=== PATIENT | male | born 1935 ===

== ENCOUNTER 2017-03-20 19:40 | Inpatient (IN) | payer MEDICARE, MEDICAID ==
--- NOTE | 2017-03-20 20:08 | C.PDOC ---
History Of Present Illness 81 y/o male with previous medical history of diabetes, hypertension, hypercholesterolemia, arthritis, CAD and Parkinson's disease brought to ED by EMS with reported complains of headache associated with dizziness, body aches. Patient is a poor historian. Reported "pain all over the place" as per EMS/ nursing staff. Patient lives at home alone with daily homemaker. Denies vomiting , diarrhea, or fevers. Review of prior records: DC FROM [facility] S/P UTI, RHABDOMYOLYSIS Time Seen by Provider: 03/20/17 20:06 Chief Complaint (Nursing): Dizziness/Lightheaded History Per: EMS, Other (nursing staff) History/Exam Limitations: other (poor historian) Onset/Duration Of Symptoms: Days Current Symptoms Are (Timing): Still Present Recent travel outside of the [place]: No Additional History Per: Prior Records Past Medical History Reviewed: Historical Data, Nursing Documentation, Vital Signs Vital Signs: Last Vital Signs Temp 97.9 F 03/20/17 19:51 Pulse 70 03/20/17 19:51 Resp 18 03/20/17 19:51 BP 161/54 H 03/20/17 19:51 Pulse Ox 99 03/20/17 21:26 - Medical History PMH: Arthritis, Asthma, CAD, Diabetes, HTN, Hypercholesterolemia, Hyperlipidemia , Parkinson's Disease, Chronic Kidney Disease Surgical History: Coronary Stent, Pacemaker - [facility] Procedures TETANUS TOXOID ADMINIST (10/01/13) Family History: States: Unknown Family Hx - Social History Hx Tobacco Use: No Hx Alcohol Use: No Hx Substance Use: No - Immunization History Hx Tetanus Toxoid Vaccination: No Hx Influenza Vaccination: Yes Hx Pneumococcal Vaccination: No Review Of Systems Review Of Systems: ROS cannot be obtained secondary to pt's inabilty to answer questions. Physical Exam - Physical Exam Appears: Non-toxic, No Acute Distress Skin: Warm, Dry Head: Atraumatic, Normacephalic Oral Mucosa: Moist Chest: Symmetrical Cardiovascular: Rhythm Regular Respiratory: Normal Breath Sounds, No Rales, No Rhonchi, No Wheezing Gastrointestinal/Abdominal: Soft, No Tenderness, No Guarding, No Rebound Back: Normal Inspection Extremity: Normal ROM, Capillary Refill (< 2 sec. ) Neurological/Psych: Oriented x3, Normal Speech, Normal Cognition ED Course And Treatment - Laboratory Results Result Diagrams: 03/20/17 20:32 03/20/17 20:32 O2 Sat by Pulse Oximetry: 99 (RA) Pulse Ox Interpretation: Normal - Radiology CXR: Interpreted by Me CXR Interpretation: Yes: No Acute Disease - CT Scan/US CT Head Other Rad Studies (CT/US): Read By Radiologist, Radiology Report Reviewed CT/US Interpretation: IMPRESSION: No acute intracranial abnormality. Progress - Data Reviewed Data Reviewed: Lab, Diagnostic imaging, EKG, Old records ED OBSERVATION Date of observation admission: 03/20/17 Time of observation admission: 20:15 - Observation admission statement Patient is being placed in observation because:: DIZZY, GEN PAIN, HEADACHE - Goals of Observation Goals of observation are:: MED CLEAR - Progress Note Progress Note: 03/20/17 20:24 VBG, CT Head, EKG, CXR, LABS, UA ORDERED. IVFs GIVEN. 03/20/17 21:16 EXAM UNCH FROM PRIOR. VSS. PT DENIES HO GI BLEED, PRIOR NEED FOR TRANSFUSION. + CONSTIPATION. PT ADVISED OF NEED FOR TRANSFUSION DUE TO CO DIZZYNESS. VOICES UNDERSTANDING BUT DOES NOT WISH BLOOD TRANSFUSION. AO3 CLEAR SPEECH AND THOUGHT, UNDERSTANDS RISK BENEFIT OF TRANSFUSION. WISHES DC HOME. 03/20/17 21:41 PT NOW AGREES FOR TRANSFUSION, ADMISSION. CONSENT SIGNED 03/20/17 21:42 D/W DR SIMON BENDER IRON SETTER WILL ADMIT Disposition Counseled Patient/Family Regarding: Studies Performed, Diagnosis, Need For Followup - Disposition Disposition: HOSPITALIZED Disposition Time: 21:42 Condition: STABLE - POA Present On Arrival: None - Clinical Impression Clinical Impression: UTI (urinary tract infection), GI bleed, Anemia - Scribe Statement The provider has reviewed the documentation as recorded by the Manuel Kincaid Provider Scribe Attestation: All medical record entries made by the Alemibannabelle were at my direction and personally dictated by me. I have reviewed the chart and agree that the record accurately reflects my personal performance of the history, physical exam, medical decision making, and the department course for this patient. I have also personally directed, reviewed, and agree with the discharge instructions and disposition. Decision To Admit - Pt Status Changed To: Hospital Disposition Of: Inpatient - Admit Certification Admit to Inpatient:: After my assessment, the patient will require hospitalization for at least two midnights. This is because of the severity of symptoms shown, intensity of services needed, and/or the medical risk in this patient being treated as an outpatient. - InPatient: Physician Admission Certification: I certify that this patient requires 2 or more midnights of care for the following reason:: SEE NOTE - . Bed Request Type: Telemetry Admitting Physician: Derek Mcmillan Patient Diagnosis: UTI (urinary tract infection), GI bleed, Anemia
[2017-03-20 20:34] LABS: BASO % 0.2 % (0.0-2.0); EOS # 0.1 K/uL (0.0-0.7); EOS % 2.1 % (0.0-4.0); HEMATOCRIT 25.3 % (35.0-51.0); LYMPH # 1.5 K/uL (1.0-4.3); LYMPH % 27.7 % (20.0-40.0); MEAN CELL VOLUME 81.2 fL (80.0-94.0); MEAN CORPUSCULAR HEMOGLOBIN 27.3 pg (27.0-31.0); MEAN CORPUSCULAR HGB CONC 33.6 g/dL (33.0-37.0); MEAN PLATELET VOLUME 8.8 fL (7.2-11.7); MONO # 0.6 K/uL (0.0-0.8); MONO % 10.7 % (0.0-10.0); RED CELL DISTRIBUTION WIDTH 15.6 % (11.5-14.5); WHITE BLOOD COUNT 5.6 K/uL (4.8-10.8)
[2017-03-20 20:38] LABS: VENOUS BLOOD GAS BASE EXCESS -1.7 mmol/L (0.0-2.0); VENOUS BLOOD GAS PCO2 45 mmHg (40-60); VENOUS BLOOD PH 7.34 (7.32-7.43)
[2017-03-20 20:46] LABS: CHLORIDE 101 mmol/L (98-107); POTASSIUM 4.4 mmol/L (3.6-5.2); SODIUM 135 mmol/L (132-148)
[2017-03-20 20:48] LABS: RBC URINE 3 /hpf (0-3); URINE BACTERIA FEW (<OCC); URINE BILIRUBIN NEGATIVE (NEGATIVE); URINE BLOOD NEGATIVE (NEGATIVE); URINE COLOR Yellow (YELLOW); URINE GLUCOSE (UA) 3+ mg/dL (Normal); URINE KETONE NEGATIVE (NEGATIVE); URINE LEUKOCYTE ESTERASE 3+ Leu/uL (Negative); URINE PROTEIN NEGATIVE (NEGATIVE); URINE UROBILINOGEN NORMAL mg/dL (0.2-1.0); WBC CLUMPS MOD /hpf; WBC URINE 371 /hpf (0-5)
[2017-03-20 20:48] LABS: GFR AFRICAN-AMERICAN > 60
[2017-03-20 20:49] LABS: BLOOD UREA NITROGEN 48 mg/dL (9-20); CALCIUM 8.7 mg/dl (8.6-10.4); CARBON DIOXIDE 24 mmol/L (22-30); GLUCOSE,RANDOM 258 mg/dL (75-110)
--- NOTE | 2017-03-20 21:08 | CT ---
EXAM: CT Head Without Intravenous Contrast CLINICAL HISTORY: 81 years old, male; Pain; Headache; Headache not specified; Additional info: Headache, gen pain ho parkinsons TECHNIQUE: Axial computed tomography images of the head/brain without intravenous contrast. This CT exam was performed using one or more of the following dose reduction techniques: automated exposure control, adjustment of the mA and/or kV according to patient size, and/or use of iterative reconstruction technique. COMPARISON: CT - HEAD W/O CONTRAST 10/25/2015 2:08:49 PM FINDINGS: Brain: [id number] atrophy. No intracranial hemorrhage. No mass. No definite edema. Ventricles: No hydrocephalus. Bones/joints: No acute fracture. Soft tissues: Unremarkable. Vasculature: Mild atherosclerotic disease of intracranial arteries. Sinuses: Scattered minimal mucosal thickening. Mastoid air cells: No mastoid effusion. Orbits: Unremarkable as visualized. IMPRESSION: 1. No acute intracranial abnormality. 2. Incidental/non-acute findings are described above.
[2017-03-20] MEDS: Sodium Chloride 0.9% 1,000 ML IV SCH (21:25)
[2017-03-20] MEDS ORDERED: cefTRIAXone IV 1 gm in Dextros 50 ML IV ONE (21:30)
[2017-03-20] MEDS ORDERED: cefTRIAXone IV 1 gm in Dextros 50 ML IVPB ONE (21:34)
--- NOTE | 2017-03-20 22:19 | CP.PCM.HP ---
<Rocael Lam - Last Filed: 03/21/17 02:45> History of Present Illness - History of Present Illness History of Present Illness: Patient is an 81 year old male, with PMHx of diabetes, hypertension, hypercholesterolemia, arthritis, CAD and Parkinson's disease brought to ED by BLS. He is c/o of headache, associated with dizziness, body aches. Patient is a poor historian, and is oriented to person and place, but not time or context. He denies abdominal pain, nausea, vomiting, diarrhea, urinary symptoms, subjective fever, or chills. Pt does admit to constipation but denies any clark blood in stools. He responds, "I don't know" when asked if he has ever had a colonoscopy. Patient lives at home alone with daily homemaker for some hours of the day. He states that he is able to walk with a rolling walker at baseline, and denies any recent falls. Review of EMR however shows syncopal episode/fall that led to admission in December of 2016. In that admission he was treated for UTI, and rhabdomyolysis. Will reach out to daughter for further history in AM. PMHx: see above PSHx: pacemaker placement, coronary stent Family Hx: denies Allergies: NKA PMD: unknown Pharmacy: [facility] Present on Admission - Present on Admission Any Indicators Present on Admission: No Review of Systems - Review of Systems Systems not reviewed;Unavailable: Altered Mental Status - Constitutional Constitutional: absent: Chills, Fever - EENT Eyes: absent: Change in Vision Ears: absent: Decreased Hearing Nose/Mouth/Throat: absent: Sore Throat - Cardiovascular Cardiovascular: absent: Chest Pain, Chest Pain at Rest, Dyspnea - Respiratory Respiratory: absent: Cough, Dyspnea on Exertion - Gastrointestinal Gastrointestinal: absent: Abdominal Pain, Nausea, Vomiting - Genitourinary Genitourinary: absent: Difficulty Urinating, Dysuria - Musculoskeletal Musculoskeletal: absent: Back Pain, Numbness, Tingling - Integumentary Integumentary: absent: Dry Skin, Wounds Additional comments: no sacral ulcers noted - Neurological Neurological: absent: Tingling, Weakness Past Patient History - Past Medical History & Family History Past Medical History?: Yes - Past Social History Smoking Status: Never Smoked - CARDIAC Hx Hypercholesterolemia: Yes Hx Hypertension: Yes Hx Pacemaker: Yes - PULMONARY Hx Asthma: Yes - NEUROLOGICAL Hx Parkinson's Disease: Yes - RENAL Hx Chronic Kidney Disease: Yes - ENDOCRINE/METABOLIC Hx Endocrine Disorders: Yes Hx Diabetes Mellitus Type 2: Yes - MUSCULOSKELETAL/RHEUMATOLOGICAL Hx Arthritis: Yes - PSYCHIATRIC Hx Substance Use: No - SURGICAL HISTORY Hx Coronary Stent: Yes - ANESTHESIA Hx Anesthesia: Yes Hx Anesthesia Reactions: No Meds Allergies/Adverse Reactions: Allergies Allergy/AdvReac Type Severity Reaction Status Date / Time No Known Allergies Allergy Verified 10/25/15 12:58 Physical Exam - Head Exam Head Exam: ATRAUMATIC, NORMAL INSPECTION, NORMOCEPHALIC - Eye Exam Eye Exam: EOMI Pupil Exam: PERRL - ENT Exam ENT Exam: Mucous Membranes Dry - Respiratory Exam Respiratory Exam: Clear to Auscultation Bilateral, NORMAL BREATHING PATTERN. absent: Accessory Muscle Use - Cardiovascular Exam Cardiovascular Exam: REGULAR RHYTHM, +S1, +S2 - GI/Abdominal Exam GI & Abdominal Exam: Normal Bowel Sounds, Soft. absent: Tenderness - Rectal Exam Rectal Exam: Hemorrhoids (internal), NORMAL INSPECTION. absent: Black Stool, Bloody Stool - Neurological Exam Neurological exam: Alert Additional comments: AAOx2 only, not oriented to time or context - Skin Skin Exam: Normal Color, Warm Results - Vital Signs Recent Vital Signs: Last Vital Signs Temp 97.9 F 03/20/17 19:51 Pulse 70 03/20/17 19:51 Resp 18 03/20/17 19:51 BP 161/54 H 03/20/17 19:51 Pulse Ox 99 03/20/17 21:43 - Labs Result Diagrams: 03/21/17 02:12 03/20/17 20:32 Assessment & Plan - Assessment and Plan (Free Text) Assessment: 81 yo male, with PMHx of diabetes, hypertension, hypercholesterolemia, arthritis, CAD and Parkinson's disease, who presents to [place] with dizziness. FOBT positive with downtrending hemoglobin, thus GI bleed. Plan: GI bleed H/H 8.5/25.3 - on previous admission in 12/22/16: 11.6/34.8 FOBT positive Type and screen Type and cross, 2 units PRBCs - Transfusion consent signed by daughter JOSE score: 2 (Anticoagulation can be considered, pt does have moderate risk for major bleed) f/u CBC Q6H, iron studies GI consult: Dr. Contreras, help appreciated - f/u reccs NS @ 100cc/hr Protonix Drip T2DM Accuchecks ACHS Insulin - low (npo) f/u A1C HTN Moderately elevated in ED Monitor CAD Hold home Lipitor Parkinson's Disease Hold home Sinimet UTI UA (03/20/17): LE 3+, Nitrate negative, WBC 371, few bacteria, 3+ glucose Ceftriaxone 1gm Daily x 3 days f/u urine, blood cx Prophylaxis VTE: Hold DVT due to active GI bleed, SCDs GI: Protonix Drip <Derek Mcmillan - Last Filed: 03/21/17 06:41> Results - Vital Signs Recent Vital Signs: Last Vital Signs Temp 98.3 F 03/21/17 03:01 Pulse 63 03/21/17 03:01 Resp 20 03/21/17 03:01 BP 145/40 L 03/21/17 03:01 Pulse Ox 96 03/21/17 03:01 - Labs Result Diagrams: 03/21/17 02:12 03/20/17 20:32 Labs: Laboratory Results - last 24 hr 03/21/17 02:12 WBC 5.8 RBC 3.00 L Hgb 8.1 L Hct 24.1 L MCV 80.3 MCH 27.1 MCHC 33.8 RDW 15.6 H Plt Count 218 MPV 8.7 Neut % (Auto) 55.9 Lymph % (Auto) 30.8 [place] % (Auto) 10.8 H Eos % (Auto) 2.3 Baso % (Auto) 0.2 Neut # 3.2 Lymph # 1.8 [place] # 0.6 Eos # 0.1 Baso # 0.0 Assessment & Plan - Date & Time Date: 03/21/17 (I have seen and examined the patient. I agree with the findings and plan of care as documented by Dr. Lam. Patient with GI bleed. Consult to GI. Protonix. Type and cross 2 units. Monitor CBC. If BP unstable or dramatic drop in hemoglobin, will transfuse. Iron studies. Also with history of diabetes and Parkinson's. Continue home meds. Monitor for acute changes.) Time: 06:40 Attending/Attestation - Attestation I have personally seen and examined this patient.: Yes I have fully participated in the care of the patient.: Yes I have reviewed all pertinent clinical information: Yes
[2017-03-21 02:16] LABS: BASO % 0.2 % (0.0-2.0); EOS # 0.1 K/uL (0.0-0.7); EOS % 2.3 % (0.0-4.0); HEMATOCRIT 24.1 % (35.0-51.0); LYMPH # 1.8 K/uL (1.0-4.3); LYMPH % 30.8 % (20.0-40.0); MEAN CELL VOLUME 80.3 fL (80.0-94.0); MEAN CORPUSCULAR HEMOGLOBIN 27.1 pg (27.0-31.0); MEAN CORPUSCULAR HGB CONC 33.8 g/dL (33.0-37.0); MEAN PLATELET VOLUME 8.7 fL (7.2-11.7); MONO # 0.6 K/uL (0.0-0.8); MONO % 10.8 % (0.0-10.0); NRBC % 0.1 % (0.0-2.0); RED CELL DISTRIBUTION WIDTH 15.6 % (11.5-14.5); WHITE BLOOD COUNT 5.8 K/uL (4.8-10.8)
[2017-03-21] MEDS: Pantoprazole 80 MG in Sodium Chloride 0.9% 100 ML IVP SCH ×2 (05:56→06:07)
[2017-03-21] MEDS: Sodium Chloride 0.9% 1,000 ML IV SCH ×2 (06:06→16:51)
[2017-03-21] MEDS: (Novolin R) Insulin Human Regular 100 units/ml vial SC SCH ×4 (07:30→22:17)
--- NOTE | 2017-03-21 08:52 | RAD ---
PROCEDURE: CHEST RADIOGRAPH, 1 VIEW HISTORY: GEN PAIN, DIZZY COMPARISON: 10/25/2015 FINDINGS: LUNGS: Mild venous congestion. Patchy left basilar airspace opacity with small left pleural effusion. Biapical pleural thickening with upper lobe granulomatous changes. Linear atelectatic changes in the left mid lung zone. PLEURA: As above. CARDIOVASCULAR: Cardiomegaly. Left-sided pacemaker. OSSEOUS STRUCTURES: Degenerative changes in the spine and shoulders. VISUALIZED UPPER ABDOMEN: Normal. OTHER FINDINGS: None. IMPRESSION: Mild venous congestion. Patchy left basilar airspace opacity with small left pleural effusion. Biapical pleural thickening with upper lobe granulomatous changes. Linear atelectatic changes in the left mid lung zone.
[2017-03-21] MEDS ORDERED: Pantoprazole 80 MG in Sodium Chloride 0.9% 100 ML IV SCH (13:00)
--- NOTE | 2017-03-21 14:00 | CP.PCM.CON ---
History of Present Illness - History of Present Illness History of Present Illness: GI consult requested by hospitalist- Daughter at bedside who is not able to give any history. History derived from the chart. This is a 81 year old male, with PMHx of diabetes, hypertension, hypercholesterolemia, arthritis, CAD with PCM and Parkinson's disease brought to ED with dizziness. Patient is a poor historian, and is oriented to person and place, but not time or context. He denies abdominal pain, nausea, vomiting, diarrhea, urinary symptoms, subjective fever, or chills or rectal bleeding or change in bowels. HE was admitted to [facility] with similar complains as no family was available and palliative consult was called but never established. Patient lives at home alone with daily homemaker for some hours of the day. Review of EMR however shows syncopal episode/fall that led to admission in December of 2016. In that admission he was treated for UTI, and rhabdomyolysis. Bedside rectal exam done in presence of daughter which was yellow stool. His Hb has dropped from baseline of 11 to 8. Family not sure if he had EGD/ colonoscopy in the past Review of Systems - Review of Systems Review of Systems: Patient not oriented and unable to give history Past Patient History - Past Medical History & Family History Past Medical History?: Yes - Past Social History Smoking Status: Never Smoked - CARDIAC Hx Hypercholesterolemia: Yes Hx Hypertension: Yes Hx Pacemaker: Yes - PULMONARY Hx Asthma: Yes - NEUROLOGICAL Hx Parkinson's Disease: Yes - RENAL Hx Chronic Kidney Disease: Yes - ENDOCRINE/METABOLIC Hx Endocrine Disorders: Yes Hx Diabetes Mellitus Type 2: Yes - MUSCULOSKELETAL/RHEUMATOLOGICAL Hx Falls: Yes - PSYCHIATRIC Hx Substance Use: No - SURGICAL HISTORY Hx Coronary Stent: Yes - ANESTHESIA Hx Anesthesia: Yes Hx Anesthesia Reactions: No Meds Allergies/Adverse Reactions: Allergies Allergy/AdvReac Type Severity Reaction Status Date / Time No Known Allergies Allergy Verified 10/25/15 12:58 - Medications Medications: Current Medications Sodium Chloride (Sodium Chloride 0.9%) 1,000 mls @ 100 mls/hr IV .Q10H NEO Last Admin: 03/21/17 06:06 Dose: 100 mls/hr Ceftriaxone Sodium 1 gm/ (Sodium Chloride) 100 mls @ 100 mls/hr IVPB DAILY NEO Stop: 03/24/17 10:01 Last Admin: 03/21/17 11:22 Dose: 100 mls/hr Insulin Human Regular (Novolin R) 0 unit SC ACHS NEO PRN Reason: Protocol Last Admin: 03/21/17 13:42 Dose: 2 unit Physical Exam - Constitutional Appears: Well, No Acute Distress, Younger Than Stated Age - Head Exam Head Exam: ATRAUMATIC, NORMAL INSPECTION, NORMOCEPHALIC - Eye Exam Eye Exam: Normal appearance Pupil Exam: NORMAL ACCOMODATION - ENT Exam ENT Exam: Mucous Membranes Moist, Normal Exam - Respiratory Exam Respiratory Exam: Clear to Auscultation Bilateral, NORMAL BREATHING PATTERN - Cardiovascular Exam Cardiovascular Exam: REGULAR RHYTHM, RRR, +S1, +S2 - GI/Abdominal Exam GI & Abdominal Exam: Normal Bowel Sounds, Soft. absent: Tenderness Additional comments: NOn tender. No guarding - Extremities Exam Extremities exam: Positive for: normal inspection - Back Exam Back exam: NORMAL INSPECTION Additional comments: no rash or decubiti - Neurological Exam Neurological exam: Alert, Reflexes Normal - Psychiatric Exam Psychiatric exam: Normal Affect, Normal Mood - Skin Skin Exam: Dry, Intact Results - Vital Signs Recent Vital Signs: Last Vital Signs Temp 97.8 F 03/21/17 10:30 Pulse 64 03/21/17 10:30 Resp 20 03/21/17 10:30 BP 168/63 H 03/21/17 10:30 Pulse Ox 95 03/21/17 10:30 - Labs Result Diagrams: 03/21/17 02:12 03/20/17 20:32 Labs: Laboratory Results - last 24 hr 03/21/17 03/21/17 02:12 11:46 WBC 5.8 RBC 3.00 L Hgb 8.1 L Hct 24.1 L MCV 80.3 MCH 27.1 MCHC 33.8 RDW 15.6 H Plt Count 218 MPV 8.7 Neut % (Auto) 55.9 Lymph % (Auto) 30.8 [place] % (Auto) 10.8 H Eos % (Auto) 2.3 Baso % (Auto) 0.2 Neut # 3.2 Lymph # 1.8 [place] # 0.6 Eos # 0.1 Baso # 0.0 POC Glucose (mg/dL) 208 H Assessment & Plan - Assessment and Plan (Free Text) Assessment: This is a 81 yr old M with multiple comorbidities with positive UA and FOBT + with drop in Hb from 11 to 8 admitted for dizziness. No overt GI bleeding. Rectal exam at bedside with daughter and nurse present showed yellow stool. Unknown history of past endoscopic exam. Will watch for overt bleeding and trend Hct. Will send anemia work up and discuss with family regarding goals of care. Multiple admissions for same complaint and recent palliative care consult at [facility] but no established goals. Plan: - No overt s/s of GI bleeding - PPI daily in am - Discontinue PPI gtt - Start heart healthy diet - Discussion by team with family regarding goals of care - UA positive- send urine cultures - Iron panel to be sent - Transfusion as required by cardiac status - No urgent need for EGD/ colonoscopy although will benefit if family agrees - GI/DVT prophylaxis- please don't hold DVT prophylaxis- patient does not have overt GI bleeding. Has occult positive which is one sample and has low sensitivity - Will follow
--- NOTE | 2017-03-21 22:08 | CP.PCM.PN ---
<Liban Cross - Last Filed: 03/22/17 09:29> Subjective - Date & Time of Evaluation Date of Evaluation: 03/21/17 Time of Evaluation: 11:37 - Subjective Subjective: Pt seen and examined. Pt combative and not cooperative with exam. Pt says he feels fine. ROS unattainable due to pt being uncooperative. Objective - Vital Signs/Intake and Output Vital Signs (last 24 hours): Temp Pulse Resp BP Pulse Ox 98.6 F 60 20 165/72 H 95 03/21/17 15:28 03/21/17 18:09 03/21/17 15:28 03/21/17 15:28 03/21/17 15:28 Intake and Output: 03/21/17 03/22/17 18:59 06:59 Intake Total 1350 Balance 1350 - Medications Medications: Current Medications Sodium Chloride (Sodium Chloride 0.9%) 1,000 mls @ 100 mls/hr IV .Q10H NEO Last Admin: 03/21/17 16:51 Dose: 100 mls/hr Ceftriaxone Sodium 1 gm/ (Sodium Chloride) 100 mls @ 100 mls/hr IVPB DAILY NEO Stop: 03/24/17 10:01 Last Admin: 03/21/17 11:22 Dose: 100 mls/hr Insulin Human Regular (Novolin R) 0 unit SC ACHS NEO PRN Reason: Protocol Last Admin: 03/21/17 17:43 Dose: 2 unit - Labs Labs: 03/21/17 02:12 - Constitutional Appears: No Acute Distress - Head Exam Head Exam: ATRAUMATIC - Eye Exam Eye Exam: EOMI, PERRL - ENT Exam ENT Exam: Mucous Membranes Moist. absent: Mucous Membranes Dry - Respiratory Exam Respiratory Exam: Clear to Ausculation Bilateral. absent: Rales, Rhonchi, Wheezes - Cardiovascular Exam Cardiovascular Exam: +S1, +S2. absent: Gallop, Rubs - GI/Abdominal Exam GI & Abdominal Exam: Soft. absent: Tenderness - Extremities Exam Extremities Exam: Full ROM. absent: Pedal Edema - Neurological Exam Neurological Exam: Alert, Awake - Psychiatric Exam Psychiatric exam: Normal Affect, Normal Mood - Skin Skin Exam: Normal Color, Warm Assessment and Plan - Assessment and Plan (Free Text) Assessment: GI Bleed: H/H 8.1/24.1 FOBT positive Type and cross, 2 units PRBCs transfused GI consult: Dr. Guidry, help appreciated NS @ 100cc/hr Protonix Drip Follow up GI Recs UTI Afebrile, nontachycardic No leukocytosis UA: LE 3+, Nitrate negative, WBC 371, few bacteria, 3+ glucose Ceftriaxone 1 gm iv qd Urine cultures positive for e.coli Diabetes Mellitus: Accuchecks ACHS Insulin - low (npo) f/u A1C HTN Monitor; fluctuation between hypertension an dhypotension CAD Hold home Lipitor Parkinson's Disease Hold home Sinimet Prophylactic MeasureS: VTE: Hold DVT due to active GI bleed, SCDs GI: Protonix Drip <Madhu Larsen - Last Filed: 04/25/17 16:33> Objective - Vital Signs/Intake and Output Vital Signs (last 24 hours): Temp Pulse Resp BP Pulse Ox 97.9 F 60 20 123/59 L 96 04/01/17 16:00 04/01/17 16:00 04/01/17 16:00 04/01/17 16:00 04/01/17 16:00 - Labs Labs: 04/01/17 06:50 04/01/17 06:50 Attending/Attestation - Attestation I have personally seen and examined this patient.: Yes I have fully participated in the care of the patient.: Yes I have reviewed all pertinent clinical information, including history, physical exam and plan: Yes Notes (Text): Patient Seen and examined with the resident. Agree with the resident's evaluation, assessment and plan. GI Bleed: H/H 8.1/24.1 FOBT positive Type and cross, 2 units PRBCs transfused GI consult: Dr. Guidry, help appreciated NS @ 100cc/hr Protonix Drip Follow up GI Recs UTI Afebrile, nontachycardic No leukocytosis UA: LE 3+, Nitrate negative, WBC 371, few bacteria, 3+ glucose Ceftriaxone 1 gm iv qd Urine cultures positive for e.coli Diabetes Mellitus: Accuchecks ACHS Insulin - low (npo) f/u A1C
--- NOTE | 2017-03-21 23:41 | CARD ---
APPROVED REPORT EKG Measurement Heart [id number] <Conclusion> Undetermined rhythm Left axis deviation Right bundle branch block Inferior infarct, age undetermined Abnormal ECG
[2017-03-22] MEDS: Sodium Chloride 0.9% 1,000 ML IV SCH ×2 (03:02→13:34)
[2017-03-22 06:33] LABS: CHLORIDE 110 mmol/L (98-107); IRON 20 ug/dL (49-181); POTASSIUM 3.8 mmol/L (3.6-5.2); SODIUM 140 mmol/L (132-148)
[2017-03-22 06:35] LABS: ALKALINE PHOSPHATASE 49 U/L (38-126); ALT/SGPT 19 U/L (21-72); AST/SGOT 13 U/L (17-59); BILIRUBIN,TOTAL 1.3 mg/dL (0.2-1.3); BLOOD UREA NITROGEN 18 mg/dL (9-20); CARBON DIOXIDE 22 mmol/L (22-30); GFR AFRICAN-AMERICAN > 60; GLUCOSE,RANDOM 153 mg/dL (75-110); TOTAL PROTEIN 5.7 g/dL (6.3-8.3)
[2017-03-22 06:36] LABS: CALCIUM 8.2 mg/dl (8.6-10.4); MAGNESIUM 1.9 mg/dL (1.6-2.3); PHOSPHOROUS 2.7 mg/dL (2.5-4.5)
[2017-03-22 07:10] LABS: BASO % 0.2 % (0.0-2.0); EOS # 0.1 K/uL (0.0-0.7); EOS % 2.2 % (0.0-4.0); HEMATOCRIT 23.3 % (35.0-51.0); LYMPH # 1.9 K/uL (1.0-4.3); LYMPH % 34.7 % (20.0-40.0); MEAN CORPUSCULAR HEMOGLOBIN 27.1 pg (27.0-31.0); MEAN CORPUSCULAR HGB CONC 33.5 g/dL (33.0-37.0); MEAN PLATELET VOLUME 8.7 fL (7.2-11.7); MONO # 0.6 K/uL (0.0-0.8); MONO % 11.1 % (0.0-10.0); NRBC % 0.1 % (0.0-2.0); RED CELL DISTRIBUTION WIDTH 15.7 % (11.5-14.5); WHITE BLOOD COUNT 5.5 K/uL (4.8-10.8)
--- NOTE | 2017-03-22 08:07 | CP.PCM.PN ---
Subjective - Date & Time of Evaluation Date of Evaluation: 03/22/17 Time of Evaluation: 08:01 - Subjective Subjective: Patient seen and examined, resting comfortably in bed. He is awake and alert, though not oriented and unable to participate in meaningful conversation. According to nursing staff, no acute events overnight. No reported abdominal pain, nausea, vomiting, or rectal bleeding. Review of systems not able to be performed given patient with dementia. Objective - Vital Signs/Intake and Output Vital Signs (last 24 hours): Temp Pulse Resp BP Pulse Ox 98.4 F 69 20 180/61 H 96 03/21/17 23:20 03/22/17 00:00 03/21/17 23:20 03/21/17 23:20 03/21/17 23:20 Intake and Output: 03/22/17 03/22/17 06:59 18:59 Intake Total 1470 Balance 1470 - Medications Medications: Current Medications Sodium Chloride (Sodium Chloride 0.9%) 1,000 mls @ 100 mls/hr IV .Q10H [facility] Last Admin: 03/22/17 03:02 Dose: 100 mls/hr Ceftriaxone Sodium 1 gm/ (Sodium Chloride) 100 mls @ 100 mls/hr IVPB DAILY [facility] Stop: 03/24/17 10:01 Last Admin: 03/21/17 11:22 Dose: 100 mls/hr Insulin Human Regular (Novolin R) 0 unit SC ACHS [facility] PRN Reason: Protocol Last Admin: 03/21/17 22:17 Dose: Not Given - Labs Labs: 03/22/17 06:12 03/22/17 06:12 - Constitutional Appears: Non-toxic, No Acute Distress - Head Exam Head Exam: NORMAL INSPECTION - Eye Exam Eye Exam: EOMI, Normal appearance - ENT Exam ENT Exam: Mucous Membranes Moist - Respiratory Exam Respiratory Exam: Clear to Ausculation Bilateral - Cardiovascular Exam Cardiovascular Exam: REGULAR RHYTHM, +S1, +S2 - GI/Abdominal Exam GI & Abdominal Exam: Soft, Normal Bowel Sounds Additional comments: non tender to palpation in four quadrants - Extremities Exam Extremities Exam: Normal Inspection - Skin Skin Exam: Dry, Intact, Normal Color, Warm Assessment and Plan - Assessment and Plan (Free Text) Assessment: Parkinson's, dementia DM / HTN Hyperlipidemia CAD Dizziness in setting of iron deficiency anemia, fecal occult blood + UTI - gram negative urosepsis Plan: - Diet as tolerated - H/H stable, continue to monitor and transfuse as needed. No overt bleeding noted. - Continue with antibiotic therapy for UTI, awaiting urine culture results - No planned GI intervention given absence of overt GI bleeding and patient with multiple medical comorbidities, risks likely outweigh benefits in this situation. Will continue to monitor patient clinical course.
[2017-03-22 09:13] LABS: RETIC% 3.6 % (0.5-1.5)
[2017-03-22] MEDS: (Novolin R) Insulin Human Regular 100 units/ml vial SC SCH ×4 (09:44→22:00)
--- NOTE | 2017-03-22 15:50 | CP.PCM.PN ---
Addendum entered and electronically signed by Liban Cross DO 03/22/17 16: 05: Iron low, started on feosol 325 mg po bid Original Note: <Liban Cross - Last Filed: 03/22/17 15:46> Subjective - Date & Time of Evaluation Date of Evaluation: 03/22/17 Time of Evaluation: 09:07 - Subjective Subjective: Pt seen and examined. Pt agitated. PT reports that he is feeling well. Pt denies fever, chills, chest pain, shortness of breath, nausea, and vomiting. Objective - Vital Signs/Intake and Output Vital Signs (last 24 hours): Temp Pulse Resp BP Pulse Ox 97.9 F 66 20 178/71 H 95 03/22/17 10:29 03/22/17 10:29 03/22/17 10:29 03/22/17 10:29 03/22/17 10:29 Intake and Output: 03/22/17 03/22/17 06:59 18:59 Intake Total 1470 600 Balance 1470 600 - Medications Medications: Current Medications Ferrous Sulfate (Feosol) 325 mg PO BID [facility] Sodium Chloride (Sodium Chloride 0.9%) 1,000 mls @ 100 mls/hr IV .Q10H [facility] Last Admin: 03/22/17 13:34 Dose: 100 mls/hr Ceftriaxone Sodium 1 gm/ (Sodium Chloride) 100 mls @ 100 mls/hr IVPB DAILY [facility] Stop: 03/24/17 10:01 Last Admin: 03/22/17 10:30 Dose: 100 mls/hr Insulin Human Regular (Novolin R) 0 unit SC ACHS [facility] PRN Reason: Protocol Last Admin: 03/22/17 13:33 Dose: Not Given Pantoprazole Sodium (Protonix Inj) 40 mg IVP DAILY [facility] Last Admin: 03/22/17 10:30 Dose: 40 mg - Labs Labs: 03/22/17 06:12 03/22/17 06:12 - Constitutional Appears: Non-toxic - Head Exam Head Exam: ATRAUMATIC, NORMOCEPHALIC - Eye Exam Eye Exam: EOMI - ENT Exam ENT Exam: Mucous Membranes Moist - Neck Exam Neck Exam: Full ROM. absent: Lymphadenopathy - Respiratory Exam Respiratory Exam: Clear to Ausculation Bilateral - Cardiovascular Exam Cardiovascular Exam: +S1. absent: Gallop - GI/Abdominal Exam GI & Abdominal Exam: Soft. absent: Tenderness - Extremities Exam Extremities Exam: absent: Pedal Edema - Neurological Exam Neurological Exam: Alert, Altered, Awake - Psychiatric Exam Psychiatric exam: Normal Affect, Normal Mood - Skin Skin Exam: Normal Color, Warm Assessment and Plan - Assessment and Plan (Free Text) Assessment: GI Bleed: H/H: 7.8/23.3 FOBT positive 2 units of prbcs intially transfused on admission 1 more unit of prbcs transfused today GI consult: Dr. Guidry, help appreciated NS @ 100cc/hr Protonix Drip discontinued as per GI As per GI, no overt bleed and no planned GI intervention at this time UTI Afebrile, nontachycardic No leukocytosis UA: LE 3+, Nitrate negative, WBC 371, few bacteria, 3+ glucose Urine cultrus positive for ESBL ID, Dr. Jane, consulted. Help appreciated. Ceftriaxone 1 gm iv qd Urine cultures positive for e.coli Diabetes Mellitus: Accuchecks ACHS Insulin - low (npo) HTN Monitor; fluctuation between hypertension and hypotension CAD Hold home Lipitor Parkinson's Disease/Dementia: Restart sinemet 1 tab po tid Psych, Dr. Cortez, consulted. Help appreciated. Prophylactic MeasureS: VTE: Hold DVT due to active GI bleed, SCDs GI: Protonix 40 mg IV qd <Madhu Larsen - Last Filed: 04/25/17 16:43> Objective - Vital Signs/Intake and Output Vital Signs (last 24 hours): Temp Pulse Resp BP Pulse Ox 97.9 F 60 20 123/59 L 96 04/01/17 16:00 04/01/17 16:00 04/01/17 16:00 04/01/17 16:00 04/01/17 16:00 - Labs Labs: 04/01/17 06:50 04/01/17 06:50 Attending/Attestation - Attestation I have personally seen and examined this patient.: Yes I have fully participated in the care of the patient.: Yes I have reviewed all pertinent clinical information, including history, physical exam and plan: Yes Notes (Text): Anemia due to blood loss Acute GI Bleed: H/H: 7.8/23.3 FOBT positive 2 units of prbcs intially transfused on admission 1 more unit of prbcs transfused today GI consult: Dr. Guidry, help appreciated NS @ 100cc/hr Protonix Drip discontinued as per GI As per GI, no overt bleed and no planned GI intervention at this time UTI Afebrile, nontachycardic No leukocytosis UA: LE 3+, Nitrate negative, WBC 371, few bacteria, 3+ glucose Urine cultrus positive for ESBL ID, Dr. Jane, consulted. Help appreciated. Ceftriaxone 1 gm iv qd Urine cultures positive for e.coli Diabetes Mellitus: Accuchecks ACHS Insulin - low (npo)
[2017-03-22] MEDS: Meropenem 500 MG in Sodium Chloride 0.9% 100 ML IVPB SCH ×2 (16:32→22:52)
[2017-03-22] MEDS ORDERED: DiphenhydrAMINE 50 mg/ml Inj IM STA ×2 (18:50→20:37)
[2017-03-23] MEDS: Meropenem 500 MG in Sodium Chloride 0.9% 100 ML IVPB SCH ×4 (03:54→22:24)
[2017-03-23] MEDS ORDERED: Influenza Virus Vaccine 45 mcg/0.5 ml Syr IM ONE (07:18)
[2017-03-23] MEDS: (Novolin R) Insulin Human Regular 100 units/ml vial SC SCH ×4 (10:23→21:56)
[2017-03-23] MEDS: Sodium Chloride 0.9% 1,000 ML IV SCH ×2 (10:24→19:15)
--- NOTE | 2017-03-23 10:27 | CP.PCM.PN ---
Subjective - Date & Time of Evaluation Date of Evaluation: 03/23/17 Time of Evaluation: 10:21 - Subjective Subjective: Patient seen and examined. No acute events. Received 1 u PRBC for Hb 7.8 yesterday. No new complaint. Denies any current abdominal pain/nausea or vomiting. Per nursing, has not had any bowel movements. No rectal bleeding/ melena. Full ROS unable to be obtained due to underlying dementia Objective - Vital Signs/Intake and Output Vital Signs (last 24 hours): Temp Pulse Resp BP Pulse Ox 97.6 F 84 20 190/77 H 97 03/23/17 07:05 03/23/17 07:05 03/23/17 07:05 03/23/17 07:05 03/23/17 07:05 Intake and Output: 03/23/17 03/23/17 06:59 18:59 Intake Total 1480 Balance 1480 - Medications Medications: Current Medications Carbidopa/Levodopa (Sinemet) 1 tab PO TID [facility] Last Admin: 03/22/17 19:12 Dose: Not Given Diphenhydramine HCl (Benadryl) 12.5 mg PO Q6 PRN PRN Reason: Agitation Ferrous Sulfate (Feosol) 325 mg PO BID [facility] Last Admin: 03/22/17 19:12 Dose: Not Given Sodium Chloride (Sodium Chloride 0.9%) 1,000 mls @ 100 mls/hr IV .Q10H [facility] Last Admin: 03/22/17 13:34 Dose: 100 mls/hr Ceftriaxone Sodium 1 gm/ (Sodium Chloride) 100 mls @ 100 mls/hr IVPB DAILY [facility] Stop: 03/24/17 10:01 Last Admin: 03/22/17 10:30 Dose: 100 mls/hr Meropenem 500 mg/ Sodium (Chloride) 100 mls @ 100 mls/hr IVPB Q6H [facility] Last Admin: 03/23/17 03:54 Dose: 100 mls/hr Insulin Human Regular (Novolin R) 0 unit SC ACHS [facility] PRN Reason: Protocol Last Admin: 03/22/17 22:00 Dose: Not Given Lorazepam (Ativan) 0.5 mg PO Q6 PRN PRN Reason: Agitation Pantoprazole Sodium (Protonix Inj) 40 mg IVP DAILY [facility] Last Admin: 03/22/17 10:30 Dose: 40 mg - Labs Labs: 03/22/17 06:12 03/22/17 06:12 - Constitutional Appears: No Acute Distress - Eye Exam Eye Exam: absent: Scleral icterus - ENT Exam ENT Exam: Mucous Membranes Moist - Respiratory Exam Additional comments: coarse b/l breath sounds - Cardiovascular Exam Cardiovascular Exam: +S1, +S2 - GI/Abdominal Exam Additional comments: abdomen soft, non tender to palpation, no rebound or guarding, bowel sounds present - Extremities Exam Extremities Exam: absent: Pedal Edema Additional comments: mittens in place - Neurological Exam Additional comments: alert, answers questions, but disoriented to date - Skin Skin Exam: Dry Assessment and Plan - Assessment and Plan (Free Text) Assessment: 8This is an 81 year old male, with PMHx of diabetes, hypertension, hypercholesterolemia, arthritis, CAD, Parkinson dementia who is admitted with dizziness. He is stool occult positive anemia. Plan: Monitor for GI blood loss, no evidence of overt bleeding Monitor H/H, follow up post transfusion CBC Continue treatment of UTI as per primary medical service Establish overall goals of care--no acute need for endoscopic evaluation at this time Diet as tolerated
--- NOTE | 2017-03-23 15:05 | PCM.PSYCH ---
Initial Psychiatric Evaluation - Initial Psychiatric Evaluation Type of Admission: Voluntary Legal Status: Capacity Chief Complaint (in patient's own words): "I want to go home" History of Present Illness and Precipitating Events: Pt is an 81 year old male, who lives alone and has a homemaker. Psychiatry was consulted because patient was acting confused and combative. Patient appeared very disorganized an internally preoccupied. He was irritable, agitated and remained combative towards staff. He was oriented to place, but remained disoriented to year, month, date or day of the week. Patient was saying he wants to go home and that "there are drugs in the food, " and that the drugs are making him sick. He says he hears police and is seeing things. Patient says he has a history of depression and was seeing someone for it in the past but could not specify where. Per nursing patient is very combative, trying to punch any one who comes near him. Last night it took six people to restraint him. Patient is paranoid, disorganized, and internally preoccupied. Current Medications: Active Medications Generic Name Dose Route Start Last Admin Trade Name Freq PRN Reason Stop Dose Admin Carbidopa/Levodopa 1 tab 03/22/17 18:00 03/23/17 13:19 Sinemet PO 1 tab TID [facility] Administration Diphenhydramine HCl 12.5 mg 03/22/17 17:38 Benadryl PO Q6 PRN Agitation Ferrous Sulfate 325 mg 03/22/17 18:00 03/23/17 10:23 Feosol PO 325 mg BID [facility]O Administration Sodium Chloride 1,000 mls @ 100 mls/hr 03/20/17 20:30 03/23/17 10:24 Sodium Chloride 0.9% IV Not Given .Q10H [facility]O Meropenem 500 mg/ Sodium 100 mls @ 100 mls/hr 03/22/17 16:30 03/23/17 10:22 Chloride IVPB 100 mls/hr Q6H [facility] Administration Imipenem/Cilastatin Sodium 500 100 mls @ 100 mls/hr 03/23/17 12:00 03/23/17 13:18 mg/ Sodium Chloride IVPB 100 mls/hr Q6H [facility] Administration Insulin Human Regular 0 unit 03/21/17 07:30 03/23/17 13:19 Novolin R SC 3 unit ACHS [facility] Administration Protocol Lorazepam 0.5 mg 03/22/17 17:30 Ativan PO Q6 PRN Agitation Pantoprazole Sodium 40 mg 03/22/17 10:00 03/23/17 10:23 Protonix Inj IVP 40 mg DAILY [facility] Administration Past Psychiatric History - Past Psychiatric History Previous Treatment History: None Pertinent Medical Hx (Current Medical&Sleep Prob, Allergies): Allergies Allergy/AdvReac Type Severity Reaction Status Date / Time No Known Allergies Allergy Verified 10/25/15 12:58 Acetaminophen [Tylenol 325mg tab] 650 mg PO Q6 PRN #30 tab 12/22/16 Carbidopa/Levodopa 25/100 mg [Sinemet] 1 tab PO TID #90 tab 12/22/16 Furosemide [Lasix] 20 mg PO DAILY #30 tab 12/22/16 Meropenem [Merrem IV] 1 gm IV Q8 #30 pds 12/22/16 Metoprolol Tartrate [Lopressor] 25 mg PO Q12 #60 tab 12/22/16 Pramipexole Di-HCl [Mirapex] 0.5 mg PO TID #90 tab 12/22/16 amLODIPine [Norvasc] 5 mg PO BID #30 tab 12/22/16 Glimepiride 03/20/17 Insulin Aspart, Recombinant [Novolog] 0 unit 03/20/17 Insulin Detemir [Levemir] 0 unit 03/20/17 Insulin Glargine, Recombina [Lantus] 0 unit 03/20/17 Klonopin 03/20/17 Lipitor 03/20/17 Lisinopril 03/20/17 Seroquel 03/20/17 Review of Systems - Review of Systems All systems: reviewed and no additional remarkable complaints except - Psychiatric Psychiatric: Anxiety, Irritability, Paranoia Mental Status Examination - Personal Presentation Personal Presentation: Looks older than stated age - Affect Affect: Broad - Motor Activity Motor Activity: Psychomotor Agitation - Reliability in Providing Information Reliability in Providing Information: Poor, due to alteration in thoughts, Poor , due to cognitve impairment - Speech Speech: Disorganized - Mood Mood: Anxious - Formal Thought Process Formal Thought Process: Paranoia, Loosening of associations - Cognitive Functions Orientation: Place Sensorium: Other (delirious) Attention/Concentration: Easily distracted Judgement: Imparied, as evidence by: Poor judgement, Imparied, as evidence by: Lack of insight into illness - Risk Risk: Diminished functioning - Strength & Assets Inventory Strength & Assets Inventory: Family support DSM 5 DX - DSM 5 DSM 5 Diagnosis: Delirium Rule out Alzheimer's dementia with behavioral disturbances - Recommended/Plan of Treatment Treatment Recommendations and Plan of Treatment: Delirium Rule out Alzheimer's dementia with behavioral disturbances CBT Psychoeducation Supportive therapy, group therapy, individual therapy Haldol 1 mg every 6 hours when necessary Ativan 0.5 mg every 6 hours when necessary Benadryl 25 mg every 6 hours when necessary - Smoking Cessation Smoking Cessation Initiated: No
--- NOTE | 2017-03-23 17:51 | CP.PCM.CON ---
History of Present Illness - History of Present Illness History of Present Illness: 81 year old male, brought to ED with dizziness. HE was admitted to [facility] with similar complaints Hx of syncopal episode/fall that led to admission in December of 2016. In that admission he was treated for UTI, and rhabdomyolysis. Now growing ESBL E coli in urine as in December PMHx of diabetes, hypertension, hypercholesterolemia, arthritis, CAD with PCM and Parkinson's disease Review of Systems - Review of Systems Systems not reviewed;Unavailable: Altered Mental Status - Constitutional Constitutional: Fever - EENT Ears: absent: As Per HPI, Decreased Hearing, Ear Discharge, Ear Pain, Tinnitus, Abnormal Hearing, Disequilibrium, Dizziness, Other Nose/Mouth/Throat: absent: As Per HPI, Epistaxis, Nasal Congestion, Nasal Discharge, Nasal Obstruction, Nasal Trauma, Nose Pain, Post Nasal Drip, Sinus Pain, Sinus Pressure, Bleeding Gums, Change in Voice, Dental Pain, Dry Mouth, Dysphagia, Halitosis, Hoarsness, Lip Swelling, Mouth Lesions, Mouth Pain, Odynophagia, Sore Throat, Throat Swelling, Tongue Swelling, Facial Pain, Neck Pain, Neck Mass, Other - Cardiovascular Cardiovascular: absent: As Per HPI, Acrocyanosis, Chest Pain, Chest Pain at Rest , Chest Pain with Activity, Claudication, Diaphoresis, Dyspnea, Dyspnea on Exertion, Edema, Irregular Heart Rhythm, Pain Radiating to Arm/Neck/Jaw, Leg Edema, Leg Ulcers, Lightheadedness, Orthopnea, Palpitations, Paroxysmal Nocturnal Dyspnea, Pedal Edema, Radiating Pain, Rapid Heart Rate, Slow Heart Rate, Syncope, Other - Respiratory Respiratory: absent: As Per HPI, Cough, Dyspnea, Hemoptysis, Dyspnea on Exertion , Wheezing, Snoring, Stridor, Pain on Inspiration, Chest Congestion, Excessive Mucous Production, Change in Mucous Color, Pain with Coughing, Other - Gastrointestinal Gastrointestinal: absent: As Per HPI, Abdominal Pain, Belching, Bloating, Change in Bowel Habits, Change in Stool Character, Coffee Ground Emesis, Constipation, Cramping, Diarrhea, Dyspepsia, Dysphagia, Early Satiety, Excessive Flatus, Fecal Incontinence, Heartburn, Hematemesis, Hematochezia, Loose Stools, Melena, Nausea, Odynophagia, Temesmus, Vomiting, Other - Genitourinary Genitourinary: absent: As Per HPI, Change in Urinary Stream, Difficulty Urinating, Dysuria, Flank Pain, Hematuria, Pyuria, Nocturia, Urinary Incontinence, Urinary Frequency, Urinary Hesitance, Urinary Urgency, Voiding Freq/Small Amts, Freq UTI, Hx Renal/Bladder Calculi, Hx /Renal Surgery, Bladder Distension, Other - Musculoskeletal Musculoskeletal: absent: As Per HPI, Abnormal Gait, Arthralgias, Atrophy, Back Pain, Deformity, Joint Swelling, Limited Range of Motion, Loss of Height, Muscle Cramps, Muscle Weakness, Myalgias, Neck Pain, Numbness, Radiating Pain into Limb, Stiffness, Tingling, Other - Integumentary Integumentary: absent: As Per HPI, Acne, Alopecia, Bleeding Lesions, Change in Hair, Change in Nails, Change in Pigmentation, Changing Lesions, Dry Skin, Erythema, Furuncle, Hirsutism, Lesions, New Lesions, Non-Healing Lesions, Photosensitivity, Pruritus, Rash, Skin Pain, Skin Ulcer, Sores, Striae, Swelling , Unusual Bruising, Wounds, Jaundice, Other - Neurological Neurological: As Per HPI - Psychiatric Psychiatric: absent: As Per HPI, Abnormal Sleep Pattern, Anhedonia, Anxiety, Auditory Hallucinations, Behavioral Changes, Change in Appetite, Change in Libido, Confusion, Depression, Difficulty Concentrating, Hallucinations, Homicidal Ideation, Hopelessness, Irritability, Memory Loss, Mood Swings, Panic Attacks, Paranoia, Suicidal Ideation, Visual Hallucinations, Tactile Hallucinations, Other - Endocrine Endocrine: absent: As Per HPI, Change in Body Appearance, Change in Libido, Cold Intolorance, Deepening of Voice, Excessive Sweating, Fatigue, Flushing, Heat Intolorance, Increase in Ring/Shoe/Hat Size, Palpitations, Polydipsia, Polyphagia, Polyuria, Other - Hematologic/Lymphatic Hematologic: absent: As Per HPI, Easy Bleeding, Easy Bruising, Lymphadenopathy, Other Past Patient History - Past Medical History & Family History Past Medical History?: Yes - Past Social History Smoking Status: Never Smoked - CARDIAC Hx Hypercholesterolemia: Yes Hx Hypertension: Yes Hx Pacemaker: Yes - PULMONARY Hx Asthma: Yes - NEUROLOGICAL Hx Parkinson's Disease: Yes - RENAL Hx Chronic Kidney Disease: Yes - ENDOCRINE/METABOLIC Hx Endocrine Disorders: Yes Hx Diabetes Mellitus Type 2: Yes - MUSCULOSKELETAL/RHEUMATOLOGICAL Hx Falls: Yes - PSYCHIATRIC Hx Substance Use: No - SURGICAL HISTORY Hx Coronary Stent: Yes - ANESTHESIA Hx Anesthesia: Yes Hx Anesthesia Reactions: No Meds Allergies/Adverse Reactions: Allergies Allergy/AdvReac Type Severity Reaction Status Date / Time No Known Allergies Allergy Verified 10/25/15 12:58 - Medications Medications: Current Medications Carbidopa/Levodopa (Sinemet) 1 tab PO TID [facility] Last Admin: 03/23/17 17:40 Dose: 1 tab Diphenhydramine HCl (Benadryl) 12.5 mg PO Q6 PRN PRN Reason: Agitation Ferrous Sulfate (Feosol) 325 mg PO BID [facility] Last Admin: 03/23/17 17:40 Dose: 325 mg Haloperidol (Haldol) 1 mg PO Q6 PRN PRN Reason: Agitation Haloperidol Lactate (Haldol) 1 mg IM Q6 PRN PRN Reason: Agitation IF REFUSE PO Sodium Chloride (Sodium Chloride 0.9%) 1,000 mls @ 100 mls/hr IV .Q10H [facility] Last Admin: 03/23/17 10:24 Dose: Not Given Meropenem 500 mg/ Sodium (Chloride) 100 mls @ 100 mls/hr IVPB Q6H [facility] Last Admin: 03/23/17 17:38 Dose: 100 mls/hr Imipenem/Cilastatin Sodium 500 (mg/ Sodium Chloride) 100 mls @ 100 mls/hr IVPB Q6H [facility] Last Admin: 03/23/17 17:39 Dose: 100 mls/hr Insulin Human Regular (Novolin R) 0 unit SC ACHS [facility] PRN Reason: Protocol Last Admin: 03/23/17 17:39 Dose: 1 unit Lorazepam (Ativan) 0.5 mg PO Q6 PRN PRN Reason: IRRITABILITY Last Admin: 03/23/17 17:40 Dose: 0.5 mg Pantoprazole Sodium (Protonix Inj) 40 mg IVP DAILY [facility] Last Admin: 03/23/17 10:23 Dose: 40 mg Physical Exam - Constitutional Appears: Non-toxic, Chronically Ill - Head Exam Head Exam: NORMOCEPHALIC - Eye Exam Eye Exam: PERRL. absent: Scleral icterus - ENT Exam ENT Exam: Mucous Membranes Dry, Normal External Ear Exam - Neck Exam Neck exam: Negative for: Lymphadenopathy - Respiratory Exam Respiratory Exam: Decreased Breath Sounds, Rhonchi - Cardiovascular Exam Cardiovascular Exam: REGULAR RHYTHM, +S1, +S2 - GI/Abdominal Exam GI & Abdominal Exam: Diminished Bowel Sounds, Soft. absent: Tenderness - Rectal Exam Rectal Exam: Deferred - Exam Exam: NORMAL INSPECTION - Extremities Exam Extremities exam: Negative for: calf tenderness, pedal edema - Back Exam Back exam: absent: CVA tenderness (L), CVA tenderness (R), paraspinal tenderness - Neurological Exam Neurological exam: Alert, Altered, CN II-XII Intact - Psychiatric Exam Psychiatric exam: Normal Mood - Skin Skin Exam: Dry Results - Vital Signs Recent Vital Signs: Last Vital Signs Temp 98.7 F 03/23/17 15:12 Pulse 72 03/23/17 15:12 Resp 20 03/23/17 15:12 BP 107/67 03/23/17 15:12 Pulse Ox 96 03/23/17 15:12 - Labs Result Diagrams: 03/22/17 06:12 03/22/17 06:12 Labs: Laboratory Results - last 24 hr 03/22/17 03/23/17 03/23/17 23:00 06:33 11:20 POC Glucose (mg/dL) 220 H 288 H Blood Type O POSITIVE Antibody Screen Negative 03/23/17 17:01 POC Glucose (mg/dL) 176 H Blood Type Antibody Screen Assessment & Plan (1) UTI (urinary tract infection) Status: Acute (2) Altered mental status Status: Acute - Assessment and Plan (Free Text) Assessment: recurrent esbl e coli uti recc: eval options limited consider bladder scan and renal ultrasound may need prolonged course of rx
--- NOTE | 2017-03-23 19:06 | CP.PCM.PN ---
<Liban Cross - Last Filed: 04/05/17 14:45> Subjective - Date & Time of Evaluation Date of Evaluation: 03/23/17 Time of Evaluation: 07:23 - Subjective Subjective: Pt seen and examined. Pt reports that he is feeling well. According to the nurse , pt was agitated and confused last night. Pt uncooperative and ROS unattainable. Objective - Vital Signs/Intake and Output Vital Signs (last 24 hours): Temp Pulse Resp BP Pulse Ox 98.7 F 72 20 107/67 96 03/23/17 15:12 03/23/17 15:12 03/23/17 15:12 03/23/17 15:12 03/23/17 15:12 Intake and Output: 03/23/17 03/24/17 18:59 06:59 Intake Total 680 Balance 680 - Medications Medications: Current Medications Carbidopa/Levodopa (Sinemet) 1 tab PO TID [facility] Last Admin: 03/23/17 17:40 Dose: 1 tab Diphenhydramine HCl (Benadryl) 12.5 mg PO Q6 PRN PRN Reason: Agitation Ferrous Sulfate (Feosol) 325 mg PO BID [facility] Last Admin: 03/23/17 17:40 Dose: 325 mg Haloperidol (Haldol) 1 mg PO Q6 PRN PRN Reason: Agitation Haloperidol Lactate (Haldol) 1 mg IM Q6 PRN PRN Reason: Agitation IF REFUSE PO Sodium Chloride (Sodium Chloride 0.9%) 1,000 mls @ 100 mls/hr IV .Q10H [facility] Last Admin: 03/23/17 10:24 Dose: Not Given Meropenem 500 mg/ Sodium (Chloride) 100 mls @ 100 mls/hr IVPB Q6H [facility] Last Admin: 03/23/17 17:38 Dose: 100 mls/hr Imipenem/Cilastatin Sodium 500 (mg/ Sodium Chloride) 100 mls @ 100 mls/hr IVPB Q6H [facility] Last Admin: 03/23/17 17:39 Dose: 100 mls/hr Insulin Human Regular (Novolin R) 0 unit SC ACHS [facility] PRN Reason: Protocol Last Admin: 03/23/17 17:39 Dose: 1 unit Lorazepam (Ativan) 0.5 mg PO Q6 PRN PRN Reason: IRRITABILITY Last Admin: 03/23/17 17:40 Dose: 0.5 mg Pantoprazole Sodium (Protonix Inj) 40 mg IVP DAILY [facility] Last Admin: 03/23/17 10:23 Dose: 40 mg - Labs Labs: 03/22/17 06:12 03/22/17 06:12 - Constitutional Appears: No Acute Distress - Head Exam Head Exam: ATRAUMATIC, NORMOCEPHALIC - Eye Exam Eye Exam: EOMI, PERRL - ENT Exam ENT Exam: Mucous Membranes Moist. absent: Mucous Membranes Dry - Neck Exam Neck Exam: Full ROM. absent: Lymphadenopathy - Respiratory Exam Respiratory Exam: Clear to Ausculation Bilateral. absent: Rales, Rhonchi, Wheezes - Cardiovascular Exam Cardiovascular Exam: +S1, +S2. absent: Gallop, Rubs - GI/Abdominal Exam GI & Abdominal Exam: Soft. absent: Distended, Guarding, Tenderness - Extremities Exam Extremities Exam: absent: Pedal Edema - Neurological Exam Neurological Exam: Alert, Altered, Awake - Psychiatric Exam Psychiatric exam: Agitated, Normal Mood - Skin Skin Exam: Normal Color, Warm Assessment and Plan - Assessment and Plan (Free Text) Assessment: GI Bleed: H/H: 7.8/23.3 FOBT positive 2 units of prbcs intially transfused on admission 1 more unit of prbcs transfused today GI consult: Dr. Guidry, help appreciated NS @ 100cc/hr Protonix Drip discontinued as per GI As per GI, no overt bleed and no planned GI intervention at this time UTI Afebrile, nontachycardic No leukocytosis UA: LE 3+, Nitrate negative, WBC 371, few bacteria, 3+ glucose Urine cultrus positive for ESBL ID, Dr. Jane, consulted. Help appreciated. Pt started on meropenem IV 500 mg q6h Urine cultures positive for e.coli Diabetes Mellitus: Accuchecks ACHS Insulin - low (npo) HTN Monitor; fluctuation between hypertension and hypotension CAD Hold home Lipitor Parkinson's Disease/Dementia: Restart sinemet 1 tab po tid Psych, Dr. Cortez, consulted. Help appreciated. Prophylactic MeasureS: VTE: Hold DVT due to active GI bleed, SCDs GI: Protonix 40 mg IV qd <Madhu Larsen - Last Filed: 05/12/17 11:53> Objective - Vital Signs/Intake and Output Vital Signs (last 24 hours): Temp Pulse Resp BP Pulse Ox 97.9 F 60 20 123/59 L 96 04/01/17 16:00 04/01/17 16:00 04/01/17 16:00 04/01/17 16:00 04/01/17 16:00 - Labs Labs: 04/01/17 06:50 04/01/17 06:50 Attending/Attestation - Attestation I have personally seen and examined this patient.: Yes I have fully participated in the care of the patient.: Yes I have reviewed all pertinent clinical information, including history, physical exam and plan: Yes Notes (Text): Patient Seen and examined with the resident. Agree with the resident's evaluation, assessment and plan. GI Bleed: Anemia due to acute blood loss UTI due to e.coli Diabetes Mellitus: HTN CAD Parkinson's Disease/Dementia:
[2017-03-24] MEDS: (Novolin R) Insulin Human Regular 100 units/ml vial SC SCH ×2 (00:58→17:05)
[2017-03-24 08:22] LABS: BASO % 0.2 % (0.0-2.0); EOS # 0.3 K/uL (0.0-0.7); EOS % 4.8 % (0.0-4.0); LYMPH # 1.6 K/uL (1.0-4.3); LYMPH % 25.1 % (20.0-40.0); MEAN CELL VOLUME 81.8 fL (80.0-94.0); MEAN CORPUSCULAR HEMOGLOBIN 27.3 pg (27.0-31.0); MEAN CORPUSCULAR HGB CONC 33.4 g/dL (33.0-37.0); MEAN PLATELET VOLUME 8.2 fL (7.2-11.7); MONO # 0.7 K/uL (0.0-0.8); MONO % 10.8 % (0.0-10.0); NRBC % 0.1 % (0.0-2.0); RED CELL DISTRIBUTION WIDTH 15.8 % (11.5-14.5); WHITE BLOOD COUNT 6.4 K/uL (4.8-10.8)
[2017-03-24 08:41] LABS: ALKALINE PHOSPHATASE 52 U/L (38-126); ALT/SGPT 17 U/L (21-72); AST/SGOT 15 U/L (17-59); BILIRUBIN,TOTAL 1.5 mg/dL (0.2-1.3); BLOOD UREA NITROGEN 9 mg/dL (9-20); CALCIUM 8.1 mg/dl (8.6-10.4); CARBON DIOXIDE 25 mmol/L (22-30); CHLORIDE 106 mmol/L (98-107); GFR AFRICAN-AMERICAN > 60; GLUCOSE,RANDOM 153 mg/dL (75-110); MAGNESIUM 1.9 mg/dL (1.6-2.3); PHOSPHOROUS 2.9 mg/dL (2.5-4.5); POTASSIUM 3.7 mmol/L (3.6-5.2); SODIUM 140 mmol/L (132-148); TOTAL PROTEIN 5.8 g/dL (6.3-8.3)
[2017-03-24] MEDS ORDERED: DiphenhydrAMINE 50 mg/ml Inj ONE ×2 (08:51→13:47)
[2017-03-24] MEDS: Meropenem 500 MG in Sodium Chloride 0.9% 100 ML IVPB SCH (19:02)
--- NOTE | 2017-03-24 19:09 | CP.PCM.PN ---
<Liban Cross - Last Filed: 04/05/17 15:38> Subjective - Date & Time of Evaluation Date of Evaluation: 03/24/17 Time of Evaluation: 07:16 - Subjective Subjective: Pt seen and examined. Pt reports that he feels fine. Pt slight agitated. Pt confused at baseline. ROS unattainable due to pt being uncooperative. Objective - Vital Signs/Intake and Output Vital Signs (last 24 hours): Temp Pulse Resp BP Pulse Ox 98.7 F 72 20 107/67 96 03/23/17 15:12 03/23/17 15:12 03/23/17 15:12 03/23/17 15:12 03/23/17 15:12 - Medications Medications: Current Medications Carbidopa/Levodopa (Sinemet) 1 tab PO TID [facility] Last Admin: 03/24/17 19:05 Dose: Not Given Diphenhydramine HCl (Benadryl) 12.5 mg PO Q6 PRN PRN Reason: Agitation Ferrous Sulfate (Feosol) 325 mg PO BID [facility] Last Admin: 03/24/17 18:45 Dose: Not Given Haloperidol (Haldol) 1 mg PO Q6 PRN PRN Reason: Agitation Haloperidol Lactate (Haldol) 1 mg IM Q6 PRN PRN Reason: Agitation IF REFUSE PO Sodium Chloride (Sodium Chloride 0.9%) 1,000 mls @ 100 mls/hr IV .Q10H [facility] Last Admin: 03/23/17 19:15 Dose: Not Given Meropenem 500 mg/ Sodium (Chloride) 100 mls @ 100 mls/hr IVPB Q6H [facility] Last Admin: 03/24/17 19:02 Dose: 100 mls/hr Insulin Human Regular (Novolin R) 0 unit SC ACHS [facility] PRN Reason: Protocol Last Admin: 03/24/17 17:05 Dose: 3 unit Lorazepam (Ativan) 0.5 mg PO Q6 PRN PRN Reason: IRRITABILITY Last Admin: 03/23/17 17:40 Dose: 0.5 mg Pantoprazole Sodium (Protonix Inj) 40 mg IVP DAILY [facility] Last Admin: 03/23/17 10:23 Dose: 40 mg - Labs Labs: 03/22/17 06:12 03/22/17 06:12 - Constitutional Appears: No Acute Distress - Head Exam Head Exam: ATRAUMATIC, NORMOCEPHALIC - Eye Exam Eye Exam: EOMI, PERRL - ENT Exam ENT Exam: Mucous Membranes Moist. absent: Mucous Membranes Dry - Neck Exam Neck Exam: Full ROM. absent: Lymphadenopathy - Respiratory Exam Respiratory Exam: Clear to Ausculation Bilateral. absent: Rales, Rhonchi, Wheezes - Cardiovascular Exam Cardiovascular Exam: +S1, +S2. absent: Gallop, Rubs - GI/Abdominal Exam GI & Abdominal Exam: Soft, Normal Bowel Sounds. absent: Distended, Tenderness - Extremities Exam Extremities Exam: Full ROM. absent: Pedal Edema - Neurological Exam Neurological Exam: Alert, Altered, Awake. absent: Oriented x3 - Psychiatric Exam Psychiatric exam: Agitated, Normal Mood - Skin Skin Exam: Normal Color, Warm Assessment and Plan - Assessment and Plan (Free Text) Assessment: GI Bleed: Resolved FOBT positive 2 units of prbcs intially transfused on admission 1 more unit of prbcs transfused today GI consult: Dr. Guidry, help appreciated NS @ 100cc/hr Protonix Drip discontinued as per GI As per GI, no overt bleed and no planned GI intervention at this time UTI Afebrile, nontachycardic No leukocytosis UA: LE 3+, Nitrate negative, WBC 371, few bacteria, 3+ glucose Urine cultures positive for ESBL ID, Dr. Jane, consulted. Help appreciated. Continue meropenem IV 500 mg q6h Diabetes Mellitus: Accuchecks ACHS Insulin - low (npo) HTN Monitor; fluctuation between hypertension and hypotension CAD Hold home Lipitor Parkinson's Disease/Dementia: Restart sinemet 1 tab po tid Psych, Dr. Cortez, consulted. Help appreciated. Prophylactic MeasureS: VTE: Hold DVT due to active GI bleed, SCDs GI: Protonix 40 mg IV qd <Madhu Larsen - Last Filed: 05/12/17 11:53> Objective - Vital Signs/Intake and Output Vital Signs (last 24 hours): Temp Pulse Resp BP Pulse Ox 97.9 F 60 20 123/59 L 96 04/01/17 16:00 04/01/17 16:00 04/01/17 16:00 04/01/17 16:00 04/01/17 16:00 - Labs Labs: 04/01/17 06:50 04/01/17 06:50 Attending/Attestation - Attestation I have personally seen and examined this patient.: Yes I have fully participated in the care of the patient.: Yes I have reviewed all pertinent clinical information, including history, physical exam and plan: Yes Notes (Text): Patient Seen and examined with the resident. Agree with the resident's evaluation, assessment and plan. GI Bleed: Anemia due to acute blood loss UTI due to e.coli Diabetes Mellitus: HTN CAD Parkinson's Disease/Dementia:
[2017-03-24 19:25] LABS: ALB/GLOB RATIO 1.1 (1.0-2.1)
--- NOTE | 2017-03-24 22:39 | PCM.PYCHPN ---
Psychiatric Progress Note - Psychiatric Progress Note Patient seen today, length of contact: 16 min Patient Chief Complaint: "I want to go home" Problems Identified/Issues Discussed: Patient seen and evaluated, chart reviewed and discussed with the nurse. Patient remained disorganized and internally preoccupied. Patient remained irritable and agitated. He is still disoriented to time, place and person. Patient still appears paranoid and delusional. He gets irritable and agitated often, then gets injectable Haldol form staff. Medication Change: No Medical Record Reviewed: Yes Mental Status Examination - Cognitive Function Orientation: Place Memory: Intact Attention: Poor Concentration: Poor Association: Loose Fund of Knowledge: Poor - Mood Mood: Depressed, Anxious - Affect Affect: Broad, Constricted - Formal Thought Process Formal Thought Process: Hallucinations, Delusions, Paranoia, Loosening of associations, Flight of ideas - Suicidal Ideation Suicidal Ideation: No - Homicidal Ideation Homicidal Ideation: No Goal/Treatment Plan - Goal/Treatment Plan Need for Continued Stay: Discharge may exacerbated symptoms, Severe functional impairment Progress Toward Problem(s) and Goals/Treatment Plan: Delirium Rule out Alzheimer's dementia with behavioral disturbances CBT Psychoeducation Supportive therapy, group therapy, individual therapy Haldol 1 mg every 6 hours when necessary Ativan 0.5 mg every 6 hours when necessary Benadryl 25 mg every 6 hours when necessary - Smoking Cessation Smoking Cessation Initiated: No
[2017-03-25] MEDS ORDERED: DiphenhydrAMINE 50 mg/ml Inj ONE (00:21)
[2017-03-25] MEDS: Meropenem 500 MG in Sodium Chloride 0.9% 100 ML IVPB SCH ×5 (00:54→22:30)
[2017-03-25] MEDS: (Novolin R) Insulin Human Regular 100 units/ml vial SC SCH ×5 (10:53→22:31)
--- NOTE | 2017-03-25 12:14 | CP.PCM.PN ---
Subjective - Date & Time of Evaluation Date of Evaluation: 03/24/17 Time of Evaluation: 08:20 - Subjective Subjective: Patient seen and examined, resting in bed comfortably. Patient was seen on 03/24 , note is dictated later due to system unavailability of EMR. No acute events overnight. He denies abdominal pain, nausea, vomiting, fever/chills. As per nursing director, patient with 1 loose bowel movement this morning without presence of rectal bleeding. Tolerating PO diet without difficulty. Review of systems unavailable due to patient with advanced dementia. Objective - Vital Signs/Intake and Output Vital Signs (last 24 hours): Temp Pulse Resp BP Pulse Ox 97.9 F 62 20 187/75 H 96 03/25/17 07:21 03/25/17 07:21 03/25/17 07:21 03/25/17 07:21 03/25/17 07:21 - Medications Medications: Current Medications Amlodipine Besylate (Norvasc) 10 mg PO DAILY [facility] Carbidopa/Levodopa (Sinemet) 1 tab PO TID [facility] Last Admin: 03/25/17 11:05 Dose: 1 tab Diphenhydramine HCl (Benadryl) 12.5 mg PO Q6 PRN PRN Reason: Agitation Ferrous Sulfate (Feosol) 325 mg PO BID [facility] Last Admin: 03/25/17 11:07 Dose: 325 mg Haloperidol (Haldol) 1 mg PO Q6 PRN PRN Reason: Agitation Haloperidol Lactate (Haldol) 1 mg IM Q6 PRN PRN Reason: Agitation IF REFUSE PO Meropenem 500 mg/ Sodium (Chloride) 100 mls @ 100 mls/hr IVPB Q6H [facility] Last Admin: 03/25/17 11:04 Dose: 100 mls/hr Insulin Human Regular (Novolin R) 0 unit SC ACHS [facility] PRN Reason: Protocol Last Admin: 03/25/17 11:05 Dose: Not Given Lorazepam (Ativan) 0.5 mg PO Q6 PRN PRN Reason: IRRITABILITY Last Admin: 03/23/17 17:40 Dose: 0.5 mg Pantoprazole Sodium (Protonix Inj) 40 mg IVP DAILY [facility] Last Admin: 03/25/17 11:05 Dose: 40 mg - Labs Labs: 03/24/17 04:00 03/24/17 04:00 - Constitutional Appears: Non-toxic, No Acute Distress - Head Exam Head Exam: NORMAL INSPECTION - Eye Exam Eye Exam: EOMI - ENT Exam ENT Exam: Mucous Membranes Moist - Respiratory Exam Respiratory Exam: Clear to Ausculation Bilateral - Cardiovascular Exam Cardiovascular Exam: REGULAR RHYTHM, +S1, +S2 - GI/Abdominal Exam GI & Abdominal Exam: Soft, Normal Bowel Sounds Additional comments: non tender to palpation in four quadrants - Extremities Exam Extremities Exam: Normal Inspection - Skin Skin Exam: Dry, Intact, Normal Color, Warm Assessment and Plan - Assessment and Plan (Free Text) Assessment: DM / HTN Dementia Anemia, fecal occult blood positive UTI Plan: - Diet as tolerated - Continue with antibiotic therapy as per medical team - H/H stable, continue to monitor, no overt bleeding noted - Given advanced dementia and medical comorbidities, risks of endoscopic evaluation likely outweigh any potential benefits at this time, particularly given absence of active bleeding noted. Would continue with supportive care and observation for time being. Will sign off case, please reconsult as necessary, thank you.
[2017-03-25 12:24] LABS: BASO % 0.3 % (0.0-2.0); EOS # 0.1 K/uL (0.0-0.7); EOS % 1.8 % (0.0-4.0); HEMATOCRIT 26.7 % (35.0-51.0); LYMPH # 0.8 K/uL (1.0-4.3); LYMPH % 14.7 % (20.0-40.0); MEAN CELL VOLUME 82.1 fL (80.0-94.0); MEAN CORPUSCULAR HEMOGLOBIN 27.6 pg (27.0-31.0); MEAN CORPUSCULAR HGB CONC 33.6 g/dL (33.0-37.0); MEAN PLATELET VOLUME 8.1 fL (7.2-11.7); MONO # 0.6 K/uL (0.0-0.8); MONO % 10.8 % (0.0-10.0); NRBC % 0.1 % (0.0-2.0); RED CELL DISTRIBUTION WIDTH 15.7 % (11.5-14.5); WHITE BLOOD COUNT 5.7 K/uL (4.8-10.8)
[2017-03-25 12:34] LABS: CHLORIDE 106 mmol/L (98-107); POTASSIUM 3.8 mmol/L (3.6-5.2); SODIUM 140 mmol/L (132-148)
[2017-03-25 12:36] LABS: ALB/GLOB RATIO 0.9 (1.0-2.1); ALKALINE PHOSPHATASE 45 U/L (38-126); ALT/SGPT 22 U/L (21-72); AST/SGOT 20 U/L (17-59); BILIRUBIN,TOTAL 1.7 mg/dL (0.2-1.3); BLOOD UREA NITROGEN 10 mg/dL (9-20); CARBON DIOXIDE 26 mmol/L (22-30); GFR AFRICAN-AMERICAN > 60; TOTAL PROTEIN 5.4 g/dL (6.3-8.3)
[2017-03-25 12:37] LABS: CALCIUM 8.1 mg/dl (8.6-10.4); GLUCOSE,RANDOM 269 mg/dL (75-110); MAGNESIUM 1.8 mg/dL (1.6-2.3); PHOSPHOROUS 2.8 mg/dL (2.5-4.5)
--- NOTE | 2017-03-25 14:20 | CON ---
DATE: 03/25/2017 REASON FOR CONSULTATION: Uncontrolled hypertension. The patient is an 81-year-old male who has a history of hypertension, diabetes mellitus, hyp erlipidemia, arthritis, parkinsonism, coronary artery disease. According to the ER documentation, pr esents because of headache and dizziness. At this time, the patient is uncooperative and at times vi olent, punching, kicking and spitting. The patient is not able to answer any questions. SOCIAL HISTORY: From what I gathered from the nursing team that the patient lives at home. He is no t a shelter resident. MEDICATIONS: Ativan 0.5 mg q. 6 hours p.r.n., Benadryl 12.5 mg q. 6 hours, Feosol 325 mg once a day, Haldol 1 mg p.o. q. 6 hours p.r.n. and 1 mg IM q. 6 hours p.r.n., meropenem 500 mg intravenously q. 6 hours, Norvasc 10 mg once a day, Sinemet 1 tablet t.i.d. REVIEW OF SYSTEMS: No reported tension. No reported fever. PHYSICAL EXAMINATION: GENERAL: The patient is an elderly male who is uncooperative and combative, but does not appear to b e in any respiratory distress. VITAL SIGNS: Blood pressure 171/62, heart rate 75, temperature 97.9, respirations 20. HEENT: Pale conjunctivae. CHEST: Clear. HEART: S1, S2 regular. EXTREMITIES: No edema. LABORATORIES: Today's SMA-7 is within normal limits except for glucose of 269. Total bilirubin is 1 .7, slightly elevated. Hemoglobin and hematocrit 9.0 and 26.7, white count and platelet count today are within normal limits. Serum ketones was negative. EKG revealed significant baseline artifact an d was suggested to be undetermined rhythm, although in my opinion, it is most likely sinus rhythm, in ferior infarct of indeterminate age. An echocardiograph study performed in 10/2014 reported ejection fraction in the range of 45%-50%, mildly dilated left ventricle and mildly dilated left atrium. Hea d CT scan without contrast: No acute intracranial abnormality. Chest x-ray revealed borderline card iomegaly and ICD with biventricular pacemaker is noted. ASSESSMENT: 1. Uncontrolled hypertension. 2. Congestive heart failure, status post implantable cardioverter-defibrillator, biventricular pacem moe placement. 3. Dizziness and headache. 4. Anemia. RECOMMENDATIONS: Continue current intravenous meropenem. The patient is not in a status to take any oral medications as he is very agitated and uncooperative. Continue IM Haldol p.r.n. I will start clonidine patch at 0.2 mg weekly until the patient is able to take oral pills. Obtain an echocardiog raph study. Start subcutaneous Lovenox at 30 mg daily. Grey Reese MD cc: [id number] TT: 03/25/2017 14:19:26 Confirmation # [id number] Dictation # [id number]
--- NOTE | 2017-03-25 14:43 | CP.PCM.PN ---
Subjective - Date & Time of Evaluation Date of Evaluation: 03/25/17 Time of Evaluation: 08:00 - Subjective Subjective: denies abdominal pain, nausea, vomiting, fever/chills. IV RX IN PROGRESS Objective - Vital Signs/Intake and Output Vital Signs (last 24 hours): Temp Pulse Resp BP Pulse Ox 97.9 F 75 20 171/62 H 98 03/25/17 07:21 03/25/17 13:04 03/25/17 13:04 03/25/17 13:04 03/25/17 13:04 - Medications Medications: Current Medications Amlodipine Besylate (Norvasc) 10 mg PO DAILY [facility] Carbidopa/Levodopa (Sinemet) 1 tab PO TID [facility] Last Admin: 03/25/17 13:08 Dose: Not Given Clonidine HCl (Catapres-Tts2 0.2 Mg/24 Hr) 0.2 patch TD Q7D@1000 [facility] Diphenhydramine HCl (Benadryl) 12.5 mg PO Q6 PRN PRN Reason: Agitation Enoxaparin Sodium (Lovenox) 30 mg SC DAILY [facility] Ferrous Sulfate (Feosol) 325 mg PO BID [facility] Last Admin: 03/25/17 13:07 Dose: Not Given Haloperidol (Haldol) 1 mg PO Q6 PRN PRN Reason: Agitation Haloperidol Lactate (Haldol) 1 mg IM Q6 PRN PRN Reason: Agitation IF REFUSE PO Meropenem 500 mg/ Sodium (Chloride) 100 mls @ 100 mls/hr IVPB Q6H [facility] Last Admin: 03/25/17 11:04 Dose: 100 mls/hr Insulin Human Regular (Novolin R) 0 unit SC ACHS [facility] PRN Reason: Protocol Last Admin: 03/25/17 13:09 Dose: 3 unit Lorazepam (Ativan) 0.5 mg PO Q6 PRN PRN Reason: IRRITABILITY Last Admin: 03/23/17 17:40 Dose: 0.5 mg Pantoprazole Sodium (Protonix Inj) 40 mg IVP DAILY [facility] Last Admin: 03/25/17 11:05 Dose: 40 mg - Labs Labs: 03/25/17 12:08 03/25/17 12:08 - Constitutional Appears: Non-toxic - Head Exam Head Exam: NORMOCEPHALIC - Eye Exam Eye Exam: PERRL. absent: Nystagmus, Scleral icterus - ENT Exam ENT Exam: Mucous Membranes Dry - Neck Exam Neck Exam: absent: Lymphadenopathy - Respiratory Exam Respiratory Exam: Decreased Breath Sounds, Rhonchi - Cardiovascular Exam Cardiovascular Exam: REGULAR RHYTHM, +S1, +S2 - GI/Abdominal Exam GI & Abdominal Exam: Distended, Soft - Rectal Exam Rectal Exam: Deferred - Exam Exam: NORMAL INSPECTION Assessment and Plan (1) UTI (urinary tract infection) Status: Acute (2) Altered mental status Status: Acute - Assessment and Plan (Free Text) Assessment: RECURRENT UTI/ESBL + E COLI R/O OBSTRUCTION CONSIDER EVAL
[2017-03-25] MEDS: Enoxaparin 30 mg Syringe SC SCH (15:21)
--- NOTE | 2017-03-25 23:35 | CP.PCM.PN ---
<Liban Cross - Last Filed: 03/25/17 23:32> Subjective - Date & Time of Evaluation Date of Evaluation: 03/25/17 Time of Evaluation: 07:47 - Subjective Subjective: Pt seen and examined. Pt combative and agitated at bedside. ROS unattainable due to pt's mental status. Objective - Vital Signs/Intake and Output Vital Signs (last 24 hours): Temp Pulse Resp BP Pulse Ox 98.7 F 71 20 174/68 H 98 03/25/17 22:00 03/25/17 22:00 03/25/17 22:00 03/25/17 22:00 03/25/17 22:00 Intake and Output: 03/25/17 03/26/17 18:59 06:59 Intake Total 580 Balance 580 - Medications Medications: Current Medications Amlodipine Besylate (Norvasc) 10 mg PO DAILY [facility] Carbidopa/Levodopa (Sinemet) 1 tab PO TID [facility] Last Admin: 03/25/17 19:21 Dose: 1 tab Clonidine HCl (Catapres-Tts2 0.2 Mg/24 Hr) 0.2 patch TD Q7D@1000 [facility] Last Admin: 03/25/17 15:21 Dose: 0.2 patch Diphenhydramine HCl (Benadryl) 12.5 mg PO Q6 PRN PRN Reason: Agitation Enoxaparin Sodium (Lovenox) 30 mg SC DAILY [facility] Last Admin: 03/25/17 15:21 Dose: 30 mg Ferrous Sulfate (Feosol) 325 mg PO BID [facility] Last Admin: 03/25/17 19:22 Dose: 325 mg Haloperidol (Haldol) 1 mg PO Q6 PRN PRN Reason: Agitation Haloperidol Lactate (Haldol) 1 mg IM Q6 PRN PRN Reason: Agitation IF REFUSE PO Meropenem 500 mg/ Sodium (Chloride) 100 mls @ 100 mls/hr IVPB Q6H [facility] Last Admin: 03/25/17 22:30 Dose: 100 mls/hr Insulin Human Regular (Novolin R) 0 unit SC ACHS [facility] PRN Reason: Protocol Last Admin: 03/25/17 22:31 Dose: 2 unit Lorazepam (Ativan) 0.5 mg PO Q6 PRN PRN Reason: IRRITABILITY Last Admin: 03/23/17 17:40 Dose: 0.5 mg Pantoprazole Sodium (Protonix Inj) 40 mg IVP DAILY [facility] Last Admin: 03/25/17 11:05 Dose: 40 mg - Labs Labs: 03/25/17 12:08 03/25/17 12:08 - Constitutional Appears: Combative, Agitated, Confused - Head Exam Head Exam: ATRAUMATIC, NORMOCEPHALIC - Eye Exam Eye Exam: EOMI - ENT Exam ENT Exam: Mucous Membranes Moist - Respiratory Exam Respiratory Exam: Clear to Ausculation Bilateral. absent: Rales, Rhonchi - Cardiovascular Exam Cardiovascular Exam: +S1, +S2. absent: Gallop, Rubs - GI/Abdominal Exam GI & Abdominal Exam: Soft, Normal Bowel Sounds. absent: Distended, Tenderness - Extremities Exam Extremities Exam: Full ROM. absent: Pedal Edema - Neurological Exam Neurological Exam: Altered, Awake - Psychiatric Exam Psychiatric exam: Agitated - Skin Skin Exam: Normal Color, Warm Assessment and Plan - Assessment and Plan (Free Text) Assessment: GI Bleed: Resolved H/H: 9.0/26.7 FOBT positive 2 units of prbcs intially transfused on admission GI consult: Dr. Guidry, help appreciated NS @ 100cc/hr Protonix Drip discontinued as per GI As per GI, no overt bleed and no planned GI intervention at this time UTI Afebrile, nontachycardic No leukocytosis UA: LE 3+, Nitrate negative, WBC 371, few bacteria, 3+ glucose ID, Dr. Jane, consulted. Help appreciated. Ceftriaxone 1 gm iv qd Meropenem 500 mg IV q6h Urine cultures positive for ESBL Diabetes Mellitus: Accuchecks ACHS Insulin - low (npo) HTN BP 187/75 Pt refused po norvasc Clonidine 0.2 mg patch q7d CAD Hold home Lipitor Parkinson's Disease/Dementia: Restart sinemet 1 tab po tid Psych, Dr. Cortez, consulted. Help appreciated. Ativan 0.5 mg IV q6h prn for anxiety Benadryl 12.5 mg po q6h prn for agitation Haldol held Prophylactic Measures: VTE: SCDs GI: Protonix 40 mg po qd <Madhu Larsen - Last Filed: 05/01/17 12:16> Objective - Vital Signs/Intake and Output Vital Signs (last 24 hours): Temp Pulse Resp BP Pulse Ox 97.9 F 60 20 123/59 L 96 04/01/17 16:00 04/01/17 16:00 04/01/17 16:00 04/01/17 16:00 04/01/17 16:00 - Labs Labs: 04/01/17 06:50 04/01/17 06:50 Attending/Attestation - Attestation I have personally seen and examined this patient.: Yes I have fully participated in the care of the patient.: Yes I have reviewed all pertinent clinical information, including history, physical exam and plan: Yes Notes (Text): Patient seen and examined with the resident. Agree with the resident's evaluation, assessment and plan. GI Bleed UTI Diabetes Mellitus: HTN
[2017-03-26] MEDS: Meropenem 500 MG in Sodium Chloride 0.9% 100 ML IVPB SCH ×4 (04:30→22:42)
[2017-03-26] MEDS: (Novolin R) Insulin Human Regular 100 units/ml vial SC SCH ×4 (12:23→22:30)
[2017-03-26] MEDS: Enoxaparin 30 mg Syringe SC SCH (13:27)
--- NOTE | 2017-03-26 16:58 | CP.PCM.PN ---
<Liban Cross - Last Filed: 03/26/17 16:56> Subjective - Date & Time of Evaluation Date of Evaluation: 03/26/17 Time of Evaluation: 10:32 - Subjective Subjective: Pt seen and examined. Pt less combative today. ROS unattainable due to pt's altered mental status. Objective - Vital Signs/Intake and Output Vital Signs (last 24 hours): Temp Pulse Resp BP Pulse Ox 97.9 F 69 20 175/68 H 95 03/26/17 08:00 03/26/17 08:00 03/26/17 08:00 03/26/17 08:00 03/26/17 08:00 Intake and Output: 03/26/17 03/26/17 06:59 18:59 Intake Total 580 Balance 580 - Medications Medications: Current Medications Amiodarone HCl (Cordarone) 200 mg PO DAILY [facility] Last Admin: 03/26/17 13:26 Dose: 200 mg Amlodipine Besylate (Norvasc) 10 mg PO DAILY [facility] Last Admin: 03/26/17 13:31 Dose: 10 mg Carbidopa/Levodopa (Sinemet) 1 tab PO TID [facility] Last Admin: 03/26/17 13:27 Dose: 1 tab Carvedilol (Coreg) 3.125 mg PO BID [facility] Clonidine HCl (Catapres-Tts2 0.2 Mg/24 Hr) 0.2 patch TD Q7D@1000 [facility] Last Admin: 03/25/17 15:21 Dose: 0.2 patch Diphenhydramine HCl (Benadryl) 12.5 mg PO Q6 PRN PRN Reason: Agitation Enalapril Maleate (Vasotec) 2.5 mg PO DAILY [facility] Enoxaparin Sodium (Lovenox) 30 mg SC DAILY [facility] Last Admin: 03/26/17 13:27 Dose: 30 mg Ferrous Sulfate (Feosol) 325 mg PO BID [facility] Last Admin: 03/26/17 13:27 Dose: 325 mg Haloperidol (Haldol) 1 mg PO Q6 PRN PRN Reason: Agitation Haloperidol Lactate (Haldol) 1 mg IM Q6 PRN PRN Reason: Agitation IF REFUSE PO Meropenem 500 mg/ Sodium (Chloride) 100 mls @ 100 mls/hr IVPB Q6H [facility] Last Admin: 05/20/17 12:24 Dose: 100 mls/hr Insulin Human Regular (Novolin R) 0 unit SC ACHS [facility] PRN Reason: Protocol Last Admin: 03/26/17 13:28 Dose: 2 unit Lorazepam (Ativan) 0.5 mg PO Q6 PRN PRN Reason: IRRITABILITY Last Admin: 03/26/17 01:58 Dose: 0.5 mg Pantoprazole Sodium (Protonix Inj) 40 mg IVP DAILY [facility] Last Admin: 03/26/17 13:26 Dose: 40 mg - Labs Labs: 03/25/17 12:08 03/25/17 12:08 - Constitutional Appears: Combative, Agitated - Head Exam Head Exam: ATRAUMATIC, NORMOCEPHALIC - Eye Exam Eye Exam: EOMI - ENT Exam ENT Exam: Mucous Membranes Moist - Respiratory Exam Respiratory Exam: Clear to Ausculation Bilateral. absent: Rales, Rhonchi, Wheezes - Cardiovascular Exam Cardiovascular Exam: +S1, +S2. absent: Gallop, Rubs - GI/Abdominal Exam GI & Abdominal Exam: Soft. absent: Distended, Rigid, Tenderness - Extremities Exam Extremities Exam: absent: Pedal Edema - Neurological Exam Neurological Exam: Altered, Awake - Psychiatric Exam Psychiatric exam: Agitated - Skin Skin Exam: Normal Color, Warm Assessment and Plan - Assessment and Plan (Free Text) Assessment: GI Bleed: Resolved FOBT positive 2 units of prbcs intially transfused on admission GI consult: Dr. Guidry, help appreciated NS @ 100cc/hr Protonix Drip discontinued as per GI As per GI, no overt bleed and no planned GI intervention at this time UTI Afebrile, nontachycardic Pt refused labs today UA: LE 3+, Nitrate negative, WBC 371, few bacteria, 3+ glucose ID, Dr. Jane, consulted. Help appreciated. Meropenem 500 mg IV q6h Urine cultures positive for ESBL Diabetes Mellitus: Pt refusing acchuchecks and insulin Accuchecks ACHS Insulin - low (npo) HTN BP 187/75 Pt refused po norvasc Clonidine 0.2 mg patch q7d CAD Hold home Lipitor Parkinson's Disease/Dementia: Restart sinemet 1 tab po tid Psych, Dr. Cortez, consulted. Help appreciated. Ativan 0.5 mg IV q6h prn for anxiety Benadryl 12.5 mg po q6h prn for agitation Haldol held Prophylactic Measures: VTE: SCDs GI: Protonix 40 mg po qd <Madhu Larsen - Last Filed: 05/01/17 13:17> Objective - Vital Signs/Intake and Output Vital Signs (last 24 hours): Temp Pulse Resp BP Pulse Ox 97.9 F 60 20 123/59 L 96 04/01/17 16:00 04/01/17 16:00 04/01/17 16:00 04/01/17 16:00 04/01/17 16:00 - Labs Labs: 04/01/17 06:50 04/01/17 06:50 Attending/Attestation - Attestation I have personally seen and examined this patient.: Yes I have fully participated in the care of the patient.: Yes I have reviewed all pertinent clinical information, including history, physical exam and plan: Yes Notes (Text): Patient seen and examined with the resident. Agree with the resident's evaluation, assessment and plan. Acute GI Bleed: UTI Diabetes Mellitus:
--- NOTE | 2017-03-26 17:13 | PN ---
DATE: 03/26/2017 SUBJECTIVE: The patient was noted to have runs of nonsustained ventricular tachycardia. EP consult has been requested and the patient was started on oral amiodarone. For some reason the patient was a ble to take his oral pills today and he is not spitting his pills as he did earlier. The patient is still uncooperative at times, he can spit, punch or kick. He is on 1:1 watch. PHYSICAL EXAMINATION: VITAL SIGNS: Blood pressure 175/68, heart rate 69, temperature 97.9, respirations 20. HEENT: Pale conjunctivae. CHEST: Clear. HEART: S1, S2 regular. EXTREMITIES: No edema. LABORATORIES: Yesterday's potassium and magnesium are within normal limit. ASSESSMENT: 1. Recurrent nonsustained ventricular tachycardia. 2. Cardiomyopathy, status post implantable cardioverter defibrillator biventricular pacemaker. 3. Dizziness and headache. 4. Hypertension. RECOMMENDATIONS: Continue current clonidine patch at 0.2 mg daily. Continue amiodarone 200 mg once a day. Start Coreg at 3.125 mg twice a day. Start enalapril 2.5 mg once a day. Awaiting the echoca rdiograph study. Continue Lovenox at 30 mg once a day. Grey Reese MD cc: [id number] TT: 03/26/2017 17:12:57 Confirmation # [id number] Dictation # [id number] walter
[2017-03-26] MEDS ORDERED: Bisacodyl 5mg EC Tab PO ONE (17:30)
[2017-03-27] MEDS: Meropenem 500 MG in Sodium Chloride 0.9% 100 ML IVPB SCH ×4 (04:25→21:58)
--- NOTE | 2017-03-27 07:05 | CP.PCM.CON ---
History of Present Illness - History of Present Illness History of Present Illness: 81 y/o male mosotho speaking for to have increased bp ans ams. He has a h/o VT low ef requiring ICD. Called for eval of ICD and chf reccomendations. In mosotho no cp sob nausea stomach pain dizziness Review of Systems - Review of Systems Systems not reviewed;Unavailable: Acuity of Condition - Constitutional Constitutional: absent: Headache - EENT Eyes: absent: Change in Vision Ears: absent: Ear Discharge Nose/Mouth/Throat: absent: Nasal Discharge - Cardiovascular Cardiovascular: Palpitations - Respiratory Respiratory: absent: Dyspnea on Exertion - Gastrointestinal Gastrointestinal: absent: Abdominal Pain - Genitourinary Genitourinary: Dysuria - Musculoskeletal Musculoskeletal: absent: Arthralgias - Integumentary Integumentary: absent: Bleeding Lesions - Neurological Neurological: absent: Abnormal Movements - Psychiatric Psychiatric: absent: Anxiety - Endocrine Endocrine: Fatigue Past Patient History - Past Medical History & Family History Past Medical History?: Yes - Past Social History Smoking Status: Never Smoked - PULMONARY Hx Asthma: Yes - NEUROLOGICAL Hx Parkinson's Disease: Yes - RENAL Hx Chronic Kidney Disease: Yes - ENDOCRINE/METABOLIC Hx Endocrine Disorders: Yes Hx Diabetes Mellitus Type 2: Yes - MUSCULOSKELETAL/RHEUMATOLOGICAL Hx Falls: Yes - SURGICAL HISTORY Hx Coronary Stent: Yes - ANESTHESIA Hx Anesthesia: Yes Hx Anesthesia Reactions: No Meds Home Medications: Home Medication List Medication Instructions Recorded Confirmed Type Amiodarone HCl 200 mg PO DAILY 100 Days 04/01/17 Rx Azithromycin [Zithromax] 250 mg PO DAILY 4 Days 04/01/17 Rx Carvedilol [Coreg] 6.25 mg PO BID tab 04/01/17 Rx Docusate [Colace] 100 mg PO TID cap 04/01/17 Rx Ferrous Sulfate [Feosol] 325 mg PO BID tab 04/01/17 Rx Finasteride [Proscar] 5 mg PO DAILY tab 04/01/17 Rx Insulin Human Regular [Novolin R] 0 unit SC ACHS unit 04/01/17 Rx Lisinopril [Zestril] 10 mg PO DAILY tab 04/01/17 Rx Nitrofurantoin Macrocrystals 100 mg PO Q12H 6 Days 04/01/17 Rx [Macrobid] Tamsulosin [Flomax] 0.4 mg PO DAILY cap 04/01/17 Rx amLODIPine [Norvasc] 10 mg PO DAILY tab 04/01/17 Rx cloNIDine 0.2 mg/24 hr 0.2 patch TD Q7D@1000 patch 04/01/17 Rx [catapres-TTS2 0.2 mg/24 hr] guaiFENesin [Robitussin] 200 mg PO Q4H PRN 04/01/17 Rx Allergies/Adverse Reactions: Allergies Allergy/AdvReac Type Severity Reaction Status Date / Time No Known Allergies Allergy Verified 10/25/15 12:58 - Medications Medications: Current Medications Amiodarone HCl (Cordarone) 200 mg PO DAILY [facility] Last Admin: 03/26/17 13:26 Dose: 200 mg Amlodipine Besylate (Norvasc) 10 mg PO DAILY [facility] Last Admin: 03/26/17 13:31 Dose: 10 mg Carbidopa/Levodopa (Sinemet) 1 tab PO TID [facility] Last Admin: 03/26/17 18:15 Dose: 1 tab Carvedilol (Coreg) 3.125 mg PO BID [facility] Last Admin: 03/26/17 18:15 Dose: 3.125 mg Clonidine HCl (Catapres-Tts2 0.2 Mg/24 Hr) 0.2 patch TD Q7D@1000 [facility] Last Admin: 03/25/17 15:21 Dose: 0.2 patch Diphenhydramine HCl (Benadryl) 12.5 mg PO Q6 PRN PRN Reason: Agitation Enalapril Maleate (Vasotec) 2.5 mg PO DAILY [facility] Last Admin: 03/26/17 16:57 Dose: 2.5 mg Enoxaparin Sodium (Lovenox) 30 mg SC DAILY [facility] Last Admin: 03/26/17 13:27 Dose: 30 mg Ferrous Sulfate (Feosol) 325 mg PO BID [facility] Last Admin: 03/26/17 18:11 Dose: 325 mg Haloperidol (Haldol) 1 mg PO Q6 PRN PRN Reason: Agitation Haloperidol Lactate (Haldol) 1 mg IM Q6 PRN PRN Reason: Agitation IF REFUSE PO Meropenem 500 mg/ Sodium (Chloride) 100 mls @ 100 mls/hr IVPB Q6H [facility] Last Admin: 03/27/17 04:25 Dose: 100 mls/hr Insulin Human Regular (Novolin R) 0 unit SC [facility] PRN Reason: Protocol Last Admin: 03/26/17 22:30 Dose: Not Given Lorazepam (Ativan) 0.5 mg PO Q6 PRN PRN Reason: IRRITABILITY Last Admin: 03/26/17 01:58 Dose: 0.5 mg Pantoprazole Sodium (Protonix Inj) 40 mg IVP DAILY [facility] Last Admin: 03/26/17 13:26 Dose: 40 mg Physical Exam - Constitutional Appears: Chronically Ill - Head Exam Head Exam: NORMOCEPHALIC - Eye Exam Eye Exam: Normal appearance - ENT Exam ENT Exam: Mucous Membranes Moist - Respiratory Exam Respiratory Exam: Rhonchi - Cardiovascular Exam Cardiovascular Exam: REGULAR RHYTHM - GI/Abdominal Exam GI & Abdominal Exam: Soft - Exam External exam: NORMAL EXTERNAL EXAM - Extremities Exam Extremities exam: Positive for: normal inspection - Neurological Exam Neurological exam: Alert - Psychiatric Exam Psychiatric exam: Agitated, Anxious Results - Vital Signs Recent Vital Signs: Last Vital Signs Temp 98.1 F 03/26/17 23:22 Pulse 74 03/26/17 23:22 Resp 20 03/26/17 23:22 BP 182/78 H 03/26/17 23:22 Pulse Ox 98 03/26/17 23:22 - Labs Result Diagrams: 04/01/17 06:50 04/01/17 06:50 Labs: Laboratory Results - last 24 hr 03/26/17 17:16 Troponin I < 0.0120 Assessment & Plan (1) Ventricular tachycardia seen on navigating officer Assessment and Plan: amiodorone for VT and will have ICD interrpgated continue chf/htn meds Status: Acute
--- NOTE | 2017-03-27 07:21 | CP.PCM.PN ---
<Fabian Girard - Last Filed: 03/27/17 07:04> Subjective - Date & Time of Evaluation Date of Evaluation: 03/27/17 Time of Evaluation: 06:30 - Subjective Subjective: Hospitalist Note- Dr. Larsen's service Pt seen and examined. He is resting calmly in bed. Per nursing, patient was mildly agitated over night. ROS unattainable due to pt's altered mental status. Objective - Vital Signs/Intake and Output Vital Signs (last 24 hours): Temp Pulse Resp BP Pulse Ox 98.1 F 74 20 182/78 H 98 03/26/17 23:22 03/26/17 23:22 03/26/17 23:22 03/26/17 23:22 03/26/17 23:22 Intake and Output: 03/27/17 03/27/17 06:59 18:59 Intake Total 300 Balance 300 - Medications Medications: Current Medications Amiodarone HCl (Cordarone) 200 mg PO DAILY [facility] Last Admin: 03/26/17 13:26 Dose: 200 mg Amlodipine Besylate (Norvasc) 10 mg PO DAILY [facility] Last Admin: 03/26/17 13:31 Dose: 10 mg Carbidopa/Levodopa (Sinemet) 1 tab PO TID [facility] Last Admin: 03/26/17 18:15 Dose: 1 tab Carvedilol (Coreg) 3.125 mg PO BID [facility] Last Admin: 03/26/17 18:15 Dose: 3.125 mg Clonidine HCl (Catapres-Tts2 0.2 Mg/24 Hr) 0.2 patch TD Q7D@1000 [facility] Last Admin: 03/25/17 15:21 Dose: 0.2 patch Diphenhydramine HCl (Benadryl) 12.5 mg PO Q6 PRN PRN Reason: Agitation Enalapril Maleate (Vasotec) 2.5 mg PO DAILY [facility] Last Admin: 03/26/17 16:57 Dose: 2.5 mg Enoxaparin Sodium (Lovenox) 30 mg SC DAILY [facility] Last Admin: 03/26/17 13:27 Dose: 30 mg Ferrous Sulfate (Feosol) 325 mg PO BID [facility] Last Admin: 03/26/17 18:11 Dose: 325 mg Haloperidol (Haldol) 1 mg PO Q6 PRN PRN Reason: Agitation Haloperidol Lactate (Haldol) 1 mg IM Q6 PRN PRN Reason: Agitation IF REFUSE PO Meropenem 500 mg/ Sodium (Chloride) 100 mls @ 100 mls/hr IVPB Q6H [facility] Last Admin: 03/27/17 04:25 Dose: 100 mls/hr Insulin Human Regular (Novolin R) 0 unit SC ACHS [facility] PRN Reason: Protocol Last Admin: 03/26/17 22:30 Dose: Not Given Lorazepam (Ativan) 0.5 mg PO Q6 PRN PRN Reason: IRRITABILITY Last Admin: 03/26/17 01:58 Dose: 0.5 mg Pantoprazole Sodium (Protonix Inj) 40 mg IVP DAILY [facility] Last Admin: 03/26/17 13:26 Dose: 40 mg - Labs Labs: 03/25/17 12:08 03/25/17 12:08 - Constitutional Appears: Non-toxic, No Acute Distress - Head Exam Head Exam: ATRAUMATIC, NORMOCEPHALIC - Eye Exam Eye Exam: Normal appearance - ENT Exam ENT Exam: Mucous Membranes Moist - Respiratory Exam Respiratory Exam: NORMAL BREATHING PATTERN. absent: Rales, Rhonchi, Wheezes - Cardiovascular Exam Cardiovascular Exam: REGULAR RHYTHM, +S1, +S2 - GI/Abdominal Exam GI & Abdominal Exam: Soft, Normal Bowel Sounds - Extremities Exam Extremities Exam: Normal Inspection - Neurological Exam Neurological Exam: Awake - Psychiatric Exam Psychiatric exam: Normal Affect, Normal Mood - Skin Skin Exam: Dry, Intact, Normal Color, Warm Assessment and Plan - Assessment and Plan (Free Text) Plan: GI Bleed: Resolved FOBT positive 2 units of prbcs intially transfused on admission GI consult: Dr. Guidry, help appreciated NS @ 100cc/hr Protonix Drip discontinued as per GI As per GI, no overt bleed and no planned GI intervention at this time UTI Afebrile, nontachycardic UA: LE 3+, Nitrate negative, WBC 371, few bacteria, 3+ glucose ID, Dr. Jane, consulted. Help appreciated. Meropenem 500 mg IV q6h Urine cultures positive for ESBL Diabetes Mellitus: Pt refusing acchuchecks and insulin Accuchecks ACHS Insulin - low (npo) HTN BP 182/78 Cont po norvasc Clonidine 0.2 mg patch q7d CAD Hold home Lipitor Parkinson's Disease/Dementia: Restart sinemet 1 tab po tid Psych, Dr. Cortez, consulted. Help appreciated. Ativan 0.5 mg IV q6h prn for anxiety Benadryl 12.5 mg po q6h prn for agitation Haldol held Prophylactic Measures: VTE: SCDs GI: Protonix 40 mg po qd <Madhu Larsen - Last Filed: 05/04/17 16:00> Objective - Vital Signs/Intake and Output Vital Signs (last 24 hours): Temp Pulse Resp BP Pulse Ox 97.9 F 60 20 123/59 L 96 04/01/17 16:00 04/01/17 16:00 04/01/17 16:00 04/01/17 16:00 04/01/17 16:00 - Labs Labs: 04/01/17 06:50 04/01/17 06:50 Attending/Attestation - Attestation I have personally seen and examined this patient.: Yes I have fully participated in the care of the patient.: Yes I have reviewed all pertinent clinical information, including history, physical exam and plan: Yes Notes (Text): Patient seen and examined with the resident. Agree with the resident's evaluation, assessment and plan. GI Bleed: Acute Anemia due to blood loss UTI Diabetes Mellitus: HTN Uncontrolled
[2017-03-27] MEDS: Enoxaparin 30 mg Syringe SC SCH (10:03)
[2017-03-27] MEDS: (Novolin R) Insulin Human Regular 100 units/ml vial SC SCH ×4 (10:09→21:43)
[2017-03-27 11:36] LABS: BASO % 0.5 % (0.0-2.0); EOS # 0.1 K/uL (0.0-0.7); EOS % 0.9 % (0.0-4.0); HEMATOCRIT 28.3 % (35.0-51.0); LYMPH % 15.7 % (20.0-40.0); MEAN CELL VOLUME 81.4 fL (80.0-94.0); MEAN CORPUSCULAR HEMOGLOBIN 26.8 pg (27.0-31.0); MEAN CORPUSCULAR HGB CONC 32.9 g/dL (33.0-37.0); MONO # 0.8 K/uL (0.0-0.8); MONO % 11.6 % (0.0-10.0); NRBC % 0.1 % (0.0-2.0); RED CELL DISTRIBUTION WIDTH 15.5 % (11.5-14.5); WHITE BLOOD COUNT 6.5 K/uL (4.8-10.8)
[2017-03-27 12:06] LABS: CHLORIDE 102 mmol/L (98-107)
[2017-03-27 12:07] LABS: POTASSIUM 3.8 mmol/L (3.6-5.2); SODIUM 137 mmol/L (132-148)
[2017-03-27 12:09] LABS: AST/SGOT 23 U/L (17-59); BILIRUBIN,TOTAL 1.6 mg/dL (0.2-1.3); BLOOD UREA NITROGEN 14 mg/dL (9-20); CARBON DIOXIDE 26 mmol/L (22-30); GFR AFRICAN-AMERICAN > 60; TOTAL PROTEIN 5.9 g/dL (6.3-8.3)
[2017-03-27 12:10] LABS: ALKALINE PHOSPHATASE 52 U/L (38-126); ALT/SGPT 18 U/L (21-72); GLUCOSE,RANDOM 220 mg/dL (75-110); PHOSPHOROUS 3.1 mg/dL (2.5-4.5)
[2017-03-27] MEDS: POLYETHYLENE GLYCOL 3350 17 GM/Dose PACKET PO SCH ×2 (13:11→17:56)
--- NOTE | 2017-03-27 15:13 | CP.PCM.PN ---
Subjective - Date & Time of Evaluation Date of Evaluation: 03/27/17 Time of Evaluation: 09:00 - Subjective Subjective: NO FEVER EVAL IN PROGRESS Objective - Vital Signs/Intake and Output Vital Signs (last 24 hours): Temp Pulse Resp BP Pulse Ox 98 F 70 20 170/60 H 98 03/27/17 13:00 03/27/17 13:00 03/27/17 13:00 03/27/17 13:00 03/27/17 13:00 Intake and Output: 03/27/17 03/27/17 06:59 18:59 Intake Total 300 Balance 300 - Medications Medications: Current Medications Amiodarone HCl (Cordarone) 200 mg PO DAILY [facility] Last Admin: 03/27/17 10:08 Dose: 200 mg Amlodipine Besylate (Norvasc) 10 mg PO DAILY [facility] Last Admin: 03/27/17 10:08 Dose: 10 mg Carbidopa/Levodopa (Sinemet) 1 tab PO TID [facility] Last Admin: 03/27/17 14:13 Dose: Not Given Carvedilol (Coreg) 3.125 mg PO BID [facility] Last Admin: 03/27/17 10:08 Dose: 3.125 mg Chlorthalidone (Hygroton) 25 mg PO DAILY [facility] Last Admin: 03/27/17 11:30 Dose: Not Given Clonidine HCl (Catapres-Tts2 0.2 Mg/24 Hr) 0.2 patch TD Q7D@1000 [facility] Last Admin: 03/25/17 15:21 Dose: 0.2 patch Diphenhydramine HCl (Benadryl) 12.5 mg PO Q6 PRN PRN Reason: Agitation Enoxaparin Sodium (Lovenox) 30 mg SC DAILY [facility] Last Admin: 03/27/17 10:03 Dose: 30 mg Ferrous Sulfate (Feosol) 325 mg PO BID [facility] Last Admin: 03/27/17 10:09 Dose: 325 mg Haloperidol (Haldol) 1 mg PO Q6 PRN PRN Reason: Agitation Haloperidol Lactate (Haldol) 1 mg IM Q6 PRN PRN Reason: Agitation IF REFUSE PO Meropenem 500 mg/ Sodium (Chloride) 100 mls @ 100 mls/hr IVPB Q6H [facility] Last Admin: 03/27/17 10:41 Dose: 100 mls/hr Insulin Human Regular (Novolin R) 0 unit SC [facility] PRN Reason: Protocol Last Admin: 03/27/17 14:13 Dose: Not Given Lisinopril (Zestril) 10 mg PO DAILY [facility] Last Admin: 03/27/17 11:30 Dose: Not Given Lorazepam (Ativan) 0.5 mg PO Q6 PRN PRN Reason: IRRITABILITY Last Admin: 03/26/17 01:58 Dose: 0.5 mg Pantoprazole Sodium (Protonix Inj) 40 mg IVP DAILY [facility] Last Admin: 03/27/17 10:09 Dose: 40 mg Polyethylene Glycol (Miralax) 17 gm PO BID [facility] Last Admin: 03/27/17 13:11 Dose: 17 gm - Labs Labs: 03/27/17 11:23 03/27/17 11:23 - Constitutional Appears: Non-toxic, Chronically Ill - Head Exam Head Exam: NORMOCEPHALIC - Eye Exam Eye Exam: PERRL. absent: Scleral icterus - ENT Exam ENT Exam: Mucous Membranes Dry - Neck Exam Neck Exam: absent: Lymphadenopathy - Respiratory Exam Respiratory Exam: Decreased Breath Sounds, Rhonchi - Cardiovascular Exam Cardiovascular Exam: REGULAR RHYTHM, +S1, +S2 - GI/Abdominal Exam GI & Abdominal Exam: Distended, Soft. absent: Tenderness Assessment and Plan (1) UTI (urinary tract infection) Status: Acute (2) Altered mental status Status: Acute - Assessment and Plan (Free Text) Assessment: CONT MERREM FOR NOW
--- NOTE | 2017-03-27 15:59 | PN ---
DATE: 03/27/2017 The patient was earlier not accepting to take his medication. Upon his visit by his daughter, he was able to take his pills and according to the daughter, the patient's status at home is very much like in the hospital, but he refuses to go to a halfway and that was conveyed to me by the medical r esident. No recurrence of ventricular tachycardia. PHYSICAL EXAMINATION: VITAL SIGNS: Blood pressure 170/60, heart rate 70, temperature 98, respirations 20. HEENT: Pale conjunctivae. CHEST: Clear. HEART: S1, S2 regular. EXTREMITIES: No edema. LABORATORIES: Hemoglobin and hematocrit today 9.3 and 28.3, white count and platelet count are withi n normal limit. Today's SMA-7 is within normal limits except for glucose of 220. One set of troponi n yesterday was negative. ASSESSMENT: 1. Recurrent nonsustained ventricular tachycardia. 2. Cardiomyopathy. 3. Dementia. 4. Parkinsonism 5. Uncontrolled diabetes mellitus. RECOMMENDATIONS: Continue amiodarone at 200 mg daily, clonidine patch 0.2 mg weekly. Increase Coreg to 6.25 mg twice a day. Continue p.r.n. Haldol. Continue Lovenox at 30 mg daily, Zestril at 10 mg once a day. Retirement anticoagulation for atrial fibrillation is not justified in this scenario. Grey Reese MD cc: [id number] TT: 03/27/2017 15:58:53 Confirmation # [id number] Dictation # [id number]
--- NOTE | 2017-03-27 23:54 | CP.PCM.PN ---
<Liban Cross - Last Filed: 03/27/17 23:58> Subjective - Date & Time of Evaluation Date of Evaluation: 03/27/17 Time of Evaluation: 08:04 - Subjective Subjective: Pt seen and examined. Pt clinically the same. Pt's daughter at bedside. Daughter reports that she respects her father's wishes to want to go back home upon discharge rather than to a prison. ROS unattainable due to pt's dementia. Objective - Vital Signs/Intake and Output Vital Signs (last 24 hours): Temp Pulse Resp BP Pulse Ox 98.2 F 62 20 167/69 H 100 03/27/17 16:41 03/27/17 16:53 03/27/17 16:41 03/27/17 16:41 03/27/17 16:53 Intake and Output: 03/27/17 03/28/17 18:59 06:59 Intake Total 580 Balance 580 - Medications Medications: Current Medications Amiodarone HCl (Cordarone) 200 mg PO DAILY [facility] Last Admin: 03/27/17 10:08 Dose: 200 mg Amlodipine Besylate (Norvasc) 10 mg PO DAILY [facility] Last Admin: 03/27/17 10:08 Dose: 10 mg Carbidopa/Levodopa (Sinemet) 1 tab PO TID [facility] Last Admin: 03/27/17 17:49 Dose: 1 tab Carvedilol (Coreg) 3.125 mg PO BID [facility] Last Admin: 03/27/17 17:50 Dose: 3.125 mg Chlorthalidone (Hygroton) 25 mg PO DAILY [facility] Last Admin: 03/27/17 11:30 Dose: Not Given Clonidine HCl (Catapres-Tts2 0.2 Mg/24 Hr) 0.2 patch TD Q7D@1000 [facility] Last Admin: 03/25/17 15:21 Dose: 0.2 patch Diphenhydramine HCl (Benadryl) 12.5 mg PO Q6 PRN PRN Reason: Agitation Enoxaparin Sodium (Lovenox) 30 mg SC DAILY [facility] Last Admin: 03/27/17 10:03 Dose: 30 mg Ferrous Sulfate (Feosol) 325 mg PO BID [facility] Last Admin: 03/27/17 17:50 Dose: 325 mg Haloperidol (Haldol) 1 mg PO Q6 PRN PRN Reason: Agitation Haloperidol Lactate (Haldol) 1 mg IM Q6 PRN PRN Reason: Agitation IF REFUSE PO Meropenem 500 mg/ Sodium (Chloride) 100 mls @ 100 mls/hr IVPB Q6H [facility] Last Admin: 03/27/17 21:58 Dose: 100 mls/hr Insulin Human Regular (Novolin R) 0 unit SC ACHS NEO PRN Reason: Protocol Last Admin: 03/27/17 21:43 Dose: Not Given Lisinopril (Zestril) 10 mg PO DAILY [facility] Last Admin: 03/27/17 11:30 Dose: Not Given Lorazepam (Ativan) 0.5 mg PO Q6 PRN PRN Reason: IRRITABILITY Last Admin: 03/26/17 01:58 Dose: 0.5 mg Pantoprazole Sodium (Protonix Inj) 40 mg IVP DAILY [facility] Last Admin: 03/27/17 10:09 Dose: 40 mg Polyethylene Glycol (Miralax) 17 gm PO BID [facility] Last Admin: 03/27/17 17:56 Dose: 17 gm - Labs Labs: 03/27/17 11:23 03/27/17 11:23 - Constitutional Appears: Confused - Head Exam Head Exam: ATRAUMATIC, NORMOCEPHALIC - Eye Exam Eye Exam: EOMI - ENT Exam ENT Exam: Mucous Membranes Moist. absent: Mucous Membranes Dry - Neck Exam Neck Exam: Full ROM - Respiratory Exam Respiratory Exam: Clear to Ausculation Bilateral. absent: Rales, Rhonchi, Wheezes - Cardiovascular Exam Cardiovascular Exam: +S1, +S2 - GI/Abdominal Exam GI & Abdominal Exam: Soft. absent: Tenderness - Extremities Exam Extremities Exam: Full ROM. absent: Pedal Edema - Neurological Exam Neurological Exam: Alert, Altered, Awake. absent: Oriented x3 - Psychiatric Exam Psychiatric exam: Agitated - Skin Skin Exam: Normal Color, Warm Assessment and Plan - Assessment and Plan (Free Text) Assessment: GI Bleed: Resolved FOBT positive 2 units of prbcs intially transfused on admission GI consult: Dr. Guidry, help appreciated NS @ 100cc/hr Protonix Drip discontinued as per GI As per GI, no overt bleed and no planned GI intervention at this time UTI Afebrile, nontachycardic Pt refused labs today UA: LE 3+, Nitrate negative, WBC 371, few bacteria, 3+ glucose ID, Dr. Jane, consulted. Help appreciated. Day 5 of 7 of Meropenem 500 mg IV q6h Pt will need 7 days of oral antibiotics upon discharge Urine cultures positive for ESBL Diabetes Mellitus: Pt refusing acchuchecks and insulin Accuchecks ACHS Insulin - low (npo) HTN BP 187/75 Pt refused po norvasc Clonidine 0.2 mg patch q7d CAD Hold home Lipitor Parkinson's Disease/Dementia: Restart sinemet 1 tab po tid Psych, Dr. Cortez, consulted. Help appreciated. Ativan 0.5 mg IV q6h prn for anxiety Benadryl 12.5 mg po q6h prn for agitation Haldol held Prophylactic Measures: VTE: SCDs GI: Protonix 40 mg po qd <Madhu Larsen - Last Filed: 05/06/17 16:59> Objective - Vital Signs/Intake and Output Vital Signs (last 24 hours): Temp Pulse Resp BP Pulse Ox 97.9 F 60 20 123/59 L 96 04/01/17 16:00 04/01/17 16:00 04/01/17 16:00 04/01/17 16:00 04/01/17 16:00 - Labs Labs: 04/01/17 06:50 04/01/17 06:50 Attending/Attestation - Attestation I have personally seen and examined this patient.: Yes I have fully participated in the care of the patient.: Yes I have reviewed all pertinent clinical information, including history, physical exam and plan: Yes Notes (Text): Patient seen and examined with the resident. Agree with the resident's evaluation, assessment and plan. GI Bleed: wiht Acute blood loss anemia. Resolved FOBT positive 2 units of prbcs initially transfused on admission GI consult: Dr. Guidry, help appreciated NS @ 100cc/hr Protonix Drip discontinued as per GI As per GI, no overt bleed and no planned GI intervention at this time UTI Urine cultures positive for ESBL Diabetes Mellitus: Pt refusing acchuchecks and insulin Accuchecks ACHS Insulin - low (npo)
[2017-03-28] MEDS: Meropenem 500 MG in Sodium Chloride 0.9% 100 ML IVPB SCH ×4 (03:40→21:30)
[2017-03-28 07:45] LABS: BASO % 0.4 % (0.0-2.0); EOS # 0.1 K/uL (0.0-0.7); EOS % 1.7 % (0.0-4.0); HEMATOCRIT 26.5 % (35.0-51.0); LYMPH % 22.3 % (20.0-40.0); MEAN CORPUSCULAR HEMOGLOBIN 27.4 pg (27.0-31.0); MEAN CORPUSCULAR HGB CONC 33.8 g/dL (33.0-37.0); MONO # 0.6 K/uL (0.0-0.8); NRBC % 0.1 % (0.0-2.0); RED CELL DISTRIBUTION WIDTH 14.7 % (11.5-14.5); WHITE BLOOD COUNT 4.5 K/uL (4.8-10.8)
[2017-03-28 07:53] LABS: CHLORIDE 102 mmol/L (98-107); POTASSIUM 3.6 mmol/L (3.6-5.2); SODIUM 137 mmol/L (132-148)
[2017-03-28 07:55] LABS: ALB/GLOB RATIO 1.1 (1.0-2.1); ALKALINE PHOSPHATASE 50 U/L (38-126); AST/SGOT 13 U/L (17-59); BILIRUBIN,TOTAL 1.6 mg/dL (0.2-1.3); BLOOD UREA NITROGEN 13 mg/dL (9-20); CARBON DIOXIDE 25 mmol/L (22-30); GFR AFRICAN-AMERICAN > 60; GLUCOSE,RANDOM 198 mg/dL (75-110); TOTAL PROTEIN 5.4 g/dL (6.3-8.3)
[2017-03-28 07:56] LABS: ALT/SGPT 16 U/L (21-72); CALCIUM 7.3 mg/dl (8.6-10.4)
[2017-03-28] MEDS: (Novolin R) Insulin Human Regular 100 units/ml vial SC SCH ×4 (08:28→22:00)
--- NOTE | 2017-03-28 08:41 | CARD ---
APPROVED REPORT EKG Measurement Heart [id number] <Conclusion> Normal sinus rhythm, bi V paceced Left anterior fascicular block Cannot rule out Anterior infarct, age undetermined Abnormal ECG
[2017-03-28] MEDS: POLYETHYLENE GLYCOL 3350 17 GM/Dose PACKET PO SCH ×2 (10:04→18:54)
[2017-03-28] MEDS: DiphenhydrAMINE 12.5 mg/5 ml LIQ UD (5 ml) PO PRN (10:05)
[2017-03-28] MEDS: Enoxaparin 30 mg Syringe SC SCH (10:13)
--- NOTE | 2017-03-28 10:23 | CP.PCM.PN ---
<Jamie Tovar - Last Filed: 03/28/17 18:07> Subjective - Date & Time of Evaluation Date of Evaluation: 03/28/17 Time of Evaluation: 08:05 - Subjective Subjective: Cardiology Progress Note Dr. Mcgee Patient seen and examined at the bedside. No acute distress. No ROS from pt 2/ 2 dementia/AMS. No acute issues overnight per nursing. The patient is resting comfortably in the bed at time of exam. Objective - Vital Signs/Intake and Output Vital Signs (last 24 hours): Temp Pulse Resp BP Pulse Ox 98 F 60 20 158/61 H 99 03/28/17 08:13 03/28/17 08:13 03/28/17 08:13 03/28/17 08:13 03/28/17 08:13 Intake and Output: 03/28/17 03/28/17 06:59 18:59 Intake Total 340 Balance 340 - Medications Medications: Current Medications Amiodarone HCl (Cordarone) 200 mg PO DAILY [facility] Last Admin: 03/28/17 10:05 Dose: 200 mg Amlodipine Besylate (Norvasc) 10 mg PO DAILY [facility] Last Admin: 03/28/17 10:05 Dose: 10 mg Carbidopa/Levodopa (Sinemet) 1 tab PO TID [facility] Last Admin: 03/28/17 10:05 Dose: 1 tab Carvedilol (Coreg) 3.125 mg PO BID [facility] Last Admin: 03/28/17 10:09 Dose: 3.125 mg Chlorthalidone (Hygroton) 25 mg PO DAILY [facility] Last Admin: 03/28/17 10:05 Dose: 25 mg Clonidine HCl (Catapres-Tts2 0.2 Mg/24 Hr) 0.2 patch TD Q7D@1000 [facility] Last Admin: 03/25/17 15:21 Dose: 0.2 patch Diphenhydramine HCl (Benadryl) 12.5 mg PO Q6 PRN PRN Reason: Agitation Last Admin: 03/28/17 10:05 Dose: 12.5 mg Enoxaparin Sodium (Lovenox) 30 mg SC DAILY [facility] Last Admin: 03/27/17 10:03 Dose: 30 mg Ferrous Sulfate (Feosol) 325 mg PO BID [facility] Last Admin: 03/28/17 10:05 Dose: 325 mg Haloperidol (Haldol) 1 mg PO Q6 PRN PRN Reason: Agitation Haloperidol Lactate (Haldol) 1 mg IM Q6 PRN PRN Reason: Agitation IF REFUSE PO Meropenem 500 mg/ Sodium (Chloride) 100 mls @ 100 mls/hr IVPB Q6H [facility] Last Admin: 03/28/17 10:04 Dose: 100 mls/hr Insulin Human Regular (Novolin R) 0 unit SC ACHS NEO PRN Reason: Protocol Lisinopril (Zestril) 10 mg PO DAILY [facility] Last Admin: 03/28/17 10:05 Dose: 10 mg Lorazepam (Ativan) 0.5 mg PO Q6 PRN PRN Reason: IRRITABILITY Last Admin: 03/26/17 01:58 Dose: 0.5 mg Pantoprazole Sodium (Protonix Inj) 40 mg IVP DAILY [facility] Last Admin: 03/27/17 10:09 Dose: 40 mg Polyethylene Glycol (Miralax) 17 gm PO BID [facility] Last Admin: 03/28/17 10:04 Dose: 17 gm - Labs Labs: 03/28/17 07:22 03/28/17 07:22 - Constitutional Appears: Non-toxic, No Acute Distress, Confused, Chronically Ill - Head Exam Head Exam: ATRAUMATIC, NORMAL INSPECTION, NORMOCEPHALIC - Eye Exam Eye Exam: EOMI, Normal appearance. absent: Conjunctival injection, Scleral icterus Pupil Exam: absent: Irregular, Unequal - ENT Exam ENT Exam: Mucous Membranes Moist - Neck Exam Neck Exam: absent: Lymphadenopathy, Thyromegaly - Respiratory Exam Respiratory Exam: Clear to Ausculation Bilateral, NORMAL BREATHING PATTERN. absent: Accessory Muscle Use, Decreased Breath Sounds, Rales, Rhonchi, Wheezes - Cardiovascular Exam Cardiovascular Exam: REGULAR RHYTHM, RRR, +S1, +S2. absent: Bradycardia, Tachycardia, Irregular Rhythm, +S4 - GI/Abdominal Exam GI & Abdominal Exam: Soft, Normal Bowel Sounds. absent: Distended, Firm, Rigid , Diminished Bowel Sounds, Hyperactive Bowel Sounds, Hypoactive Bowel Sounds - Extremities Exam Extremities Exam: absent: Calf Tenderness, Pedal Edema, Tenderness - Neurological Exam Neurological Exam: Alert, Awake. absent: Oriented x3 - Psychiatric Exam Additional comments: Dementia (baseline), disoriented - Skin Skin Exam: Dry, Intact, Normal Color, Warm Assessment and Plan (1) Ventricular tachycardia seen on gambling monitor Assessment & Plan: EKG 03/20/17: Significant artifacting, Left axis deviation, Right bundle branch block, Inferior infarct (age undetermined), Abnormal ECG EKG 03/25/17: Normal sinus rhythm, Bi-Ventricularly paced, Left anterior fascicular block, Cannot rule out Anterior infarct (age undetermined), Abnormal ECG Echo 10/18/14: LVEF 45-50%, LV systolic fxn mild-mod impaired, LV & LA mildly dilated, pacemaker lead in RV Trop x1 negative -23 beat run of VTach on telemetry -Remains hemodynamically stable -ICD interrogated, normal fxn -Last Echo in charting 10/18/14, repeat Echo ordered, pending -Continue to monitor, continue telemetry monitoring -Continue medical management: Amiodarone PO 200mg daily, Coreg 6.25mg PO BID Status: Acute (2) CAD (coronary artery disease) Assessment & Plan: EKG 03/20/17: Significant artifacting, Left axis deviation, Right bundle branch block, Inferior infarct (age undetermined), Abnormal ECG EKG 03/25/17: Normal sinus rhythm, Bi-Ventricularly paced, Left anterior fascicular block, Cannot rule out Anterior infarct (age undetermined), Abnormal ECG Echo 10/18/14: LVEF 45-50%, LV systolic fxn mild-mod impaired, LV & LA mildly dilated, pacemaker lead in RV Trop x1 negative -Hx CAD -Continue Coreg 6.25mg PO BID, Lisinopril 10mg PO daily, Norvasc 10mg PO daily -Consider adding statin and ASA/Plavix Status: Chronic (3) HTN (hypertension) Assessment & Plan: EKG 03/20/17: Significant artifacting, Left axis deviation, Right bundle branch block, Inferior infarct (age undetermined), Abnormal ECG EKG 03/25/17: Normal sinus rhythm, Bi-Ventricularly paced, Left anterior fascicular block, Cannot rule out Anterior infarct (age undetermined), Abnormal ECG Echo 10/18/14: LVEF 45-50%, LV systolic fxn mild-mod impaired, LV & LA mildly dilated, pacemaker lead in RV Trop x1 negative -intermittently elevated BP, SBP up to 220's this admission, typically around 160's-180's systolic -may be an anxiety/agitation component, patient also documented on several occasions to be refusing some tests and some meds -Continue to monitor -Continue medical management: Norvasc 10mg PO daily, Coreg 6.25mg PO BID, Lisinopril 10mg PO daily Status: Chronic - Assessment and Plan (Free Text) Assessment: Case discussed with Dr. Mcgee. <Jerrod Mcgee - Last Filed: 05/02/17 06:20> Objective - Vital Signs/Intake and Output Vital Signs (last 24 hours): Temp Pulse Resp BP Pulse Ox 97.9 F 60 20 123/59 L 96 04/01/17 16:00 04/01/17 16:00 04/01/17 16:00 04/01/17 16:00 04/01/17 16:00 - Labs Labs: 04/01/17 06:50 04/01/17 06:50 Attending/Attestation - Attestation I have personally seen and examined this patient.: Yes I have fully participated in the care of the patient.: Yes I have reviewed all pertinent clinical information, including history, physical exam and plan: Yes Notes (Text): 05/02/17 06:19 tolerating PO happier when spoken to in cambodian, no VT
--- NOTE | 2017-03-28 12:34 | CP.PCM.PN ---
<CostaKim garcia - Last Filed: 03/28/17 12:42> Subjective - Date & Time of Evaluation Date of Evaluation: 03/28/17 Time of Evaluation: 09:00 - Subjective Subjective: Medicine Note for Dr. Fabian, Patient was seen and examined at bedside. Patient responded appropriately to questions answered. Patient was being sent down for ECHO. Denied fever, chills, headache, chest pain, SOB, abdominal pain or urinary symptoms. Day 6/7 of Meropenem for + ESBL in Urine. Plan is for CON upon discharge. Objective - Vital Signs/Intake and Output Vital Signs (last 24 hours): Temp Pulse Resp BP Pulse Ox 98 F 60 20 158/61 H 99 03/28/17 08:13 03/28/17 08:13 03/28/17 08:13 03/28/17 08:13 03/28/17 08:13 Intake and Output: 03/28/17 03/28/17 06:59 18:59 Intake Total 340 Balance 340 - Medications Medications: Current Medications Amiodarone HCl (Cordarone) 200 mg PO DAILY [facility] Last Admin: 03/28/17 10:05 Dose: 200 mg Amlodipine Besylate (Norvasc) 10 mg PO DAILY [facility] Last Admin: 03/28/17 10:05 Dose: 10 mg Carbidopa/Levodopa (Sinemet) 1 tab PO TID [facility] Last Admin: 03/28/17 10:05 Dose: 1 tab Carvedilol (Coreg) 6.25 mg PO BID [facility] Clonidine HCl (Catapres-Tts2 0.2 Mg/24 Hr) 0.2 patch TD Q7D@1000 [facility] Last Admin: 03/25/17 15:21 Dose: 0.2 patch Diphenhydramine HCl (Benadryl) 12.5 mg PO Q6 PRN PRN Reason: Agitation Enoxaparin Sodium (Lovenox) 30 mg SC DAILY [facility] Last Admin: 03/28/17 10:13 Dose: 30 mg Ferrous Sulfate (Feosol) 325 mg PO BID [facility] Last Admin: 03/28/17 10:05 Dose: 325 mg Haloperidol (Haldol) 1 mg PO Q6 PRN PRN Reason: Agitation Haloperidol Lactate (Haldol) 1 mg IM Q6 PRN PRN Reason: Agitation IF REFUSE PO Meropenem 500 mg/ Sodium (Chloride) 100 mls @ 100 mls/hr IVPB Q6H [facility] Last Admin: 03/28/17 10:04 Dose: 100 mls/hr Insulin Human Regular (Novolin R) 0 unit SC ACHS [facility] PRN Reason: Protocol Lisinopril (Zestril) 10 mg PO DAILY [facility] Last Admin: 03/28/17 10:05 Dose: 10 mg Lorazepam (Ativan) 0.5 mg PO Q6 PRN PRN Reason: IRRITABILITY Last Admin: 03/26/17 01:58 Dose: 0.5 mg Pantoprazole Sodium (Protonix Inj) 40 mg IVP DAILY [facility] Last Admin: 03/28/17 10:16 Dose: 40 mg Polyethylene Glycol (Miralax) 17 gm PO BID [facility] Last Admin: 03/28/17 10:04 Dose: 17 gm - Labs Labs: 03/28/17 07:22 03/28/17 07:22 - Constitutional Appears: No Acute Distress - Head Exam Head Exam: NORMAL INSPECTION, NORMOCEPHALIC - Respiratory Exam Respiratory Exam: Clear to Ausculation Bilateral, NORMAL BREATHING PATTERN. absent: Wheezes - Cardiovascular Exam Cardiovascular Exam: REGULAR RHYTHM, RRR, +S1, +S2 - GI/Abdominal Exam GI & Abdominal Exam: Soft, Normal Bowel Sounds. absent: Distended, Tenderness - Extremities Exam Extremities Exam: Normal Inspection. absent: Pedal Edema, Tenderness - Neurological Exam Neurological Exam: Alert, Awake, Oriented x3 Assessment and Plan - Assessment and Plan (Free Text) Plan: UTI Afebrile, nontachycardic Pt refused labs today UA: LE 3+, Nitrate negative, WBC 371, few bacteria, 3+ glucose ID, Dr. Jane, consulted. Help appreciated. Urine cultures positive for ESBL Day 6 of 7 of Meropenem 500 mg IV q6h Pt will need 7 days of oral antibiotics upon discharge Recurrent UTI- Urology consulted- Dr. benitez appreciated GI Bleed- RESOLVED Monitor FOBT positive 2 units of prbcs initially transfused on admission Feosol 325mg PO BID GI consult: Dr. Guidry, help appreciated Protonix Drip discontinued as per GI As per GI, no overt bleed and no planned GI intervention at this time Diabetes Mellitus Accuchecks ACHS Insulin - medium HTN Monitor Amiodarone 200mg PO daily, Norvasc 10mg PO daily, Coreg increased to 6.25mg PO BID, clonidine 0.2mg Q7D patch, Lisinopril 10mg PO daily F/U ECHO CAD Hold home Lipitor Parkinson's Disease/Dementia: Restart sinemet 1 tab po tid Psych, Dr. Cortez, consulted. Help appreciated. Ativan 0.5 mg IV q6h prn for anxiety Benadryl 12.5 mg po q6h prn for agitation Haldol held Prophylactic Measures: VTE: SCDs, Lovenox 30mg SC daily GI: Protonix 40 mg po qd <Gregory Fabian M - Last Filed: 03/28/17 14:54> Objective - Vital Signs/Intake and Output Vital Signs (last 24 hours): Temp Pulse Resp BP Pulse Ox 98 F 60 20 158/61 H 99 03/28/17 08:13 03/28/17 08:13 03/28/17 08:13 03/28/17 08:13 03/28/17 08:13 Intake and Output: 03/28/17 03/28/17 06:59 18:59 Intake Total 340 Balance 340 - Medications Medications: Current Medications Amiodarone HCl (Cordarone) 200 mg PO DAILY [facility] Last Admin: 03/28/17 10:05 Dose: 200 mg Amlodipine Besylate (Norvasc) 10 mg PO DAILY [facility] Last Admin: 03/28/17 10:05 Dose: 10 mg Carbidopa/Levodopa (Sinemet) 1 tab PO TID [facility] Last Admin: 03/28/17 14:16 Dose: 1 tab Carvedilol (Coreg) 6.25 mg PO BID [facility] Clonidine HCl (Catapres-Tts2 0.2 Mg/24 Hr) 0.2 patch TD Q7D@1000 [facility] Last Admin: 03/25/17 15:21 Dose: 0.2 patch Diphenhydramine HCl (Benadryl) 12.5 mg PO Q6 PRN PRN Reason: Agitation Enoxaparin Sodium (Lovenox) 30 mg SC DAILY [facility] Last Admin: 03/28/17 10:13 Dose: 30 mg Ferrous Sulfate (Feosol) 325 mg PO BID [facility] Last Admin: 03/28/17 10:05 Dose: 325 mg Haloperidol (Haldol) 1 mg PO Q6 PRN PRN Reason: Agitation Haloperidol Lactate (Haldol) 1 mg IM Q6 PRN PRN Reason: Agitation IF REFUSE PO Meropenem 500 mg/ Sodium (Chloride) 100 mls @ 100 mls/hr IVPB Q6H [facility] Last Admin: 03/28/17 10:04 Dose: 100 mls/hr Insulin Human Regular (Novolin R) 0 unit SC ACHS NEO PRN Reason: Protocol Last Admin: 03/28/17 13:11 Dose: 4 unit Lisinopril (Zestril) 10 mg PO DAILY [facility] Last Admin: 03/28/17 10:05 Dose: 10 mg Lorazepam (Ativan) 0.5 mg PO Q6 PRN PRN Reason: IRRITABILITY Last Admin: 03/26/17 01:58 Dose: 0.5 mg Pantoprazole Sodium (Protonix Inj) 40 mg IVP DAILY [facility] Last Admin: 03/28/17 10:16 Dose: 40 mg Polyethylene Glycol (Miralax) 17 gm PO BID [facility] Last Admin: 03/28/17 10:04 Dose: 17 gm - Labs Labs: 03/28/17 07:22 03/28/17 07:22 Attending/Attestation - Attestation I have personally seen and examined this patient.: Yes I have fully participated in the care of the patient.: Yes I have reviewed all pertinent clinical information, including history, physical exam and plan: Yes Notes (Text): 03/28/17 14:54 Patient was seen and examined at bedside with the resident We'll continue antibiotics for ESBL UTI. Urology evaluation requested. Discharge plan to subacute rehabilitation center once antibiotic treatment is completed. I discussed the plan of care with the resident and agree with the above history and physical and assessment/plan by the resident
--- NOTE | 2017-03-28 15:44 | CP.PCM.CON ---
History of Present Illness - History of Present Illness History of Present Illness: Palliative consult Requested by Rui OLIVIA Reason: Goals of care discussion Patient is a 81 yo Hispanik male admitted from home with complaints of headache , dizziness and general body aches. Upon admission patient was diagnosed with UTI with E coli and treated with Merrem IV. Patient was also diagnosed with Delirium as per Psych eval with internal preoccupation and disorganization. PMH: DM, HTN, arthritis, CAD, PPM.,Parkinsons Soc. Hx: single, lives at home alone, is attended by the neighbor/friend Fam. Hx: unknown Review of Systems - EENT Eyes: absent: As Per HPI, Blind Spots, Blurred Vision, Change in Vision, Decreased Night Vision, Diplopia, Discharge, Dry Eye, Exophthalmos, Floaters, Irritation, Itchy Eyes, Loss of Peripheral Vision, Pain, Photophobia, Requires Corrective Lenses, Sees Flashes, Spots in Vision, Tunnel Vision, Other Visual Disturbances, Loss of Vision, Other Ears: absent: As Per HPI, Decreased Hearing, Ear Discharge, Ear Pain, Tinnitus, Abnormal Hearing, Disequilibrium, Dizziness, Other Nose/Mouth/Throat: absent: As Per HPI, Epistaxis, Nasal Congestion, Nasal Discharge, Nasal Obstruction, Nasal Trauma, Nose Pain, Post Nasal Drip, Sinus Pain, Sinus Pressure, Bleeding Gums, Change in Voice, Dental Pain, Dry Mouth, Dysphagia, Halitosis, Hoarsness, Lip Swelling, Mouth Lesions, Mouth Pain, Odynophagia, Sore Throat, Throat Swelling, Tongue Swelling, Facial Pain, Neck Pain, Neck Mass, Other - Cardiovascular Cardiovascular: absent: As Per HPI, Acrocyanosis, Chest Pain, Chest Pain at Rest , Chest Pain with Activity, Claudication, Diaphoresis, Dyspnea, Dyspnea on Exertion, Edema, Irregular Heart Rhythm, Pain Radiating to Arm/Neck/Jaw, Leg Edema, Leg Ulcers, Lightheadedness, Orthopnea, Palpitations, Paroxysmal Nocturnal Dyspnea, Pedal Edema, Radiating Pain, Rapid Heart Rate, Slow Heart Rate, Syncope, Other - Respiratory Respiratory: absent: As Per HPI, Cough, Dyspnea, Hemoptysis, Dyspnea on Exertion , Wheezing, Snoring, Stridor, Pain on Inspiration, Chest Congestion, Excessive Mucous Production, Change in Mucous Color, Pain with Coughing, Other - Gastrointestinal Gastrointestinal: Constipation Additional comments: Last BM on 03/23/2017 - Genitourinary Genitourinary: absent: As Per HPI, Change in Urinary Stream, Difficulty Urinating, Dysuria, Flank Pain, Hematuria, Pyuria, Nocturia, Urinary Incontinence, Urinary Frequency, Urinary Hesitance, Urinary Urgency, Voiding Freq/Small Amts, Freq UTI, Hx Renal/Bladder Calculi, Hx /Renal Surgery, Bladder Distension, Other - Reproductive: Male Reproductive:Male: As Per HPI, Prepubesant, Dyspareunia, Genital Lesions, Genital Pruritis, Pelvic Pain, Sexual Dysfunction, Penile Discharge, Genital Odor, Impotence, On ED Medications, Penile Implant, Other - Musculoskeletal Musculoskeletal: absent: As Per HPI, Abnormal Gait, Arthralgias, Atrophy, Back Pain, Deformity, Joint Swelling, Limited Range of Motion, Loss of Height, Muscle Cramps, Muscle Weakness, Myalgias, Neck Pain, Numbness, Radiating Pain into Limb, Stiffness, Tingling, Other - Integumentary Integumentary: absent: As Per HPI, Acne, Alopecia, Bleeding Lesions, Change in Hair, Change in Nails, Change in Pigmentation, Changing Lesions, Dry Skin, Erythema, Furuncle, Hirsutism, Lesions, New Lesions, Non-Healing Lesions, Photosensitivity, Pruritus, Rash, Skin Pain, Skin Ulcer, Sores, Striae, Swelling , Unusual Bruising, Wounds, Jaundice, Other - Neurological Additional comments: Tremor to upper extremities - Psychiatric Psychiatric: Anxiety - Endocrine Endocrine: absent: As Per HPI, Change in Body Appearance, Change in Libido, Cold Intolorance, Deepening of Voice, Excessive Sweating, Fatigue, Flushing, Heat Intolorance, Increase in Ring/Shoe/Hat Size, Palpitations, Polydipsia, Polyphagia, Polyuria, Other - Hematologic/Lymphatic Hematologic: absent: As Per HPI, Easy Bleeding, Easy Bruising, Lymphadenopathy, Other Past Patient History - Past Medical History & Family History Past Medical History?: Yes - Past Social History Smoking Status: Never Smoked - PULMONARY Hx Asthma: Yes - NEUROLOGICAL Hx Parkinson's Disease: Yes - RENAL Hx Chronic Kidney Disease: Yes - ENDOCRINE/METABOLIC Hx Diabetes Mellitus Type 2: Yes - MUSCULOSKELETAL/RHEUMATOLOGICAL Hx Falls: Yes - SURGICAL HISTORY Hx Coronary Stent: Yes - ANESTHESIA Hx Anesthesia: Yes Hx Anesthesia Reactions: No Meds Allergies/Adverse Reactions: Allergies Allergy/AdvReac Type Severity Reaction Status Date / Time No Known Allergies Allergy Verified 10/25/15 12:58 - Medications Medications: Current Medications Amiodarone HCl (Cordarone) 200 mg PO DAILY [facility] Last Admin: 03/28/17 10:05 Dose: 200 mg Amlodipine Besylate (Norvasc) 10 mg PO DAILY [facility] Last Admin: 03/28/17 10:05 Dose: 10 mg Carbidopa/Levodopa (Sinemet) 1 tab PO TID [facility] Last Admin: 03/28/17 14:16 Dose: 1 tab Carvedilol (Coreg) 6.25 mg PO BID [facility] Clonidine HCl (Catapres-Tts2 0.2 Mg/24 Hr) 0.2 patch TD Q7D@1000 [facility] Last Admin: 03/25/17 15:21 Dose: 0.2 patch Diphenhydramine HCl (Benadryl) 12.5 mg PO Q6 PRN PRN Reason: Agitation Enoxaparin Sodium (Lovenox) 30 mg SC DAILY [facility] Last Admin: 03/28/17 10:13 Dose: 30 mg Ferrous Sulfate (Feosol) 325 mg PO BID [facility] Last Admin: 03/28/17 10:05 Dose: 325 mg Haloperidol (Haldol) 1 mg PO Q6 PRN PRN Reason: Agitation Haloperidol Lactate (Haldol) 1 mg IM Q6 PRN PRN Reason: Agitation IF REFUSE PO Meropenem 500 mg/ Sodium (Chloride) 100 mls @ 100 mls/hr IVPB Q6H [facility] Last Admin: 03/28/17 10:04 Dose: 100 mls/hr Insulin Human Regular (Novolin R) 0 unit SC [facility] PRN Reason: Protocol Last Admin: 03/28/17 13:11 Dose: 4 unit Lisinopril (Zestril) 10 mg PO DAILY [facility] Last Admin: 03/28/17 10:05 Dose: 10 mg Lorazepam (Ativan) 0.5 mg PO Q6 PRN PRN Reason: IRRITABILITY Last Admin: 03/26/17 01:58 Dose: 0.5 mg Pantoprazole Sodium (Protonix Inj) 40 mg IVP DAILY [facility] Last Admin: 03/28/17 10:16 Dose: 40 mg Polyethylene Glycol (Miralax) 17 gm PO BID [facility] Last Admin: 03/28/17 10:04 Dose: 17 gm Physical Exam - Constitutional Appears: No Acute Distress - Head Exam Head Exam: ATRAUMATIC, NORMAL INSPECTION, NORMOCEPHALIC - Eye Exam Eye Exam: EOMI, Normal appearance, PERRL Pupil Exam: NORMAL ACCOMODATION - ENT Exam ENT Exam: Mucous Membranes Moist, Normal Exam - Neck Exam Neck exam: Positive for: Normal Inspection - Respiratory Exam Respiratory Exam: Clear to Auscultation Bilateral, NORMAL BREATHING PATTERN - GI/Abdominal Exam GI & Abdominal Exam: Distended, Hypoactive Bowel Sounds - Rectal Exam Rectal Exam: Deferred - Exam Exam: NORMAL INSPECTION - Extremities Exam Extremities exam: Positive for: normal inspection - Back Exam Back exam: NORMAL INSPECTION - Neurological Exam Neurological exam: Alert, Altered - Psychiatric Exam Psychiatric exam: Agitated - Skin Skin Exam: Normal Color Results - Vital Signs Recent Vital Signs: Last Vital Signs Temp 98 F 03/28/17 08:13 Pulse 60 03/28/17 08:13 Resp 20 03/28/17 08:13 BP 158/61 H 03/28/17 08:13 Pulse Ox 99 03/28/17 08:13 - Labs Result Diagrams: 03/28/17 07:22 03/28/17 07:22 Labs: Laboratory Results - last 24 hr 03/24/17 03/25/17 03/25/17 11:39 07:28 11:59 WBC RBC Hgb Hct MCV MCH MCHC RDW Plt Count MPV Neut % (Auto) Lymph % (Auto) [place] % (Auto) Eos % (Auto) Baso % (Auto) Neut # Lymph # [place] # Eos # Baso # Sodium Potassium Chloride Carbon Dioxide Anion Gap BUN Creatinine Est GFR ( Amer) Est GFR (Non-Af Amer) POC Glucose (mg/dL) 237 H 202 H 293 H Random Glucose Calcium Phosphorus Magnesium Total Bilirubin AST ALT Alkaline Phosphatase Total Protein Albumin Globulin Albumin/Globulin Ratio 03/25/17 03/25/17 03/26/17 17:03 21:26 06:32 WBC RBC Hgb Hct MCV MCH MCHC RDW Plt Count MPV Neut % (Auto) Lymph % (Auto) [place] % (Auto) Eos % (Auto) Baso % (Auto) Neut # Lymph # [place] # Eos # Baso # Sodium Potassium Chloride Carbon Dioxide Anion Gap BUN Creatinine Est GFR ( Amer) Est GFR (Non-Af Amer) POC Glucose (mg/dL) 188 H 241 H 222 H Random Glucose Calcium Phosphorus Magnesium Total Bilirubin AST ALT Alkaline Phosphatase Total Protein Albumin Globulin Albumin/Globulin Ratio 03/26/17 03/26/17 03/26/17 11:47 16:38 21:52 WBC RBC Hgb Hct MCV MCH MCHC RDW Plt Count MPV Neut % (Auto) Lymph % (Auto) [place] % (Auto) Eos % (Auto) Baso % (Auto) Neut # Lymph # [place] # Eos # Baso # Sodium Potassium Chloride Carbon Dioxide Anion Gap BUN Creatinine Est GFR ( Amer) Est GFR (Non-Af Amer) POC Glucose (mg/dL) 243 H 286 H 227 H Random Glucose Calcium Phosphorus Magnesium Total Bilirubin AST ALT Alkaline Phosphatase Total Protein Albumin Globulin Albumin/Globulin Ratio 03/27/17 03/27/17 03/27/17 06:59 13:29 16:00 WBC RBC Hgb Hct MCV MCH MCHC RDW Plt Count MPV Neut % (Auto) Lymph % (Auto) [place] % (Auto) Eos % (Auto) Baso % (Auto) Neut # Lymph # [place] # Eos # Baso # Sodium Potassium Chloride Carbon Dioxide Anion Gap BUN Creatinine Est GFR ( Amer) Est GFR (Non-Af Amer) POC Glucose (mg/dL) 203 H 262 H 304 H Random Glucose Calcium Phosphorus Magnesium Total Bilirubin AST ALT Alkaline Phosphatase Total Protein Albumin Globulin Albumin/Globulin Ratio 03/27/17 03/28/17 03/28/17 21:31 05:50 07:22 WBC 4.5 L RBC 3.27 L Hgb 8.9 L Hct 26.5 L MCV 81.0 MCH 27.4 MCHC 33.8 RDW 14.7 H Plt Count 278 MPV 8.0 Neut % (Auto) 62.6 Lymph % (Auto) 22.3 [place] % (Auto) 13.0 H Eos % (Auto) 1.7 Baso % (Auto) 0.4 Neut # 2.8 Lymph # 1.0 [place] # 0.6 Eos # 0.1 Baso # 0.0 Sodium Potassium Chloride Carbon Dioxide Anion Gap BUN Creatinine Est GFR ( Amer) Est GFR (Non-Af Amer) POC Glucose (mg/dL) 331 H 228 H Random Glucose Calcium Phosphorus Magnesium Total Bilirubin AST ALT Alkaline Phosphatase Total Protein Albumin Globulin Albumin/Globulin Ratio 03/28/17 03/28/17 07:22 12:27 WBC RBC Hgb Hct MCV MCH MCHC RDW Plt Count MPV Neut % (Auto) Lymph % (Auto) [place] % (Auto) Eos % (Auto) Baso % (Auto) Neut # Lymph # [place] # Eos # Baso # Sodium 137 Potassium 3.6 Chloride 102 Carbon Dioxide 25 Anion Gap 13 BUN 13 Creatinine 1.0 Est GFR ( Amer) > 60 Est GFR (Non-Af Amer) > 60 POC Glucose (mg/dL) 277 H Random Glucose 198 H Calcium 7.3 L Phosphorus 3.0 Magnesium 2.0 Total Bilirubin 1.6 H AST 13 L D ALT 16 L Alkaline Phosphatase 50 Total Protein 5.4 L Albumin 2.8 L Globulin 2.6 Albumin/Globulin Ratio 1.1 Assessment & Plan - Assessment and Plan (Free Text) Assessment: Palliative consult Code status: Full Code, no advance directive on chart, PPS 30% I reviewed medical records, all diagnostic studies, examined and interviewed patient in the bed and had a phone conversation with patient's daughter Silvana. Translation provided by the PCP at bed side. Patient is very poor historian and interview was very limited. Patient is alert, agitated with involuntary tremor of left hand. Haldol PRN on board. Patient is 1:1 safety watch. Patient speaks Sami only. Skin is pale looking. latest Hb 8.9. VS within normal limits. Patient complains of abdominal distention and constipation since last . Miralax BID on board. Doctor Chaparrita called for the Fleet enema order. I attempted calling patient's daughter Silvana over the phone X 2. Finally she called back and we agreed to meettomorrow at 10 am for further goals of care discussion. Impression * This is an elderly man with acute onset of dizziness and weakness * Patient is slightly confused and restless in bed * UTI, on Iv antibiotics * Constipation X 4 days, on Miralax BID * Patient's wishes for the end of life care are not documented * As per reports patient prefers to return back home as opposed to CON Suggestion * Would give Fleet enema X 1 * Continue 1: 1 safety watch * Discharge home would not be a safe discharge if patient lives home alone * Family meeting tomorrow at 10 am to discharge goals of care with daughter Silvana Thank you very much for consulting Palliative care
--- NOTE | 2017-03-28 18:41 | PN ---
DATE: 03/28/2017 SUBJECTIVE: The patient denies any chest pain . PHYSICAL EXAMINATION: VITAL SIGNS: Blood pressure 162/61, heart rate 61, temperature 98.1, respirations 20. HEENT: Pale conjunctivae. CHEST: Clear. HEART: S1, S2 regular. EXTREMITIES: No edema. LABORATORIES: Today's SMA-7 is within normal limits except for glucose of 198. Calcium is below nor mal at 7.3. Today's hemoglobin and hematocrit 8.9 and 26.5, white count and platelet count 4.5 and 2 78. The patient was evaluated by psychiatrist yesterday. IMPRESSION: The patient is slightly confused and restless in bed and recommendations to continue one -to-one safety watch and discharged home would not be safe if he lives alone. A family meeting is sc heduled for 10:00 a.m. tomorrow. ASSESSMENT: 1. Cardiomyopathy. 2. Recurrent nonsustained ventricular tachycardia. 3. . 4. Status post biventricular pacemaker ICD. 5. Hypertension. 6. Urinary tract infection. 7. Parkinsonism. 8. Anemia. RECOMMENDATIONS: Continue current clonidine patch. Continue amiodarone 200 mg daily, Coreg 6.25 mg twice a day, IV meropenem at 500 mg intravenous q. 6 hours, Norvasc 10 mg once a day, Sinemet 1 table t twice a day, Zestril at 10 mg once a day. I will follow the echocardiographic study performed meliton burciaga Grey Reese MD cc: [id number] TT: 03/28/2017 18:40:51 Confirmation # [id number] Dictation # [id number]
[2017-03-29] MEDS: Meropenem 500 MG in Sodium Chloride 0.9% 100 ML IVPB SCH ×4 (03:30→22:31)
[2017-03-29 07:48] LABS: BASO % 0.4 % (0.0-2.0); EOS # 0.1 K/uL (0.0-0.7); EOS % 1.5 % (0.0-4.0); HEMATOCRIT 27.2 % (35.0-51.0); LYMPH % 25.3 % (20.0-40.0); MEAN CELL VOLUME 80.1 fL (80.0-94.0); MEAN CORPUSCULAR HEMOGLOBIN 27.6 pg (27.0-31.0); MEAN CORPUSCULAR HGB CONC 34.4 g/dL (33.0-37.0); MEAN PLATELET VOLUME 7.7 fL (7.2-11.7); MONO # 0.6 K/uL (0.0-0.8); MONO % 15.6 % (0.0-10.0); NRBC % 0.1 % (0.0-2.0); RED CELL DISTRIBUTION WIDTH 14.8 % (11.5-14.5); WHITE BLOOD COUNT 3.9 K/uL (4.8-10.8)
[2017-03-29 08:02] LABS: CHLORIDE 98 mmol/L (98-107)
[2017-03-29 08:03] LABS: POTASSIUM 3.8 mmol/L (3.6-5.2); SODIUM 134 mmol/L (132-148)
[2017-03-29 08:05] LABS: ALKALINE PHOSPHATASE 56 U/L (38-126); AST/SGOT 16 U/L (17-59); BILIRUBIN,TOTAL 1.4 mg/dL (0.2-1.3); BLOOD UREA NITROGEN 13 mg/dL (9-20); CARBON DIOXIDE 28 mmol/L (22-30); GFR AFRICAN-AMERICAN > 60; GLUCOSE,RANDOM 200 mg/dL (75-110); TOTAL PROTEIN 5.7 g/dL (6.3-8.3)
[2017-03-29 08:06] LABS: ALT/SGPT 18 U/L (21-72); MAGNESIUM 2.1 mg/dL (1.6-2.3); PHOSPHOROUS 2.8 mg/dL (2.5-4.5)
[2017-03-29] MEDS: (Novolin R) Insulin Human Regular 100 units/ml vial SC SCH ×5 (08:32→22:32)
--- NOTE | 2017-03-29 10:17 | CP.PCM.PN ---
<Aminata Valdes - Last Filed: 03/29/17 16:49> Subjective - Date & Time of Evaluation Date of Evaluation: 03/29/17 Time of Evaluation: 09:30 - Subjective Subjective: Cardiology Progress Note- Dr. Mcgee Patient seen and examined at bedside this AM. Patient is lying in bed comfortably in safety room. He is alert and oriented to self, place and time this AM. Patient is pleasant and answering questions appropriately. Denies chest pain or palpitations this AM. Patient states he is to be discharged today from hospital, which he is happy about since he would like to get more exercise after being in bed for so many days. 12 point ROS was negative for acute complaints. No issues reported overnight. Objective - Vital Signs/Intake and Output Vital Signs (last 24 hours): Temp Pulse Resp BP Pulse Ox 97.6 F 60 20 165/66 H 100 03/29/17 07:00 03/29/17 07:00 03/29/17 07:00 03/29/17 07:00 03/29/17 07:00 - Medications Medications: Current Medications Amiodarone HCl (Cordarone) 200 mg PO DAILY [facility] Last Admin: 03/28/17 10:05 Dose: 200 mg Amlodipine Besylate (Norvasc) 10 mg PO DAILY [facility] Last Admin: 03/28/17 10:05 Dose: 10 mg Carbidopa/Levodopa (Sinemet) 1 tab PO TID [facility] Last Admin: 03/28/17 18:51 Dose: 1 tab Carvedilol (Coreg) 6.25 mg PO BID [facility] Last Admin: 03/28/17 18:52 Dose: 6.25 mg Clonidine HCl (Catapres-Tts2 0.2 Mg/24 Hr) 0.2 patch TD Q7D@1000 [facility] Last Admin: 03/25/17 15:21 Dose: 0.2 patch Diphenhydramine HCl (Benadryl) 12.5 mg PO Q6 PRN PRN Reason: Agitation Enoxaparin Sodium (Lovenox) 30 mg SC DAILY [facility] Last Admin: 03/28/17 10:13 Dose: 30 mg Ferrous Sulfate (Feosol) 325 mg PO BID [facility] Last Admin: 03/28/17 18:52 Dose: 325 mg Haloperidol (Haldol) 1 mg PO Q6 PRN PRN Reason: Agitation Haloperidol Lactate (Haldol) 1 mg IM Q6 PRN PRN Reason: Agitation IF REFUSE PO Meropenem 500 mg/ Sodium (Chloride) 100 mls @ 100 mls/hr IVPB Q6H [facility] Last Admin: 03/29/17 03:30 Dose: 100 mls/hr Insulin Human Regular (Novolin R) 0 unit SC [facility] PRN Reason: Protocol Last Admin: 03/29/17 08:34 Dose: Not Given Lisinopril (Zestril) 10 mg PO DAILY [facility] Last Admin: 03/28/17 10:05 Dose: 10 mg Lorazepam (Ativan) 0.5 mg PO Q6 PRN PRN Reason: IRRITABILITY Last Admin: 03/28/17 21:20 Dose: 0.5 mg Pantoprazole Sodium (Protonix Inj) 40 mg IVP DAILY [facility] Last Admin: 03/28/17 10:16 Dose: 40 mg Polyethylene Glycol (Miralax) 17 gm PO BID [facility] Last Admin: 03/28/17 18:54 Dose: 17 gm - Labs Labs: 03/29/17 07:38 03/29/17 07:38 - Constitutional Appears: No Acute Distress - Head Exam Head Exam: NORMAL INSPECTION, NORMOCEPHALIC - Eye Exam Eye Exam: EOMI, Normal appearance - ENT Exam ENT Exam: Mucous Membranes Moist - Neck Exam Neck Exam: Normal Inspection - Respiratory Exam Respiratory Exam: Clear to Ausculation Bilateral, NORMAL BREATHING PATTERN - Cardiovascular Exam Cardiovascular Exam: REGULAR RHYTHM, +S1, +S2 - GI/Abdominal Exam GI & Abdominal Exam: Soft. absent: Distended, Tenderness - Extremities Exam Extremities Exam: Full ROM, Normal Inspection. absent: Pedal Edema, Tenderness - Neurological Exam Neurological Exam: Alert, Awake, Oriented x3 - Psychiatric Exam Psychiatric exam: Flat Affect, Normal Mood - Skin Skin Exam: Normal Color, Warm Assessment and Plan - Assessment and Plan (Free Text) Assessment: (1) Ventricular tachycardia seen on ekg monitor Assessment & Plan: -Patient with 23 beat run of VTach on telemetry -Remains hemodynamically stable -ICD interrogated 03/28/17- normal function -F/U repeat Echo ordered- done and pending official read. -Continue to monitor, continue telemetry monitoring -Continue medical management: * Amiodarone PO 200mg daily * Coreg 6.25mg PO BID (increased yesterday from 3.125 PO BID) * Trop x1 negative EKG 03/20/17: Significant artifacting, Left axis deviation, Right bundle branch block, Inferior infarct (age undetermined), Abnormal ECG EKG 03/25/17: Normal sinus rhythm, Bi-Ventricularly paced, Left anterior fascicular block, Cannot rule out Anterior infarct (age undetermined), Abnormal ECG Echo 10/18/14: LVEF 45-50%, LV systolic fxn mild-mod impaired, LV & LA mildly dilated, pacemaker lead in RV Status: Acute (2) HTN (hypertension) Assessment & Plan: -Intermittently elevated BP, SBP up to 220's this admission, typically around 160's-180's systolic. 165/66 this AM. -Continue to monitor -Continue medical management: * Norvasc 10mg PO daily * Coreg 6.25mg PO BID (increased yesterday from 3.125 PO BID) * Lisinopril 10mg PO daily * Clonidine Patch Status: Chronic (3) CAD (coronary artery disease) Assessment & Plan: -Hx CAD - Trop x1 negative -Continue medical management: * Norvasc 10mg PO daily * Coreg 6.25mg PO BID (increased yesterday from 3.125 PO BID) * Lisinopril 10mg PO daily * Hold Plavix/ASA for recent GI bleed * Hold statin for recent admission for rhabdomyolysis EKG 03/20/17: Significant artifacting, Left axis deviation, Right bundle branch block, Inferior infarct (age undetermined), Abnormal ECG EKG 03/25/17: Normal sinus rhythm, Bi-Ventricularly paced, Left anterior fascicular block, Cannot rule out Anterior infarct (age undetermined), Abnormal ECG Echo 10/18/14: LVEF 45-50%, LV systolic fxn mild-mod impaired, LV & LA mildly dilated, pacemaker lead in RV Status: Chronic Seen and discussed with Dr. Mcgee. <Jerrod Mcgee - Last Filed: 05/02/17 06:19> Objective - Vital Signs/Intake and Output Vital Signs (last 24 hours): Temp Pulse Resp BP Pulse Ox 97.9 F 60 20 123/59 L 96 04/01/17 16:00 04/01/17 16:00 04/01/17 16:00 04/01/17 16:00 04/01/17 16:00 - Labs Labs: 04/01/17 06:50 04/01/17 06:50 Attending/Attestation - Attestation I have personally seen and examined this patient.: Yes I have fully participated in the care of the patient.: Yes I have reviewed all pertinent clinical information, including history, physical exam and plan: Yes Notes (Text): 05/02/17 06:18 CON tx in progress no VT
[2017-03-29] MEDS: Enoxaparin 30 mg Syringe SC SCH (10:44)
[2017-03-29] MEDS: POLYETHYLENE GLYCOL 3350 17 GM/Dose PACKET PO SCH ×2 (10:44→17:34)
--- NOTE | 2017-03-29 10:56 | CP.PCM.PN ---
Subjective - Date & Time of Evaluation Date of Evaluation: 03/29/17 Time of Evaluation: 10:50 - Subjective Subjective: 81 year old confused male with hx of multiple utis latest Proteus esbl pt has multiple med problems including parkinsons A Risistant UTI Suggest continue antibiotic treatment, get ct scan to ro Stone or hydro, Emperically start pt on flomax and proscar. Hosay Objective - Vital Signs/Intake and Output Vital Signs (last 24 hours): Temp Pulse Resp BP Pulse Ox 97.6 F 60 20 165/66 H 100 03/29/17 07:00 03/29/17 07:00 03/29/17 07:00 03/29/17 07:00 03/29/17 07:00 - Medications Medications: Current Medications Amiodarone HCl (Cordarone) 200 mg PO DAILY [facility] Last Admin: 03/29/17 10:43 Dose: 200 mg Amlodipine Besylate (Norvasc) 10 mg PO DAILY [facility] Last Admin: 03/28/17 10:05 Dose: 10 mg Carbidopa/Levodopa (Sinemet) 1 tab PO TID [facility] Last Admin: 03/29/17 10:43 Dose: 1 tab Carvedilol (Coreg) 6.25 mg PO BID [facility] Last Admin: 03/29/17 10:43 Dose: 6.25 mg Clonidine HCl (Catapres-Tts2 0.2 Mg/24 Hr) 0.2 patch TD Q7D@1000 [facility] Last Admin: 03/25/17 15:21 Dose: 0.2 patch Diphenhydramine HCl (Benadryl) 12.5 mg PO Q6 PRN PRN Reason: Agitation Enoxaparin Sodium (Lovenox) 30 mg SC DAILY [facility] Last Admin: 03/29/17 10:44 Dose: Not Given Ferrous Sulfate (Feosol) 325 mg PO BID [facility] Last Admin: 03/29/17 10:43 Dose: 325 mg Haloperidol (Haldol) 1 mg PO Q6 PRN PRN Reason: Agitation Haloperidol Lactate (Haldol) 1 mg IM Q6 PRN PRN Reason: Agitation IF REFUSE PO Meropenem 500 mg/ Sodium (Chloride) 100 mls @ 100 mls/hr IVPB Q6H [facility] Last Admin: 03/29/17 03:30 Dose: 100 mls/hr Insulin Human Regular (Novolin R) 0 unit SC ACHS [facility] PRN Reason: Protocol Last Admin: 03/29/17 08:34 Dose: Not Given Lisinopril (Zestril) 10 mg PO DAILY [facility] Last Admin: 03/28/17 10:05 Dose: 10 mg Lorazepam (Ativan) 0.5 mg PO Q6 PRN PRN Reason: IRRITABILITY Last Admin: 03/28/17 21:20 Dose: 0.5 mg Pantoprazole Sodium (Protonix Inj) 40 mg IVP DAILY [facility] Last Admin: 03/29/17 10:43 Dose: 40 mg Polyethylene Glycol (Miralax) 17 gm PO BID [facility] Last Admin: 03/29/17 10:44 Dose: 17 gm - Labs Labs: 03/29/17 07:38 03/29/17 07:38
--- NOTE | 2017-03-29 11:01 | CARD ---
APPROVED REPORT EXAM: Two-dimensional and M-mode echocardiogram with Doppler and color Doppler. Other Information Quality : GoodRhythm : INDICATION CAD Congestive Heart Failure Surgery/Intervention Pacemaker: RISK FACTORS Hypertension Hyperlipidemia Diabetes M-Mode DIMENSIONS RVDd1.57 (2.1-3.2cm)Left Atrium (MM)4.29 (2.5-4.0cm) IVSd1.24 (0.7-1.1cm)Aortic Root3.50 (2.2-3.7cm) LVDd6.35 (4.0-5.6cm)Aortic Cusp Exc.2.18 (1.5-2.0cm) PWd1.20 (0.7-1.1cm)FS (%) 18 % LVDs5.23 (2.0-3.8cm)LVEF (%)36 (>50%) Aortic Valve AI P 1/2 [id number] Mitral Valve MV E Pzvvfdie15.8cm/sMV A Uddlpczn88.7cm/sE/A ratio0.6 TDI E/Lateral E'0.0E/Medial E'0.0 Tricuspid Valve TR Peak Jikpxyck210qq/sTR Peak Gr.[id number] LEFT VENTRICLE The Left Ventricle is moderately dilated. There is mild concentric left ventricular hypertrophy. The Ejection Fraction visually appears 40-45%. Transmitral Doppler flow pattern is Grade I-abnormal relaxation pattern. The left atrial pressure is mildly elevated. moderately increased la volume index. RIGHT VENTRICLE The right ventricle is normal size. The right ventricular systolic function is normal. There is a pacemaker lead in the right ventricle. ATRIA The left atrium is mildly dilated. The right atrium size is normal. The interatrial septum is intact with no evidence for an atrial septal defect. AORTIC VALVE The aortic valve is normal in structure. There is mild to moderate aortic regurgitation. MITRAL VALVE The mitral valve is thickened but opens well. Mitral regurgitation is mild. TRICUSPID VALVE The tricuspid valve is normal in structure. There is mild tricuspid regurgitation. Right ventricular systolic pressure is estimated at 45 mmHg. There is mild-moderate pulmonary hypertension. PULMONIC VALVE The pulmonary valve is normal in structure. GREAT VESSELS The aortic root is normal size. The aortic root displays mild sclerocalcific changes of the aortic root. ivc is mildly dilated with poor insp.collapse.elevated ra pressures. PERICARDIAL EFFUSION There is no pericardial effusion. <Conclusion> The Left Ventricle is moderately dilated. There is mild concentric left ventricular hypertrophy. The Ejection Fraction visually appears 40-45%. Transmitral Doppler flow pattern is Grade I-abnormal relaxation pattern. The left atrial pressure is mildly elevated. moderately increased la volume index. There is a pacemaker lead in the right ventricle. The left atrium is mildly dilated. There is mild to moderate aortic regurgitation. Mitral regurgitation is mild. There is mild tricuspid regurgitation. Right ventricular systolic pressure is estimated at 45 mmHg. There is mild-moderate pulmonary hypertension. ivc is mildly dilated with poor insp.collapse.elevated ra pressures.
[2017-03-29] MEDS ORDERED: Magnesium Citrate Oral SOL (300 ml) PO ONE ×2 (11:04→12:15)
--- NOTE | 2017-03-29 12:05 | CP.PCM.PN ---
Subjective - Date & Time of Evaluation Date of Evaluation: 03/29/17 Time of Evaluation: 12:02 - Subjective Subjective: Patient remains in no acute distress, on IV antibiotics for UTI. Family meeting held with daughters Silvana and Gretchen at bed side. Objective - Vital Signs/Intake and Output Vital Signs (last 24 hours): Temp Pulse Resp BP Pulse Ox 97.6 F 60 20 165/66 H 100 03/29/17 07:00 03/29/17 07:00 03/29/17 07:00 03/29/17 07:00 03/29/17 07:00 - Medications Medications: Current Medications Amiodarone HCl (Cordarone) 200 mg PO DAILY [facility] Last Admin: 03/29/17 10:43 Dose: 200 mg Amlodipine Besylate (Norvasc) 10 mg PO DAILY [facility] Last Admin: 03/29/17 10:50 Dose: 10 mg Carbidopa/Levodopa (Sinemet) 1 tab PO TID [facility] Last Admin: 03/29/17 10:43 Dose: 1 tab Carvedilol (Coreg) 6.25 mg PO BID [facility] Last Admin: 03/29/17 10:43 Dose: 6.25 mg Clonidine HCl (Catapres-Tts2 0.2 Mg/24 Hr) 0.2 patch TD Q7D@1000 [facility] Last Admin: 03/25/17 15:21 Dose: 0.2 patch Diphenhydramine HCl (Benadryl) 12.5 mg PO Q6 PRN PRN Reason: Agitation Enoxaparin Sodium (Lovenox) 30 mg SC DAILY [facility] Last Admin: 03/29/17 10:44 Dose: Not Given Ferrous Sulfate (Feosol) 325 mg PO BID [facility] Last Admin: 03/29/17 10:43 Dose: 325 mg Finasteride (Proscar) 5 mg PO DAILY [facility] Haloperidol (Haldol) 1 mg PO Q6 PRN PRN Reason: Agitation Haloperidol Lactate (Haldol) 1 mg IM Q6 PRN PRN Reason: Agitation IF REFUSE PO Meropenem 500 mg/ Sodium (Chloride) 100 mls @ 100 mls/hr IVPB Q6H [facility] Last Admin: 03/29/17 10:51 Dose: 100 mls/hr Insulin Human Regular (Novolin R) 0 unit SC [facility] PRN Reason: Protocol Last Admin: 03/29/17 08:34 Dose: Not Given Lisinopril (Zestril) 10 mg PO DAILY [facility] Last Admin: 03/29/17 10:50 Dose: 10 mg Lorazepam (Ativan) 0.5 mg PO Q6 PRN PRN Reason: IRRITABILITY Last Admin: 03/28/17 21:20 Dose: 0.5 mg Pantoprazole Sodium (Protonix Inj) 40 mg IVP DAILY [facility] Last Admin: 03/29/17 10:43 Dose: 40 mg Polyethylene Glycol (Miralax) 17 gm PO BID [facility] Last Admin: 03/29/17 10:44 Dose: 17 gm Tamsulosin HCl (Flomax) 0.4 mg PO DAILY [facility] - Labs Labs: 03/29/17 07:38 03/29/17 07:38 - Constitutional Appears: Chronically Ill - Head Exam Head Exam: ATRAUMATIC, NORMAL INSPECTION, NORMOCEPHALIC - Eye Exam Eye Exam: EOMI, Normal appearance, PERRL Pupil Exam: NORMAL ACCOMODATION, PERRL - ENT Exam ENT Exam: Mucous Membranes Moist, Normal Exam - Neck Exam Neck Exam: Full ROM - Respiratory Exam Respiratory Exam: Decreased Breath Sounds, NORMAL BREATHING PATTERN - Cardiovascular Exam Cardiovascular Exam: REGULAR RHYTHM, +S1, +S2 - GI/Abdominal Exam GI & Abdominal Exam: Distended, Diminished Bowel Sounds - Rectal Exam Rectal Exam: Deferred - Extremities Exam Extremities Exam: Full ROM, Normal Capillary Refill, Normal Inspection - Back Exam Back Exam: NORMAL INSPECTION - Neurological Exam Neurological Exam: Alert, Altered Neuro motor strength exam: Left Upper Extremity: 2/1, Right Upper Extremity: 2/1 , Left Lower Extremity: 2/1, Right Lower Extremity: 2/1 - Psychiatric Exam Psychiatric exam: Flat Affect - Skin Skin Exam: Pallor Assessment and Plan - Assessment and Plan (Free Text) Assessment: Family meeting for goals of care discussion attended by two patient's daughters. Translation provided by the floor nurse as none of the daughters speaks Indonesian. Both daughters seemed to have very poor insight of the patient' s diagnosis. The symptoms of UTI and need for IV antibiotics discussed with the daughters. It was also explained that patient may have to continue the IV Tx at [facility]. They agreed. Further we discussed the risk of patient being discharged home where he lives alone. I suggested that NH detention placement would be appropriate for the patient due to his weakness , altered mental status and Parkinson's disease. The daughters were very uneasy making that decision as they wanted to respect patient's wishes for going home. When the patient approached with the same question he was very categoric against the NH terminal make up operator placement. Code status discussed. Family and patient advocate for Full Code. Impression * Patient is a chronically ill man diagnosed with paranoa and delirium, and treated for the UTI * In my judgment patient has no ability to make prudent decisions * The daughters lack insight of the possible risks involved if patient left home alone * The daughters tend to fallow patient's wishes regarding placement Suggestion * Would discharge to [facility] for completion of Tx * SS to assist family with available resource for home care * Full Code
--- NOTE | 2017-03-29 12:22 | CP.PCM.PN ---
<CostaKim garcia - Last Filed: 03/29/17 12:19> Subjective - Date & Time of Evaluation Date of Evaluation: 03/29/17 Time of Evaluation: 10:00 - Subjective Subjective: Medicine Note for Dr. Fabian, Patient was seen and examined at bedside. Patient responded appropriately to questions answered. Denied fever, chills, headache, chest pain, SOB, abdominal pain or urinary symptoms. Day 7 of Meropenem for + ESBL in Urine. Plan is for CON upon discharge. Objective - Vital Signs/Intake and Output Vital Signs (last 24 hours): Temp Pulse Resp BP Pulse Ox 97.6 F 60 20 165/66 H 100 03/29/17 07:00 03/29/17 07:00 03/29/17 07:00 03/29/17 07:00 03/29/17 07:00 - Medications Medications: Current Medications Amiodarone HCl (Cordarone) 200 mg PO DAILY [facility] Last Admin: 03/29/17 10:43 Dose: 200 mg Amlodipine Besylate (Norvasc) 10 mg PO DAILY [facility] Last Admin: 03/29/17 10:50 Dose: 10 mg Carbidopa/Levodopa (Sinemet) 1 tab PO TID [facility] Last Admin: 03/29/17 10:43 Dose: 1 tab Carvedilol (Coreg) 6.25 mg PO BID [facility] Last Admin: 03/29/17 10:43 Dose: 6.25 mg Clonidine HCl (Catapres-Tts2 0.2 Mg/24 Hr) 0.2 patch TD Q7D@1000 [facility] Last Admin: 03/25/17 15:21 Dose: 0.2 patch Diphenhydramine HCl (Benadryl) 12.5 mg PO Q6 PRN PRN Reason: Agitation Enoxaparin Sodium (Lovenox) 30 mg SC DAILY [facility] Last Admin: 03/29/17 10:44 Dose: Not Given Ferrous Sulfate (Feosol) 325 mg PO BID [facility] Last Admin: 03/29/17 10:43 Dose: 325 mg Finasteride (Proscar) 5 mg PO DAILY [facility] Haloperidol (Haldol) 1 mg PO Q6 PRN PRN Reason: Agitation Haloperidol Lactate (Haldol) 1 mg IM Q6 PRN PRN Reason: Agitation IF REFUSE PO Meropenem 500 mg/ Sodium (Chloride) 100 mls @ 100 mls/hr IVPB Q6H [facility] Last Admin: 03/29/17 10:51 Dose: 100 mls/hr Insulin Human Regular (Novolin R) 0 unit SC [facility] PRN Reason: Protocol Last Admin: 03/29/17 08:34 Dose: Not Given Lisinopril (Zestril) 10 mg PO DAILY [facility] Last Admin: 03/29/17 10:50 Dose: 10 mg Lorazepam (Ativan) 0.5 mg PO Q6 PRN PRN Reason: IRRITABILITY Last Admin: 03/28/17 21:20 Dose: 0.5 mg Pantoprazole Sodium (Protonix Inj) 40 mg IVP DAILY [facility] Last Admin: 03/29/17 10:43 Dose: 40 mg Polyethylene Glycol (Miralax) 17 gm PO BID [facility] Last Admin: 03/29/17 10:44 Dose: 17 gm Tamsulosin HCl (Flomax) 0.4 mg PO DAILY [facility] - Labs Labs: 03/29/17 07:38 03/29/17 07:38 - Constitutional Appears: No Acute Distress - Head Exam Head Exam: NORMAL INSPECTION, NORMOCEPHALIC - Eye Exam Eye Exam: Normal appearance - ENT Exam ENT Exam: Mucous Membranes Moist - Respiratory Exam Respiratory Exam: Clear to Ausculation Bilateral, NORMAL BREATHING PATTERN - Cardiovascular Exam Cardiovascular Exam: REGULAR RHYTHM, RRR, +S1, +S2 - GI/Abdominal Exam GI & Abdominal Exam: Soft, Normal Bowel Sounds. absent: Distended, Tenderness - Extremities Exam Extremities Exam: Normal Inspection. absent: Pedal Edema, Tenderness - Neurological Exam Neurological Exam: Alert, Awake - Skin Skin Exam: Dry, Intact, Normal Color, Warm Assessment and Plan - Assessment and Plan (Free Text) Plan: UTI Afebrile, nontachycardic Pt refused labs today UA: LE 3+, Nitrate negative, WBC 371, few bacteria, 3+ glucose ID, Dr. Jane, consulted. Help appreciated. Urine cultures positive for ESBL Day 7 of 7 of Meropenem 500 mg IV q6h Pt will need 7 days of oral antibiotics upon discharge- as per Dr. Jane, Nitrofurantoin PO BID x 14 days Recurrent UTI- Urology consulted- - help appreciated - CT scan abdomen and pelvis to evaulate for hydronephrosis, started Flomax and Proscar. Constipation Mag citrate and Miralax GI Bleed- RESOLVED Monitor FOBT positive 2 units of prbcs initially transfused on admission Feosol 325mg PO BID GI consult: Dr. Guidry, help appreciated Protonix Drip discontinued as per GI As per GI, no overt bleed and no planned GI intervention at this time Diabetes Mellitus Accuchecks ACHS Insulin - medium HTN Monitor Amiodarone 200mg PO daily, Norvasc 10mg PO daily, Coreg increased to 6.25mg PO BID, clonidine 0.2mg Q7D patch, Lisinopril 10mg PO daily ECHO- EF 40-45%, mild LVH, mild to moderate pulm HTN (please see full report) CAD Hold home Lipitor Parkinson's Disease/Dementia: Restart sinemet 1 tab po tid Psych, Dr. Cortez, consulted. Help appreciated. Ativan 0.5 mg IV q6h prn for anxiety Benadryl 12.5 mg po q6h prn for agitation Haldol held Prophylactic Measures: VTE: SCDs, Lovenox 30mg SC daily GI: Protonix 40 mg po qd DW Chaparrita Sampson DO, PGY-1 <Gregory Fabian - Last Filed: 03/29/17 17:02> Objective - Vital Signs/Intake and Output Vital Signs (last 24 hours): Temp Pulse Resp BP Pulse Ox 97.6 F 60 20 165/66 H 100 03/29/17 07:00 03/29/17 07:00 03/29/17 07:00 03/29/17 07:00 03/29/17 07:00 - Medications Medications: Current Medications Amiodarone HCl (Cordarone) 200 mg PO DAILY [facility] Last Admin: 03/29/17 10:43 Dose: 200 mg Amlodipine Besylate (Norvasc) 10 mg PO DAILY [facility] Last Admin: 03/29/17 10:50 Dose: 10 mg Carbidopa/Levodopa (Sinemet) 1 tab PO TID [facility] Last Admin: 03/29/17 13:13 Dose: 1 tab Carvedilol (Coreg) 6.25 mg PO BID [facility] Last Admin: 03/29/17 10:43 Dose: 6.25 mg Clonidine HCl (Catapres-Tts2 0.2 Mg/24 Hr) 0.2 patch TD Q7D@1000 [facility] Last Admin: 03/25/17 15:21 Dose: 0.2 patch Diphenhydramine HCl (Benadryl) 12.5 mg PO Q6 PRN PRN Reason: Agitation Enoxaparin Sodium (Lovenox) 30 mg SC DAILY [facility] Last Admin: 03/29/17 10:44 Dose: Not Given Ferrous Sulfate (Feosol) 325 mg PO BID [facility] Last Admin: 03/29/17 10:43 Dose: 325 mg Finasteride (Proscar) 5 mg PO DAILY [facility] Last Admin: 03/29/17 12:38 Dose: 5 mg Haloperidol (Haldol) 1 mg PO Q6 PRN PRN Reason: Agitation Haloperidol Lactate (Haldol) 1 mg IM Q6 PRN PRN Reason: Agitation IF REFUSE PO Meropenem 500 mg/ Sodium (Chloride) 100 mls @ 100 mls/hr IVPB Q6H [facility] Last Admin: 03/29/17 10:51 Dose: 100 mls/hr Insulin Human Regular (Novolin R) 0 unit SC ACHS [facility] PRN Reason: Protocol Last Admin: 03/29/17 12:39 Dose: 8 unit Lisinopril (Zestril) 10 mg PO DAILY [facility] Last Admin: 03/29/17 10:50 Dose: 10 mg Lorazepam (Ativan) 0.5 mg PO Q6 PRN PRN Reason: IRRITABILITY Last Admin: 03/28/17 21:20 Dose: 0.5 mg Pantoprazole Sodium (Protonix Inj) 40 mg IVP DAILY [facility] Last Admin: 03/29/17 10:43 Dose: 40 mg Polyethylene Glycol (Miralax) 17 gm PO BID [facility] Last Admin: 03/29/17 10:44 Dose: 17 gm Tamsulosin HCl (Flomax) 0.4 mg PO DAILY [facility] Last Admin: 03/29/17 12:39 Dose: 0.4 mg - Labs Labs: 03/29/17 07:38 03/29/17 07:38 Attending/Attestation - Attestation I have personally seen and examined this patient.: Yes I have fully participated in the care of the patient.: Yes I have reviewed all pertinent clinical information, including history, physical exam and plan: Yes Notes (Text): 03/29/17 17:02 Patient was seen and examined at bedside with the resident Mental status has improved Patient to is on IV antibiotics for ESBL UTI Urology evaluation seen and appreciated. Follow up CT scan of the abdomen and pelvis Discharge planning to subacute rehabilitation center I discussed the plan of care with the resident and agree with the above history and physical and assessment/plan by the resident.
--- NOTE | 2017-03-29 12:29 | CP.PCM.PN ---
Subjective - Date & Time of Evaluation Date of Evaluation: 03/29/17 Time of Evaluation: 10:00 - Subjective Subjective: seen/examined rx in progress Objective - Vital Signs/Intake and Output Vital Signs (last 24 hours): Temp Pulse Resp BP Pulse Ox 97.6 F 60 20 165/66 H 100 03/29/17 07:00 03/29/17 07:00 03/29/17 07:00 03/29/17 07:00 03/29/17 07:00 - Medications Medications: Current Medications Amiodarone HCl (Cordarone) 200 mg PO DAILY [facility] Last Admin: 03/29/17 10:43 Dose: 200 mg Amlodipine Besylate (Norvasc) 10 mg PO DAILY [facility] Last Admin: 03/29/17 10:50 Dose: 10 mg Carbidopa/Levodopa (Sinemet) 1 tab PO TID [facility] Last Admin: 03/29/17 10:43 Dose: 1 tab Carvedilol (Coreg) 6.25 mg PO BID [facility] Last Admin: 03/29/17 10:43 Dose: 6.25 mg Clonidine HCl (Catapres-Tts2 0.2 Mg/24 Hr) 0.2 patch TD Q7D@1000 [facility] Last Admin: 03/25/17 15:21 Dose: 0.2 patch Diphenhydramine HCl (Benadryl) 12.5 mg PO Q6 PRN PRN Reason: Agitation Enoxaparin Sodium (Lovenox) 30 mg SC DAILY [facility] Last Admin: 03/29/17 10:44 Dose: Not Given Ferrous Sulfate (Feosol) 325 mg PO BID [facility] Last Admin: 03/29/17 10:43 Dose: 325 mg Finasteride (Proscar) 5 mg PO DAILY [facility] Haloperidol (Haldol) 1 mg PO Q6 PRN PRN Reason: Agitation Haloperidol Lactate (Haldol) 1 mg IM Q6 PRN PRN Reason: Agitation IF REFUSE PO Meropenem 500 mg/ Sodium (Chloride) 100 mls @ 100 mls/hr IVPB Q6H [facility] Last Admin: 03/29/17 10:51 Dose: 100 mls/hr Insulin Human Regular (Novolin R) 0 unit SC ACHS [facility] PRN Reason: Protocol Last Admin: 03/29/17 08:34 Dose: Not Given Lisinopril (Zestril) 10 mg PO DAILY [facility] Last Admin: 03/29/17 10:50 Dose: 10 mg Lorazepam (Ativan) 0.5 mg PO Q6 PRN PRN Reason: IRRITABILITY Last Admin: 03/28/17 21:20 Dose: 0.5 mg Pantoprazole Sodium (Protonix Inj) 40 mg IVP DAILY [facility] Last Admin: 03/29/17 10:43 Dose: 40 mg Polyethylene Glycol (Miralax) 17 gm PO BID [facility] Last Admin: 03/29/17 10:44 Dose: 17 gm Tamsulosin HCl (Flomax) 0.4 mg PO DAILY [facility] - Labs Labs: 03/29/17 07:38 03/29/17 07:38 Assessment and Plan (1) UTI (urinary tract infection) Status: Acute (2) Altered mental status Status: Acute
--- NOTE | 2017-03-29 12:57 | PN ---
DATE: 03/29/2017 The patient is being fed by his daughter at the bedside. He is comfortable and cooperative. 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 The daughter did not know. There was no reporte d ventricular tachycardia. PHYSICAL EXAMINATION: VITAL SIGNS: Blood pressure 165/66, heart rate 60, temperature 97.6, respiration 20. HEENT: Normocephalic. NECK: No JVD. CHEST: Minimal rhonchi. HEART: S1, S2 regular. EXTREMITIES: No edema. LABORATORIES: Hemoglobin and hematocrit are 9.4 and 27.2, white count and platelet count are 3.9 and 267. Today's SMA-7 is within normal limits except for glucose of 200, calcium is 8.0. Official echocardiographic study report revealed ejection fraction in the range of 40-45%. Mild to m oderate pulmonary hypertension. ASSESSMENT: 1. Mildly depressed ejection fraction. 2. Nonsustained ventricular tachycardia status post implantable cardioverter-defibrillator placement . 3. Dementia. 4. Parkinsonism. 5. Urinary tract infection, extended-spectrum beta-lactamase. RECOMMENDATIONS: Continue clonidine patch 0.2 mg weekly, Coreg 6.25 mg twice a day, amiodarone 200 m g once a day, p.r.n. Haldol, subcutaneous Lovenox at 30 mg once a day, meropenem at 500 mg intravenou s q. 6 hours, Norvasc at 10 mg once a day, Zestril at 10 mg once a day. Grey Reese MD cc: [id number] TT: 03/29/2017 12:56:35 Confirmation # [id number] Dictation # [id number] mn
--- NOTE | 2017-03-29 13:38 | CT ---
PROCEDURE: CT Abdomen and Pelvis without intravenous contrast HISTORY: r/o hydronephrosis COMPARISON: Two thousand fifteen. TECHNIQUE: Technique. Contrast Dose: Radiation dose: Total exam DLP = 1046 mGy-cm. This CT exam was performed using one or more of the following dose reduction techniques: Automated exposure control, adjustment of the mA and/or kV according to patient size, and/or use of iterative reconstruction technique. FINDINGS: LOWER THORAX: Bibasilar pleural plaques are noted/pleural thickening. Small hiatal hernia. LIVER: Unremarkable. No gross lesion or ductal dilatation. GALLBLADDER AND BILE DUCTS: Unremarkable. PANCREAS: Unremarkable. No gross lesion or ductal dilatation. SPLEEN: Unremarkable. ADRENALS: Unremarkable. No mass. KIDNEYS AND URETERS: Unremarkable. No hydronephrosis. No solid mass. VASCULATURE: Unremarkable. No aortic aneurysm. BOWEL: Unremarkable. No obstruction. No gross mural thickening. APPENDIX: Unremarkable. Normal appendix. PERITONEUM: Unremarkable. No free fluid. No free air. LYMPH NODES: Unremarkable. No enlarged lymph nodes. BLADDER: Unremarkable. REPRODUCTIVE: Unremarkable. BONES: No acute fracture. OTHER FINDINGS: None. IMPRESSION: No evidence of hydronephrosis.
[2017-03-30] MEDS: Meropenem 500 MG in Sodium Chloride 0.9% 100 ML IVPB SCH ×4 (04:23→23:07)
[2017-03-30 08:03] LABS: BASO % 0.1 % (0.0-2.0); EOS # 0.1 K/uL (0.0-0.7); EOS % 2.5 % (0.0-4.0); HEMATOCRIT 26.7 % (35.0-51.0); LYMPH % 27.2 % (20.0-40.0); MEAN CELL VOLUME 79.5 fL (80.0-94.0); MEAN CORPUSCULAR HEMOGLOBIN 27.4 pg (27.0-31.0); MEAN CORPUSCULAR HGB CONC 34.5 g/dL (33.0-37.0); MEAN PLATELET VOLUME 7.8 fL (7.2-11.7); MONO # 0.7 K/uL (0.0-0.8); MONO % 17.7 % (0.0-10.0); WHITE BLOOD COUNT 3.8 K/uL (4.8-10.8)
[2017-03-30 08:24] LABS: CHLORIDE 97 mmol/L (98-107)
[2017-03-30 08:25] LABS: SODIUM 133 mmol/L (132-148)
[2017-03-30 08:27] LABS: ALKALINE PHOSPHATASE 60 U/L (38-126); ALT/SGPT 18 U/L (21-72); AST/SGOT 18 U/L (17-59); BILIRUBIN,TOTAL 1.2 mg/dL (0.2-1.3); BLOOD UREA NITROGEN 16 mg/dL (9-20); CARBON DIOXIDE 28 mmol/L (22-30); GFR AFRICAN-AMERICAN > 60; TOTAL PROTEIN 5.8 g/dL (6.3-8.3)
[2017-03-30 08:28] LABS: CALCIUM 7.6 mg/dl (8.6-10.4); GLUCOSE,RANDOM 178 mg/dL (75-110); MAGNESIUM 2.5 mg/dL (1.6-2.3); PHOSPHOROUS 2.8 mg/dL (2.5-4.5)
[2017-03-30] MEDS: (Novolin R) Insulin Human Regular 100 units/ml vial SC SCH ×5 (10:11→21:48)
[2017-03-30] MEDS: POLYETHYLENE GLYCOL 3350 17 GM/Dose PACKET PO SCH ×2 (10:14→17:58)
[2017-03-30] MEDS: Enoxaparin 30 mg Syringe SC SCH (10:14)
--- NOTE | 2017-03-30 10:17 | CP.PCM.PN ---
<Jamie Tovar - Last Filed: 03/30/17 12:35> Subjective - Date & Time of Evaluation Date of Evaluation: 03/30/17 Time of Evaluation: 08:15 - Subjective Subjective: Cardiology Progress Note Dr. Mcgee Patient seen and examined at bedside this AM. Patient is lying in bed comfortably in safety room. He is more oriented today as compared to status on arrival, and is able to answer questions appropriately. Denies chest pain this AM. No issues reported overnight. Objective - Vital Signs/Intake and Output Vital Signs (last 24 hours): Temp Pulse Resp BP Pulse Ox 97.4 F L 60 20 180/73 H 99 03/30/17 07:05 03/30/17 08:00 03/30/17 07:05 03/30/17 07:05 03/30/17 07:05 - Medications Medications: Current Medications Amiodarone HCl (Cordarone) 200 mg PO DAILY [facility] Last Admin: 03/29/17 10:43 Dose: 200 mg Amlodipine Besylate (Norvasc) 10 mg PO DAILY [facility] Last Admin: 03/30/17 08:11 Dose: 10 mg Carbidopa/Levodopa (Sinemet) 1 tab PO TID [facility] Last Admin: 03/29/17 17:33 Dose: 1 tab Carvedilol (Coreg) 6.25 mg PO BID [facility] Last Admin: 03/29/17 17:33 Dose: 6.25 mg Clonidine HCl (Catapres-Tts2 0.2 Mg/24 Hr) 0.2 patch TD Q7D@1000 [facility] Last Admin: 03/25/17 15:21 Dose: 0.2 patch Diphenhydramine HCl (Benadryl) 12.5 mg PO Q6 PRN PRN Reason: Agitation Enoxaparin Sodium (Lovenox) 30 mg SC DAILY [facility] Last Admin: 03/29/17 10:44 Dose: Not Given Ferrous Sulfate (Feosol) 325 mg PO BID [facility] Last Admin: 03/29/17 17:33 Dose: 325 mg Finasteride (Proscar) 5 mg PO DAILY [facility] Last Admin: 03/29/17 12:38 Dose: 5 mg Haloperidol (Haldol) 1 mg PO Q6 PRN PRN Reason: Agitation Haloperidol Lactate (Haldol) 1 mg IM Q6 PRN PRN Reason: Agitation IF REFUSE PO Meropenem 500 mg/ Sodium (Chloride) 100 mls @ 100 mls/hr IVPB Q6H [facility] Last Admin: 03/30/17 04:23 Dose: 100 mls/hr Insulin Human Regular (Novolin R) 0 unit SC ACHS NEO PRN Reason: Protocol Last Admin: 03/29/17 22:32 Dose: 2 unit Lisinopril (Zestril) 10 mg PO DAILY [facility] Last Admin: 03/29/17 10:50 Dose: 10 mg Lorazepam (Ativan) 0.5 mg PO Q6 PRN PRN Reason: IRRITABILITY Last Admin: 03/28/17 21:20 Dose: 0.5 mg Pantoprazole Sodium (Protonix Inj) 40 mg IVP DAILY [facility] Last Admin: 03/29/17 10:43 Dose: 40 mg Polyethylene Glycol (Miralax) 17 gm PO BID [facility] Last Admin: 03/29/17 17:34 Dose: 17 gm Tamsulosin HCl (Flomax) 0.4 mg PO DAILY [facility] Last Admin: 03/29/17 12:39 Dose: 0.4 mg - Labs Labs: 03/30/17 07:50 03/30/17 07:50 - Additional Findings Additional findings: - Constitutional Appears: No Acute Distress, Resting comfortably in bed, Non-toxic - Head Exam Head Exam: NORMAL INSPECTION, NORMOCEPHALIC - Eye Exam Eye Exam: EOMI, Normal appearance. Absent: Scleral Icterus, Conjunctival Injection - ENT Exam ENT Exam: Mucous Membranes Moist - Neck Exam Neck Exam: Normal Inspection. Absent: JVD - Respiratory Exam Respiratory Exam: Clear to Ausculation Bilateral, NORMAL BREATHING PATTERN - Cardiovascular Exam Cardiovascular Exam: REGULAR RHYTHM, +S1, +S2. Absent: Tachycardia, Bradycardia , Irregular Rhythm - GI/Abdominal Exam GI & Abdominal Exam: Soft, Normal Bowel Sounds. absent: Distended, Tenderness - Extremities Exam Extremities Exam: Normal Inspection. 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 merchandise salesperson - Psychiatric Exam Psychiatric exam: Normal Affect, Normal Mood - Skin Skin Exam: Normal Color, Warm, Dry, Intact Assessment and Plan (1) Ventricular tachycardia seen on manager monitoring Assessment & Plan: EKG 03/20/17: Significant artifacting, Left axis deviation, Right bundle branch block, Inferior infarct (age undetermined), Abnormal ECG EKG 03/25/17: Normal sinus rhythm, Bi-Ventricularly paced, Left anterior fascicular block, Cannot rule out Anterior infarct (age undetermined), Abnormal ECG Echo 10/18/14: LVEF 45-50%, LV systolic fxn mild-mod impaired, LV & LA mildly dilated, pacemaker lead in RV Trop x1 negative -Patient with 23 beat run of VTach on telemetry -Remains hemodynamically stable -ICD interrogated 03/28/17- normal function -F/U repeat Echo ordered- done and pending official read. -Continue to monitor, continue telemetry monitoring -Continue medical management: Amiodarone PO 200mg daily, Coreg 6.25mg PO BID Status: Acute (2) CAD (coronary artery disease) Assessment & Plan: EKG 03/20/17: Significant artifacting, Left axis deviation, Right bundle branch block, Inferior infarct (age undetermined), Abnormal ECG EKG 03/25/17: Normal sinus rhythm, Bi-Ventricularly paced, Left anterior fascicular block, Cannot rule out Anterior infarct (age undetermined), Abnormal ECG Echo 10/18/14: LVEF 45-50%, LV systolic fxn mild-mod impaired, LV & LA mildly dilated, pacemaker lead in RV -Hx CAD -Trop x1 negative -Continue medical management: Norvasc 10mg PO daily, Coreg 6.25mg PO BID, Lisinopril 10mg PO daily -Hold Plavix/ASA for recent GI bleed, Hold statin for recent admission for rhabdomyolysis Status: Chronic (3) HTN (hypertension) Assessment & Plan: -Intermittently elevated BP, SBP up to 220's this admission, 140's-180's systolic in last 24 hours -Continue to monitor -Continue medical management: Norvasc 10mg PO daily, Coreg 6.25mg PO BID, Lisinopril 10mg PO daily, Clonidine Patch Status: Chronic - Assessment and Plan (Free Text) Assessment: Case discussed with Dr. Mcgee. 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
--- NOTE | 2017-03-30 13:00 | CP.PCM.PN ---
<Kim Cheatham - Last Filed: 03/30/17 12:56> Subjective - Date & Time of Evaluation Date of Evaluation: 03/30/17 Time of Evaluation: 10:00 - Subjective Subjective: Medicine Note for Dr. Fabian, Patient was seen and examined at bedside. Patient responded appropriately to questions answered. Denied fever, chills, headache, chest pain, SOB, abdominal pain or urinary symptoms. Day 7 of Meropenem for + ESBL in Urine. Plan is for CON upon discharge. Objective - Vital Signs/Intake and Output Vital Signs (last 24 hours): Temp Pulse Resp BP Pulse Ox 97.4 F L 60 20 180/73 H 99 03/30/17 07:05 03/30/17 08:00 03/30/17 07:05 03/30/17 07:05 03/30/17 07:05 - Medications Medications: Current Medications Amiodarone HCl (Cordarone) 200 mg PO DAILY [facility] Last Admin: 03/30/17 10:13 Dose: 200 mg Amlodipine Besylate (Norvasc) 10 mg PO DAILY [facility] Last Admin: 03/30/17 10:13 Dose: Not Given Carbidopa/Levodopa (Sinemet) 1 tab PO TID [facility] Last Admin: 03/30/17 10:13 Dose: 1 tab Carvedilol (Coreg) 6.25 mg PO BID [facility] Last Admin: 03/30/17 10:13 Dose: 6.25 mg Clonidine HCl (Catapres-Tts2 0.2 Mg/24 Hr) 0.2 patch TD Q7D@1000 [facility] Last Admin: 03/25/17 15:21 Dose: 0.2 patch Diphenhydramine HCl (Benadryl) 12.5 mg PO Q6 PRN PRN Reason: Agitation Docusate Sodium (Colace) 100 mg PO TID [facility] Enoxaparin Sodium (Lovenox) 30 mg SC DAILY [facility] Last Admin: 03/30/17 10:14 Dose: 30 mg Ferrous Sulfate (Feosol) 325 mg PO BID [facility] Last Admin: 03/30/17 10:13 Dose: 325 mg Finasteride (Proscar) 5 mg PO DAILY [facility] Last Admin: 03/30/17 10:16 Dose: 5 mg Haloperidol (Haldol) 1 mg PO Q6 PRN PRN Reason: Agitation Haloperidol Lactate (Haldol) 1 mg IM Q6 PRN PRN Reason: Agitation IF REFUSE PO Meropenem 500 mg/ Sodium (Chloride) 100 mls @ 100 mls/hr IVPB Q6H [facility] Last Admin: 03/30/17 10:25 Dose: 100 mls/hr Insulin Human Regular (Novolin R) 0 unit SC ACHS NEO PRN Reason: Protocol Last Admin: 03/30/17 12:53 Dose: 8 unit Lisinopril (Zestril) 10 mg PO DAILY [facility] Last Admin: 03/30/17 10:12 Dose: 10 mg Lorazepam (Ativan) 0.5 mg PO Q6 PRN PRN Reason: IRRITABILITY Last Admin: 03/28/17 21:20 Dose: 0.5 mg Pantoprazole Sodium (Protonix Inj) 40 mg IVP DAILY [facility] Last Admin: 03/30/17 10:13 Dose: 40 mg Polyethylene Glycol (Miralax) 17 gm PO BID [facility] Last Admin: 03/30/17 10:14 Dose: 17 gm Tamsulosin HCl (Flomax) 0.4 mg PO DAILY [facility] Last Admin: 03/30/17 10:13 Dose: 0.4 mg - Labs Labs: 03/30/17 07:50 03/30/17 07:50 - Constitutional Appears: No Acute Distress - Head Exam Head Exam: NORMAL INSPECTION, NORMOCEPHALIC - Respiratory Exam Respiratory Exam: Clear to Ausculation Bilateral, NORMAL BREATHING PATTERN. absent: Decreased Breath Sounds, Wheezes - Cardiovascular Exam Cardiovascular Exam: REGULAR RHYTHM, RRR, +S1, +S2 - GI/Abdominal Exam GI & Abdominal Exam: Soft, Normal Bowel Sounds. absent: Distended, Tenderness - Extremities Exam Extremities Exam: Normal Inspection. absent: Pedal Edema, Tenderness - Neurological Exam Neurological Exam: Alert, Awake - Skin Skin Exam: Dry, Intact, Normal Color, Warm Assessment and Plan - Assessment and Plan (Free Text) Plan: UTI Afebrile, nontachycardic Pt refused labs today UA: LE 3+, Nitrate negative, WBC 371, few bacteria, 3+ glucose ID, Dr. Jane, consulted. Help appreciated. Urine cultures positive for ESBL Day 7 of 7 of Meropenem 500 mg IV q6h Pt will need 7 days of oral antibiotics upon discharge- as per Dr. Jane, Nitrofurantoin PO BID x 14 days Recurrent UTI- Urology consulted- - help appreciated - CT scan abdomen and pelvis to evaulate for hydronephrosis, started Flomax and Proscar. Constipation Mag citrate and Miralax, colace added GI Bleed- RESOLVED Monitor FOBT positive 2 units of prbcs initially transfused on admission Feosol 325mg PO BID GI consult: Dr. Guidry, help appreciated Protonix Drip discontinued as per GI As per GI, no overt bleed and no planned GI intervention at this time Diabetes Mellitus Accuchecks ACHS Insulin - medium HTN Monitor Amiodarone 200mg PO daily, Norvasc 10mg PO daily, Coreg increased to 6.25mg PO BID, clonidine 0.2mg Q7D patch, Lisinopril 10mg PO daily ECHO- EF 40-45%, mild LVH, mild to moderate pulm HTN (please see full report) CAD Hold home Lipitor Parkinson's Disease/Dementia: Restart sinemet 1 tab po tid Psych, Dr. Cortez, consulted. Help appreciated. Ativan 0.5 mg IV q6h prn for anxiety Benadryl 12.5 mg po q6h prn for agitation Haldol held Prophylactic Measures: VTE: SCDs, Lovenox 30mg SC daily GI: Protonix 40 mg po qd No more labs drawn, pending CON placement. DW Chaparrita Sampson DO, PGY-1 <Gregory Fabian - Last Filed: 03/30/17 14:58> Objective - Vital Signs/Intake and Output Vital Signs (last 24 hours): Temp Pulse Resp BP Pulse Ox 97.4 F L 60 20 180/73 H 99 03/30/17 07:05 03/30/17 08:00 03/30/17 07:05 03/30/17 07:05 03/30/17 07:05 - Medications Medications: Current Medications Amiodarone HCl (Cordarone) 200 mg PO DAILY [facility] Last Admin: 03/30/17 10:13 Dose: 200 mg Amlodipine Besylate (Norvasc) 10 mg PO DAILY [facility] Last Admin: 03/30/17 10:13 Dose: Not Given Carbidopa/Levodopa (Sinemet) 1 tab PO TID [facility] Last Admin: 03/30/17 13:53 Dose: Not Given Carvedilol (Coreg) 6.25 mg PO BID [facility] Last Admin: 03/30/17 10:13 Dose: 6.25 mg Clonidine HCl (Catapres-Tts2 0.2 Mg/24 Hr) 0.2 patch TD Q7D@1000 [facility] Last Admin: 03/25/17 15:21 Dose: 0.2 patch Diphenhydramine HCl (Benadryl) 12.5 mg PO Q6 PRN PRN Reason: Agitation Docusate Sodium (Colace) 100 mg PO TID [facility] Last Admin: 03/30/17 13:53 Dose: Not Given Enoxaparin Sodium (Lovenox) 30 mg SC DAILY [facility] Last Admin: 03/30/17 10:14 Dose: 30 mg Ferrous Sulfate (Feosol) 325 mg PO BID [facility] Last Admin: 03/30/17 10:13 Dose: 325 mg Finasteride (Proscar) 5 mg PO DAILY [facility] Last Admin: 03/30/17 10:16 Dose: 5 mg Haloperidol (Haldol) 1 mg PO Q6 PRN PRN Reason: Agitation Haloperidol Lactate (Haldol) 1 mg IM Q6 PRN PRN Reason: Agitation IF REFUSE PO Meropenem 500 mg/ Sodium (Chloride) 100 mls @ 100 mls/hr IVPB Q6H [facility] Last Admin: 03/30/17 10:25 Dose: 100 mls/hr Insulin Human Regular (Novolin R) 0 unit SC ACHS [facility] PRN Reason: Protocol Last Admin: 03/30/17 12:53 Dose: 8 unit Lisinopril (Zestril) 10 mg PO DAILY [facility] Last Admin: 03/30/17 10:12 Dose: 10 mg Lorazepam (Ativan) 0.5 mg PO Q6 PRN PRN Reason: IRRITABILITY Last Admin: 03/28/17 21:20 Dose: 0.5 mg Nitrofurantoin Macrocrystals (Macrobid) 100 mg PO Q12H [facility] Stop: 04/07/17 10:01 Pantoprazole Sodium (Protonix Inj) 40 mg IVP DAILY [facility] Last Admin: 03/30/17 10:13 Dose: 40 mg Polyethylene Glycol (Miralax) 17 gm PO BID [facility] Last Admin: 03/30/17 10:14 Dose: 17 gm Tamsulosin HCl (Flomax) 0.4 mg PO DAILY [facility] Last Admin: 03/30/17 10:13 Dose: 0.4 mg - Labs Labs: 03/30/17 07:50 03/30/17 07:50 Attending/Attestation - Attestation I have personally seen and examined this patient.: Yes I have fully participated in the care of the patient.: Yes I have reviewed all pertinent clinical information, including history, physical exam and plan: Yes Notes (Text): 03/30/17 14:57 Patient was seen and examined at bedside with the resident. Patient's mental status is improved. He appears comfortable. Patient is completed IV antibiotics for ESBL UTI. We will continue oral antibiotics as per recommendations of for ID. I discussed the plan of care with the resident and agree with the above history and physical and assessment/plan. Awaiting placement to geriatric psychiatry/CON
--- NOTE | 2017-03-30 18:44 | PN ---
DATE: 03/30/2017 SUBJECTIVE: The patient is more cooperative today. He is complaining of constipation. No reported ventricular tachycardia. PHYSICAL EXAMINATION: VITAL SIGNS: Blood pressure 180/73, heart rate 60, temperature 97.4, respirations 20. HEENT: Pale conjunctivae. CHEST: Clear. HEART: S1, S2 regular. EXTREMITIES: No edema. LABORATORIES: Today's SMA-7 is within normal limits except for glucose of 178 and chloride of 97. To day's hemoglobin and hematocrit 9.2 and 26.7, white count and platelet count 3.8 and 295. Abdomen an d pelvis CT scan: No evidence of hydronephrosis. ASSESSMENT: 1. Recurrent nonsustained ventricular tachycardia. 2. Mildly depressed left ventricular systolic function. 3. Anemia. 4. Urinary tract infection. 5. Hypertension. RECOMMENDATIONS: Continue IV meropenem at 500 mg q. 6 hours. Continue clonidine patch 0.2 mg daily, amiodarone 200 mg once a day, Coreg 6.25 mg twice a day, Lovenox 30 mg subcutaneously daily p.r.n., Haldol. Change Protonix to 40 mg p.o. once a day. Continue Zestril at 10 mg once a day. We w ill administer lactulose 20 mg p.o. now. Grey Reese MD cc: [id number] TT: 03/30/2017 18:43:20 Confirmation # [id number] Dictation # [id number]
[2017-03-30] MEDS: DiphenhydrAMINE 12.5 mg/5 ml LIQ UD (5 ml) PO PRN (23:13)
[2017-03-31] MEDS: Meropenem 500 MG in Sodium Chloride 0.9% 100 ML IVPB SCH ×4 (04:06→22:06)
[2017-03-31] MEDS: (Novolin R) Insulin Human Regular 100 units/ml vial SC SCH ×4 (07:56→21:44)
--- NOTE | 2017-03-31 08:41 | CP.PCM.PN ---
<Aminata Valdes - Last Filed: 03/31/17 08:38> Subjective - Date & Time of Evaluation Date of Evaluation: 03/31/17 Time of Evaluation: 08:00 - Subjective Subjective: Cardiology Progress Note- Dr. Mcgee Service Patient seen and examined this morning. He is asking for breakfast. Denies SOB or palpitations this AM. He admits to some right sided chest pain that is worse with palpation. Patient is also complaining of new dry cough. Answers appropriately. No other complaints at this time. All other 21 point ROS was negative. Objective - Vital Signs/Intake and Output Vital Signs (last 24 hours): Temp Pulse Resp BP Pulse Ox 97.7 F 60 20 158/64 H 98 03/31/17 07:00 03/31/17 07:00 03/31/17 07:00 03/31/17 07:00 03/31/17 07:00 Intake and Output: 03/31/17 03/31/17 06:59 18:59 Intake Total 400 Output Total 600 Balance -200 - Medications Medications: Current Medications Amiodarone HCl (Cordarone) 200 mg PO DAILY [facility] Last Admin: 03/30/17 10:13 Dose: 200 mg Amlodipine Besylate (Norvasc) 10 mg PO DAILY [facility] Last Admin: 03/30/17 10:13 Dose: Not Given Carbidopa/Levodopa (Sinemet) 1 tab PO TID [facility] Last Admin: 03/30/17 17:57 Dose: 1 tab Carvedilol (Coreg) 6.25 mg PO BID [facility] Last Admin: 03/30/17 17:55 Dose: 6.25 mg Clonidine HCl (Catapres-Tts2 0.2 Mg/24 Hr) 0.2 patch TD Q7D@1000 [facility] Last Admin: 03/25/17 15:21 Dose: 0.2 patch Diphenhydramine HCl (Benadryl) 12.5 mg PO Q6 PRN PRN Reason: Agitation Docusate Sodium (Colace) 100 mg PO TID [facility] Last Admin: 03/30/17 17:55 Dose: 100 mg Enoxaparin Sodium (Lovenox) 30 mg SC DAILY [facility] Last Admin: 03/30/17 10:14 Dose: 30 mg Ferrous Sulfate (Feosol) 325 mg PO BID [facility] Last Admin: 03/30/17 17:55 Dose: 325 mg Finasteride (Proscar) 5 mg PO DAILY [facility] Last Admin: 03/30/17 10:16 Dose: 5 mg Haloperidol (Haldol) 1 mg PO Q6 PRN PRN Reason: Agitation Haloperidol Lactate (Haldol) 1 mg IM Q6 PRN PRN Reason: Agitation IF REFUSE PO Meropenem 500 mg/ Sodium (Chloride) 100 mls @ 100 mls/hr IVPB Q6H [facility] Last Admin: 03/31/17 04:06 Dose: 100 mls/hr Insulin Human Regular (Novolin R) 0 unit SC ACHS [facility] PRN Reason: Protocol Last Admin: 03/31/17 07:56 Dose: 3 unit Lisinopril (Zestril) 10 mg PO DAILY [facility] Last Admin: 03/30/17 10:12 Dose: 10 mg Lorazepam (Ativan) 0.5 mg PO Q6 PRN PRN Reason: IRRITABILITY Last Admin: 03/28/17 21:20 Dose: 0.5 mg Nitrofurantoin Macrocrystals (Macrobid) 100 mg PO Q12H [facility] Stop: 04/07/17 10:01 Pantoprazole Sodium (Protonix Inj) 40 mg IVP DAILY [facility] Last Admin: 03/30/17 10:13 Dose: 40 mg Polyethylene Glycol (Miralax) 17 gm PO BID [facility] Last Admin: 03/30/17 17:58 Dose: 17 gm Tamsulosin HCl (Flomax) 0.4 mg PO DAILY [facility] Last Admin: 03/30/17 10:13 Dose: 0.4 mg - Labs Labs: 03/30/17 07:50 03/30/17 07:50 - Constitutional Appears: No Acute Distress, Chronically Ill - Head Exam Head Exam: NORMAL INSPECTION, NORMOCEPHALIC - Eye Exam Eye Exam: EOMI, Normal appearance - ENT Exam ENT Exam: Mucous Membranes Moist - Respiratory Exam Respiratory Exam: Clear to Ausculation Bilateral, NORMAL BREATHING PATTERN - Cardiovascular Exam Cardiovascular Exam: REGULAR RHYTHM, +S1 - GI/Abdominal Exam GI & Abdominal Exam: Soft. absent: Distended, Tenderness - Extremities Exam Extremities Exam: Full ROM, Pedal Edema. absent: Tenderness - Neurological Exam Neurological Exam: Alert, Awake, Oriented x3 - Psychiatric Exam Psychiatric exam: Normal Affect, Normal Mood - Skin Skin Exam: Pallor, Warm Assessment and Plan - Assessment and Plan (Free Text) Assessment: (1) Ventricular tachycardia seen on cardiac rehabilitation program director Assessment & Plan: -Patient with 23 beat run of VTach on telemetry 03/25/17. -Remains hemodynamically stable -ICD interrogated 03/28/17- normal function -F/U repeat Echo ordered- done and pending official read. -Continue to monitor, continue telemetry monitoring -Continue medical management: * Amiodarone PO 200mg daily * Coreg 6.25mg PO BID (increased yesterday from 3.125 PO BID) * Trop x1 negative EKG 03/20/17: Significant artifacting, Left axis deviation, Right bundle branch block, Inferior infarct (age undetermined), Abnormal ECG EKG 03/25/17: Normal sinus rhythm, Bi-Ventricularly paced, Left anterior fascicular block, Cannot rule out Anterior infarct (age undetermined), Abnormal ECG Echo 10/18/14: LVEF 45-50%, LV systolic fxn mild-mod impaired, LV & LA mildly dilated, pacemaker lead in RV Status: Acute (2) HTN (hypertension) Assessment & Plan: -BP controlled better now SBP 130-160. -Continue to monitor -Continue medical management: * Norvasc 10mg PO daily * Coreg 6.25mg PO BID (increased yesterday from 3.125 PO BID) * Lisinopril 10mg PO daily * Clonidine Patch Status: Chronic (3) CAD (coronary artery disease) Assessment & Plan: -Hx CAD - Trop x1 negative -Continue medical management: * Norvasc 10mg PO daily * Coreg 6.25mg PO BID (increased yesterday from 3.125 PO BID) * Lisinopril 10mg PO daily * Hold Plavix/ASA for recent GI bleed * Hold statin for recent admission for rhabdomyolysis EKG 03/20/17: Significant artifacting, Left axis deviation, Right bundle branch block, Inferior infarct (age undetermined), Abnormal ECG EKG 03/25/17: Normal sinus rhythm, Bi-Ventricularly paced, Left anterior fascicular block, Cannot rule out Anterior infarct (age undetermined), Abnormal ECG Echo 10/18/14: LVEF 45-50%, LV systolic fxn mild-mod impaired, LV & LA mildly dilated, pacemaker lead in RV Status: Chronic Discussed with Dr. Mcgee. <Jerrod Mcgee - Last Filed: 05/02/17 06:17> Objective - Vital Signs/Intake and Output Vital Signs (last 24 hours): Temp Pulse Resp BP Pulse Ox 97.9 F 60 20 123/59 L 96 04/01/17 16:00 04/01/17 16:00 04/01/17 16:00 04/01/17 16:00 04/01/17 16:00 - Labs Labs: 04/01/17 06:50 04/01/17 06:50 Attending/Attestation - Attestation I have personally seen and examined this patient.: Yes I have fully participated in the care of the patient.: Yes I have reviewed all pertinent clinical information, including history, physical exam and plan: Yes Notes (Text): 05/02/17 06:17 answers appr in yakut tolerating po no VT
[2017-03-31] MEDS ORDERED: guaiFENesin 200 mg/10 ml Syrup UD PO PRN (09:59)
[2017-03-31] MEDS: Enoxaparin 30 mg Syringe SC SCH (12:01)
[2017-03-31] MEDS: POLYETHYLENE GLYCOL 3350 17 GM/Dose PACKET PO SCH ×2 (12:06→17:47)
--- NOTE | 2017-03-31 14:58 | CP.PCM.PN ---
<Kim Cheatham - Last Filed: 03/31/17 14:56> Subjective - Date & Time of Evaluation Date of Evaluation: 03/31/17 Time of Evaluation: 10:00 - Subjective Subjective: Medicine Note for Dr. Fabian, Patient was seen and examined at bedside. Patient responded appropriately to questions answered. Denied fever, chills, headache, chest pain, SOB, abdominal pain or urinary symptoms. Plan is for discharge tomorrow to [facility]. Objective - Vital Signs/Intake and Output Vital Signs (last 24 hours): Temp Pulse Resp BP Pulse Ox 97.7 F 60 20 158/64 H 98 03/31/17 07:00 03/31/17 07:00 03/31/17 07:00 03/31/17 07:00 03/31/17 07:00 Intake and Output: 03/31/17 03/31/17 06:59 18:59 Intake Total 400 Output Total 600 Balance -200 - Medications Medications: Current Medications Amiodarone HCl (Cordarone) 200 mg PO DAILY [facility] Last Admin: 03/31/17 11:59 Dose: 200 mg Amlodipine Besylate (Norvasc) 10 mg PO DAILY [facility] Last Admin: 03/31/17 11:57 Dose: 10 mg Carbidopa/Levodopa (Sinemet) 1 tab PO TID [facility] Last Admin: 03/31/17 13:40 Dose: 1 tab Carvedilol (Coreg) 6.25 mg PO BID [facility] Last Admin: 03/31/17 12:04 Dose: 6.25 mg Clonidine HCl (Catapres-Tts2 0.2 Mg/24 Hr) 0.2 patch TD Q7D@1000 [facility] Last Admin: 03/25/17 15:21 Dose: 0.2 patch Diphenhydramine HCl (Benadryl) 12.5 mg PO Q6 PRN PRN Reason: Agitation Docusate Sodium (Colace) 100 mg PO TID [facility] Last Admin: 03/31/17 13:39 Dose: 100 mg Enoxaparin Sodium (Lovenox) 30 mg SC DAILY [facility] Last Admin: 03/31/17 12:01 Dose: 30 mg Ferrous Sulfate (Feosol) 325 mg PO BID [facility] Last Admin: 03/31/17 11:58 Dose: 325 mg Finasteride (Proscar) 5 mg PO DAILY [facility] Last Admin: 03/31/17 11:58 Dose: 5 mg Guaifenesin (Robitussin) 200 mg PO Q4H PRN PRN Reason: Cough and congestion Last Admin: 03/31/17 12:00 Dose: 200 mg Haloperidol (Haldol) 1 mg PO Q6 PRN PRN Reason: Agitation Haloperidol Lactate (Haldol) 1 mg IM Q6 PRN PRN Reason: Agitation IF REFUSE PO Meropenem 500 mg/ Sodium (Chloride) 100 mls @ 100 mls/hr IVPB Q6H [facility] Last Admin: 03/31/17 12:08 Dose: 100 mls/hr Insulin Human Regular (Novolin R) 0 unit SC ACHS NEO PRN Reason: Protocol Last Admin: 03/31/17 13:38 Dose: 8 unit Lisinopril (Zestril) 10 mg PO DAILY [facility] Last Admin: 03/31/17 11:59 Dose: 10 mg Lorazepam (Ativan) 0.5 mg PO Q6 PRN PRN Reason: IRRITABILITY Last Admin: 03/28/17 21:20 Dose: 0.5 mg Nitrofurantoin Macrocrystals (Macrobid) 100 mg PO Q12H [facility] Stop: 04/07/17 10:01 Last Admin: 03/31/17 12:00 Dose: 100 mg Pantoprazole Sodium (Protonix Inj) 40 mg IVP DAILY [facility] Last Admin: 03/31/17 12:00 Dose: 40 mg Polyethylene Glycol (Miralax) 17 gm PO BID [facility] Last Admin: 03/31/17 12:06 Dose: Not Given Tamsulosin HCl (Flomax) 0.4 mg PO DAILY [facility] Last Admin: 03/31/17 12:00 Dose: 0.4 mg - Labs Labs: 03/30/17 07:50 03/30/17 07:50 - Constitutional Appears: No Acute Distress - Head Exam Head Exam: NORMAL INSPECTION, NORMOCEPHALIC - ENT Exam ENT Exam: Mucous Membranes Moist - Respiratory Exam Respiratory Exam: Clear to Ausculation Bilateral, NORMAL BREATHING PATTERN - Cardiovascular Exam Cardiovascular Exam: REGULAR RHYTHM, RRR, +S1, +S2 - GI/Abdominal Exam GI & Abdominal Exam: Distended, Soft, Normal Bowel Sounds. absent: Tenderness - Neurological Exam Neurological Exam: Alert, Awake, Oriented x3 - Skin Skin Exam: Dry, Intact, Normal Color, Warm Assessment and Plan - Assessment and Plan (Free Text) Plan: UTI Afebrile, nontachycardic Pt refused labs today UA: LE 3+, Nitrate negative, WBC 371, few bacteria, 3+ glucose ID, Dr. Jane, consulted. Help appreciated. Urine cultures positive for ESBL Day 7 of 7 of Meropenem 500 mg IV q6h Pt will need 7 days of oral antibiotics upon discharge- as per Dr. Jane, Nitrofurantoin PO BID x 14 days Recurrent UTI- Urology consulted- - help appreciated - CT scan abdomen and pelvis to evaulate for hydronephrosis, started Flomax and Proscar. Constipation Mag citrate and Miralax, colace added GI Bleed- RESOLVED Monitor FOBT positive 2 units of prbcs initially transfused on admission Feosol 325mg PO BID GI consult: Dr. Guidry, help appreciated Protonix Drip discontinued as per GI As per GI, no overt bleed and no planned GI intervention at this time Diabetes Mellitus Accuchecks ACHS Insulin - high HTN Monitor Amiodarone 200mg PO daily, Norvasc 10mg PO daily, Coreg increased to 6.25mg PO BID, clonidine 0.2mg Q7D patch, Lisinopril 10mg PO daily ECHO- EF 40-45%, mild LVH, mild to moderate pulm HTN (please see full report) CAD Hold home Lipitor Parkinson's Disease/Dementia: Restart sinemet 1 tab po tid Psych, Dr. Cortez, consulted. Help appreciated. Ativan 0.5 mg IV q6h prn for anxiety Benadryl 12.5 mg po q6h prn for agitation Haldol held Prophylactic Measures: VTE: SCDs, Lovenox 30mg SC daily GI: Protonix 40 mg po qd No more labs drawn, plan is discharge tomorrow to [facility]. DW Chaparrita Sampson DO, PGY-1 <Gregory Fabian - Last Filed: 03/31/17 17:26> Objective - Vital Signs/Intake and Output Vital Signs (last 24 hours): Temp Pulse Resp BP Pulse Ox 98.5 F 65 20 116/60 96 03/31/17 16:17 03/31/17 16:17 03/31/17 16:17 03/31/17 16:17 03/31/17 16:17 Intake and Output: 03/31/17 03/31/17 06:59 18:59 Intake Total 400 100 Output Total 600 Balance -200 100 - Medications Medications: Current Medications Amiodarone HCl (Cordarone) 200 mg PO DAILY [facility] Last Admin: 03/31/17 11:59 Dose: 200 mg Amlodipine Besylate (Norvasc) 10 mg PO DAILY [facility] Last Admin: 03/31/17 11:57 Dose: 10 mg Carbidopa/Levodopa (Sinemet) 1 tab PO TID [facility] Last Admin: 03/31/17 13:40 Dose: 1 tab Carvedilol (Coreg) 6.25 mg PO BID [facility] Last Admin: 03/31/17 12:04 Dose: 6.25 mg Clonidine HCl (Catapres-Tts2 0.2 Mg/24 Hr) 0.2 patch TD Q7D@1000 [facility] Last Admin: 03/25/17 15:21 Dose: 0.2 patch Diphenhydramine HCl (Benadryl) 12.5 mg PO Q6 PRN PRN Reason: Agitation Docusate Sodium (Colace) 100 mg PO TID [facility] Last Admin: 03/31/17 13:39 Dose: 100 mg Enoxaparin Sodium (Lovenox) 30 mg SC DAILY [facility] Last Admin: 03/31/17 12:01 Dose: 30 mg Ferrous Sulfate (Feosol) 325 mg PO BID [facility] Last Admin: 03/31/17 11:58 Dose: 325 mg Finasteride (Proscar) 5 mg PO DAILY [facility] Last Admin: 03/31/17 11:58 Dose: 5 mg Guaifenesin (Robitussin) 200 mg PO Q4H PRN PRN Reason: Cough and congestion Last Admin: 03/31/17 12:00 Dose: 200 mg Haloperidol (Haldol) 1 mg PO Q6 PRN PRN Reason: Agitation Haloperidol Lactate (Haldol) 1 mg IM Q6 PRN PRN Reason: Agitation IF REFUSE PO Meropenem 500 mg/ Sodium (Chloride) 100 mls @ 100 mls/hr IVPB Q6H [facility] Last Admin: 03/31/17 16:20 Dose: 100 mls/hr Insulin Human Regular (Novolin R) 0 unit SC [facility] PRN Reason: Protocol Last Admin: 03/31/17 16:26 Dose: 4 unit Lisinopril (Zestril) 10 mg PO DAILY [facility] Last Admin: 03/31/17 11:59 Dose: 10 mg Lorazepam (Ativan) 0.5 mg PO Q6 PRN PRN Reason: IRRITABILITY Last Admin: 03/28/17 21:20 Dose: 0.5 mg Nitrofurantoin Macrocrystals (Macrobid) 100 mg PO Q12H [facility] Stop: 04/07/17 10:01 Last Admin: 03/31/17 12:00 Dose: 100 mg Pantoprazole Sodium (Protonix Inj) 40 mg IVP DAILY [facility] Last Admin: 03/31/17 12:00 Dose: 40 mg Polyethylene Glycol (Miralax) 17 gm PO BID [facility] Last Admin: 03/31/17 12:06 Dose: Not Given Tamsulosin HCl (Flomax) 0.4 mg PO DAILY [facility] Last Admin: 03/31/17 12:00 Dose: 0.4 mg - Labs Labs: 03/30/17 07:50 03/30/17 07:50 Attending/Attestation - Attestation I have personally seen and examined this patient.: Yes I have fully participated in the care of the patient.: Yes I have reviewed all pertinent clinical information, including history, physical exam and plan: Yes Notes (Text): 03/31/17 17:26 Patient was seen and examined at bedside Patient's mental status is improved significantly Patient is able to communicate and answers appropriately We will continue physical therapy Continue antibiotics for UTI Discharge planning to subacute rehabilitation center. I discussed the plan of care with the resident and agree with the above history and physical and assessment/plan by the resident
--- NOTE | 2017-03-31 18:00 | PN ---
DATE: 03/31/2017 The patient is currently sitting in a chair, cooperative, eating. Denies chest pain. He does not ap pear to be in any respiratory distress. PHYSICAL EXAMINATION: VITAL SIGNS: Blood pressure 116/60, heart rate 65, temperature 98.5, respirations 20. HEENT: Pale conjunctivae. CHEST: Minimal rhonchi. HEART: S1, S2 regular. EXTREMITIES: No edema. LABORATORIES: Today's blood sugar 230, 399, and 239. The patient is currently off telemetry. ASSESSMENT: 1. Congestive heart failure. 2. Recurrent nonsustained ventricular tachycardia. 3. Parkinsonism. 4. Benign prostatic hypertrophy. 5. Systemic hypertension. 6. Urinary tract infection. RECOMMENDATIONS: Continue current clonidine patch at 0.2 mg. Continue amiodarone 200 mg once a day, Coreg at 6.25 mg twice a day, p.r.n. Haldol at 1 mg orally q. 6 hours, subcutaneous Lovenox 30 mg on ce a day, chlorthalidone 25 mg once a day. Continue IV meropenem and IV imipenem. Continue Norvasc 10 mg once a day. Continue Vasotec 2.5 mg once a day. Grey Reese MD cc: [id number] TT: 03/31/2017 17:59:33 Confirmation # [id number] Dictation # [id number] lynn
[2017-04-01] MEDS: Meropenem 500 MG in Sodium Chloride 0.9% 100 ML IVPB SCH ×3 (05:12→17:25)
[2017-04-01 06:55] LABS: HEMATOCRIT 29.2 % (35.0-51.0); MEAN CELL VOLUME 80.4 fL (80.0-94.0); MEAN CORPUSCULAR HEMOGLOBIN 26.5 pg (27.0-31.0); MEAN PLATELET VOLUME 7.9 fL (7.2-11.7); WHITE BLOOD COUNT 4.9 K/uL (4.8-10.8)
[2017-04-01 07:23] LABS: CHLORIDE 97 mmol/L (98-107)
[2017-04-01 07:24] LABS: POTASSIUM 4.4 mmol/L (3.6-5.2); SODIUM 133 mmol/L (132-148)
[2017-04-01 07:26] LABS: ALKALINE PHOSPHATASE 67 U/L (38-126); ALT/SGPT 17 U/L (21-72); AST/SGOT 17 U/L (17-59); BILIRUBIN,TOTAL 1.2 mg/dL (0.2-1.3); BLOOD UREA NITROGEN 18 mg/dL (9-20); CARBON DIOXIDE 28 mmol/L (22-30); GFR AFRICAN-AMERICAN > 60; GLUCOSE,RANDOM 201 mg/dL (75-110)
[2017-04-01 07:27] LABS: CALCIUM 8.2 mg/dl (8.6-10.4); MAGNESIUM 2.5 mg/dL (1.6-2.3)
[2017-04-01] MEDS: (Novolin R) Insulin Human Regular 100 units/ml vial SC SCH ×3 (07:30→17:31)
[2017-04-01 08:12] VITALS: PULSE 60
[2017-04-01] MEDS: Enoxaparin 30 mg Syringe SC SCH (11:08)
[2017-04-01] MEDS: POLYETHYLENE GLYCOL 3350 17 GM/Dose PACKET PO SCH ×2 (11:09→17:32)
--- NOTE | 2017-04-01 11:32 | CP.PCM.PN ---
<Jamie Tovar - Last Filed: 04/01/17 16:56> Subjective - Date & Time of Evaluation Date of Evaluation: 04/01/17 Time of Evaluation: 07:55 - Subjective Subjective: Cardiology Progress Note Dr. Mcgee Patient seen and examined this morning. Awake and alert this AM, tracking staff in room appropriately, but more disoriented compared to yesterday ( oriented to self, partially to place, not to time). No acute events overnight. Denies chest pain or pain with respiration. No other complaints at this time. All other ROS negative. Per primary team, he is pending discharge to [facility] today. Objective - Vital Signs/Intake and Output Vital Signs (last 24 hours): Temp Pulse Resp BP Pulse Ox 97.6 F 60 18 162/61 H 99 04/01/17 08:11 04/01/17 08:11 04/01/17 08:11 04/01/17 08:11 04/01/17 08:11 Intake and Output: 04/01/17 04/01/17 06:59 18:59 Intake Total 760 Output Total 1300 Balance -540 - Medications Medications: Current Medications Amiodarone HCl (Cordarone) 200 mg PO DAILY [facility] Last Admin: 04/01/17 11:09 Dose: 200 mg Amlodipine Besylate (Norvasc) 10 mg PO DAILY [facility] Last Admin: 04/01/17 11:09 Dose: 10 mg Carbidopa/Levodopa (Sinemet) 1 tab PO TID [facility] Last Admin: 04/01/17 11:11 Dose: 1 tab Carvedilol (Coreg) 6.25 mg PO BID [facility] Last Admin: 04/01/17 11:10 Dose: 6.25 mg Clonidine HCl (Catapres-Tts2 0.2 Mg/24 Hr) 0.2 patch TD Q7D@1000 [facility] Last Admin: 04/01/17 11:10 Dose: 0.2 patch Diphenhydramine HCl (Benadryl) 12.5 mg PO Q6 PRN PRN Reason: Agitation Docusate Sodium (Colace) 100 mg PO TID [facility] Last Admin: 04/01/17 11:09 Dose: 100 mg Enoxaparin Sodium (Lovenox) 30 mg SC DAILY [facility] Last Admin: 04/01/17 11:08 Dose: 30 mg Ferrous Sulfate (Feosol) 325 mg PO BID [facility] Last Admin: 04/01/17 11:10 Dose: 325 mg Finasteride (Proscar) 5 mg PO DAILY [facility] Last Admin: 04/01/17 11:09 Dose: 5 mg Guaifenesin (Robitussin) 200 mg PO Q4H PRN PRN Reason: Cough and congestion Last Admin: 03/31/17 12:00 Dose: 200 mg Haloperidol (Haldol) 1 mg PO Q6 PRN PRN Reason: Agitation Haloperidol Lactate (Haldol) 1 mg IM Q6 PRN PRN Reason: Agitation IF REFUSE PO Meropenem 500 mg/ Sodium (Chloride) 100 mls @ 100 mls/hr IVPB Q6H [facility] Last Admin: 04/01/17 05:12 Dose: 100 mls/hr Insulin Human Regular (Novolin R) 0 unit SC ACHS NEO PRN Reason: Protocol Last Admin: 04/01/17 07:30 Dose: Not Given Lisinopril (Zestril) 10 mg PO DAILY [facility] Last Admin: 03/31/17 11:59 Dose: 10 mg Lorazepam (Ativan) 0.5 mg PO Q6 PRN PRN Reason: IRRITABILITY Last Admin: 03/28/17 21:20 Dose: 0.5 mg Nitrofurantoin Macrocrystals (Macrobid) 100 mg PO Q12H [facility] Stop: 04/07/17 10:01 Last Admin: 04/01/17 11:09 Dose: 100 mg Pantoprazole Sodium (Protonix Inj) 40 mg IVP DAILY [facility] Last Admin: 04/01/17 11:09 Dose: 40 mg Polyethylene Glycol (Miralax) 17 gm PO BID [facility] Last Admin: 04/01/17 11:09 Dose: 17 gm Tamsulosin HCl (Flomax) 0.4 mg PO DAILY [facility] Last Admin: 04/01/17 11:09 Dose: 0.4 mg - Labs Labs: 04/01/17 06:50 04/01/17 06:50 - Additional Findings Additional findings: - Constitutional Appears: No Acute Distress, Resting comfortably in bed, Chronically Ill - Head Exam Head Exam: NORMAL INSPECTION, NORMOCEPHALIC - Eye Exam Eye Exam: EOMI, Normal appearance - ENT Exam ENT Exam: Mucous Membranes Moist - Respiratory Exam Respiratory Exam: Clear to Ausculation Bilateral, NORMAL BREATHING PATTERN, No wheezes/rales/ronchi - Cardiovascular Exam Cardiovascular Exam: REGULAR RHYTHM, +S1/S2 - GI/Abdominal Exam GI & Abdominal Exam: Soft, NTND, no firmness/rigidity - Extremities Exam Extremities Exam: Full ROM, Pedal Edema. absent: Tenderness - Neurological Exam Neurological Exam: Alert, Awake, Oriented to self and partially to location ( knows he is in a hospital in [place], not sure which one), not to time - Psychiatric Exam Psychiatric exam: Normal Affect, Normal Mood - Skin Skin Exam: Pallor, Warm Assessment and Plan (1) Ventricular tachycardia seen on radiation monitor Assessment & Plan: EKG 03/20/17: Significant artifacting, Left axis deviation, Right bundle branch block, Inferior infarct (age undetermined), Abnormal ECG EKG 03/25/17: Normal sinus rhythm, Bi-Ventricularly paced, Left anterior fascicular block, Cannot rule out Anterior infarct (age undetermined), Abnormal ECG Echo 10/18/14: LVEF 45-50%, LV systolic fxn mild-mod impaired, LV & LA mildly dilated, pacemaker lead in RV Trop x1 negative -Patient with 23 beat run of VTach on telemetry -Remains hemodynamically stable -ICD interrogated 03/28/17- normal function -F/U repeat Echo ordered- done and pending official read. -Continue to monitor, continue telemetry monitoring -Continue medical management: Amiodarone PO 200mg daily, Coreg 6.25mg PO BID Status: Acute (2) CAD (coronary artery disease) Assessment & Plan: EKG 03/20/17: Significant artifacting, Left axis deviation, Right bundle branch block, Inferior infarct (age undetermined), Abnormal ECG EKG 03/25/17: Normal sinus rhythm, Bi-Ventricularly paced, Left anterior fascicular block, Cannot rule out Anterior infarct (age undetermined), Abnormal ECG Echo 10/18/14: LVEF 45-50%, LV systolic fxn mild-mod impaired, LV & LA mildly dilated, pacemaker lead in RV -Hx CAD -Trop x1 negative -Continue medical management: Norvasc 10mg PO daily, Coreg 6.25mg PO BID, Lisinopril 10mg PO daily -Hold Plavix/ASA for recent GI bleed, Hold statin for recent admission for rhabdomyolysis Status: Chronic (3) HTN (hypertension) Assessment & Plan: -Intermittently elevated BP, SBP up to 220's this admission, 140's-180's systolic in last 24 hours -Continue to monitor -Continue medical management: Norvasc 10mg PO daily, Coreg 6.25mg PO BID, Lisinopril 10mg PO daily, Clonidine Patch Status: Chronic - Assessment and Plan (Free Text) Assessment: Case discussed with Dr. Mcgee. <Jerrod Mcgee - Last Filed: 05/02/17 06:17> Objective - Vital Signs/Intake and Output Vital Signs (last 24 hours): Temp Pulse Resp BP Pulse Ox 97.9 F 60 20 123/59 L 96 04/01/17 16:00 04/01/17 16:00 04/01/17 16:00 04/01/17 16:00 04/01/17 16:00 - Labs Labs: 04/01/17 06:50 04/01/17 06:50 Attending/Attestation - Attestation I have personally seen and examined this patient.: Yes I have fully participated in the care of the patient.: Yes I have reviewed all pertinent clinical information, including history, physical exam and plan: Yes Notes (Text): 05/02/17 06:16 Pt more awake less confused ICD stable
--- NOTE | 2017-04-01 14:59 | CP.PCM.DIS ---
<Kim Cheatham - Last Filed: 04/01/17 14:53> Provider - Provider Date of Admission: 03/20/17 21:43 Attending physician: Gregory Fabian MD Time Spent in preparation of Discharge (in minutes): 55 Hospital Course - Lab Results Lab Results: Micro Results 03/20/17 22:10 Blood Blood Culture - Final NO GROWTH AFTER 5 DAYS 03/20/17 22:10 Blood Gram Stain - Final TEST NOT PERFORMED 03/20/17 Unknown Urine Urine Culture - Final Escherichia Coli Most Recent Lab Values WBC 4.9 K/uL (4.8-10.8) 04/01/17 06:50 RBC 3.63 Mil/uL (4.40-5.90) L 04/01/17 06:50 Hgb 9.6 g/dL (12.0-18.0) L 04/01/17 06:50 Hct 29.2 % (35.0-51.0) L 04/01/17 06:50 MCV 80.4 fL (80.0-94.0) 04/01/17 06:50 MCH 26.5 pg (27.0-31.0) L 04/01/17 06:50 MCHC 33.0 g/dL (33.0-37.0) 04/01/17 06:50 RDW 15.0 % (11.5-14.5) H 04/01/17 06:50 Plt Count 281 K/uL (130-400) 04/01/17 06:50 MPV 7.9 fL (7.2-11.7) 04/01/17 06:50 Neut % (Auto) 52.5 % (50.0-75.0) 03/30/17 07:50 Lymph % (Auto) 27.2 % (20.0-40.0) 03/30/17 07:50 Archer % (Auto) 17.7 % (0.0-10.0) H 03/30/17 07:50 Eos % (Auto) 2.5 % (0.0-4.0) 03/30/17 07:50 Baso % (Auto) 0.1 % (0.0-2.0) 03/30/17 07:50 Neut # 2.0 K/uL (1.8-7.0) 03/30/17 07:50 Lymph # 1.0 K/uL (1.0-4.3) 03/30/17 07:50 Archer # 0.7 K/uL (0.0-0.8) 03/30/17 07:50 Eos # 0.1 K/uL (0.0-0.7) 03/30/17 07:50 Baso # 0.0 K/uL (0.0-0.2) 03/30/17 07:50 Retic Count 3.6 % (0.5-1.5) H 03/22/17 06:12 pO2 31 mm/Hg (30-55) 03/20/17 20:30 VBG pH 7.34 (7.32-7.43) 03/20/17 20:30 VBG pCO2 45 mmHg (40-60) 03/20/17 20:30 VBG HCO3 22.4 mmol/L 03/20/17 20:30 VBG Total CO2 25.7 mmol/L (22-28) 03/20/17 20:30 VBG O2 Sat (Calc) 62.4 % (40-65) 03/20/17 20:30 VBG Base Excess -1.7 mmol/L (0.0-2.0) L 03/20/17 20:30 VBG Potassium 4.2 mmol/L (3.6-5.2) 03/20/17 20:30 Sodium 138.0 mmol/l (132-148) 03/20/17 20:30 Chloride 110.0 mmol/L (98-107) H 03/20/17 20:30 Glucose 261 mg/dl (75-110) H 03/20/17 20:30 Lactate 1.4 mmol/L (0.7-2.1) 03/20/17 20:30 FiO2 21.0 % 03/20/17 20:30 Sodium 133 mmol/L (132-148) 04/01/17 06:50 Potassium 4.4 mmol/L (3.6-5.2) 04/01/17 06:50 Chloride 97 mmol/L (98-107) L 04/01/17 06:50 Carbon Dioxide 28 mmol/L (22-30) 04/01/17 06:50 Anion Gap 12 (10-20) 04/01/17 06:50 BUN 18 mg/dL (9-20) 04/01/17 06:50 Creatinine 1.1 MG/DL (0.8-1.5) 04/01/17 06:50 Est GFR ( Amer) > 60 04/01/17 06:50 Est GFR (Non-Af Amer) > 60 04/01/17 06:50 POC Glucose (mg/dL) 391 mg/dL (65-110) H 04/01/17 11:42 Random Glucose 201 mg/dL (75-110) H 04/01/17 06:50 Calcium 8.2 mg/dl (8.6-10.4) L 04/01/17 06:50 Phosphorus 3.0 mg/dL (2.5-4.5) 04/01/17 06:50 Magnesium 2.5 mg/dL (1.6-2.3) H 04/01/17 06:50 Iron 20 ug/dL (49-181) L 03/22/17 06:12 TIBC 294 ug/dL (250-450) 03/22/17 06:12 % Saturation 7 (20-55) L 03/22/17 06:12 Ferritin 15.6 ng/mL 03/22/17 06:12 Total Bilirubin 1.2 mg/dL (0.2-1.3) 04/01/17 06:50 AST 17 U/L (17-59) 04/01/17 06:50 ALT 17 U/L (21-72) L 04/01/17 06:50 Alkaline Phosphatase 67 U/L (38-126) 04/01/17 06:50 Troponin I < 0.0120 ng/mL (0.00-0.120) 03/26/17 17:16 Total Protein 6.0 g/dL (6.3-8.3) L 04/01/17 06:50 Albumin 3.0 g/dL (3.5-5.0) L 04/01/17 06:50 Globulin 3.0 gm/dL (2.2-3.9) 04/01/17 06:50 Albumin/Globulin Ratio 1.0 (1.0-2.1) 04/01/17 06:50 Venous Blood Potassium 4.2 mmol/L (3.6-5.2) 03/20/17 20:30 Urine Color Yellow (YELLOW) 03/20/17 21:21 Urine Clarity Hazy (Clear) 03/20/17 21:21 Urine pH 5.0 (5.0-8.0) 03/20/17 21:21 Ur Specific [place] 1.008 (1.003-1.030) 03/20/17 21:21 Urine Protein Negative mg/dL (NEGATIVE) 03/20/17 21:21 Urine Glucose (UA) 3+ mg/dL (Normal) H 03/20/17 21:21 Urine Ketones Negative mg/dL (NEGATIVE) 03/20/17 21:21 Urine Blood Negative (NEGATIVE) 03/20/17 21:21 Urine Nitrate Negative (NEGATIVE) 03/20/17 21:21 Urine Bilirubin Negative (NEGATIVE) 03/20/17 21:21 Urine Urobilinogen Normal mg/dL (0.2-1.0) 03/20/17 21:21 Ur Leukocyte Esterase 3+ Bahman/uL (Negative) H 03/20/17 21:21 Urine WBC (Auto) 371 /hpf (0-5) H 03/20/17 21:21 Urine RBC (Auto) 3 /hpf (0-3) 03/20/17 21:21 Urine WBC Clumps (Auto) Mod /hpf (NONE) H 03/20/17 21:21 Ur Squamous Epith Cells < 1 /hpf (0-5) 03/20/17 21:21 Urine Bacteria Few (<OCC) H 03/20/17 21:21 Stool Occult Blood Positive (NEGATIVE) H 03/20/17 21:23 Serum Ketones Negative (NEGATIVE) 03/20/17 20:32 Blood Type O POSITIVE 03/22/17 23:00 Antibody Screen Negative 03/22/17 23:00 - Hospital Course Hospital Course: Upon Admission: Patient is an 81 year old male, with PMHx of diabetes, hypertension, hypercholesterolemia, arthritis, CAD and Parkinson's disease brought to ED by BLS. He is c/o of headache, associated with dizziness, body aches. Patient is a poor historian, and is oriented to person and place, but not time or context. He denies abdominal pain, nausea, vomiting, diarrhea, urinary symptoms, subjective fever, or chills. Pt does admit to constipation but denies any clark blood in stools. He responds, "I don't know" when asked if he has ever had a colonoscopy. Patient lives at home alone with daily homemaker for some hours of the day. He states that he is able to walk with a rolling walker at baseline, and denies any recent falls. Review of EMR however shows syncopal episode/fall that led to admission in December of 2016. In that admission he was treated for UTI, and rhabdomyolysis. Will reach out to daughter for further history in AM. PMHx: see above PSHx: pacemaker placement, coronary stent Family Hx: denies Allergies: NKA PMD: unknown Pharmacy: [facility] Throughout Hospital Course: Patient was admitted for GI Bleed. Patient was transfused 2 units of PRBCs and was seen by GI. No intervention occurred during this admission. Patient had + ESBL UTI which he was placed on IV ABX and discharged with PO ABX. He was resumed on his home medications for Parkinson's Disease, hypertension, CAD, and Diabetes. Patient was discharged to LTAC for further PT and rehabilitation. This is a brief summary of the patient's hospital course, please see EMR for the complete record. Discharge Exam - Head Exam Head Exam: NORMAL INSPECTION, NORMOCEPHALIC - Eye Exam Eye Exam: Normal appearance - ENT Exam ENT Exam: Mucous Membranes Moist - Respiratory Exam Respiratory Exam: NORMAL BREATHING PATTERN - Cardiovascular Exam Cardiovascular Exam: REGULAR RHYTHM - GI/Abdominal Exam GI & Abdominal Exam: Normal Bowel Sounds, Soft. absent: Distended, Unremarkable - Extremities Exam Extremities exam: normal inspection, pedal pulses present - Neurological Exam Neurological exam: Alert, Oriented x3 - Skin Skin Exam: Dry, Intact, Normal Color, Warm Discharge Plan - Discharge Medications Prescriptions: Amiodarone HCl 200 mg PO DAILY 100 Days - Follow Up Plan Condition: STABLE Disposition: REHAB FACILITY/REHAB UNIT Instructions: Urinary Tract Infection in Men (DC), Dysuria (GEN) Additional Instructions: Patient is safe for discharge to [facility]. Patient is to continue home medications as prescribed. Patient is to continue taking Macrobid 100mg PO Q12H for 6 more days and Zithromax 250mg PO daily for another 4 days. Patient suffers from constipation, miralax, milk of magnesia, or other agents should be used in conjunction with colace for regularity. Patient is to follow up with PMD within 1-2 weeks. Patient encouraged to return to the ED if his symptoms return. <Gregory Fabian - Last Filed: 04/01/17 15:56> Provider - Provider Date of Admission: 03/20/17 21:43 Attending physician: Gregory Fabian MD Hospital Course - Lab Results Lab Results: Micro Results 03/20/17 22:10 Blood Blood Culture - Final NO GROWTH AFTER 5 DAYS 03/20/17 22:10 Blood Gram Stain - Final TEST NOT PERFORMED 03/20/17 Unknown Urine Urine Culture - Final Escherichia Coli Most Recent Lab Values WBC 4.9 K/uL (4.8-10.8) 04/01/17 06:50 RBC 3.63 Mil/uL (4.40-5.90) L 04/01/17 06:50 Hgb 9.6 g/dL (12.0-18.0) L 04/01/17 06:50 Hct 29.2 % (35.0-51.0) L 04/01/17 06:50 MCV 80.4 fL (80.0-94.0) 04/01/17 06:50 MCH 26.5 pg (27.0-31.0) L 04/01/17 06:50 MCHC 33.0 g/dL (33.0-37.0) 04/01/17 06:50 RDW 15.0 % (11.5-14.5) H 04/01/17 06:50 Plt Count 281 K/uL (130-400) 04/01/17 06:50 MPV 7.9 fL (7.2-11.7) 04/01/17 06:50 Neut % (Auto) 52.5 % (50.0-75.0) 03/30/17 07:50 Lymph % (Auto) 27.2 % (20.0-40.0) 03/30/17 07:50 Archer % (Auto) 17.7 % (0.0-10.0) H 03/30/17 07:50 Eos % (Auto) 2.5 % (0.0-4.0) 03/30/17 07:50 Baso % (Auto) 0.1 % (0.0-2.0) 03/30/17 07:50 Neut # 2.0 K/uL (1.8-7.0) 03/30/17 07:50 Lymph # 1.0 K/uL (1.0-4.3) 03/30/17 07:50 Archer # 0.7 K/uL (0.0-0.8) 03/30/17 07:50 Eos # 0.1 K/uL (0.0-0.7) 03/30/17 07:50 Baso # 0.0 K/uL (0.0-0.2) 03/30/17 07:50 Retic Count 3.6 % (0.5-1.5) H 03/22/17 06:12 pO2 31 mm/Hg (30-55) 03/20/17 20:30 VBG pH 7.34 (7.32-7.43) 03/20/17 20:30 VBG pCO2 45 mmHg (40-60) 03/20/17 20:30 VBG HCO3 22.4 mmol/L 03/20/17 20:30 VBG Total CO2 25.7 mmol/L (22-28) 03/20/17 20:30 VBG O2 Sat (Calc) 62.4 % (40-65) 03/20/17 20:30 VBG Base Excess -1.7 mmol/L (0.0-2.0) L 03/20/17 20:30 VBG Potassium 4.2 mmol/L (3.6-5.2) 03/20/17 20:30 Sodium 138.0 mmol/l (132-148) 03/20/17 20:30 Chloride 110.0 mmol/L (98-107) H 03/20/17 20:30 Glucose 261 mg/dl (75-110) H 03/20/17 20:30 Lactate 1.4 mmol/L (0.7-2.1) 03/20/17 20:30 FiO2 21.0 % 03/20/17 20:30 Sodium 133 mmol/L (132-148) 04/01/17 06:50 Potassium 4.4 mmol/L (3.6-5.2) 04/01/17 06:50 Chloride 97 mmol/L (98-107) L 04/01/17 06:50 Carbon Dioxide 28 mmol/L (22-30) 04/01/17 06:50 Anion Gap 12 (10-20) 04/01/17 06:50 BUN 18 mg/dL (9-20) 04/01/17 06:50 Creatinine 1.1 MG/DL (0.8-1.5) 04/01/17 06:50 Est GFR ( Amer) > 60 04/01/17 06:50 Est GFR (Non-Af Amer) > 60 04/01/17 06:50 POC Glucose (mg/dL) 391 mg/dL (65-110) H 04/01/17 11:42 Random Glucose 201 mg/dL (75-110) H 04/01/17 06:50 Calcium 8.2 mg/dl (8.6-10.4) L 04/01/17 06:50 Phosphorus 3.0 mg/dL (2.5-4.5) 04/01/17 06:50 Magnesium 2.5 mg/dL (1.6-2.3) H 04/01/17 06:50 Iron 20 ug/dL (49-181) L 03/22/17 06:12 TIBC 294 ug/dL (250-450) 03/22/17 06:12 % Saturation 7 (20-55) L 03/22/17 06:12 Ferritin 15.6 ng/mL 03/22/17 06:12 Total Bilirubin 1.2 mg/dL (0.2-1.3) 04/01/17 06:50 AST 17 U/L (17-59) 04/01/17 06:50 ALT 17 U/L (21-72) L 04/01/17 06:50 Alkaline Phosphatase 67 U/L (38-126) 04/01/17 06:50 Troponin I < 0.0120 ng/mL (0.00-0.120) 03/26/17 17:16 Total Protein 6.0 g/dL (6.3-8.3) L 04/01/17 06:50 Albumin 3.0 g/dL (3.5-5.0) L 04/01/17 06:50 Globulin 3.0 gm/dL (2.2-3.9) 04/01/17 06:50 Albumin/Globulin Ratio 1.0 (1.0-2.1) 04/01/17 06:50 Venous Blood Potassium 4.2 mmol/L (3.6-5.2) 03/20/17 20:30 Urine Color Yellow (YELLOW) 03/20/17 21:21 Urine Clarity Hazy (Clear) 03/20/17 21:21 Urine pH 5.0 (5.0-8.0) 03/20/17 21:21 Ur Specific [place] 1.008 (1.003-1.030) 03/20/17 21:21 Urine Protein Negative mg/dL (NEGATIVE) 03/20/17 21:21 Urine Glucose (UA) 3+ mg/dL (Normal) H 03/20/17 21:21 Urine Ketones Negative mg/dL (NEGATIVE) 03/20/17 21:21 Urine Blood Negative (NEGATIVE) 03/20/17 21:21 Urine Nitrate Negative (NEGATIVE) 03/20/17 21:21 Urine Bilirubin Negative (NEGATIVE) 03/20/17 21:21 Urine Urobilinogen Normal mg/dL (0.2-1.0) 03/20/17 21:21 Ur Leukocyte Esterase 3+ Bahman/uL (Negative) H 03/20/17 21:21 Urine WBC (Auto) 371 /hpf (0-5) H 03/20/17 21:21 Urine RBC (Auto) 3 /hpf (0-3) 03/20/17 21:21 Urine WBC Clumps (Auto) Mod /hpf (NONE) H 03/20/17 21:21 Ur Squamous Epith Cells < 1 /hpf (0-5) 03/20/17 21:21 Urine Bacteria Few (<OCC) H 03/20/17 21:21 Stool Occult Blood Positive (NEGATIVE) H 03/20/17 21:23 Serum Ketones Negative (NEGATIVE) 03/20/17 20:32 Blood Type O POSITIVE 03/22/17 23:00 Antibody Screen Negative 03/22/17 23:00 Attending/Attestation - Attestation I have personally seen and examined this patient.: Yes I have fully participated in the care of the patient.: Yes I have reviewed all pertinent clinical information, including history, physical exam and plan: Yes Notes (Text): 04/01/17 15:56 Patient was seen and examined at bedside with the resident Patient appears comfortable. Repeat x-ray chest seen. No infiltrates noted. We will discharge the patient to subacute rehabilitation center on oral antibiotics I agree with the above discharge note by the resident.
--- NOTE | 2017-04-01 16:06 | RAD ---
HISTORY: cough COMPARISON: 03/20/2017 FINDINGS: LUNGS: Opacity at left base with silhouetting of left hemidiaphragm. This may be the result of infiltrate or pleural effusion. PLEURA: Slight blunting of left costophrenic angle. Possible left pleural effusion. No evidence of right pleural effusion. No pneumothorax. CARDIOVASCULAR: AICD OSSEOUS STRUCTURES: No significant abnormalities. VISUALIZED UPPER ABDOMEN: Normal. OTHER FINDINGS: None. IMPRESSION: Left basilar opacity, infiltrate versus pleural effusion.
[2017-04-01 17:09] VITALS: BP 123/59; RESP 20; TEMP 97.9; O2SAT 96
--- NOTE | 2017-04-01 17:11 | PN ---
DATE: 04/01/2017 The patient is very cooperative, sitting and eating on 1:1 watch, who was able to translate to me. T he patient denies any chest pain or shortness of breath. PHYSICAL EXAMINATION: VITAL SIGNS: Blood pressure 162/61, heart rate 60, temperature 97.6 and respirations 18. HEENT: Pale conjunctivae. CHEST: Clear. HEART: S1, S2 regular. EXTREMITIES: No edema. LABORATORY DATA: Hemoglobin and hematocrit 9.6 and 29.2, white count and platelet count are within n ormal limits. SMA-7 is within normal limits except for a glucose of 201 and of chloride 97. ASSESSMENT: 1. Mildly depressed left ventricular systolic function. 2. Recurrent nonsustained ventricular tachycardia. 3. History of implantable cardioverter-defibrillator placement. 4. Parkinsonism. 5. Dementia. RECOMMENDATIONS: Continue current clonidine patch. Continue amiodarone 200 mg once a day, Coreg 6.2 5 mg twice a day, p.r.n. oral Haldol, continue IV meropenem at 500 mg q. 6 hours, Norvasc 10 mg once a day, Zestril 10 mg once a day, Zithromax at 250 mg orally once a day and Sinemet 1 tablet t.i.d. Grey Reese MD cc: [id number] TT: 04/01/2017 17:10:02 Confirmation # [id number] Dictation # [id number]
== END 2017-04-01 20:24 | DRG 378 ==
LOC: C.ER 19:40 → C.9OBSV 20:15 → OBSVTOIN 21:43 → C.9E 21:55 → C.5T 03-21 02:45
PROVIDERS: ADMIT Internal Medicine; ATTEND Internal Medicine
PROC: 30233N1 Transfusion of Nonautologous Red Blood Cells into Peripheral Vein, Percutaneous Approach (ICD-10-PCS; principal; 2017-03-22)
DX: K92.2 Gastrointestinal hemorrhage, unspecified (principal); I47.2 Ventricular tachycardia; I42.9 Cardiomyopathy, unspecified; N39.0 Urinary tract infection, site not specified; E11.65 Type 2 diabetes mellitus with hyperglycemia; I25.10 Atherosclerotic heart disease of native coronary artery without angina pectoris; G20 Parkinson's disease; I50.9 Heart failure, unspecified; B96.20 Unspecified Escherichia coli [E. coli] as the cause of diseases classified elsewhere; Z16.12 Extended spectrum beta lactamase (ESBL) resistance; I12.9 Hypertensive chronic kidney disease with stage 1 through stage 4 chronic kidney disease, or unspecified chronic kidney disease; N18.9 Chronic kidney disease, unspecified; E78.00 Pure hypercholesterolemia, unspecified; M19.90 Unspecified osteoarthritis, unspecified site; F32.9 Major depressive disorder, single episode, unspecified; Z95.5 Presence of coronary angioplasty implant and graft; Z95.0 Presence of cardiac pacemaker; E78.5 Hyperlipidemia, unspecified; D50.9 Iron deficiency anemia, unspecified; R19.5 Other fecal abnormalities; Z87.440 Personal history of urinary (tract) infections; K59.00 Constipation, unspecified; N40.0 Benign prostatic hyperplasia without lower urinary tract symptoms

== ENCOUNTER 2017-08-20 14:09 | Emergency (ER) | payer MEDICARE, MEDICAID ==
[2017-08-20 14:28] VITALS: BMI 27.1
--- NOTE | 2017-08-20 14:29 | C.PDOC ---
History Of Present Illness 82 year old male, poor historian due to dementia, presents to the ED stating "everything hurts." Patient was admitted in March 2017 for similar chief complaint. Pain is of unknown duration. No family at bedside. POOR HISTORIAN, HO DEMENTIA ADMITTED 03/2017 FOR GI BLEED SP TRANSFUSION PMHx of diabetes, hypertension, hypercholesterolemia, arthritis, CAD and Parkinson's disease Time Seen by Provider: 08/20/17 14:25 Chief Complaint (Nursing): Weakness/Neurological Deficit History Per: Patient History/Exam Limitations: other (Dementia ) Onset/Duration Of Symptoms: Unknown Past Medical History Reviewed: Historical Data, Nursing Documentation, Vital Signs Vital Signs: Last Vital Signs Temp 98.2 F 08/20/17 18:18 Pulse 69 08/20/17 18:18 Resp 20 08/20/17 18:18 BP 195/78 H 08/20/17 18:18 Pulse Ox 98 08/20/17 18:18 - Medical History PMH: Arthritis, Asthma, CAD, Diabetes, HTN, Hypercholesterolemia, Hyperlipidemia , Parkinson's Disease, Chronic Kidney Disease Surgical History: Coronary Stent, Pacemaker - [facility] Procedures TETANUS TOXOID ADMINIST (10/01/13) TRANSFUSE NONAUT RED BLOOD CELLS IN PERIPH VEIN, PERC (03/20/17) Family History: States: Unknown Family Hx - Social History Hx Tobacco Use: No Hx Alcohol Use: No Hx Substance Use: No - Immunization History Hx Tetanus Toxoid Vaccination: No Hx Influenza Vaccination: Yes Hx Pneumococcal Vaccination: No Review Of Systems Review Of Systems: ROS cannot be obtained secondary to pt's inabilty to answer questions. (dementia) Physical Exam - Physical Exam Appears: Non-toxic, No Acute Distress Skin: Normal Color, Warm, Dry Head: Atraumatic, Normacephalic Eye(s): bilateral: Normal Inspection, PERRL, EOMI Oral Mucosa: Moist Neck: Normal Respiratory: Normal Breath Sounds, No Rales, No Rhonchi, No Wheezing Gastrointestinal/Abdominal: Normal Exam, Soft, No Tenderness, No Guarding, No Rebound Extremity: Normal ROM, No Pedal Edema, No Deformity Neurological/Psych: Other (Parkinsonian Tremors, Moves all extremities) ED Course And Treatment - Laboratory Results Result Diagrams: 08/20/17 15:54 08/20/17 15:54 O2 Sat by Pulse Oximetry: 97 - Radiology CXR: Interpreted by Me, Viewed By Me, Read By Radiologist CXR Interpretation: Yes: Other (No significant changes compared to prior.) Progress - Re-Evaluation Re-evaluation Note: 08/20/17 16:04 APEPARS COMFORTABLE NAD. RESULTS PENDING 08/20/17 17:04 EXAM UNCH PRIOR. FAMILY @ BEDSIDE. LABS NEG, H.H IMPROVED FROM PRIOR. NO S/S INFXN. FU PMD - Data Reviewed Data Reviewed: Lab, Diagnostic imaging, EKG, Old records Disposition Counseled Patient/Family Regarding: Studies Performed, Diagnosis, Need For Followup - Disposition Referrals: YOUR,PMD [Other] Disposition: HOME/ ROUTINE Disposition Time: 17:05 Condition: GOOD Instructions: Parkinson Disease (ED) Forms: [employer] ([place] Citizen) Print Language: ROMANSH - Clinical Impression Clinical Impression: Total body pain, Parkinson disease - Scribe Statement The provider has reviewed the documentation as recorded by the Scribe Saud Weathers Provider Attestation: All medical record entries made by the Scribe were at my direction and personally dictated by me. I have reviewed the chart and agree that the record accurately reflects my personal performance of the history, physical exam, medical decision making, and the department course for this patient. I have also personally directed, reviewed, and agree with the discharge instructions and disposition.
[2017-08-20] MEDS ORDERED: Sodium Chloride 0.9% 1,000 ML IV SCH (14:45)
[2017-08-20] MEDS ORDERED: Sodium Chloride 0.9% 1,000 ML ONE (15:51)
[2017-08-20 15:54] LABS: VENOUS BLOOD GAS BASE EXCESS -0.4 mmol/L (0.0-2.0); VENOUS BLOOD GAS PCO2 45 mmHg (40-60); VENOUS BLOOD PH 7.36 (7.32-7.43)
[2017-08-20 16:00] LABS: BASO % 0.2 % (0.0-2.0); EOS % 0.3 % (0.0-4.0); HEMATOCRIT 33.8 % (35.0-51.0); LYMPH % 11.1 % (20.0-40.0); MEAN CELL VOLUME 80.8 fL (80.0-94.0); MEAN CORPUSCULAR HEMOGLOBIN 26.9 pg (27.0-31.0); MEAN CORPUSCULAR HGB CONC 33.3 g/dL (33.0-37.0); MEAN PLATELET VOLUME 8.4 fL (7.2-11.7); MONO # 0.7 K/uL (0.0-0.8); MONO % 8.2 % (0.0-10.0); RED CELL DISTRIBUTION WIDTH 14.5 % (11.5-14.5)
[2017-08-20 16:02] LABS: WHITE BLOOD COUNT 9.1 K/uL (4.8-10.8)
[2017-08-20 16:09] LABS: CHLORIDE 102 mmol/L (98-107)
[2017-08-20 16:10] LABS: SODIUM 135 mmol/L (132-148)
[2017-08-20 16:11] LABS: RBC URINE < 1 /hpf (0-3); URINE BILIRUBIN NEGATIVE (NEGATIVE); URINE BLOOD NEGATIVE (NEGATIVE); URINE COLOR Yellow (YELLOW); URINE GLUCOSE (UA) 3+ mg/dL (Normal); URINE KETONE NEGATIVE (NEGATIVE); URINE LEUKOCYTE ESTERASE NEG Leu/uL (Negative); URINE UROBILINOGEN NORMAL mg/dL (0.2-1.0); WBC URINE < 1 /hpf (0-5)
[2017-08-20 16:12] LABS: BILIRUBIN,TOTAL 2.2 mg/dL (0.2-1.3); CARBON DIOXIDE 23 mmol/L (22-30); GFR AFRICAN-AMERICAN > 60
[2017-08-20 16:13] LABS: ALB/GLOB RATIO 1.1 (1.0-2.1); ALKALINE PHOSPHATASE 53 U/L (38-126); ALT/SGPT 15 U/L (21-72); AST/SGOT 18 U/L (17-59); BLOOD UREA NITROGEN 16 mg/dL (9-20); CALCIUM 8.5 mg/dl (8.6-10.4); GLUCOSE,RANDOM 216 mg/dL (75-110); TOTAL PROTEIN 7.1 g/dL (6.3-8.3)
[2017-08-20 16:18] LABS: URINE BACTERIA RARE (<OCC)
[2017-08-20 16:22] LABS: URINE PROTEIN TRACE mg/dL (NEGATIVE)
[2017-08-20 18:19] VITALS: BP 195/78; PULSE 69; RESP 20; TEMP 98.2
--- NOTE | 2017-08-20 18:41 | RAD ---
PROCEDURE: CHEST RADIOGRAPH, 1 VIEW HISTORY: SOB COMPARISON: Comparison is 04/01/2017 FINDINGS: LUNGS: Questionable small infiltrate at the right lower lung. Mild pulmonary vascular congestion. PLEURA: No pneumothorax or pleural fluid seen. CARDIOVASCULAR: The cardiac silhouette is enlarged. Again seen is left-sided pacemaker in place. OSSEOUS STRUCTURES: No significant abnormalities. VISUALIZED UPPER ABDOMEN: Normal. OTHER FINDINGS: None. IMPRESSION: Possible small infiltrate at the right lower lung. Mild pulmonary vascular congestion. Otherwise no interval change
[2017-08-21 10:21] VITALS: O2SAT 97
== END 2017-08-20 18:18 | disposition home or self-care (01) ==
LOC: C.ER 14:09
DX: R52 Pain, unspecified (principal); G20 Parkinson's disease
CPT/HCPCS: 71010; 80053; 81001; 82248; 82803; 85025; 85610; 85730; 86850; 86900; 87040; 99285; J7040

== ENCOUNTER 2018-05-19 00:04 | Inpatient (IN) | payer MEDICARE, MEDICAID ==
[2018-05-19 00:05] VITALS: BMI 27.1
[2018-05-19] MEDS ORDERED: Sodium Chloride 0.9% 1,000 ML IV ONE (00:13)
--- NOTE | 2018-05-19 00:15 | C.PDOC ---
"History Of Present Illness 82 year old male is brought to the ED by EMS for evaluation of generalized body pain. Patient's family reports patient was recently discharged from rehab. Patient is c/o left sided CP. Patient denies fever, chills, nausea, vomit, diarrhea, SOB. Chief Complaint (Nursing): Medical Clearance History Per: Patient, EMS, Family History/Exam Limitations: clinical condition Onset/Duration Of Symptoms: Hrs Current Symptoms Are (Timing): Still Present Recent travel outside of the [place]: No Additional History Per: Patient Past Medical History Reviewed: Historical Data, Nursing Documentation, Vital Signs Vital Signs: Last Vital Signs Temp 99.4 F 05/19/18 01:18 Pulse 82 05/19/18 03:42 Resp 19 05/19/18 03:42 BP 190/83 H 05/19/18 03:42 Pulse Ox 95 05/19/18 05:18 - Medical History PMH: Alzheimer's Disease, Arthritis, Asthma, CAD, Dementia, HTN, Hypercholesterolemia, Hyperlipidemia, Parkinson's Disease, Chronic Kidney Disease Denies: Diabetes, Hepatitis, HIV, Seizures, Sexually Transmitted Disease Surgical History: Coronary Stent, Pacemaker - [facility] Procedures TETANUS TOXOID ADMINIST (10/01/13) TRANSFUSE NONAUT RED BLOOD CELLS IN PERIPH VEIN, PERC (03/20/17) Family History: States: Unknown Family Hx - Social History Hx Tobacco Use: No Hx Alcohol Use: No Hx Substance Use: No - Immunization History Hx Tetanus Toxoid Vaccination: No Hx Influenza Vaccination: Yes Hx Pneumococcal Vaccination: No Review Of Systems Constitutional: Positive for: Malaise. Negative for: Fever, Chills Cardiovascular: Positive for: Chest Pain. Negative for: Palpitations Respiratory: Negative for: Cough, Shortness of Breath Gastrointestinal: Negative for: Nausea, Vomiting, Abdominal Pain Musculoskeletal: Negative for: Back Pain Neurological: Negative for: Weakness, Numbness Physical Exam - Physical Exam Appears: Non-toxic, Confused Skin: Normal Color, Warm, Dry Head: Atraumatic, Normacephalic Eye(s): bilateral: Normal Inspection Oral Mucosa: Dry Neck: Normal ROM, Supple Chest: Symmetrical Cardiovascular: Rhythm Regular Respiratory: Normal Breath Sounds, No Rales, No Rhonchi Gastrointestinal/Abdominal: Soft, No Tenderness, No Guarding, No Rebound Back: No Paraspinal Tenderness Extremity: Normal ROM, No Tenderness, Capillary Refill (< 2 seconds), No Swelling Neurological/Psych: Other (confused, B/L upper extremities tremors) Gait: Unable To Assess ED Course And Treatment - Laboratory Results Result Diagrams: 05/19/18 00:28 05/19/18 00:28 ECG: Interpreted By Me, Viewed By Me ECG Rhythm: A Paced ECG Interpretation: No Acute Changes Interpretation Of ECG: Atrial paced rhythm, QS IN INFERIOR LEADS, NO ACUTE CHANGES Rate From EC O2 Sat by Pulse Oximetry: 95 (ON RA) Pulse Ox Interpretation: Normal - CT Scan/US CTA chest Other Rad Studies (CT/US): Read By Radiologist, Radiology Report Reviewed CT/US Interpretation: EXAM: CT Angiography Chest With Intravenous Contrast. EXAM DATE/TIME: 05/19/2018 2:22 AM. CLINICAL HISTORY: 82 years old, male; Pain ; Chest pain; Prior surgery; Additional info: Chest pain/ elevated d-dimer. TECHNIQUE: Axial computed tomographic angiography images of the chest with intravenous contrast using CT. angiography protocol. All CT scans at this facility use at least one of these dose optimization techniques: automated. exposure control; mA and/or kV adjustment per patient size (includes targeted exams where dose is. matched to clinical indication); or iterative reconstruction. Coronal and sagittal reformatted images were created and reviewed. MIP reconstructed images were created and reviewed. CONTRAST: 100 ml of [id number] administered intravenously. COMPARISON: SD - CHEST PORTABLE 2015-10-25 13:37. FINDINGS: Tubes, lines and devices: Implantable cardiac leads are present. 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 No. pulmonary embolism. Aorta: The ascending aorta measures up to 4.1 cm in diameter. Other arteries: A large amount of vascular collaterals are seen in the upper thorax. A vascular. occlusion was be considered. Inferior vena cava: Reflux of contrast into the IVC is suggestive of right heart strain. Lungs: Normal. No consolidation. No masses. Pleural space: Small volume pleural effusions. Heart: Heavy atherosclerotic calcification of the coronary arteries. Small volume pericardial effusion. Small volume of pericardial fluid. OSIRIS ANGELES | Preliminary Radiology Report. CONFIDENTIALITY STATEMENT. This report is intended only for the use of the referring physician, and only in accordance with law, If you received this in error, call [phone]. Page 2 of 2. Bones/joints: Degenerative changes of the osseous structures. Soft tissues: Unremarkable. Lymph nodes: Prominent mediastinal lymph nodes measuring up to 1.3 cm in short axis diameter. in the right lower paratracheal region. Adrenals: Thickened adrenal glands. IMPRESSION: 1. Small volume pleural effusions. 2. Reflux of contrast into the IVC is suggestive of right heart strain. 3. Small volume pericardial effusion. 4. 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 5. Prominent mediastinal lymph nodes measuring up to 1.3 cm in short axis diameter in the right. lower paratracheal region. 6. No pulmonary embolism. Thank you for allowing us to participate in the care of your patient. Dictated and Authenticated by: Florentino Don MD. 05/19/2018 5:07 AM Eastern Time ([place] & [place]) Medical Decision Making Medical Decision Making: Plan: * EKG * LAbs * CXR * IV fluids Disposition Discussed With Dr.: Blair Zelaya Doctor Will See Patient In The: Hospital Counseled Patient/Family Regarding: Diagnosis - Disposition Disposition: HOSPITALIZED Disposition Time: 05:24 Condition: STABLE Forms: [facility] (Yi) - POA Present On Arrival: None - Clinical Impression Clinical Impression: Chest pain - Scribe Statement The provider has reviewed the documentation as recorded by the Scribe Blake Haines All medical record entries made by the Scribe were at my direction and personally dictated by me. I have reviewed the chart and agree that the record accurately reflects my personal performance of the history, physical exam, medical decision making, and the department course for this patient. I have also personally directed, reviewed, and agree with the discharge instructions and disposition."
[2018-05-19] MEDS ORDERED: Sodium Chloride 0.9% 1,000 ML ONE (00:24)
[2018-05-19 00:31] LABS: BASO % 0.4 % (0.0-2.0); EOS # 0.1 K/uL (0.0-0.7); EOS % 1.7 % (0.0-4.0); HEMOGLOBIN 11.3 g/dL (12.0-18.0); LYMPH # 1.2 K/uL (1.0-4.3); LYMPH % 17.7 % (20.0-40.0); MEAN CELL VOLUME 78.7 fL (80.0-94.0); MEAN CORPUSCULAR HEMOGLOBIN 26.4 pg (27.0-31.0); MEAN CORPUSCULAR HGB CONC 33.5 g/dL (33.0-37.0); MEAN PLATELET VOLUME 8.4 fL (7.2-11.7); MONO # 0.7 K/uL (0.0-0.8); MONO % 10.4 % (0.0-10.0); NEUT # 4.9 K/uL (1.8-7.0); NEUT % 69.8 % (50.0-75.0); RBC 4.29 Mil/uL (4.40-5.90); WHITE BLOOD COUNT 7.1 K/uL (4.8-10.8)
[2018-05-19 00:44] LABS: ALB/GLOB RATIO 1.3 (1.0-2.1); ALBUMIN 3.6 g/dL (3.5-5.0); ALT/SGPT 39 U/L (21-72); AST/SGOT 23 U/L (17-59); BLOOD UREA NITROGEN 15 mg/dL (9-20); CALCIUM 8.7 mg/dl (8.6-10.4); GFR AFRICAN-AMERICAN > 60; GFR NON-AFRICAN AMERICAN 58
[2018-05-19] MEDS ORDERED: Iodixanol 320 MG/ML 100 ML BOTTLE IV ONE (02:36)
[2018-05-19] MEDS: (Novolin R) Insulin Human Regular 100 units/ml vial SC SCH ×4 (07:50→21:59)
--- NOTE | 2018-05-19 08:24 | RAD ---
Date of service: 05/19/2018 PROCEDURE: CHEST RADIOGRAPH, 1 VIEW HISTORY: Chest pain COMPARISON: 08/20/2017. FINDINGS: LUNGS: The lungs are well inflated. There is mild pulmonary venous congestion. No focal consolidation. PLEURA: No pneumothorax or pleural fluid seen. CARDIOVASCULAR: There is severe cardiomegaly. Atherosclerotic aortic arch calcifications are present. . There is stable position of left-sided pacemaker. OSSEOUS STRUCTURES: No significant abnormalities. VISUALIZED UPPER ABDOMEN: Normal. OTHER FINDINGS: None. IMPRESSION: Severe cardiomegaly and mild pulmonary venous congestion. No active pulmonary disease.
--- NOTE | 2018-05-19 08:24 | CT ---
Date of service: 05/19/2018 PROCEDURE: CT Chest with contrast (Pulmonary Angiogram) HISTORY: chest pain/ elevated D-dimer COMPARISON: None available. TECHNIQUE: Axial computed tomography images were obtained of the chest in the pulmonary arterial phase of enhancement. Coronal and sagittal reformatted images were created and reviewed. Intravenous contrast dose: 100 cc Visipaque 320 Mean Hounsfield unit values in the main pulmonary artery: 224.34 Radiation dose: Total exam DLP = 564.25 mGy-cm. This CT exam was performed using one or more of the following dose reduction techniques: Automated exposure control, adjustment of the mA and/or kV according to patient size, and/or use of iterative reconstruction technique. FINDINGS: PULMONARY ARTERIES: Unremarkable. No pulmonary embolism. Dilated main pulmonary artery 3.6 cm consistent with pulmonary arterial hypertension. 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 LUNGS: Unremarkable. No nodule, mass or pulmonary consolidation. PLEURAL SPACES: Unremarkable. No effusion or pneumothorax. HEART: Unremarkable. No cardiomegaly. No significant pericardial effusion. Reflux of contrast into the IVC and hepatic veins. LYMPH NODES: No lymphadenopathy. BONES, CHEST WALL: Unremarkable. No fracture or destructive lesion OTHER FINDINGS: Unremarkable. IMPRESSION: Unremarkable CT pulmonary angiogram. No pulmonary embolus. Additional benign and/or incidental findings described above. Concordant results (preliminary interpretation) provided by [employer]. Procedure Completed: 03:12 Preliminary ([facility]) Report: Dictated and Authenticated: 05:07 Final Interpretation: 08:22
[2018-05-19 09:13] LABS: CK-MB 0.66 ng/mL (0.0-3.38)
--- NOTE | 2018-05-19 10:31 | CP.PCM.PN ---
Subjective - Date & Time of Evaluation Date of Evaluation: 05/19/18 Time of Evaluation: 10:31 - Subjective Subjective: Internal Medicine Progress Note: Patient seen and examined at bedside. Per nursing no acute events overnight. Patient was admitted yesterday for Left sided chest pain and generalized body aches. Per ED documentation patient was recently discharged from rehab. Patient currently admits to having a headache. CP improving. Denies dizziness, palpitations, sob, abdominal pain, urinary symptoms, changes in bowel habits. Objective - Vital Signs/Intake and Output Vital Signs (last 24 hours): Temp Pulse Resp BP Pulse Ox 98.0 F 78 20 205/89 H 96 05/19/18 10:15 05/19/18 10:15 05/19/18 10:15 05/19/18 10:15 05/19/18 10:15 - Medications Medications: Current Medications Amiodarone HCl (Cordarone) 200 mg PO DAILY [facility] Amlodipine Besylate (Norvasc) 10 mg PO DAILY [facility] Aspirin (Aspirin Chewable) 81 mg PO DAILY [facility] Carbidopa/Levodopa (Sinemet) 1 tab PO TID [facility] Carvedilol (Coreg) 6.25 mg PO BID [facility] Clonazepam (Klonopin) 1 mg PO Q4 PRN PRN Reason: Anxiety Clonidine HCl (Catapres-Tts2 0.2 Mg/24 Hr) 0.2 patch TD Q7D@1000 [facility] Docusate Sodium (Colace) 100 mg PO TID [facility] Enoxaparin Sodium (Lovenox) 40 mg SC DAILY [facility] Ferrous Sulfate (Feosol) 325 mg PO BID [facility] Finasteride (Proscar) 5 mg PO DAILY [facility] Furosemide (Lasix) 20 mg PO DAILY [facility] Hydralazine HCl (Apresoline) 10 mg IVP Q6H PRN PRN Reason: Systolic Blood Pressure Insulin Human Regular (Novolin R) 1 unit SC ACHS [facility] PRN Reason: Protocol Last Admin: 05/19/18 07:50 Dose: 2 units Lisinopril (Zestril) 10 mg PO DAILY [facility] Metoprolol Tartrate (Lopressor) 25 mg PO Q12 [facility] Quetiapine Fumarate (Seroquel) 25 mg PO HS [facility] Sucralfate (Carafate Tab) 1 gm PO QID [facility] Tamsulosin HCl (Flomax) 0.4 mg PO DAILY [facility] - Labs Labs: 05/19/18 00:28 05/19/18 00:28 Assessment and Plan - Assessment and Plan (Free Text) Assessment: A/P: Patient is a 82 year old male with past medical history of systolic CHF s/ p pacemaker, DM, HTN, CAD with stent placement, Parkinson's Disease presented to the ED for generalized body aches, left sided chest pain. Acute on Chronic Systolic Congestive Heart Failure -Stable, afebrile -Monitor on telemetry -Patient with pacemaker/AICD -Last echo 03/2017 showed moderately dilated LV, EF of 40-45%, mild to moderate pulmonary hypertension (see full report) -Repeat echo preliminary read showing EF 19%, official report pending -CXR showed severe cardiomegaly, mild pulmonary venous congestion, no active pulmonary disease -Cardiology on consult, help appreciated -Continue Lasix 20mg IVP daily, Coreg 6.25mg PO BID, Lisinopril 10mg PO daily -F/U Pro-BNP -Strict I/Os, daily weights -PT/OT evaluation ordered Elevated D Dimer -D-dimer on admission was 333 -CTA showed dilated main pulmonary artery 3.6cm c/w pulm arterial hypertension, mildy aneursymal ascending aorta 4.1cm, negative for PE Chest Pain r/o ACS -History of CAD s/p stent -Recieved ASA 162mg PO x 1 dose in the ED -Troponins negative x 2, third troponin pending -EKG showed atrial paced rhythm 60bpm, inferior-posterior infarct, age undetermined -Continue ASA 81mg PO daily -F/U HgA1C, TSH, Lipid panel -Cardiology on consult, help appreciated Hypercholesterolemia -F/U lipid panel -Patient appears to be on Lipitor at home -Must verify medications with pharmacy Hypertension -Continue Norvasc 10mg PO daily -Clonidine 0.2 patch Q7D -Lisinopril 10mg PO daily, Coreg 6.25mg PO BID -Monitor vitals Diabetes Mellitus -Insulin Sliding Scale ACHS -Accuchecks ACHS -F/U HgA1c History of Parkinson's Disease -Continue Carbidopa/Levodopa 1 tab PO TID -Continue Seroquel 25mg PO HS History of BPH -Continue Flomax 0.4mg PO daily -Continue Proscar 5mg PO daily History of Anemia, microcytic -Hgb 11.2 today, baseline - -Continue Ferrous sulfate 325mg PO BID -History of GI bleed in the past GI/DVT ppx: -Protonix 40mg IVP daily -Lovenox 40mg SC daily Case and Plan discussed with Dr Garcia Barber DO PGY-2
[2018-05-19] MEDS: Enoxaparin 40 mg Syringe SC SCH (10:37)
[2018-05-19 17:51] LABS: CK-MB 0.75 ng/mL (0.0-3.38)
[2018-05-19] MEDS ORDERED: QUEtiapine 12.5 MG TAB PO SCH (22:00)
[2018-05-20] MEDS: (Novolin R) Insulin Human Regular 100 units/ml vial SC SCH ×4 (08:30→21:38)
[2018-05-20] MEDS: Enoxaparin 40 mg Syringe SC SCH (09:23)
--- NOTE | 2018-05-21 07:23 | CP.PCM.CON ---
History of Present Illness - History of Present Illness History of Present Illness: 81 y/o male bangladeshi speaking with hx of dementia, CHF (Systolic) s/p AICD admitted for no specific CP Review of Systems - Review of Systems Systems not reviewed;Unavailable: Acuity of Condition - Constitutional Constitutional: absent: Headache - EENT Eyes: absent: Change in Vision Ears: absent: Ear Discharge Nose/Mouth/Throat: absent: Nasal Discharge - Cardiovascular Cardiovascular: Palpitations - Respiratory Respiratory: absent: Dyspnea on Exertion - Gastrointestinal Gastrointestinal: absent: Abdominal Pain - Genitourinary Genitourinary: Dysuria - Musculoskeletal Musculoskeletal: absent: Arthralgias - Integumentary Integumentary: absent: Bleeding Lesions - Neurological Neurological: absent: Abnormal Movements - Psychiatric Psychiatric: absent: Anxiety - Endocrine Endocrine: Fatigue Physical Exam - Constitutional Appears: Chronically Ill - Head Exam Head Exam: NORMOCEPHALIC - Eye Exam Eye Exam: Normal appearance - ENT Exam ENT Exam: Mucous Membranes Moist - Respiratory Exam Respiratory Exam: Rhonchi - Cardiovascular Exam Cardiovascular Exam: REGULAR RHYTHM - GI/Abdominal Exam GI & Abdominal Exam: Soft - Exam External exam: NORMAL EXTERNAL EXAM - Extremities Exam Extremities exam: Positive for: normal inspection - Neurological Exam Neurological exam: Alert - Psychiatric Exam Psychiatric exam: Agitated, Anxious Past Patient History - Past Medical History & Family History Past Medical History?: Yes - Past Social History Smoking Status: Never Smoked - CARDIAC Hx Hypercholesterolemia: Yes Hx Hypertension: Yes - PULMONARY Hx Asthma: Yes - NEUROLOGICAL Hx Alzheimer's Disease: Yes Hx Dementia: Yes Hx Parkinson's Disease: Yes Hx Seizures: No - RENAL Hx Chronic Kidney Disease: Yes - ENDOCRINE/METABOLIC Hx Diabetes Mellitus Type 2: Yes - HEMATOLOGICAL/ONCOLOGICAL Hx Human Immunodeficiency Virus (HIV): No - MUSCULOSKELETAL/RHEUMATOLOGICAL Hx Arthritis: Yes - GENITOURINARY/GYNECOLOGICAL Hx Sexually Transmitted Disorders: No - PSYCHIATRIC Hx Substance Use: No - SURGICAL HISTORY Hx Coronary Stent: Yes - ANESTHESIA Hx Anesthesia: Yes Hx Anesthesia Reactions: No Meds Allergies/Adverse Reactions: Allergies Allergy/AdvReac Type Severity Reaction Status Date / Time No Known Allergies Allergy Verified 05/19/18 00:09 - Medications Medications: Current Medications Acetaminophen (Tylenol 325mg Tab) 650 mg PO Q6 PRN PRN Reason: Headache Amiodarone HCl (Cordarone) 200 mg PO DAILY [facility] Last Admin: 05/20/18 09:27 Dose: 200 mg Amlodipine Besylate (Norvasc) 10 mg PO DAILY [facility] Last Admin: 05/20/18 09:27 Dose: 10 mg Aspirin (Aspirin Chewable) 81 mg PO DAILY [facility] Last Admin: 05/20/18 09:27 Dose: 81 mg Carbidopa/Levodopa (Sinemet) 1 tab PO TID [facility] Last Admin: 05/20/18 17:24 Dose: 1 tab Carvedilol (Coreg) 6.25 mg PO BID [facility] Last Admin: 05/20/18 17:23 Dose: 6.25 mg Clonazepam (Klonopin) 1 mg PO Q4 PRN PRN Reason: Anxiety Clonidine HCl (Catapres-Tts2 0.2 Mg/24 Hr) 0.2 patch TD Q7D@1000 [facility] Last Admin: 05/19/18 10:35 Dose: 0.2 patch Docusate Sodium (Colace) 100 mg PO TID [facility] Last Admin: 05/20/18 17:24 Dose: 100 mg Enoxaparin Sodium (Lovenox) 40 mg SC DAILY [facility] Last Admin: 05/20/18 09:23 Dose: 40 mg Ferrous Sulfate (Feosol) 325 mg PO BID [facility] Last Admin: 05/20/18 17:24 Dose: 325 mg Finasteride (Proscar) 5 mg PO DAILY [facility] Last Admin: 05/20/18 09:27 Dose: 5 mg Furosemide (Lasix) 20 mg IVP DAILY [facility] Last Admin: 05/20/18 09:24 Dose: 20 mg Hydralazine HCl (Apresoline) 10 mg IVP Q6H PRN PRN Reason: Systolic Blood Pressure Last Admin: 05/20/18 20:20 Dose: 10 mg Insulin Human Regular (Novolin R) 0 unit SC [facility] PRN Reason: Protocol Last Admin: 05/20/18 21:38 Dose: Not Given Lisinopril (Zestril) 10 mg PO DAILY [facility] Last Admin: 05/20/18 09:27 Dose: 10 mg Metoprolol Tartrate (Lopressor) 25 mg PO Q12 [facility] Last Admin: 05/20/18 21:59 Dose: 25 mg Quetiapine Fumarate (Seroquel) 25 mg PO HS [facility] Last Admin: 05/20/18 21:59 Dose: 25 mg Sucralfate (Carafate Tab) 1 gm PO QID [facility] Last Admin: 05/20/18 21:59 Dose: 1 gm Tamsulosin HCl (Flomax) 0.4 mg PO DAILY [facility] Last Admin: 05/20/18 09:27 Dose: 0.4 mg Results - Vital Signs Recent Vital Signs: Last Vital Signs Temp 98.1 F 05/20/18 23:00 Pulse 61 05/20/18 23:00 Resp 20 05/20/18 23:00 BP 143/64 05/20/18 23:00 Pulse Ox 96 05/20/18 23:00 - Labs Result Diagrams: 05/19/18 00:28 05/19/18 00:28 Labs: Laboratory Results - last 24 hr 05/20/18 05/20/18 05/20/18 11:33 16:23 21:14 POC Glucose (mg/dL) 226 H 199 H 186 H 05/21/18 06:27 POC Glucose (mg/dL) 190 H Assessment & Plan - Assessment and Plan (Free Text) Assessment: A/P: Patient is a 82 year old male with past medical history of systolic CHF s/ p pacemaker, DM, HTN, CAD with stent placement, Parkinson's Disease presented to the ED for generalized body aches, left sided chest pain. Acute on Chronic Systolic Congestive Heart Failure -Stable, afebrile -Monitor on telemetry -Patient with pacemaker/AICD -Last echo 03/2017 showed moderately dilated LV, EF of 40-45%, mild to moderate pulmonary hypertension (see full report) -Repeat echo preliminary read showing EF 19%, official report pending -CXR showed severe cardiomegaly, mild pulmonary venous congestion, no active pulmonary disease -Cardiology on consult, help appreciated -Continue Lasix 20mg IVP daily, Coreg 6.25mg PO BID, Lisinopril 10mg PO daily -F/U Pro-BNP -Strict I/Os, daily weights -PT/OT evaluation ordered Elevated D Dimer -D-dimer on admission was 333 -CTA showed dilated main pulmonary artery 3.6cm c/w pulm arterial hypertension, mildy aneursymal ascending aorta 4.1cm, negative for PE Chest Pain r/o ACS -History of CAD s/p stent -Recieved ASA 162mg PO x 1 dose in the ED -Troponins negative x 2, third troponin pending -EKG showed atrial paced rhythm 60bpm, inferior-posterior infarct, age undetermined -Continue ASA 81mg PO daily -F/U HgA1C, TSH, Lipid panel Hypercholesterolemia -F/U lipid panel -Patient appears to be on Lipitor at home -Must verify medications with pharmacy Hypertension -Continue Norvasc 10mg PO daily -Clonidine 0.2 patch Q7D -Lisinopril 10mg PO daily, Coreg 6.25mg PO BID -Monitor vitals Diabetes Mellitus -Insulin Sliding Scale ACHS -Accuchecks ACHS -F/U HgA1c History of Parkinson's Disease -Continue Carbidopa/Levodopa 1 tab PO TID -Continue Seroquel 25mg PO HS History of BPH -Continue Flomax 0.4mg PO daily -Continue Proscar 5mg PO daily History of Anemia, microcytic -Hgb 11.2 today, baseline 11-13 -Continue Ferrous sulfate 325mg PO BID -History of GI bleed in the past GI/DVT ppx: -Protonix 40mg IVP daily -Lovenox 40mg SC daily Chest pain most likley non cardiac Trops negative Continue current meds Pain meds PRN
[2018-05-21] MEDS: (Novolin R) Insulin Human Regular 100 units/ml vial SC SCH ×4 (08:30→21:41)
[2018-05-21] MEDS: Enoxaparin 40 mg Syringe SC SCH (09:45)
--- NOTE | 2018-05-21 14:04 | CARD ---
APPROVED REPORT Date of service: 05/19/2018 EXAM: Two-dimensional and M-mode echocardiogram with Doppler and color Doppler. INDICATION Dizziness and Vertigo CAD Chest Pain Syncope anemia Surgery/Intervention Pacemaker: RISK FACTORS Hypertension 2D DIMENSIONS IVSd1.2 (0.7-1.1cm)LVDd6.2 (3.9-5.9cm) PWd1.3 (0.7-1.1cm)LVDs5.7 (2.5-4.0cm) FS (%) 8.8 %LVEF (%)19.0 (>50%) M-Mode DIMENSIONS Left Atrium (MM)4.87 (2.5-4.0cm)IVSd1.30 (0.7-1.1cm) Aortic Root3.35 (2.2-3.7cm)LVDd7.34 (4.0-5.6cm) Aortic Cusp Exc.2.08 (1.5-2.0cm)PWd1.63 (0.7-1.1cm) FS (%) 18 %LVDs6.01 (2.0-3.8cm) LVEF (%)37 (>50%) Aortic Valve AI P 1/2 [id number] Mitral Valve MV E Lccdmjoe45.2cm/sMV A Vmqvrzzd21.1cm/sE/A ratio1.3 TDI E/Lateral E'0.0E/Medial E'0.0 Tricuspid Valve TR Peak [id number]/sTR Peak Gr.[id number] LEFT VENTRICLE The Left Ventricle is severely dilated. There is mild concentric left ventricular hypertrophy. The Ejection Fraction is 30-35%. There is global hypokinesis of the left ventricle. Transmitral Doppler flow pattern is Grade II-pseudonormal filling dynamics. The left atrial pressure is mildly elevated. moderately increased la volume index. RIGHT VENTRICLE The right ventricle is normal size. The right ventricular systolic function is normal. There is a pacemaker lead in the right ventricle. ATRIA The left atrium is moderately dilated. The right atrium size is normal. The interatrial septum is intact with no evidence for an atrial septal defect. AORTIC VALVE The aortic valve is mildly sclerotic. The aortic valve is trileaflet. There is mild aortic regurgitation. MITRAL VALVE The mitral valve is mildly thickened. Mitral regurgitation is moderate to severe. TRICUSPID VALVE The tricuspid valve is normal in structure. There is mild to moderate tricuspid regurgitation. Right ventricular systolic pressure is estimated at 54 mmHg. There is moderate pulmonary hypertension. PULMONIC VALVE The pulmonary valve is normal in structure. There is mild pulmonic valvular regurgitation. GREAT VESSELS The aortic root is normal in size. The IVC is normal in size and collapses >50% with inspiration. PERICARDIAL EFFUSION small posterior pericardial effusion seen. <Conclusion> The Left Ventricle is severely dilated. There is mild concentric left ventricular hypertrophy. The Ejection Fraction is 30-35%. There is global hypokinesis of the left ventricle. Transmitral Doppler flow pattern is Grade II-pseudonormal filling dynamics. The left atrial pressure is mildly elevated. moderately increased la volume index. There is a pacemaker lead in the right ventricle. The left atrium is moderately dilated. There is mild aortic regurgitation. Mitral regurgitation is moderate to severe. There is mild to moderate tricuspid regurgitation. Right ventricular systolic pressure is estimated at 54 mmHg. There is moderate pulmonary hypertension. small posterior pericardial effusion seen.
--- NOTE | 2018-05-21 23:10 | CP.PCM.PN ---
Subjective - Date & Time of Evaluation Date of Evaluation: 05/21/18 Time of Evaluation: 09:30 - Subjective Subjective: Patient seen and evaluated in am Not in distress No cardiac events noted Objective - Vital Signs/Intake and Output Vital Signs (last 24 hours): Temp Pulse Resp BP Pulse Ox 97.4 F L 60 20 143/64 95 05/21/18 15:13 05/21/18 22:00 05/21/18 15:13 05/21/18 22:00 05/21/18 15:13 Intake and Output: 05/21/18 05/22/18 18:59 06:59 Intake Total 300 240 Output Total 550 Balance -250 240 - Medications Medications: Current Medications Acetaminophen (Tylenol 325mg Tab) 650 mg PO Q6 PRN PRN Reason: Headache Amiodarone HCl (Cordarone) 200 mg PO DAILY [facility] Last Admin: 05/21/18 09:47 Dose: 200 mg Amlodipine Besylate (Norvasc) 10 mg PO DAILY [facility] Last Admin: 05/21/18 09:47 Dose: 10 mg Aspirin (Aspirin Chewable) 81 mg PO DAILY [facility] Last Admin: 05/21/18 09:46 Dose: 81 mg Carbidopa/Levodopa (Sinemet) 1 tab PO TID [facility] Last Admin: 05/21/18 17:36 Dose: 1 tab Carvedilol (Coreg) 6.25 mg PO BID [facility] Last Admin: 05/21/18 17:35 Dose: 6.25 mg Clonazepam (Klonopin) 1 mg PO Q4 PRN PRN Reason: Anxiety Clonidine HCl (Catapres-Tts2 0.2 Mg/24 Hr) 0.2 patch TD Q7D@1000 [facility] Last Admin: 05/19/18 10:35 Dose: 0.2 patch Docusate Sodium (Colace) 100 mg PO TID [facility] Last Admin: 05/21/18 17:35 Dose: 100 mg Enoxaparin Sodium (Lovenox) 40 mg SC DAILY [facility] Last Admin: 05/21/18 09:45 Dose: 40 mg Ferrous Sulfate (Feosol) 325 mg PO BID [facility] Last Admin: 05/21/18 17:36 Dose: 325 mg Finasteride (Proscar) 5 mg PO DAILY [facility] Last Admin: 05/21/18 09:47 Dose: 5 mg Furosemide (Lasix) 20 mg IVP DAILY [facility] Last Admin: 05/21/18 09:44 Dose: 20 mg Hydralazine HCl (Apresoline) 10 mg IVP Q6H PRN PRN Reason: Systolic Blood Pressure Last Admin: 05/21/18 09:41 Dose: 10 mg Insulin Human Regular (Novolin R) 0 unit SC ACHS [facility] PRN Reason: Protocol Last Admin: 05/21/18 21:41 Dose: Not Given Lisinopril (Zestril) 10 mg PO DAILY [facility] Last Admin: 05/21/18 09:47 Dose: 10 mg Metoprolol Tartrate (Lopressor) 25 mg PO Q12 [facility] Last Admin: 05/21/18 21:43 Dose: 25 mg Quetiapine Fumarate (Seroquel) 25 mg PO HS [facility] Last Admin: 05/21/18 21:43 Dose: 25 mg Sucralfate (Carafate Tab) 1 gm PO QID [facility] Last Admin: 05/21/18 21:43 Dose: 1 gm Tamsulosin HCl (Flomax) 0.4 mg PO DAILY [facility] Last Admin: 05/21/18 09:47 Dose: 0.4 mg - Labs Labs: 05/19/18 00:28 05/19/18 00:28
--- NOTE | 2018-05-22 07:05 | HP ---
HISTORY OF PRESENT ILLNESS: Mr. Ruggiero is an 82-year-old man, admitting to the hospital complaining of chest pain, shortness of breath. The patient came to the ER, advised admission. He has history of heart disease, history of pacemaker. PHYSICAL EXAMINATION: GENERAL: The patient is awake, alert, VITAL SIGNS: Temperature 98, pulse 70, blood pressure 120/70. HEENT: Within normal limits. NECK: Supple. CHEST: Symmetrical. HEART: Regular. ABDOMEN: Soft. EXTREMITIES: No edema. IMPRESSION AND PLAN: The patient suffers from . The patient to bed rest, supportive care. Cardiology evaluation. Blair Zelaya MD
--- NOTE | 2018-05-22 07:07 | PN ---
DATE: 05/21/2018 The patient get supportive care. Oxygen as per gut dropper. Blair Zelaya MD
[2018-05-22 08:16] VITALS: RESP 20
[2018-05-22] MEDS: (Novolin R) Insulin Human Regular 100 units/ml vial SC SCH ×3 (09:02→16:48)
[2018-05-22] MEDS: Enoxaparin 40 mg Syringe SC SCH (10:09)
--- NOTE | 2018-05-22 12:46 | CP.PCM.DIS ---
Provider - Provider Date of Admission: 05/19/18 05:25 Attending physician: Blair Zelaya MD Time Spent in preparation of Discharge (in minutes): 45 Hospital Course - Lab Results Lab Results: Most Recent Lab Values WBC 7.1 K/uL (4.8-10.8) 05/19/18 00:28 RBC 4.29 Mil/uL (4.40-5.90) L 05/19/18 00:28 Hgb 11.3 g/dL (12.0-18.0) L 05/19/18 00:28 Hct 33.8 % (35.0-51.0) L 05/19/18 00:28 MCV 78.7 fL (80.0-94.0) L D 05/19/18 00:28 MCH 26.4 pg (27.0-31.0) L 05/19/18 00:28 MCHC 33.5 g/dL (33.0-37.0) 05/19/18 00: RDW 16.0 % (11.5-14.5) H 05/19/18 00:28 Plt Count 251 K/uL (130-400) 05/19/18 00:28 MPV 8.4 fL (7.2-11.7) 05/19/18 00:28 Neut % (Auto) 69.8 % (50.0-75.0) 05/19/18 00:28 Lymph % (Auto) 17.7 % (20.0-40.0) L 05/19/18 00:28 [place] % (Auto) 10.4 % (0.0-10.0) H 05/19/18 00:28 Eos % (Auto) 1.7 % (0.0-4.0) 05/19/18 00:28 Baso % (Auto) 0.4 % (0.0-2.0) 05/19/18 00:28 Neut # (Auto) 4.9 K/uL (1.8-7.0) 05/19/18 00:28 Lymph # (Auto) 1.2 K/uL (1.0-4.3) 05/19/18 00:28 [place] # (Auto) 0.7 K/uL (0.0-0.8) 05/19/18 00:28 Eos # (Auto) 0.1 K/uL (0.0-0.7) 05/19/18 00:28 Baso # (Auto) 0.0 K/uL (0.0-0.2) 05/19/18 00:28 D-Dimer, Quantitative 333 ng/mlDDU (0-243) H 05/19/18 00:28 Sodium 144 mmol/L (132-148) 05/19/18 00:28 Potassium 4.0 mmol/L (3.6-5.2) 05/19/18 00:28 Chloride 107 mmol/L (98-107) 05/19/18 00:28 Carbon Dioxide 26 mmol/L (22-30) 05/19/18 00:28 Anion Gap 14 (10-20) 05/19/18 00:28 BUN 15 mg/dL (9-20) 05/19/18 00:28 Creatinine 1.2 mg/dL (0.8-1.5) 05/19/18 00:28 Est GFR ( Amer) > 60 05/19/18 00:28 Est GFR (Non-Af Amer) 58 05/19/18 00:28 POC Glucose (mg/dL) 256 mg/dL (65-110) H 05/22/18 12:15 Random Glucose 215 mg/dL (75-110) H 05/19/18 00:28 Calcium 8.7 mg/dl (8.6-10.4) 05/19/18 00:28 Total Bilirubin 1.6 mg/dL (0.2-1.3) H 05/19/18 00:28 AST 23 U/L (17-59) 05/19/18 00:28 ALT 39 U/L (21-72) 05/19/18 00:28 Alkaline Phosphatase 55 U/L (38-126) 05/19/18 00:28 Total Creatine Kinase 48 U/L (55-170) L 05/19/18 16:59 CK-MB (Mass) 0.75 ng/mL (0.0-3.38) 05/19/18 16:59 Troponin I < 0.0120 ng/mL (0.00-0.120) 05/19/18 16:59 Total Protein 6.5 g/dL (6.3-8.3) 05/19/18 00:28 Albumin 3.6 g/dL (3.5-5.0) 05/19/18 00:28 Globulin 2.8 gm/dL (2.2-3.9) 05/19/18 00:28 Albumin/Globulin Ratio 1.3 (1.0-2.1) 05/19/18 00:28 - Hospital Course Hospital Course: Patient is an 81 year old male, with PMHx of diabetes, hypertension, hypercholesterolemia, arthritis, CAD and Parkinson's disease brought to ED by BLS. He is was complaining of left sided chest pain for a couple of days.. Patient is a poor historian, and is oriented to person and place, but not time or context. He denies abdominal pain, nausea, vomiting, diarrhea, urinary symptoms, subjective fever, or chills. Will reach out to daughter for further history in AM. PMHx: see above PSHx: pacemaker placement, coronary stent Family Hx: denies Allergies: NKA PMD: unknown Pharmacy: [facility] Hospital Course: While admitted the patient was seen had blood work done including troponins that were negative times three. The patient also had an echo done that showed a decrease in EF. While admitted the patient had an elevated d-dimer and subsequently had a CTA that was negative for PE. Patient was seen by Cardiology who determined it was less likely cardiac in nature and no further intervention was warranted at this time. Patient was seen and determined stable for discharge. Imagin.Echocardiogram: EF 19% 2. CTA: showed mild pulmonary artery 3.6cm c/w pulmonary arterial hypertension, mildly aneursymal ascending aorta 4.1 cm, negative for PE Discharge Instructions :1. Advised patient to follow up with PMD within 5 to 7 days after discharge. 2. Advised patient to take medications as prescribed. 3.Advised patient to return to hospital for any new or worsening symptoms Discharge Medications: 1.Amiodarone 200mg PO Daily 2.Norvasc 10mg PO DAILY 3.Aspirin 81mg PO Daily 4.Carbidopa/Levodopa 1 tab PO TID 5.Coreg 6.25mg PO BID 6.Klonipin 1mg PO Q4 PRN 7.Clonidine .2 patch TD Q7D 8.Colace 100mg PO TID 9.Ferrous sulfate 325mg PO BID 10.Proscar 5mg PO Daily Discharge Exam - Head Exam Head Exam: NORMAL INSPECTION, NORMOCEPHALIC - Eye Exam Eye Exam: EOMI, Normal appearance, PERRL Pupil Exam: NORMAL ACCOMODATION, PERRL. absent: Irregular, Unequal - ENT Exam ENT Exam: Mucous Membranes Moist, Normal Oropharynx - Respiratory Exam Respiratory Exam: Clear to PA & Lateral, UNREMARKABLE - Cardiovascular Exam Cardiovascular Exam: REGULAR RHYTHM, +S1, +S2 - GI/Abdominal Exam GI & Abdominal Exam: Normal Bowel Sounds, Unremarkable - Neurological Exam Neurological exam: Alert, CN II-XII Intact, Oriented x3 - Psychiatric Exam Psychiatric exam: Normal Affect - Skin Skin Exam: Dry, Intact Discharge Plan - Discharge Medications Prescriptions: Amiodarone [Cordarone] 200 mg PO DAILY #30 tab amLODIPine [Norvasc] 10 mg PO DAILY #30 tab Aspirin [Ecotrin] 81 mg PO DAILY #30 tablet. Carbidopa/Levodopa [Carbidopa-Levodopa 10-100 Tab] 1 each PO TID #60 tablet Carvedilol [Coreg] 6.25 mg PO BID #60 tablet cloNIDine 0.2 mg/24 hr [catapres-TTS2 0.2 mg/24 hr] 0.2 mg TD Q7D #30 patch Docusate [Colace] 100 mg PO TID #60 cap Ferrous Sulfate [Feosol] 325 mg PO BID #60 tab Finasteride [Proscar] 5 mg PO DAILY #30 tab - Follow Up Plan Condition: STABLE Disposition: HOME/ ROUTINE Instructions: Chest Pain (DC) Referrals: Breezy Garcia MD [Staff Provider] - Blair Zelaya MD [Staff Provider] -
--- NOTE | 2018-05-22 14:29 | CP.PCM.PN ---
<Cecilia Fowler - Last Filed: 05/22/18 15:25> Subjective - Date & Time of Evaluation Date of Evaluation: 05/22/18 Time of Evaluation: 12:30 - Subjective Subjective: PGY2- Progress Note for Dr. Garcia Patient seen and examined at bedside. Patient denies any chest pain, shortness of breath, abdominal pain, nausea, vomiting, constipation, or diarrhea. Objective - Vital Signs/Intake and Output Vital Signs (last 24 hours): Temp Pulse Resp BP Pulse Ox 97.4 F L 63 20 165/75 H 96 05/22/18 07:00 05/22/18 07:00 05/22/18 07:00 05/22/18 10:08 05/22/18 07:00 Intake and Output: 05/22/18 05/22/18 06:59 18:59 Intake Total 240 Output Total 550 Balance -310 - Medications Medications: Current Medications Acetaminophen (Tylenol 325mg Tab) 650 mg PO Q6 PRN PRN Reason: Headache Amiodarone HCl (Cordarone) 200 mg PO DAILY [facility] Last Admin: 05/22/18 10:08 Dose: 200 mg Amlodipine Besylate (Norvasc) 10 mg PO DAILY [facility] Last Admin: 05/22/18 10:09 Dose: 10 mg Aspirin (Aspirin Chewable) 81 mg PO DAILY [facility] Last Admin: 05/22/18 10:08 Dose: 81 mg Carbidopa/Levodopa (Sinemet) 1 tab PO TID [facility] Last Admin: 05/22/18 13:23 Dose: 1 tab Carvedilol (Coreg) 6.25 mg PO BID [facility] Last Admin: 05/22/18 10:09 Dose: 6.25 mg Clonazepam (Klonopin) 1 mg PO Q4 PRN PRN Reason: Anxiety Clonidine HCl (Catapres-Tts2 0.2 Mg/24 Hr) 0.2 patch TD Q7D@1000 [facility] Last Admin: 05/19/18 10:35 Dose: 0.2 patch Docusate Sodium (Colace) 100 mg PO TID [facility] Last Admin: 05/22/18 13:23 Dose: 100 mg Enoxaparin Sodium (Lovenox) 40 mg SC DAILY [facility] Last Admin: 05/22/18 10:09 Dose: 40 mg Ferrous Sulfate (Feosol) 325 mg PO BID [facility] Last Admin: 05/22/18 10:08 Dose: 325 mg Finasteride (Proscar) 5 mg PO DAILY [facility] Last Admin: 05/22/18 10:08 Dose: 5 mg Furosemide (Lasix) 20 mg IVP DAILY [facility] Last Admin: 05/22/18 10:08 Dose: 20 mg Hydralazine HCl (Apresoline) 10 mg IVP Q6H PRN PRN Reason: Systolic Blood Pressure Last Admin: 05/21/18 09:41 Dose: 10 mg Insulin Human Regular (Novolin R) 0 unit SC ACHS [facility] PRN Reason: Protocol Last Admin: 05/22/18 12:30 Dose: 4 units Lisinopril (Zestril) 10 mg PO DAILY [facility] Last Admin: 05/22/18 10:08 Dose: 10 mg Metoprolol Tartrate (Lopressor) 25 mg PO Q12 [facility] Last Admin: 05/22/18 10:08 Dose: 25 mg Quetiapine Fumarate (Seroquel) 25 mg PO HS [facility] Last Admin: 05/21/18 21:43 Dose: 25 mg Sucralfate (Carafate Tab) 1 gm PO QID [facility] Last Admin: 05/22/18 13:23 Dose: 1 gm Tamsulosin HCl (Flomax) 0.4 mg PO DAILY [facility] Last Admin: 05/22/18 10:08 Dose: 0.4 mg - Labs Labs: 05/19/18 00:28 05/19/18 00:28 - Constitutional Appears: Non-toxic, No Acute Distress - Head Exam Head Exam: ATRAUMATIC, NORMAL INSPECTION, NORMOCEPHALIC - Eye Exam Eye Exam: EOMI, Normal appearance - ENT Exam ENT Exam: Mucous Membranes Moist - Respiratory Exam Respiratory Exam: Clear to Ausculation Bilateral, NORMAL BREATHING PATTERN - Cardiovascular Exam Cardiovascular Exam: REGULAR RHYTHM, RRR, +S1, +S2 - GI/Abdominal Exam GI & Abdominal Exam: Soft, Normal Bowel Sounds. absent: Tenderness - Extremities Exam Extremities Exam: Full ROM, Normal Inspection. absent: Pedal Edema - Neurological Exam Neurological Exam: Alert, Awake, Oriented x3 - Psychiatric Exam Psychiatric exam: Normal Affect, Normal Mood - Skin Skin Exam: Intact, Normal Color, Warm Assessment and Plan - Assessment and Plan (Free Text) Assessment: Acute on Chronic Systolic Congestive Heart Failure -Stable, afebrile -Monitor on telemetry -Patient with pacemaker/AICD -Last echo 03/2017 showed moderately dilated LV, EF of 40-45%, mild to moderate pulmonary hypertension (see full report) -ECHO 05/19/18: EF 30-35%, grade II pseudonormal filling dynamics, moderate pulm htn, small posterior pericardial effusion -CXR showed severe cardiomegaly, mild pulmonary venous congestion, no active pulmonary disease -Continue Lasix 20mg IVP daily, Coreg 6.25mg PO BID, Lisinopril 10mg PO daily Elevated D Dimer -D-dimer on admission was 333 -CTA showed dilated main pulmonary artery 3.6cm c/w pulm arterial hypertension, mildy aneursymal ascending aorta 4.1cm, negative for PE Chest Pain r/o ACS -History of CAD s/p stent -Recieved ASA 162mg PO x 1 dose in the ED -Troponins negative x 3 -EKG showed atrial paced rhythm 60bpm, inferior-posterior infarct, age undetermined -Continue ASA 81mg PO daily Hypertension -Continue Norvasc 10mg PO daily -Clonidine 0.2 patch Q7D -Lisinopril 10mg PO daily, Coreg 6.25mg PO BID -Monitor vitals discussed with Dr. Garcia, will need to continue medical management as an outpatient <Breezy Garcia - Last Filed: 05/23/18 00:11> Objective - Vital Signs/Intake and Output Vital Signs (last 24 hours): Temp Pulse Resp BP Pulse Ox 97.2 F L 60 20 156/95 H 95 05/22/18 15:36 05/22/18 15:36 05/22/18 15:36 05/22/18 15:36 05/22/18 15:36 Intake and Output: 05/22/18 05/23/18 18:59 06:59 Intake Total 400 Output Total 800 Balance -400 - Labs Labs: 05/19/18 00:28 05/19/18 00:28 Assessment and Plan - Assessment and Plan (Free Text) Assessment: Patient seen and evaluated personally by me Plan of care d/w the medical records custodian and as documented
[2018-05-22 15:38] VITALS: BP 156/95; PULSE 60; TEMP 97.2; O2SAT 95
--- NOTE | 2018-05-23 07:13 | CARD ---
APPROVED REPORT Date of service: 05/19/2018 EKG Measurement Heart [id number] <Conclusion> Atrial-paced rhythm Left axis deviation Inferior-posterior infarct, age undetermined Abnormal ECG
== END 2018-05-22 20:49 | disposition home or self-care (01) | DRG 291 ==
LOC: C.ER 00:04 → C.9E 05:25 → C.5S 09:58
PROVIDERS: ADMIT Internal Medicine Pulmonary Disease; ATTEND Internal Medicine Pulmonary Disease
DX: I13.0 Hypertensive heart and chronic kidney disease with heart failure and stage 1 through stage 4 chronic kidney disease, or unspecified chronic kidney disease (principal); I50.23 Acute on chronic systolic (congestive) heart failure; R07.89 Other chest pain; J45.909 Unspecified asthma, uncomplicated; N18.9 Chronic kidney disease, unspecified; N40.0 Benign prostatic hyperplasia without lower urinary tract symptoms; R79.1 Abnormal coagulation profile; I27.21 Secondary pulmonary arterial hypertension; I25.10 Atherosclerotic heart disease of native coronary artery without angina pectoris; G30.9 Alzheimer's disease, unspecified; G20 Parkinson's disease; F02.80 Dementia in other diseases classified elsewhere, unspecified severity, without behavioral disturbance, psychotic disturbance, mood disturbance, and anxiety; E78.5 Hyperlipidemia, unspecified; E78.00 Pure hypercholesterolemia, unspecified; E11.22 Type 2 diabetes mellitus with diabetic chronic kidney disease; Z79.82 Long term (current) use of aspirin; Z95.810 Presence of automatic (implantable) cardiac defibrillator; Z79.899 Other long term (current) drug therapy; Z95.5 Presence of coronary angioplasty implant and graft

== ENCOUNTER 2018-06-10 19:47 | Inpatient (IN) | payer MEDICARE, MEDICAID ==
[2018-06-10 19:48] VITALS: BMI 27.1
[2018-06-10 20:46] LABS: BASO % 0.3 % (0.0-2.0); EOS # 0.1 K/uL (0.0-0.7); HEMOGLOBIN 12.8 g/dL (12.0-18.0); LYMPH # 1.2 K/uL (1.0-4.3); LYMPH % 16.3 % (20.0-40.0); MEAN CELL VOLUME 79.5 fL (80.0-94.0); MEAN CORPUSCULAR HEMOGLOBIN 26.2 pg (27.0-31.0); MEAN CORPUSCULAR HGB CONC 32.9 g/dL (33.0-37.0); MEAN PLATELET VOLUME 8.1 fL (7.2-11.7); MONO # 0.5 K/uL (0.0-0.8); MONO % 7.3 % (0.0-10.0); NEUT # 5.6 K/uL (1.8-7.0); NEUT % 75.1 % (50.0-75.0); NRBC % 0.1 % (0.0-2.0); RBC 4.89 Mil/uL (4.40-5.90); RED CELL DISTRIBUTION WIDTH 16.3 % (11.5-14.5); WHITE BLOOD COUNT 7.4 K/uL (4.8-10.8)
[2018-06-10 21:02] LABS: ALB/GLOB RATIO 1.2 (1.0-2.1); ALBUMIN 3.6 g/dL (3.5-5.0); ALT/SGPT 21 U/L (21-72); AST/SGOT 17 U/L (17-59); BLOOD UREA NITROGEN 14 mg/dL (9-20); CALCIUM 9.1 mg/dl (8.6-10.4); GFR AFRICAN-AMERICAN > 60; GFR NON-AFRICAN AMERICAN > 60; LIPASE 72 U/L (23-300)
[2018-06-10 21:10] LABS: URINE BACTERIA OCC (<OCC); URINE BILIRUBIN NEGATIVE (NEGATIVE); URINE BLOOD NEGATIVE (NEGATIVE); URINE CLARITY Clear (Clear); URINE COLOR Yellow (YELLOW); URINE GLUCOSE (UA) NORMAL (Normal); URINE LEUKOCYTE ESTERASE NEG Leu/uL (Negative); URINE PROTEIN NEGATIVE (NEGATIVE)
[2018-06-10 21:12] LABS: B-TYPE NATRIURETIC PEPTIDE 2700 pg/mL (0-900); CK-MB 1.02 ng/mL (0.0-3.38)
--- NOTE | 2018-06-10 21:30 | C.PDOC ---
History Of Present Illness Pt states he feels generalized body pain and generalized weakness. He states that he is unable to walk. Time Seen by Provider: 06/10/18 20:12 Chief Complaint (Nursing): Medical Clearance History Per: Patient, EMS History/Exam Limitations: clinical condition Onset/Duration Of Symptoms: Days Current Symptoms Are (Timing): Worse Current Symptoms: Generalized weakness Severity: Severe Additional History Per: Prior Records - Symptoms Of CVA Recent Head Trauma: No Past Medical History Reviewed: Historical Data, Nursing Documentation, Vital Signs Vital Signs: Last Vital Signs Temp 97.8 F 06/10/18 20:02 Pulse 64 06/10/18 20:02 Resp 19 06/10/18 20:02 BP 166/74 H 06/10/18 20:02 Pulse Ox 97 06/10/18 20:02 - Medical History PMH: Alzheimer's Disease, Arthritis, Asthma, CAD, CHF, Dementia, Diabetes, HTN, Hypercholesterolemia, Hyperlipidemia, Parkinson's Disease, Chronic Kidney Disease Surgical History: Coronary Stent, Pacemaker - [facility] Procedures TETANUS TOXOID ADMINIST (10/01/13) TRANSFUSE NONAUT RED BLOOD CELLS IN PERIPH VEIN, PERC (03/20/17) Family History: States: Unknown Family Hx - Social History Hx Tobacco Use: No Hx Alcohol Use: No Hx Substance Use: No - Immunization History Hx Tetanus Toxoid Vaccination: No Hx Influenza Vaccination: Yes Hx Pneumococcal Vaccination: No Review Of Systems Constitutional: Positive for: Weakness, Malaise. Negative for: Fever Respiratory: Positive for: Shortness of Breath Gastrointestinal: Negative for: Vomiting, Diarrhea Neurological: Negative for: Seizures Physical Exam - Physical Exam Appears: No Acute Distress, Chronically Ill Skin: Normal Color, Warm, Dry Head: Atraumatic Eye(s): bilateral: PERRL Neck: Normal ROM, No Step Off Deformity, Supple Chest: Other (Pacemaker in place) Cardiovascular: Rhythm Regular Respiratory: Normal Breath Sounds, No Accessory Muscle Use Gastrointestinal/Abdominal: Soft Extremity: No Deformity Neurological/Psych: Other (Moving all extremities, but generally weak. ) Gait: Unable To Assess ED Course And Treatment - Laboratory Results Result Diagrams: 06/10/18 20:39 06/10/18 20:39 ECG: Interpreted By Me, Viewed By Me ECG Rhythm: A Paced, Nonspecific Changes Rate From EC O2 Sat by Pulse Oximetry: 97 Pulse Ox Interpretation: Normal - Radiology CXR: Interpreted by Me, Viewed By Me CXR Interpretation: Yes: Cardiomegaly Disposition Discussed With Dr.: Dmitriy Lora Comment: He accepted pt on his service. Doctor Will See Patient In The: Hospital Counseled Patient/Family Regarding: Studies Performed, Diagnosis - Disposition Disposition: HOSPITALIZED Disposition Time: 21:31 Condition: FAIR - Clinical Impression Clinical Impression: Generalized weakness, Inability to walk
[2018-06-11 00:19] VITALS: RESP 20
--- NOTE | 2018-06-11 00:19 | CP.PCM.HP ---
History of Present Illness - History of Present Illness History of Present Illness: History Of Present Illness Pt states he feels generalized body pain and generalized weakness. He states that he is unable to walk. Past Patient History - Infectious Disease Hx of Infectious Diseases: None - Past Medical History & Family History Past Medical History?: Yes - Past Social History Smoking Status: Never Smoked - CARDIAC Hx Congestive Heart Failure: Yes Hx Hypercholesterolemia: Yes Hx Hypertension: Yes Hx Pacemaker: Yes - PULMONARY Hx Asthma: Yes - NEUROLOGICAL Hx Alzheimer's Disease: Yes Hx Dementia: Yes Hx Parkinson's Disease: Yes - RENAL Hx Chronic Kidney Disease: Yes - ENDOCRINE/METABOLIC Hx Diabetes Mellitus Type 2: Yes - MUSCULOSKELETAL/RHEUMATOLOGICAL Hx Falls: No - GENITOURINARY/GYNECOLOGICAL Hx Sexually Transmitted Disorders: No - PSYCHIATRIC Hx Substance Use: No - SURGICAL HISTORY Hx Coronary Stent: Yes - ANESTHESIA Hx Anesthesia: Yes Hx Anesthesia Reactions: No Meds Allergies/Adverse Reactions: Allergies Allergy/AdvReac Type Severity Reaction Status Date / Time No Known Allergies Allergy Verified 06/10/18 20:07 Results - Vital Signs Recent Vital Signs: Last Vital Signs Temp 99 F 06/10/18 23:02 Pulse 68 06/10/18 23:02 Resp 18 06/10/18 23:02 BP 157/68 H 06/10/18 23:02 Pulse Ox 99 06/10/18 23:02 - Labs Result Diagrams: 06/10/18 20:39 06/10/18 20:39 Labs: Laboratory Results - last 24 hr 06/10/18 06/10/18 06/10/18 20:39 20:39 21:01 WBC 7.4 RBC 4.89 Hgb 12.8 Hct 38.9 MCV 79.5 L MCH 26.2 L MCHC 32.9 L RDW 16.3 H Plt Count 303 MPV 8.1 Neut % (Auto) 75.1 H Lymph % (Auto) 16.3 L [place] % (Auto) 7.3 Eos % (Auto) 1.0 Baso % (Auto) 0.3 Neut # (Auto) 5.6 Lymph # (Auto) 1.2 [place] # (Auto) 0.5 Eos # (Auto) 0.1 Baso # (Auto) 0.0 Sodium 141 Potassium 4.8 Chloride 102 Carbon Dioxide 28 Anion Gap 16 BUN 14 Creatinine 1.1 Est GFR ( Amer) > 60 Est GFR (Non-Af Amer) > 60 Random Glucose 208 H Calcium 9.1 Total Bilirubin 1.0 AST 17 D ALT 21 D Alkaline Phosphatase 64 Total Creatine Kinase 42 L CK-MB (Mass) 1.02 Troponin I < 0.0120 NT-Pro-B Natriuret Pep 2700 H Total Protein 6.5 Albumin 3.6 Globulin 2.9 Albumin/Globulin Ratio 1.2 Lipase 72 Urine Color Yellow Urine Clarity Clear Urine pH 5.0 Ur Specific [place] 1.012 Urine Protein Negative Urine Glucose (UA) Normal Urine Ketones Negative Urine Blood Negative Urine Nitrate Negative Urine Bilirubin Negative Urine Urobilinogen 2.0 Ur Leukocyte Esterase Neg Urine WBC (Auto) 1 Urine RBC (Auto) < 1 Urine Bacteria Occ H
--- NOTE | 2018-06-11 08:30 | RAD ---
Date of service: 06/10/2018 PROCEDURE: CHEST RADIOGRAPH, 1 VIEW HISTORY: SOB COMPARISON: Portable chest 05/19/2018. FINDINGS: LUNGS: Clear. PLEURA: No pneumothorax or pleural fluid seen. CARDIOVASCULAR: Cardiomegaly is stable. No pulmonary vascular congestion. AICD/pacemaker reiterated. OSSEOUS STRUCTURES: No significant abnormalities. VISUALIZED UPPER ABDOMEN: Normal. OTHER FINDINGS: None. IMPRESSION: Stable cardiomegaly. No interval infiltrate, pleural or pericardial effusion appreciable. No pulmonary vascular congestion.
[2018-06-11] MEDS ORDERED: Dextrose 50% SYRINGE Inj (50 ml) IV PRN (13:06)
[2018-06-11] MEDS ORDERED: Glucagon Recombinant 1 mg Inj IM PRN (13:06)
[2018-06-11] MEDS: Enoxaparin 40 mg Syringe SC SCH (13:46)
[2018-06-11] MEDS: Meropenem 1 GM in Sodium Chloride 0.9% 100 ML IVPB SCH (16:00)
[2018-06-11] MEDS: (Novolog) Insulin Aspart, Recombinant 100 u/ml 10 ml vial SC SCH (16:30)
[2018-06-11] MEDS: (Novolin R) Insulin Human Regular 100 units/ml vial SC SCH ×2 (16:35→21:41)
[2018-06-11] MEDS: Rosuvastatin Calcium 2.5 mg Tab PO SCH (21:36)
[2018-06-11] MEDS: Insulin Detemir 100 units/ml Vial (Levemir) SC SCH (21:36)
[2018-06-12] MEDS: Meropenem 1 GM in Sodium Chloride 0.9% 100 ML IVPB SCH ×3 (00:30→16:30)
[2018-06-12] MEDS: (Novolin R) Insulin Human Regular 100 units/ml vial SC SCH ×4 (08:02→22:21)
[2018-06-12] MEDS: (Novolog) Insulin Aspart, Recombinant 100 u/ml 10 ml vial SC SCH ×2 (08:03→17:45)
[2018-06-12] MEDS: Enoxaparin 40 mg Syringe SC SCH (10:06)
--- NOTE | 2018-06-12 12:08 | CARD ---
APPROVED REPORT Date of service: 06/10/2018 EKG Measurement Heart [id number] <Conclusion> Atrial-paced rhythm Left axis deviation Right bundle branch block Inferior infarct, age undetermined T wave abnormality, consider lateral ischemia Abnormal ECG
[2018-06-12] MEDS: Rosuvastatin Calcium 2.5 mg Tab PO SCH ×2 (22:21→22:25)
[2018-06-12] MEDS: Insulin Detemir 100 units/ml Vial (Levemir) SC SCH (22:21)
--- NOTE | 2018-06-12 23:40 | CP.PCM.PN ---
Subjective - Date & Time of Evaluation Date of Evaluation: 06/12/18 Time of Evaluation: 18:00 - Subjective Subjective: pt was seen and examined Objective - Vital Signs/Intake and Output Vital Signs (last 24 hours): Temp Pulse Resp BP Pulse Ox 97.3 F L 60 20 162/70 H 98 06/12/18 15:00 06/12/18 15:00 06/12/18 15:00 06/12/18 15:00 06/12/18 15:00 Intake and Output: 06/12/18 06/13/18 18:59 06:59 Intake Total 250 350 Output Total 320 Balance -70 350 - Medications Medications: Current Medications Amiodarone HCl (Cordarone) 200 mg PO DAILY [facility] Last Admin: 06/12/18 10:05 Dose: 200 mg Amlodipine Besylate (Norvasc) 10 mg PO DAILY [facility] Last Admin: 06/12/18 10:02 Dose: 10 mg Aspirin (Ecotrin) 81 mg PO DAILY [facility] Last Admin: 06/12/18 10:04 Dose: 81 mg Carbidopa/Levodopa (Sinemet 10/100) 1 tab PO TID [facility] Last Admin: 06/12/18 17:44 Dose: 1 tab Carvedilol (Coreg) 6.25 mg PO BID [facility] Last Admin: 06/12/18 17:45 Dose: 6.25 mg Clonazepam (Klonopin) 1 mg PO Q4 PRN PRN Reason: Agitation Clonidine HCl (Catapres-Tts2 0.2 Mg/24 Hr) 1 patch TD Q7D@1000 [facility] Last Admin: 06/12/18 10:09 Dose: 1 patch Dextrose (Dextrose 50% Inj) 0 ml IV STAT PRN; Protocol PRN Reason: Hypoglycemia Protocol Dextrose (Glutose 15) 0 gm PO ONCE PRN; Protocol PRN Reason: Hypoglycemia Protocol Docusate Sodium (Colace) 100 mg PO TID [facility] Last Admin: 06/12/18 17:45 Dose: 100 mg Enoxaparin Sodium (Lovenox) 40 mg SC DAILY [facility] Last Admin: 06/12/18 10:06 Dose: 40 mg Ferrous Sulfate (Feosol) 325 mg PO BID [facility] Last Admin: 06/12/18 17:45 Dose: 325 mg Finasteride (Proscar) 5 mg PO DAILY [facility] Last Admin: 06/12/18 10:09 Dose: 5 mg Furosemide (Lasix) 20 mg PO DAILY [facility] Last Admin: 06/12/18 10:07 Dose: 20 mg Glimepiride (Amaryl) 1 mg PO ACB [facility] Last Admin: 06/12/18 07:05 Dose: 1 mg Glucagon (Glucagen Diagnostic Kit) 0 mg IM STAT PRN; Protocol PRN Reason: Hypoglycemia Protocol Dextrose (Dextrose 5% In Water 1000 Ml) 1,000 mls @ 0 mls/hr IV .Q0M PRN; Protocol; Per Protocol PRN Reason: Hypoglycemia Protocol Meropenem 1 gm/ Sodium (Chloride) 100 mls @ 100 mls/hr IVPB Q8H [facility] PRN Reason: Protocol Last Admin: 06/12/18 16:30 Dose: 100 mls/hr Insulin Aspart (Novolog) 10 unit SC BIDAC [facility] Last Admin: 06/12/18 17:45 Dose: 10 units Insulin Detemir (Levemir) 10 unit SC [facility] Last Admin: 06/12/18 22:21 Dose: 10 u Insulin Human Regular (Novolin R) 0 unit SC [facility] PRN Reason: Protocol Last Admin: 06/12/18 22:21 Dose: Not Given Lisinopril (Zestril) 10 mg PO DAILY [facility] Last Admin: 06/12/18 10:03 Dose: 10 mg Metoprolol Tartrate (Lopressor) 25 mg PO Q12 [facility] Last Admin: 06/12/18 22:25 Dose: Not Given Pneumococcal Polyvalent Vaccine (Pneumovax 23 Vaccine) 0.5 ml IM .ONCE ONE Stop: 06/13/18 10:01 Pramipexole Dihydrochloride (Mirapex) 0.5 mg PO TID [facility] Last Admin: 06/12/18 17:43 Dose: 0.5 mg Quetiapine Fumarate (Seroquel) 25 mg PO [facility] Last Admin: 06/12/18 22:26 Dose: Not Given Rosuvastatin Calcium (Crestor) 2.5 mg PO [facility] Last Admin: 06/12/18 22:25 Dose: Not Given Sucralfate (Carafate Tab) 1 gm PO QID [facility] Last Admin: 06/12/18 22:25 Dose: Not Given Tamsulosin HCl (Flomax) 0.4 mg PO DAILY [facility] Last Admin: 06/12/18 10:07 Dose: 0.4 mg - Labs Labs: 06/10/18 20:39 06/10/18 20:39 - Constitutional Appears: No Acute Distress - Head Exam Head Exam: ATRAUMATIC, NORMAL INSPECTION, NORMOCEPHALIC - Eye Exam Eye Exam: EOMI, Normal appearance, PERRL Pupil Exam: NORMAL ACCOMODATION, PERRL - ENT Exam ENT Exam: Mucous Membranes Moist, Normal Exam - Respiratory Exam Respiratory Exam: Decreased Breath Sounds, Respiratory Distress - Cardiovascular Exam Cardiovascular Exam: REGULAR RHYTHM, +S1, +S2. absent: Murmur - GI/Abdominal Exam GI & Abdominal Exam: Soft, Normal Bowel Sounds. absent: Tenderness - Rectal Exam Rectal Exam: Deferred Assessment and Plan (1) Generalized weakness Status: Acute (2) Inability to walk Status: Acute (3) Parkinson disease Status: Acute (4) CAD (coronary artery disease) Status: Chronic (5) HTN (hypertension) Status: Chronic
[2018-06-13] MEDS: Meropenem 1 GM in Sodium Chloride 0.9% 100 ML IVPB SCH ×3 (00:10→16:20)
[2018-06-13] MEDS: (Novolin R) Insulin Human Regular 100 units/ml vial SC SCH ×4 (08:10→21:43)
[2018-06-13] MEDS: (Novolog) Insulin Aspart, Recombinant 100 u/ml 10 ml vial SC SCH ×2 (08:34→17:24)
[2018-06-13] MEDS ORDERED: Pneumococcal 23-Valent Vaccine IM ONE (10:00)
[2018-06-13] MEDS: Enoxaparin 40 mg Syringe SC SCH (10:25)
[2018-06-13 14:01] LABS: BASO % 0.4 % (0.0-2.0); EOS # 0.1 K/uL (0.0-0.7); EOS % 1.7 % (0.0-4.0); HEMOGLOBIN 12.1 g/dL (12.0-18.0); LYMPH # 0.8 K/uL (1.0-4.3); LYMPH % 9.8 % (20.0-40.0); MEAN CELL VOLUME 79.5 fL (80.0-94.0); MEAN PLATELET VOLUME 8.1 fL (7.2-11.7); MONO # 0.6 K/uL (0.0-0.8); MONO % 7.1 % (0.0-10.0); NEUT # 6.6 K/uL (1.8-7.0); NRBC % 0.1 % (0.0-2.0); PLATELET COUNT 268 K/uL (130-400); RBC 4.46 Mil/uL (4.40-5.90); RED CELL DISTRIBUTION WIDTH 16.5 % (11.5-14.5); WHITE BLOOD COUNT 8.2 K/uL (4.8-10.8)
[2018-06-13 14:31] LABS: EOSINOPHIL 1 % (0-4); LYMPHOCYTE 9 % (20-40); MONOCYTE 4 % (0-10); NEUTROPHIL 86 % (50-75); TOTAL CELLS COUNTED 100
[2018-06-13 14:32] LABS: ANISOCYTOSIS SLIGHT; PLATELET ESTIMATE NORMAL (NORMAL)
[2018-06-13] MEDS: Rosuvastatin Calcium 2.5 mg Tab PO SCH (21:04)
[2018-06-13] MEDS: Insulin Detemir 100 units/ml Vial (Levemir) SC SCH (21:43)
--- NOTE | 2018-06-14 | CP.PCM.PN ---
Subjective - Date & Time of Evaluation Date of Evaluation: 06/13/18 Time of Evaluation: 18:35 - Subjective Subjective: Patient seen and examined. Alert, awake, no sob , dizziness Objective - Vital Signs/Intake and Output Vital Signs (last 24 hours): Temp Pulse Resp BP Pulse Ox 97.7 F 68 20 156/61 H 98 06/13/18 23:30 06/13/18 23:30 06/13/18 23:30 06/13/18 23:30 06/13/18 23:30 Intake and Output: 06/13/18 06/14/18 18:59 06:59 Intake Total 300 500 Balance 300 500 - Medications Medications: Current Medications Amiodarone HCl (Cordarone) 200 mg PO DAILY [facility] Last Admin: 06/13/18 10:22 Dose: 200 mg Amlodipine Besylate (Norvasc) 10 mg PO DAILY [facility] Last Admin: 06/13/18 10:21 Dose: 10 mg Aspirin (Ecotrin) 81 mg PO DAILY [facility] Last Admin: 06/13/18 10:22 Dose: 81 mg Carbidopa/Levodopa (Sinemet 10/100) 1 tab PO TID [facility] Last Admin: 06/13/18 17:23 Dose: 1 tab Carvedilol (Coreg) 6.25 mg PO BID [facility] Last Admin: 06/13/18 17:21 Dose: 6.25 mg Clonazepam (Klonopin) 1 mg PO Q4 PRN PRN Reason: Agitation Clonidine HCl (Catapres-Tts2 0.2 Mg/24 Hr) 1 patch TD Q7D@1000 [facility] Last Admin: 06/12/18 10:09 Dose: 1 patch Dextrose (Dextrose 50% Inj) 0 ml IV STAT PRN; Protocol PRN Reason: Hypoglycemia Protocol Dextrose (Glutose 15) 0 gm PO ONCE PRN; Protocol PRN Reason: Hypoglycemia Protocol Docusate Sodium (Colace) 100 mg PO TID [facility] Last Admin: 06/13/18 17:21 Dose: 100 mg Enoxaparin Sodium (Lovenox) 40 mg SC DAILY [facility] Last Admin: 06/13/18 10:25 Dose: 40 mg Finasteride (Proscar) 5 mg PO DAILY [facility] Last Admin: 06/13/18 10:21 Dose: 5 mg Furosemide (Lasix) 20 mg PO DAILY [facility] Last Admin: 06/13/18 10:24 Dose: 20 mg Glimepiride (Amaryl) 1 mg PO ACB [facility] Last Admin: 06/13/18 08:33 Dose: 1 mg Glucagon (Glucagen Diagnostic Kit) 0 mg IM STAT PRN; Protocol PRN Reason: Hypoglycemia Protocol Dextrose (Dextrose 5% In Water 1000 Ml) 1,000 mls @ 0 mls/hr IV .Q0M PRN; Protocol; Per Protocol PRN Reason: Hypoglycemia Protocol Meropenem 1 gm/ Sodium (Chloride) 100 mls @ 100 mls/hr IVPB Q8H [facility] PRN Reason: Protocol Last Admin: 06/13/18 16:20 Dose: 100 mls/hr Insulin Aspart (Novolog) 10 unit SC BIDAC [facility] Last Admin: 06/13/18 17:24 Dose: 10 units Insulin Detemir (Levemir) 10 unit SC HS [facility] Last Admin: 06/13/18 21:43 Dose: Not Given Insulin Human Regular (Novolin R) 0 unit SC ACHS [facility] PRN Reason: Protocol Last Admin: 06/13/18 21:43 Dose: Not Given Lisinopril (Zestril) 20 mg PO DAILY [facility] Metoprolol Tartrate (Lopressor) 25 mg PO Q12 [facility] Last Admin: 06/13/18 21:05 Dose: Not Given Pramipexole Dihydrochloride (Mirapex) 0.5 mg PO TID [facility] Last Admin: 06/13/18 17:22 Dose: 0.5 mg Quetiapine Fumarate (Seroquel) 25 mg PO [facility] Last Admin: 06/13/18 21:05 Dose: Not Given Rosuvastatin Calcium (Crestor) 2.5 mg PO [facility] Last Admin: 06/13/18 21:04 Dose: Not Given Sucralfate (Carafate Tab) 1 gm PO QID [facility] Last Admin: 06/13/18 21:04 Dose: Not Given Tamsulosin HCl (Flomax) 0.4 mg PO DAILY [facility] Last Admin: 06/13/18 10:21 Dose: 0.4 mg - Labs Labs: 06/13/18 13:54 06/10/18 20:39 - Constitutional Appears: No Acute Distress - Eye Exam Eye Exam: EOMI, Normal appearance, PERRL Pupil Exam: NORMAL ACCOMODATION, PERRL - ENT Exam ENT Exam: Mucous Membranes Moist, Normal Exam - Respiratory Exam Respiratory Exam: Clear to Ausculation Bilateral - Cardiovascular Exam Cardiovascular Exam: REGULAR RHYTHM, +S1, +S2. absent: Murmur - GI/Abdominal Exam GI & Abdominal Exam: Soft, Normal Bowel Sounds. absent: Tenderness Assessment and Plan (1) Generalized weakness Status: Acute (2) Inability to walk Status: Acute (3) Parkinson disease Status: Acute (4) CAD (coronary artery disease) Status: Chronic (5) HTN (hypertension) Status: Chronic
[2018-06-14] MEDS: Meropenem 1 GM in Sodium Chloride 0.9% 100 ML IVPB SCH ×3 (00:30→16:53)
[2018-06-14 07:23] LABS: BASO % 0.4 % (0.0-2.0); EOS # 0.2 K/uL (0.0-0.7); EOS % 2.8 % (0.0-4.0); HEMOGLOBIN 12.3 g/dL (12.0-18.0); LYMPH # 1.3 K/uL (1.0-4.3); LYMPH % 17.9 % (20.0-40.0); MEAN CELL VOLUME 79.2 fL (80.0-94.0); MEAN CORPUSCULAR HEMOGLOBIN 26.6 pg (27.0-31.0); MEAN CORPUSCULAR HGB CONC 33.7 g/dL (33.0-37.0); MONO # 0.8 K/uL (0.0-0.8); MONO % 10.2 % (0.0-10.0); NEUT # 5.2 K/uL (1.8-7.0); NEUT % 68.7 % (50.0-75.0); NRBC % 0.1 % (0.0-2.0); RBC 4.62 Mil/uL (4.40-5.90); RED CELL DISTRIBUTION WIDTH 16.6 % (11.5-14.5); WHITE BLOOD COUNT 7.5 K/uL (4.8-10.8)
[2018-06-14 07:41] LABS: ALB/GLOB RATIO 1.3 (1.0-2.1); ALBUMIN 3.3 g/dL (3.5-5.0); ALT/SGPT 63 U/L (21-72); AST/SGOT 59 U/L (17-59); BLOOD UREA NITROGEN 26 mg/dL (9-20); CALCIUM 8.7 mg/dl (8.6-10.4); GFR AFRICAN-AMERICAN > 60; GFR NON-AFRICAN AMERICAN 58
[2018-06-14] MEDS: (Novolin R) Insulin Human Regular 100 units/ml vial SC SCH ×4 (08:13→21:43)
[2018-06-14] MEDS: (Novolog) Insulin Aspart, Recombinant 100 u/ml 10 ml vial SC SCH ×2 (08:21→16:55)
[2018-06-14] MEDS: Enoxaparin 40 mg Syringe SC SCH (10:20)
[2018-06-14] MEDS: Insulin Detemir 100 units/ml Vial (Levemir) SC SCH (21:39)
[2018-06-14] MEDS: Rosuvastatin Calcium 2.5 mg Tab PO SCH (21:41)
--- NOTE | 2018-06-14 23:57 | CP.PCM.PN ---
Subjective - Date & Time of Evaluation Date of Evaluation: 06/14/18 Time of Evaluation: 19:40 - Subjective Subjective: Pt seen and examined at bedside, is weak, is not short of breath, no chest pain , mostly in bed, although doing physical therapy Objective - Vital Signs/Intake and Output Vital Signs (last 24 hours): Temp Pulse Resp BP Pulse Ox 98.3 F 80 20 133/77 98 06/14/18 23:12 06/14/18 23:12 06/14/18 23:12 06/14/18 23:12 06/14/18 23:12 Intake and Output: 06/14/18 06/15/18 18:59 06:59 Intake Total 600 400 Output Total 700 600 Balance -100 -200 - Medications Medications: Current Medications Amiodarone HCl (Cordarone) 200 mg PO DAILY [facility] Last Admin: 06/14/18 10:20 Dose: 200 mg Amlodipine Besylate (Norvasc) 10 mg PO DAILY [facility] Last Admin: 06/14/18 10:21 Dose: 10 mg Aspirin (Ecotrin) 81 mg PO DAILY [facility] Last Admin: 06/14/18 10:21 Dose: 81 mg Carbidopa/Levodopa (Sinemet 10/100) 1 tab PO TID [facility] Last Admin: 06/14/18 17:34 Dose: 1 tab Carvedilol (Coreg) 6.25 mg PO BID [facility] Last Admin: 06/14/18 17:34 Dose: 6.25 mg Clonidine HCl (Catapres-Tts2 0.2 Mg/24 Hr) 1 patch TD Q7D@1000 [facility] Last Admin: 06/12/18 10:09 Dose: 1 patch Dextrose (Dextrose 50% Inj) 0 ml IV STAT PRN; Protocol PRN Reason: Hypoglycemia Protocol Dextrose (Glutose 15) 0 gm PO ONCE PRN; Protocol PRN Reason: Hypoglycemia Protocol Docusate Sodium (Colace) 100 mg PO TID [facility] Last Admin: 06/14/18 17:34 Dose: 100 mg Enoxaparin Sodium (Lovenox) 40 mg SC DAILY [facility] Last Admin: 06/14/18 10:20 Dose: 40 mg Finasteride (Proscar) 5 mg PO DAILY [facility] Last Admin: 06/14/18 10:20 Dose: 5 mg Furosemide (Lasix) 20 mg PO DAILY [facility] Last Admin: 06/14/18 10:21 Dose: 20 mg Glimepiride (Amaryl) 1 mg PO ACB [facility] Last Admin: 06/14/18 08:20 Dose: 1 mg Glucagon (Glucagen Diagnostic Kit) 0 mg IM STAT PRN; Protocol PRN Reason: Hypoglycemia Protocol Meropenem 1 gm/ Sodium (Chloride) 100 mls @ 100 mls/hr IVPB Q8H [facility] PRN Reason: Protocol Last Admin: 06/14/18 16:53 Dose: 100 mls/hr Insulin Aspart (Novolog) 10 unit SC BIDAC [facility] Last Admin: 06/14/18 16:55 Dose: 10 units Insulin Detemir (Levemir) 10 unit SC HS [facility] Last Admin: 06/14/18 21:39 Dose: 10 u Insulin Human Regular (Novolin R) 0 unit SC ACHS [facility] PRN Reason: Protocol Last Admin: 06/14/18 21:43 Dose: Not Given Lisinopril (Zestril) 20 mg PO DAILY [facility] Last Admin: 06/14/18 10:20 Dose: 20 mg Lorazepam (Ativan) 1 mg IM Q6H PRN PRN Reason: Anxiety Metoprolol Tartrate (Lopressor) 25 mg PO Q12 [facility] Last Admin: 06/14/18 21:41 Dose: 25 mg Pramipexole Dihydrochloride (Mirapex) 0.5 mg PO TID [facility] Last Admin: 06/14/18 17:35 Dose: 0.5 mg Quetiapine Fumarate (Seroquel) 25 mg PO [facility] Last Admin: 06/14/18 21:41 Dose: 25 mg Rosuvastatin Calcium (Crestor) 2.5 mg PO [facility] Last Admin: 06/14/18 21:41 Dose: 2.5 mg Sucralfate (Carafate Tab) 1 gm PO QID [facility] Last Admin: 06/14/18 21:41 Dose: 1 gm Tamsulosin HCl (Flomax) 0.4 mg PO DAILY [facility] Last Admin: 06/14/18 10:21 Dose: 0.4 mg - Labs Labs: 06/14/18 06:51 06/14/18 06:51 - Constitutional Appears: No Acute Distress - Head Exam Head Exam: ATRAUMATIC, NORMAL INSPECTION, NORMOCEPHALIC - Eye Exam Eye Exam: EOMI, Normal appearance, PERRL Pupil Exam: NORMAL ACCOMODATION, PERRL - ENT Exam ENT Exam: Mucous Membranes Moist, Normal Exam - Respiratory Exam Respiratory Exam: Clear to Ausculation Bilateral, NORMAL BREATHING PATTERN - Cardiovascular Exam Cardiovascular Exam: REGULAR RHYTHM, +S1, +S2. absent: Murmur - GI/Abdominal Exam GI & Abdominal Exam: Soft, Normal Bowel Sounds. absent: Tenderness - Rectal Exam Rectal Exam: Deferred Assessment and Plan (1) Generalized weakness Status: Acute (2) Inability to walk Status: Acute (3) Parkinson disease Status: Acute (4) CAD (coronary artery disease) Status: Chronic (5) HTN (hypertension) Status: Chronic
[2018-06-15] MEDS: Meropenem 1 GM in Sodium Chloride 0.9% 100 ML IVPB SCH ×3 (00:05→17:02)
[2018-06-15] MEDS: (Novolin R) Insulin Human Regular 100 units/ml vial SC SCH ×4 (07:52→22:00)
[2018-06-15] MEDS: (Novolog) Insulin Aspart, Recombinant 100 u/ml 10 ml vial SC SCH ×2 (08:34→17:07)
--- NOTE | 2018-06-15 08:56 | CON ---
Copied To: Harman Mathias MD Attending MD: Harman Mathias MD DATE: 06/14/2018 PSYCHIATRIC CONSULTATION Note, the patient is a very poor historian. Collateral information taken from the chart and staff. CHIEF COMPLAINT AND REASON FOR CONSULTATION: The patient is referred by Dr. Lora as the patient has been exhibiting increasing aggressive behavior towards staff, combative, and also with history of dementia, Alzheimer's type. HISTORY OF PRESENT ILLNESS: This is the case of an 82-year-old male, who is well known to me from previous consults at [facility]. The patient has history of Alzheimer's dementia as well as Parkinson disease according to him. He has Parkinson's for 8 years. The patient was admitted here for generalized weakness, body pain, and difficulty walking. The patient was referred for evaluation and comanagement of increasing agitation. He has been very combative with staff. Yesterday, he was given Haldol 2 mg IM. It seems to control his behavior, but today he is still exhibiting increasing combative behavior and was started by Dr. Lora with Seroquel 25 mg at bedtime as well as on Klonopin 1 mg p.o. every 4 hours p.r.n. but the patient at times is refusing to take p.o. meds. The patient has been noted to be refusing to take his regular medications on time, especially his Parkinson meds, and according to the nurse, they have to give it with applesauce, but the patient at times is spitting his meds which have contributed to the deterioration of his Parkinson problem. Today, he said he wants to go home. According to the corrections caseworker, the family does not want the patient to go for subacute rehab, but wants to take him home with home care services. The patient when seen is less agitated but noted to have very coarse hand tremors, but states he wants to go home. He is still very confused but his behavior is still erratic at times. PAST PSYCHIATRIC HISTORY: As stated history of dementia, behavioral problems, Alzheimer's type. PAST MEDICAL HISTORY: As stated history of dementia, CAD, CHF, diabetes, hypertension, hypercholesterolemia, Parkinson disease, CKD, history of gait dysfunction, syncope, generalized weakness, history of Parkinson disease, UTI, anemia. DRUG AND ALCOHOL HISTORY: Denies any. ALLERGIES: THE PATIENT HAS NO KNOWN ALLERGIES. PSYCHOSOCIAL HISTORY: The patient lives with his family who are taking care of him. MEDICATIONS: The list of current medications include Amaryl, Carafate, Catapres, Colace, Coreg, Cordarone, Flomax. The patient is on Klonopin 1 mg p.o. every 4 hours p.r.n. and metoprolol, Lovenox, meropenem, Mirapex 0.5 mg p.o. t.i.d. as well as on Sinemet 10/100 one puff p.o. t.i.d., Zestril, Proscar, Novolin. REVIEW OF SYSTEMS: GENERAL: The is alert, agitated at times, still confused in the four-bedded room. The patient is noted to have very coarse hand tremors in his room, conversing in Malay. SKIN: No diaphoresis. HEENT: No headache or dizziness. NECK: Supple. RESPIRATORY: No dyspnea. CARDIOVASCULAR: No chest pain. GASTROINTESTINAL: No nausea or vomiting. EXTREMITIES: He has very coarse bilateral hand tremors and also gait is very unsteady, needs assistance from staff. MUSCULOSKELETAL: Feels weak. NEUROLOGIC: Alert with significant periods of confusion. The patient is only oriented to person not to place and time. PHYSICAL EXAMINATION: VITAL SIGNS: Temperature is 98.8, heart rate 58, blood pressure 167/64, respirations 20, and oxygen saturation is 96%. MENTAL STATUS EXAMINATION: An elderly male, who looks stated age; oriented x1 only to person, not to time and place. Mood is anxious and dysphoric. Affect is reactive. Speech is spontaneous, conversing in Malay. Thought process is confused. Thought content, the patient wants to go home, no overt paranoia or hallucinations. No suicidal or homicidal ideation. Attention and memory seem to be limited. Insight and judgment are limited. Impulse control is guarded at this time. LABORATORY DATA: Review of his labs: The patient's sodium is 137. WBC is 7.5, H and H are 12.3 and 36.6. His creatinine is 1.2, GFR is 58, random sugar is 192. His urinalysis, the patient has no signs of UTI. IMPRESSION: History of dementia with behavioral problems, Alzheimer's type, history of Parkinson disease, gait dysfunction. History of urinary tract infection, history of hypertension, coronary artery disease. PLAN AND RECOMMENDATIONS: The patient is seen, meds reviewed. We will continue to keep patient in four-bedded room for monitoring, and then we can agree to keep the Seroquel 25 mg at bedtime for dementia and behavioral problems. We will discontinue the Klonopin and put him on Ativan instead IM 1 mg every 6 hours p.r.n. as the patient at times is refusing p.o. meds. We will continue his medicines for Parkinson, the Sinemet and Mirapex. Neuro followup as needed. I advised that the patient cannot be given Haldol, as the Haldol can worsen his Parkinson. The patient seems to have history of noncompliance to his Parkinson meds which is a very vital factor, especially with keeping the patient's Parkinson disease in control, patient needs to take the medication on time, but the patient seems to be not taking his medication on time and is refusing to take it, which can cause decompensation of his Parkinson's disease. A low dose Seroquel may be a benefit to the patient to control his behavioral problems, so the patient can be managed especially at home. The patient's family does not want the patient to go for subacute rehab. Psych james, the patient can go home. He may continue taking the Seroquel as ordered and then the Ativan p.r.n. as needed. Thank you very much for the consultation. Harman Mathias MD
[2018-06-15] MEDS: Enoxaparin 40 mg Syringe SC SCH (10:52)
--- NOTE | 2018-06-15 17:10 | CP.PCM.PN ---
Subjective - Date & Time of Evaluation Date of Evaluation: 06/15/18 Time of Evaluation: 17:10 - Subjective Subjective: Awake, confused, follows commands, no acute agitation, NAD. Objective - Vital Signs/Intake and Output Vital Signs (last 24 hours): Temp Pulse Resp BP Pulse Ox 97.7 F 58 L 20 130/71 96 06/15/18 16:00 06/15/18 16:00 06/15/18 16:00 06/15/18 16:00 06/15/18 16:00 Intake and Output: 06/15/18 06/15/18 06:59 18:59 Intake Total 620 500 Output Total 600 Balance 20 500 - Medications Medications: Current Medications Amiodarone HCl (Cordarone) 200 mg PO DAILY [facility] Last Admin: 06/15/18 10:52 Dose: 200 mg Amlodipine Besylate (Norvasc) 10 mg PO DAILY [facility] Last Admin: 06/15/18 10:53 Dose: 10 mg Aspirin (Ecotrin) 81 mg PO DAILY [facility] Last Admin: 06/15/18 10:52 Dose: 81 mg Carbidopa/Levodopa (Sinemet 10/100) 1 tab PO TID [facility] Last Admin: 06/15/18 13:50 Dose: 1 tab Carvedilol (Coreg) 6.25 mg PO BID [facility] Last Admin: 06/15/18 10:52 Dose: 6.25 mg Clonidine HCl (Catapres-Tts2 0.2 Mg/24 Hr) 1 patch TD Q7D@1000 [facility] Last Admin: 06/12/18 10:09 Dose: 1 patch Dextrose (Dextrose 50% Inj) 0 ml IV STAT PRN; Protocol PRN Reason: Hypoglycemia Protocol Dextrose (Glutose 15) 0 gm PO ONCE PRN; Protocol PRN Reason: Hypoglycemia Protocol Docusate Sodium (Colace) 100 mg PO TID [facility] Last Admin: 06/15/18 13:49 Dose: 100 mg Enoxaparin Sodium (Lovenox) 40 mg SC DAILY [facility] Last Admin: 06/15/18 10:52 Dose: 40 mg Finasteride (Proscar) 5 mg PO DAILY [facility] Last Admin: 06/15/18 10:52 Dose: 5 mg Furosemide (Lasix) 20 mg PO DAILY [facility] Last Admin: 06/15/18 10:53 Dose: 20 mg Glimepiride (Amaryl) 1 mg PO ACB [facility] Last Admin: 06/15/18 08:34 Dose: 1 mg Glucagon (Glucagen Diagnostic Kit) 0 mg IM STAT PRN; Protocol PRN Reason: Hypoglycemia Protocol Meropenem 1 gm/ Sodium (Chloride) 100 mls @ 100 mls/hr IVPB Q8H [facility] PRN Reason: Protocol Last Admin: 06/15/18 08:34 Dose: 100 mls/hr Insulin Aspart (Novolog) 10 unit SC BIDAC [facility] Last Admin: 06/15/18 08:34 Dose: 10 units Insulin Detemir (Levemir) 10 unit SC HS [facility] Last Admin: 06/14/18 21:39 Dose: 10 u Insulin Human Regular (Novolin R) 0 unit SC ACHS [facility] PRN Reason: Protocol Last Admin: 06/15/18 11:46 Dose: 2 units Lisinopril (Zestril) 20 mg PO DAILY [facility] Last Admin: 06/15/18 10:52 Dose: 20 mg Lorazepam (Ativan) 1 mg IM Q6H PRN PRN Reason: Anxiety Metoprolol Tartrate (Lopressor) 25 mg PO Q12 [facility] Last Admin: 06/15/18 10:53 Dose: 25 mg Pramipexole Dihydrochloride (Mirapex) 0.5 mg PO TID [facility] Last Admin: 06/15/18 13:50 Dose: 0.5 mg Quetiapine Fumarate (Seroquel) 25 mg PO [facility] Last Admin: 06/14/18 21:41 Dose: 25 mg Rosuvastatin Calcium (Crestor) 2.5 mg PO [facility] Last Admin: 06/14/18 21:41 Dose: 2.5 mg Sucralfate (Carafate Tab) 1 gm PO QID [facility] Last Admin: 06/15/18 13:49 Dose: 1 gm Tamsulosin HCl (Flomax) 0.4 mg PO DAILY [facility] Last Admin: 06/15/18 10:52 Dose: 0.4 mg - Labs Labs: 06/14/18 06:51 06/14/18 06:51 Assessment and Plan - Assessment and Plan (Free Text) Assessment: 82 year old male with dementia, parkinson's disease admitted with generalized weakness, seen and examined. Confused, no acute agitation, able to eat and drink , NAD. Cleared by DR Adame, discussed with DR Guido , plan to discharge home since the family refuses rehab. All medications reconciled. Advised to follow up with PMD in 1 week. To continue with psyche meds as ordered.
[2018-06-15] MEDS: Rosuvastatin Calcium 2.5 mg Tab PO SCH (21:46)
[2018-06-15] MEDS: Insulin Detemir 100 units/ml Vial (Levemir) SC SCH (21:47)
[2018-06-16] MEDS: Meropenem 1 GM in Sodium Chloride 0.9% 100 ML IVPB SCH ×2 (00:06→08:28)
[2018-06-16 07:40] VITALS: BP 146/71; PULSE 63; TEMP 97.8; O2SAT 97
[2018-06-16] MEDS: (Novolin R) Insulin Human Regular 100 units/ml vial SC SCH (08:07)
[2018-06-16] MEDS: (Novolog) Insulin Aspart, Recombinant 100 u/ml 10 ml vial SC SCH (08:08)
--- NOTE | 2018-06-17 00:16 | CP.PCM.DIS ---
Provider - Provider Date of Admission: 06/10/18 21:33 Attending physician: Dmitriy Lora MD Time Spent in preparation of Discharge (in minutes): 52 Diagnosis - Discharge Diagnosis (1) Generalized weakness Status: Acute (2) Inability to walk Status: Acute (3) Parkinson disease Status: Acute (4) CAD (coronary artery disease) Status: Chronic (5) HTN (hypertension) Status: Chronic Hospital Course - Lab Results Lab Results: Micro Results 06/10/18 21:01 Urine Urine Culture - Final No Growth (<1,000 CFU/ML) Most Recent Lab Values WBC 7.5 K/uL (4.8-10.8) 06/14/18 06:51 RBC 4.62 Mil/uL (4.40-5.90) 06/14/18 06:51 Hgb 12.3 g/dL (12.0-18.0) 06/14/18 06:51 Hct 36.6 % (35.0-51.0) 06/14/18 06:51 MCV 79.2 fL (80.0-94.0) L 06/14/18 06:51 MCH 26.6 pg (27.0-31.0) L 06/14/18 06:51 MCHC 33.7 g/dL (33.0-37.0) 06/14/18 06:51 RDW 16.6 % (11.5-14.5) H 06/14/18 06:51 Plt Count 279 K/uL (130-400) 06/14/18 06:51 MPV 8.0 fL (7.2-11.7) 06/14/18 06:51 Neut % (Auto) 68.7 % (50.0-75.0) 06/14/18 06:51 Lymph % (Auto) 17.9 % (20.0-40.0) L 06/14/18 06:51 [place] % (Auto) 10.2 % (0.0-10.0) H 06/14/18 06:51 Eos % (Auto) 2.8 % (0.0-4.0) 06/14/18 06:51 Baso % (Auto) 0.4 % (0.0-2.0) 06/14/18 06:51 Neut # (Auto) 5.2 K/uL (1.8-7.0) 06/14/18 06:51 Lymph # (Auto) 1.3 K/uL (1.0-4.3) 06/14/18 06:51 [place] # (Auto) 0.8 K/uL (0.0-0.8) 06/14/18 06:51 Eos # (Auto) 0.2 K/uL (0.0-0.7) 06/14/18 06:51 Baso # (Auto) 0.0 K/uL (0.0-0.2) 06/14/18 06:51 Neutrophils % (Manual) 86 % (50-75) H 06/13/18 13:54 Lymphocytes % (Manual) 9 % (20-40) L 06/13/18 13:54 Monocytes % (Manual) 4 % (0-10) 06/13/18 13:54 Eosinophils % (Manual) 1 % (0-4) 06/13/18 13:54 Platelet Estimate Normal (NORMAL) 06/13/18 13:54 Anisocytosis (manual) Slight 06/13/18 13:54 Sodium 137 mmol/L (132-148) 06/14/18 06:51 Potassium 4.2 mmol/L (3.6-5.2) 06/14/18 06:51 Chloride 104 mmol/L (98-107) 06/14/18 06:51 Carbon Dioxide 24 mmol/L (22-30) 06/14/18 06:51 Anion Gap 15 (10-20) 06/14/18 06:51 BUN 26 mg/dL (9-20) H 06/14/18 06:51 Creatinine 1.2 mg/dL (0.8-1.5) 06/14/18 06:51 Est GFR ( Amer) > 60 06/14/18 06:51 Est GFR (Non-Af Amer) 58 06/14/18 06:51 POC Glucose (mg/dL) 125 mg/dL (65-110) H 06/15/18 21:56 Random Glucose 153 mg/dL (75-110) H 06/14/18 06:51 Calcium 8.7 mg/dl (8.6-10.4) 06/14/18 06:51 Total Bilirubin 1.2 mg/dL (0.2-1.3) 06/14/18 06:51 AST 59 U/L (17-59) D 06/14/18 06:51 ALT 63 U/L (21-72) 06/14/18 06:51 Alkaline Phosphatase 68 U/L (38-126) 06/14/18 06:51 Total Creatine Kinase 42 U/L (55-170) L 06/10/18 20:39 CK-MB (Mass) 1.02 ng/mL (0.0-3.38) 06/10/18 20:39 Troponin I < 0.0120 ng/mL (0.00-0.120) 06/10/18 20:39 NT-Pro-B Natriuret Pep 1790 pg/mL (0-900) H 06/13/18 13:54 Total Protein 5.8 g/dL (6.3-8.3) L 06/14/18 06:51 Albumin 3.3 g/dL (3.5-5.0) L 06/14/18 06:51 Globulin 2.6 gm/dL (2.2-3.9) 06/14/18 06:51 Albumin/Globulin Ratio 1.3 (1.0-2.1) 06/14/18 06:51 Lipase 72 U/L (23-300) 06/10/18 20:39 Urine Color Yellow (YELLOW) 06/10/18 21:01 Urine Clarity Clear (Clear) 06/10/18 21:01 Urine pH 5.0 (5.0-8.0) 06/10/18 21:01 Ur Specific [place] 1.012 (1.003-1.030) 06/10/18 21:01 Urine Protein Negative mg/dL (NEGATIVE) 06/10/18 21:01 Urine Glucose (UA) Normal mg/dL (Normal) 06/10/18 21:01 Urine Ketones Negative mg/dL (NEGATIVE) 06/10/18 21:01 Urine Blood Negative (NEGATIVE) 06/10/18 21:01 Urine Nitrate Negative (NEGATIVE) 06/10/18 21:01 Urine Bilirubin Negative (NEGATIVE) 06/10/18 21:01 Urine Urobilinogen 2.0 mg/dL (0.2-1.0) 06/10/18 21:01 Ur Leukocyte Esterase Neg Bahman/uL (Negative) 06/10/18 21:01 Urine WBC (Auto) 1 /hpf (0-5) 06/10/18 21:01 Urine RBC (Auto) < 1 /hpf (0-3) 06/10/18 21:01 Urine Bacteria Occ (<OCC) H 06/10/18 21:01 - Hospital Course Hospital Course: 82 year old male with dementia, parkinson's disease admitted with generalized weakness, seen and examined. Confused, no acute agitation, able to eat and drink , NAD. Cleared for discharge , plan to go home since the family refuses rehab. All medications reconciled. Advised to follow up with PMD in 1 week. To continue with psyche meds as ordered. Discharge Exam - Head Exam Head Exam: ATRAUMATIC, NORMAL INSPECTION, NORMOCEPHALIC - Eye Exam Eye Exam: EOMI, Normal appearance, PERRL Pupil Exam: NORMAL ACCOMODATION, PERRL - ENT Exam ENT Exam: Mucous Membranes Moist - Respiratory Exam Respiratory Exam: Clear to PA & Lateral, NORMAL BREATHING PATTERN - Cardiovascular Exam Cardiovascular Exam: REGULAR RHYTHM, +S1, +S2 - GI/Abdominal Exam GI & Abdominal Exam: Normal Bowel Sounds Discharge Plan - Discharge Medications Prescriptions: QUEtiapine [Seroquel] 25 mg PO HS #30 tab - Follow Up Plan Condition: FAIR Disposition: HOME/ ROUTINE Instructions: Quetiapine, Weakness (ED) Referrals: Dmitriy Lora MD [Staff Provider] -
== END 2018-06-16 09:15 | disposition home or self-care (01) | DRG 57 ==
LOC: C.ER 19:47 → C.9E 21:33 → C.3T 22:45
PROVIDERS: ADMIT Internal Medicine; ATTEND Internal Medicine
DX: G20 Parkinson's disease (principal); I13.0 Hypertensive heart and chronic kidney disease with heart failure and stage 1 through stage 4 chronic kidney disease, or unspecified chronic kidney disease; F02.81 Dementia in other diseases classified elsewhere, unspecified severity, with behavioral disturbance; R53.1 Weakness; E11.22 Type 2 diabetes mellitus with diabetic chronic kidney disease; E78.00 Pure hypercholesterolemia, unspecified; G30.9 Alzheimer's disease, unspecified; I25.10 Atherosclerotic heart disease of native coronary artery without angina pectoris; I50.9 Heart failure, unspecified; J45.909 Unspecified asthma, uncomplicated; N18.9 Chronic kidney disease, unspecified; Z91.14 Patient's other noncompliance with medication regimen; Z95.5 Presence of coronary angioplasty implant and graft; Z95.0 Presence of cardiac pacemaker; R26.2 Difficulty in walking, not elsewhere classified; Z79.4 Long term (current) use of insulin

== ENCOUNTER 2018-08-02 22:44 | Inpatient (IN) | payer MEDICARE, MEDICAID ==
[2018-08-02 22:45] VITALS: BMI 27.1
[2018-08-02] MEDS ORDERED: Albuterol 0.083% Inhal Sol (2.5 mg/3 mL) UD IH STA (23:00)
[2018-08-02 23:09] LABS: HEMOGLOBIN 11.1 g/dL (12.0-18.0); RBC 4.05 Mil/uL (4.40-5.90); WHITE BLOOD COUNT 6.7 K/uL (4.8-10.8)
[2018-08-02 23:10] LABS: BASO % 0.3 % (0.0-2.0); EOS # 0.1 K/uL (0.0-0.7); EOS % 0.8 % (0.0-4.0); LYMPH # 1.1 K/uL (1.0-4.3); LYMPH % 16.8 % (20.0-40.0); MEAN CELL VOLUME 81.6 fL (80.0-94.0); MEAN CORPUSCULAR HEMOGLOBIN 27.5 pg (27.0-31.0); MEAN CORPUSCULAR HGB CONC 33.7 g/dL (33.0-37.0); MONO # 0.7 K/uL (0.0-0.8); MONO % 10.3 % (0.0-10.0); NEUT # 4.8 K/uL (1.8-7.0); NEUT % 71.8 % (50.0-75.0); NRBC % 0.1 % (0.0-2.0); RED CELL DISTRIBUTION WIDTH 14.9 % (11.5-14.5)
[2018-08-02 23:16] LABS: URINE BACTERIA OCC (<OCC); URINE BILIRUBIN NEGATIVE (NEGATIVE); URINE BLOOD 1+ (NEGATIVE); URINE CLARITY Clear (Clear); URINE COLOR Yellow (YELLOW); URINE GLUCOSE (UA) NORMAL (Normal); URINE LEUKOCYTE ESTERASE NEG Leu/uL (Negative); URINE PROTEIN 2+ mg/dL (NEGATIVE); URINE UROBILINOGEN NORMAL mg/dL (0.2-1.0)
[2018-08-02 23:21] LABS: ALB/GLOB RATIO 0.9 (1.0-2.1); ALBUMIN 3.4 g/dL (3.5-5.0); BLOOD UREA NITROGEN 15 mg/dL (9-20); GFR NON-AFRICAN AMERICAN > 60
[2018-08-02 23:22] LABS: ALT/SGPT 31 U/L (21-72); AST/SGOT 21 U/L (17-59)
--- NOTE | 2018-08-02 23:28 | C.PDOC ---
History Of Present Illness 83 year old male with PMHx of Dementia, Alzheimer's Disease, Parkinson's disease, HTN, CAD status post stent, presents to the ED complaining of shortness of breath ongoing for 3 days. According to patient's grandson, patient has a hi story of similar presentation. Patient was seen in the ED previously for exacerbation of COPD and CHF. He is noncompliant with any medication at home. HPI limited due to language barrier and patient's clinical condition. Time Seen by Provider: 08/02/18 22:48 Chief Complaint (Nursing): Shortness Of Breath History Per: Patient, Family (Grandson ) History/Exam Limitations: no limitations Onset/Duration Of Symptoms: Days (3) Current Symptoms Are (Timing): Still Present Past Medical History Reviewed: Historical Data, Nursing Documentation, Vital Signs Vital Signs: Last Vital Signs Temp Pulse 80 08/02/18 23:18 Resp 18 08/02/18 23:18 BP 177/77 H 08/02/18 23:18 Pulse Ox 99 08/02/18 23:18 - Medical History PMH: Alzheimer's Disease, Arthritis, Asthma, CAD, CHF, Dementia, Diabetes, HTN, Hypercholesterolemia, Hyperlipidemia, Parkinson's Disease, Chronic Kidney Disease Denies: HIV, Seizures, Sexually Transmitted Disease Surgical History: Coronary Stent, Pacemaker - [facility] Procedures TETANUS TOXOID ADMINIST (10/01/13) TRANSFUSE NONAUT RED BLOOD CELLS IN PERIPH VEIN, PERC (03/20/17) Family History: States: No Known Family Hx - Social History Hx Tobacco Use: No Hx Alcohol Use: No Hx Substance Use: No - Immunization History Hx Tetanus Toxoid Vaccination: No Hx Influenza Vaccination: Yes Hx Pneumococcal Vaccination: No Review Of Systems Respiratory: Positive for: Shortness of Breath Physical Exam - Physical Exam Appears: Non-toxic, Other (in respiratory distress) Skin: Warm, Dry Head: Normacephalic Eye(s): bilateral: Normal Inspection, PERRL, EOMI Nose: Normal Oral Mucosa: Moist Neck: Normal ROM Chest: Symmetrical Cardiovascular: Rhythm Regular, No Edema, No JVD Respiratory: No Normal Breath Sounds, Rales (diffused rales), Wheezing (Diffused wheezing) Gastrointestinal/Abdominal: Soft, No Tenderness Extremity: No Pedal Edema Neurological/Psych: Other (alert, awake, patient at baseline ) Gait: Steady ED Course And Treatment - Laboratory Results Result Diagrams: 08/02/18 23:07 08/02/18 23:07 Lab Interpretation: Abnormal (BNP 29634, glucose 249) ECG: Interpreted By Me ECG Rhythm: Sinus Rhythm (with left axis and old inferior-posterior infarct) ECG Interpretation: No Acute Changes O2 Sat by Pulse Oximetry: 99 (RA) Pulse Ox Interpretation: Normal - Radiology CXR: Interpreted by Me CXR Interpretation: Yes: Infiltrates, Cardiomegaly Reevaluation Time: 23:45 Reassessment Condition: Improved (on BIPAP) - Physician Consult Information Time Consulting Physician Contacted: 23:45 Physician Contacted: Eber Lopez Jr. Outcome Of Conversation: Patient to be admitted to [facility] with CHF Medical Decision Making Medical Decision Making: Orders: - CXR - EKG - Bloodwork - Labwork - Nebulizer treatment - Lasix 80mg IVP Disposition - Disposition Disposition: HOSPITALIZED Disposition Time: 23:45 Condition: IMPROVED - POA Present On Arrival: Poor Glycemic Control - Clinical Impression Clinical Impression: Dyspnea, Respiratory distress, CHF (congestive heart failure) - Scribe Statement The provider has reviewed the documentation as recorded by the Scribe Ashley Garza All medical record entries made by the Scribe were at my direction and personally dictated by me. I have reviewed the chart and agree that the record accurately reflects my personal performance of the history, physical exam, medical decision making, and the department course for this patient. I have also personally directed, reviewed, and agree with the discharge instructions and disposition.
[2018-08-02 23:33] LABS: B-TYPE NATRIURETIC PEPTIDE 10800 pg/mL (0-900)
[2018-08-03] MEDS ORDERED: Albuterol 0.083% Inhal Sol (2.5 mg/3 mL) UD ONE (00:07)
[2018-08-03 00:17] LABS: ABG ALLEN TEST POS; ARTERIAL BLOOD GAS HCO3 24.8 mmol/L (21-28); ARTERIAL BLOOD GAS HEMOGLOBIN 10.3 g/dL (11.7-17.4); ARTERIAL BLOOD GAS O2 SAT 99.2 % (95-98); ARTERIAL BLOOD GAS PCO2 35 mm/Hg (35-45); ARTERIAL BLOOD GAS PH 7.44 (7.35-7.45); ARTERIAL BLOOD GAS PO2 107 mm/Hg (80-100); ARTERIAL BLOOD GAS TCO2 24.9 mmol/L (22-28)
--- NOTE | 2018-08-03 01:50 | CP.PCM.HP ---
History of Present Illness - History of Present Illness History of Present Illness: History and Physical - Dr Lopez Service CC: Shortness of breath HPI: Patient is a 83 year old male with past medical history of Dementia, Alzheimer's Disease, Parkinson's disease, HTN, DM, CAD status post stent, Systolic CHF who presented to the emergency department for shortness of breath. Patient is a poor historian. No family is at the bedside. Per EMR, patients grandson called EMS for shortness of breath since Tuesday. Per the grandson, patient hasn't taken any medications in 3 months. History limited due to patient's current state. Patient currently resting comfortably on bipap. ROS not obtained. ED course: Lasix 80mg IVP, Albuterol Allergies: NKDA Medical History: Alzheimer's Disease, Parkinson's disease, HTN, DM, CAD status post stent, Systolic CHF, BPH, DM, hypercholesterolemia Medications: See MAR Surgical History: Pacemaker placement, Social History: Unobtainable Family History: Unobtainable Present on Admission - Present on Admission Any Indicators Present on Admission: No Past Patient History - Infectious Disease Hx of Infectious Diseases: None - Past Medical History & Family History Past Medical History?: Yes - Past Social History Smoking Status: Never Smoked - CARDIAC Hx Congestive Heart Failure: Yes Hx Hypercholesterolemia: Yes Hx Hypertension: Yes Hx Pacemaker: Yes - PULMONARY Hx Asthma: Yes - NEUROLOGICAL Hx Alzheimer's Disease: Yes Hx Dementia: Yes Hx Parkinson's Disease: Yes Hx Seizures: No - HEENT Hx HEENT Problems: No - RENAL Hx Chronic Kidney Disease: Yes - ENDOCRINE/METABOLIC Hx Diabetes Mellitus Type 2: Yes - HEMATOLOGICAL/ONCOLOGICAL Hx Human Immunodeficiency Virus (HIV): No - INTEGUMENTARY Hx Dermatological Problems: No - MUSCULOSKELETAL/RHEUMATOLOGICAL Hx Arthritis: Yes - GASTROINTESTINAL Hx Gastrointestinal Disorders: No - GENITOURINARY/GYNECOLOGICAL Hx Sexually Transmitted Disorders: No - PSYCHIATRIC Hx Substance Use: No - SURGICAL HISTORY Hx Coronary Stent: Yes - ANESTHESIA Hx Anesthesia: Yes Hx Anesthesia Reactions: No Meds Allergies/Adverse Reactions: Allergies Allergy/AdvReac Type Severity Reaction Status Date / Time No Known Allergies Allergy Verified 06/10/18 20:07 Physical Exam - Constitutional Appears: In Acute Distress, Chronically Ill - Head Exam Head Exam: ATRAUMATIC, NORMAL INSPECTION - Eye Exam Eye Exam: EOMI, Normal appearance - Respiratory Exam Respiratory Exam: Decreased Breath Sounds, Rales. absent: Clear to Auscultation Bilateral - Cardiovascular Exam Cardiovascular Exam: REGULAR RHYTHM, +S1, +S2, Systolic Murmur - GI/Abdominal Exam GI & Abdominal Exam: Soft. absent: Guarding, Rebound, Rigid, Tenderness - Extremities Exam Extremities exam: Positive for: pedal pulses present. Negative for: calf tenderness - Neurological Exam Neurological exam: Alert - Psychiatric Exam Psychiatric exam: Normal Affect, Normal Mood - Skin Skin Exam: Dry, Normal Color, Warm Results - Vital Signs Recent Vital Signs: Last Vital Signs Temp 97.6 F 08/03/18 01:15 Pulse 75 08/03/18 01:41 Resp 20 08/03/18 01:15 BP 178/83 H 08/03/18 01:15 Pulse Ox 100 08/03/18 01:15 - Labs Result Diagrams: 08/08/18 11:26 08/08/18 11:26 Labs: Laboratory Results - last 24 hr 08/02/18 08/02/18 08/02/18 22:52 23:07 23:07 WBC 6.7 RBC 4.05 L Hgb 11.1 L Hct 33.1 L MCV 81.6 D MCH 27.5 MCHC 33.7 RDW 14.9 H Plt Count 317 MPV 8.0 Neut % (Auto) 71.8 Lymph % (Auto) 16.8 L [place] % (Auto) 10.3 H Eos % (Auto) 0.8 Baso % (Auto) 0.3 Neut # (Auto) 4.8 Lymph # (Auto) 1.1 [place] # (Auto) 0.7 Eos # (Auto) 0.1 Baso # (Auto) 0.0 Puncture Site pCO2 pO2 HCO3 ABG pH ABG Total CO2 ABG O2 Saturation ABG Base Excess ABG Hemoglobin ABG Carboxyhemoglobin POC ABG HHb (Measured) ABG Methemoglobin [place] Test A-a O2 Difference Respiratory Index Hgb O2 Saturation Vent Mode FiO2 Inspiratory BiPAP Expiratory BiPAP Sodium 138 Potassium 5.0 Chloride 102 Carbon Dioxide 27 Anion Gap 14 BUN 15 Creatinine 1.1 Est GFR ( Amer) > 60 Est GFR (Non-Af Amer) > 60 POC Glucose (mg/dL) 273 H Random Glucose 249 H Calcium 9.0 Magnesium 2.0 Total Bilirubin 1.1 AST 21 ALT 31 Alkaline Phosphatase 105 Troponin I < 0.0120 NT-Pro-B Natriuret Pep 23395 H Total Protein 7.1 Albumin 3.4 L Globulin 3.7 Albumin/Globulin Ratio 0.9 L Urine Color Urine Clarity Urine pH Ur Specific [place] Urine Protein Urine Glucose (UA) Urine Ketones Urine Blood Urine Nitrate Urine Bilirubin Urine Urobilinogen Ur Leukocyte Esterase Urine WBC (Auto) Urine RBC (Auto) Urine Bacteria 08/02/18 08/02/18 23:07 23:44 WBC RBC Hgb Hct MCV MCH MCHC RDW Plt Count MPV Neut % (Auto) Lymph % (Auto) [place] % (Auto) Eos % (Auto) Baso % (Auto) Neut # (Auto) Lymph # (Auto) [place] # (Auto) Eos # (Auto) Baso # (Auto) Puncture Site Rr pCO2 35 pO2 107 H HCO3 24.8 ABG pH 7.44 ABG Total CO2 24.9 ABG O2 Saturation 99.2 H ABG Base Excess -0.1 ABG Hemoglobin 10.3 L ABG Carboxyhemoglobin 2.0 H POC ABG HHb (Measured) 0.8 ABG Methemoglobin 1.0 [place] Test Pos A-a O2 Difference 134.0 Respiratory Index 1.3 Hgb O2 Saturation 96.2 Vent Mode Bipap FiO2 40.0 Inspiratory BiPAP 12 Expiratory BiPAP 6 Sodium Potassium Chloride Carbon Dioxide Anion Gap BUN Creatinine Est GFR ( Amer) Est GFR (Non-Af Amer) POC Glucose (mg/dL) Random Glucose Calcium Magnesium Total Bilirubin AST ALT Alkaline Phosphatase Troponin I NT-Pro-B Natriuret Pep Total Protein Albumin Globulin Albumin/Globulin Ratio Urine Color Yellow Urine Clarity Clear Urine pH 5.0 Ur Specific [place] 1.014 Urine Protein 2+ H Urine Glucose (UA) Normal Urine Ketones Negative Urine Blood 1+ H Urine Nitrate Negative Urine Bilirubin Negative Urine Urobilinogen Normal Ur Leukocyte Esterase Neg Urine WBC (Auto) 1 Urine RBC (Auto) 6 H Urine Bacteria Occ H Assessment & Plan - Assessment and Plan (Free Text) Assessment: A/P: Patient is a 83 year old male with past medical history of Alzheimer's Disease, Parkinson's disease, HTN, DM, CAD status post stent, Systolic CHF, pacemaker/AICD who presented to the emergency dept via EMS with shortness of breath x 3 days. Shortness of breath likely due to Acute on Chronic Systolic Congestive Heart Failure -Stable, afebrile -Monitor on telemetry -Patient with pacemaker/AICD -BNP 10,000 on admission -S/P Lasix 80mg IVP in the emergency dept -Last echocardiogram 05/2018 showed ED 30-35%, severely dilated LV, moderate to severe MR (see full report) -CXR showed pulmonary venous congestion (official read pending) -We will continue Lasix 20mg IVP daily -Patient on both lopressor 25mg Q12H and Coreg 6.125mg PO BID, unclear why, will hold lopressor at this time. -Cardiology on consult, Dr Garcia, help appreciated -Daily weights, strict intake/output -Supplemental O2 CAD -Continue ASA 81mg PO daily -Continue Amiodarone 200mg PO daily -Cardiology on consult, help appreciated Hypertension -Continue Norvasc 10mg PO daily -Lisinopril 10mg PO daily, Coreg 6.25mg PO BID -Monitor vitals Diabetes Mellitus, Type 2 -Low dose insulin scale ACHS -Accuchecks ACHS -Last HgA1c 6.2% -Hypoglycemia protocol BPH -Continue Flomax 0.4mg PO daily -Continue Proscar 5mg PO daily History of Parkinson's Disease -Continue Carbidopa/Levodopa 1 tab PO TID -Continue Seroquel 25mg PO HS GI/DVT ppx: -Protonix 40mg IVP daily -Lovenox 40mg SC daily Plan discussed with Dr Jessica Barber DO PGY-2
[2018-08-03] MEDS ORDERED: Glucagon Recombinant 1 mg Inj IM PRN (02:41)
[2018-08-03] MEDS ORDERED: Dextrose 50% SYRINGE Inj (50 ml) IV PRN (02:41)
[2018-08-03] MEDS: (Novolin R) Insulin Human Regular 100 units/ml vial SC SCH ×4 (07:21→22:14)
--- NOTE | 2018-08-03 08:01 | RAD ---
Date of service: 08/02/2018 PROCEDURE: CHEST RADIOGRAPH, 1 VIEW HISTORY: SOB COMPARISON: 06/10/2018 FINDINGS: LUNGS: Interval homogeneous opacity inferior right neal thorax. PLEURA: Interval bilateral small pleural effusions right greater left. No pneumothorax. CARDIOVASCULAR: Cardiomegaly-similar. Interval increased pulmonary venous congestion. Position/ configuration of pacemaker Satisfactory. OSSEOUS STRUCTURES: Thoracic spondylosis and bilateral shoulder arthrosis noted. No gross destructive lesions appreciated VISUALIZED UPPER ABDOMEN: Normal. OTHER FINDINGS: None. IMPRESSION: Interval increased pulmonary venous congestion with prior cardiomegaly. Increasing CHF inferred. Small bilateral pleural effusions. Additional coalescent pulmonary edema primarily right lung base is suspect. A aspiration pneumonitis is another consideration. Clinical correlation recommended. Comments: Study marked for PA review .
[2018-08-03] MEDS: Enoxaparin 40 mg Syringe SC SCH (10:25)
--- NOTE | 2018-08-03 14:44 | CP.PCM.PN ---
Subjective - Date & Time of Evaluation Date of Evaluation: 08/03/18 Time of Evaluation: 14:44 - Subjective Subjective: Jasvir Batista PGY-1, Medicine progress note for Dr. Lopez Pt seen and examined at bedside. Pt is resting comfortably, but easily agitated. Pt is able to answer my questions during times of calm. No acute events overnight. Pt denies chest pain, sob, abdominal pain, n/v/d. A full 12-point ROS was unable to be obtained due to dementia at baseline. Objective - Vital Signs/Intake and Output Vital Signs (last 24 hours): Temp Pulse Resp BP Pulse Ox 98.6 F 66 20 158/69 H 97 08/03/18 08:13 08/03/18 08:13 08/03/18 08:13 08/03/18 10:26 08/03/18 08:13 Intake and Output: 08/03/18 08/03/18 06:59 18:59 Output Total 2850 Balance -2850 - Medications Medications: Current Medications Amiodarone HCl (Cordarone) 200 mg PO DAILY [facility] Last Admin: 08/03/18 10:26 Dose: 200 mg Amlodipine Besylate (Norvasc) 10 mg PO DAILY [facility] Aspirin (Ecotrin) 81 mg PO DAILY [facility] Last Admin: 08/03/18 10:26 Dose: 81 mg Carbidopa/Levodopa (Sinemet 10/100) 1 tab PO TID [facility] Last Admin: 08/03/18 14:38 Dose: 1 tab Carvedilol (Coreg) 6.25 mg PO BID [facility] Last Admin: 08/03/18 10:26 Dose: 6.25 mg Dextrose (Dextrose 50% Inj) 0 ml IV STAT PRN; Protocol PRN Reason: Hypoglycemia Protocol Dextrose (Glutose 15) 0 gm PO ONCE PRN; Protocol PRN Reason: Hypoglycemia Protocol Docusate Sodium (Colace) 100 mg PO TID [facility] Last Admin: 08/03/18 14:38 Dose: 100 mg Enoxaparin Sodium (Lovenox) 40 mg SC DAILY [facility] Last Admin: 08/03/18 10:25 Dose: 40 mg Finasteride (Proscar) 5 mg PO DAILY [facility] Last Admin: 08/03/18 10:26 Dose: 5 mg Furosemide (Lasix) 20 mg IVP DAILY [facility] Last Admin: 08/03/18 10:26 Dose: 20 mg Glucagon (Glucagen Diagnostic Kit) 0 mg IM STAT PRN; Protocol PRN Reason: Hypoglycemia Protocol Dextrose (Dextrose 5% In Water 1000 Ml) 1,000 mls @ 0 mls/hr IV .Q0M PRN; Protocol PRN Reason: Hypoglycemia Protocol Insulin Human Regular (Novolin R) 0 unit SC ACHS [facility]; Protocol Last Admin: 08/03/18 13:09 Dose: 5 units Lisinopril (Zestril) 10 mg PO DAILY [facility] Last Admin: 08/03/18 10:17 Dose: 10 mg Metoprolol Tartrate (Lopressor) 25 mg PO Q12H NEO Pantoprazole Sodium (Protonix Inj) 40 mg IVP DAILY [facility] Last Admin: 08/03/18 10:25 Dose: 40 mg Rosuvastatin Calcium (Crestor) 2.5 mg PO HS NEO Tamsulosin HCl (Flomax) 0.4 mg PO DAILY [facility] Last Admin: 08/03/18 10:29 Dose: 0.4 mg - Labs Labs: 08/02/18 23:07 08/02/18 23:07 - Constitutional Appears: Non-toxic, No Acute Distress - Head Exam Head Exam: ATRAUMATIC, NORMAL INSPECTION - Eye Exam Eye Exam: EOMI, Normal appearance - ENT Exam ENT Exam: Mucous Membranes Moist - Neck Exam Neck Exam: Normal Inspection - Respiratory Exam Respiratory Exam: Decreased Breath Sounds (at the bases), Rales (at the bases), NORMAL BREATHING PATTERN. absent: Wheezes - Cardiovascular Exam Cardiovascular Exam: Tachycardia, +S1, +S2 Additional comments: (+) left upper chest wall PPM - GI/Abdominal Exam GI & Abdominal Exam: Soft, Normal Bowel Sounds. absent: Distended, Firm, Rigid, Tenderness - Extremities Exam Extremities Exam: Pedal Edema. absent: Calf Tenderness, Tenderness - Back Exam Back Exam: NORMAL INSPECTION - Neurological Exam Neurological Exam: Alert, Awake - Psychiatric Exam Psychiatric exam: Agitated - Skin Skin Exam: Dry, Normal Color, Warm Additional comments: (+) ulcer on the right lateral malleolus with dressing; c/d/i; no signs of infection, no active bleeding Assessment and Plan - Assessment and Plan (Free Text) Assessment: Assessment: A/P: Patient is a 83 year old male with past medical history of Alzheimer's Disease, Parkinson's disease, HTN, DM, CAD status post stent, Systolic CHF, pacemaker/AICD who presented to the emergency dept via EMS with shortness of breath x 3 days. Shortness of breath likely due to Acute on Chronic Systolic Congestive Heart Failure -Stable, afebrile -Monitor on telemetry -Patient with pacemaker/AICD -BNP 10,000 on admission -S/P Lasix 80mg IVP in the emergency dept -Last echocardiogram 05/2018 showed ED 30-35%, severely dilated LV, moderate to severe MR (see full report) -CXR (08/03) shows improving CHF. -Lasix 40 mg IVP BID for 1 day, followed by continuing Lasix 20 mg IVP daily -Patient on both lopressor 25mg Q12H and Coreg 6.125mg PO BID, unclear why, will hold lopressor at this time. -Cardiology on consult, Dr. Garcia, help appreciated -Daily weights, strict intake/output -Supplemental O2 Ventricular Tachycardia -Pt reported to have runs of vtach lasting a few seconds this morning. Which spontaneously converted by to NSR. Pt was asymptomatic at that time. -Continue to monitor -Cardiology on consult, Dr. Garcia, recs appreciated CAD -Continue ASA 81mg PO daily -Continue Amiodarone 200mg PO daily -Cardiology on consult, help appreciated Hypertension -Continue Norvasc 10mg PO daily -Lisinopril 10mg PO daily, Coreg 6.25mg PO BID -Monitor vitals Diabetes Mellitus, Type 2 -Low dose insulin scale ACHS -Accuchecks ACHS -Last HgA1c 6.2% -Hypoglycemia protocol BPH -Continue Flomax 0.4mg PO daily -Continue Proscar 5mg PO daily -Pt's conner was removed, due to being on Lasix and hx of BPH bladder scans and straight cath as needed ordered History of Parkinson's Disease -Continue Carbidopa/Levodopa 1 tab PO TID -Continue Seroquel 25mg PO HS GI/DVT ppx: -Protonix 40mg IVP daily -Lovenox 40mg SC daily Case discussed and reviewed with attending physician, Dr. Lopez All medical management as per Dr. Jessica Batista PGY-1
[2018-08-03 15:11] LABS: BASO % 0.6 % (0.0-2.0); EOS # 0.1 K/uL (0.0-0.7); EOS % 1.3 % (0.0-4.0); HEMOGLOBIN 10.1 g/dL (12.0-18.0); LYMPH # 0.7 K/uL (1.0-4.3); MEAN CELL VOLUME 81.2 fL (80.0-94.0); MEAN CORPUSCULAR HEMOGLOBIN 27.5 pg (27.0-31.0); MEAN CORPUSCULAR HGB CONC 33.9 g/dL (33.0-37.0); MEAN PLATELET VOLUME 8.6 fL (7.2-11.7); MONO # 0.6 K/uL (0.0-0.8); MONO % 10.7 % (0.0-10.0); NEUT # 4.4 K/uL (1.8-7.0); NEUT % 75.4 % (50.0-75.0); RBC 3.67 Mil/uL (4.40-5.90); RED CELL DISTRIBUTION WIDTH 14.8 % (11.5-14.5); WHITE BLOOD COUNT 5.8 K/uL (4.8-10.8)
[2018-08-03 15:28] LABS: ALB/GLOB RATIO 0.8 (1.0-2.1); ALBUMIN 3.1 g/dL (3.5-5.0); AST/SGOT 34 U/L (17-59); BLOOD UREA NITROGEN 16 mg/dL (9-20); CALCIUM 8.1 mg/dl (8.6-10.4); GFR NON-AFRICAN AMERICAN > 60
[2018-08-03 15:43] LABS: ALT/SGPT < 6 U/L (21-72)
--- NOTE | 2018-08-03 17:06 | RAD ---
Date of service: 08/03/2018 HISTORY: CHF. COMPARISON: August 02, 2018. TECHNIQUE: Chest PA and lateral FINDINGS: LUNGS: No active pulmonary disease. PLEURA: Decrease in pleural effusions. CARDIOVASCULAR: Interval improvement in pulmonary vascular congestion. Stable cardiomegaly.Position/ configuration of pacemaker Satisfactory. OSSEOUS STRUCTURES: No significant abnormalities. VISUALIZED UPPER ABDOMEN: Normal. OTHER FINDINGS: None. IMPRESSION: Improving CHF
[2018-08-03] MEDS: Magnesium Sulfate 1 gm in D5W 1 GM/100 ML BAG IVPB SCH ×2 (20:28→20:53)
--- NOTE | 2018-08-03 21:00 | CP.CCUPN ---
CCU Subjective - Physician Review Events Since Last Encounter (Free Text): 08/04/18 04:56 The Patient was seen and examined at the bedside, Medical records reviewed, and management issues were discussed and formulated with the house staff. Events reviewed 83 years old Male with PMHx of HTN, Hypercholesterolemia, Hyperlipidemia, Diabetes, Arthritis, Asthma, CAD, CHF, Alzheimer's Disease, Dementia, Parkinson's Disease and Chronic Kidney Disease Who presented to the ER complaining of shortness of breath ongoing for 3 days. According to patient's grandson, patient is noncompliant with any medication at home and has a history of similar presentation. Patient was admitted to the telemetry with exacerbation of COPD and CHF. Started on agressive diuresis with improved saturation, resp status and CXR improved as well. He was transferred to the ICU, given 2 gem of magnesium, 150 mg IV Amiodarone, placed on BIPAP and shortly afterwards he broke and back in base line rhythm with HR 70s. Awake, comfortable, NAD Alert and oriented to self. Breathing unlabored, on room air O2 sat 100% on BIPAP 12/6/60% CCU Objective - Vital Signs / Intake & Output Vital Signs (Last 4 hours): Vital Signs Pulse 08/03/18 17:02 66 Intake and Output (Last 8hrs): Intake & Output 08/03/18 08/03/18 08/03/18 06:59 14:59 22:59 Output Total 2850 1500 Balance -2850 -1500 Output: Urine 2850 1500 Urethral (Gonzalez) 2850 1500 - Physical Exam Physical Exam Limitations: Positive for: Clinical Condition Head: Positive for: Atraumatic, Normocephalic Pupils: Positive for: PERRL Extroacular Muscles: Positive for: EOMI Conjunctiva: Positive for: Normal Mouth: Positive for: Moist Mucous Membranes Neck: Positive for: Normal Range of Motion, Trachea Midline. Negative for: Meningeal Signs, MIDLINE TENDERNESS, Paraspinal Tenderness, JVD, Lymphadenopathy, Bruit, Other Respiratory/Chest: Positive for: Decreased Breath Sounds, Rales, Retracting, Rhonchi, Tachypneic. Negative for: Clear to Auscultation, Good Air Exchange, Respiratory Distress, Accessory Muscle Use, Wheezes Cardiovascular: Positive for: Regular Rate and Rhythm, Normal S1, S2, Peripheal Pulses Present, Tachycardic. Negative for: Irregular Rhythm, Bradycardic Abdomen: Positive for: Normal Bowel Sounds. Negative for: Tenderness, Distention Back: Negative for: CVA Tenderness Lower Extremity: Positive for: Edema, NORMAL PULSES, Normal ROM. Negative for: CALF TENDERNESS, Cyanosis Psychiatric: Positive for: Alert - Medications Active Medications: Active Medications Generic Name Dose Route Start Last Admin Trade Name Freq PRN Reason Stop Dose Admin Amiodarone HCl 200 mg 08/03/18 10:00 08/03/18 10:26 Cordarone PO 200 mg DAILY NEO Administration Amlodipine Besylate 10 mg 08/04/18 10:00 Norvasc PO DAILY NEO Aspirin 81 mg 08/03/18 10:00 08/03/18 10:26 Ecotrin PO 81 mg DAILY NEO Administration Carbidopa/Levodopa 1 tab 08/03/18 10:00 08/03/18 18:00 Sinemet 10/100 PO 1 tab TID NEO Administration Carvedilol 6.25 mg 08/03/18 10:00 08/03/18 18:00 Coreg PO 6.25 mg BID NEO Administration Dextrose 0 ml 08/03/18 02:41 Dextrose 50% Inj IV STAT PRN Hypoglycemia Protocol Protocol Dextrose 0 gm 08/03/18 02:41 Glutose 15 PO ONCE PRN Hypoglycemia Protocol Protocol Docusate Sodium 100 mg 08/03/18 14:00 08/03/18 17:59 Colace PO 100 mg TID NEO Administration Enoxaparin Sodium 40 mg 08/03/18 10:00 08/03/18 10:25 Lovenox SC 40 mg DAILY NEO Administration Finasteride 5 mg 08/03/18 10:00 08/03/18 10:26 Proscar PO 5 mg DAILY NEO Administration Furosemide 20 mg 08/03/18 10:00 08/03/18 10:26 Lasix IVP 20 mg DAILY NEO Administration Furosemide 40 mg 08/04/18 10:00 Lasix IVP 08/04/18 23:59 BID NEO Glucagon 0 mg 08/03/18 02:41 Glucagen Diagnostic Kit IM STAT PRN Hypoglycemia Protocol Protocol Dextrose 1,000 mls @ 0 mls/hr 08/03/18 02:41 Dextrose 5% In Water 1000 Ml IV .Q0M PRN Hypoglycemia Protocol Protocol Per Protocol Magnesium Sulfate/Dextrose 1 gm in 100 mls @ 200 mls/hr 08/03/18 20:30 08/03/18 20:53 Magnesium Sulfate 1 Gm/100 Ml D5w IVPB 08/03/18 21:59 200 mls/hr Q1H NEO Administration Insulin Human Regular 0 unit 08/03/18 07:30 08/03/18 17:20 Novolin R SC 2 units ACHS NEO Administration Protocol Lisinopril 10 mg 08/03/18 10:00 08/03/18 10:17 Zestril PO 10 mg DAILY NEO Administration Metoprolol Tartrate 25 mg 08/03/18 10:00 Lopressor PO Q12H NEO Pantoprazole Sodium 40 mg 08/03/18 10:00 08/03/18 10:25 Protonix Inj IVP 40 mg DAILY ENO Administration Rosuvastatin Calcium 2.5 mg 08/03/18 22:00 Crestor PO HS NEO Tamsulosin HCl 0.4 mg 08/03/18 10:00 08/03/18 10:29 Flomax PO 0.4 mg DAILY NEO Administration - Patient Studies Lab Studies: Lab Studies 08/03/18 08/03/18 08/03/18 Range/Units 17:51 15:03 15:03 WBC 5.8 (4.8-10.8) K/uL RBC 3.67 L (4.40-5.90) Mil/uL Hgb 10.1 L (12.0-18.0) g/dL Hct 29.8 L (35.0-51.0) % MCV 81.2 (80.0-94.0) fL MCH 27.5 (27.0-31.0) pg MCHC 33.9 (33.0-37.0) g/dL RDW 14.8 H (11.5-14.5) % Plt Count 305 (130-400) K/uL MPV 8.6 (7.2-11.7) fL Neut % (Auto) 75.4 H (50.0-75.0) % Lymph % (Auto) 12.0 L (20.0-40.0) % Swift % (Auto) 10.7 H (0.0-10.0) % Eos % (Auto) 1.3 (0.0-4.0) % Baso % (Auto) 0.6 (0.0-2.0) % Neut # (Auto) 4.4 (1.8-7.0) K/uL Lymph # (Auto) 0.7 L (1.0-4.3) K/uL Swift # (Auto) 0.6 (0.0-0.8) K/uL Eos # (Auto) 0.1 (0.0-0.7) K/uL Baso # (Auto) 0.0 (0.0-0.2) K/uL Puncture Site pCO2 (35-45) mm/Hg pO2 (80-100) mm/Hg HCO3 (21-28) mmol/L ABG pH (7.35-7.45) ABG Total CO2 (22-28) mmol/L ABG O2 Saturation (95-98) % ABG Base Excess (-2.0-3.0) mmol/L ABG Hemoglobin (11.7-17.4) g/dL ABG Carboxyhemoglobin (0.5-1.5) % POC ABG HHb (Measured) (0.0-5.0) % ABG Methemoglobin (0.0-3.0) % [place] Test A-a O2 Difference mm/Hg Respiratory Index Hgb O2 Saturation (95.0-98.0) % Vent Mode FiO2 % Inspiratory BiPAP Expiratory BiPAP Sodium 138 (132-148) mmol/L Potassium 4.7 (3.6-5.2) mmol/L Chloride 101 (98-107) mmol/L Carbon Dioxide 30 (22-30) mmol/L Anion Gap 12 (10-20) BUN 16 (9-20) mg/dL Creatinine 1.0 (0.8-1.5) mg/dL Est GFR ( Amer) > 60 Est GFR (Non-Af Amer) > 60 POC Glucose (mg/dL) 249 H (65-110) mg/dL Random Glucose 182 H (75-110) mg/dL Calcium 8.1 L (8.6-10.4) mg/dl Phosphorus 3.8 (2.5-4.5) mg/dL Magnesium 1.6 (1.6-2.3) mg/dL Total Bilirubin 1.2 (0.2-1.3) mg/dL AST 34 (17-59) U/L ALT < 6 L D (21-72) U/L Alkaline Phosphatase 77 (38-126) U/L Troponin I (0.00-0.120) ng/mL NT-Pro-B Natriuret Pep (0-900) pg/mL Total Protein 6.8 (6.3-8.3) g/dL Albumin 3.1 L (3.5-5.0) g/dL Globulin 3.7 (2.2-3.9) gm/dL Albumin/Globulin Ratio 0.8 L (1.0-2.1) Urine Color (YELLOW) Urine Clarity (Clear) Urine pH (5.0-8.0) Ur Specific [place] (1.003-1.030) Urine Protein (NEGATIVE) mg/dL Urine Glucose (UA) (Normal) mg/dL Urine Ketones (NEGATIVE) mg/dL Urine Blood (NEGATIVE) Urine Nitrate (NEGATIVE) Urine Bilirubin (NEGATIVE) Urine Urobilinogen (0.2-1.0) mg/dL Ur Leukocyte Esterase (Negative) Bahman/uL Urine WBC (Auto) (0-5) /hpf Urine RBC (Auto) (0-3) /hpf Urine Bacteria (<OCC) 08/03/18 08/03/18 08/02/18 Range/Units 11:08 06:39 23:44 WBC (4.8-10.8) K/uL RBC (4.40-5.90) Mil/uL Hgb (12.0-18.0) g/dL Hct (35.0-51.0) % MCV (80.0-94.0) fL MCH (27.0-31.0) pg MCHC (33.0-37.0) g/dL RDW (11.5-14.5) % Plt Count (130-400) K/uL MPV (7.2-11.7) fL Neut % (Auto) (50.0-75.0) % Lymph % (Auto) (20.0-40.0) % Swift % (Auto) (0.0-10.0) % Eos % (Auto) (0.0-4.0) % Baso % (Auto) (0.0-2.0) % Neut # (Auto) (1.8-7.0) K/uL Lymph # (Auto) (1.0-4.3) K/uL Swift # (Auto) (0.0-0.8) K/uL Eos # (Auto) (0.0-0.7) K/uL Baso # (Auto) (0.0-0.2) K/uL Puncture Site Rr pCO2 35 (35-45) mm/Hg pO2 107 H (80-100) mm/Hg HCO3 24.8 (21-28) mmol/L ABG pH 7.44 (7.35-7.45) ABG Total CO2 24.9 (22-28) mmol/L ABG O2 Saturation 99.2 H (95-98) % ABG Base Excess -0.1 (-2.0-3.0) mmol/L ABG Hemoglobin 10.3 L (11.7-17.4) g/dL ABG Carboxyhemoglobin 2.0 H (0.5-1.5) % POC ABG HHb (Measured) 0.8 (0.0-5.0) % ABG Methemoglobin 1.0 (0.0-3.0) % [place] Test Pos A-a O2 Difference 134.0 mm/Hg Respiratory Index 1.3 Hgb O2 Saturation 96.2 (95.0-98.0) % Vent Mode Bipap FiO2 40.0 % Inspiratory BiPAP 12 Expiratory BiPAP 6 Sodium (132-148) mmol/L Potassium (3.6-5.2) mmol/L Chloride (98-107) mmol/L Carbon Dioxide (22-30) mmol/L Anion Gap (10-20) BUN (9-20) mg/dL Creatinine (0.8-1.5) mg/dL Est GFR ( Amer) Est GFR (Non-Af Amer) POC Glucose (mg/dL) 377 H 231 H (65-110) mg/dL Random Glucose (75-110) mg/dL Calcium (8.6-10.4) mg/dl Phosphorus (2.5-4.5) mg/dL Magnesium (1.6-2.3) mg/dL Total Bilirubin (0.2-1.3) mg/dL AST (17-59) U/L ALT (21-72) U/L Alkaline Phosphatase (38-126) U/L Troponin I (0.00-0.120) ng/mL NT-Pro-B Natriuret Pep (0-900) pg/mL Total Protein (6.3-8.3) g/dL Albumin (3.5-5.0) g/dL Globulin (2.2-3.9) gm/dL Albumin/Globulin Ratio (1.0-2.1) Urine Color (YELLOW) Urine Clarity (Clear) Urine pH (5.0-8.0) Ur Specific [place] (1.003-1.030) Urine Protein (NEGATIVE) mg/dL Urine Glucose (UA) (Normal) mg/dL Urine Ketones (NEGATIVE) mg/dL Urine Blood (NEGATIVE) Urine Nitrate (NEGATIVE) Urine Bilirubin (NEGATIVE) Urine Urobilinogen (0.2-1.0) mg/dL Ur Leukocyte Esterase (Negative) Bahman/uL Urine WBC (Auto) (0-5) /hpf Urine RBC (Auto) (0-3) /hpf Urine Bacteria (<OCC) 08/02/18 08/02/18 08/02/18 Range/Units 23:07 23:07 23:07 WBC 6.7 (4.8-10.8) K/uL RBC 4.05 L (4.40-5.90) Mil/uL Hgb 11.1 L (12.0-18.0) g/dL Hct 33.1 L (35.0-51.0) % MCV 81.6 D (80.0-94.0) fL MCH 27.5 (27.0-31.0) pg MCHC 33.7 (33.0-37.0) g/dL RDW 14.9 H (11.5-14.5) % Plt Count 317 (130-400) K/uL MPV 8.0 (7.2-11.7) fL Neut % (Auto) 71.8 (50.0-75.0) % Lymph % (Auto) 16.8 L (20.0-40.0) % Swift % (Auto) 10.3 H (0.0-10.0) % Eos % (Auto) 0.8 (0.0-4.0) % Baso % (Auto) 0.3 (0.0-2.0) % Neut # (Auto) 4.8 (1.8-7.0) K/uL Lymph # (Auto) 1.1 (1.0-4.3) K/uL Swift # (Auto) 0.7 (0.0-0.8) K/uL Eos # (Auto) 0.1 (0.0-0.7) K/uL Baso # (Auto) 0.0 (0.0-0.2) K/uL Puncture Site pCO2 (35-45) mm/Hg pO2 (80-100) mm/Hg HCO3 (21-28) mmol/L ABG pH (7.35-7.45) ABG Total CO2 (22-28) mmol/L ABG O2 Saturation (95-98) % ABG Base Excess (-2.0-3.0) mmol/L ABG Hemoglobin (11.7-17.4) g/dL ABG Carboxyhemoglobin (0.5-1.5) % POC ABG HHb (Measured) (0.0-5.0) % ABG Methemoglobin (0.0-3.0) % [place] Test A-a O2 Difference mm/Hg Respiratory Index Hgb O2 Saturation (95.0-98.0) % Vent Mode FiO2 % Inspiratory BiPAP Expiratory BiPAP Sodium 138 (132-148) mmol/L Potassium 5.0 (3.6-5.2) mmol/L Chloride 102 (98-107) mmol/L Carbon Dioxide 27 (22-30) mmol/L Anion Gap 14 (10-20) BUN 15 (9-20) mg/dL Creatinine 1.1 (0.8-1.5) mg/dL Est GFR ( Amer) > 60 Est GFR (Non-Af Amer) > 60 POC Glucose (mg/dL) (65-110) mg/dL Random Glucose 249 H (75-110) mg/dL Calcium 9.0 (8.6-10.4) mg/dl Phosphorus (2.5-4.5) mg/dL Magnesium 2.0 (1.6-2.3) mg/dL Total Bilirubin 1.1 (0.2-1.3) mg/dL AST 21 (17-59) U/L ALT 31 (21-72) U/L Alkaline Phosphatase 105 (38-126) U/L Troponin I < 0.0120 (0.00-0.120) ng/mL NT-Pro-B Natriuret Pep 68670 H (0-900) pg/mL Total Protein 7.1 (6.3-8.3) g/dL Albumin 3.4 L (3.5-5.0) g/dL Globulin 3.7 (2.2-3.9) gm/dL Albumin/Globulin Ratio 0.9 L (1.0-2.1) Urine Color Yellow (YELLOW) Urine Clarity Clear (Clear) Urine pH 5.0 (5.0-8.0) Ur Specific [place] 1.014 (1.003-1.030) Urine Protein 2+ H (NEGATIVE) mg/dL Urine Glucose (UA) Normal (Normal) mg/dL Urine Ketones Negative (NEGATIVE) mg/dL Urine Blood 1+ H (NEGATIVE) Urine Nitrate Negative (NEGATIVE) Urine Bilirubin Negative (NEGATIVE) Urine Urobilinogen Normal (0.2-1.0) mg/dL Ur Leukocyte Esterase Neg (Negative) Bahman/uL Urine WBC (Auto) 1 (0-5) /hpf Urine RBC (Auto) 6 H (0-3) /hpf Urine Bacteria Occ H (<OCC) 08/02/18 Range/Units 22:52 WBC (4.8-10.8) K/uL RBC (4.40-5.90) Mil/uL Hgb (12.0-18.0) g/dL Hct (35.0-51.0) % MCV (80.0-94.0) fL MCH (27.0-31.0) pg MCHC (33.0-37.0) g/dL RDW (11.5-14.5) % Plt Count (130-400) K/uL MPV (7.2-11.7) fL Neut % (Auto) (50.0-75.0) % Lymph % (Auto) (20.0-40.0) % [place] % (Auto) (0.0-10.0) % Eos % (Auto) (0.0-4.0) % Baso % (Auto) (0.0-2.0) % Neut # (Auto) (1.8-7.0) K/uL Lymph # (Auto) (1.0-4.3) K/uL [place] # (Auto) (0.0-0.8) K/uL Eos # (Auto) (0.0-0.7) K/uL Baso # (Auto) (0.0-0.2) K/uL Puncture Site pCO2 (35-45) mm/Hg pO2 (80-100) mm/Hg HCO3 (21-28) mmol/L ABG pH (7.35-7.45) ABG Total CO2 (22-28) mmol/L ABG O2 Saturation (95-98) % ABG Base Excess (-2.0-3.0) mmol/L ABG Hemoglobin (11.7-17.4) g/dL ABG Carboxyhemoglobin (0.5-1.5) % POC ABG HHb (Measured) (0.0-5.0) % ABG Methemoglobin (0.0-3.0) % [place] Test A-a O2 Difference mm/Hg Respiratory Index Hgb O2 Saturation (95.0-98.0) % Vent Mode FiO2 % Inspiratory BiPAP Expiratory BiPAP Sodium (132-148) mmol/L Potassium (3.6-5.2) mmol/L Chloride (98-107) mmol/L Carbon Dioxide (22-30) mmol/L Anion Gap (10-20) BUN (9-20) mg/dL Creatinine (0.8-1.5) mg/dL Est GFR ( Amer) Est GFR (Non-Af Amer) POC Glucose (mg/dL) 273 H (65-110) mg/dL Random Glucose (75-110) mg/dL Calcium (8.6-10.4) mg/dl Phosphorus (2.5-4.5) mg/dL Magnesium (1.6-2.3) mg/dL Total Bilirubin (0.2-1.3) mg/dL AST (17-59) U/L ALT (21-72) U/L Alkaline Phosphatase (38-126) U/L Troponin I (0.00-0.120) ng/mL NT-Pro-B Natriuret Pep (0-900) pg/mL Total Protein (6.3-8.3) g/dL Albumin (3.5-5.0) g/dL Globulin (2.2-3.9) gm/dL Albumin/Globulin Ratio (1.0-2.1) Urine Color (YELLOW) Urine Clarity (Clear) Urine pH (5.0-8.0) Ur Specific [place] (1.003-1.030) Urine Protein (NEGATIVE) mg/dL Urine Glucose (UA) (Normal) mg/dL Urine Ketones (NEGATIVE) mg/dL Urine Blood (NEGATIVE) Urine Nitrate (NEGATIVE) Urine Bilirubin (NEGATIVE) Urine Urobilinogen (0.2-1.0) mg/dL Ur Leukocyte Esterase (Negative) Bahman/uL Urine WBC (Auto) (0-5) /hpf Urine RBC (Auto) (0-3) /hpf Urine Bacteria (<OCC) Laboratory Results - last 24 hr 08/02/18 08/02/18 08/02/18 22:52 23:07 23:07 WBC 6.7 RBC 4.05 L Hgb 11.1 L Hct 33.1 L MCV 81.6 D MCH 27.5 MCHC 33.7 RDW 14.9 H Plt Count 317 MPV 8.0 Neut % (Auto) 71.8 Lymph % (Auto) 16.8 L Swift % (Auto) 10.3 H Eos % (Auto) 0.8 Baso % (Auto) 0.3 Neut # (Auto) 4.8 Lymph # (Auto) 1.1 Swift # (Auto) 0.7 Eos # (Auto) 0.1 Baso # (Auto) 0.0 Puncture Site pCO2 pO2 HCO3 ABG pH ABG Total CO2 ABG O2 Saturation ABG Base Excess ABG Hemoglobin ABG Carboxyhemoglobin POC ABG HHb (Measured) ABG Methemoglobin [place] Test A-a O2 Difference Respiratory Index Hgb O2 Saturation Vent Mode FiO2 Inspiratory BiPAP Expiratory BiPAP Sodium 138 Potassium 5.0 Chloride 102 Carbon Dioxide 27 Anion Gap 14 BUN 15 Creatinine 1.1 Est GFR ( Amer) > 60 Est GFR (Non-Af Amer) > 60 POC Glucose (mg/dL) 273 H Random Glucose 249 H Calcium 9.0 Phosphorus Magnesium 2.0 Total Bilirubin 1.1 AST 21 ALT 31 Alkaline Phosphatase 105 Troponin I < 0.0120 NT-Pro-B Natriuret Pep 49389 H Total Protein 7.1 Albumin 3.4 L Globulin 3.7 Albumin/Globulin Ratio 0.9 L Urine Color Urine Clarity Urine pH Ur Specific [place] Urine Protein Urine Glucose (UA) Urine Ketones Urine Blood Urine Nitrate Urine Bilirubin Urine Urobilinogen Ur Leukocyte Esterase Urine WBC (Auto) Urine RBC (Auto) Urine Bacteria 09/08/02/18 08/03/18 23:07 23:44 06:39 WBC RBC Hgb Hct MCV MCH MCHC RDW Plt Count MPV Neut % (Auto) Lymph % (Auto) [place] % (Auto) Eos % (Auto) Baso % (Auto) Neut # (Auto) Lymph # (Auto) [place] # (Auto) Eos # (Auto) Baso # (Auto) Puncture Site Rr pCO2 35 pO2 107 H HCO3 24.8 ABG pH 7.44 ABG Total CO2 24.9 ABG O2 Saturation 99.2 H ABG Base Excess -0.1 ABG Hemoglobin 10.3 L ABG Carboxyhemoglobin 2.0 H POC ABG HHb (Measured) 0.8 ABG Methemoglobin 1.0 [place] Test Pos A-a O2 Difference 134.0 Respiratory Index 1.3 Hgb O2 Saturation 96.2 Vent Mode Bipap FiO2 40.0 Inspiratory BiPAP 12 Expiratory BiPAP 6 Sodium Potassium Chloride Carbon Dioxide Anion Gap BUN Creatinine Est GFR ( Amer) Est GFR (Non-Af Amer) POC Glucose (mg/dL) 231 H Random Glucose Calcium Phosphorus Magnesium Total Bilirubin AST ALT Alkaline Phosphatase Troponin I NT-Pro-B Natriuret Pep Total Protein Albumin Globulin Albumin/Globulin Ratio Urine Color Yellow Urine Clarity Clear Urine pH 5.0 Ur Specific [place] 1.014 Urine Protein 2+ H Urine Glucose (UA) Normal Urine Ketones Negative Urine Blood 1+ H Urine Nitrate Negative Urine Bilirubin Negative Urine Urobilinogen Normal Ur Leukocyte Esterase Neg Urine WBC (Auto) 1 Urine RBC (Auto) 6 H Urine Bacteria Occ H 08/03/18 08/03/18 08/03/18 11:08 15:03 15:03 WBC 5.8 RBC 3.67 L Hgb 10.1 L Hct 29.8 L MCV 81.2 MCH 27.5 MCHC 33.9 RDW 14.8 H Plt Count 305 MPV 8.6 Neut % (Auto) 75.4 H Lymph % (Auto) 12.0 L [place] % (Auto) 10.7 H Eos % (Auto) 1.3 Baso % (Auto) 0.6 Neut # (Auto) 4.4 Lymph # (Auto) 0.7 L [place] # (Auto) 0.6 Eos # (Auto) 0.1 Baso # (Auto) 0.0 Puncture Site pCO2 pO2 HCO3 ABG pH ABG Total CO2 ABG O2 Saturation ABG Base Excess ABG Hemoglobin ABG Carboxyhemoglobin POC ABG HHb (Measured) ABG Methemoglobin [place] Test A-a O2 Difference Respiratory Index Hgb O2 Saturation Vent Mode FiO2 Inspiratory BiPAP Expiratory BiPAP Sodium 138 Potassium 4.7 Chloride 101 Carbon Dioxide 30 Anion Gap 12 BUN 16 Creatinine 1.0 Est GFR ( Amer) > 60 Est GFR (Non-Af Amer) > 60 POC Glucose (mg/dL) 377 H Random Glucose 182 H Calcium 8.1 L Phosphorus 3.8 Magnesium 1.6 Total Bilirubin 1.2 AST 34 ALT < 6 L D Alkaline Phosphatase 77 Troponin I NT-Pro-B Natriuret Pep Total Protein 6.8 Albumin 3.1 L Globulin 3.7 Albumin/Globulin Ratio 0.8 L Urine Color Urine Clarity Urine pH Ur Specific [place] Urine Protein Urine Glucose (UA) Urine Ketones Urine Blood Urine Nitrate Urine Bilirubin Urine Urobilinogen Ur Leukocyte Esterase Urine WBC (Auto) Urine RBC (Auto) Urine Bacteria 08/03/18 17:51 WBC RBC Hgb Hct MCV MCH MCHC RDW Plt Count MPV Neut % (Auto) Lymph % (Auto) [place] % (Auto) Eos % (Auto) Baso % (Auto) Neut # (Auto) Lymph # (Auto) [place] # (Auto) Eos # (Auto) Baso # (Auto) Puncture Site pCO2 pO2 HCO3 ABG pH ABG Total CO2 ABG O2 Saturation ABG Base Excess ABG Hemoglobin ABG Carboxyhemoglobin POC ABG HHb (Measured) ABG Methemoglobin [place] Test A-a O2 Difference Respiratory Index Hgb O2 Saturation Vent Mode FiO2 Inspiratory BiPAP Expiratory BiPAP Sodium Potassium Chloride Carbon Dioxide Anion Gap BUN Creatinine Est GFR ( Amer) Est GFR (Non-Af Amer) POC Glucose (mg/dL) 249 H Random Glucose Calcium Phosphorus Magnesium Total Bilirubin AST ALT Alkaline Phosphatase Troponin I NT-Pro-B Natriuret Pep Total Protein Albumin Globulin Albumin/Globulin Ratio Urine Color Urine Clarity Urine pH Ur Specific [place] Urine Protein Urine Glucose (UA) Urine Ketones Urine Blood Urine Nitrate Urine Bilirubin Urine Urobilinogen Ur Leukocyte Esterase Urine WBC (Auto) Urine RBC (Auto) Urine Bacteria EKG/Cardiology Studies: Cardiology / EKG Studies 08/02/18 22:46 ELECTROCARDIOGRAM Stat Comment: Mode Of Transportation: BED Reason For Exam: SOB 08/02/18 22:57 ELECTROCARDIOGRAM Stat Comment: Mode Of Transportation: BED Reason For Exam: SOB 08/03/18 20:20 EKG [ELECTROCARDIOGRAM] Stat Comment: Mode Of Transportation: Reason For Exam: vtach Fingerstick Blood Sugar Results: 231 Review of Systems - Constitutional Constitutional: absent: Fever, Chills - Cardiovascular Cardiovascular: absent: Chest Pain, Chest Pain at Rest, Chest Pain with Activity, Claudication, Diaphoresis - Respiratory Respiratory: Cough, Dyspnea, Dyspnea on Exertion. absent: Hemoptysis, Wheezing, Snoring, Stridor - Gastrointestinal Gastrointestinal: UNREMARKABLE. absent: Abdominal Pain Critical Care Progress Note - Extremities/Vascular Does the Patient have a Central Venous Catheter?: No Does the Patient need a Central Venous Catheter?: No Does the Patient have a Gonzalez Catheter?: No Does the Patient need a Gonzalez Catheter?: No - Nutrition Nutrition: Nutrition Category Date Time Status Consistent Carbohydrate [DIET] Diets 08/03/18 Breakfast Active Assessment/Plan (1) Ventricular tachycardia Current Visit: Yes Status: Acute Comment: Transfer to the ICU for hemodynamic and cardiac monitoring Suplement Magnesium STAT LABS/LYTES/CBC, XR, EKG 150 mg IV Amio bolus then Amio drip BIPAP, Monitor Respiratory status ECHO No chest pain, trending Trop level (2) Acute on chronic systolic CHF (congestive heart failure) Current Visit: Yes Status: Acute Comment: Continue diuresis, Furosemide (Lasix) 40 mg IVP BID No chest pain, less dyspnea Trending Trop level Strict I&O, daily Wt Negative fluid balance Xopenex Nebs q8h (3) CAD (coronary artery disease) Current Visit: No Status: Chronic - Assessment and Plan (Free Text) Assessment: Discussed with the family in details diagnosis, treatment plans and alternatives, GI PPx DVT PPx Code status: Full code Total critical care time 45 minutes
[2018-08-03 21:34] LABS: BASO % 0.6 % (0.0-2.0); EOS # 0.1 K/uL (0.0-0.7); HEMOGLOBIN 10.2 g/dL (12.0-18.0); LYMPH % 15.4 % (20.0-40.0); MEAN CELL VOLUME 80.8 fL (80.0-94.0); MEAN CORPUSCULAR HGB CONC 34.6 g/dL (33.0-37.0); MEAN PLATELET VOLUME 7.8 fL (7.2-11.7); MONO # 0.8 K/uL (0.0-0.8); MONO % 12.6 % (0.0-10.0); NEUT # 4.5 K/uL (1.8-7.0); NEUT % 69.4 % (50.0-75.0); RBC 3.66 Mil/uL (4.40-5.90); RED CELL DISTRIBUTION WIDTH 14.6 % (11.5-14.5); WHITE BLOOD COUNT 6.5 K/uL (4.8-10.8)
[2018-08-03 21:58] LABS: CK-MB 0.69 ng/mL (0.0-3.38)
[2018-08-03 22:04] LABS: ALBUMIN 2.9 g/dL (3.5-5.0); ALT/SGPT 21 U/L (21-72); AST/SGOT 11 U/L (17-59); BLOOD UREA NITROGEN 19 mg/dL (9-20); CALCIUM 8.7 mg/dl (8.6-10.4); GFR NON-AFRICAN AMERICAN 41
--- NOTE | 2018-08-03 22:48 | CP.PCM.CON ---
History of Present Illness - History of Present Illness History of Present Illness: 83 M with hx of CAD Chronic systolic CHF admitted for Acute on Chronic systolic CHF Non sustained V Tch Continue IV Lasix Monitor lytes Past Patient History - Infectious Disease Hx of Infectious Diseases: None - Past Medical History & Family History Past Medical History?: Yes - Past Social History Smoking Status: Never Smoked - CARDIAC Hx Congestive Heart Failure: Yes Hx Hypercholesterolemia: Yes Hx Hypertension: Yes Hx Pacemaker: Yes - PULMONARY Hx Asthma: Yes - NEUROLOGICAL Hx Alzheimer's Disease: Yes Hx Dementia: Yes Hx Parkinson's Disease: Yes Hx Seizures: No - HEENT Hx HEENT Problems: No - RENAL Hx Chronic Kidney Disease: Yes - ENDOCRINE/METABOLIC Hx Diabetes Mellitus Type 2: Yes - HEMATOLOGICAL/ONCOLOGICAL Hx Human Immunodeficiency Virus (HIV): No - INTEGUMENTARY Hx Dermatological Problems: No - MUSCULOSKELETAL/RHEUMATOLOGICAL Hx Arthritis: Yes - GASTROINTESTINAL Hx Gastrointestinal Disorders: No - GENITOURINARY/GYNECOLOGICAL Hx Sexually Transmitted Disorders: No - PSYCHIATRIC Hx Substance Use: No - SURGICAL HISTORY Hx Coronary Stent: Yes - ANESTHESIA Hx Anesthesia: Yes Hx Anesthesia Reactions: No Meds Allergies/Adverse Reactions: Allergies Allergy/AdvReac Type Severity Reaction Status Date / Time No Known Allergies Allergy Verified 06/10/18 20:07 - Medications Medications: Current Medications Amiodarone HCl (Cordarone) 200 mg PO DAILY [facility] Last Admin: 08/03/18 10:26 Dose: 200 mg Amlodipine Besylate (Norvasc) 10 mg PO DAILY [facility] Aspirin (Ecotrin) 81 mg PO DAILY [facility] Last Admin: 08/03/18 10:26 Dose: 81 mg Carbidopa/Levodopa (Sinemet 10/100) 1 tab PO TID [facility] Last Admin: 08/03/18 18:00 Dose: 1 tab Carvedilol (Coreg) 6.25 mg PO BID [facility] Last Admin: 08/03/18 18:00 Dose: 6.25 mg Dextrose (Dextrose 50% Inj) 0 ml IV STAT PRN; Protocol PRN Reason: Hypoglycemia Protocol Dextrose (Glutose 15) 0 gm PO ONCE PRN; Protocol PRN Reason: Hypoglycemia Protocol Docusate Sodium (Colace) 100 mg PO TID [facility] Last Admin: 08/03/18 17:59 Dose: 100 mg Enoxaparin Sodium (Lovenox) 40 mg SC DAILY [facility] Last Admin: 08/03/18 10:25 Dose: 40 mg Finasteride (Proscar) 5 mg PO DAILY [facility] Last Admin: 08/03/18 10:26 Dose: 5 mg Furosemide (Lasix) 20 mg IVP DAILY [facility] Last Admin: 08/03/18 10:26 Dose: 20 mg Furosemide (Lasix) 40 mg IVP BID [facility] Stop: 08/04/18 23:59 Glucagon (Glucagen Diagnostic Kit) 0 mg IM STAT PRN; Protocol PRN Reason: Hypoglycemia Protocol Dextrose (Dextrose 5% In Water 1000 Ml) 1,000 mls @ 0 mls/hr IV .Q0M PRN; Protocol PRN Reason: Hypoglycemia Protocol Amiodarone HCl 900 mg/ (Dextrose) 500 mls @ 16.67 mls/hr IV .Q24H ONE; Protocol Stop: 08/05/18 03:19 Amiodarone HCl 900 mg/ (Dextrose) 500 mls @ 33.33 mls/hr IV .Q15H1M ONE; Protocol Stop: 08/04/18 12:02 Last Admin: 08/03/18 21:30 Dose: 33.33 mls/hr Insulin Human Regular (Novolin R) 0 unit SC [facility]; Protocol Last Admin: 08/03/18 22:14 Dose: Not Given Lisinopril (Zestril) 10 mg PO DAILY [facility] Last Admin: 08/03/18 10:17 Dose: 10 mg Metoprolol Tartrate (Lopressor) 25 mg PO Q12H [facility] Last Admin: 08/03/18 22:13 Dose: 25 mg Pantoprazole Sodium (Protonix Inj) 40 mg IVP DAILY [facility] Last Admin: 08/03/18 10:25 Dose: 40 mg Rosuvastatin Calcium (Crestor) 2.5 mg PO HS [facility] Tamsulosin HCl (Flomax) 0.4 mg PO DAILY [facility] Last Admin: 08/03/18 10:29 Dose: 0.4 mg Results - Vital Signs Recent Vital Signs: Last Vital Signs Temp 98.1 F 08/03/18 20:15 Pulse 146 H 08/03/18 21:30 Resp 24 08/03/18 21:30 BP 119/56 L 08/03/18 22:13 Pulse Ox 100 08/03/18 21:30 - Labs Result Diagrams: 08/03/18 21:31 08/03/18 21:31 Labs: Laboratory Results - last 24 hr 08/02/18 08/02/18 08/02/18 22:52 23:07 23:07 WBC 6.7 RBC 4.05 L Hgb 11.1 L Hct 33.1 L MCV 81.6 D MCH 27.5 MCHC 33.7 RDW 14.9 H Plt Count 317 MPV 8.0 Neut % (Auto) 71.8 Lymph % (Auto) 16.8 L [place] % (Auto) 10.3 H Eos % (Auto) 0.8 Baso % (Auto) 0.3 Neut # (Auto) 4.8 Lymph # (Auto) 1.1 [place] # (Auto) 0.7 Eos # (Auto) 0.1 Baso # (Auto) 0.0 Puncture Site pCO2 pO2 HCO3 ABG pH ABG Total CO2 ABG O2 Saturation ABG Base Excess ABG Hemoglobin ABG Carboxyhemoglobin POC ABG HHb (Measured) ABG Methemoglobin [place] Test A-a O2 Difference Respiratory Index Hgb O2 Saturation Vent Mode FiO2 Inspiratory BiPAP Expiratory BiPAP Sodium 138 Potassium 5.0 Chloride 102 Carbon Dioxide 27 Anion Gap 14 BUN 15 Creatinine 1.1 Est GFR ( Amer) > 60 Est GFR (Non-Af Amer) > 60 POC Glucose (mg/dL) 273 H Random Glucose 249 H Calcium 9.0 Phosphorus Magnesium 2.0 Total Bilirubin 1.1 AST 21 ALT 31 Alkaline Phosphatase 105 Total Creatine Kinase CK-MB (Mass) Troponin I < 0.0120 NT-Pro-B Natriuret Pep 46860 H Total Protein 7.1 Albumin 3.4 L Globulin 3.7 Albumin/Globulin Ratio 0.9 L Urine Color Urine Clarity Urine pH Ur Specific [place] Urine Protein Urine Glucose (UA) Urine Ketones Urine Blood Urine Nitrate Urine Bilirubin Urine Urobilinogen Ur Leukocyte Esterase Urine WBC (Auto) Urine RBC (Auto) Urine Bacteria 08/02/18 08/02/18 08/03/18 23:07 23:44 06:39 WBC RBC Hgb Hct MCV MCH MCHC RDW Plt Count MPV Neut % (Auto) Lymph % (Auto) [place] % (Auto) Eos % (Auto) Baso % (Auto) Neut # (Auto) Lymph # (Auto) [place] # (Auto) Eos # (Auto) Baso # (Auto) Puncture Site Rr pCO2 35 pO2 107 H HCO3 24.8 ABG pH 7.44 ABG Total CO2 24.9 ABG O2 Saturation 99.2 H ABG Base Excess -0.1 ABG Hemoglobin 10.3 L ABG Carboxyhemoglobin 2.0 H POC ABG HHb (Measured) 0.8 ABG Methemoglobin 1.0 [place] Test Pos A-a O2 Difference 134.0 Respiratory Index 1.3 Hgb O2 Saturation 96.2 Vent Mode Bipap FiO2 40.0 Inspiratory BiPAP 12 Expiratory BiPAP 6 Sodium Potassium Chloride Carbon Dioxide Anion Gap BUN Creatinine Est GFR ( Amer) Est GFR (Non-Af Amer) POC Glucose (mg/dL) 231 H Random Glucose Calcium Phosphorus Magnesium Total Bilirubin AST ALT Alkaline Phosphatase Total Creatine Kinase CK-MB (Mass) Troponin I NT-Pro-B Natriuret Pep Total Protein Albumin Globulin Albumin/Globulin Ratio Urine Color Yellow Urine Clarity Clear Urine pH 5.0 Ur Specific [place] 1.014 Urine Protein 2+ H Urine Glucose (UA) Normal Urine Ketones Negative Urine Blood 1+ H Urine Nitrate Negative Urine Bilirubin Negative Urine Urobilinogen Normal Ur Leukocyte Esterase Neg Urine WBC (Auto) 1 Urine RBC (Auto) 6 H Urine Bacteria Occ H 08/03/18 08/03/18 08/03/18 11:08 15:03 15:03 WBC 5.8 RBC 3.67 L Hgb 10.1 L Hct 29.8 L MCV 81.2 MCH 27.5 MCHC 33.9 RDW 14.8 H Plt Count 305 MPV 8.6 Neut % (Auto) 75.4 H Lymph % (Auto) 12.0 L [place] % (Auto) 10.7 H Eos % (Auto) 1.3 Baso % (Auto) 0.6 Neut # (Auto) 4.4 Lymph # (Auto) 0.7 L [place] # (Auto) 0.6 Eos # (Auto) 0.1 Baso # (Auto) 0.0 Puncture Site pCO2 pO2 HCO3 ABG pH ABG Total CO2 ABG O2 Saturation ABG Base Excess ABG Hemoglobin ABG Carboxyhemoglobin POC ABG HHb (Measured) ABG Methemoglobin [place] Test A-a O2 Difference Respiratory Index Hgb O2 Saturation Vent Mode FiO2 Inspiratory BiPAP Expiratory BiPAP Sodium 138 Potassium 4.7 Chloride 101 Carbon Dioxide 30 Anion Gap 12 BUN 16 Creatinine 1.0 Est GFR ( Amer) > 60 Est GFR (Non-Af Amer) > 60 POC Glucose (mg/dL) 377 H Random Glucose 182 H Calcium 8.1 L Phosphorus 3.8 Magnesium 1.6 Total Bilirubin 1.2 AST 34 ALT < 6 L D Alkaline Phosphatase 77 Total Creatine Kinase CK-MB (Mass) Troponin I NT-Pro-B Natriuret Pep Total Protein 6.8 Albumin 3.1 L Globulin 3.7 Albumin/Globulin Ratio 0.8 L Urine Color Urine Clarity Urine pH Ur Specific [place] Urine Protein Urine Glucose (UA) Urine Ketones Urine Blood Urine Nitrate Urine Bilirubin Urine Urobilinogen Ur Leukocyte Esterase Urine WBC (Auto) Urine RBC (Auto) Urine Bacteria 08/03/18 08/03/18 08/03/18 17:51 20:54 21:31 WBC 6.5 RBC 3.66 L Hgb 10.2 L Hct 29.6 L MCV 80.8 MCH 28.0 MCHC 34.6 RDW 14.6 H Plt Count 306 MPV 7.8 Neut % (Auto) 69.4 Lymph % (Auto) 15.4 L [place] % (Auto) 12.6 H Eos % (Auto) 2.0 Baso % (Auto) 0.6 Neut # (Auto) 4.5 Lymph # (Auto) 1.0 [place] # (Auto) 0.8 Eos # (Auto) 0.1 Baso # (Auto) 0.0 Puncture Site pCO2 pO2 HCO3 ABG pH ABG Total CO2 ABG O2 Saturation ABG Base Excess ABG Hemoglobin ABG Carboxyhemoglobin POC ABG HHb (Measured) ABG Methemoglobin [place] Test A-a O2 Difference Respiratory Index Hgb O2 Saturation Vent Mode FiO2 Inspiratory BiPAP Expiratory BiPAP Sodium Potassium Chloride Carbon Dioxide Anion Gap BUN Creatinine Est GFR ( Amer) Est GFR (Non-Af Amer) POC Glucose (mg/dL) 249 H 206 H Random Glucose Calcium Phosphorus Magnesium Total Bilirubin AST ALT Alkaline Phosphatase Total Creatine Kinase CK-MB (Mass) Troponin I NT-Pro-B Natriuret Pep Total Protein Albumin Globulin Albumin/Globulin Ratio Urine Color Urine Clarity Urine pH Ur Specific [place] Urine Protein Urine Glucose (UA) Urine Ketones Urine Blood Urine Nitrate Urine Bilirubin Urine Urobilinogen Ur Leukocyte Esterase Urine WBC (Auto) Urine RBC (Auto) Urine Bacteria 08/03/18 21:31 WBC RBC Hgb Hct MCV MCH MCHC RDW Plt Count MPV Neut % (Auto) Lymph % (Auto) [place] % (Auto) Eos % (Auto) Baso % (Auto) Neut # (Auto) Lymph # (Auto) [place] # (Auto) Eos # (Auto) Baso # (Auto) Puncture Site pCO2 pO2 HCO3 ABG pH ABG Total CO2 ABG O2 Saturation ABG Base Excess ABG Hemoglobin ABG Carboxyhemoglobin POC ABG HHb (Measured) ABG Methemoglobin [place] Test A-a O2 Difference Respiratory Index Hgb O2 Saturation Vent Mode FiO2 Inspiratory BiPAP Expiratory BiPAP Sodium 138 Potassium 4.2 Chloride 98 Carbon Dioxide 30 Anion Gap 14 BUN 19 Creatinine 1.6 H Est GFR ( Amer) 50 Est GFR (Non-Af Amer) 41 POC Glucose (mg/dL) Random Glucose 182 H Calcium 8.7 Phosphorus Magnesium Total Bilirubin 0.8 AST 11 L D ALT 21 D Alkaline Phosphatase 87 Total Creatine Kinase 27 L CK-MB (Mass) 0.69 Troponin I < 0.0120 NT-Pro-B Natriuret Pep Total Protein 6.0 L Albumin 2.9 L Globulin 3.1 Albumin/Globulin Ratio 1.0 Urine Color Urine Clarity Urine pH Ur Specific [place] Urine Protein Urine Glucose (UA) Urine Ketones Urine Blood Urine Nitrate Urine Bilirubin Urine Urobilinogen Ur Leukocyte Esterase Urine WBC (Auto) Urine RBC (Auto) Urine Bacteria
[2018-08-03] MEDS: Rosuvastatin Calcium 2.5 mg Tab PO SCH (22:52)
[2018-08-04 02:50] LABS: BASO % 0.4 % (0.0-2.0); EOS # 0.1 K/uL (0.0-0.7); EOS % 2.1 % (0.0-4.0); HEMOGLOBIN 10.5 g/dL (12.0-18.0); LYMPH # 1.1 K/uL (1.0-4.3); LYMPH % 15.7 % (20.0-40.0); MEAN CELL VOLUME 81.5 fL (80.0-94.0); MEAN CORPUSCULAR HEMOGLOBIN 27.9 pg (27.0-31.0); MEAN CORPUSCULAR HGB CONC 34.2 g/dL (33.0-37.0); MEAN PLATELET VOLUME 8.1 fL (7.2-11.7); MONO # 0.8 K/uL (0.0-0.8); MONO % 11.5 % (0.0-10.0); NEUT # 4.8 K/uL (1.8-7.0); NEUT % 70.3 % (50.0-75.0); RBC 3.76 Mil/uL (4.40-5.90); WHITE BLOOD COUNT 6.8 K/uL (4.8-10.8)
[2018-08-04 03:11] LABS: ALB/GLOB RATIO 0.8 (1.0-2.1); ALBUMIN 2.9 g/dL (3.5-5.0); CALCIUM 8.6 mg/dl (8.6-10.4)
[2018-08-04 03:27] LABS: CK-MB 1.5 ng/mL (0.0-3.38); TROPONIN I 0.082 ng/mL (0.00-0.120)
[2018-08-04] MEDS ORDERED: Metoprolol 1 mg/ml Inj IVP ONE (03:32)
[2018-08-04] MEDS: (Novolin R) Insulin Human Regular 100 units/ml vial SC SCH ×5 (08:01→22:30)
--- NOTE | 2018-08-04 09:44 | RAD ---
Chest x-ray single frontal view HISTORY: Pulmonary edema. COMPARISON: 08/03/2018 FINDINGS: Moderate venous congestion. Prominent consolidative opacification in the right infrahilar region and at the left lung base. Small bilateral pleural effusions. Cardiomegaly. Left-sided pacemaker. Calcification at the aortic knob. Degenerative changes in the spine with paravertebral osteophytes. Biapical pleural thickening with upper lobe granulomatous changes. IMPRESSION: Moderate venous congestion. Prominent consolidative opacification in the right infrahilar region and at the left lung base. Small bilateral pleural effusions. Cardiomegaly. Left-sided pacemaker. Calcification at the aortic knob. Degenerative changes in the spine with paravertebral osteophytes. Biapical pleural thickening with upper lobe granulomatous changes.
[2018-08-04] MEDS: Enoxaparin 40 mg Syringe SC SCH (10:25)
--- NOTE | 2018-08-04 11:31 | CARD ---
APPROVED REPORT Date of service: 08/03/2018 EKG Measurement Heart [id number] <Conclusion> Atrial fibrillation with rapid ventricular response Nonspecific intraventricular block T wave abnormality, consider inferolateral ischemia Abnormal ECG
--- NOTE | 2018-08-04 11:32 | CARD ---
APPROVED REPORT Date of service: 08/02/2018 EKG Measurement Heart [id number] <Conclusion> Sinus rhythm with fusion complexes Left axis deviation Inferior-posterior infarct, age undetermined Abnormal ECG
--- NOTE | 2018-08-04 18:55 | CP.PCM.CON ---
History of Present Illness - History of Present Illness History of Present Illness: EP consult Re: tachycardia Case chart imaging and old records reviewed Patient interviewed and examined with daughter at bedside Mr Ruggiero was admitted with shortness of breath and transferred to the ICU for 'ventricular tachycardia' and administred magnesium and amiodarone; the rhythm converted to sinus rhythm Offered no complaints Past medical history significant for systemic hypertension diabetes mellitus coronary artery disease severe ischemic cardiomyopathy biventricular defibrillator implanted and was followed up by Dr. Mcgee Exam Frail without distress Normal venous pressures Normal carotids No goiter Left ICD pocket in the pectoral region Prominent chest wall veins suggestive of occlusion of deeper large veins ?PMI Soft heart sounds' No rubs or murmurs Soft abdomen No edema DP ?? Alert verbalizes and has motor symmetry EKG: sinus biventricular paced rhythm EKG: broad complex tachycardia irregular and monomorphic with no discernible p waves Labs: noted Past Patient History - Infectious Disease Hx of Infectious Diseases: None - Past Medical History & Family History Past Medical History?: Yes - Past Social History Smoking Status: Never Smoked - CARDIAC Hx Congestive Heart Failure: Yes Hx Hypercholesterolemia: Yes Hx Hypertension: Yes - PULMONARY Hx Asthma: Yes - NEUROLOGICAL Hx Alzheimer's Disease: Yes Hx Dementia: Yes Hx Parkinson's Disease: Yes Hx Seizures: No - HEENT Hx HEENT Problems: No - RENAL Hx Chronic Kidney Disease: Yes - ENDOCRINE/METABOLIC Hx Diabetes Mellitus Type 2: Yes - HEMATOLOGICAL/ONCOLOGICAL Hx Human Immunodeficiency Virus (HIV): No - INTEGUMENTARY Hx Dermatological Problems: No - MUSCULOSKELETAL/RHEUMATOLOGICAL Hx Arthritis: Yes - GASTROINTESTINAL Hx Gastrointestinal Disorders: No - GENITOURINARY/GYNECOLOGICAL Hx Sexually Transmitted Disorders: No - PSYCHIATRIC Hx Substance Use: No - SURGICAL HISTORY Hx Coronary Stent: Yes - ANESTHESIA Hx Anesthesia: Yes Hx Anesthesia Reactions: No Meds Allergies/Adverse Reactions: Allergies Allergy/AdvReac Type Severity Reaction Status Date / Time No Known Allergies Allergy Verified 06/10/18 20:07 - Medications Medications: Current Medications Amiodarone HCl (Cordarone) 200 mg PO DAILY [facility] Last Admin: 08/04/18 10:30 Dose: 200 mg Amlodipine Besylate (Norvasc) 10 mg PO DAILY [facility] Last Admin: 08/04/18 10:23 Dose: 10 mg Aspirin (Ecotrin) 81 mg PO DAILY [facility] Last Admin: 08/04/18 10:22 Dose: 81 mg Carbidopa/Levodopa (Sinemet 10/100) 1 tab PO TID [facility] Last Admin: 08/04/18 17:44 Dose: 1 tab Carvedilol (Coreg) 6.25 mg PO BID [facility] Last Admin: 08/04/18 18:34 Dose: Not Given Dextrose (Dextrose 50% Inj) 0 ml IV STAT PRN; Protocol PRN Reason: Hypoglycemia Protocol Dextrose (Glutose 15) 0 gm PO ONCE PRN; Protocol PRN Reason: Hypoglycemia Protocol Docusate Sodium (Colace) 100 mg PO TID [facility] Last Admin: 08/04/18 17:53 Dose: Not Given Enoxaparin Sodium (Lovenox) 40 mg SC DAILY [facility] Last Admin: 08/04/18 10:25 Dose: 40 mg Finasteride (Proscar) 5 mg PO DAILY [facility] Last Admin: 08/04/18 10:22 Dose: 5 mg Furosemide (Lasix) 20 mg IVP DAILY [facility] Last Admin: 08/03/18 10:26 Dose: 20 mg Furosemide (Lasix) 40 mg IVP BID [facility] Stop: 08/04/18 23:59 Last Admin: 08/04/18 17:45 Dose: 40 mg Glucagon (Glucagen Diagnostic Kit) 0 mg IM STAT PRN; Protocol PRN Reason: Hypoglycemia Protocol Dextrose (Dextrose 5% In Water 1000 Ml) 1,000 mls @ 0 mls/hr IV .Q0M PRN; Protocol PRN Reason: Hypoglycemia Protocol Insulin Human Regular (Novolin R) 0 unit SC [facility]; Protocol Last Admin: 08/04/18 16:30 Dose: Not Given Lisinopril (Zestril) 10 mg PO DAILY [facility] Last Admin: 08/04/18 10:22 Dose: 10 mg Metoprolol Tartrate (Lopressor) 25 mg PO Q12H [facility] Last Admin: 08/04/18 10:25 Dose: 25 mg Pantoprazole Sodium (Protonix Inj) 40 mg IVP DAILY [facility] Last Admin: 08/04/18 10:20 Dose: 40 mg Rosuvastatin Calcium (Crestor) 2.5 mg PO HS [facility] Last Admin: 08/03/18 22:52 Dose: 2.5 mg Tamsulosin HCl (Flomax) 0.4 mg PO DAILY [facility] Last Admin: 08/04/18 10:21 Dose: 0.4 mg Results - Vital Signs Recent Vital Signs: Last Vital Signs Temp 97.1 F L 08/04/18 12:00 Pulse 61 08/04/18 17:42 Resp 19 08/04/18 17:42 BP 128/57 L 08/04/18 17:45 Pulse Ox 94 L 08/04/18 17:42 - Labs Result Diagrams: 08/04/18 02:47 08/04/18 02:47 Labs: Laboratory Results - last 24 hr 08/03/18 08/03/18 08/03/18 20:54 21:31 21:31 WBC 6.5 RBC 3.66 L Hgb 10.2 L Hct 29.6 L MCV 80.8 MCH 28.0 MCHC 34.6 RDW 14.6 H Plt Count 306 MPV 7.8 Neut % (Auto) 69.4 Lymph % (Auto) 15.4 L [place] % (Auto) 12.6 H Eos % (Auto) 2.0 Baso % (Auto) 0.6 Neut # (Auto) 4.5 Lymph # (Auto) 1.0 [place] # (Auto) 0.8 Eos # (Auto) 0.1 Baso # (Auto) 0.0 Sodium 138 Potassium 4.2 Chloride 98 Carbon Dioxide 30 Anion Gap 14 BUN 19 Creatinine 1.6 H Est GFR ( Amer) 50 Est GFR (Non-Af Amer) 41 POC Glucose (mg/dL) 206 H Random Glucose 182 H Calcium 8.7 Phosphorus Magnesium Total Bilirubin 0.8 AST 11 L D ALT 21 D Alkaline Phosphatase 87 Total Creatine Kinase 27 L CK-MB (Mass) 0.69 Troponin I < 0.0120 Total Protein 6.0 L Albumin 2.9 L Globulin 3.1 Albumin/Globulin Ratio 1.0 08/04/18 08/04/18 08/04/18 02:47 02:47 07:21 WBC 6.8 RBC 3.76 L Hgb 10.5 L Hct 30.6 L MCV 81.5 MCH 27.9 MCHC 34.2 RDW 15.0 H Plt Count 308 MPV 8.1 Neut % (Auto) 70.3 Lymph % (Auto) 15.7 L [place] % (Auto) 11.5 H Eos % (Auto) 2.1 Baso % (Auto) 0.4 Neut # (Auto) 4.8 Lymph # (Auto) 1.1 [place] # (Auto) 0.8 Eos # (Auto) 0.1 Baso # (Auto) 0.0 Sodium 137 Potassium 4.5 Chloride 98 Carbon Dioxide 30 Anion Gap 14 BUN 23 H Creatinine 1.5 Est GFR ( Amer) 54 Est GFR (Non-Af Amer) 44 POC Glucose (mg/dL) 259 H Random Glucose 221 H Calcium 8.6 Phosphorus 4.1 Magnesium 2.4 H Total Bilirubin 0.8 AST 20 ALT 23 Alkaline Phosphatase 88 Total Creatine Kinase 33 L CK-MB (Mass) 1.50 Troponin I 0.0820 Total Protein 6.2 L Albumin 2.9 L Globulin 3.4 Albumin/Globulin Ratio 0.8 L 08/04/18 08/04/18 11:49 18:25 WBC RBC Hgb Hct MCV MCH MCHC RDW Plt Count MPV Neut % (Auto) Lymph % (Auto) [place] % (Auto) Eos % (Auto) Baso % (Auto) Neut # (Auto) Lymph # (Auto) [place] # (Auto) Eos # (Auto) Baso # (Auto) Sodium Potassium Chloride Carbon Dioxide Anion Gap BUN Creatinine Est GFR ( Amer) Est GFR (Non-Af Amer) POC Glucose (mg/dL) 247 H 255 H Random Glucose Calcium Phosphorus Magnesium Total Bilirubin AST ALT Alkaline Phosphatase Total Creatine Kinase CK-MB (Mass) Troponin I Total Protein Albumin Globulin Albumin/Globulin Ratio Assessment & Plan - Assessment and Plan (Free Text) Assessment: Mr. Ruggiero developed a paroxysmal irregular broad complex tachycardia suggestive of atrial fibrillation with a rapid ventricular response followed by sinus rhyth m and appropriate bi-ventricular pacing The duration of atrial fibrillation is unclear; would continue with amiodarone assuming normal thyroid function; of note the QTc is mildly prolonged and liver enzymes were normal, both need periodic surveillance His thrombotic scores warrant anti-coagulation discounting any evidence of a bleeding diathesis The device seemingly has normal pace and sense function; i would interrogate to ascertain generator status and stored historical arrhythmias Discussed issues prognosis with patients daughter Plan: As outlined
[2018-08-04] MEDS: Rosuvastatin Calcium 2.5 mg Tab PO SCH (21:40)
--- NOTE | 2018-08-04 22:23 | CP.PCM.PN ---
Subjective - Date & Time of Evaluation Date of Evaluation: 08/04/18 Time of Evaluation: 07:55 - Subjective Subjective: Patient seen and evaluated EP consult appreciated A Fib with wide complex tachycardia [place] cath Tuesday to evaluate for ischemia Objective - Vital Signs/Intake and Output Vital Signs (last 24 hours): Temp Pulse Resp BP Pulse Ox 97.8 F 61 18 147/68 94 L 08/04/18 19:14 08/04/18 20:00 08/04/18 19:14 08/04/18 21:41 08/04/18 19:14 Intake and Output: 08/04/18 08/05/18 18:59 06:59 Intake Total 866.6 Output Total 1170 Balance -303.4 - Medications Medications: Current Medications Amiodarone HCl (Cordarone) 200 mg PO DAILY [facility] Last Admin: 08/04/18 10:30 Dose: 200 mg Amlodipine Besylate (Norvasc) 10 mg PO DAILY [facility] Last Admin: 08/04/18 10:23 Dose: 10 mg Aspirin (Ecotrin) 81 mg PO DAILY [facility] Last Admin: 08/04/18 10:22 Dose: 81 mg Carbidopa/Levodopa (Sinemet 10/100) 1 tab PO TID [facility] Last Admin: 08/04/18 17:44 Dose: 1 tab Carvedilol (Coreg) 6.25 mg PO BID [facility] Last Admin: 08/04/18 18:34 Dose: Not Given Dextrose (Dextrose 50% Inj) 0 ml IV STAT PRN; Protocol PRN Reason: Hypoglycemia Protocol Dextrose (Glutose 15) 0 gm PO ONCE PRN; Protocol PRN Reason: Hypoglycemia Protocol Docusate Sodium (Colace) 100 mg PO TID [facility] Last Admin: 08/04/18 17:53 Dose: Not Given Enoxaparin Sodium (Lovenox) 40 mg SC DAILY [facility] Last Admin: 08/04/18 10:25 Dose: 40 mg Finasteride (Proscar) 5 mg PO DAILY [facility] Last Admin: 08/04/18 10:22 Dose: 5 mg Furosemide (Lasix) 20 mg IVP DAILY [facility] Last Admin: 08/03/18 10:26 Dose: 20 mg Furosemide (Lasix) 40 mg IVP BID [facility] Stop: 08/04/18 23:59 Last Admin: 08/04/18 17:45 Dose: 40 mg Glucagon (Glucagen Diagnostic Kit) 0 mg IM STAT PRN; Protocol PRN Reason: Hypoglycemia Protocol Dextrose (Dextrose 5% In Water 1000 Ml) 1,000 mls @ 0 mls/hr IV .Q0M PRN; Protocol PRN Reason: Hypoglycemia Protocol Insulin Human Regular (Novolin R) 0 unit SC ACHS [facility]; Protocol Last Admin: 08/04/18 16:30 Dose: Not Given Lisinopril (Zestril) 10 mg PO DAILY [facility] Last Admin: 08/04/18 10:22 Dose: 10 mg Metoprolol Tartrate (Lopressor) 25 mg PO Q12H [facility] Last Admin: 08/04/18 21:41 Dose: 25 mg Pantoprazole Sodium (Protonix Inj) 40 mg IVP DAILY [facility] Last Admin: 08/04/18 10:20 Dose: 40 mg Rosuvastatin Calcium (Crestor) 2.5 mg PO HS [facility] Last Admin: 08/04/18 21:40 Dose: 2.5 mg Tamsulosin HCl (Flomax) 0.4 mg PO DAILY [facility] Last Admin: 08/04/18 10:21 Dose: 0.4 mg - Labs Labs: 08/04/18 02:47 08/04/18 02:47
[2018-08-05] MEDS: (Novolin R) Insulin Human Regular 100 units/ml vial SC SCH ×4 (08:26→21:17)
[2018-08-05] MEDS: Enoxaparin 40 mg Syringe SC SCH (10:09)
--- NOTE | 2018-08-05 17:33 | CP.PCM.PN ---
Subjective - Date & Time of Evaluation Date of Evaluation: 08/05/18 Time of Evaluation: 07:00 - Subjective Subjective: PGY2 Progress Note for Dr. Lopez Patient seen and examined at bedside. Patient is confused at baseline so full ROS unobtainable. Patient denies any pain and is resting comfortably in bed. Objective - Vital Signs/Intake and Output Vital Signs (last 24 hours): Temp Pulse Resp BP Pulse Ox 98.0 F 66 20 150/68 96 08/05/18 07:00 08/05/18 16:00 08/05/18 07:00 08/05/18 10:00 08/05/18 07:00 Intake and Output: 08/05/18 08/05/18 06:59 18:59 Intake Total 110 480 Output Total 200 Balance 110 280 - Medications Medications: Current Medications Amiodarone HCl (Cordarone) 200 mg PO DAILY [facility] Last Admin: 08/05/18 09:56 Dose: 200 mg Amlodipine Besylate (Norvasc) 10 mg PO DAILY [facility] Last Admin: 08/05/18 09:56 Dose: 10 mg Aspirin (Ecotrin) 81 mg PO DAILY [facility] Last Admin: 08/05/18 09:56 Dose: 81 mg Carbidopa/Levodopa (Sinemet 10/100) 1 tab PO TID [facility] Last Admin: 08/05/18 13:32 Dose: Not Given Carvedilol (Coreg) 6.25 mg PO BID [facility] Last Admin: 08/05/18 09:56 Dose: 6.25 mg Dextrose (Dextrose 50% Inj) 0 ml IV STAT PRN; Protocol PRN Reason: Hypoglycemia Protocol Dextrose (Glutose 15) 0 gm PO ONCE PRN; Protocol PRN Reason: Hypoglycemia Protocol Docusate Sodium (Colace) 100 mg PO TID [facility] Last Admin: 08/05/18 13:31 Dose: Not Given Enoxaparin Sodium (Lovenox) 40 mg SC DAILY [facility] Last Admin: 08/05/18 10:09 Dose: 40 mg Finasteride (Proscar) 5 mg PO DAILY [facility] Last Admin: 08/05/18 09:56 Dose: 5 mg Furosemide (Lasix) 20 mg IVP DAILY [facility] Last Admin: 08/05/18 10:00 Dose: 20 mg Glucagon (Glucagen Diagnostic Kit) 0 mg IM STAT PRN; Protocol PRN Reason: Hypoglycemia Protocol Dextrose (Dextrose 5% In Water 1000 Ml) 1,000 mls @ 0 mls/hr IV .Q0M PRN; Protocol PRN Reason: Hypoglycemia Protocol Insulin Human Regular (Novolin R) 0 unit SC ACHS [facility]; Protocol Last Admin: 08/05/18 12:22 Dose: 4 units Lisinopril (Zestril) 10 mg PO DAILY [facility] Last Admin: 08/05/18 09:30 Dose: 10 mg Metoprolol Tartrate (Lopressor) 25 mg PO Q12H [facility] Last Admin: 08/05/18 10:00 Dose: 25 mg Pantoprazole Sodium (Protonix Inj) 40 mg IVP DAILY [facility] Last Admin: 08/05/18 09:58 Dose: 40 mg Rosuvastatin Calcium (Crestor) 2.5 mg PO HS [facility] Last Admin: 08/04/18 21:40 Dose: 2.5 mg Tamsulosin HCl (Flomax) 0.4 mg PO DAILY [facility] Last Admin: 08/05/18 09:58 Dose: 0.4 mg - Labs Labs: 08/04/18 02:47 08/04/18 02:47 - Additional Findings Additional findings: - Constitutional Appears: In Acute Distress, Chronically Ill - Head Exam Head Exam: ATRAUMATIC, NORMAL INSPECTION - Eye Exam Eye Exam: EOMI, Normal appearance - Respiratory Exam Respiratory Exam: Decreased Breath Sounds, Rales. absent: Clear to Auscultation Bilateral - Cardiovascular Exam Cardiovascular Exam: REGULAR RHYTHM, +S1, +S2, Systolic Murmur - GI/Abdominal Exam GI & Abdominal Exam: Soft. absent: Guarding, Rebound, Rigid, Tenderness - Extremities Exam Extremities exam: Positive for: pedal pulses present. Negative for: calf tenderness - Neurological Exam Neurological exam: Alert - Psychiatric Exam Psychiatric exam: Normal Affect, Normal Mood - Skin Skin Exam: Dry, Normal Color, Warm Assessment and Plan - Assessment and Plan (Free Text) Assessment: A/P: Patient is a 83 year old male with past medical history of Alzheimer's Disease, Parkinson's disease, HTN, DM, CAD status post stent, Systolic CHF, pacemaker/AICD who presented to the emergency dept via EMS with shortness of breath x 3 days. Shortness of breath likely due to Acute on Chronic Systolic Congestive Heart Failure -Stable, afebrile -Monitor on telemetry -Patient with pacemaker/AICD -BNP 10,000 on admission -S/P Lasix 80mg IVP in the emergency dept -Last echocardiogram 05/2018 showed ED 30-35%, severely dilated LV, moderate to severe MR (see full report) -CXR showed pulmonary venous congestion (official read pending) -We will continue Lasix 20mg IVP daily -Patient on both lopressor 25mg Q12H and Coreg 6.125mg PO BID, unclear why, will hold lopressor at this time. -Cardiology on consult, Dr Garcia, help appreciated -Daily weights, strict intake/output -Supplemental O2 Ventricular Tachycardia -patient transferred to ICU on 08/03 given 2 gem of magnesium, 150 mg IV Amiodarone, placed on BIPAP and shortly afterwards he broke and back in base li ne rhythm with HR 70s. -patient transferred back to tele on 08/04 -will need biventricular defibrillator interrogated CAD -Continue ASA 81mg PO daily -Continue Amiodarone 200mg PO daily -Cardiology on consult, help appreciated Hypertension -Continue Norvasc 10mg PO daily -Lisinopril 10mg PO daily, Coreg 6.25mg PO BID -Monitor vitals Diabetes Mellitus, Type 2 -Low dose insulin scale ACHS -Accuchecks ACHS -Last HgA1c 6.2% -Hypoglycemia protocol BPH -Continue Flomax 0.4mg PO daily -Continue Proscar 5mg PO daily History of Parkinson's Disease -Continue Carbidopa/Levodopa 1 tab PO TID -Continue Seroquel 25mg PO HS GI/DVT ppx: -Protonix 40mg IVP daily -Lovenox 40mg SC daily Plan discussed with Dr Lopez
[2018-08-05] MEDS: Rosuvastatin Calcium 2.5 mg Tab PO SCH (21:17)
[2018-08-06] MEDS: (Novolin R) Insulin Human Regular 100 units/ml vial SC SCH ×4 (07:30→21:26)
--- NOTE | 2018-08-06 08:04 | CP.PCM.PN ---
Subjective - Date & Time of Evaluation Date of Evaluation: 08/06/18 Time of Evaluation: 08:00 - Subjective Subjective: PGY2 Progress Note for Dr. Lopez Patient seen and examined at bedside. Patient is confused at baseline so full ROS unobtainable. Patient denies any pain and is resting comfortably in bed. Objective - Vital Signs/Intake and Output Vital Signs (last 24 hours): Temp Pulse Resp BP Pulse Ox 98 F 61 20 164/76 H 97 08/05/18 23:05 08/06/18 04:26 08/05/18 23:05 08/05/18 23:05 08/05/18 23:05 Intake and Output: 08/06/18 08/06/18 06:59 18:59 Output Total 300 Balance -300 - Medications Medications: Current Medications Amiodarone HCl (Cordarone) 200 mg PO DAILY [facility] Last Admin: 08/05/18 09:56 Dose: 200 mg Amlodipine Besylate (Norvasc) 10 mg PO DAILY [facility] Last Admin: 08/05/18 09:56 Dose: 10 mg Aspirin (Ecotrin) 81 mg PO DAILY [facility] Last Admin: 08/05/18 09:56 Dose: 81 mg Carbidopa/Levodopa (Sinemet 10/100) 1 tab PO TID [facility] Last Admin: 08/05/18 17:35 Dose: 1 tab Carvedilol (Coreg) 6.25 mg PO BID [facility] Last Admin: 08/05/18 17:35 Dose: 6.25 mg Dextrose (Dextrose 50% Inj) 0 ml IV STAT PRN; Protocol PRN Reason: Hypoglycemia Protocol Dextrose (Glutose 15) 0 gm PO ONCE PRN; Protocol PRN Reason: Hypoglycemia Protocol Docusate Sodium (Colace) 100 mg PO TID [facility] Last Admin: 08/05/18 17:35 Dose: 100 mg Enoxaparin Sodium (Lovenox) 40 mg SC DAILY [facility] Last Admin: 08/05/18 10:09 Dose: 40 mg Finasteride (Proscar) 5 mg PO DAILY [facility] Last Admin: 08/05/18 09:56 Dose: 5 mg Furosemide (Lasix) 20 mg IVP DAILY [facility] Last Admin: 08/05/18 10:00 Dose: 20 mg Glucagon (Glucagen Diagnostic Kit) 0 mg IM STAT PRN; Protocol PRN Reason: Hypoglycemia Protocol Insulin Human Regular (Novolin R) 0 unit SC [facility]; Protocol Last Admin: 08/05/18 21:17 Dose: Not Given Lisinopril (Zestril) 10 mg PO DAILY [facility] Last Admin: 08/05/18 09:30 Dose: 10 mg Metoprolol Tartrate (Lopressor) 25 mg PO Q12H [facility] Last Admin: 08/05/18 21:17 Dose: Not Given Pantoprazole Sodium (Protonix Inj) 40 mg IVP DAILY [facility] Last Admin: 08/05/18 09:58 Dose: 40 mg Rosuvastatin Calcium (Crestor) 2.5 mg PO HS [facility] Last Admin: 08/05/18 21:17 Dose: Not Given Tamsulosin HCl (Flomax) 0.4 mg PO DAILY [facility] Last Admin: 08/05/18 09:58 Dose: 0.4 mg - Labs Labs: 08/04/18 02:47 08/04/18 02:47 - Additional Findings Additional findings: - Constitutional Appears: In Acute Distress, Chronically Ill - Head Exam Head Exam: ATRAUMATIC, NORMAL INSPECTION - Eye Exam Eye Exam: EOMI, Normal appearance - Respiratory Exam Respiratory Exam: Decreased Breath Sounds, Rales. absent: Clear to Auscultation Bilateral - Cardiovascular Exam Cardiovascular Exam: REGULAR RHYTHM, +S1, +S2, Systolic Murmur - GI/Abdominal Exam GI & Abdominal Exam: Soft. absent: Guarding, Rebound, Rigid, Tenderness - Extremities Exam Extremities exam: Positive for: pedal pulses present. Negative for: calf tenderness - Neurological Exam Neurological exam: Alert - Psychiatric Exam Psychiatric exam: Normal Affect, Normal Mood - Skin Skin Exam: Dry, Normal Color, Warm Assessment and Plan - Assessment and Plan (Free Text) Assessment: A/P: Patient is a 83 year old male with past medical history of Alzheimer's Disease, Parkinson's disease, HTN, DM, CAD status post stent, Systolic CHF, pacemaker/AICD who presented to the emergency dept via EMS with shortness of breath x 3 days. Shortness of breath likely due to Acute on Chronic Systolic Congestive Heart Failure -Stable, afebrile -Monitor on telemetry -Patient with pacemaker/AICD -BNP 10,000 on admission -S/P Lasix 80mg IVP in the emergency dept -Last echocardiogram 05/2018 showed ED 30-35%, severely dilated LV, moderate to severe MR (see full report) -CXR showed pulmonary venous congestion (official read pending) -We will continue Lasix 20mg IVP daily -Patient on both lopressor 25mg Q12H and Coreg 6.125mg PO BID, unclear why, will hold lopressor at this time. -Cardiology on consult, Dr Garcia, help appreciated -Daily weights, strict intake/output -Supplemental O2 Ventricular Tachycardia- resolved -patient transferred to ICU on 08/03 given 2 gem of magnesium, 150 mg IV Amiodarone, placed on BIPAP and shortly afterwards he broke and back in base line rhythm with HR 70s. -patient transferred back to tele on 08/04 -Amiodarone 200mg po daily -will need biventricular defibrillator interrogated CAD -Continue ASA 81mg PO daily -Continue Amiodarone 200mg PO daily -Cardiology on consult, help appreciated Hypertension -Continue Norvasc 10mg PO daily -Lisinopril 10mg PO daily, Coreg 6.25mg PO BID -Monitor vitals Diabetes Mellitus, Type 2 -Low dose insulin scale ACHS -Accuchecks ACHS -Last HgA1c 6.2% -Hypoglycemia protocol BPH -Continue Flomax 0.4mg PO daily -Continue Proscar 5mg PO daily History of Parkinson's Disease -Continue Carbidopa/Levodopa 1 tab PO TID -Continue Seroquel 25mg PO HS GI/DVT ppx: -Protonix 40mg IVP daily -Lovenox 40mg SC daily Plan discussed with Dr Lopez
--- NOTE | 2018-08-06 08:10 | CP.PCM.PN ---
Subjective - Date & Time of Evaluation Date of Evaluation: 08/05/18 Time of Evaluation: 19:20 - Subjective Subjective: Patient seen and evaluated Difficult to obtain history Not in distress Physical Examination - Additional Findings Additional findings: - Constitutional Appears: In Acute Distress, Chronically Ill - Head Exam Head Exam: ATRAUMATIC, NORMAL INSPECTION - Eye Exam Eye Exam: EOMI, Normal appearance - Respiratory Exam Respiratory Exam: Decreased Breath Sounds, Rales. absent: Clear to Auscultation Bilateral - Cardiovascular Exam Cardiovascular Exam: REGULAR RHYTHM, +S1, +S2, Systolic Murmur - GI/Abdominal Exam GI & Abdominal Exam: Soft. absent: Guarding, Rebound, Rigid, Tenderness - Extremities Exam Extremities exam: Positive for: pedal pulses present. Negative for: calf tenderness - Neurological Exam Neurological exam: Alert - Psychiatric Exam Psychiatric exam: Normal Affect, Normal Mood - Skin Skin Exam: Dry, Normal Color, Warm Assessment and Plan - Assessment and Plan (Free Text) Assessment: A/P: Patient is a 83 year old male with past medical history of Alzheimer's Disease, Parkinson's disease, HTN, DM, CAD status post stent, Systolic CHF, pacemaker/AICD who presented to the emergency dept via EMS with shortness of breath x 3 days. Shortness of breath likely due to Acute on Chronic Systolic Congestive Heart Failure -Stable, afebrile -Monitor on telemetry -Patient with pacemaker/AICD -BNP 10,000 on admission -S/P Lasix 80mg IVP in the emergency dept -Last echocardiogram 05/2018 showed ED 30-35%, severely dilated LV, moderate to severe MR (see full report) -CXR showed pulmonary venous congestion (official read pending) -We will continue Lasix 20mg IVP daily -Patient on both lopressor 25mg Q12H and Coreg 6.125mg PO BID, unclear why, will hold lopressor at this time. -Cardiology on consult, Dr Garcia, help appreciated -Daily weights, strict intake/output -Supplemental O2 Ventricular Tachycardia -patient transferred to ICU on 08/03 given 2 gem of magnesium, 150 mg IV Amiodarone, placed on BIPAP and shortly afterwards he broke and back in base line rhythm with HR 70s. -patient transferred back to tele on 08/04 -will need biventricular defibrillator interrogated CAD -Continue ASA 81mg PO daily -Continue Amiodarone 200mg PO daily -Cardiology on consult, help appreciated Hypertension -Continue Norvasc 10mg PO daily -Lisinopril 10mg PO daily, Coreg 6.25mg PO BID -Monitor vitals Diabetes Mellitus, Type 2 -Low dose insulin scale ACHS -Accuchecks ACHS -Last HgA1c 6.2% -Hypoglycemia protocol BPH -Continue Flomax 0.4mg PO daily -Continue Proscar 5mg PO daily History of Parkinson's Disease -Continue Carbidopa/Levodopa 1 tab PO TID -Continue Seroquel 25mg PO HS GI/DVT ppx: -Protonix 40mg IVP daily -Lovenox 40mg SC daily Assessment and Plan: I melissa CMP with low EF s/p AICD Acute on Chronic systolic CHF A Fib with wide complex tachycardia Due to Az Dementia not a candidate for custodial anticoagulation Continue Medical management Stop Lopressor. continue Coreg and Amiadorone Objective - Vital Signs/Intake and Output Vital Signs (last 24 hours): Temp Pulse Resp BP Pulse Ox 98 F 61 20 164/76 H 97 08/05/18 23:05 08/06/18 04:26 08/05/18 23:05 08/05/18 23:05 08/05/18 23:05 Intake and Output: 08/06/18 08/06/18 06:59 18:59 Output Total 300 Balance -300 - Medications Medications: Current Medications Amiodarone HCl (Cordarone) 200 mg PO DAILY [facility] Last Admin: 08/05/18 09:56 Dose: 200 mg Amlodipine Besylate (Norvasc) 10 mg PO DAILY [facility] Last Admin: 08/05/18 09:56 Dose: 10 mg Aspirin (Ecotrin) 81 mg PO DAILY [facility] Last Admin: 08/05/18 09:56 Dose: 81 mg Carbidopa/Levodopa (Sinemet 10/100) 1 tab PO TID [facility] Last Admin: 08/05/18 17:35 Dose: 1 tab Carvedilol (Coreg) 6.25 mg PO BID [facility] Last Admin: 08/05/18 17:35 Dose: 6.25 mg Dextrose (Dextrose 50% Inj) 0 ml IV STAT PRN; Protocol PRN Reason: Hypoglycemia Protocol Dextrose (Glutose 15) 0 gm PO ONCE PRN; Protocol PRN Reason: Hypoglycemia Protocol Docusate Sodium (Colace) 100 mg PO TID [facility] Last Admin: 08/05/18 17:35 Dose: 100 mg Enoxaparin Sodium (Lovenox) 40 mg SC DAILY [facility] Last Admin: 08/05/18 10:09 Dose: 40 mg Finasteride (Proscar) 5 mg PO DAILY [facility] Last Admin: 08/05/18 09:56 Dose: 5 mg Furosemide (Lasix) 20 mg IVP DAILY [facility] Last Admin: 08/05/18 10:00 Dose: 20 mg Glucagon (Glucagen Diagnostic Kit) 0 mg IM STAT PRN; Protocol PRN Reason: Hypoglycemia Protocol Insulin Human Regular (Novolin R) 0 [facility] SC [facility]; Protocol Last Admin: 08/05/18 21:17 Dose: Not Given Lisinopril (Zestril) 10 mg PO DAILY [facility] Last Admin: 08/05/18 09:30 Dose: 10 mg Metoprolol Tartrate (Lopressor) 25 mg PO Q12H [facility] Last Admin: 08/05/18 21:17 Dose: Not Given Pantoprazole Sodium (Protonix Inj) 40 mg IVP DAILY [facility] Last Admin: 08/05/18 09:58 Dose: 40 mg Rosuvastatin Calcium (Crestor) 2.5 mg PO HS [facility] Last Admin: 08/05/18 21:17 Dose: Not Given Tamsulosin HCl (Flomax) 0.4 mg PO DAILY [facility] Last Admin: 08/05/18 09:58 Dose: 0.4 mg - Labs Labs: 08/04/18 02:47 08/04/18 02:47
[2018-08-06] MEDS: Enoxaparin 40 mg Syringe SC SCH (09:41)
[2018-08-06 11:49] LABS: BASO % 0.4 % (0.0-2.0); EOS # 0.1 K/uL (0.0-0.7); EOS % 1.5 % (0.0-4.0); HEMOGLOBIN 11.3 g/dL (12.0-18.0); LYMPH # 1.3 K/uL (1.0-4.3); LYMPH % 20.1 % (20.0-40.0); MEAN CELL VOLUME 80.7 fL (80.0-94.0); MEAN CORPUSCULAR HEMOGLOBIN 27.6 pg (27.0-31.0); MEAN CORPUSCULAR HGB CONC 34.2 g/dL (33.0-37.0); MEAN PLATELET VOLUME 7.8 fL (7.2-11.7); MONO # 0.7 K/uL (0.0-0.8); MONO % 11.3 % (0.0-10.0); NEUT # 4.2 K/uL (1.8-7.0); NEUT % 66.7 % (50.0-75.0); NRBC % 0.1 % (0.0-2.0); RBC 4.1 Mil/uL (4.40-5.90); WHITE BLOOD COUNT 6.3 K/uL (4.8-10.8)
[2018-08-06 12:07] LABS: ALBUMIN 3.1 g/dL (3.5-5.0); CALCIUM 8.8 mg/dl (8.6-10.4)
[2018-08-06] MEDS: Rosuvastatin Calcium 2.5 mg Tab PO SCH (21:26)
--- NOTE | 2018-08-06 21:47 | CP.PCM.PN ---
Subjective - Date & Time of Evaluation Date of Evaluation: 08/06/18 Time of Evaluation: 13:05 - Subjective Subjective: Patient seen and evaluated Not in distress Physical Examination - Additional Findings Additional findings: - Constitutional Appears: In Acute Distress, Chronically Ill - Head Exam Head Exam: ATRAUMATIC, NORMAL INSPECTION - Eye Exam Eye Exam: EOMI, Normal appearance - Respiratory Exam Respiratory Exam: Decreased Breath Sounds, Rales. absent: Clear to Auscultation Bilateral - Cardiovascular Exam Cardiovascular Exam: REGULAR RHYTHM, +S1, +S2, Systolic Murmur - GI/Abdominal Exam GI & Abdominal Exam: Soft. absent: Guarding, Rebound, Rigid, Tenderness - Extremities Exam Extremities exam: Positive for: pedal pulses present. Negative for: calf tenderness - Neurological Exam Neurological exam: Alert - Psychiatric Exam Psychiatric exam: Normal Affect, Normal Mood - Skin Skin Exam: Dry, Normal Color, Warm Assessment and Plan - Assessment and Plan (Free Text) Assessment: A/P: Patient is a 83 year old male with past medical history of Alzheimer's Disease, Parkinson's disease, HTN, DM, CAD status post stent, Systolic CHF, pacemaker/AICD who presented to the emergency dept via EMS with shortness of breath x 3 days. Shortness of breath likely due to Acute on Chronic Systolic Congestive Heart Failure -Stable, afebrile -Monitor on telemetry -Patient with pacemaker/AICD -BNP 10,000 on admission -S/P Lasix 80mg IVP in the emergency dept -Last echocardiogram 05/2018 showed ED 30-35%, severely dilated LV, moderate to severe MR (see full report) -CXR showed pulmonary venous congestion (official read pending) -We will continue Lasix 20mg IVP daily -Patient on both lopressor 25mg Q12H and Coreg 6.125mg PO BID, unclear why, will hold lopressor at this time. -Cardiology on consult, Dr Garcia, help appreciated -Daily weights, strict intake/output -Supplemental O2 Ventricular Tachycardia -patient transferred to ICU on 08/03 given 2 gem of magnesium, 150 mg IV Amiodarone, placed on BIPAP and shortly afterwards he broke and back in base line rhythm with HR 70s. -patient transferred back to tele on 08/04 -will need biventricular defibrillator interrogated CAD -Continue ASA 81mg PO daily -Continue Amiodarone 200mg PO daily -Cardiology on consult, help appreciated Hypertension -Continue Norvasc 10mg PO daily -Lisinopril 10mg PO daily, Coreg 6.25mg PO BID -Monitor vitals Diabetes Mellitus, Type 2 -Low dose insulin scale ACHS -Accuchecks ACHS -Last HgA1c 6.2% -Hypoglycemia protocol BPH -Continue Flomax 0.4mg PO daily -Continue Proscar 5mg PO daily History of Parkinson's Disease -Continue Carbidopa/Levodopa 1 tab PO TID -Continue Seroquel 25mg PO HS GI/DVT ppx: -Protonix 40mg IVP daily -Lovenox 40mg SC daily Assessment and Plan: I melissa CMP with low EF s/p AICD Acute on Chronic systolic CHF A Fib with wide complex tachycardia Due to [place] Dementia not a candidate for assisted anticoagulation Continue Medical management Stop Lopressor. continue Coreg and Amiadorone Cardiac cath tomorrow to assess CAD Objective - Vital Signs/Intake and Output Vital Signs (last 24 hours): Temp Pulse Resp BP Pulse Ox 97.7 F 61 20 136/64 95 08/06/18 15:15 08/06/18 15:51 08/06/18 15:15 08/06/18 15:15 08/06/18 15:15 Intake and Output: 08/06/18 08/07/18 18:59 06:59 Intake Total 22 Balance 22 - Medications Medications: Current Medications Amiodarone HCl (Cordarone) 200 mg PO DAILY [facility] Last Admin: 08/06/18 09:40 Dose: 200 mg Amlodipine Besylate (Norvasc) 10 mg PO DAILY [facility] Last Admin: 08/06/18 09:40 Dose: 10 mg Aspirin (Ecotrin) 81 mg PO DAILY [facility] Last Admin: 08/06/18 09:40 Dose: 81 mg Carbidopa/Levodopa (Sinemet 10/100) 1 tab PO TID [facility] Last Admin: 08/06/18 17:36 Dose: 1 tab Carvedilol (Coreg) 6.25 mg PO BID [facility] Last Admin: 08/06/18 17:36 Dose: 6.25 mg Dextrose (Dextrose 50% Inj) 0 ml IV STAT PRN; Protocol PRN Reason: Hypoglycemia Protocol Dextrose (Glutose 15) 0 gm PO ONCE PRN; Protocol PRN Reason: Hypoglycemia Protocol Docusate Sodium (Colace) 100 mg PO TID [facility] Last Admin: 08/06/18 17:36 Dose: 100 mg Enoxaparin Sodium (Lovenox) 40 mg SC DAILY [facility] Last Admin: 08/06/18 09:41 Dose: 40 mg Finasteride (Proscar) 5 mg PO DAILY [facility] Last Admin: 08/06/18 09:40 Dose: 5 mg Furosemide (Lasix) 20 mg IVP DAILY [facility] Last Admin: 08/06/18 09:40 Dose: 20 mg Glucagon (Glucagen Diagnostic Kit) 0 mg IM STAT PRN; Protocol PRN Reason: Hypoglycemia Protocol Insulin Human Regular (Novolin R) 0 unit SC [facility]; Protocol Last Admin: 08/06/18 21:26 Dose: Not Given Lisinopril (Zestril) 10 mg PO DAILY [facility] Last Admin: 08/06/18 09:40 Dose: 10 mg Pantoprazole Sodium (Protonix Inj) 40 mg IVP DAILY [facility] Last Admin: 08/06/18 09:45 Dose: 40 mg Rosuvastatin Calcium (Crestor) 2.5 mg PO HS [facility] Last Admin: 08/06/18 21:26 Dose: Not Given Tamsulosin HCl (Flomax) 0.4 mg PO DAILY [facility] Last Admin: 08/06/18 09:40 Dose: 0.4 mg - Labs Labs: 08/06/18 11:38 08/06/18 11:38
[2018-08-07] MEDS: (Novolin R) Insulin Human Regular 100 units/ml vial SC SCH ×4 (07:57→21:58)
--- NOTE | 2018-08-07 10:01 | CP.PCM.PN ---
Subjective - Date & Time of Evaluation Date of Evaluation: 08/07/18 Time of Evaluation: 09:45 - Subjective Subjective: Jasvir Batista PGY-1, Medicine progress note for Dr. Lopez Pt was seen and examined at bedside. Pt is in no acute distress and resting comfortably. Pt becomes easily agitated when interviewed, and full ROS is unobtainable. However, pt denies headache, fever, chills, chest pain, sob, abdominal pain, n/v/d. Pt reports that he is hungry and would like to eat. Nurse contacted for assistance with eating. Objective - Vital Signs/Intake and Output Vital Signs (last 24 hours): Temp Pulse Resp BP Pulse Ox 98.0 F 60 20 161/72 H 96 08/07/18 09:47 08/07/18 09:47 08/07/18 09:47 08/07/18 09:47 08/07/18 09:47 - Medications Medications: Current Medications Amiodarone HCl (Cordarone) 200 mg PO DAILY [facility] Last Admin: 08/06/18 09:40 Dose: 200 mg Amlodipine Besylate (Norvasc) 10 mg PO DAILY [facility] Last Admin: 08/06/18 09:40 Dose: 10 mg Aspirin (Ecotrin) 81 mg PO DAILY [facility] Last Admin: 08/06/18 09:40 Dose: 81 mg Carbidopa/Levodopa (Sinemet ) 1 tab PO TID [facility] Last Admin: 08/06/18 17:36 Dose: 1 tab Carvedilol (Coreg) 6.25 mg PO BID [facility] Last Admin: 08/06/18 17:36 Dose: 6.25 mg Dextrose (Dextrose 50% Inj) 0 ml IV STAT PRN; Protocol PRN Reason: Hypoglycemia Protocol Dextrose (Glutose 15) 0 gm PO ONCE PRN; Protocol PRN Reason: Hypoglycemia Protocol Docusate Sodium (Colace) 100 mg PO TID [facility] Last Admin: 08/06/18 17:36 Dose: 100 mg Enoxaparin Sodium (Lovenox) 40 mg SC DAILY [facility] Last Admin: 08/06/18 09:41 Dose: 40 mg Finasteride (Proscar) 5 mg PO DAILY [facility] Last Admin: 08/06/18 09:40 Dose: 5 mg Furosemide (Lasix) 20 mg IVP DAILY [facility] Last Admin: 08/06/18 09:40 Dose: 20 mg Glucagon (Glucagen Diagnostic Kit) 0 mg IM STAT PRN; Protocol PRN Reason: Hypoglycemia Protocol Insulin Human Regular (Novolin R) 0 unit SC ACHS [facility]; Protocol Last Admin: 08/07/18 07:57 Dose: Not Given Lisinopril (Zestril) 10 mg PO DAILY [facility] Last Admin: 08/06/18 09:40 Dose: 10 mg Pantoprazole Sodium (Protonix Inj) 40 mg IVP DAILY [facility] Last Admin: 08/06/18 09:45 Dose: 40 mg Rosuvastatin Calcium (Crestor) 2.5 mg PO HS [facility] Last Admin: 08/06/18 21:26 Dose: Not Given Tamsulosin HCl (Flomax) 0.4 mg PO DAILY [facility] Last Admin: 08/06/18 09:40 Dose: 0.4 mg - Labs Labs: 08/06/18 11:38 08/06/18 11:38 - Constitutional Appears: Non-toxic, No Acute Distress - Head Exam Head Exam: NORMAL INSPECTION, NORMOCEPHALIC - Eye Exam Eye Exam: EOMI, Normal appearance - ENT Exam ENT Exam: Mucous Membranes Moist - Neck Exam Neck Exam: Normal Inspection - Respiratory Exam Respiratory Exam: Decreased Breath Sounds (as the bases), Rales (at the bases bilaterally) - Cardiovascular Exam Cardiovascular Exam: +S1, +S2 - GI/Abdominal Exam GI & Abdominal Exam: Soft, Normal Bowel Sounds. absent: Firm, Guarding, Rigid, Tenderness, Rebound - Extremities Exam Extremities Exam: Normal Inspection. absent: Calf Tenderness, Pedal Edema, Tenderness Additional comments: (+) resting tremor bilaterally upper extremities - Back Exam Back Exam: NORMAL INSPECTION - Neurological Exam Neurological Exam: Awake - Psychiatric Exam Psychiatric exam: Agitated, Anxious, Flat Affect - Skin Skin Exam: Dry, Normal Color, Warm Additional comments: (+) right lateral malleous ulcer with dressing; c/d/i; no evidence of bleeding Assessment and Plan - Assessment and Plan (Free Text) Assessment: A/P: Patient is a 83 year old male with past medical history of Alzheimer's Disease, Parkinson's disease, HTN, DM, CAD status post stent, Systolic CHF, pacemaker/AICD who presented to the emergency dept via EMS with shortness of breath x 3 days. Shortness of breath likely due to Acute on Chronic Systolic Congestive Heart Failure -Stable, afebrile -Monitor on telemetry -Patient with pacemaker/AICD -BNP 10,000 on admission -Last echocardiogram 05/2018 showed ED 30-35%, severely dilated LV, moderate to severe MR (see full report) -Continue Lasix 20mg IVP daily -Patient on both lopressor 25mg Q12H and Coreg 6.125mg PO BID, unclear why, will hold lopressor at this time. -Cardiology on consult, Dr Garcia, help appreciated; cardiac catheterization for atrial fibrillation with wide complex tachycarda - pt underwent cardiac catheterization today (08/07) - well tolerated - coronaries are normal, EF is 20-25%, EDP is 12 -Daily weights, strict intake/output -Supplemental O2 Ventricular Tachycardia- resolved -patient transferred to ICU on 08/03 given 2 gm of magnesium, 150 mg IV Amiodarone, placed on BIPAP and shortly afterwards he broke and back in base line rhythm with HR 70s. -patient transferred back to tele on 08/04 -continue Amiodarone 200mg po daily -will need biventricular defibrillator interrogated - prior records reviewed as to what kind of device pt has, but unrevealing - will f/u with family Diabetic right lateral ankle ulcer - podiatry consulted, Dr. Frey, recs appreciated CAD -Continue ASA 81mg PO daily -Continue Amiodarone 200mg PO daily -Cardiology on consult, help appreciated Hypertension - pt is hemodynamically stable -Continue Norvasc 10mg PO daily -Lisinopril 10mg PO daily, Coreg 6.25mg PO BID -continue to monitor Diabetes Mellitus, Type 2 -Low dose insulin scale ACHS -Accuchecks ACHS -Last HgA1c 6.2% -Hypoglycemia protocol BPH -Continue Flomax 0.4mg PO daily -Continue Proscar 5mg PO daily History of Parkinson's Disease -Continue Carbidopa/Levodopa 1 tab PO TID GI/DVT ppx: -Protonix 40mg IVP daily -Lovenox 40mg SC daily Case was discussed and reviewed with Dr. Lopez All medical management as per Dr. Jessica Batista PGY-1
[2018-08-07] MEDS ORDERED: Iodixanol 320 MG/ML 100 ML BOTTLE IV ONE (10:27)
[2018-08-07] MEDS ORDERED: Heparin 0 ML IV ONE (10:27)
[2018-08-07] MEDS ORDERED: Iodixanol 320 MG/ML 200 ML BOTTLE IV ONE (10:27)
[2018-08-07] MEDS ORDERED: Lidocaine PF 2% (5 ml) Inj (For Cardiac Arrhy) ONE ×3 (10:33→15:06)
[2018-08-07] MEDS ORDERED: Verapamil 2 ML ONE (10:44)
[2018-08-07] MEDS ORDERED: Nitroglycerin 50mg in D5W 50 MG/250 ML BOTTLE IV ONE (10:45)
[2018-08-07] MEDS ORDERED: Lidocaine 1% 20 MG/2 ML PF AMP ONE ×2 (10:46→15:06)
[2018-08-07] MEDS ORDERED: Midazolam 2 MG/2 ML VIAL ONE (10:55)
--- NOTE | 2018-08-07 11:45 | CP.PCM.PN ---
Subjective - Date & Time of Evaluation Date of Evaluation: 08/07/18 Time of Evaluation: 11:44 - Subjective Subjective: Patient s/p cath Normal Coronaries EF 20-25% EDP 12 Non ischemic CMP Medical management Objective - Vital Signs/Intake and Output Vital Signs (last 24 hours): Temp Pulse Resp BP Pulse Ox 98.0 F 60 20 162/71 H 96 08/07/18 09:47 08/07/18 09:47 08/07/18 09:47 08/07/18 09:59 08/07/18 09:47 - Medications Medications: Current Medications Amiodarone HCl (Cordarone) 200 mg PO DAILY [facility] Last Admin: 08/07/18 09:59 Dose: 200 mg Amlodipine Besylate (Norvasc) 10 mg PO DAILY [facility] Last Admin: 08/07/18 09:59 Dose: 10 mg Aspirin (Ecotrin) 81 mg PO DAILY [facility] Last Admin: 08/06/18 09:40 Dose: 81 mg Carbidopa/Levodopa (Sinemet 10/100) 1 tab PO TID [facility] Last Admin: 08/06/18 17:36 Dose: 1 tab Carvedilol (Coreg) 6.25 mg PO BID [facility] Last Admin: 08/07/18 09:59 Dose: 6.25 mg Dextrose (Dextrose 50% Inj) 0 ml IV STAT PRN; Protocol PRN Reason: Hypoglycemia Protocol Dextrose (Glutose 15) 0 gm PO ONCE PRN; Protocol PRN Reason: Hypoglycemia Protocol Docusate Sodium (Colace) 100 mg PO TID [facility] Last Admin: 08/06/18 17:36 Dose: 100 mg Enoxaparin Sodium (Lovenox) 40 mg SC DAILY [facility] Last Admin: 08/06/18 09:41 Dose: 40 mg Finasteride (Proscar) 5 mg PO DAILY [facility] Last Admin: 08/06/18 09:40 Dose: 5 mg Furosemide (Lasix) 20 mg IVP DAILY [facility] Last Admin: 08/07/18 09:59 Dose: 20 mg Glucagon (Glucagen Diagnostic Kit) 0 mg IM STAT PRN; Protocol PRN Reason: Hypoglycemia Protocol Insulin Human Regular (Novolin R) 0 unit SC [facility]; Protocol Last Admin: 08/07/18 07:57 Dose: Not Given Lisinopril (Zestril) 10 mg PO DAILY [facility] Last Admin: 08/07/18 09:59 Dose: 10 mg Pantoprazole Sodium (Protonix Inj) 40 mg IVP DAILY [facility] Last Admin: 08/06/18 09:45 Dose: 40 mg Rosuvastatin Calcium (Crestor) 2.5 mg PO HS [facility] Last Admin: 08/06/18 21:26 Dose: Not Given Tamsulosin HCl (Flomax) 0.4 mg PO DAILY [facility] Last Admin: 08/06/18 09:40 Dose: 0.4 mg - Labs Labs: 08/06/18 11:38 08/06/18 11:38
[2018-08-07] MEDS: Enoxaparin 40 mg Syringe SC SCH (11:47)
[2018-08-07] MEDS: Rosuvastatin Calcium 2.5 mg Tab PO SCH (21:52)
[2018-08-07 23:30] LABS: BASO % 0.3 % (0.0-2.0); EOS # 0.1 K/uL (0.0-0.7); EOS % 1.1 % (0.0-4.0); HEMOGLOBIN 11.6 g/dL (12.0-18.0); LYMPH # 1.3 K/uL (1.0-4.3); LYMPH % 21.4 % (20.0-40.0); MEAN CELL VOLUME 81.5 fL (80.0-94.0); MEAN CORPUSCULAR HEMOGLOBIN 27.2 pg (27.0-31.0); MEAN CORPUSCULAR HGB CONC 33.3 g/dL (33.0-37.0); MEAN PLATELET VOLUME 8.5 fL (7.2-11.7); MONO # 0.7 K/uL (0.0-0.8); MONO % 12.1 % (0.0-10.0); NEUT % 65.1 % (50.0-75.0); RBC 4.29 Mil/uL (4.40-5.90); RED CELL DISTRIBUTION WIDTH 14.6 % (11.5-14.5); WHITE BLOOD COUNT 6.1 K/uL (4.8-10.8)
[2018-08-07 23:35] LABS: INR 1.1
[2018-08-07 23:49] LABS: CALCIUM 8.8 mg/dl (8.6-10.4)
[2018-08-07 23:59] LABS: ALBUMIN 3.4 g/dL (3.5-5.0)
[2018-08-08] MEDS: (Novolin R) Insulin Human Regular 100 units/ml vial SC SCH ×4 (08:15→22:04)
--- NOTE | 2018-08-08 09:04 | CP.PCM.CON ---
<Asher Frey - Last Filed: 08/08/18 09:04> Past Patient History - Infectious Disease Hx of Infectious Diseases: None - Past Medical History & Family History Past Medical History?: Yes - Past Social History Smoking Status: Never Smoked - CARDIAC Hx Congestive Heart Failure: Yes Hx Hypercholesterolemia: Yes Hx Hypertension: Yes - PULMONARY Hx Asthma: Yes - NEUROLOGICAL Hx Alzheimer's Disease: Yes Hx Dementia: Yes Hx Parkinson's Disease: Yes Hx Seizures: No - HEENT Hx HEENT Problems: No - RENAL Hx Chronic Kidney Disease: Yes - ENDOCRINE/METABOLIC Hx Diabetes Mellitus Type 2: Yes - HEMATOLOGICAL/ONCOLOGICAL Hx Human Immunodeficiency Virus (HIV): No - INTEGUMENTARY Hx Dermatological Problems: No - MUSCULOSKELETAL/RHEUMATOLOGICAL Hx Arthritis: Yes - GASTROINTESTINAL Hx Gastrointestinal Disorders: No - GENITOURINARY/GYNECOLOGICAL Hx Sexually Transmitted Disorders: No - PSYCHIATRIC Hx Substance Use: No - SURGICAL HISTORY Hx Coronary Stent: Yes - ANESTHESIA Hx Anesthesia: Yes Hx Anesthesia Reactions: No Meds Allergies/Adverse Reactions: Allergies Allergy/AdvReac Type Severity Reaction Status Date / Time No Known Allergies Allergy Verified 06/10/18 20:07 - Medications Medications: Current Medications Amiodarone HCl (Cordarone) 200 mg PO DAILY [facility] Last Admin: 08/07/18 09:59 Dose: 200 mg Amlodipine Besylate (Norvasc) 10 mg PO DAILY [facility] Last Admin: 08/07/18 09:59 Dose: 10 mg Aspirin (Ecotrin) 81 mg PO DAILY [facility] Last Admin: 08/07/18 11:47 Dose: Not Given Carbidopa/Levodopa (Sinemet 10/100) 1 tab PO TID [facility] Last Admin: 08/07/18 18:29 Dose: 1 tab Carvedilol (Coreg) 6.25 mg PO BID [facility] Last Admin: 08/07/18 18:30 Dose: 6.25 mg Dextrose (Dextrose 50% Inj) 0 ml IV STAT PRN; Protocol PRN Reason: Hypoglycemia Protocol Dextrose (Glutose 15) 0 gm PO ONCE PRN; Protocol PRN Reason: Hypoglycemia Protocol Docusate Sodium (Colace) 100 mg PO TID [facility] Last Admin: 08/07/18 18:30 Dose: 100 mg Enoxaparin Sodium (Lovenox) 40 mg SC DAILY [facility] Last Admin: 08/07/18 11:47 Dose: Not Given Finasteride (Proscar) 5 mg PO DAILY [facility] Last Admin: 08/07/18 11:47 Dose: Not Given Furosemide (Lasix) 20 mg IVP DAILY [facility] Last Admin: 08/07/18 09:59 Dose: 20 mg Glucagon (Glucagen Diagnostic Kit) 0 mg IM STAT PRN; Protocol PRN Reason: Hypoglycemia Protocol Insulin Human Regular (Novolin R) 0 unit SC ACHS [facility]; Protocol Last Admin: 08/08/18 08:15 Dose: 3 units Lisinopril (Zestril) 10 mg PO DAILY [facility] Last Admin: 08/07/18 09:59 Dose: 10 mg Pantoprazole Sodium (Protonix Ec Tab) 40 mg PO DAILY [facility] Rosuvastatin Calcium (Crestor) 2.5 mg PO HS [facility] Last Admin: 08/07/18 21:52 Dose: 2.5 mg Tamsulosin HCl (Flomax) 0.4 mg PO DAILY [facility] Last Admin: 08/07/18 11:47 Dose: Not Given Results - Vital Signs Recent Vital Signs: Last Vital Signs Temp 98.0 F 08/08/18 07:00 Pulse 60 08/08/18 07:00 Resp 20 08/08/18 07:00 BP 160/61 H 08/08/18 07:00 Pulse Ox 97 08/08/18 07:00 - Labs Result Diagrams: 08/07/18 23:25 08/07/18 23:25 Labs: Laboratory Results - last 24 hr 08/07/18 08/07/18 08/07/18 06:28 12:21 17:10 WBC RBC Hgb Hct MCV MCH MCHC RDW Plt Count MPV Neut % (Auto) Lymph % (Auto) [place] % (Auto) Eos % (Auto) Baso % (Auto) Neut # (Auto) Lymph # (Auto) [place] # (Auto) Eos # (Auto) Baso # (Auto) PT INR Sodium Potassium Chloride Carbon Dioxide Anion Gap BUN Creatinine Est GFR ( Amer) Est GFR (Non-Af Amer) POC Glucose (mg/dL) 176 H 222 H 250 H Random Glucose Calcium Phosphorus Magnesium Total Bilirubin AST ALT Alkaline Phosphatase Total Protein Albumin Globulin Albumin/Globulin Ratio 08/07/18 08/07/18 08/07/18 23:25 23:25 23:25 WBC 6.1 RBC 4.29 L Hgb 11.6 L Hct 34.9 L MCV 81.5 MCH 27.2 MCHC 33.3 RDW 14.6 H Plt Count 412 H MPV 8.5 Neut % (Auto) 65.1 Lymph % (Auto) 21.4 [place] % (Auto) 12.1 H Eos % (Auto) 1.1 Baso % (Auto) 0.3 Neut # (Auto) 4.0 Lymph # (Auto) 1.3 [place] # (Auto) 0.7 Eos # (Auto) 0.1 Baso # (Auto) 0.0 PT 12.0 INR 1.1 Sodium 136 Potassium 4.6 Chloride 95 L Carbon Dioxide 30 Anion Gap 15 BUN 29 H Creatinine 1.4 Est GFR ( Amer) 58 Est GFR (Non-Af Amer) 48 POC Glucose (mg/dL) Random Glucose 230 H Calcium 8.8 Phosphorus 3.6 Magnesium 2.0 Total Bilirubin 0.8 AST 36 ALT 38 Alkaline Phosphatase 84 Total Protein 6.8 Albumin 3.4 L Globulin 3.3 Albumin/Globulin Ratio 1.0 08/08/18 06:02 WBC RBC Hgb Hct MCV MCH MCHC RDW Plt Count MPV Neut % (Auto) Lymph % (Auto) [place] % (Auto) Eos % (Auto) Baso % (Auto) Neut # (Auto) Lymph # (Auto) [place] # (Auto) Eos # (Auto) Baso # (Auto) PT INR Sodium Potassium Chloride Carbon Dioxide Anion Gap BUN Creatinine Est GFR ( Amer) Est GFR (Non-Af Amer) POC Glucose (mg/dL) 248 H Random Glucose Calcium Phosphorus Magnesium Total Bilirubin AST ALT Alkaline Phosphatase Total Protein Albumin Globulin Albumin/Globulin Ratio <Katherine Kevin - Last Filed: 08/08/18 10:54> History of Present Illness - History of Present Illness History of Present Illness: Podiatry - Dr. Frey 83 year old male patient PMHx Alzheimer's Disease, Parkinson's disease, HTN, DM, CAD status post stent, Systolic CHF, BPH, DM, hypercholesterolemia seen and evaluated this AM for right ankle wound. Patient is a poor historian, unable to obtain complete HPI 2/2 patient's mental status. Unknown to patient how long he has had wound or how it developed. Patient reports mild pain on palpation around wound. Denies n/v/f/d/sob/mi/cp. Review of Systems - Review of Systems All systems: reviewed and no additional remarkable complaints except (as per HPI) Meds - Medications Medications: Current Medications Amiodarone HCl (Cordarone) 200 mg PO DAILY [facility] Last Admin: 08/07/18 09:59 Dose: 200 mg Amlodipine Besylate (Norvasc) 10 mg PO DAILY [facility] Last Admin: 08/07/18 09:59 Dose: 10 mg Aspirin (Ecotrin) 81 mg PO DAILY [facility] Last Admin: 08/07/18 11:47 Dose: Not Given Carbidopa/Levodopa (Sinemet 10/100) 1 tab PO TID [facility] Last Admin: 08/07/18 18:29 Dose: 1 tab Carvedilol (Coreg) 6.25 mg PO BID [facility] Last Admin: 08/07/18 18:30 Dose: 6.25 mg Dextrose (Dextrose 50% Inj) 0 ml IV STAT PRN; Protocol PRN Reason: Hypoglycemia Protocol Dextrose (Glutose 15) 0 gm PO ONCE PRN; Protocol PRN Reason: Hypoglycemia Protocol Docusate Sodium (Colace) 100 mg PO TID [facility] Last Admin: 08/07/18 18:30 Dose: 100 mg Enoxaparin Sodium (Lovenox) 40 mg SC DAILY [facility] Last Admin: 08/07/18 11:47 Dose: Not Given Finasteride (Proscar) 5 mg PO DAILY [facility] Last Admin: 08/07/18 11:47 Dose: Not Given Furosemide (Lasix) 20 mg IVP DAILY [facility] Last Admin: 08/07/18 09:59 Dose: 20 mg Glucagon (Glucagen Diagnostic Kit) 0 mg IM STAT PRN; Protocol PRN Reason: Hypoglycemia Protocol Insulin Human Regular (Novolin R) 0 unit SC [facility]; Protocol Last Admin: 08/08/18 08:15 Dose: 3 units Lisinopril (Zestril) 10 mg PO DAILY [facility] Last Admin: 08/07/18 09:59 Dose: 10 mg Pantoprazole Sodium (Protonix Ec Tab) 40 mg PO DAILY [facility] Rosuvastatin Calcium (Crestor) 2.5 mg PO HS [facility] Last Admin: 08/07/18 21:52 Dose: 2.5 mg Tamsulosin HCl (Flomax) 0.4 mg PO DAILY [facility] Last Admin: 08/07/18 11:47 Dose: Not Given Physical Exam - Constitutional Appears: Non-toxic, No Acute Distress - Extremities Exam Additional comments: RLE focused physical exam: VASC: DP and PT pulses nonpalpable. CFT <3 seconds x10. Temperature gradient cool to cool. Periwound edema present. NEURO: Gross sensation intact. DERM: Ulceration measuring approximately 3 x 3 x 0.1 cm noted to lateral malleol us - wound base is 75% granular and 25% fibrotic; no drainage noted; no purulence noted; no undermining; no tunneling; no probe to bone; minimal periwound erythema. ORTHO: Pain on palpation periwound and areas of edema. - Psychiatric Exam Psychiatric exam: Normal Affect Results - Vital Signs Recent Vital Signs: Last Vital Signs Temp 98.0 F 08/08/18 07:00 Pulse 60 08/08/18 07:00 Resp 20 08/08/18 07:00 BP 160/61 H 08/08/18 07:00 Pulse Ox 97 08/08/18 07:00 - Labs Result Diagrams: 08/07/18 23:25 08/07/18 23:25 Labs: Laboratory Results - last 24 hr 08/07/18 08/07/18 08/07/18 06:28 12:21 17:10 WBC RBC Hgb Hct MCV MCH MCHC RDW Plt Count MPV Neut % (Auto) Lymph % (Auto) [place] % (Auto) Eos % (Auto) Baso % (Auto) Neut # (Auto) Lymph # (Auto) [place] # (Auto) Eos # (Auto) Baso # (Auto) PT INR Sodium Potassium Chloride Carbon Dioxide Anion Gap BUN Creatinine Est GFR ( Amer) Est GFR (Non-Af Amer) POC Glucose (mg/dL) 176 H 222 H 250 H Random Glucose Calcium Phosphorus Magnesium Total Bilirubin AST ALT Alkaline Phosphatase Total Protein Albumin Globulin Albumin/Globulin Ratio 08/07/18 08/07/18 08/07/18 23:25 23:25 23:25 WBC 6.1 RBC 4.29 L Hgb 11.6 L Hct 34.9 L MCV 81.5 MCH 27.2 MCHC 33.3 RDW 14.6 H Plt Count 412 H MPV 8.5 Neut % (Auto) 65.1 Lymph % (Auto) 21.4 [place] % (Auto) 12.1 H Eos % (Auto) 1.1 Baso % (Auto) 0.3 Neut # (Auto) 4.0 Lymph # (Auto) 1.3 [place] # (Auto) 0.7 Eos # (Auto) 0.1 Baso # (Auto) 0.0 PT 12.0 INR 1.1 Sodium 136 Potassium 4.6 Chloride 95 L Carbon Dioxide 30 Anion Gap 15 BUN 29 H Creatinine 1.4 Est GFR ( Amer) 58 Est GFR (Non-Af Amer) 48 POC Glucose (mg/dL) Random Glucose 230 H Calcium 8.8 Phosphorus 3.6 Magnesium 2.0 Total Bilirubin 0.8 AST 36 ALT 38 Alkaline Phosphatase 84 Total Protein 6.8 Albumin 3.4 L Globulin 3.3 Albumin/Globulin Ratio 1.0 08/08/18 06:02 WBC RBC Hgb Hct MCV MCH MCHC RDW Plt Count MPV Neut % (Auto) Lymph % (Auto) [place] % (Auto) Eos % (Auto) Baso % (Auto) Neut # (Auto) Lymph # (Auto) [place] # (Auto) Eos # (Auto) Baso # (Auto) PT INR Sodium Potassium Chloride Carbon Dioxide Anion Gap BUN Creatinine Est GFR ( Amer) Est GFR (Non-Af Amer) POC Glucose (mg/dL) 248 H Random Glucose Calcium Phosphorus Magnesium Total Bilirubin AST ALT Alkaline Phosphatase Total Protein Albumin Globulin Albumin/Globulin Ratio Assessment & Plan - Assessment and Plan (Free Text) Assessment: 83M PMHx Alzheimer's Disease, Parkinson's disease, HTN, DM, CAD status post stent, Systolic CHF, BPH, DM, hypercholesterolemia with right ankle ulceration Plan: Patient seen and evaluated alongside attending Dr. Frey Afebrile Right ankle XR ordered, f/u Bactroban ordered -QD applications Local wound care - Bactroban, Allevyn pad Pain control per primary team Podiatry will continue to follow
[2018-08-08] MEDS: Pantoprazole 40 mg EC Tab PO SCH (11:18)
[2018-08-08] MEDS: Enoxaparin 40 mg Syringe SC SCH (11:30)
[2018-08-08 11:33] LABS: BASO % 0.2 % (0.0-2.0); EOS # 0.1 K/uL (0.0-0.7); EOS % 1.2 % (0.0-4.0); HEMOGLOBIN 11.5 g/dL (12.0-18.0); LYMPH # 1.4 K/uL (1.0-4.3); LYMPH % 15.9 % (20.0-40.0); MEAN CELL VOLUME 79.6 fL (80.0-94.0); MEAN CORPUSCULAR HEMOGLOBIN 27.5 pg (27.0-31.0); MEAN CORPUSCULAR HGB CONC 34.6 g/dL (33.0-37.0); MEAN PLATELET VOLUME 8.3 fL (7.2-11.7); MONO # 0.7 K/uL (0.0-0.8); MONO % 8.3 % (0.0-10.0); NEUT # 6.6 K/uL (1.8-7.0); NEUT % 74.4 % (50.0-75.0); RBC 4.19 Mil/uL (4.40-5.90); RED CELL DISTRIBUTION WIDTH 14.9 % (11.5-14.5); WHITE BLOOD COUNT 8.9 K/uL (4.8-10.8)
--- NOTE | 2018-08-08 11:41 | CP.PCM.PN ---
Subjective - Date & Time of Evaluation Date of Evaluation: 08/08/18 Time of Evaluation: 11:41 - Subjective Subjective: Jasvir Batista PGY-1, Medicine progress note for Dr. Lopez Pt was seen and examined at bedside. Pt is in no acute distress and resting comfortably. Pt becomes continues to be agitated when interviewed, and full ROS remains unobtainable. However, pt denies headache, fever, chills, chest pain, sob, abdominal pain, n/v/d. Pt is a poor historian due to late parkinson's disease and Alzheimer's disease Objective - Vital Signs/Intake and Output Vital Signs (last 24 hours): Temp Pulse Resp BP Pulse Ox 98.0 F 60 20 119/61 97 08/08/18 07:00 08/08/18 07:00 08/08/18 07:00 08/08/18 11:25 08/08/18 07:00 - Medications Medications: Current Medications Amiodarone HCl (Cordarone) 200 mg PO DAILY [facility] Last Admin: 08/08/18 11:18 Dose: 200 mg Amlodipine Besylate (Norvasc) 10 mg PO DAILY [facility] Last Admin: 08/08/18 11:17 Dose: 10 mg Aspirin (Ecotrin) 81 mg PO DAILY [facility] Last Admin: 08/08/18 11:18 Dose: 81 mg Carbidopa/Levodopa (Sinemet 10/100) 1 tab PO TID [facility] Last Admin: 08/08/18 11:17 Dose: 1 tab Carvedilol (Coreg) 6.25 mg PO BID [facility] Last Admin: 08/08/18 11:17 Dose: 6.25 mg Dextrose (Dextrose 50% Inj) 0 ml IV STAT PRN; Protocol PRN Reason: Hypoglycemia Protocol Dextrose (Glutose 15) 0 gm PO ONCE PRN; Protocol PRN Reason: Hypoglycemia Protocol Docusate Sodium (Colace) 100 mg PO TID [facility] Last Admin: 08/08/18 11:18 Dose: 100 mg Enoxaparin Sodium (Lovenox) 40 mg SC DAILY [facility] Last Admin: 08/07/18 11:47 Dose: Not Given Finasteride (Proscar) 5 mg PO DAILY [facility] Last Admin: 08/08/18 11:17 Dose: 5 mg Furosemide (Lasix) 20 mg IVP DAILY [facility] Last Admin: 08/08/18 11:25 Dose: 20 mg Glucagon (Glucagen Diagnostic Kit) 0 mg IM STAT PRN; Protocol PRN Reason: Hypoglycemia Protocol Insulin Human Regular (Novolin R) 0 unit SC ACHS [facility]; Protocol Last Admin: 08/08/18 08:15 Dose: 3 units Lisinopril (Zestril) 10 mg PO DAILY [facility] Last Admin: 08/08/18 11:18 Dose: 10 mg Mupirocin (Bactroban Ointment) 0 gm TOP DAILY [facility] Pantoprazole Sodium (Protonix Ec Tab) 40 mg PO DAILY [facility] Last Admin: 08/08/18 11:18 Dose: 40 mg Rosuvastatin Calcium (Crestor) 2.5 mg PO HS [facility] Last Admin: 08/07/18 21:52 Dose: 2.5 mg Tamsulosin HCl (Flomax) 0.4 mg PO DAILY [facility] Last Admin: 08/08/18 11:18 Dose: 0.4 mg - Labs Labs: 08/07/18 23:25 08/07/18 23:25 PT 12.0 SECONDS (9.7-12.2) 08/07/18 23:25 INR 1.1 08/07/18 23:25 - Constitutional Appears: Non-toxic, No Acute Distress - Head Exam Head Exam: NORMAL INSPECTION, NORMOCEPHALIC - Eye Exam Eye Exam: EOMI, Normal appearance Additional comments: (+) intense eye contact during times of agitation with bulging eyes and eyelid retraction - ENT Exam ENT Exam: Mucous Membranes Moist - Neck Exam Neck Exam: Normal Inspection - Respiratory Exam Respiratory Exam: Decreased Breath Sounds (at the bases bilaterally), Rales (minimal rales at the bases bilaterally). absent: Wheezes, Respiratory Distress - Cardiovascular Exam Cardiovascular Exam: REGULAR RHYTHM, +S1, +S2 - GI/Abdominal Exam GI & Abdominal Exam: Soft, Normal Bowel Sounds. absent: Firm, Guarding, Rigid, Tenderness - Extremities Exam Extremities Exam: Normal Inspection. absent: Calf Tenderness, Joint Swelling, Pedal Edema, Tenderness Additional comments: (+) resting tremor bilaterally upper extremities - Back Exam Back Exam: NORMAL INSPECTION - Neurological Exam Neurological Exam: Awake - Psychiatric Exam Psychiatric exam: Anxious, Flat Affect - Skin Skin Exam: Dry, Normal Color, Warm Additional comments: (+) right lateral malleous ulcer with dressing; c/d/i; no evidence of bleeding Assessment and Plan - Assessment and Plan (Free Text) Assessment: A/P: Patient is a 83 year old male with past medical history of Alzheimer's Disease, Parkinson's disease, HTN, DM, CAD status post stent, Systolic CHF, pacemaker/AICD who presented to the emergency dept via EMS with shortness of breath x 3 days. Plan: Shortness of breath likely due to Acute on Chronic Systolic Congestive Heart Failure -Stable, afebrile -Monitor on telemetry -Patient with pacemaker/AICD -BNP 10,000 on admission -Last echocardiogram 05/2018 showed ED 30-35%, severely dilated LV, moderate to severe MR (see full report) -Continue Lasix 20mg IVP daily -Patient on both lopressor 25mg Q12H and Coreg 6.125mg PO BID, unclear why, will hold lopressor at this time. -Cardiology on consult, Dr Garcia, help appreciated; cardiac catheterization for atrial fibrillation with wide complex tachycarda - pt underwent cardiac catheterization today (08/07) - well tolerated - coronaries are normal, EF is 20-25%, EDP is 12 -Daily weights, strict intake/output -Supplemental O2 as needed Ventricular Tachycardia- resolved -patient transferred to ICU on 08/03 given 2 gm of magnesium, 150 mg IV Amiodarone, placed on BIPAP and shortly afterwards he broke and back in base line rhythm with HR 70s. -patient transferred back to tele on 08/04 -continue Amiodarone 200mg po daily -will need biventricular defibrillator interrogated - prior records reviewed as to what kind of device pt has, but unrevealing - will f/u with family Diabetic right lateral ankle ulcer - podiatry consulted, Dr. Frey, recs appreciated - wound has been evaluated - right ankle x-ray ordered by podiatry, shows no acute fracture, subluxation or dislocation. Limited degenerative joint disease subtalar joint as well as incidentally at the midfoot joint diffusely. Hx of CAD -Continue ASA 81mg PO daily -Continue Amiodarone 200mg PO daily -Cardiology on consult, help appreciated Hx of hypertension - pt is hemodynamically stable -Continue Norvasc 10mg PO daily -Lisinopril 10mg PO daily, Coreg 6.25mg PO BID -continue to monitor Diabetes Mellitus, Type 2 -Low dose insulin scale ACHS -Accuchecks ACHS -Last HgA1c 6.2% -Hypoglycemia protocol BPH -Continue Flomax 0.4mg PO daily -Continue Proscar 5mg PO daily History of Parkinson's Disease -Continue Carbidopa/Levodopa 1 tab PO TID GI/DVT ppx: -Protonix 40mg IVP daily -Lovenox 40mg SC daily Dispo: possible discharge tomorrow to [facility] or [facility] (family has refused request in the past) or home discharge with visiting nurse. Pending CM/SW planning. Case was discussed and reviewed with Dr. Lopez All medical management as per Dr. Jessica Batista PGY-1
[2018-08-08 11:47] LABS: ALBUMIN 3.3 g/dL (3.5-5.0); CALCIUM 8.7 mg/dl (8.6-10.4)
--- NOTE | 2018-08-08 16:35 | RAD ---
Date of service: 08/08/2018 PROCEDURE: Right Ankle Radiographs. HISTORY: right ankle wound COMPARISON: None FINDINGS: BONES: No acute fracture or destructive bony lesion identified. JOINTS: No spondylolisthesis or subluxation appreciable with normal ankle mortise and talar dome appreciated. Limited degenerative cortical sclerosis compatible with degenerative joint disease. One Almazan degenerative joint changes are incidentally captured at the midfoot anatomy. Moderate plantar calcaneal spurring. SOFT TISSUES: Normal. OTHER FINDINGS: None. IMPRESSION: No acute fracture, subluxation or dislocation. Limited degenerative joint disease subtalar joint as well as incidentally at the midfoot joints diffusely.
[2018-08-08] MEDS: Rosuvastatin Calcium 2.5 mg Tab PO SCH (22:04)
--- NOTE | 2018-08-08 23:14 | CP.PCM.PN ---
Subjective - Date & Time of Evaluation Date of Evaluation: 08/08/18 Time of Evaluation: 18:30 - Subjective Subjective: Patient seen and evaluated Not in distress Physical Examination - Additional Findings Additional findings: - Constitutional Appears: In Acute Distress, Chronically Ill - Head Exam Head Exam: ATRAUMATIC, NORMAL INSPECTION - Eye Exam Eye Exam: EOMI, Normal appearance - Respiratory Exam Respiratory Exam: Decreased Breath Sounds, Rales. absent: Clear to Auscultation Bilateral - Cardiovascular Exam Cardiovascular Exam: REGULAR RHYTHM, +S1, +S2, Systolic Murmur - GI/Abdominal Exam GI & Abdominal Exam: Soft. absent: Guarding, Rebound, Rigid, Tenderness - Extremities Exam Extremities exam: Positive for: pedal pulses present. Negative for: calf tenderness - Neurological Exam Neurological exam: Alert - Psychiatric Exam Psychiatric exam: Normal Affect, Normal Mood - Skin Skin Exam: Dry, Normal Color, Warm Assessment and Plan - Assessment and Plan (Free Text) Assessment: A/P: Patient is a 83 year old male with past medical history of Alzheimer's Disease, Parkinson's disease, HTN, DM, CAD status post stent, Systolic CHF, pacemaker/AICD who presented to the emergency dept via EMS with shortness of breath x 3 days. Shortness of breath likely due to Acute on Chronic Systolic Congestive Heart Failure -Stable, afebrile -Monitor on telemetry -Patient with pacemaker/AICD -BNP 10,000 on admission -S/P Lasix 80mg IVP in the emergency dept -Last echocardiogram 05/2018 showed ED 30-35%, severely dilated LV, moderate to severe MR (see full report) -CXR showed pulmonary venous congestion (official read pending) -We will continue Lasix 20mg IVP daily -Patient on both lopressor 25mg Q12H and Coreg 6.125mg PO BID, unclear why, will hold lopressor at this time. -Cardiology on consult, Dr Garcia, help appreciated -Daily weights, strict intake/output -Supplemental O2 Ventricular Tachycardia -patient transferred to ICU on 08/03 given 2 gem of magnesium, 150 mg IV Amiodarone, placed on BIPAP and shortly afterwards he broke and back in base line rhythm with HR 70s. -patient transferred back to tele on 08/04 -will need biventricular defibrillator interrogated CAD -Continue ASA 81mg PO daily -Continue Amiodarone 200mg PO daily -Cardiology on consult, help appreciated Hypertension -Continue Norvasc 10mg PO daily -Lisinopril 10mg PO daily, Coreg 6.25mg PO BID -Monitor vitals Diabetes Mellitus, Type 2 -Low dose insulin scale ACHS -Accuchecks ACHS -Last HgA1c 6.2% -Hypoglycemia protocol BPH -Continue Flomax 0.4mg PO daily -Continue Proscar 5mg PO daily History of Parkinson's Disease -Continue Carbidopa/Levodopa 1 tab PO TID -Continue Seroquel 25mg PO HS GI/DVT ppx: -Protonix 40mg IVP daily -Lovenox 40mg SC daily Assessment and Plan: I melissa CMP with low EF s/p AICD Acute on Chronic systolic CHF A Fib with wide complex tachycardia Due to Az Dementia not a candidate for correction anticoagulation Continue Medical management Stop Lopressor. continue Coreg and Amiadorone Objective - Vital Signs/Intake and Output Vital Signs (last 24 hours): Temp Pulse Resp BP Pulse Ox 98.8 F 62 20 124/61 95 08/08/18 15:00 08/08/18 15:00 08/08/18 15:00 08/08/18 15:00 08/08/18 15:00 Intake and Output: 08/08/18 08/09/18 18:59 06:59 Output Total 550 Balance -550 - Medications Medications: Current Medications Amiodarone HCl (Cordarone) 200 mg PO DAILY [facility] Last Admin: 08/08/18 11:18 Dose: 200 mg Amlodipine Besylate (Norvasc) 10 mg PO DAILY [facility] Last Admin: 08/08/18 11:17 Dose: 10 mg Aspirin (Ecotrin) 81 mg PO DAILY [facility] Last Admin: 08/08/18 11:18 Dose: 81 mg Carbidopa/Levodopa (Sinemet 10/100) 1 tab PO TID [facility] Last Admin: 08/08/18 18:09 Dose: 1 tab Carvedilol (Coreg) 6.25 mg PO BID [facility] Last Admin: 08/08/18 18:08 Dose: 6.25 mg Dextrose (Dextrose 50% Inj) 0 ml IV STAT PRN; Protocol PRN Reason: Hypoglycemia Protocol Dextrose (Glutose 15) 0 gm PO ONCE PRN; Protocol PRN Reason: Hypoglycemia Protocol Docusate Sodium (Colace) 100 mg PO TID [facility] Last Admin: 08/08/18 18:08 Dose: 100 mg Enoxaparin Sodium (Lovenox) 40 mg SC DAILY [facility] Last Admin: 08/08/18 11:30 Dose: 40 mg Finasteride (Proscar) 5 mg PO DAILY [facility] Last Admin: 08/08/18 11:17 Dose: 5 mg Furosemide (Lasix) 20 mg IVP DAILY [facility] Last Admin: 08/08/18 11:25 Dose: 20 mg Glucagon (Glucagen Diagnostic Kit) 0 mg IM STAT PRN; Protocol PRN Reason: Hypoglycemia Protocol Insulin Human Regular (Novolin R) 0 unit SC [facility]; Protocol Last Admin: 08/08/18 22:04 Dose: Not Given Lisinopril (Zestril) 10 mg PO DAILY [facility] Last Admin: 08/08/18 11:18 Dose: 10 mg Mupirocin (Bactroban Ointment) 0 gm TOP DAILY [facility] Last Admin: 08/08/18 15:46 Dose: Not Given Pantoprazole Sodium (Protonix Ec Tab) 40 mg PO DAILY [facility] Last Admin: 08/08/18 11:18 Dose: 40 mg Rosuvastatin Calcium (Crestor) 2.5 mg PO HS [facility] Last Admin: 08/08/18 22:04 Dose: Not Given Tamsulosin HCl (Flomax) 0.4 mg PO DAILY [facility] Last Admin: 08/08/18 11:18 Dose: 0.4 mg - Labs Labs: 08/08/18 11:26 08/08/18 11:26 PT 12.0 SECONDS (9.7-12.2) 08/07/18 23:25 INR 1.1 08/07/18 23:25
[2018-08-09] MEDS: (Novolin R) Insulin Human Regular 100 units/ml vial SC SCH ×4 (08:10→21:44)
[2018-08-09] MEDS: Enoxaparin 40 mg Syringe SC SCH ×2 (10:00→11:11)
[2018-08-09] MEDS: Pantoprazole 40 mg EC Tab PO SCH (10:00)
--- NOTE | 2018-08-09 10:43 | CP.PCM.PN ---
<Katherine Kevin - Last Filed: 08/09/18 11:20> Subjective - Date & Time of Evaluation Date of Evaluation: 08/09/18 Time of Evaluation: 10:23 - Subjective Subjective: Podiatry - Dr. Frey 83M seen and evaluated this AM for right ankle wound. Patient resting comfortably, NAD. Patient is a poor historian. At present, patient reports mild pain around wound. Multipodus boots absent b/l. Offers no new pedal complaints. Reports SOB improving; denies n/v/f/d/abd pain/cp. Objective - Vital Signs/Intake and Output Vital Signs (last 24 hours): Temp Pulse Resp BP Pulse Ox 98.1 F 68 20 177/78 H 96 08/09/18 07:00 08/09/18 07:20 08/09/18 07:00 08/09/18 07:00 08/09/18 07:00 Intake and Output: 08/09/18 08/09/18 06:59 18:59 Output Total 550 Balance -550 - Medications Medications: Current Medications Amiodarone HCl (Cordarone) 200 mg PO DAILY [facility] Last Admin: 08/08/18 11:18 Dose: 200 mg Amlodipine Besylate (Norvasc) 10 mg PO DAILY [facility] Last Admin: 08/08/18 11:17 Dose: 10 mg Aspirin (Ecotrin) 81 mg PO DAILY [facility] Last Admin: 08/08/18 11:18 Dose: 81 mg Carbidopa/Levodopa (Sinemet 10/100) 1 tab PO TID [facility] Last Admin: 08/08/18 18:09 Dose: 1 tab Carvedilol (Coreg) 6.25 mg PO BID [facility] Last Admin: 08/08/18 18:08 Dose: 6.25 mg Dextrose (Dextrose 50% Inj) 0 ml IV STAT PRN; Protocol PRN Reason: Hypoglycemia Protocol Dextrose (Glutose 15) 0 gm PO ONCE PRN; Protocol PRN Reason: Hypoglycemia Protocol Docusate Sodium (Colace) 100 mg PO TID [facility] Last Admin: 08/08/18 18:08 Dose: 100 mg Enoxaparin Sodium (Lovenox) 40 mg SC DAILY [facility] Last Admin: 08/08/18 11:30 Dose: 40 mg Finasteride (Proscar) 5 mg PO DAILY [facility] Last Admin: 10/02/18 11:17 Dose: 5 mg Furosemide (Lasix) 20 mg IVP DAILY [facility] Last Admin: 08/08/18 11:25 Dose: 20 mg Glucagon (Glucagen Diagnostic Kit) 0 mg IM STAT PRN; Protocol PRN Reason: Hypoglycemia Protocol Insulin Human Regular (Novolin R) 0 unit SC ACHS [facility]; Protocol Last Admin: 08/09/18 08:10 Dose: 1 units Lisinopril (Zestril) 10 mg PO DAILY [facility] Last Admin: 08/08/18 11:18 Dose: 10 mg Mupirocin (Bactroban Ointment) 0 gm TOP DAILY [facility] Last Admin: 08/08/18 15:46 Dose: Not Given Pantoprazole Sodium (Protonix Ec Tab) 40 mg PO DAILY [facility] Last Admin: 08/08/18 11:18 Dose: 40 mg Rosuvastatin Calcium (Crestor) 2.5 mg PO HS [facility] Last Admin: 08/08/18 22:04 Dose: Not Given Tamsulosin HCl (Flomax) 0.4 mg PO DAILY [facility] Last Admin: 08/08/18 11:18 Dose: 0.4 mg - Labs Labs: 08/08/18 11:26 08/08/18 11:26 PT 12.0 SECONDS (9.7-12.2) 08/07/18 23:25 INR 1.1 08/07/18 23:25 - Constitutional Appears: Well, Non-toxic, No Acute Distress - Extremities Exam Additional comments: RLE focused physical exam: VASC: DP and PT pulses nonpalpable. CFT <3 seconds x5. Temperature gradient cool to cool. No edema. NEURO: Gross sensation intact. DERM: Ulceration measuring approximately 3 x 3 x 0.1 cm noted to lateral malleolus - wound base is 75% granular and 25% fibrotic; no drainage noted; no purulence noted; no malodor; no undermining; no tunneling; no probe to bone; minimal periwound erythema; no hyperkeratosis. ORTHO: Pain on palpation periwound. - Neurological Exam Neurological Exam: Awake Assessment and Plan - Assessment and Plan (Free Text) Assessment: 83M PMHx Alzheimer's Disease, Parkinson's disease, HTN, DM, CAD status post stent, Systolic CHF, BPH, DM, hypercholesterolemia with right lateral malleolus ulceration Plan: Patient seen and evaluated alongside attending Dr. Shante Joshi Right ankle XR reviewed: unremarkable Continue local wound care QD - Bactroban, Optifoam Continue offloading boots at all times in bed Pain control per primary team Podiatry will continue to follow <Asher Frey - Last Filed: 08/09/18 17:59> Objective - Vital Signs/Intake and Output Vital Signs (last 24 hours): Temp Pulse Resp BP Pulse Ox 98.1 F 66 18 118/58 L 98 08/09/18 15:00 08/09/18 15:00 08/09/18 15:00 08/09/18 15:00 08/09/18 15:00 Intake and Output: 08/09/18 08/09/18 06:59 18:59 Output Total 550 Balance -550 - Medications Medications: Current Medications Amiodarone HCl (Cordarone) 200 mg PO DAILY [facility] Last Admin: 08/09/18 11:11 Dose: 200 mg Amlodipine Besylate (Norvasc) 10 mg PO DAILY [facility] Last Admin: 08/09/18 11:11 Dose: 10 mg Aspirin (Ecotrin) 81 mg PO DAILY [facility] Last Admin: 08/09/18 10:30 Dose: 81 mg Betamethasone/Clotrimazole (Lotrisone) 0 gm TOP BID [facility] Last Admin: 08/09/18 17:53 Dose: 1 oin Carbidopa/Levodopa (Sinemet 10/100) 1 tab PO TID [facility] Last Admin: 08/09/18 17:52 Dose: 1 tab Carvedilol (Coreg) 6.25 mg PO BID [facility] Last Admin: 08/09/18 17:52 Dose: 6.25 mg Dextrose (Dextrose 50% Inj) 0 ml IV STAT PRN; Protocol PRN Reason: Hypoglycemia Protocol Dextrose (Glutose 15) 0 gm PO ONCE PRN; Protocol PRN Reason: Hypoglycemia Protocol Docusate Sodium (Colace) 100 mg PO TID [facility] Last Admin: 08/09/18 17:55 Dose: 100 mg Enoxaparin Sodium (Lovenox) 40 mg SC DAILY [facility] Last Admin: 08/09/18 10:00 Dose: Not Given Finasteride (Proscar) 5 mg PO DAILY [facility] Last Admin: 08/09/18 11:11 Dose: 5 mg Furosemide (Lasix) 20 mg IVP DAILY [facility] Last Admin: 08/09/18 11:12 Dose: 20 mg Glucagon (Glucagen Diagnostic Kit) 0 mg IM STAT PRN; Protocol PRN Reason: Hypoglycemia Protocol Insulin Human Regular (Novolin R) 0 unit SC ACHS [facility]; Protocol Last Admin: 08/09/18 12:53 Dose: 3 units Lisinopril (Zestril) 10 mg PO DAILY [facility] Last Admin: 08/09/18 11:11 Dose: 10 mg Mupirocin (Bactroban Ointment) 0 gm TOP DAILY [facility] Last Admin: 08/09/18 13:09 Dose: 2 % Pantoprazole Sodium (Protonix Ec Tab) 40 mg PO DAILY [facility] Last Admin: 08/09/18 10:00 Dose: 40 mg Rosuvastatin Calcium (Crestor) 2.5 mg PO HS [facility] Last Admin: 08/08/18 22:04 Dose: Not Given Tamsulosin HCl (Flomax) 0.4 mg PO DAILY [facility] Last Admin: 08/09/18 11:11 Dose: 0.4 mg - Labs Labs: 08/09/18 16:40 08/09/18 16:40 PT 12.0 SECONDS (9.7-12.2) 08/07/18 23:25 INR 1.1 08/07/18 23:25 Assessment and Plan - Assessment and Plan (Free Text) Plan: pt seen at bedside with resident . agree with above findings . continue local wound care . heel /foot off/load in place .will follow /Dr Frey
[2018-08-09] MEDS: Clotrimazole/Betamethasone Cream(15 gm) TOP SCH ×2 (13:11→17:53)
--- NOTE | 2018-08-09 15:37 | CP.PCM.PN ---
Subjective - Date & Time of Evaluation Date of Evaluation: 08/09/18 Time of Evaluation: 15:35 - Subjective Subjective: Jasvir Batista PGY-1, Medicine progress note for Dr. Lopez Pt was seen and examined at bedside. Pt is in no acute distress and resting comfortably. Pt is a poor historian due to late parkinson's disease and Alzheimer's disease and a full ROS remains unobtainable. However, pt denies headache, fever, chills, chest pain, sob, abdominal pain, n/v/d. . Nurse reports new areas of erythema to the bilateral axillas, inguinal folds. Pt is refusing labwork today, and is combative at times. Objective - Vital Signs/Intake and Output Vital Signs (last 24 hours): Temp Pulse Resp BP Pulse Ox 98.1 F 68 20 128/62 96 08/09/18 07:00 08/09/18 07:20 08/09/18 07:00 08/09/18 11:12 08/09/18 07:00 Intake and Output: 08/09/18 08/09/18 06:59 18:59 Output Total 550 Balance -550 - Medications Medications: Current Medications Amiodarone HCl (Cordarone) 200 mg PO DAILY [facility] Last Admin: 08/09/18 11:11 Dose: 200 mg Amlodipine Besylate (Norvasc) 10 mg PO DAILY [facility] Last Admin: 08/09/18 11:11 Dose: 10 mg Aspirin (Ecotrin) 81 mg PO DAILY [facility] Last Admin: 08/09/18 10:30 Dose: 81 mg Betamethasone/Clotrimazole (Lotrisone) 0 gm TOP BID [facility] Last Admin: 08/09/18 13:11 Dose: 1 oin Carbidopa/Levodopa (Sinemet 10/100) 1 tab PO TID [facility] Last Admin: 08/09/18 11:11 Dose: 1 tab Carvedilol (Coreg) 6.25 mg PO BID [facility] Last Admin: 08/09/18 11:11 Dose: 6.25 mg Dextrose (Dextrose 50% Inj) 0 ml IV STAT PRN; Protocol PRN Reason: Hypoglycemia Protocol Dextrose (Glutose 15) 0 gm PO ONCE PRN; Protocol PRN Reason: Hypoglycemia Protocol Docusate Sodium (Colace) 100 mg PO TID [facility] Last Admin: 08/09/18 11:12 Dose: 100 mg Enoxaparin Sodium (Lovenox) 40 mg SC DAILY [facility] Last Admin: 08/09/18 11:11 Dose: 40 mg Finasteride (Proscar) 5 mg PO DAILY [facility] Last Admin: 08/09/18 11:11 Dose: 5 mg Furosemide (Lasix) 20 mg IVP DAILY [facility] Last Admin: 08/09/18 11:12 Dose: 20 mg Glucagon (Glucagen Diagnostic Kit) 0 mg IM STAT PRN; Protocol PRN Reason: Hypoglycemia Protocol Insulin Human Regular (Novolin R) 0 unit SC [facility]; Protocol Last Admin: 08/09/18 12:53 Dose: 3 units Lisinopril (Zestril) 10 mg PO DAILY [facility] Last Admin: 08/09/18 11:11 Dose: 10 mg Mupirocin (Bactroban Ointment) 0 gm TOP DAILY [facility] Last Admin: 08/09/18 13:09 Dose: 2 % Pantoprazole Sodium (Protonix Ec Tab) 40 mg PO DAILY [facility] Last Admin: 08/09/18 10:00 Dose: 40 mg Rosuvastatin Calcium (Crestor) 2.5 mg PO HS [facility] Last Admin: 08/08/18 22:04 Dose: Not Given Tamsulosin HCl (Flomax) 0.4 mg PO DAILY [facility] Last Admin: 08/09/18 11:11 Dose: 0.4 mg - Labs Labs: 08/08/18 11:26 08/08/18 11:26 PT 12.0 SECONDS (9.7-12.2) 08/07/18 23:25 INR 1.1 08/07/18 23:25 - Constitutional Appears: Non-toxic, No Acute Distress - Head Exam Head Exam: NORMAL INSPECTION, NORMOCEPHALIC - Eye Exam Eye Exam: EOMI, Normal appearance Additional comments: (+) intense eye contact during times of agitation with bulging eyes and eyelid r etraction - ENT Exam ENT Exam: Mucous Membranes Moist - Respiratory Exam Respiratory Exam: absent: Rhonchi, Wheezes Additional comments: limited examination as pt is uncooperative - Cardiovascular Exam Cardiovascular Exam: REGULAR RHYTHM, +S1, +S2 - GI/Abdominal Exam GI & Abdominal Exam: Soft, Normal Bowel Sounds. absent: Distended, Firm, Guarding, Tenderness - Extremities Exam Extremities Exam: Normal Inspection. absent: Calf Tenderness, Pedal Edema Additional comments: (+) bilateral upper extremity resting tremors - Back Exam Back Exam: NORMAL INSPECTION - Neurological Exam Neurological Exam: Alert, Awake - Psychiatric Exam Psychiatric exam: Normal Mood - Skin Skin Exam: Dry, Intact, Warm Additional comments: (+) right lateral malleous ulcer with dressing; c/d/i; no evidence of bleeding (+) blanching areas of erythema to the bilateral axillas and bilateral inguinal folds; nontender, no abrasions; (+) warm to touch Assessment and Plan - Assessment and Plan (Free Text) Assessment: A/P: Patient is a 83 year old male with past medical history of Alzheimer's Disease, Parkinson's disease, HTN, DM, CAD status post stent, Systolic CHF, pacemaker/AICD who presented to the emergency dept via EMS with shortness of breath x 3 days. Plan: Shortness of breath likely due to Acute on Chronic Systolic Congestive Heart Failure -Stable, afebrile -Monitor on telemetry -Patient with pacemaker/AICD -BNP 10,000 on admission -Last echocardiogram 05/2018 showed ED 30-35%, severely dilated LV, moderate to severe MR (see full report) -Continue Lasix 20mg IVP daily -Patient on both lopressor 25mg Q12H and Coreg 6.125mg PO BID, unclear why, will hold lopressor at this time. -Cardiology on consult, Dr Garcia, help appreciated; cardiac catheterization for atrial fibrillation with wide complex tachycarda - pt underwent cardiac catheterization today (08/07) - well tolerated - coronaries are normal, EF is 20-25%, EDP is 12 -Daily weights, strict intake/output -Supplemental O2 as needed Ventricular Tachycardia- resolved -patient transferred to ICU on 08/03 given 2 gm of magnesium, 150 mg IV Amiodarone, placed on BIPAP and shortly afterwards he broke and back in base line rhythm with HR 70s. -patient transferred back to tele on 08/04 -continue Amiodarone 200mg po daily -will need biventricular defibrillator interrogated - prior records reviewed as to what kind of device pt has, but unrevealing - will f/u with family Erythematous rash; likely candidiasis (08/09) - pt remains afebrile - will treat with lortisone cream BID to affected areas - will monitor Diabetic right lateral ankle ulcer - podiatry consulted, aria Olivares appreciated - wound management as per Podiatry - Bactroban, Optifoam - continue offloading boots - right ankle x-ray ordered by podiatry, shows no acute fracture, subluxation or dislocation. Limited degenerative joint disease subtalar joint as well as incidentally at the midfoot joint diffusely. Hx of CAD -Continue ASA 81mg PO daily -Continue Amiodarone 200mg PO daily -Cardiology on consult, help appreciated Hx of hypertension - pt is hemodynamically stable -Continue Norvasc 10mg PO daily -Lisinopril 10mg PO daily, Coreg 6.25mg PO BID -continue to monitor Diabetes Mellitus, Type 2 -Low dose insulin scale ACHS -Accuchecks ACHS -Last HgA1c 6.2% -Hypoglycemia protocol BPH -Continue Flomax 0.4mg PO daily -Continue Proscar 5mg PO daily History of Parkinson's Disease -Continue Carbidopa/Levodopa 1 tab PO TID GI/DVT ppx: -Protonix 40mg IVP daily -Lovenox 40mg SC daily Dispo: possible discharge tomorrow to LTAC or CON (family has refused request in the past due to prior experience with LTAC/CON) or home discharge with visiting nurse. Pending CM/SW planning. Case was discussed and reviewed with Dr. Lopez All medical management as per Dr. Jessica Batista PGY-1
[2018-08-09 16:51] LABS: BASO % 0.5 % (0.0-2.0); EOS # 0.1 K/uL (0.0-0.7); EOS % 1.5 % (0.0-4.0); HEMOGLOBIN 11.3 g/dL (12.0-18.0); LYMPH % 11.7 % (20.0-40.0); MEAN CELL VOLUME 80.4 fL (80.0-94.0); MEAN CORPUSCULAR HEMOGLOBIN 26.9 pg (27.0-31.0); MEAN CORPUSCULAR HGB CONC 33.4 g/dL (33.0-37.0); MONO # 0.7 K/uL (0.0-0.8); MONO % 8.3 % (0.0-10.0); NEUT # 6.4 K/uL (1.8-7.0); NRBC % 0.1 % (0.0-2.0); RBC 4.21 Mil/uL (4.40-5.90); RED CELL DISTRIBUTION WIDTH 14.7 % (11.5-14.5); WHITE BLOOD COUNT 8.2 K/uL (4.8-10.8)
[2018-08-09 17:05] LABS: ALBUMIN 3.3 g/dL (3.5-5.0); CALCIUM 8.8 mg/dl (8.6-10.4)
[2018-08-09] MEDS: Rosuvastatin Calcium 2.5 mg Tab PO SCH (21:27)
--- NOTE | 2018-08-09 22:33 | CP.PCM.PN ---
Subjective - Date & Time of Evaluation Date of Evaluation: 08/09/18 Time of Evaluation: 11:30 - Subjective Subjective: Patient seen and evaluated Not in distress Physical Examination - Additional Findings Additional findings: - Constitutional Appears: In Acute Distress, Chronically Ill - Head Exam Head Exam: ATRAUMATIC, NORMAL INSPECTION - Eye Exam Eye Exam: EOMI, Normal appearance - Respiratory Exam Respiratory Exam: Decreased Breath Sounds, Rales. absent: Clear to Auscultation Bilateral - Cardiovascular Exam Cardiovascular Exam: REGULAR RHYTHM, +S1, +S2, Systolic Murmur - GI/Abdominal Exam GI & Abdominal Exam: Soft. absent: Guarding, Rebound, Rigid, Tenderness - Extremities Exam Extremities exam: Positive for: pedal pulses present. Negative for: calf tenderness - Neurological Exam Neurological exam: Alert - Psychiatric Exam Psychiatric exam: Normal Affect, Normal Mood - Skin Skin Exam: Dry, Normal Color, Warm Assessment and Plan - Assessment and Plan (Free Text) Assessment: A/P: Patient is a 83 year old male with past medical history of Alzheimer's Disease, Parkinson's disease, HTN, DM, CAD status post stent, Systolic CHF, pacemaker/AICD who presented to the emergency dept via EMS with shortness of breath x 3 days. Shortness of breath likely due to Acute on Chronic Systolic Congestive Heart Failure -Stable, afebrile -Monitor on telemetry -Patient with pacemaker/AICD -BNP 10,000 on admission -S/P Lasix 80mg IVP in the emergency dept -Last echocardiogram 05/2018 showed ED 30-35%, severely dilated LV, moderate to severe MR (see full report) -CXR showed pulmonary venous congestion (official read pending) -We will continue Lasix 20mg IVP daily -Patient on both lopressor 25mg Q12H and Coreg 6.125mg PO BID, unclear why, will hold lopressor at this time. -Cardiology on consult, Dr Garcia, help appreciated -Daily weights, strict intake/output -Supplemental O2 Ventricular Tachycardia -patient transferred to ICU on 08/03 given 2 gem of magnesium, 150 mg IV Amiodarone, placed on BIPAP and shortly afterwards he broke and back in base line rhythm with HR 70s. -patient transferred back to tele on 08/04 -will need biventricular defibrillator interrogated CAD -Continue ASA 81mg PO daily -Continue Amiodarone 200mg PO daily -Cardiology on consult, help appreciated Hypertension -Continue Norvasc 10mg PO daily -Lisinopril 10mg PO daily, Coreg 6.25mg PO BID -Monitor vitals Diabetes Mellitus, Type 2 -Low dose insulin scale ACHS -Accuchecks ACHS -Last HgA1c 6.2% -Hypoglycemia protocol BPH -Continue Flomax 0.4mg PO daily -Continue Proscar 5mg PO daily History of Parkinson's Disease -Continue Carbidopa/Levodopa 1 tab PO TID -Continue Seroquel 25mg PO HS GI/DVT ppx: -Protonix 40mg IVP daily -Lovenox 40mg SC daily Assessment and Plan: I melissa CMP with low EF s/p AICD Acute on Chronic systolic CHF A Fib with wide complex tachycardia Due to [place] Dementia not a candidate for residential anticoagulation Continue Medical management Stop Lopressor. continue Coreg and Amiadorone Objective - Vital Signs/Intake and Output Vital Signs (last 24 hours): Temp Pulse Resp BP Pulse Ox 98.1 F 66 18 118/58 L 98 08/09/18 15:00 08/09/18 15:00 08/09/18 15:00 08/09/18 15:00 08/09/18 15:00 - Medications Medications: Current Medications Amiodarone HCl (Cordarone) 200 mg PO DAILY [facility] Last Admin: 08/09/18 11:11 Dose: 200 mg Amlodipine Besylate (Norvasc) 10 mg PO DAILY [facility] Last Admin: 08/09/18 11:11 Dose: 10 mg Aspirin (Ecotrin) 81 mg PO DAILY [facility] Last Admin: 08/09/18 10:30 Dose: 81 mg Betamethasone/Clotrimazole (Lotrisone) 0 gm TOP BID [facility] Last Admin: 08/09/18 17:53 Dose: 1 oin Carbidopa/Levodopa (Sinemet 10/100) 1 tab PO TID [facility] Last Admin: 08/09/18 17:52 Dose: 1 tab Carvedilol (Coreg) 6.25 mg PO BID [facility] Last Admin: 08/09/18 17:52 Dose: 6.25 mg Dextrose (Dextrose 50% Inj) 0 ml IV STAT PRN; Protocol PRN Reason: Hypoglycemia Protocol Dextrose (Glutose 15) 0 gm PO ONCE PRN; Protocol PRN Reason: Hypoglycemia Protocol Docusate Sodium (Colace) 100 mg PO TID [facility] Last Admin: 08/09/18 17:55 Dose: 100 mg Enoxaparin Sodium (Lovenox) 40 mg SC DAILY [facility] Last Admin: 08/09/18 10:00 Dose: Not Given Finasteride (Proscar) 5 mg PO DAILY [facility] Last Admin: 08/09/18 11:11 Dose: 5 mg Furosemide (Lasix) 20 mg IVP DAILY [facility] Last Admin: 08/09/18 11:12 Dose: 20 mg Glucagon (Glucagen Diagnostic Kit) 0 mg IM STAT PRN; Protocol PRN Reason: Hypoglycemia Protocol Insulin Human Regular (Novolin R) 0 unit [place] [facility]; Protocol Last Admin: 08/09/18 21:44 Dose: Not Given Lisinopril (Zestril) 10 mg PO DAILY [facility] Last Admin: 08/09/18 11:11 Dose: 10 mg Mupirocin (Bactroban Ointment) 0 gm TOP DAILY [facility] Last Admin: 08/09/18 13:09 Dose: 2 % Pantoprazole Sodium (Protonix Ec Tab) 40 mg PO DAILY [facility] Last Admin: 08/09/18 10:00 Dose: 40 mg Rosuvastatin Calcium (Crestor) 2.5 mg PO HS [facility] Last Admin: 08/09/18 21:27 Dose: Not Given Tamsulosin HCl (Flomax) 0.4 mg PO DAILY [facility] Last Admin: 08/09/18 11:11 Dose: 0.4 mg - Labs Labs: 08/09/18 16:40 08/09/18 16:40 PT 12.0 SECONDS (9.7-12.2) 08/07/18 23:25 INR 1.1 08/07/18 23:25
[2018-08-10 01:13] VITALS: RESP 20
[2018-08-10] MEDS: (Novolin R) Insulin Human Regular 100 units/ml vial SC SCH ×4 (08:21→21:46)
[2018-08-10] MEDS: Pantoprazole 40 mg EC Tab PO SCH (10:42)
[2018-08-10 10:48] LABS: BASO % 0.3 % (0.0-2.0); EOS # 0.1 K/uL (0.0-0.7); EOS % 1.4 % (0.0-4.0); HEMOGLOBIN 11.4 g/dL (12.0-18.0); LYMPH # 1.4 K/uL (1.0-4.3); LYMPH % 16.8 % (20.0-40.0); MEAN CELL VOLUME 80.8 fL (80.0-94.0); MEAN CORPUSCULAR HEMOGLOBIN 26.8 pg (27.0-31.0); MEAN CORPUSCULAR HGB CONC 33.2 g/dL (33.0-37.0); MEAN PLATELET VOLUME 7.9 fL (7.2-11.7); MONO # 0.7 K/uL (0.0-0.8); NEUT # 6.1 K/uL (1.8-7.0); NEUT % 73.5 % (50.0-75.0); RBC 4.24 Mil/uL (4.40-5.90); RED CELL DISTRIBUTION WIDTH 14.6 % (11.5-14.5); WHITE BLOOD COUNT 8.4 K/uL (4.8-10.8)
[2018-08-10] MEDS: Clotrimazole/Betamethasone Cream(15 gm) TOP SCH ×2 (10:51→18:54)
[2018-08-10] MEDS: Enoxaparin 30 mg Syringe SC SCH (11:03)
[2018-08-10 11:18] LABS: ALB/GLOB RATIO 1.1 (1.0-2.1); ALBUMIN 3.2 g/dL (3.5-5.0); CALCIUM 8.8 mg/dl (8.6-10.4)
--- NOTE | 2018-08-10 12:30 | CP.PCM.DIS ---
Provider - Provider Date of Admission: 08/02/18 23:46 Attending physician: Eber Lopez Jr, MD Time Spent in preparation of Discharge (in minutes): 35 Hospital Course - Lab Results Lab Results: Micro Results 08/03/18 06:26 Blood-Venous Blood Culture - Final NO GROWTH AFTER 5 DAYS 08/03/18 06:26 Blood-Venous Gram Stain - Final TEST NOT PERFORMED 08/03/18 06:24 Blood-Venous Blood Culture - Final NO GROWTH AFTER 5 DAYS 08/03/18 06:24 Blood-Venous Gram Stain - Final TEST NOT PERFORMED 08/04/18 19:15 Naris MRSA Culture - Final MRSA NOT DETECTED 08/04/18 06:27 Nose MRSA Culture (Admit) - Final MRSA NOT DETECTED Most Recent Lab Values WBC 8.4 K/uL (4.8-10.8) 08/10/18 10:45 RBC 4.24 Mil/uL (4.40-5.90) L 08/10/18 10:45 Hgb 11.4 g/dL (12.0-18.0) L 08/10/18 10:45 Hct 34.3 % (35.0-51.0) L 08/10/18 10:45 MCV 80.8 fL (80.0-94.0) 08/10/18 10:45 MCH 26.8 pg (27.0-31.0) L 08/10/18 10:45 MCHC 33.2 g/dL (33.0-37.0) 08/10/18 10:45 RDW 14.6 % (11.5-14.5) H 08/10/18 10:45 Plt Count 418 K/uL (130-400) H 08/10/18 10:45 MPV 7.9 fL (7.2-11.7) 08/10/18 10:45 Neut % (Auto) 73.5 % (50.0-75.0) 08/10/18 10:45 Lymph % (Auto) 16.8 % (20.0-40.0) L 08/10/18 10:45 Nye % (Auto) 8.0 % (0.0-10.0) 08/10/18 10:45 Eos % (Auto) 1.4 % (0.0-4.0) 08/10/18 10:45 Baso % (Auto) 0.3 % (0.0-2.0) 08/10/18 10:45 Neut # (Auto) 6.1 K/uL (1.8-7.0) 08/10/18 10:45 Lymph # (Auto) 1.4 K/uL (1.0-4.3) 08/10/18 10:45 Nye # (Auto) 0.7 K/uL (0.0-0.8) 08/10/18 10:45 Eos # (Auto) 0.1 K/uL (0.0-0.7) 08/10/18 10:45 Baso # (Auto) 0.0 K/uL (0.0-0.2) 08/10/18 10:45 PT 12.0 SECONDS (9.7-12.2) 08/07/18 23:25 INR 1.1 08/07/18 23:25 Puncture Site Rr 08/02/18 23:44 pCO2 35 mm/Hg (35-45) 08/02/18 23:44 pO2 107 mm/Hg (80-100) H 08/02/18 23:44 HCO3 24.8 mmol/L (21-28) 08/02/18 23:44 ABG pH 7.44 (7.35-7.45) 08/02/18 23:44 ABG Total CO2 24.9 mmol/L (22-28) 08/02/18 23:44 ABG O2 Saturation 99.2 % (95-98) H 08/02/18 23:44 ABG Base Excess -0.1 mmol/L (-2.0-3.0) 08/02/18 23:44 ABG Hemoglobin 10.3 g/dL (11.7-17.4) L 08/02/18 23:44 ABG Carboxyhemoglobin 2.0 % (0.5-1.5) H 08/02/18 23:44 POC ABG HHb (Measured) 0.8 % (0.0-5.0) 08/02/18 23:44 ABG Methemoglobin 1.0 % (0.0-3.0) 08/02/18 23:44 [place] Test Pos 08/02/18 23:44 A-a O2 Difference 134.0 mm/Hg 08/02/18 23:44 Respiratory Index 1.3 08/02/18 23:44 Hgb O2 Saturation 96.2 % (95.0-98.0) 08/02/18 23:44 Vent Mode Bipap 08/02/18 23:44 FiO2 40.0 % 08/02/18 23:44 Inspiratory BiPAP 12 08/02/18 23:44 Expiratory BiPAP 6 08/02/18 23:44 Sodium 135 mmol/L (132-148) 08/10/18 10:45 Potassium 4.6 mmol/L (3.6-5.2) 08/10/18 10:45 Chloride 99 mmol/L (98-107) 08/10/18 10:45 Carbon Dioxide 24 mmol/L (22-30) 08/10/18 10:45 Anion Gap 16 (10-20) 08/10/18 10:45 BUN 36 mg/dL (9-20) H 08/10/18 10:45 Creatinine 1.5 mg/dL (0.8-1.5) 08/10/18 10:45 Est GFR ( Amer) 54 08/10/18 10:45 Est GFR (Non-Af Amer) 44 08/10/18 10:45 POC Glucose (mg/dL) 243 mg/dL (65-110) H 08/10/18 06:12 Random Glucose 362 mg/dL (75-110) H 08/10/18 10:45 Calcium 8.8 mg/dl (8.6-10.4) 08/10/18 10:45 Phosphorus 3.1 mg/dL (2.5-4.5) 08/10/18 10:45 Magnesium 2.1 mg/dL (1.6-2.3) 08/10/18 10:45 Total Bilirubin 0.7 mg/dL (0.2-1.3) 08/10/18 10:45 AST 20 U/L (17-59) 08/10/18 10:45 ALT 36 U/L (21-72) 08/10/18 10:45 Alkaline Phosphatase 76 U/L (38-126) 08/10/18 10:45 Total Creatine Kinase 33 U/L (55-170) L 08/04/18 02:47 CK-MB (Mass) 1.50 ng/mL (0.0-3.38) 08/04/18 02:47 Troponin I 0.0820 ng/mL (0.00-0.120) 08/04/18 02:47 NT-Pro-B Natriuret Pep 08231 pg/mL (0-900) H 08/02/18 23:07 Total Protein 6.3 g/dL (6.3-8.3) 08/10/18 10:45 Albumin 3.2 g/dL (3.5-5.0) L 08/10/18 10:45 Globulin 3.1 gm/dL (2.2-3.9) 08/10/18 10:45 Albumin/Globulin Ratio 1.1 (1.0-2.1) 08/10/18 10:45 Urine Color Yellow (YELLOW) 08/02/18 23:07 Urine Clarity Clear (Clear) 08/02/18 23:07 Urine pH 5.0 (5.0-8.0) 08/02/18 23:07 Ur Specific [place] 1.014 (1.003-1.030) 08/02/18 23:07 Urine Protein 2+ mg/dL (NEGATIVE) H 08/02/18 23:07 Urine Glucose (UA) Normal mg/dL (Normal) 08/02/18 23:07 Urine Ketones Negative mg/dL (NEGATIVE) 08/02/18 23:07 Urine Blood 1+ (NEGATIVE) H 08/02/18 23:07 Urine Nitrate Negative (NEGATIVE) 08/02/18 23:07 Urine Bilirubin Negative (NEGATIVE) 08/02/18 23:07 Urine Urobilinogen Normal mg/dL (0.2-1.0) 08/02/18 23:07 Ur Leukocyte Esterase Neg Bahman/uL (Negative) 08/02/18 23:07 Urine WBC (Auto) 1 /hpf (0-5) 08/02/18 23:07 Urine RBC (Auto) 6 /hpf (0-3) H 08/02/18 23:07 Urine Bacteria Occ (<OCC) H 08/02/18 23:07 Discharge Exam - Head Exam Head Exam: NORMAL INSPECTION, NORMOCEPHALIC Discharge Plan - Follow Up Plan Condition: IMPROVED Disposition: HOME/ ROUTINE
--- NOTE | 2018-08-10 12:50 | CP.PCM.PN ---
<Katherine Kevin - Last Filed: 08/10/18 12:48> Subjective - Date & Time of Evaluation Date of Evaluation: 08/10/18 Time of Evaluation: 12:48 - Subjective Subjective: Podiatry - Dr. Frey 83M seen and evaluated this AM for right ankle wound. Patient OOB in chair, NAD. Patient is a poor historian. No new complaints to ankle wound. Multipodus boots absent b/l. Objective - Vital Signs/Intake and Output Vital Signs (last 24 hours): Temp Pulse Resp BP Pulse Ox 98.0 F 62 20 153/64 H 96 08/10/18 07:00 08/10/18 07:15 08/10/18 07:00 08/10/18 10:41 08/10/18 07:00 - Medications Medications: Current Medications Amiodarone HCl (Cordarone) 200 mg PO DAILY [facility] Last Admin: 08/10/18 10:41 Dose: 200 mg Amlodipine Besylate (Norvasc) 10 mg PO DAILY [facility] Last Admin: 08/10/18 10:42 Dose: 10 mg Aspirin (Ecotrin) 81 mg PO DAILY [facility] Last Admin: 08/10/18 10:41 Dose: 81 mg Betamethasone/Clotrimazole (Lotrisone) 0 gm TOP BID [facility] Last Admin: 08/10/18 10:51 Dose: 1 oin Carbidopa/Levodopa (Sinemet /) 1 tab PO TID [facility] Last Admin: 08/10/18 10:42 Dose: 1 tab Carvedilol (Coreg) 6.25 mg PO BID [facility] Last Admin: 08/10/18 10:41 Dose: 6.25 mg Dextrose (Dextrose 50% Inj) 0 ml IV STAT PRN; Protocol PRN Reason: Hypoglycemia Protocol Dextrose (Glutose 15) 0 gm PO ONCE PRN; Protocol PRN Reason: Hypoglycemia Protocol Docusate Sodium (Colace) 100 mg PO TID [facility] Last Admin: 08/10/18 10:41 Dose: 100 mg Enoxaparin Sodium (Lovenox) 30 mg SC DAILY [facility] Last Admin: 08/10/18 11:03 Dose: Not Given Finasteride (Proscar) 5 mg PO DAILY [facility] Last Admin: 08/10/18 10:42 Dose: 5 mg Furosemide (Lasix) 20 mg IVP DAILY [facility] Last Admin: 08/10/18 10:41 Dose: 20 mg Glucagon (Glucagen Diagnostic Kit) 0 mg IM STAT PRN; Protocol PRN Reason: Hypoglycemia Protocol Insulin Human Regular (Novolin R) 0 unit SC ACHS [facility]; Protocol Last Admin: 08/10/18 12:15 Dose: 408 units Lisinopril (Zestril) 10 mg PO DAILY [facility] Last Admin: 08/10/18 10:42 Dose: 10 mg Mupirocin (Bactroban Ointment) 0 gm TOP DAILY [facility] Last Admin: 08/10/18 10:49 Dose: 1 oin Pantoprazole Sodium (Protonix Ec Tab) 40 mg PO DAILY [facility] Last Admin: 08/10/18 10:42 Dose: 40 mg Rosuvastatin Calcium (Crestor) 2.5 mg PO HS [facility] Last Admin: 08/09/18 21:27 Dose: Not Given Tamsulosin HCl (Flomax) 0.4 mg PO DAILY [facility] Last Admin: 08/10/18 10:41 Dose: 0.4 mg - Labs Labs: 08/10/18 10:45 08/10/18 10:45 PT 12.0 SECONDS (9.7-12.2) 08/07/18 23:25 INR 1.1 08/07/18 23:25 - Constitutional Appears: Well, Non-toxic, No Acute Distress - Extremities Exam Additional comments: Dressing to RLE clean/dry/intact - Neurological Exam Neurological Exam: Awake - Psychiatric Exam Psychiatric exam: Normal Affect, Normal Mood Assessment and Plan - Assessment and Plan (Free Text) Assessment: 83M PMHx Alzheimer's Disease, Parkinson's disease, HTN, DM, CAD status post stent, Systolic CHF, BPH, DM, hypercholesterolemia with right lateral malleolus ulceration Plan: Patient seen and evaluated alongside attending Dr. Frey Afebrile Right ankle XR reviewed: unremarkable Continue local wound care QD - Bactroban, Optifoam Continue offloading boots at all times in bed Pain control per primary team Podiatry will continue to follow <Asher Frey - Last Filed: 08/11/18 07:09> Objective - Vital Signs/Intake and Output Vital Signs (last 24 hours): Temp Pulse Resp BP Pulse Ox 97.6 F 59 L 20 156/62 H 98 08/11/18 04:00 08/11/18 04:00 08/11/18 04:00 10/05/18 04:00 08/11/18 04:00 Intake and Output: 08/11/18 08/11/18 06:59 18:59 Output Total 200 Balance -200 - Medications Medications: Current Medications Amiodarone HCl (Cordarone) 200 mg PO DAILY [facility] Last Admin: 08/10/18 10:41 Dose: 200 mg Amlodipine Besylate (Norvasc) 10 mg PO DAILY [facility] Last Admin: 08/10/18 10:42 Dose: 10 mg Aspirin (Ecotrin) 81 mg PO DAILY [facility] Last Admin: 08/10/18 10:41 Dose: 81 mg Betamethasone/Clotrimazole (Lotrisone) 0 gm TOP BID [facility] Last Admin: 08/10/18 18:54 Dose: 1 oin Carbidopa/Levodopa (Sinemet ) 1 tab PO TID [facility] Last Admin: 08/10/18 18:54 Dose: 1 tab Carvedilol (Coreg) 6.25 mg PO BID [facility] Last Admin: 08/10/18 18:53 Dose: 6.25 mg Dextrose (Dextrose 50% Inj) 0 ml IV STAT PRN; Protocol PRN Reason: Hypoglycemia Protocol Dextrose (Glutose 15) 0 gm PO ONCE PRN; Protocol PRN Reason: Hypoglycemia Protocol Docusate Sodium (Colace) 100 mg PO TID [facility] Last Admin: 08/10/18 18:53 Dose: 100 mg Enoxaparin Sodium (Lovenox) 30 mg SC DAILY [facility] Last Admin: 08/10/18 11:03 Dose: Not Given Finasteride (Proscar) 5 mg PO DAILY [facility] Last Admin: 08/10/18 10:42 Dose: 5 mg Furosemide (Lasix) 20 mg IVP DAILY [facility] Last Admin: 08/10/18 10:41 Dose: 20 mg Glucagon (Glucagen Diagnostic Kit) 0 mg IM STAT PRN; Protocol PRN Reason: Hypoglycemia Protocol Insulin Human Regular (Novolin R) 0 unit SC [facility]; Protocol Last Admin: 08/10/18 21:46 Dose: Not Given Lisinopril (Zestril) 10 mg PO DAILY [facility] Last Admin: 08/10/18 10:42 Dose: 10 mg Mupirocin (Bactroban Ointment) 0 gm TOP DAILY [facility] Last Admin: 08/10/18 10:49 Dose: 1 oin Pantoprazole Sodium (Protonix Ec Tab) 40 mg PO DAILY [facility] Last Admin: 08/10/18 10:42 Dose: 40 mg Rosuvastatin Calcium (Crestor) 2.5 mg PO HS [facility] Last Admin: 08/10/18 21:46 Dose: Not Given Tamsulosin HCl (Flomax) 0.4 mg PO DAILY [facility] Last Admin: 08/10/18 10:41 Dose: 0.4 mg - Labs Labs: 08/10/18 10:45 08/10/18 10:45 PT 12.0 SECONDS (9.7-12.2) 08/07/18 23:25 INR 1.1 08/07/18 23:25 Assessment and Plan - Assessment and Plan (Free Text) Plan: pt seen at bedside with resident . agree with above findings . continue local wound care . DR Heck 08/10/18
--- NOTE | 2018-08-10 19:36 | CP.PCM.PN ---
Subjective - Date & Time of Evaluation Date of Evaluation: 08/10/18 Time of Evaluation: 08:30 - Subjective Subjective: Jasvir Batista PGY-1, Medicine progress note for Dr. Lopez Pt was seen and examined at bedside. Pt is in no acute distress and resting comfortably. Pt is a poor historian due to late parkinson's disease and Alzheimer's disease and a full ROS remains unobtainable. However, pt denies headache, fever, chills, chest pain, sob, abdominal pain, n/v/d. Erythematous areas to the axillas and inguinal folds are not bothering the patient. Objective - Vital Signs/Intake and Output Vital Signs (last 24 hours): Temp Pulse Resp BP Pulse Ox 97.9 F 61 20 139/67 95 08/10/18 15:00 08/10/18 15:00 08/10/18 15:00 08/10/18 15:00 08/10/18 15:00 - Medications Medications: Current Medications Amiodarone HCl (Cordarone) 200 mg PO DAILY [facility] Last Admin: 08/10/18 10:41 Dose: 200 mg Amlodipine Besylate (Norvasc) 10 mg PO DAILY [facility] Last Admin: 08/10/18 10:42 Dose: 10 mg Aspirin (Ecotrin) 81 mg PO DAILY [facility] Last Admin: 08/10/18 10:41 Dose: 81 mg Betamethasone/Clotrimazole (Lotrisone) 0 gm TOP BID [facility] Last Admin: 08/10/18 18:54 Dose: 1 oin Carbidopa/Levodopa (Sinemet 10/100) 1 tab PO TID [facility] Last Admin: 08/10/18 18:54 Dose: 1 tab Carvedilol (Coreg) 6.25 mg PO BID [facility] Last Admin: 08/10/18 18:53 Dose: 6.25 mg Dextrose (Dextrose 50% Inj) 0 ml IV STAT PRN; Protocol PRN Reason: Hypoglycemia Protocol Dextrose (Glutose 15) 0 gm PO ONCE PRN; Protocol PRN Reason: Hypoglycemia Protocol Docusate Sodium (Colace) 100 mg PO TID [facility] Last Admin: 08/10/18 18:53 Dose: 100 mg Enoxaparin Sodium (Lovenox) 30 mg SC DAILY [facility] Last Admin: 08/10/18 11:03 Dose: Not Given Finasteride (Proscar) 5 mg PO DAILY [facility] Last Admin: 08/10/18 10:42 Dose: 5 mg Furosemide (Lasix) 20 mg IVP DAILY [facility] Last Admin: 08/10/18 10:41 Dose: 20 mg Glucagon (Glucagen Diagnostic Kit) 0 mg IM STAT PRN; Protocol PRN Reason: Hypoglycemia Protocol Insulin Human Regular (Novolin R) 0 unit SC ACHS [facility]; Protocol Last Admin: 08/10/18 17:30 Dose: Not Given Lisinopril (Zestril) 10 mg PO DAILY [facility] Last Admin: 08/10/18 10:42 Dose: 10 mg Mupirocin (Bactroban Ointment) 0 gm TOP DAILY [facility] Last Admin: 08/10/18 10:49 Dose: 1 oin Pantoprazole Sodium (Protonix Ec Tab) 40 mg PO DAILY [facility] Last Admin: 08/10/18 10:42 Dose: 40 mg Rosuvastatin Calcium (Crestor) 2.5 mg PO HS [facility] Last Admin: 08/09/18 21:27 Dose: Not Given Tamsulosin HCl (Flomax) 0.4 mg PO DAILY [facility] Last Admin: 08/10/18 10:41 Dose: 0.4 mg - Labs Labs: 08/10/18 10:45 08/10/18 10:45 PT 12.0 SECONDS (9.7-12.2) 08/07/18 23:25 INR 1.1 08/07/18 23:25 - Constitutional Appears: Non-toxic, No Acute Distress - Head Exam Head Exam: NORMAL INSPECTION - Eye Exam Eye Exam: EOMI, Normal appearance Additional comments: (+) intense eye contact during times of agitation with bulging eyes and eyelid retraction - ENT Exam ENT Exam: Mucous Membranes Moist - Neck Exam Neck Exam: Normal Inspection - Respiratory Exam Respiratory Exam: Decreased Breath Sounds (at the bases bilaterally), Clear to Ausculation Bilateral. absent: Rales, Rhonchi, Wheezes, Respiratory Distress - Cardiovascular Exam Cardiovascular Exam: REGULAR RHYTHM, +S1, +S2 - GI/Abdominal Exam GI & Abdominal Exam: Soft, Normal Bowel Sounds. absent: Firm, Guarding, Rigid, Tenderness - Extremities Exam Extremities Exam: Normal Inspection. absent: Pedal Edema, Tenderness Additional comments: (+) bilateral upper extremity resting tremors - Neurological Exam Neurological Exam: Alert, Awake - Psychiatric Exam Psychiatric exam: Normal Mood - Skin Skin Exam: Dry, Warm Additional comments: (+) right lateral malleous ulcer with dressing; c/d/i; no evidence of bleeding (+) blanching areas of erythema to the bilateral axillas and bilateral inguinal folds are unchanged; nontender, no abrasions; (+) warm to touch, (-) signs of excoriation or bleeding Assessment and Plan - Assessment and Plan (Free Text) Assessment: Patient is a 83 year old male with past medical history of Alzheimer's Disease, Parkinson's disease, HTN, DM, CAD status post stent, Systolic CHF, pacemaker/AICD who presented to the emergency dept via EMS with shortness of breath x 3 days. Plan: Shortness of breath likely due to Acute on Chronic Systolic Congestive Heart Failure -Stable, afebrile -Monitor on telemetry -Patient with pacemaker/AICD -BNP 10,000 on admission -Last echocardiogram 05/2018 showed ED 30-35%, severely dilated LV, moderate to severe MR (see full report) -Continue Lasix 20mg IVP daily -Patient on both lopressor 25mg Q12H and Coreg 6.125mg PO BID, unclear why, holding lopressor -Cardiology on consult, Dr Garcia, help appreciated; cardiac catheterization for atrial fibrillation with wide complex tachycarda - pt underwent cardiac catheterization today (08/07) - well tolerated - coronaries are normal, EF is 20-25%, EDP is 12 -Daily weights, strict intake/output -Supplemental O2 as needed Ventricular Tachycardia- resolved -patient transferred to ICU on 08/03 given 2 gm of magnesium, 150 mg IV Amiodarone, placed on BIPAP and shortly afterwards he broke and back in base line rhythm with HR 70s. -patient transferred back to tele on 08/04 -continue Amiodarone 200mg po daily -will need biventricular defibrillator interrogated - prior records reviewed as to what kind of device pt has, but unrevealing - will f/u with family Erythematous rash; likely candidiasis (08/09) - pt remains afebrile - will treat with lortisone cream BID to affected areas - unchanged from initial presensation - will monitor Diabetic right lateral ankle ulcer - podiatry consulted, Dr. Frey, recs appreciated - wound management as per Podiatry - Bactroban, Optifoam - continue offloading boots; reapplied by me - right ankle x-ray ordered by podiatry, shows no acute fracture, subluxation or dislocation. Limited degenerative joint disease subtalar joint as well as incidentally at the midfoot joint diffusely. Hx of CAD -Continue ASA 81mg PO daily -Continue Amiodarone 200mg PO daily -Cardiology on consult, help appreciated Hx of hypertension - pt is hemodynamically stable -Continue Norvasc 10mg PO daily -Lisinopril 10mg PO daily, Coreg 6.25mg PO BID as per cardio -continue to monitor Diabetes Mellitus, Type 2 -Low dose insulin scale ACHS -Accuchecks ACHS -Last HgA1c 6.2% -Hypoglycemia protocol BPH -Continue Flomax 0.4mg PO daily -Continue Proscar 5mg PO daily History of Parkinson's Disease -Continue Carbidopa/Levodopa 1 tab PO TID GI/DVT ppx: -Protonix 40mg IVP daily -Lovenox 40mg SC daily Dispo: Discharge was unable to completed today because family was not answering phone called by [facility]. Multiple attempts were made. Possible discharge tomorrow to home. Home health aid/visiting nurse to be set up by [facility]. Case was discussed and reviewed with Dr. Lopez All medical management as per Dr. Jessica Batista PGY-1
[2018-08-10] MEDS: Rosuvastatin Calcium 2.5 mg Tab PO SCH (21:46)
--- NOTE | 2018-08-10 23:31 | CP.PCM.PN ---
Subjective - Date & Time of Evaluation Date of Evaluation: 08/10/18 Time of Evaluation: 18:15 - Subjective Subjective: Patient seen and evaluated Not in distress Physical Examination - Additional Findings Additional findings: - Constitutional Appears: In Acute Distress, Chronically Ill - Head Exam Head Exam: ATRAUMATIC, NORMAL INSPECTION - Eye Exam Eye Exam: EOMI, Normal appearance - Respiratory Exam Respiratory Exam: Decreased Breath Sounds, Rales. absent: Clear to Auscultation Bilateral - Cardiovascular Exam Cardiovascular Exam: REGULAR RHYTHM, +S1, +S2, Systolic Murmur - GI/Abdominal Exam GI & Abdominal Exam: Soft. absent: Guarding, Rebound, Rigid, Tenderness - Extremities Exam Extremities exam: Positive for: pedal pulses present. Negative for: calf tenderness - Neurological Exam Neurological exam: Alert - Psychiatric Exam Psychiatric exam: Normal Affect, Normal Mood - Skin Skin Exam: Dry, Normal Color, Warm Assessment and Plan - Assessment and Plan (Free Text) Assessment: A/P: Patient is a 83 year old male with past medical history of Alzheimer's Disease, Parkinson's disease, HTN, DM, CAD status post stent, Systolic CHF, pacemaker/AICD who presented to the emergency dept via EMS with shortness of breath x 3 days. Shortness of breath likely due to Acute on Chronic Systolic Congestive Heart Failure -Stable, afebrile -Monitor on telemetry -Patient with pacemaker/AICD -BNP 10,000 on admission -S/P Lasix 80mg IVP in the emergency dept -Last echocardiogram 05/2018 showed ED 30-35%, severely dilated LV, moderate to severe MR (see full report) -CXR showed pulmonary venous congestion (official read pending) -We will continue Lasix 20mg IVP daily -Patient on both lopressor 25mg Q12H and Coreg 6.125mg PO BID, unclear why, will hold lopressor at this time. -Cardiology on consult, Dr Garcia, help appreciated -Daily weights, strict intake/output -Supplemental O2 Ventricular Tachycardia -patient transferred to ICU on 08/03 given 2 gem of magnesium, 150 mg IV Amiodarone, placed on BIPAP and shortly afterwards he broke and back in base line rhythm with HR 70s. -patient transferred back to tele on 08/04 -will need biventricular defibrillator interrogated CAD -Continue ASA 81mg PO daily -Continue Amiodarone 200mg PO daily -Cardiology on consult, help appreciated Hypertension -Continue Norvasc 10mg PO daily -Lisinopril 10mg PO daily, Coreg 6.25mg PO BID -Monitor vitals Diabetes Mellitus, Type 2 -Low dose insulin scale ACHS -Accuchecks ACHS -Last HgA1c 6.2% -Hypoglycemia protocol BPH -Continue Flomax 0.4mg PO daily -Continue Proscar 5mg PO daily History of Parkinson's Disease -Continue Carbidopa/Levodopa 1 tab PO TID -Continue Seroquel 25mg PO HS GI/DVT ppx: -Protonix 40mg IVP daily -Lovenox 40mg SC daily Assessment and Plan: I melissa CMP with low EF s/p AICD Acute on Chronic systolic CHF A Fib with wide complex tachycardia Due to Az Dementia not a candidate for halfway anticoagulation Continue Medical management Objective - Vital Signs/Intake and Output Vital Signs (last 24 hours): Temp Pulse Resp BP Pulse Ox 97.9 F 61 20 139/67 95 08/10/18 15:00 08/10/18 15:00 08/10/18 15:00 08/10/18 15:00 08/10/18 15:00 - Medications Medications: Current Medications Amiodarone HCl (Cordarone) 200 mg PO DAILY [facility] Last Admin: 08/10/18 10:41 Dose: 200 mg Amlodipine Besylate (Norvasc) 10 mg PO DAILY [facility] Last Admin: 08/10/18 10:42 Dose: 10 mg Aspirin (Ecotrin) 81 mg PO DAILY [facility] Last Admin: 08/10/18 10:41 Dose: 81 mg Betamethasone/Clotrimazole (Lotrisone) 0 gm TOP BID [facility] Last Admin: 08/10/18 18:54 Dose: 1 oin Carbidopa/Levodopa (Sinemet 10/100) 1 tab PO TID [facility] Last Admin: 08/10/18 18:54 Dose: 1 tab Carvedilol (Coreg) 6.25 mg PO BID [facility] Last Admin: 08/10/18 18:53 Dose: 6.25 mg Dextrose (Dextrose 50% Inj) 0 ml IV STAT PRN; Protocol PRN Reason: Hypoglycemia Protocol Dextrose (Glutose 15) 0 gm PO ONCE PRN; Protocol PRN Reason: Hypoglycemia Protocol Docusate Sodium (Colace) 100 mg PO TID [facility] Last Admin: 08/10/18 18:53 Dose: 100 mg Enoxaparin Sodium (Lovenox) 30 mg SC DAILY [facility] Last Admin: 08/10/18 11:03 Dose: Not Given Finasteride (Proscar) 5 mg PO DAILY [facility] Last Admin: 08/10/18 10:42 Dose: 5 mg Furosemide (Lasix) 20 mg IVP DAILY [facility] Last Admin: 08/10/18 10:41 Dose: 20 mg Glucagon (Glucagen Diagnostic Kit) 0 mg IM STAT PRN; Protocol PRN Reason: Hypoglycemia Protocol Insulin Human Regular (Novolin R) 0 unit SC [facility]; Protocol Last Admin: 08/10/18 21:46 Dose: Not Given Lisinopril (Zestril) 10 mg PO DAILY [facility] Last Admin: 08/10/18 10:42 Dose: 10 mg Mupirocin (Bactroban Ointment) 0 gm TOP DAILY [facility] Last Admin: 08/10/18 10:49 Dose: 1 oin Pantoprazole Sodium (Protonix Ec Tab) 40 mg PO DAILY [facility] Last Admin: 08/10/18 10:42 Dose: 40 mg Rosuvastatin Calcium (Crestor) 2.5 mg PO HS [facility] Last Admin: 08/10/18 21:46 Dose: Not Given Tamsulosin HCl (Flomax) 0.4 mg PO DAILY [facility] Last Admin: 08/10/18 10:41 Dose: 0.4 mg - Labs Labs: 08/10/18 10:45 08/10/18 10:45 PT 12.0 SECONDS (9.7-12.2) 08/07/18 23:25 INR 1.1 08/07/18 23:25
[2018-08-11 08:05] VITALS: PULSE 63; TEMP 98; O2SAT 99
--- NOTE | 2018-08-11 08:12 | CP.PCM.PN ---
Subjective - Date & Time of Evaluation Date of Evaluation: 08/11/18 Time of Evaluation: 08:12 - Subjective Subjective: Podiatry - Dr. Frey 83M seen and evaluated this AM for right ankle wound. Unable to obtain HPI due to patient's mental status. Offers no new complaints to right ankle wound, non- compliant with multipodus boots. Patient was planned for d/c yesterday however unable to contact family members. Objective - Vital Signs/Intake and Output Vital Signs (last 24 hours): Temp Pulse Resp BP Pulse Ox 98.0 F 63 20 140/72 99 08/11/18 07:00 08/11/18 07:00 08/11/18 07:00 08/11/18 07:00 08/11/18 07:00 Intake and Output: 08/11/18 08/11/18 06:59 18:59 Output Total 450 Balance -450 - Medications Medications: Current Medications Amiodarone HCl (Cordarone) 200 mg PO DAILY [facility] Last Admin: 08/10/18 10:41 Dose: 200 mg Amlodipine Besylate (Norvasc) 10 mg PO DAILY [facility] Last Admin: 08/10/18 10:42 Dose: 10 mg Aspirin (Ecotrin) 81 mg PO DAILY [facility] Last Admin: 08/10/18 10:41 Dose: 81 mg Betamethasone/Clotrimazole (Lotrisone) 0 gm TOP BID [facility] Last Admin: 08/10/18 18:54 Dose: 1 oin Carbidopa/Levodopa (Sinemet 10/100) 1 tab PO TID [facility] Last Admin: 08/10/18 18:54 Dose: 1 tab Carvedilol (Coreg) 6.25 mg PO BID [facility] Last Admin: 08/10/18 18:53 Dose: 6.25 mg Dextrose (Dextrose 50% Inj) 0 ml IV STAT PRN; Protocol PRN Reason: Hypoglycemia Protocol Dextrose (Glutose 15) 0 gm PO ONCE PRN; Protocol PRN Reason: Hypoglycemia Protocol Docusate Sodium (Colace) 100 mg PO TID [facility] Last Admin: 08/10/18 18:53 Dose: 100 mg Enoxaparin Sodium (Lovenox) 30 mg SC DAILY [facility] Last Admin: 08/10/18 11:03 Dose: Not Given Finasteride (Proscar) 5 mg PO DAILY [facility] Last Admin: 10/04/18 10:42 Dose: 5 mg Furosemide (Lasix) 20 mg IVP DAILY [facility] Last Admin: 08/10/18 10:41 Dose: 20 mg Glucagon (Glucagen Diagnostic Kit) 0 mg IM STAT PRN; Protocol PRN Reason: Hypoglycemia Protocol Insulin Human Regular (Novolin R) 0 unit SC ACHS [facility]; Protocol Last Admin: 08/10/18 21:46 Dose: Not Given Lisinopril (Zestril) 10 mg PO DAILY [facility] Last Admin: 08/10/18 10:42 Dose: 10 mg Mupirocin (Bactroban Ointment) 0 gm TOP DAILY [facility] Last Admin: 08/10/18 10:49 Dose: 1 oin Pantoprazole Sodium (Protonix Ec Tab) 40 mg PO DAILY [facility] Last Admin: 08/10/18 10:42 Dose: 40 mg Rosuvastatin Calcium (Crestor) 2.5 mg PO HS [facility] Last Admin: 08/10/18 21:46 Dose: Not Given Tamsulosin HCl (Flomax) 0.4 mg PO DAILY [facility] Last Admin: 08/10/18 10:41 Dose: 0.4 mg - Labs Labs: 08/10/18 10:45 08/10/18 10:45 PT 12.0 SECONDS (9.7-12.2) 08/07/18 23:25 INR 1.1 08/07/18 23:25 - Constitutional Appears: Well, Non-toxic, No Acute Distress - Extremities Exam Additional comments: RLE focused physical exam: VASC: DP and PT pulses nonpalpable. CFT <3 seconds x5. Temperature gradient cool to cool. No edema. NEURO: Gross sensation intact. DERM: Ulceration measuring approximately 3 x 3 x 0.1 cm noted to lateral malleolus - wound base is 75% granular and 25% fibrotic; no drainage noted; no purulence noted; no malodor; no undermining; no tunneling; no probe to bone; minimal periwound erythema; no hyperkeratosis. ORTHO: Pain on palpation periwound. - Neurological Exam Neurological Exam: Alert, Awake - Psychiatric Exam Psychiatric exam: Agitated Assessment and Plan - Assessment and Plan (Free Text) Assessment: 83M PMHx Alzheimer's Disease, Parkinson's disease, HTN, DM, CAD status post stent, Systolic CHF, BPH, DM, hypercholesterolemia with right lateral malleolus ulceration Plan: Patient seen and evaluated Discussed with attending, Dr. Frey Afebrirenzo Right ankle XR reviewed: unremarkable Continue local wound care QD - Bactroban, Optifoam Continue offloading boots at all times in bed; pt noncompliant Pain control per primary team Podiatry will continue to follow
[2018-08-11] MEDS: (Novolin R) Insulin Human Regular 100 units/ml vial SC SCH ×2 (08:22→12:26)
[2018-08-11] MEDS: Enoxaparin 30 mg Syringe SC SCH (11:32)
[2018-08-11] MEDS: Pantoprazole 40 mg EC Tab PO SCH (11:37)
[2018-08-11 11:45] LABS: BASO % 0.4 % (0.0-2.0); EOS # 0.1 K/uL (0.0-0.7); EOS % 1.4 % (0.0-4.0); HEMOGLOBIN 11.3 g/dL (12.0-18.0); LYMPH # 1.3 K/uL (1.0-4.3); LYMPH % 17.1 % (20.0-40.0); MEAN CORPUSCULAR HEMOGLOBIN 27.6 pg (27.0-31.0); MEAN CORPUSCULAR HGB CONC 34.1 g/dL (33.0-37.0); MEAN PLATELET VOLUME 8.5 fL (7.2-11.7); MONO # 0.7 K/uL (0.0-0.8); MONO % 9.1 % (0.0-10.0); NEUT # 5.6 K/uL (1.8-7.0); NRBC % 0.1 % (0.0-2.0); RBC 4.09 Mil/uL (4.40-5.90); RED CELL DISTRIBUTION WIDTH 14.8 % (11.5-14.5); WHITE BLOOD COUNT 7.8 K/uL (4.8-10.8)
[2018-08-11 11:52] VITALS: BP 144/64
[2018-08-11 12:29] LABS: ALBUMIN 3.1 g/dL (3.5-5.0); ALT/SGPT 36 U/L (21-72); AST/SGOT 20 U/L (17-59); BLOOD UREA NITROGEN 28 mg/dL (9-20); CALCIUM 9.1 mg/dl (8.6-10.4); GFR NON-AFRICAN AMERICAN 58
[2018-08-11] MEDS: Clotrimazole/Betamethasone Cream(15 gm) TOP SCH (13:46)
--- NOTE | 2018-08-11 14:31 | CP.PCM.DIS ---
Provider - Provider Date of Admission: 08/02/18 23:46 Attending physician: Eber Lopez Jr, MD Time Spent in preparation of Discharge (in minutes): 35 Diagnosis - Discharge Diagnosis (1) CHF (congestive heart failure) Status: Chronic (2) Ventricular tachycardia Status: Chronic (3) CAD (coronary artery disease) Status: Chronic (4) Elaine rash of groin Status: Acute (5) Diabetic ulcer of ankle Status: Acute (6) BPH (benign prostatic hyperplasia) Status: Chronic (7) Parkinson disease Status: Chronic (8) HTN (hypertension) Status: Chronic Hospital Course - Lab Results Lab Results: Micro Results 08/03/18 06:26 Blood-Venous Blood Culture - Final NO GROWTH AFTER 5 DAYS 08/03/18 06:26 Blood-Venous Gram Stain - Final TEST NOT PERFORMED 08/03/18 06:24 Blood-Venous Blood Culture - Final NO GROWTH AFTER 5 DAYS 08/03/18 06:24 Blood-Venous Gram Stain - Final TEST NOT PERFORMED 08/04/18 19:15 Naris MRSA Culture - Final MRSA NOT DETECTED 08/04/18 06:27 Nose MRSA Culture (Admit) - Final MRSA NOT DETECTED Most Recent Lab Values WBC 7.8 K/uL (4.8-10.8) 08/11/18 11:29 RBC 4.09 Mil/uL (4.40-5.90) L 08/11/18 11:29 Hgb 11.3 g/dL (12.0-18.0) L 08/11/18 11:29 Hct 33.1 % (35.0-51.0) L 08/11/18 11:29 MCV 81.0 fL (80.0-94.0) 08/11/18 11:29 MCH 27.6 pg (27.0-31.0) 08/11/18 11:29 MCHC 34.1 g/dL (33.0-37.0) 08/11/18 11:29 RDW 14.8 % (11.5-14.5) H 08/11/18 11:29 Plt Count 410 K/uL (130-400) H 08/11/18 11:29 MPV 8.5 fL (7.2-11.7) 08/11/18 11:29 Neut % (Auto) 72.0 % (50.0-75.0) 08/11/18 11:29 Lymph % (Auto) 17.1 % (20.0-40.0) L 08/11/18 11:29 Amelia % (Auto) 9.1 % (0.0-10.0) 08/11/18 11:29 Eos % (Auto) 1.4 % (0.0-4.0) 08/11/18 11:29 Baso % (Auto) 0.4 % (0.0-2.0) 08/11/18 11:29 Neut # (Auto) 5.6 K/uL (1.8-7.0) 08/11/18 11:29 Lymph # (Auto) 1.3 K/uL (1.0-4.3) 08/11/18 11:29 Amelia # (Auto) 0.7 K/uL (0.0-0.8) 08/11/18 11:29 Eos # (Auto) 0.1 K/uL (0.0-0.7) 08/11/18 11:29 Baso # (Auto) 0.0 K/uL (0.0-0.2) 08/11/18 11:29 PT 12.0 SECONDS (9.7-12.2) 08/07/18 23:25 INR 1.1 08/07/18 23:25 Puncture Site Rr 08/02/18 23:44 pCO2 35 mm/Hg (35-45) 08/02/18 23:44 pO2 107 mm/Hg (80-100) H 08/02/18 23:44 HCO3 24.8 mmol/L (21-28) 08/02/18 23:44 ABG pH 7.44 (7.35-7.45) 08/02/18 23:44 ABG Total CO2 24.9 mmol/L (22-28) 08/02/18 23:44 ABG O2 Saturation 99.2 % (95-98) H 08/02/18 23:44 ABG Base Excess -0.1 mmol/L (-2.0-3.0) 08/02/18 23:44 ABG Hemoglobin 10.3 g/dL (11.7-17.4) L 08/02/18 23:44 ABG Carboxyhemoglobin 2.0 % (0.5-1.5) H 08/02/18 23:44 POC ABG HHb (Measured) 0.8 % (0.0-5.0) 08/02/18 23:44 ABG Methemoglobin 1.0 % (0.0-3.0) 08/02/18 23:44 [place] Test Pos 08/02/18 23:44 A-a O2 Difference 134.0 mm/Hg 08/02/18 23:44 Respiratory Index 1.3 08/02/18 23:44 Hgb O2 Saturation 96.2 % (95.0-98.0) 08/02/18 23:44 Vent Mode Bipap 08/02/18 23:44 FiO2 40.0 % 08/02/18 23:44 Inspiratory BiPAP 12 08/02/18 23:44 Expiratory BiPAP 6 08/02/18 23:44 Sodium 137 mmol/L (132-148) 08/11/18 11:29 Potassium 4.3 mmol/L (3.6-5.2) 08/11/18 11:29 Chloride 101 mmol/L (98-107) 08/11/18 11:29 Carbon Dioxide 26 mmol/L (22-30) 08/11/18 11:29 Anion Gap 14 (10-20) 08/11/18 11:29 BUN 28 mg/dL (9-20) H 08/11/18 11:29 Creatinine 1.2 mg/dL (0.8-1.5) 08/11/18 11:29 Est GFR ( Amer) > 60 08/11/18 11:29 Est GFR (Non-Af Amer) 58 08/11/18 11:29 POC Glucose (mg/dL) 117 mg/dL (65-110) H 08/10/18 16:50 Random Glucose 269 mg/dL (75-110) H 08/11/18 11:29 Calcium 9.1 mg/dl (8.6-10.4) 08/11/18 11:29 Phosphorus 3.2 mg/dL (2.5-4.5) 08/11/18 11:29 Magnesium 2.1 mg/dL (1.6-2.3) 08/11/18 11:29 Total Bilirubin 0.8 mg/dL (0.2-1.3) 08/11/18 11:29 AST 20 U/L (17-59) 08/11/18 11:29 ALT 36 U/L (21-72) 08/11/18 11:29 Alkaline Phosphatase 73 U/L (38-126) 08/11/18 11:29 Total Creatine Kinase 33 U/L (55-170) L 08/04/18 02:47 CK-MB (Mass) 1.50 ng/mL (0.0-3.38) 08/04/18 02:47 Troponin I 0.0820 ng/mL (0.00-0.120) 08/04/18 02:47 NT-Pro-B Natriuret Pep 95755 pg/mL (0-900) H 08/02/18 23:07 Total Protein 6.4 g/dL (6.3-8.3) 08/11/18 11:29 Albumin 3.1 g/dL (3.5-5.0) L 08/11/18 11:29 Globulin 3.2 gm/dL (2.2-3.9) 08/11/18 11:29 Albumin/Globulin Ratio 1.0 (1.0-2.1) 08/11/18 11:29 Urine Color Yellow (YELLOW) 08/02/18 23:07 Urine Clarity Clear (Clear) 08/02/18 23:07 Urine pH 5.0 (5.0-8.0) 08/02/18 23:07 Ur Specific [place] 1.014 (1.003-1.030) 08/02/18 23:07 Urine Protein 2+ mg/dL (NEGATIVE) H 08/02/18 23:07 Urine Glucose (UA) Normal mg/dL (Normal) 08/02/18 23:07 Urine Ketones Negative mg/dL (NEGATIVE) 08/02/18 23:07 Urine Blood 1+ (NEGATIVE) H 08/02/18 23:07 Urine Nitrate Negative (NEGATIVE) 08/02/18 23:07 Urine Bilirubin Negative (NEGATIVE) 08/02/18 23:07 Urine Urobilinogen Normal mg/dL (0.2-1.0) 08/02/18 23:07 Ur Leukocyte Esterase Neg Bahman/uL (Negative) 08/02/18 23:07 Urine WBC (Auto) 1 /hpf (0-5) 08/02/18 23:07 Urine RBC (Auto) 6 /hpf (0-3) H 08/02/18 23:07 Urine Bacteria Occ (<OCC) H 08/02/18 23:07 - Hospital Course Hospital Course: On admission: Patient is a 83 year old male with past medical history of Dementia, Alzheimer's Disease, Parkinson's disease, HTN, DM, CAD status post stent, Systolic CHF who presented to the emergency department for shortness of breath. Patient is a poor historian. No family is at the bedside. Per EMR, patients grandson called EMS for shortness of breath since Tuesday. Per the grandson, patient hasn't taken any medications in 3 months. History limited due to patient's current state. Patient currently resting comfortably on bipap. ROS not obtained. He was admitted to telemetry. Hospital course: CXR on admission showed pulmonary vascular congestion. He received Lasix 80 mg IVP in the ED, responded well, and was continued on Lasix 20 mg IVP daily. EKG showed NSR at 84. [place]roponin [place] [address]. His last echocardiogram 05/2018 showed ED 30-35%, severely dilated LV, moderate to severe MR (see full report). Patient was on both lopressor 25mg Q12H and Coreg 6.125mg PO BID, unclear why, and lopressor was held on admission, pending cardiology consult. Dr. Garcia, Cardiology, was consulted. Pt's CXR was much improved the following day. On 08/03, Pt noted to have short episodes of vtach on the tele monitor, asymptomatic. As per Dr. Garcia, these are nonsustained vtach episodes and current management was continued, with an emphasis on monitoring electrolytes. On the night of 08/03, Pt developed sustained vtach, remaining asymptomatic. Pt's magnesium was repleted and he was transferred to the ICU (under the care of Dr. Barker) where he received Amiodarone 150 mg IV bolus and was placed on Bipap. Dr. Mcmullen, EP cardiology, was consulted. As per Dr. Barker, pt converted to baseline rhythm wih HR 70s shortly. He was downgraded to telemetry the following day. As per EP cardio: "Mr. Ruggiero developed a paroxysmal irregular broad complex tachycardia suggestive of atrial fibrillation with a rapid ventricular response followed by sinus rhythm and appropriate bi-ventricular pacing. The device seemingly has normal pace and sense function; I would interrogate to ascertain generator status and stored historical arrhythmias." Family was contacted, and they are unsure as to the make of the AICD, nor do they have a device information card. Multiple attempts were made to ascertain the type of device he has were unsuccessful. As per cardio, pt is not a candidate for exterminator anticoagulation due to dementia. Current management was continued. Cardiology performed cardiac catheterization on 08/07 for evaluation of CAD: well tolerated, coronaries were normal, EF is 20-25%, EDP is 12. Medical management was recommended for nonischemic cardiomyopathy. On 08/09, pt developed a blanching, nonpainful, erythematous rash to the bilateral axillary region and inguinal fold region. Pt has been afebrile during hospital stay, and remained afebrile during this time. Pt was started on Lotrisone cream to the affected area, with gradual improvement of redness in the subsequent days. Pt's hx of HTN was managed with Norvasc 10 mg PO daily, and Lisinopril 10 mg PO daily, Coreg 6.25 mg PO BID on admission. Pt's hx of CAD was managed with ASA 81 mg PO. Amiodarone 200 mg PO daily. Pt's hx of BPH was managed with home flomax and proscar. Pt's DM2 was managed with ISS low. He presented with a right lateral ankle ulcer. Podiatry, Dr. Frey, was consulted, and the wound was treated (bactroban, allevyn pad) by podiatry during his admission. Pt had a right ankle x-ray ordered by podiatry, which showed No acute fracture, subluxation or dislocation. Limited degenerative joint disease subtalar joint as well as incidentally at the midfoot joints diffusely. Pt's Parkinson's disease was managed with his home medications. On 08/10, pt was scheduled for discharge to home (family refused multiple attempts to discharge to LTAC or [facility] due to personal reasons), but his family was unable to be contacted for transport and discharge was planned for the following day. Pt will be discharged home with bactraban cream and lotrisone cream prescriptions, as well as plans for home health aid/visiting nurse. This is a summary of the hospital course, please see chart for full details. Discharge Exam - Head Exam Head Exam: NORMAL INSPECTION - Eye Exam Eye Exam: EOMI, Normal appearance Additional comments: (+) intense eye contact during times of agitation with bulging eyes and eyelid r etraction - ENT Exam ENT Exam: Mucous Membranes Moist - Neck Exam Neck exam: Normal Inspection - Respiratory Exam Respiratory Exam: Decreased Breath Sounds (at the bases bilaterally), NORMAL BREATHING PATTERN. absent: Rales, Rhonchi, Wheezes, Respiratory Distress - Cardiovascular Exam Cardiovascular Exam: REGULAR RHYTHM, +S1, +S2 Additional comments: (+) left upper chest wall PPM - GI/Abdominal Exam GI & Abdominal Exam: Soft. absent: Distended, Firm, Guarding, Rebound, Rigid, Tenderness - Extremities Exam Extremities exam: normal inspection, pedal pulses present Additional comments: (-) lower extremity edema (-) calf tenderness (+) bilateral upper extremity resting tremors - Neurological Exam Neurological exam: Alert - Psychiatric Exam Psychiatric exam: Normal Mood - Skin Skin Exam: Dry, Normal Color, Warm Additional comments: (+) right lateral malleous ulcer with dressing; c/d/i; no evidence of bleeding (+) blanching areas of erythema to the bilateral axillas and bilateral inguinal folds are improved; nontender, no abrasions; (+) warm to touch, (-) signs of excoriation or bleeding Discharge Plan - Discharge Medications Prescriptions: Clotrimazole/Betamethasone [Lotrisone] 1 applic TOP BID #45 g Mupirocin 2% Ointment [Bactroban Ointment] 1 applic TOP TID #1 tube - Follow Up Plan Condition: IMPROVED Disposition: HOME/ ROUTINE Instructions: Heart Healthy Diet, Clotrimazole (Topical), Heart Failure, Adult (DC), Shortness of Breath (Dyspnea) (DC), Mupirocin Additional Instructions: Patient is medically stable and safe for discharge home. SW/CM will arrange home health aid of visiting nurse to assist family in managing the pt. Patient's family is insisting on taking the patient home, and refuses multiple attempts by CM/SW to discharge pt to [facility]. Patient should continue taking his home medications as originally prescribed: Amdiodarone, Amlodipine, Aspirin, Quetiapine, Sucralfate, Tamsulosin, Klonopin, Lipitor, Insulin, Finasteride, Carvedilol, Pramiprexole, Carbidopa/Levodopa. Patient should stop taking Metoprolol, Clonidine patch. In addition to above medications, family/home health aid should apply Lotrisone cream to affected areas of redness twice a day for 2 weeks and Bactraban to ulcer three times a day for 2 weeks. Patient should follow up with PMD, or Dr. Lopez, in 1 week. 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 Garcia, in one week. If symptoms worsen or patient develops fever unresponsive to over the counter fever medications, please bring the patient to the nearest emergency department for evaluation. Instructions explained to the family, who understand and agree with discharge plan. Referrals: Breezy Garcia MD [Staff Provider] - Eber Lopez Jr., MD [Medical Doctor] -
--- NOTE | 2018-08-13 23:36 | CARDCATH ---
PROCEDURE DATE: 08/07/2018 PROCEDURES: 1. Left heart catheterization. 2. Coronary angiogram. REFERRING PHYSICIAN: Eber Lopez MD PERFORMING PHYSICIAN: Breezy Garcia MD CLINICAL INDICATIONS: 1. Chest pain. 2. Dyspnea. 3. Hypertension. 4. Coronary artery disease. 5. Chronic systolic heart failure. 6. History of AICD placement. DESCRIPTION OF PROCEDURE: After informed consent, the patient was prepped and draped in the usual sterile fashion. Lidocaine 2% was given in the right leg for local anesthesia. Using micropuncture technique, a 6-Zambian sheath was introduced into right radial artery. A JR4 6-Zambian diagnostic catheter was engaged into left ventricle across the aortic valve. Contrast injected and left ventricular angiogram was done. LVEDP was measured and the catheter was pulled back across the aortic valve. The gradient across aortic valve was measured. Then, the same catheter was engaged into right coronary artery. Contrast injected and right coronary angiogram was done. Then, the catheter was exchanged to 6-Zambian Agu[place] catheter. The catheter was engaged into left coronary artery. Contrast injected and left coronary angiogram was done. The patient tolerated the procedure well. Postprocedure, Terumo radial band was applied with excellent hemostasis. Radiological interpretation and supervision of the coronary imaging was done. FINDINGS: 1. The patient has a short left main coronary artery, but patent. 2. LAD and diagonal branches are patent. 3. Left circumflex and obtuse marginal branches are patent. 4. Right coronary artery is dominant and patent. 5. LV ejection fraction is approximately 30%. Global hypokinesis. EDP is 20. No gradient across the aortic valve. IMPRESSION: 1. Normal coronaries. 2. Nonischemic cardiomyopathy with ejection fraction of 30%. RECOMMENDATIONS: Medical management. Breezy Garcia MD
== END 2018-08-11 14:26 | disposition home or self-care (01) | DRG 286 ==
LOC: C.ER 22:44 → C.9E 23:46 → C.5S 08-03 00:51 → C.9I 08-03 21:07 → C.6T 08-04 19:12
PROVIDERS: ADMIT Internal Medicine; ATTEND Internal Medicine
PROC: 4A023N7 Measurement of Cardiac Sampling and Pressure, Left Heart, Percutaneous Approach (ICD-10-PCS; principal; 2018-08-07)
PROC: B211YZZ Fluoroscopy of Multiple Coronary Arteries using Other Contrast (ICD-10-PCS; 2018-08-07)
PROC: B215YZZ Fluoroscopy of Left Heart using Other Contrast (ICD-10-PCS; 2018-08-07)
DX: I13.0 Hypertensive heart and chronic kidney disease with heart failure and stage 1 through stage 4 chronic kidney disease, or unspecified chronic kidney disease (principal); I50.23 Acute on chronic systolic (congestive) heart failure; I47.2 Ventricular tachycardia; L97.419 Non-pressure chronic ulcer of right heel and midfoot with unspecified severity; G20 Parkinson's disease; F02.80 Dementia in other diseases classified elsewhere, unspecified severity, without behavioral disturbance, psychotic disturbance, mood disturbance, and anxiety; G30.9 Alzheimer's disease, unspecified; I25.10 Atherosclerotic heart disease of native coronary artery without angina pectoris; Z95.5 Presence of coronary angioplasty implant and graft; Z91.14 Patient's other noncompliance with medication regimen; J44.9 Chronic obstructive pulmonary disease, unspecified; E78.00 Pure hypercholesterolemia, unspecified; N18.9 Chronic kidney disease, unspecified; Z79.4 Long term (current) use of insulin; N40.0 Benign prostatic hyperplasia without lower urinary tract symptoms; Z95.0 Presence of cardiac pacemaker; B37.2 Candidiasis of skin and nail; E11.621 Type 2 diabetes mellitus with foot ulcer

== ENCOUNTER 2018-09-18 02:55 | Inpatient (IN) | payer MEDICARE, MEDICAID ==
[2018-09-18 02:55] VITALS: BMI 27.1
[2018-09-18] MEDS ORDERED: Albuterol-Ipratrop 3 mg / 0.5 (3 ml) UD INH STA (03:19)
[2018-09-18 03:30] LABS: ABG ALLEN TEST POS; ARTERIAL BLOOD GAS HCO3 20.6 mmol/L (21-28); ARTERIAL BLOOD GAS O2 SAT 100.6 % (95-98); ARTERIAL BLOOD GAS PCO2 30 mm/Hg (35-45); ARTERIAL BLOOD GAS PH 7.39 (7.35-7.45); ARTERIAL BLOOD GAS PO2 374 mm/Hg (80-100); ARTERIAL BLOOD GAS TCO2 19.1 mmol/L (22-28)
[2018-09-18] MEDS ORDERED: Labetalol 5mg/ml (4ml) ONE ×2 (03:31→05:42)
--- NOTE | 2018-09-18 03:35 | C.PDOC ---
History Of Present Illness 83 year old male presents to the ED via [facility] for shortness of breath. Patient was recently diagnosed with pneumonia. Denies fever, chills, nausea, vomiting, chest pain, cough. Chief Complaint (Nursing): Shortness Of Breath History Per: Patient, EMS History/Exam Limitations: no limitations Onset/Duration Of Symptoms: Days Current Symptoms Are (Timing): Still Present Initiating Event: Upper Respiratory Illness Reports Recently: Hospitalized Past Medical History Reviewed: Historical Data, Nursing Documentation, Vital Signs Vital Signs: Last Vital Signs Temp 99.2 F 09/18/18 03:13 Pulse 90 09/18/18 03:04 Resp 36 H 09/18/18 03:04 BP 213/98 H 09/18/18 03:04 Pulse Ox 98 09/18/18 03:04 - Medical History PMH: Alzheimer's Disease, Arthritis, Asthma, CAD, CHF, Dementia, Diabetes, HTN, Hypercholesterolemia, Hyperlipidemia, Parkinson's Disease, Chronic Kidney Disease Denies: HIV, Seizures, Sexually Transmitted Disease Surgical History: Coronary Stent, Pacemaker - [facility] Procedures FLUOROSCOPY OF LEFT HEART USING OTHER CONTRAST (08/02/18) FLUOROSCOPY OF MULTIPLE CORONARY ARTERIES USING OTH CONTRAST (08/02/18) MEASURE OF CARDIAC SAMPL & PRESSURE, L HEART, PERC APPROACH (08/02/18) TETANUS TOXOID ADMINIST (10/01/13) TRANSFUSE NONAUT RED BLOOD CELLS IN PERIPH VEIN, PERC (03/20/17) Family History: States: No Known Family Hx - Social History Hx Tobacco Use: No Hx Alcohol Use: No Hx Substance Use: No - Immunization History Hx Tetanus Toxoid Vaccination: No Hx Influenza Vaccination: Yes Hx Pneumococcal Vaccination: No Review Of Systems Except As Marked, All Systems Reviewed And Found Negative. Constitutional: Negative for: Fever, Chills Cardiovascular: Negative for: Chest Pain Respiratory: Positive for: Shortness of Breath. Negative for: Cough Gastrointestinal: Negative for: Nausea, Vomiting Physical Exam - Physical Exam Appears: Non-toxic Skin: Warm, Dry Head: Normacephalic Eye(s): bilateral: Normal Inspection Nose: Normal Oral Mucosa: Dry Neck: Supple Chest: Symmetrical Cardiovascular: Rhythm Regular Respiratory: Decreased Breath Sounds (B/L), Rhonchi, Other (dyspneic) Extremity: No Pedal Edema Neurological/Psych: Other (nonverbal, no focal deficits) ED Course And Treatment - Laboratory Results Result Diagrams: 09/18/18 03:36 09/18/18 03:36 ECG: Interpreted By Me, Viewed By Me ECG Rhythm: Sinus Rhythm ECG Interpretation: No Acute Changes, Abnormal Interpretation Of ECG: Sinus rhythym with aberrant conductio, RBBB , no significant change from tracings of 08/02/18 Rate From EC O2 Sat by Pulse Oximetry: 98 Pulse Ox Interpretation: Normal - Radiology CXR: Interpreted by Me, Viewed By Me CXR Interpretation: Yes: Cardiomegaly, Other (pulmonary congestion?CHF) - Other Rad CXR X-Ray: Viewed By Me, Read By Radiologist Interpretation: Chest, single view. Indication:Fever, shortnes of breath. Comparison: 08/03/2018. Findings: The cardiac silhouette is moderately enlarged.Atherosclerotic, tortuous calcified aorta.There is moderate central pu lmonary venous congestion.There is bilateral peribronchial interstitial thickening suggestive of bronchitis. Mild bilateral pleural effusions with passive atelectatic airspace disease of the lower lobes. AICD is in good position.There are changes of degenerative joint disease. Impression: Interst itial pulmonary edema. Increased. . Electronically signed on Sep 18, 2018 4:20:38 AM EST by: Ladi Dodge M.D., Certified by ABR, MSK, Neuroradiology. Medical Decision Making Medical Decision Making: Plan - Bloodwork - EKG - CXR - UA - Lasix 20mg IVP - Trandate 20mg IV - Neb Treatment Disposition Discussed With Dr.: Dmitriy Lora Doctor Will See Patient In The: Hospital Counseled Patient/Family Regarding: Diagnosis - Disposition Disposition: HOSPITALIZED Disposition Time: 05:56 Condition: STABLE Forms: [facility] (Estonian) - Clinical Impression Clinical Impression: Acute CHF (congestive heart failure) - Scribe Statement The provider has reviewed the documentation as recorded by the Scribe Ashley Garza All medical record entries made by the Scribe were at my direction and personally dictated by me. I have reviewed the chart and agree that the record accurately reflects my personal performance of the history, physical exam, medical decision making, and the department course for this patient. I have also personally directed, reviewed, and agree with the discharge instructions and disposition.
[2018-09-18] MEDS ORDERED: Labetalol 5 mg/ml Inj 20ML IV STA (03:36)
[2018-09-18 03:41] LABS: BASO % 0.3 % (0.0-2.0); EOS % 0.1 % (0.0-4.0); HEMOGLOBIN 10.6 g/dL (12.0-18.0); LYMPH # 0.5 K/uL (1.0-4.3); LYMPH % 4.9 % (20.0-40.0); MEAN CELL VOLUME 82.5 fL (80.0-94.0); MEAN CORPUSCULAR HEMOGLOBIN 26.8 pg (27.0-31.0); MEAN CORPUSCULAR HGB CONC 32.5 g/dL (33.0-37.0); MEAN PLATELET VOLUME 8.8 fL (7.2-11.7); MONO # 0.7 K/uL (0.0-0.8); MONO % 6.7 % (0.0-10.0); NEUT # 9.3 K/uL (1.8-7.0); NRBC % 0.2 % (0.0-2.0); PLATELET COUNT 268 K/uL (130-400); RBC 3.95 Mil/uL (4.40-5.90); RED CELL DISTRIBUTION WIDTH 15.6 % (11.5-14.5); WHITE BLOOD COUNT 10.5 K/uL (4.8-10.8)
[2018-09-18 03:59] LABS: INR 1.1; PROTHROMBIN TIME 11.6 SECONDS (9.7-12.2)
[2018-09-18 04:01] LABS: ALB/GLOB RATIO 1.1 (1.0-2.1); ALBUMIN 3.5 g/dL (3.5-5.0); ALT/SGPT 65 U/L (21-72); AST/SGOT 61 U/L (17-59); BLOOD UREA NITROGEN 19 mg/dL (9-20); CALCIUM 8.6 mg/dl (8.6-10.4); GFR NON-AFRICAN AMERICAN > 60
[2018-09-18] MEDS ORDERED: Iodixanol 320 mg/ml 150 ml Bottle IV ONE (04:27)
[2018-09-18] MEDS ORDERED: Labetalol 25mg/5ml Syringe IVP STA (05:30)
[2018-09-18] MEDS ORDERED: Nitroglycerin 2% Ointment Foilpak UD TOP STA (06:11)
[2018-09-18 06:13] LABS: BASOPHIL 1 % (0-2); LYMPHOCYTE 1 % (20-40); MONOCYTE 8 % (0-10); NEUTROPHIL 90 % (50-75); PLATELET ESTIMATE NORMAL (NORMAL); TOTAL CELLS COUNTED 100
[2018-09-18] MEDS ORDERED: Nitroglycerin 2% Ointment Foilpak UD TOP ONE (06:45)
[2018-09-18 07:17] LABS: URINE BILIRUBIN NEGATIVE (NEGATIVE); URINE BLOOD NEGATIVE (NEGATIVE); URINE CLARITY Clear (Clear); URINE COLOR Straw (YELLOW); URINE GLUCOSE (UA) NORMAL (Normal); URINE LEUKOCYTE ESTERASE NEG Leu/uL (Negative); URINE PROTEIN NEGATIVE (NEGATIVE); URINE UROBILINOGEN NORMAL mg/dL (0.2-1.0)
--- NOTE | 2018-09-18 09:16 | RAD ---
Date of service: 09/18/2018 HISTORY: Shortness of breath/fever COMPARISON: No prior. FINDINGS: LUNGS: Moderate to severe venous congestion. Biapical pleural thickening with upper lobe granulomatous changes. Right hilar prominence. Patchy consolidative opacities in the lower lung zones bilaterally. Small pleural effusions. PLEURA: As above. CARDIOVASCULAR: Aortic atherosclerotic calcification present. Enlarged ectatic aorta. Cardiomegaly. Left-sided pacemaker. OSSEOUS STRUCTURES: Degenerative changes in the spine. VISUALIZED UPPER ABDOMEN: Normal. OTHER FINDINGS: None. IMPRESSION: Moderate to severe venous congestion. Biapical pleural thickening with upper lobe granulomatous changes. Right hilar prominence. Patchy consolidative opacities in the lower lung zones bilaterally. Small pleural effusions.
[2018-09-18] MEDS: (Novolin R) Insulin Human Regular 100 units/ml vial SC SCH ×4 (09:27→21:49)
--- NOTE | 2018-09-18 13:40 | CT ---
Date of service: 09/18/2018 PROCEDURE: CT Chest with contrast (Pulmonary Angiogram) HISTORY: SOB/ elevated D-dimmer COMPARISON: None available. TECHNIQUE: Axial computed tomography images were obtained of the chest in the pulmonary arterial phase of enhancement. Coronal and sagittal reformatted images were created and reviewed. Intravenous contrast dose: Radiation dose: Total exam DLP = 670.96 mGy-cm. This CT exam was performed using one or more of the following dose reduction techniques: Automated exposure control, adjustment of the mA and/or kV according to patient size, and/or use of iterative reconstruction technique. FINDINGS: PULMONARY ARTERIES: Unremarkable. No pulmonary embolism. AORTA: No acute findings. No thoracic aortic aneurysm. No aortic atherosclerotic calcification or mural plaque present. LUNGS: Unremarkable. No nodule, mass or pulmonary consolidation. PLEURAL SPACES: Bilateral pleural effusions with compressive atelectasis at the lung bases consistent with CHF. HEART: Unremarkable. No cardiomegaly. No significant pericardial effusion. LYMPH NODES: No lymphadenopathy. BONES, CHEST WALL: Unremarkable. No fracture or destructive lesion OTHER FINDINGS: Pacemaker leads in place. IMPRESSION: Bilateral pleural effusions with compressive atelectasis at the lung bases consistent with CHF. No pulmonary embolus.
[2018-09-18 15:58] LABS: CK-MB 1.02 ng/mL (0.0-3.38); TROPONIN I 0.012 ng/mL (0.00-0.120)
[2018-09-18 20:37] LABS: CK-MB 0.81 ng/mL (0.0-3.38); TROPONIN I 0.017 ng/mL (0.00-0.120)
[2018-09-18] MEDS: Insulin Detemir 100 units/ml Vial (Levemir) SC SCH (21:48)
--- NOTE | 2018-09-18 23:17 | CP.PCM.HP ---
Past Patient History - Infectious Disease Hx of Infectious Diseases: None - Past Medical History & Family History Past Medical History?: Yes - Past Social History Smoking Status: Never Smoked - CARDIAC Hx Congestive Heart Failure: Yes Hx Hypercholesterolemia: Yes Hx Hypertension: Yes Hx Pacemaker: Yes - PULMONARY Hx Asthma: Yes - NEUROLOGICAL Hx Alzheimer's Disease: Yes Hx Dementia: Yes Hx Parkinson's Disease: Yes Hx Seizures: No - HEENT Hx HEENT Problems: No - RENAL Hx Chronic Kidney Disease: Yes - ENDOCRINE/METABOLIC Hx Diabetes Mellitus Type 2: Yes - HEMATOLOGICAL/ONCOLOGICAL Hx Human Immunodeficiency Virus (HIV): No - INTEGUMENTARY Hx Dermatological Problems: No - MUSCULOSKELETAL/RHEUMATOLOGICAL Hx Arthritis: Yes Hx Falls: Yes - GASTROINTESTINAL Hx Gastrointestinal Disorders: No - GENITOURINARY/GYNECOLOGICAL Hx Sexually Transmitted Disorders: No - PSYCHIATRIC Hx Substance Use: No - SURGICAL HISTORY Hx Coronary Stent: Yes - ANESTHESIA Hx Anesthesia: Yes Hx Anesthesia Reactions: No Meds Allergies/Adverse Reactions: Allergies Allergy/AdvReac Type Severity Reaction Status Date / Time No Known Allergies Allergy Verified 09/18/18 03:11 Results - Vital Signs Recent Vital Signs: Last Vital Signs Temp 98.9 F 09/18/18 19:37 Pulse 71 09/18/18 16:30 Resp 18 09/18/18 15:20 BP 176/69 H 09/18/18 15:20 Pulse Ox 96 09/18/18 15:20 - Labs Result Diagrams: 09/18/18 03:36 09/18/18 03:36 Labs: Laboratory Results - last 24 hr 09/18/18 09/18/18 09/18/18 03:15 03:20 03:36 WBC 10.5 RBC 3.95 L Hgb 10.6 L Hct 32.6 L MCV 82.5 MCH 26.8 L MCHC 32.5 L RDW 15.6 H Plt Count 268 D MPV 8.8 Neut % (Auto) 88.0 H Lymph % (Auto) 4.9 L Snyder % (Auto) 6.7 Eos % (Auto) 0.1 Baso % (Auto) 0.3 Neut # (Auto) 9.3 H Lymph # (Auto) 0.5 L Snyder # (Auto) 0.7 Eos # (Auto) 0.0 Baso # (Auto) 0.0 Neutrophils % (Manual) 90 H Lymphocytes % (Manual) 1 L Monocytes % (Manual) 8 Basophils % (Manual) 1 Platelet Estimate Normal PT INR APTT D-Dimer, Quantitative Puncture Site Lr pCO2 30 L pO2 374 H HCO3 20.6 L ABG pH 7.39 ABG Total CO2 19.1 L ABG O2 Saturation 100.6 H ABG Base Excess -5.6 L Easton Test Pos ABG Potassium 3.2 L A-a O2 Difference 302.0 Respiratory Index 0.8 Sodium 143.0 Chloride 117.0 H Glucose 228 H Lactate 1.0 FiO2 100.0 Inspiratory BiPAP 12 Expiratory BiPAP 6 Potassium Carbon Dioxide Anion Gap BUN Creatinine Est GFR ( Amer) Est GFR (Non-Af Amer) POC Glucose (mg/dL) 280 H Random Glucose Calcium Total Bilirubin AST ALT Alkaline Phosphatase Total Creatine Kinase CK-MB (Mass) Troponin I NT-Pro-B Natriuret Pep Total Protein Albumin Globulin Albumin/Globulin Ratio Arterial Blood Potassium 3.2 L Urine Color Urine Clarity Urine pH Ur Specific Watson Urine Protein Urine Glucose (UA) Urine Ketones Urine Blood Urine Nitrate Urine Bilirubin Urine Urobilinogen Ur Leukocyte Esterase Urine WBC (Auto) B-Hydroxybutyrate Influenza Typ A,B (EIA) 09/18/18 09/18/18 09/18/18 03:36 03:36 04:20 WBC RBC Hgb Hct MCV MCH MCHC RDW Plt Count MPV Neut % (Auto) Lymph % (Auto) Snyder % (Auto) Eos % (Auto) Baso % (Auto) Neut # (Auto) Lymph # (Auto) Snyder # (Auto) Eos # (Auto) Baso # (Auto) Neutrophils % (Manual) Lymphocytes % (Manual) Monocytes % (Manual) Basophils % (Manual) Platelet Estimate PT 11.6 INR 1.1 APTT 62 H D-Dimer, Quantitative 410 H Puncture Site pCO2 pO2 HCO3 ABG pH ABG Total CO2 ABG O2 Saturation ABG Base Excess Easton Test ABG Potassium A-a O2 Difference Respiratory Index Sodium 139 Chloride 106 Glucose Lactate FiO2 Inspiratory BiPAP Expiratory BiPAP Potassium 4.7 Carbon Dioxide 23 Anion Gap 14 BUN 19 Creatinine 1.0 Est GFR ( Amer) > 60 Est GFR (Non-Af Amer) > 60 POC Glucose (mg/dL) Random Glucose 261 H Calcium 8.6 Total Bilirubin 1.6 H AST 61 H D ALT 65 Alkaline Phosphatase 138 H D Total Creatine Kinase CK-MB (Mass) Troponin I < 0.0120 NT-Pro-B Natriuret Pep Total Protein 6.8 Albumin 3.5 Globulin 3.3 Albumin/Globulin Ratio 1.1 Arterial Blood Potassium Urine Color Urine Clarity Urine pH Ur Specific Watson Urine Protein Urine Glucose (UA) Urine Ketones Urine Blood Urine Nitrate Urine Bilirubin Urine Urobilinogen Ur Leukocyte Esterase Urine WBC (Auto) B-Hydroxybutyrate 0.08 Influenza Typ A,B (EIA) Negative for flu a/b 09/18/18 09/18/18 09/18/18 04:32 07:01 07:42 WBC RBC Hgb Hct MCV MCH MCHC RDW Plt Count MPV Neut % (Auto) Lymph % (Auto) Snyder % (Auto) Eos % (Auto) Baso % (Auto) Neut # (Auto) Lymph # (Auto) Snyder # (Auto) Eos # (Auto) Baso # (Auto) Neutrophils % (Manual) Lymphocytes % (Manual) Monocytes % (Manual) Basophils % (Manual) Platelet Estimate PT INR APTT D-Dimer, Quantitative Puncture Site pCO2 pO2 HCO3 ABG pH ABG Total CO2 ABG O2 Saturation ABG Base Excess Easton Test ABG Potassium A-a O2 Difference Respiratory Index Sodium Chloride Glucose Lactate FiO2 Inspiratory BiPAP Expiratory BiPAP Potassium Carbon Dioxide Anion Gap BUN Creatinine Est GFR ( Amer) Est GFR (Non-Af Amer) POC Glucose (mg/dL) 242 H Random Glucose Calcium Total Bilirubin AST ALT Alkaline Phosphatase Total Creatine Kinase CK-MB (Mass) Troponin I NT-Pro-B Natriuret Pep 99268 H Total Protein Albumin Globulin Albumin/Globulin Ratio Arterial Blood Potassium Urine Color Straw Urine Clarity Clear Urine pH 5.0 Ur Specific Watson 1.021 Urine Protein Negative Urine Glucose (UA) Normal Urine Ketones Negative Urine Blood Negative Urine Nitrate Negative Urine Bilirubin Negative Urine Urobilinogen Normal Ur Leukocyte Esterase Neg Urine WBC (Auto) 1 B-Hydroxybutyrate Influenza Typ A,B (EIA) 09/18/18 09/18/18 09/18/18 11:05 15:20 16:42 WBC RBC Hgb Hct MCV MCH MCHC RDW Plt Count MPV Neut % (Auto) Lymph % (Auto) Snyder % (Auto) Eos % (Auto) Baso % (Auto) Neut # (Auto) Lymph # (Auto) Snyder # (Auto) Eos # (Auto) Baso # (Auto) Neutrophils % (Manual) Lymphocytes % (Manual) Monocytes % (Manual) Basophils % (Manual) Platelet Estimate PT INR APTT D-Dimer, Quantitative Puncture Site pCO2 pO2 HCO3 ABG pH ABG Total CO2 ABG O2 Saturation ABG Base Excess Easton Test ABG Potassium A-a O2 Difference Respiratory Index Sodium Chloride Glucose Lactate FiO2 Inspiratory BiPAP Expiratory BiPAP Potassium Carbon Dioxide Anion Gap BUN Creatinine Est GFR ( Amer) Est GFR (Non-Af Amer) POC Glucose (mg/dL) 288 H 144 H Random Glucose Calcium Total Bilirubin AST ALT Alkaline Phosphatase Total Creatine Kinase 43 L CK-MB (Mass) 1.02 Troponin I 0.0120 NT-Pro-B Natriuret Pep Total Protein Albumin Globulin Albumin/Globulin Ratio Arterial Blood Potassium Urine Color Urine Clarity Urine pH Ur Specific Watson Urine Protein Urine Glucose (UA) Urine Ketones Urine Blood Urine Nitrate Urine Bilirubin Urine Urobilinogen Ur Leukocyte Esterase Urine WBC (Auto) B-Hydroxybutyrate Influenza Typ A,B (EIA) 09/18/18 09/18/18 19:39 21:16 WBC RBC Hgb Hct MCV MCH MCHC RDW Plt Count MPV Neut % (Auto) Lymph % (Auto) Snyder % (Auto) Eos % (Auto) Baso % (Auto) Neut # (Auto) Lymph # (Auto) Snyder # (Auto) Eos # (Auto) Baso # (Auto) Neutrophils % (Manual) Lymphocytes % (Manual) Monocytes % (Manual) Basophils % (Manual) Platelet Estimate PT INR APTT D-Dimer, Quantitative Puncture Site pCO2 pO2 HCO3 ABG pH ABG Total CO2 ABG O2 Saturation ABG Base Excess Easton Test ABG Potassium A-a O2 Difference Respiratory Index Sodium Chloride Glucose Lactate FiO2 Inspiratory BiPAP Expiratory BiPAP Potassium Carbon Dioxide Anion Gap BUN Creatinine Est GFR ( Amer) Est GFR (Non-Af Amer) POC Glucose (mg/dL) 201 H Random Glucose Calcium Total Bilirubin AST ALT Alkaline Phosphatase Total Creatine Kinase 47 L CK-MB (Mass) 0.81 Troponin I 0.0170 NT-Pro-B Natriuret Pep Total Protein Albumin Globulin Albumin/Globulin Ratio Arterial Blood Potassium Urine Color Urine Clarity Urine pH Ur Specific Watson Urine Protein Urine Glucose (UA) Urine Ketones Urine Blood Urine Nitrate Urine Bilirubin Urine Urobilinogen Ur Leukocyte Esterase Urine WBC (Auto) B-Hydroxybutyrate Influenza Typ A,B (EIA)
[2018-09-18 23:57] LABS: URINE BACTERIA FEW (<OCC); URINE BILIRUBIN NEGATIVE (NEGATIVE); URINE BLOOD 2+ (NEGATIVE); URINE COLOR Yellow (YELLOW); URINE GLUCOSE (UA) NORMAL (Normal); URINE LEUKOCYTE ESTERASE 2+ Leu/uL (Negative); URINE PROTEIN 1+ mg/dL (NEGATIVE); URINE UROBILINOGEN NORMAL mg/dL (0.2-1.0)
[2018-09-18 23:59] LABS: URINE CLARITY Hazy (Clear)
--- NOTE | 2018-09-19 02:02 | CON ---
DATE: 09/18/2018 REASON FOR CONSULTATION: Exacerbation of congestive heart failure. HISTORY OF PRESENT ILLNESS: The patient is an 83-year-old male who was brought in by ALS for shortness of breath. The patient was recently treated for pneumonia and was recently diagnosed with nonischemic cardiomyopathy on a cardiac catheterization performed in 08/[address] Garcia whom I spoke to. The finding of that cardiac catheterization was consistent with nonspecific ischemic cardiomyopathy with ejection fraction of 30%. SOCIAL HISTORY: Nonsmoker. Nondrinker. MEDICATIONS: Amiodarone 200 mg daily, Coreg 6.25 mg twice a day, Crestor 10 mg once a day, aspirin 81 mg once a day, Flomax 0.4 mg once a day, Feosol one tablet twice a day, heparin 5000 units every 8 hours, Lasix 60 mg intravenously daily, Seroquel 25 mg at bedtime, Proscar 5 mg once a day, Zestril 10 mg once a day, Sinemet one tablet twice a day. REVIEW OF SYSTEMS: The patient has static tremors. PHYSICAL EXAMINATION: GENERAL: The patient is an elderly male who does not appear to be in acute distress. VITAL SIGNS: Blood pressure 161/66, heart rate 72, temperature 97.5, respirations 20. HEENT: Normocephalic. CHEST: Bibasal rhonchi and diminished breath sounds over the right base. HEART: S1 and S2 are regular. ABDOMEN: Soft. EXTREMITIES: Trace pedal edema. DIAGNOSTIC DATA: Chest x-ray revealed cardiomegaly, right lower lobe infiltrate and dual-chamber ICD device is noted. The most recent EKG on the [employer] database was from 08/02/2018 which revealed sinus rhythm with fusion complexes, left axis deviation, anteroposterior infarct age-indeterminate, however as mentioned earlier, the patient's coronary anatomy was unremarkable on a cardiac cath performed a month later on 08/2018. The most recent echocardiography study was in 05/2018 which revealed ejection fraction in the range of 30% to 35% with moderate pulmonary hypertension. LABORATORY DATA: Hemoglobin and hematocrit 10.6 and 32.6, white count and platelet count are within normal limits. SMA-7 today is within normal limits except for glucose down at 61. ProBNP is 16,700. INR is , PTT 62. Chest CT scan: Bilateral pleural effusion with compression atelectasis and CHF. No pulmonary embolus. ASSESSMENT: 1. Exacerbation of congestive heart failure. 2. Consider right lower lobe pneumonia. 3. Nonischemic cardiomyopathy, status post implantable cardioverter-defibrillator placement. 4. Mild anemia. 5. Parkinsonism. RECOMMENDATIONS: Continue Zestril 10 mg once a day, Sinemet one tablet t.i.d., Lasix 60 mg intravenously once a day, Crestor 10 mg once a day, aspirin 81 mg once a day, Coreg 6.25 mg once a day, amiodarone 200 mg once a day. Grey Reese MD
--- NOTE | 2018-09-19 04:51 | HP ---
CHIEF COMPLAINT: Shortness of breath for x1 day. HISTORY OF PRESENT ILLNESS: This is an 83-year-old male, well known to me with history of congestive heart failure, status post AICD placement, diabetes, hypertension, hyperlipidemia, ex-smoker, who is compliant with his diet medication. The patient is demented, but he is supported by his family members for activities of daily living, and the patient was recently discharged from [facility] where he was treated for pneumonia and COPD and congestive heart failure. The patient went home, and then, his symptoms recurred. He started having cough, congestion, and shortness of breath, feeling body aches, tiredness, anorexia, malaise, and fatigue. He denies any nausea or vomiting. He denies any polyuria, polydipsia, or polyphagia. Denies any history of hematuria or pyuria. He had nasal congestion. He denies any sneezing, itchy eyes, or itchy nose. There is no history of trauma or fall, loss of consciousness. No head injury. PAST MEDICAL HISTORY: Congestive heart failure, diabetes, hypertension, and hyperlipidemia. SOCIAL HISTORY: Ex-smoker, non-EtOH user. CURRENT MEDICATIONS: At home, the patient is taking Norvasc, Flomax, Carafate, Seroquel, Mirapex, lisinopril, Lipitor, Klonopin, Levemir, Lasix, Proscar, Sinemet, and amiodarone. PHYSICAL EXAMINATION: GENERAL: An elderly male in moderate respiratory distress with low-grade fever. VITAL SIGNS: BP 176/69, pulse 70, respiratory rate 18, and temperature 99.9. SKIN: No rashes. No bruises. No purpura. No petechiae. No ecchymosis. HEENT: Atraumatic, normocephalic. Negative pallor. Negative jaundice. Extraocular movements are intact. NECK: Supple. Positive JVD. LUNGS: Bilateral inspiratory and expiratory rhonchi and rales. Decreased air entry. CARDIOVASCULAR SYSTEM: S1 and S2, plus S3 positive. No heave. No thrill. ABDOMEN: Soft and nontender. Bowel sounds are positive. RECTAL: Enlarged prostate. EXTREMITIES: No clubbing, cyanosis, or edema. ASSESSMENT: 1. Acute exacerbation of congestive heart failure due to dilated cardiomyopathy. 2. Tracheobronchitis. Rule out pneumonia. 3. Diabetes. 4. Dementia. 5. Parkinson disease. PLAN: The patient's CT of the chest showed bilateral pleural effusion and CHF. The patient will be diuresed. Intake, output, daily body weight. Cardiac enzyme x3 have been negative. The patient will be seen by Cardiology. Dmitriy Lora MD
[2018-09-19] MEDS: (Novolin R) Insulin Human Regular 100 units/ml vial SC SCH ×4 (08:49→21:19)
[2018-09-19 11:34] LABS: BASO % 0.3 % (0.0-2.0); EOS % 0.4 % (0.0-4.0); HEMOGLOBIN 9.4 g/dL (12.0-18.0); LYMPH # 0.6 K/uL (1.0-4.3); LYMPH % 8.2 % (20.0-40.0); MEAN CELL VOLUME 80.9 fL (80.0-94.0); MEAN CORPUSCULAR HEMOGLOBIN 27.2 pg (27.0-31.0); MEAN CORPUSCULAR HGB CONC 33.6 g/dL (33.0-37.0); MONO # 0.8 K/uL (0.0-0.8); MONO % 10.3 % (0.0-10.0); NEUT # 6.1 K/uL (1.8-7.0); NEUT % 80.8 % (50.0-75.0); NRBC % 0.1 % (0.0-2.0); PLATELET COUNT 226 K/uL (130-400); RBC 3.46 Mil/uL (4.40-5.90); RED CELL DISTRIBUTION WIDTH 15.7 % (11.5-14.5); WHITE BLOOD COUNT 7.5 K/uL (4.8-10.8)
[2018-09-19 11:53] LABS: ANISOCYTOSIS SLIGHT; LYMPHOCYTE 8 % (20-40); MONOCYTE 9 % (0-10); NEUTROPHIL 83 % (50-75); PLATELET ESTIMATE NORMAL (NORMAL); POIKILOCYTOSIS SLIGHT; TOTAL CELLS COUNTED 100
[2018-09-19 11:54] LABS: HYPOCHROMIC SLIGHT
[2018-09-19 11:57] LABS: TARGET CELLS SLIGHT
[2018-09-19 11:58] LABS: BLOOD UREA NITROGEN 24 mg/dL (9-20); CALCIUM 8.3 mg/dl (8.6-10.4); GFR NON-AFRICAN AMERICAN 52
--- NOTE | 2018-09-19 19:57 | PN ---
DATE: 09/19/2018 SUBJECTIVE: The patient appears comfortable. He denies any chest pain. PHYSICAL EXAMINATION: VITAL SIGNS: Blood pressure 192/77, heart rate 68, temperature 98.7, respiration 20. HEENT: Pale conjunctivae. CHEST: Diffuse bilateral rhonchi. HEART: S1 and S2 regular. ABDOMEN: Soft. EXTREMITIES: Trace leg edema. LABORATORY DATA: Today's SMA-7 is within normal limits except for glucose of 161 and BUN of 24. Today's hemoglobin and hematocrit 9.4 and 28. White count and platelet count are within normal limit. ASSESSMENT: 1. Exacerbation of congestive heart failure. 2. Nonischemic cardiomyopathy. 3. Bilateral pleural effusion and right lower lobe pneumonia. 4. Anemia. 5. Parkinsonism. RECOMMENDATIONS: Continue current IV Rocephin at 1 g daily, Colace 100 mg t.i.d., amiodarone 200 mg daily, Coreg 12.5 mg twice a day, aspirin 81 mg once a day, Lasix 60 mg intravenously daily, subcutaneous heparin 5000 units every 8 hours, Sinemet one tablet t.i.d., Zestril 20 mg once a day. I will reorder EKG for the second time as it has not been performed yet or it is performed and not available in the [employer] database or in the chart. Grey Reese MD
[2018-09-19] MEDS: Insulin Detemir 100 units/ml Vial (Levemir) SC SCH ×2 (21:53→22:00)
--- NOTE | 2018-09-19 23:06 | CP.PCM.PN ---
Subjective - Subjective Subjective: dictated Objective - Vital Signs/Intake and Output Vital Signs (last 24 hours): Temp Pulse Resp BP Pulse Ox 98.4 F 60 20 179/74 H 98 09/19/18 15:00 09/19/18 16:00 09/19/18 15:00 09/19/18 17:22 09/19/18 15:00 Intake and Output: 09/19/18 09/20/18 18:59 06:59 Intake Total 480 Output Total 2600 1200 Balance -2120 -1200 - Medications Medications: Current Medications Acetaminophen (Tylenol 325mg Tab) 650 mg PO Q4 PRN PRN Reason: Fever >100.4 F Last Admin: 09/18/18 18:37 Dose: 650 mg Amiodarone HCl (Cordarone) 200 mg PO DAILY [facility] Last Admin: 09/19/18 10:34 Dose: 200 mg Aspirin (Ecotrin) 81 mg PO DAILY [facility] Last Admin: 09/19/18 10:34 Dose: 81 mg Carbidopa/Levodopa (Sinemet 10/100) 1 tab PO TID [facility] Last Admin: 09/19/18 17:21 Dose: 1 tab Carvedilol (Coreg) 12.5 mg PO BID [facility] Last Admin: 09/19/18 17:22 Dose: 12.5 mg Docusate Sodium (Colace) 100 mg PO TID [facility] Last Admin: 09/19/18 17:22 Dose: 100 mg Ferrous Sulfate (Feosol) 325 mg PO BID [facility] Last Admin: 09/19/18 17:21 Dose: 325 mg Finasteride (Proscar) 5 mg PO DAILY [facility] Last Admin: 09/19/18 10:34 Dose: 5 mg Furosemide (Lasix) 60 mg IVP DAILY [facility] Last Admin: 09/19/18 10:33 Dose: 60 mg Heparin Sodium (Porcine) (Heparin) 5,000 units SC Q8 [facility] Last Admin: 09/19/18 21:54 Dose: 5,000 units Ceftriaxone Sodium 1 gm/ (Sodium Chloride) 100 mls @ 200 mls/hr IVPB DAILY [facility]; Protocol Last Admin: 09/19/18 10:33 Dose: 200 mls/hr Influenza Virus Vaccine (Fluzone Quad [id number]) 60 mcg IM .ONCE ONE Stop: 09/20/18 10:01 Insulin Detemir (Levemir) 10 unit SC HS [facility] Last Admin: 09/19/18 21:53 Dose: 10 units Insulin Human Regular (Novolin R) 0 unit SC [facility]; Protocol Last Admin: 09/19/18 21:19 Dose: Not Given Lisinopril (Zestril) 20 mg PO DAILY [facility] Last Admin: 09/19/18 10:34 Dose: 20 mg Pneumococcal Polyvalent Vaccine (Pneumovax 23 Vaccine) 0.5 ml IM .ONCE ONE Stop: 09/20/18 10:01 Quetiapine Fumarate (Seroquel) 25 mg PO [facility] Last Admin: 09/19/18 21:53 Dose: 25 mg Rosuvastatin Calcium (Crestor) 10 mg PO [facility] Last Admin: 09/19/18 21:53 Dose: 10 mg Tamsulosin HCl (Flomax) 0.4 mg PO DAILY [facility] Last Admin: 09/19/18 10:34 Dose: 0.4 mg - Labs Labs: 09/19/18 11:24 09/19/18 11:24 PT 11.6 SECONDS (9.7-12.2) 09/18/18 03:36 INR 1.1 09/18/18 03:36 APTT 62 SECONDS (21-34) H 09/18/18 03:36
--- NOTE | 2018-09-20 00:06 | PN ---
DATE: 09/19/2018 SUBJECTIVE: Bahman is confused. He gets agitated at times. No fever. No chills. No nausea or vomiting. He is refusing medication. PHYSICAL EXAMINATION: VITAL SIGNS: Blood pressure 129/74, pulse 60, respiratory rate 20, and temperature 98.4. LUNGS: Clear. CARDIOVASCULAR SYSTEM: S1, S2, plus S3 positive. ABDOMEN: Soft. ASSESSMENT: 1. Congestive heart failure. 2. Urinary tract infection. 3. Type 2 diabetes. 4. Parkinson's. 5. Coronary artery disease. PLAN: Medical management. Monitor the patient. Dmitriy Lora MD
[2018-09-20] MEDS: (Novolin R) Insulin Human Regular 100 units/ml vial SC SCH ×4 (08:22→21:32)
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
[2018-09-20] MEDS ORDERED: Influenza Vaccine 60 MCG/0.5 ML SYR (3 yr & up) IM ONE (10:00)
[2018-09-20] MEDS ORDERED: Pneumococcal 23-Valent Vaccine IM ONE (10:00)
--- NOTE | 2018-09-20 12:23 | CARD ---
APPROVED REPORT Date of service: 09/19/2018 EKG Measurement Heart [id number] <Conclusion> Sinus rhythm with frequent atrial-paced complexes and with occasional premature ventricular complexes Left axis deviation Nonspecific intraventricular block T wave abnormality, consider lateral ischemia Abnormal ECG
--- NOTE | 2018-09-20 16:33 | PN ---
DATE: 09/20/2018 SUBJECTIVE: The patient had tachycardia today. He denies any chest pain. He is asking when he is going home. PHYSICAL EXAMINATION: VITAL SIGNS: Blood pressure 181/72, heart rate 63, temperature 99, respirations 18. HEENT: Pale conjunctivae. CHEST: Basal rhonchi. HEART: S1 and S2 regular. EXTREMITIES: No edema. LABORATORY DATA: Today's blood sugars are 166 and 214 respectively. ASSESSMENT: 1. Nonischemic cardiomyopathy. 2. Nonsustained ventricular tachycardia. 3. Right lower lobe pneumonia, bilateral pleural effusion. 4. Parkinsonism. RECOMMENDATIONS: Continue IV Rocephin at 1 g daily, continue aspirin 81 mg once a day, Coreg 12.5 mg twice a day, subcutaneous heparin 5000 units every 8 hours, Lasix 40 mg intravenously daily, Zestril 20 mg once a day. Obtain BNP as well as magnesium level today. Grey Reese MD
--- NOTE | 2018-09-20 21:15 | CP.PCM.PN ---
Subjective - Subjective Subjective: dictated Objective - Vital Signs/Intake and Output Vital Signs (last 24 hours): Temp Pulse Resp BP Pulse Ox 97.9 F 64 20 166/75 H 98 09/20/18 15:00 09/20/18 15:00 09/20/18 15:00 09/20/18 17:58 09/20/18 15:00 Intake and Output: 09/20/1818 18:59 06:59 Output Total 3200 Balance -3200 - Medications Medications: Current Medications Acetaminophen (Tylenol 325mg Tab) 650 mg PO Q4 PRN PRN Reason: Fever >100.4 F Last Admin: 09/20/18 09:16 Dose: 650 mg Amiodarone HCl (Cordarone) 200 mg PO DAILY [facility] Last Admin: 09/20/18 09:24 Dose: 200 mg Aspirin (Ecotrin) 81 mg PO DAILY [facility] Last Admin: 09/20/18 09:25 Dose: 81 mg Carbidopa/Levodopa (Sinemet 10/100) 1 tab PO TID [facility] Last Admin: 09/20/18 17:58 Dose: 1 tab Carvedilol (Coreg) 12.5 mg PO BID [facility] Last Admin: 09/20/18 17:58 Dose: 12.5 mg Docusate Sodium (Colace) 100 mg PO TID [facility] Last Admin: 09/20/18 17:59 Dose: Not Given Ferrous Sulfate (Feosol) 325 mg PO BID [facility] Last Admin: 09/20/18 17:58 Dose: 325 mg Finasteride (Proscar) 5 mg PO DAILY [facility] Last Admin: 09/20/18 09:25 Dose: 5 mg Furosemide (Lasix) 60 mg IVP DAILY [facility] Last Admin: 09/20/18 09:20 Dose: 60 mg Heparin Sodium (Porcine) (Heparin) 5,000 units SC Q8 [facility] Last Admin: 09/20/18 14:29 Dose: Not Given Hydralazine HCl (Apresoline) 25 mg PO Q8 [facility] Last Admin: 09/20/18 17:59 Dose: 25 mg Ceftriaxone Sodium 1 gm/ (Sodium Chloride) 100 mls @ 200 mls/hr IVPB DAILY [facility]; Protocol Last Admin: 09/20/18 10:47 Dose: 200 mls/hr Insulin Detemir (Levemir) 10 unit SC [facility] Last Admin: 09/19/18 22:00 Dose: Not Given Insulin Human Regular (Novolin R) 0 unit SC ACHS [facility]; Protocol Last Admin: 09/20/18 17:59 Dose: 3 u Lisinopril (Zestril) 20 mg PO DAILY [facility] Last Admin: 09/20/18 10:47 Dose: 20 mg Quetiapine Fumarate (Seroquel) 25 mg PO HS [facility] Last Admin: 09/19/18 22:00 Dose: Not Given Rosuvastatin Calcium (Crestor) 10 mg PO HS [facility] Last Admin: 09/19/18 21:53 Dose: 10 mg Tamsulosin HCl (Flomax) 0.4 mg PO DAILY [facility] Last Admin: 09/20/18 09:25 Dose: 0.4 mg - Labs Labs: 09/19/18 11:24 09/19/18 11:24 PT 11.6 SECONDS (9.7-12.2) 09/18/18 03:36 INR 1.1 09/18/18 03:36 APTT 62 SECONDS (21-34) H 09/18/18 03:36
[2018-09-20] MEDS: Insulin Detemir 100 units/ml Vial (Levemir) SC SCH (21:32)
--- NOTE | 2018-09-21 00:17 | PN ---
DATE: 09/20/2018 SUBJECTIVE: The patient is less short of breath, less cough. He is confused. He is agitated at times when he starts using medications. The patient is afebrile. No hematuria. Urine is clear. PHYSICAL EXAMINATION: VITAL SIGNS: Blood pressure 166/70, pulse 64, respiratory rate 20, and temperature 97.9. LUNGS: Bilateral crepitations. CARDIOVASCULAR SYSTEM: S1 and S2 are regular. ABDOMEN: Soft. ASSESSMENT AND PLAN: Continue diuretics. Intake, output. Discontinue Colace in the morning. Dmitriy Lora MD
[2018-09-21] MEDS: (Novolin R) Insulin Human Regular 100 units/ml vial SC SCH ×4 (08:32→22:05)
[2018-09-21 10:41] LABS: BLOOD UREA NITROGEN 27 mg/dL (9-20); CALCIUM 8.6 mg/dl (8.6-10.4); GFR NON-AFRICAN AMERICAN > 60
[2018-09-21] MEDS: Clotrimazole/Betamethasone Cream(15 gm) TOP SCH (18:31)
--- NOTE | 2018-09-21 19:10 | PN ---
DATE: 09/21/2018 SUBJECTIVE: No reported ventricular tachycardia. The patient is mildly short of breath, but he is eating his lunch on his own. PHYSICAL EXAMINATION VITAL SIGNS: Blood pressure , heart rate 61, temperature 98, respirations 20. HEENT: Pale conjunctivae. CHEST: Absent breath sounds over the bases with bilateral diffuse rhonchi. HEART: S1 and S2 regular. EXTREMITIES: No edema. LABORATORY DATA: Today's SMA-7: Sodium 136, potassium 4.2, chloride 96, CO2 of 29, glucose 284, BUN 27, creatinine 1.1. Magnesium is within normal limit at 1.8. ASSESSMENT: 1. Nonischemic cardiomyopathy. 2. Status post implantable cardioverter-defibrillator placement. 3. Nonsustained ventricular tachycardia. 4. Right lower lobe pneumonia with bilateral pleural effusion. 5. Parkinsonism. RECOMMENDATIONS: Case was discussed with Dr. Dmitriy Lora, the primary care physician as well as the SCOUT. Continue current hydralazine 25 mg every 8 hours, intravenously daily, amiodarone 200 mg orally daily, Coreg 12.5 mg twice a day, aspirin 81 mg once a day, Lasix 60 mg intravenously daily, Sinemet one tablet t.i.d., Zestril 20 mg once a day. Grey Reese MD
--- NOTE | 2018-09-21 21:29 | CP.PCM.PN ---
Subjective - Subjective Subjective: dictated Objective - Vital Signs/Intake and Output Vital Signs (last 24 hours): Temp Pulse Resp BP Pulse Ox 98.2 F 61 20 168/62 H 97 09/21/18 15:30 09/21/18 16:00 09/21/18 15:30 18 18:32 09/21/18 15:30 Intake and Output: 09/21/1818 18:59 06:59 Intake Total 300 Output Total 1500 Balance -1200 - Medications Medications: Current Medications Acetaminophen (Tylenol 325mg Tab) 650 mg PO Q4 PRN PRN Reason: Fever >100.4 F Last Admin: 09/20/18 09:16 Dose: 650 mg Amiodarone HCl (Cordarone) 200 mg PO DAILY [facility] Last Admin: 09/21/18 09:21 Dose: 200 mg Aspirin (Ecotrin) 81 mg PO DAILY [facility] Last Admin: 09/21/18 09:21 Dose: 81 mg Betamethasone/Clotrimazole (Lotrisone) 0 gm TOP BID [facility] Last Admin: 09/21/18 18:31 Dose: 1 applic Carbidopa/Levodopa (Sinemet 10/100) 1 tab PO TID [facility] Last Admin: 09/21/18 18:31 Dose: 1 tab Carvedilol (Coreg) 12.5 mg PO BID [facility] Last Admin: 09/21/18 18:32 Dose: 12.5 mg Docusate Sodium (Colace) 100 mg PO TID [facility] Last Admin: 09/21/18 18:32 Dose: 100 mg Ferrous Sulfate (Feosol) 325 mg PO BID [facility] Last Admin: 09/21/18 18:32 Dose: 325 mg Finasteride (Proscar) 5 mg PO DAILY [facility] Last Admin: 09/21/18 09:25 Dose: 5 mg Furosemide (Lasix) 60 mg IVP DAILY [facility] Last Admin: 09/21/18 09:22 Dose: 60 mg Heparin Sodium (Porcine) (Heparin) 5,000 units SC Q8 [facility] Last Admin: 09/21/18 14:04 Dose: Not Given Hydralazine HCl (Apresoline) 25 mg PO Q8 [facility] Last Admin: 09/21/18 14:05 Dose: Not Given Ceftriaxone Sodium 1 gm/ (Sodium Chloride) 100 mls @ 200 mls/hr IVPB DAILY [facility]; Protocol Last Admin: 09/21/18 14:27 Dose: 200 mls/hr Insulin Detemir (Levemir) 10 unit SC [facility] Last Admin: 09/20/18 21:32 Dose: Not Given Insulin Human Regular (Novolin R) 0 unit SC [facility]; Protocol Last Admin: 09/21/18 16:42 Dose: Not Given Lisinopril (Zestril) 20 mg PO DAILY [facility] Last Admin: 09/21/18 09:25 Dose: 20 mg Quetiapine Fumarate (Seroquel) 25 mg PO [facility] Last Admin: 09/20/18 21:32 Dose: Not Given Rosuvastatin Calcium (Crestor) 10 mg PO [facility] Last Admin: 09/20/18 21:32 Dose: Not Given Tamsulosin HCl (Flomax) 0.4 mg PO DAILY [facility] Last Admin: 09/21/18 09:22 Dose: 0.4 mg - Labs Labs: 09/19/18 11:24 09/21/18 07:10 PT 11.6 SECONDS (9.7-12.2) 09/18/18 03:36 INR 1.1 09/18/18 03:36 APTT 62 SECONDS (21-34) H 09/18/18 03:36
[2018-09-21] MEDS: Insulin Detemir 100 units/ml Vial (Levemir) SC SCH (22:05)
--- NOTE | 2018-09-21 23:33 | PN ---
DATE: 09/21/2018 SUBJECTIVE: The patient, Bahman, is alert. He is confused. He is afebrile, short of breath, less cough, less wheezing. No nausea or vomiting. He refuses oral meds at times. PHYSICAL EXAMINATION: VITAL SIGNS: BP 168/62, pulse 61, respiratory rate 20, temperature 98.2. LUNGS: Bilateral crepitations. CARDIOVASCULAR SYSTEM: S1 and S2, regular. ABDOMEN: Soft, nontender. Bowel sounds are positive. ASSESSMENT: 1. Congestive heart failure exacerbation. 2. Obstructive uropathy, urinary tract infection. 3. Hypertension. 4. Alzheimer's. PLAN: Antibiotics. Add hydralazine. Monitor the patient. Dmitriy Lora MD
[2018-09-22] MEDS: (Novolin R) Insulin Human Regular 100 units/ml vial SC SCH ×4 (08:13→21:24)
[2018-09-22] MEDS: Clotrimazole/Betamethasone Cream(15 gm) TOP SCH ×2 (10:35→17:47)
--- NOTE | 2018-09-22 13:29 | PN ---
DATE: 09/22/2018 SUBJECTIVE: The patient is mildly short of breath. He denies any chest pain. PHYSICAL EXAMINATION: VITAL SIGNS: Blood pressure , heart 59, temperature 98, respirations 18. HEENT: Mild pallor. NECK: No JVD. CHEST: Bilateral rhonchi. HEART: S1 and S2 regular. EXTREMITIES: No edema. ASSESSMENT: 1. Nonischemic cardiomyopathy. 2. Status post implantable cardioverter defibrillator placement. 3. Uncontrolled diabetes mellitus. 4. Nonsustained ventricular tachycardia. 5. Parkinsonism. 6. Right lower lobe pneumonia and bilateral pleural effusion. RECOMMENDATIONS: Continue hydralazine 25 mg every 8 hours, IV Rocephin 1 g daily, amiodarone 200 mg once a day, Coreg 12.5 mg twice a day, Crestor 10 mg once a day, aspirin 81 mg once a day, Lasix 60 mg intravenously once a day, Sinemet one tablet t.i.d., Zestril 20 mg once a day. Grey Reese MD
[2018-09-22] MEDS: Insulin Detemir 100 units/ml Vial (Levemir) SC SCH (21:48)
--- NOTE | 2018-09-23 03:32 | CP.PCM.PN ---
Subjective - Date & Time of Evaluation Date of Evaluation: 09/22/18 - Subjective Subjective: dictated Objective - Vital Signs/Intake and Output Vital Signs (last 24 hours): Temp Pulse Resp BP Pulse Ox 98.0 F 59 L 20 180/71 H 99 09/22/18 23:40 09/22/18 23:40 09/22/18 23:40 09/22/18 23:40 09/22/18 23:40 Intake and Output: 09/22/18 09/23/18 18:59 06:59 Intake Total 400 Output Total 3200 600 Balance -2800 -600 - Medications Medications: Current Medications Acetaminophen (Tylenol 325mg Tab) 650 mg PO Q4 PRN PRN Reason: Fever >100.4 F Last Admin: 09/20/18 09:16 Dose: 650 mg Amiodarone HCl (Cordarone) 200 mg PO DAILY [facility] Last Admin: 09/22/18 10:34 Dose: 200 mg Aspirin (Ecotrin) 81 mg PO DAILY [facility] Last Admin: 09/22/18 10:34 Dose: 81 mg Betamethasone/Clotrimazole (Lotrisone) 0 gm TOP BID [facility] Last Admin: 09/22/18 17:47 Dose: 1 applic Carbidopa/Levodopa (Sinemet 10/100) 1 tab PO TID [facility] Last Admin: 09/22/18 17:46 Dose: 1 tab Carvedilol (Coreg) 12.5 mg PO BID [facility] Last Admin: 09/22/18 17:46 Dose: 12.5 mg Docusate Sodium (Colace) 100 mg PO TID [facility] Last Admin: 09/22/18 17:46 Dose: 100 mg Ferrous Sulfate (Feosol) 325 mg PO BID [facility] Last Admin: 09/22/18 17:46 Dose: 325 mg Finasteride (Proscar) 5 mg PO DAILY [facility] Last Admin: 09/22/18 10:33 Dose: 5 mg Furosemide (Lasix) 60 mg IVP DAILY [facility] Last Admin: 09/22/18 10:34 Dose: 60 mg Hydralazine HCl (Apresoline) 25 mg PO Q8 [facility] Last Admin: 09/22/18 23:09 Dose: Not Given Ceftriaxone Sodium 1 gm/ (Sodium Chloride) 100 mls @ 200 mls/hr IVPB DAILY [facility]; Protocol Last Admin: 09/22/18 10:33 Dose: 200 mls/hr Insulin Detemir (Levemir) 10 unit SC [facility] Last Admin: 09/22/18 21:48 Dose: 10 units Insulin Human Regular (Novolin R) 0 unit SC [facility]; Protocol Last Admin: 09/22/18 21:24 Dose: Not Given Lisinopril (Zestril) 20 mg PO DAILY [facility] Last Admin: 09/22/18 10:34 Dose: 20 mg Quetiapine Fumarate (Seroquel) 25 mg PO [facility] Last Admin: 09/22/18 23:09 Dose: Not Given Rosuvastatin Calcium (Crestor) 10 mg PO [facility] Last Admin: 09/22/18 23:08 Dose: Not Given Tamsulosin HCl (Flomax) 0.4 mg PO DAILY [facility] Last Admin: 09/22/18 10:33 Dose: 0.4 mg - Labs Labs: 09/19/18 11:24 09/21/18 07:10 PT 11.6 SECONDS (9.7-12.2) 09/18/18 03:36 INR 1.1 09/18/18 03:36 APTT 62 SECONDS (21-34) H 09/18/18 03:36
[2018-09-23] MEDS: (Novolin R) Insulin Human Regular 100 units/ml vial SC SCH ×4 (08:22→22:27)
[2018-09-23] MEDS: Clotrimazole/Betamethasone Cream(15 gm) TOP SCH ×2 (09:55→17:42)
--- NOTE | 2018-09-23 15:57 | PN ---
DATE: 09/23/2018 SUBJECTIVE: The patient is confused, appears to be mildly tachypneic. PHYSICAL EXAMINATION: VITAL SIGNS: Blood pressure 172/79, heart rate 60, temperature 98, respirations 20. HEENT: Normocephalic. CHEST: Bilateral rhonchi. HEART: S1 and S2 regular. ABDOMEN: Soft. EXTREMITIES: Static tremors noted. LABORATORY DATA: Today's blood sugars 219 and 152. ASSESSMENT AND PLAN: 1. Nonischemic cardiomyopathy. 2. Parkinsonism. 3. Status post _ICD placement. 4. Uncontrolled diabetes mellitus. 5. Nonsustained ventricular tachycardia. 6. Right lower lobe pneumonia and bilateral pleural effusion. RECOMMENDATIONS: Continue hydralazine 25 mg every 8 hours, IV Rocephin 1 g daily, amiodarone 200 mg once a day, Coreg 12.5 mg once a day, Crestor 10 mg once a day, aspirin 81 mg once a day, Lasix 60 mg intravenously once a day, Sinemet one tablet t.i.d., Zestril 20 mg once a day. Grey Reese MD MTDD
[2018-09-23] MEDS: Insulin Detemir 100 units/ml Vial (Levemir) SC SCH (22:27)
--- NOTE | 2018-09-23 23:32 | CP.PCM.PN ---
Subjective - Subjective Subjective: dictated Objective - Vital Signs/Intake and Output Vital Signs (last 24 hours): Temp Pulse Resp BP Pulse Ox 97.8 F 60 20 155/62 H 99 09/23/18 15:00 09/23/18 20:00 09/23/18 15:00 09/23/18 17:40 09/23/18 15:00 Intake and Output: 09/23/1818 18:59 06:59 Intake Total 829 Output Total 1800 Balance -971 - Medications Medications: Current Medications Acetaminophen (Tylenol 325mg Tab) 650 mg PO Q4 PRN PRN Reason: Fever >100.4 F Last Admin: 09/20/18 09:16 Dose: 650 mg Amiodarone HCl (Cordarone) 200 mg PO DAILY [facility] Last Admin: 09/23/18 09:54 Dose: 200 mg Aspirin (Ecotrin) 81 mg PO DAILY [facility] Last Admin: 09/23/18 09:53 Dose: 81 mg Betamethasone/Clotrimazole (Lotrisone) 0 gm TOP BID [facility] Last Admin: 09/23/18 17:42 Dose: 1 applic Carbidopa/Levodopa (Sinemet 10/100) 1 tab PO TID [facility] Last Admin: 09/23/18 18:00 Dose: Not Given Carvedilol (Coreg) 12.5 mg PO BID [facility] Last Admin: 09/23/18 17:40 Dose: 12.5 mg Docusate Sodium (Colace) 100 mg PO TID [facility] Last Admin: 09/23/18 17:40 Dose: 100 mg Ferrous Sulfate (Feosol) 325 mg PO BID [facility] Last Admin: 09/23/18 17:40 Dose: 325 mg Finasteride (Proscar) 5 mg PO DAILY [facility] Last Admin: 09/23/18 09:54 Dose: 5 mg Furosemide (Lasix) 60 mg IVP DAILY [facility] Hydralazine HCl (Apresoline) 25 mg PO Q8 [facility] Last Admin: 09/23/18 22:28 Dose: Not Given Ceftriaxone Sodium 1 gm/ (Sodium Chloride) 100 mls @ 200 mls/hr IVPB DAILY [facility]; Protocol Last Admin: 09/23/18 10:00 Dose: 200 mls/hr Insulin Detemir (Levemir) 10 unit SC [facility] Last Admin: 09/23/18 22:27 Dose: Not Given Insulin Human Regular (Novolin R) 0 unit SC ACHS [facility]; Protocol Last Admin: 09/23/18 22:27 Dose: Not Given Lisinopril (Zestril) 20 mg PO DAILY [facility] Last Admin: 09/23/18 09:53 Dose: 20 mg Quetiapine Fumarate (Seroquel) 25 mg PO BID [facility] Last Admin: 09/23/18 17:41 Dose: 25 mg Rosuvastatin Calcium (Crestor) 10 mg PO [facility] Last Admin: 09/23/18 22:28 Dose: Not Given Tamsulosin HCl (Flomax) 0.4 mg PO DAILY [facility] Last Admin: 09/23/18 09:54 Dose: 0.4 mg - Labs Labs: 09/19/18 11:24 09/21/18 07:10 PT 11.6 SECONDS (9.7-12.2) 09/18/18 03:36 INR 1.1 09/18/18 03:36 APTT 62 SECONDS (21-34) H 09/18/18 03:36
--- NOTE | 2018-09-24 04:05 | PN ---
DATE: 09/23/2018 SUBJECTIVE: Bahman is more alert, less short of breath. No fever. No chills. No nausea or vomiting. He is tolerating diet. PHYSICAL EXAMINATION: VITAL SIGNS: Reveals BP 155/62, pulse 62, respiratory rate 20, and temperature 97.8. LUNGS: Bilateral basal rales. CARDIOVASCULAR SYSTEM: S1 and S2, regular. ABDOMEN: Soft. ASSESSMENT: Congestive heart failure, atrial fibrillation, poorly controlled diabetes, poorly controlled hypertension, and Alzheimer's. PLAN: Medical management. Monitor the patient. Dmitriy Lora MD
[2018-09-24] MEDS: (Novolin R) Insulin Human Regular 100 units/ml vial SC SCH ×4 (08:11→21:59)
[2018-09-24 09:32] LABS: BASO % 0.3 % (0.0-2.0); EOS # 0.1 K/uL (0.0-0.7); EOS % 1.3 % (0.0-4.0); LYMPH # 1.4 K/uL (1.0-4.3); LYMPH % 21.2 % (20.0-40.0); MEAN CELL VOLUME 80.2 fL (80.0-94.0); MEAN CORPUSCULAR HEMOGLOBIN 26.9 pg (27.0-31.0); MEAN CORPUSCULAR HGB CONC 33.5 g/dL (33.0-37.0); MEAN PLATELET VOLUME 8.3 fL (7.2-11.7); MONO # 0.9 K/uL (0.0-0.8); MONO % 13.5 % (0.0-10.0); NEUT # 4.2 K/uL (1.8-7.0); NEUT % 63.7 % (50.0-75.0); NRBC % 0.1 % (0.0-2.0); RBC 4.27 Mil/uL (4.40-5.90); RED CELL DISTRIBUTION WIDTH 15.9 % (11.5-14.5); WHITE BLOOD COUNT 6.7 K/uL (4.8-10.8)
[2018-09-24 09:39] LABS: HEMOGLOBIN 11.5 g/dL (12.0-18.0)
[2018-09-24 09:49] LABS: BLOOD UREA NITROGEN 24 mg/dL (9-20); CALCIUM 8.5 mg/dl (8.6-10.4); GFR NON-AFRICAN AMERICAN > 60
[2018-09-24] MEDS: Clotrimazole/Betamethasone Cream(15 gm) TOP SCH ×2 (11:00→17:33)
[2018-09-24] MEDS: AMPicillin 1 GM in Sodium Chloride 0.9% 100 ML IVPB SCH ×3 (11:51→22:24)
--- NOTE | 2018-09-24 18:13 | PN ---
DATE: 09/24/2018 SUBJECTIVE: The patient is confused. He denies any chest pain and he does not appear to be in respiratory distress. PHYSICAL EXAMINATION: VITAL SIGNS: Blood pressure 160/61, heart rate 60, temperature 98.1, respirations 20. HEENT: Normocephalic. CHEST: Bilateral rhonchi. HEART: S1 and S2 regular. EXTREMITIES: No edema. LABORATORY DATA: Today's SMA-7; sodium 136, potassium 4.3, chloride 98, CO2 of 31, glucose 200, BUN 24, creatinine 1.1. Today's hemoglobin and hematocrit 11.5 and 34.3. White count and platelet count are within normal limit. ASSESSMENT: 1. Cardiomyopathy, status post implantable cardioverter-defibrillator placement. 2. Nonsustained ventricular tachycardia. 3. Parkinsonism. 4. Uncontrolled diabetes mellitus. 5. Right lower lobe pneumonia and bilateral pleural effusion. RECOMMENDATIONS: Continue current IV ampicillin at 1 g every 6 hours, which was started today. Continue Zestril 20 mg once a day, Lasix 40 mg intravenously once a day, Proscar 5 mg once a day, aspirin 81 mg once a day, Coreg 12.5 mg twice a day, amiodarone 200 mg once a day, hydralazine 25 mg every 8 hours. Grey Reese MD
[2018-09-24] MEDS: Insulin Detemir 100 units/ml Vial (Levemir) SC SCH (22:24)
--- NOTE | 2018-09-24 22:27 | CP.PCM.PN ---
Subjective - Subjective Subjective: dictated Objective - Vital Signs/Intake and Output Vital Signs (last 24 hours): Temp Pulse Resp BP Pulse Ox 97.8 F 60 20 138/68 98 09/24/18 16:00 09/24/18 16:00 09/24/18 16:00 09/24/18 17:33 09/24/18 16:00 Intake and Output: 09/24/1818 18:59 06:59 Intake Total 550 Output Total 700 Balance -150 - Medications Medications: Current Medications Acetaminophen (Tylenol 325mg Tab) 650 mg PO Q4 PRN PRN Reason: Fever >100.4 F Last Admin: 09/20/18 09:16 Dose: 650 mg Amiodarone HCl (Cordarone) 200 mg PO DAILY [facility] Last Admin: 09/24/18 09:29 Dose: 200 mg Aspirin (Ecotrin) 81 mg PO DAILY [facility] Last Admin: 09/24/18 09:26 Dose: 81 mg Betamethasone/Clotrimazole (Lotrisone) 0 gm TOP BID [facility] Last Admin: 09/24/18 17:33 Dose: 1 applic Carbidopa/Levodopa (Sinemet 10/100) 1 tab PO TID [facility] Last Admin: 09/24/18 17:33 Dose: 1 tab Carvedilol (Coreg) 12.5 mg PO BID [facility] Last Admin: 09/24/18 17:33 Dose: 12.5 mg Docusate Sodium (Colace) 100 mg PO TID [facility] Last Admin: 09/24/18 17:33 Dose: 100 mg Ferrous Sulfate (Feosol) 325 mg PO BID [facility] Last Admin: 09/24/18 17:32 Dose: 325 mg Finasteride (Proscar) 5 mg PO DAILY [facility] Last Admin: 09/24/18 09:25 Dose: 5 mg Furosemide (Lasix) 60 mg IVP DAILY [facility] Last Admin: 09/24/18 09:37 Dose: 60 mg Hydralazine HCl (Apresoline) 25 mg PO Q8 [facility] Last Admin: 09/24/18 22:24 Dose: 25 mg Ampicillin 1 gm/ Sodium (Chloride) 100 mls @ 100 mls/hr IVPB Q6H [facility]; Protocol Last Admin: 09/24/18 22:24 Dose: 100 mls/hr Insulin Detemir (Levemir) 10 unit SC HS [facility] Last Admin: 09/24/18 22:24 Dose: 10 units Insulin Human Regular (Novolin R) 0 unit SC ACHS [facility]; Protocol Last Admin: 09/24/18 21:59 Dose: Not Given Lisinopril (Zestril) 20 mg PO DAILY [facility] Last Admin: 09/24/18 09:26 Dose: 20 mg Quetiapine Fumarate (Seroquel) 25 mg PO BID [facility] Last Admin: 09/24/18 17:32 Dose: 25 mg Rosuvastatin Calcium (Crestor) 10 mg PO [facility] Last Admin: 09/24/18 22:24 Dose: 10 mg Tamsulosin HCl (Flomax) 0.4 mg PO DAILY [facility] Last Admin: 09/24/18 09:26 Dose: 0.4 mg - Labs Labs: 09/24/18 09:24 09/24/18 09:24 PT 11.6 SECONDS (9.7-12.2) 09/18/18 03:36 INR 1.1 09/18/18 03:36 APTT 62 SECONDS (21-34) H 09/18/18 03:36
--- NOTE | 2018-09-25 04:48 | PN ---
DATE: 09/25/2018 SUBJECTIVE: Rai Ruggiero is improving. He is less short of breath. No cough. No wheezing. He is more alert. He is on benzodiazepine. No chest pain. PHYSICAL EXAMINATION: GENERAL: Blood pressure 138/56, pulse 60, respiratory rate 18, and temperature 97.6. LUNGS: Bilateral basal crepitation. Clear. No rales. No rhonchi. CARDIOVASCULAR SYSTEM: S1 and S2 plus S3 positive. ABDOMEN: Soft. ASSESSMENT: 1. Congestive heart failure exacerbation. 2. Alzheimer's. 3. Parkinson disease. 4. Hypertension. PLAN: Medical management. Monitor the patient. Dmitriy Lora MD
[2018-09-25] MEDS: AMPicillin 1 GM in Sodium Chloride 0.9% 100 ML IVPB SCH ×4 (05:03→22:18)
[2018-09-25] MEDS: (Novolin R) Insulin Human Regular 100 units/ml vial SC SCH ×4 (07:51→21:44)
[2018-09-25] MEDS: Clotrimazole/Betamethasone Cream(15 gm) TOP SCH ×2 (10:57→18:33)
--- NOTE | 2018-09-25 19:05 | PQF ---
PROVIDER RESPONSE TEXT: Acute on chronic Systolic CHF REVIEWER QUERY TEXT: CHF Acuity and Type Congestive Heart Failure Exacerbation is documented in the Medical Record. Please document the type a nd acuity (includes probable or suspected) Such as: Type: Unable to determine Others Also please document the underlying cause of the CHF (includes probable or suspected) The patient's Clinical Indicators include: ?83 year old male presents to the ED via [facility] for shortness of breath. Patient was recently diagn osed with pneumonia?. Respiratory: Decreased Breath Sounds (B/L), Rhonchi, dyspneic. LUNGS: Bilateral inspiratory and expiratory rhonchi and rales. Decreased air entry. BNP: [id number] ECHO 05/19/18: The Left Ventricle is severely dilated. There is mild concentric left ventricular hypertrophy. The Ejection Fraction is 30-35%. There is global hypokinesis of the left ventricle. Transmitral Doppler flow pattern is Grade II-pseudonormal filling dynamics. The left atrial pressure is mildly elevated. Moderately increased la volume index. There is a pacemaker lead in the right ventricle. The left atrium is moderately dilated. There is mild aortic regurgitation. Mitral regurgitation is mo derate to severe. There is mild to moderate tricuspid regurgitation. Right ventricular systolic pressure is estimated a t 54 mmHg. There is moderate pulmonary hypertension. Cardiac Cath 08/13/18: LV ejection fraction Approximately 30%. Global hypokinesis. Query created by: Spencer Casas on 09/25/2018 3:34 PM Electronically signed by: Dmitriy Lora MD 09/25/2018 7:02 PM
--- NOTE | 2018-09-25 19:07 | PN ---
DATE: 09/25/2018 SUBJECTIVE: The patient is confused. Does not appear to be in any respiratory distress at this time. PHYSICAL EXAMINATION: VITAL SIGNS: Blood pressure /65, heart rate 61, temperature 97.9, respirations 20. HEENT: Normocephalic. CHEST: Right basilar rhonchi. HEART: S1 and S2 regular. EXTREMITIES: No edema. LABORATORY DATA: Today's sugars are 100 and 168 respectively. ASSESSMENT: 1. Nonischemic cardiomyopathy. 2. Nonsustained ventricular tachycardia. 3. Parkinsonism. 4. Uncontrolled diabetes mellitus. 5. Right lower lobe pneumonia and bilateral pleural effusion. RECOMMENDATIONS: Continue current IV ampicillin 1 g every 6 hours. Continue oral hydralazine 25 mg every 8 hours, amiodarone 200 mg orally daily, Coreg 12.5 mg twice a day, Crestor 10 mg once a day, aspirin 81 mg once a day, Seroquel 25 mg twice a day and Zestril 20 mg once a day. Grey Reese MD
[2018-09-25] MEDS: Insulin Detemir 100 units/ml Vial (Levemir) SC SCH (22:14)
--- NOTE | 2018-09-25 22:15 | CP.PCM.PN ---
Subjective - Subjective Subjective: dictated Objective - Vital Signs/Intake and Output Vital Signs (last 24 hours): Temp Pulse Resp BP Pulse Ox 98 F 62 20 160/70 H 97 09/25/18 22:12 09/25/18 22:12 09/25/18 22:12 09/25/18 22:12 09/25/18 22:12 Intake and Output: 09/25/18 09/26/18 18:59 06:59 Intake Total 350 Output Total 600 Balance -250 - Medications Medications: Current Medications Acetaminophen (Tylenol 325mg Tab) 650 mg PO Q4 PRN PRN Reason: Fever >100.4 F Last Admin: 09/20/18 09:16 Dose: 650 mg Amiodarone HCl (Cordarone) 200 mg PO DAILY [facility] Last Admin: 09/25/18 10:53 Dose: 200 mg Aspirin (Ecotrin) 81 mg PO DAILY [facility] Last Admin: 09/25/18 10:53 Dose: 81 mg Betamethasone/Clotrimazole (Lotrisone) 0 gm TOP BID [facility] Last Admin: 09/25/18 18:33 Dose: 1 applic Carbidopa/Levodopa (Sinemet 10/100) 1 tab PO TID [facility] Last Admin: 09/25/18 18:33 Dose: 1 tab Carvedilol (Coreg) 12.5 mg PO BID [facility] Last Admin: 09/25/18 10:53 Dose: 12.5 mg Docusate Sodium (Colace) 100 mg PO TID [facility] Last Admin: 09/25/18 18:32 Dose: 100 mg Ferrous Sulfate (Feosol) 325 mg PO BID [facility] Last Admin: 09/25/18 18:32 Dose: 325 mg Finasteride (Proscar) 5 mg PO DAILY [facility] Last Admin: 09/25/18 10:53 Dose: 5 mg Furosemide (Lasix) 60 mg IVP DAILY [facility] Last Admin: 09/25/18 10:55 Dose: 60 mg Hydralazine HCl (Apresoline) 25 mg PO Q8 [facility] Last Admin: 09/25/18 13:08 Dose: 25 mg Ampicillin 1 gm/ Sodium (Chloride) 100 mls @ 100 mls/hr IVPB Q6H [facility]; Protocol Last Admin: 09/25/18 17:17 Dose: 100 mls/hr Insulin Detemir (Levemir) 10 unit SC HS [facility] Last Admin: 09/24/18 22:24 Dose: 10 units Insulin Human Regular (Novolin R) 0 unit SC ACHS [facility]; Protocol Last Admin: 09/25/18 21:44 Dose: Not Given Lisinopril (Zestril) 20 mg PO DAILY [facility] Last Admin: 09/25/18 10:53 Dose: 20 mg Quetiapine Fumarate (Seroquel) 25 mg PO BID [facility] Last Admin: 09/25/18 18:33 Dose: 25 mg Rosuvastatin Calcium (Crestor) 10 mg PO [facility] Last Admin: 09/24/18 22:24 Dose: 10 mg Tamsulosin HCl (Flomax) 0.4 mg PO DAILY [facility] Last Admin: 09/25/18 10:54 Dose: 0.4 mg - Labs Labs: 09/24/18 09:24 09/24/18 09:24 PT 11.6 SECONDS (9.7-12.2) 09/18/18 03:36 INR 1.1 09/18/18 03:36 APTT 62 SECONDS (21-34) H 09/18/18 03:36
--- NOTE | 2018-09-25 23:53 | PN ---
DATE: 09/25/2018 SUBJECTIVE: Rai Ruggiero is feeling better. He is afebrile, on ampicillin. He is less short of breath, less cough. Disposition is pending. No chest pain. PHYSICAL EXAMINATION: VITAL SIGNS: BP 160/70, pulse 62, respiratory rate 20, temperature 98. LUNGS: Clear. Decreased air entry. Basal rales. CARDIOVASCULAR SYSTEM: S1 and S2 are regular. S3 positive. ABDOMEN: Soft, nontender. Bowel sounds are positive. ASSESSMENT: 1. Acute exacerbation of systolic heart failure, acute on chronic. 2. Uncontrolled hypertension. 3. Urinary tract infection. 4. Alzheimer's. 5. Diabetes. PLAN: Continue antibiotics. Accu-Cheks sliding scale. Lasix. Intake and output. Daily body weight. Monitor the patient. Dmitriy Lora MD
[2018-09-26] MEDS: AMPicillin 1 GM in Sodium Chloride 0.9% 100 ML IVPB SCH ×4 (05:25→22:00)
[2018-09-26] MEDS: (Novolin R) Insulin Human Regular 100 units/ml vial SC SCH ×4 (07:51→21:11)
[2018-09-26] MEDS: Clotrimazole/Betamethasone Cream(15 gm) TOP SCH ×2 (11:00→18:01)
--- NOTE | 2018-09-26 18:36 | PN ---
DATE: 09/26/2018 SUBJECTIVE: The patient does not appear to be in acute distress. He is confused. PHYSICAL EXAMINATION: VITAL SIGNS: Blood pressure 168/70, heart rate 61, temperature 98.1 and respirations 20. HEENT: Normocephalic. CHEST: Bilateral rhonchi. HEART: S1 and S2 regular. EXTREMITIES: Significant static tremors. ASSESSMENT: 1. Nonischemic cardiomyopathy. 2. Nonsustained ventricular tachycardia. 3. Status post implantable cardioverter defibrillator placement. 4. Parkinsonism. 5. Right lower lobe pneumonia with bilateral pleural effusion. RECOMMENDATIONS: Continue current IV ampicillin at 1 gm every 6 hours, amiodarone 200 mg once a day, hydralazine 25 mg every 8 hours, aspirin 81 mg once a day, Crestor at 10 mg once a day, Zestril at 20 mg once a day, and Sinemet 1 tablet t.i.d. Grey Reese MD
[2018-09-26] MEDS: Insulin Detemir 100 units/ml Vial (Levemir) SC SCH (21:12)
[2018-09-27] MEDS: AMPicillin 1 GM in Sodium Chloride 0.9% 100 ML IVPB SCH ×2 (04:30→10:05)
[2018-09-27] MEDS: (Novolin R) Insulin Human Regular 100 units/ml vial SC SCH ×4 (08:17→22:04)
[2018-09-27] MEDS: Clotrimazole/Betamethasone Cream(15 gm) TOP SCH ×2 (09:15→18:44)
--- NOTE | 2018-09-27 16:21 | CARD ---
APPROVED REPORT Date of service: 09/18/2018 EKG Measurement Heart [id number] <Conclusion> Sinus rhythm Left axis deviation Right bundle branch block Inferior infarct, age undetermined Possible Lateral infarct, age undetermined Abnormal ECG
--- NOTE | 2018-09-27 19:16 | PN ---
DATE: 09/27/2018 SUBJECTIVE: The patient is confused, does not appear to be in respiratory distress. PHYSICAL EXAMINATION VITAL SIGNS: Blood pressure 172/73, heart rate 59, temperature 98.1, respirations 20. HEENT: Normocephalic. CHEST: Minimal rhonchi. HEART: S1 and S2 regular. EXTREMITIES: No edema. LABORATORY DATA: Today's blood sugar is 159. ASSESSMENT: 1. Nonischemic cardiomyopathy. 2. Parkinsonism. 3. Nonsustained ventricular tachycardia. 4. Right lower lobe pneumonia and bilateral pleural effusion. RECOMMENDATIONS: Continue hydralazine 25 mg every 8 hours, amiodarone 200 mg once a day, Coreg 12.5 mg twice a day, Crestor 10 mg once a day, aspirin 81 mg once a day, Seroquel 25 mg twice a day and Zestril 20 mg once a day. Grey Reese MD
[2018-09-27] MEDS: Insulin Detemir 100 units/ml Vial (Levemir) SC SCH (21:58)
[2018-09-28] MEDS: (Novolin R) Insulin Human Regular 100 units/ml vial SC SCH ×4 (07:30→21:19)
[2018-09-28] MEDS: Clotrimazole/Betamethasone Cream(15 gm) TOP SCH ×2 (09:16→17:26)
--- NOTE | 2018-09-28 15:11 | CP.PCM.CON ---
History of Present Illness - History of Present Illness History of Present Illness: HPI: 83-year-old male with history of congestive heart failure S/P AICD, diabetes mellitus, hypertension, hyperlipidemia, history of parkinsonism admitted 09/18/18 with cough, congestion and shortness of breath and generalized malaise and anorexia and fatigue. Patient underwent CT CHEST ANGIO which was negative for pulmonary embolism. Patient was found to have bilateral pleural effusions with compressive atelectasis at the lung bases consistent with CHF. 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 Patient was placed on IV ampicillin 1 g every 6 hourly which was discontinued on 09/27/18. Patient still continues to have confusion and malaise and poor appetite. Patient has a Gonzalez catheter in place. No history of trauma or fall or loss of consciousness reported. Infectious disease consultation requested by Dr Reese, Wood Sawyer for evaluation for possible sepsis.Details of history not very clear as patient unable to give any history. 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 PATIENT IS AN EX-SMOKER AND WAS RECENTLY HOSPITALIZED AT [facility] AND TREATED FOR PNEUMONIA, CHF AND EXACERBATION OF COPD. PMH: Alzheimer's Disease, Arthritis, Asthma, CAD, CHF, Dementia, Diabetes, HTN, Hypercholesterolemia, Hyperlipidemia, Parkinson's Disease, Chronic Kidney Disease Denies: HIV, Seizures, Sexually Transmitted Disease Surgical History: Coronary Stent, Pacemaker - [facility] Procedures FLUOROSCOPY OF LEFT HEART USING OTHER CONTRAST (08/02/18) FLUOROSCOPY OF MULTIPLE CORONARY ARTERIES USING OTH CONTRAST (08/02/18) MEASURE OF CARDIAC SAMPL & PRESSURE, L HEART, PERC APPROACH (08/02/18) TETANUS TOXOID ADMINIST (10/01/13) TRANSFUSE NONAUT RED BLOOD CELLS IN PERIPH VEIN, PERC (03/20/17) Family History: States: No Known Family Hx - Social History Hx Tobacco Use: No Hx Alcohol Use: No Hx Substance Use: No - Immunization History Hx Tetanus Toxoid Vaccination: No Hx Influenza Vaccination: Yes Hx Pneumococcal Vaccination: No ALLERGY ;NKA PMH: Alzheimer's Disease, Arthritis, Asthma, CAD, CHF, Dementia, Diabetes, HTN, Hypercholesterolemia, Hyperlipidemia, Parkinson's Disease, Chronic Kidney Disease Denies: HIV, Seizures, Sexually Transmitted Disease Surgical History: Coronary Stent, Pacemaker - [facility] Procedures FLUOROSCOPY OF LEFT HEART USING OTHER CONTRAST (08/02/18) FLUOROSCOPY OF MULTIPLE CORONARY ARTERIES USING OTH CONTRAST (08/02/18) MEASURE OF CARDIAC SAMPL & PRESSURE, L HEART, PERC APPROACH (08/02/18) TETANUS TOXOID ADMINIST (10/01/13) TRANSFUSE NONAUT RED BLOOD CELLS IN PERIPH VEIN, PERC (03/20/17) Family History: States: No Known Family Hx - Social History Hx Tobacco Use: No Hx Alcohol Use: No Hx Substance Use: No - Immunization History Hx Tetanus Toxoid Vaccination: No Hx Influenza Vaccination: Yes Hx Pneumococcal Vaccination: No Review of Systems - Constitutional Constitutional: Fatigue, Malaise - EENT Nose/Mouth/Throat: absent: Mouth Lesions, Sore Throat - Cardiovascular Cardiovascular: absent: Chest Pain - Respiratory Respiratory: Cough, Dyspnea. absent: Hemoptysis - Gastrointestinal Gastrointestinal: Odynophagia (states difficulty swallowing pills.). absent: Abdominal Pain, Diarrhea, Nausea - Genitourinary Genitourinary: Urinary Incontinence (+ve folys) - Integumentary Integumentary: absent: Rash - Neurological Neurological: Tremor. absent: Syncope - Hematologic/Lymphatic Hematologic: absent: Easy Bruising, Lymphadenopathy Past Patient History - Infectious Disease Hx of Infectious Diseases: None - Past Medical History & Family History Past Medical History?: Yes - Past Social History Smoking Status: Never Smoked - CARDIAC Hx Congestive Heart Failure: Yes Hx Hypercholesterolemia: Yes Hx Hypertension: Yes - PULMONARY Hx Asthma: Yes - NEUROLOGICAL Hx Alzheimer's Disease: Yes Hx Dementia: Yes Hx Parkinson's Disease: Yes Hx Seizures: No - HEENT Hx HEENT Problems: No - RENAL Hx Chronic Kidney Disease: Yes - ENDOCRINE/METABOLIC Hx Diabetes Mellitus Type 2: Yes - HEMATOLOGICAL/ONCOLOGICAL Hx Human Immunodeficiency Virus (HIV): No - INTEGUMENTARY Hx Dermatological Problems: No - MUSCULOSKELETAL/RHEUMATOLOGICAL Hx Arthritis: Yes - GASTROINTESTINAL Hx Gastrointestinal Disorders: No - GENITOURINARY/GYNECOLOGICAL Hx Sexually Transmitted Disorders: No - PSYCHIATRIC Hx Substance Use: No - SURGICAL HISTORY Hx Coronary Stent: Yes - ANESTHESIA Hx Anesthesia: Yes Hx Anesthesia Reactions: No Meds Allergies/Adverse Reactions: Allergies Allergy/AdvReac Type Severity Reaction Status Date / Time No Known Allergies Allergy Verified 09/18/18 03:11 - Medications Medications: Current Medications Acetaminophen (Tylenol 325mg Tab) 650 mg PO Q4 PRN PRN Reason: Fever >100.4 F Last Admin: 09/28/18 09:14 Dose: 650 mg Amiodarone HCl (Cordarone) 200 mg PO DAILY [facility] Last Admin: 09/28/18 09:15 Dose: 200 mg Aspirin (Ecotrin) 81 mg PO DAILY [facility] Last Admin: 09/28/18 09:13 Dose: 81 mg Betamethasone/Clotrimazole (Lotrisone) 0 gm TOP BID [facility] Last Admin: 09/28/18 09:16 Dose: 1 applic Carbidopa/Levodopa (Sinemet 10/100) 1 tab PO TID [facility] Last Admin: 09/28/18 13:02 Dose: 1 tab Carvedilol (Coreg) 12.5 mg PO BID [facility] Last Admin: 09/28/18 09:14 Dose: 12.5 mg Docusate Sodium (Colace) 100 mg PO TID [facility] Last Admin: 09/28/18 13:01 Dose: 100 mg Ferrous Sulfate (Feosol) 325 mg PO BID [facility] Last Admin: 09/28/18 09:13 Dose: 325 mg Finasteride (Proscar) 5 mg PO DAILY [facility] Last Admin: 09/28/18 09:15 Dose: 5 mg Furosemide (Lasix) 40 mg IVP DAILY [facility] Last Admin: 09/28/18 09:20 Dose: 40 mg Hydralazine HCl (Apresoline) 25 mg PO Q8 [facility] Last Admin: 09/28/18 13:01 Dose: 25 mg Insulin Detemir (Levemir) 10 unit SC [facility] Last Admin: 09/27/18 21:58 Dose: 10 units Insulin Human Regular (Novolin R) 0 unit SC [facility]; Protocol Last Admin: 09/28/18 12:40 Dose: 1 u Lisinopril (Zestril) 20 mg PO DAILY [facility] Last Admin: 09/28/18 09:15 Dose: 20 mg Quetiapine Fumarate (Seroquel) 25 mg PO BID [facility] Last Admin: 09/28/18 09:14 Dose: 25 mg Rosuvastatin Calcium (Crestor) 10 mg PO HS [facility] Last Admin: 09/27/18 22:28 Dose: Not Given Tamsulosin HCl (Flomax) 0.4 mg PO DAILY [facility] Last Admin: 09/28/18 09:14 Dose: 0.4 mg Physical Exam - Constitutional Appears: No Acute Distress, Confused (at times.), Cachectic, Chronically Ill - Head Exam Head Exam: NORMAL INSPECTION - Eye Exam Eye Exam: EOMI, PERRL - ENT Exam ENT Exam: Mucous Membranes Moist, Normal Oropharynx - Neck Exam Neck exam: Positive for: Normal Inspection. Negative for: Meningismus - Respiratory Exam Respiratory Exam: Decreased Breath Sounds (at bases), NORMAL BREATHING PATTERN - Cardiovascular Exam Cardiovascular Exam: REGULAR RHYTHM, +S1, +S2 - GI/Abdominal Exam GI & Abdominal Exam: Normal Bowel Sounds, Soft. absent: Organomegaly - Extremities Exam Extremities exam: Positive for: normal capillary refill, pedal pulses present. Negative for: calf tenderness, tenderness - Neurological Exam Neurological exam: Alert, CN II-XII Intact - Psychiatric Exam Psychiatric exam: Normal Affect, Normal Mood - Skin Skin Exam: Dry, Normal Color, Warm Results - Vital Signs Recent Vital Signs: Last Vital Signs Temp 98.2 F 09/28/18 04:15 Pulse 66 09/28/18 04:15 Resp 20 09/28/18 04:15 BP 168/78 H 09/28/18 09:20 Pulse Ox 98 09/28/18 04:15 - Labs Result Diagrams: 09/29/18 04:09 09/29/18 04:09 Labs: Laboratory Results - last 24 hr 09/27/18 09/27/18 09/28/18 16:48 21:09 06:24 POC Glucose (mg/dL) 184 H 194 H 149 H 09/28/18 11:20 POC Glucose (mg/dL) 158 H Assessment & Plan (1) Listeria infection Assessment and Plan: PANCULTURE ESR CRP LFTS 2D ECHO R/O SBE CXR CONTINUE IV AMPICILLIN 1GM IVPB Q 6HRLY.09/28/18 FOR NOW. will f/u blood test and cultures to change any rx. Status: Acute (2) Acute on chronic systolic CHF (congestive heart failure) Assessment and Plan: PER CARDIOLOGY. F/U CXR. PROBNP Status: Acute (3) Altered mental status Assessment and Plan: CONSIDER CT HEAD R/O OCCULT ABSCESS/OR CEREBRITIS SEC TO LISTERIA INFECTION. SOURCE OF SEPSIS NOT CLEAR. ON IV ABS Status: Acute (4) CAD (coronary artery disease) Status: Chronic (5) HTN (hypertension) Status: Chronic (6) Parkinson disease Assessment and Plan: +ve INTENTION TREMORS. Status: Chronic (7) AICD (automatic cardioverter/defibrillator) present Assessment and Plan: PT +VE AICD. Status: Acute
--- NOTE | 2018-09-28 16:05 | PN ---
DATE: 09/28/2018 SUBJECTIVE: The patient is confused. He is on one-to-one and he is slightly restless and does not appear to be in respiratory distress. PHYSICAL EXAMINATION: VITAL SIGNS: Blood pressure 168/78, heart rate 66, temperature 98.2, respirations 20. HEENT: Normocephalic. CHEST: Bilateral rhonchi. HEART: S1 and S2 regular. EXTREMITIES: No edema. LABORATORY DATA: Today's blood sugar is 149. Blood culture final report is positive for Listeria monocytogenes. ASSESSMENT: 1. Nonischemic cardiomyopathy. 2. Status post implantable cardioverter defibrillator placement. 3. Positive blood culture for Listeria monocytogenes. 4. Parkinsonism. 5. Altered mental status. RECOMMENDATIONS: Continue on hydralazine 25 mg every 8 hours, Coreg 12.5 mg twice a day, amiodarone 200 mg daily, Lasix 40 mg intravenously daily, Sinemet one tablet t.i.d., Zestril 20 mg once a day, however, we will request Infectious Disease consultation. Grey Reese MD
[2018-09-28] MEDS: AMPicillin 1 GM in Sodium Chloride 0.9% 100 ML IVPB SCH ×2 (17:27→21:30)
[2018-09-28] MEDS: Insulin Detemir 100 units/ml Vial (Levemir) SC SCH (21:31)
[2018-09-29] MEDS: AMPicillin 1 GM in Sodium Chloride 0.9% 100 ML IVPB SCH ×4 (04:28→22:00)
[2018-09-29 04:54] LABS: BASO % 0.3 % (0.0-2.0); EOS # 0.2 K/uL (0.0-0.7); EOS % 3.1 % (0.0-4.0); HEMOGLOBIN 11.4 g/dL (12.0-18.0); LYMPH # 1.6 K/uL (1.0-4.3); LYMPH % 20.4 % (20.0-40.0); MEAN CELL VOLUME 79.6 fL (80.0-94.0); MEAN CORPUSCULAR HEMOGLOBIN 26.5 pg (27.0-31.0); MEAN CORPUSCULAR HGB CONC 33.3 g/dL (33.0-37.0); MEAN PLATELET VOLUME 7.9 fL (7.2-11.7); MONO # 0.9 K/uL (0.0-0.8); MONO % 11.1 % (0.0-10.0); NEUT % 65.1 % (50.0-75.0); RBC 4.29 Mil/uL (4.40-5.90); RED CELL DISTRIBUTION WIDTH 15.8 % (11.5-14.5); WHITE BLOOD COUNT 7.7 K/uL (4.8-10.8)
[2018-09-29 04:55] LABS: ALBUMIN 3.3 g/dL (3.5-5.0); ALT/SGPT 28 U/L (21-72); AST/SGOT 36 U/L (17-59); BILIRUBIN,DIRECT 0.4 mg/dL (0.0-0.4); BLOOD UREA NITROGEN 36 mg/dL (9-20); CALCIUM 8.7 mg/dl (8.6-10.4); GFR NON-AFRICAN AMERICAN 58
[2018-09-29 06:11] LABS: SQUAMOUS EPITHIAL < 1 /hpf (0-5); URINE BACTERIA RARE (<OCC); URINE BILIRUBIN NEGATIVE (NEGATIVE); URINE BLOOD 2+ (NEGATIVE); URINE CLARITY Clear (Clear); URINE COLOR Yellow (YELLOW); URINE GLUCOSE (UA) NORMAL (Normal); URINE LEUKOCYTE ESTERASE 1+ Leu/uL (Negative); URINE PROTEIN NEGATIVE (NEGATIVE); URINE UROBILINOGEN NORMAL mg/dL (0.2-1.0)
--- NOTE | 2018-09-29 09:48 | RAD ---
Date of service: 09/29/2018 HISTORY: PNEUMONIA/CHF COMPARISON: Comparison chest dated 09/18/2018 FINDINGS: LUNGS: Improved pulmonary venous congestive changes. There appears to be some minimal bibasilar atelectasis. Questionable tiny bilateral effusions. PLEURA: As above. No pneumothorax apparent. CARDIOVASCULAR: There is aortic atherosclerotic calcification present. Cardiomegaly. No change multi lead pacemaker/defibrillator OSSEOUS STRUCTURES: No significant abnormalities. VISUALIZED UPPER ABDOMEN: Normal. OTHER FINDINGS: None. IMPRESSION: Improved pulmonary venous congestive changes. There appears to be some minimal bibasilar atelectasis. Questionable tiny bilateral effusions.
[2018-09-29] MEDS: (Novolin R) Insulin Human Regular 100 units/ml vial SC SCH ×3 (10:47→18:11)
[2018-09-29] MEDS: Clotrimazole/Betamethasone Cream(15 gm) TOP SCH ×2 (10:53→18:54)
--- NOTE | 2018-09-29 18:21 | PN ---
DATE: 09/29/2018 SUBJECTIVE: The patient is still confused but less aggressive. He does not appear to be in respiratory difficulty. PHYSICAL EXAMINATION: VITAL SIGNS: Blood pressure 175/57, heart rate 61, temperature 98.2, respirations 20. HEENT: Normocephalic. CHEST: Minimal rhonchi. HEART: S1 and S2, regular. EXTREMITIES: No pedal edema. LABORATORY DATA: Hemoglobin and hematocrit 11.4 and 34.2. White count and platelet count are within normal limits. SMA-7 today is within normal limits except for glucose of 168 and BUN of 36. Today's chest x-ray improved. Pulmonary venous congestion changes. There appears to be minimal basilar atelectasis, questionable bilateral effusion. ASSESSMENT: 1. Nonischemic cardiomyopathy. 2. Bacteremia with Listeria monocytogenes. 3. Altered mental status. 4. Parkinsonism. 5. Status post implantable cardioverter defibrillator placement. RECOMMENDATIONS: Continue IV ampicillin at 1 g every 6 hours which was started today. Continue amiodarone 200 mg daily, hydralazine 25 mg every 8 hours, aspirin 81 mg once a day, Crestor 10 mg once a day, Coreg 12.5 mg twice a day, Lasix 40 mg intravenously once a day, Flomax 0.4 mg daily, Proscar 5 mg once a day, Sinemet 1 tablet t.i.d., Zestril 20 mg once a day. I will follow the echocardiography study performed today. Grey Reese MD
--- NOTE | 2018-09-29 21:50 | CP.PCM.PN ---
Subjective - Date & Time of Evaluation Date of Evaluation: 09/29/18 Time of Evaluation: 21:49 - Subjective Subjective: RESPONSIVE. DENIES GUTIERREZ. REMEMBERS HIS SON TELEPHONE NO. C/O TOO MANY PILLS AND DIFFICUTY SWALLOWING THEM ? DYSPHAGIA. Objective - Vital Signs/Intake and Output Vital Signs (last 24 hours): Temp Pulse Resp BP Pulse Ox 98.2 F 61 20 174/62 H 98 09/29/18 07:30 09/29/18 07:30 09/29/18 07:30 09/29/18 18:44 09/29/18 07:30 - Medications Medications: Current Medications Acetaminophen (Tylenol 325mg Tab) 650 mg PO Q4 PRN PRN Reason: Fever >100.4 F Last Admin: 09/28/18 09:14 Dose: 650 mg Amiodarone HCl (Cordarone) 200 mg PO DAILY [facility] Last Admin: 09/29/18 10:39 Dose: 200 mg Aspirin (Ecotrin) 81 mg PO DAILY [facility] Last Admin: 09/29/18 10:39 Dose: 81 mg Betamethasone/Clotrimazole (Lotrisone) 0 gm TOP BID [facility] Last Admin: 09/29/18 18:54 Dose: 1 applic Carbidopa/Levodopa (Sinemet ) 1 tab PO TID [facility] Last Admin: 09/29/18 18:43 Dose: 1 tab Carvedilol (Coreg) 12.5 mg PO BID [facility] Last Admin: 09/29/18 18:44 Dose: 12.5 mg Docusate Sodium (Colace) 100 mg PO TID [facility] Last Admin: 09/29/18 18:41 Dose: 100 mg Ferrous Sulfate (Feosol) 325 mg PO BID [facility] Last Admin: 09/29/18 18:41 Dose: 325 mg Finasteride (Proscar) 5 mg PO DAILY [facility] Last Admin: 09/29/18 10:43 Dose: 5 mg Furosemide (Lasix) 40 mg IVP DAILY [facility] Last Admin: 09/29/18 10:39 Dose: 40 mg Hydralazine HCl (Apresoline) 50 mg PO Q8 [facility] Ampicillin 1 gm/ Sodium (Chloride) 100 mls @ 100 mls/hr IVPB Q6H [facility]; Protocol Last Admin: 09/29/18 17:15 Dose: 100 mls/hr Insulin Detemir (Levemir) 10 unit SC HS [facility] Last Admin: 09/28/18 21:31 Dose: 10 units Insulin Human Regular (Novolin R) 0 unit SC [facility]; Protocol Last Admin: 09/29/18 18:11 Dose: Not Given Lisinopril (Zestril) 20 mg PO DAILY [facility] Last Admin: 09/29/18 10:38 Dose: 20 mg Quetiapine Fumarate (Seroquel) 25 mg PO BID [facility] Last Admin: 09/29/18 18:52 Dose: 25 mg Rosuvastatin Calcium (Crestor) 10 mg PO [facility] Last Admin: 09/28/18 21:29 Dose: 10 mg Tamsulosin HCl (Flomax) 0.4 mg PO DAILY [facility] Last Admin: 09/29/18 10:39 Dose: 0.4 mg - Labs Labs: 09/29/18 04:09 09/29/18 04:09 PT 11.6 SECONDS (9.7-12.2) 09/18/18 03:36 INR 1.1 09/18/18 03:36 APTT 62 SECONDS (21-34) H 09/18/18 03:36 - Constitutional Appears: No Acute Distress, Cachectic, Chronically Ill - Head Exam Head Exam: NORMAL INSPECTION - Eye Exam Eye Exam: EOMI, Normal appearance, PERRL - ENT Exam ENT Exam: Normal Oropharynx - Neck Exam Neck Exam: Normal Inspection. absent: Meningismus - Respiratory Exam Respiratory Exam: Decreased Breath Sounds, NORMAL BREATHING PATTERN - Cardiovascular Exam Cardiovascular Exam: REGULAR RHYTHM, +S1, +S2 - GI/Abdominal Exam GI & Abdominal Exam: Soft, Normal Bowel Sounds. absent: Tenderness - Neurological Exam Neurological Exam: Alert, Awake, CN II-XII Intact, Reflexes Normal - Psychiatric Exam Psychiatric exam: Normal Affect - Skin Skin Exam: Normal Color, Warm Assessment and Plan (1) Listeria infection Assessment & Plan: CONTINUE IV AMMPICILLIN 1GM IVPB Q 6HRLY 09/28/18 RESTARTED YESTERDAY. F/U 2D ECHO . CXR 09/29/18 BETTER AERATION .SMALL BV/L PLEURAL EFFUSIONS. Status: Acute (2) Acute on chronic systolic CHF (congestive heart failure) Assessment & Plan: 09/29/18 PROBNP 2400. DIURESIS PER CARDIOLOGY. F/U 2D ECHO R/O VEGS Status: Acute (3) Altered mental status Assessment & Plan: MS IMPROVED MOVES ALL EXTREMITIES. +VE TREMORS. Status: Acute (4) CAD (coronary artery disease) Status: Chronic (5) HTN (hypertension) Assessment & Plan: PER PMD /AND CARDIOLOGY Status: Chronic (6) Parkinson disease Assessment & Plan: +VE INTENTION TREMORS. ON SINEMET. Status: Chronic (7) AICD (automatic cardioverter/defibrillator) present Status: Acute (8) Dysphagia Assessment & Plan: CONSIDER SWALLOW EVAL R/O ASPIRATION Status: Acute
[2018-09-30] MEDS: AMPicillin 1 GM in Sodium Chloride 0.9% 100 ML IVPB SCH ×4 (04:24→21:43)
[2018-09-30] MEDS: (Novolin R) Insulin Human Regular 100 units/ml vial SC SCH ×4 (07:53→21:18)
--- NOTE | 2018-09-30 09:38 | CARD ---
APPROVED REPORT Date of service: 09/29/2018 EXAM: LIMITED Two-dimensional and M-mode echocardiogram with Doppler and color Doppler. Other Information Quality : GoodRhythm : INDICATION Infection:Rule out subacute bacterial endocarditis Congestive Heart Failure 2D DIMENSIONS IVSd1.0 (0.7-1.1cm)LVDd6.5 (3.9-5.9cm) PWd1.3 (0.7-1.1cm)LVDs5.3 (2.5-4.0cm) FS (%) 17.2 %LVEF (%)35.1 (>50%) LVEF (Suarez's)47.47 % M-Mode DIMENSIONS IVSd1.15 (0.7-1.1cm)LVDd7.74 (4.0-5.6cm) PWd1.46 (0.7-1.1cm)FS (%) 22 % LVDs6.04 (2.0-3.8cm)LVEF (%)43 (>50%) Mitral Valve E/A ratio0.0 TDI E/Lateral E'0.0E/Medial E'0.0 LEFT VENTRICLE The Left Ventricle is severely dilated. There is mild asymmetric left ventricular hypertrophy. Left ventricle systolic function is moderately impaired. The Ejection Fraction is 35-40%. Regional wall motion abnormalities noted consistent with CAD. No left ventricle thrombus noted on this study. RIGHT VENTRICLE The right ventricle is grossly normal size. The right ventricular systolic function is normal. The pacemaker lead in the right ventricle is thickened and echogenic suggestive of possible thrombus, calcification or vegetatrion. ATRIA The left atrial size seems normal. The right atrium size looks normal. AORTIC VALVE The aortic valve is trileaflet. There is mild aortic regurgitation. There is no aortic valvular stenosis. There is no aortic valvular vegetation. MITRAL VALVE Mitral annular calcification is moderate. There is no evidence of mitral valve prolapse. There is no mitral valve stenosis. Mitral regurgitation is mild to moderate. TRICUSPID VALVE The tricuspid valve is normal. There is mild to moderate tricuspid regurgitation. There is no tricuspid valve prolapse or vegetation. There is no tricuspid valve stenosis. PULMONIC VALVE The pulmonic valve is not well visualized. GREAT VESSELS The aortic root is not well visualized. The IVC was not visualized. PERICARDIAL EFFUSION There is no pericardial effusion. There is no pleural effusion. <Conclusion> Technically limited study. The Left Ventricle is severely dilated. There is mild asymmetric left ventricular hypertrophy. Left ventricle systolic function is moderately impaired. The Ejection Fraction is 35-40%. Regional wall motion abnormalities noted consistent with CAD. The pacemaker lead in the right ventricle is thickened and echogenic suggestive of possible thrombus, calcification or vegetatrion. There is mild aortic regurgitation. Mitral regurgitation is mild to moderate. There is mild to moderate tricuspid regurgitation. No definite valvular vegetation noted.
[2018-09-30] MEDS: Clotrimazole/Betamethasone Cream(15 gm) TOP SCH ×2 (10:16→17:47)
--- NOTE | 2018-09-30 14:39 | CP.PCM.PN ---
Subjective - Date & Time of Evaluation Date of Evaluation: 09/30/18 Time of Evaluation: 14:39 - Subjective Subjective: afebrile comfortable on antibiotics more awake and responsive Objective - Vital Signs/Intake and Output Vital Signs (last 24 hours): Temp Pulse Resp BP Pulse Ox 98.1 F 60 20 170/70 H 99 09/30/18 07:00 09/30/18 07:00 09/30/18 07:00 09/30/18 10:02 09/30/18 07:00 Intake and Output: 09/30/18 09/30/18 06:59 18:59 Output Total 700 Balance -700 - Medications Medications: Current Medications Acetaminophen (Tylenol 325mg Tab) 650 mg PO Q4 PRN PRN Reason: Fever >100.4 F Last Admin: 09/28/18 09:14 Dose: 650 mg Amiodarone HCl (Cordarone) 200 mg PO DAILY [facility] Last Admin: 09/30/18 09:59 Dose: 200 mg Aspirin (Ecotrin) 81 mg PO DAILY [facility] Last Admin: 09/30/18 09:59 Dose: 81 mg Betamethasone/Clotrimazole (Lotrisone) 0 gm TOP BID [facility] Last Admin: 09/30/18 10:16 Dose: 1 applic Carbidopa/Levodopa (Sinemet 10/100) 1 tab PO TID [facility] Last Admin: 09/30/18 13:33 Dose: 1 tab Carvedilol (Coreg) 12.5 mg PO BID [facility] Last Admin: 09/30/18 10:02 Dose: 12.5 mg Docusate Sodium (Colace) 100 mg PO TID [facility] Last Admin: 09/30/18 13:32 Dose: 100 mg Ferrous Sulfate (Feosol) 325 mg PO BID [facility] Last Admin: 09/30/18 10:05 Dose: 325 mg Finasteride (Proscar) 5 mg PO DAILY [facility] Last Admin: 09/30/18 09:59 Dose: 5 mg Furosemide (Lasix) 40 mg IVP DAILY [facility] Last Admin: 09/30/18 10:02 Dose: 40 mg Hydralazine HCl (Apresoline) 50 mg PO Q8 [facility] Last Admin: 09/30/18 13:32 Dose: 50 mg Ampicillin 1 gm/ Sodium (Chloride) 100 mls @ 100 mls/hr IVPB Q6H [facility]; Protocol Last Admin: 09/30/18 09:59 Dose: 100 mls/hr Insulin Detemir (Levemir) 10 unit SC [facility] Last Admin: 09/28/18 21:31 Dose: 10 units Insulin Human Regular (Novolin R) 0 unit SC [facility]; Protocol Last Admin: 09/30/18 13:16 Dose: 3 u Lisinopril (Zestril) 20 mg PO DAILY [facility] Last Admin: 09/30/18 10:20 Dose: 20 mg Quetiapine Fumarate (Seroquel) 25 mg PO BID [facility] Last Admin: 09/30/18 09:59 Dose: 25 mg Rosuvastatin Calcium (Crestor) 10 mg PO [facility] Last Admin: 09/29/18 22:00 Dose: 10 mg Tamsulosin HCl (Flomax) 0.4 mg PO DAILY [facility] Last Admin: 09/30/18 09:59 Dose: 0.4 mg - Labs Labs: 09/29/18 04:09 09/29/18 04:09 PT 11.6 SECONDS (9.7-12.2) 09/18/18 03:36 INR 1.1 09/18/18 03:36 APTT 62 SECONDS (21-34) H 09/18/18 03:36 - Constitutional Appears: No Acute Distress, Cachectic, Chronically Ill - Head Exam Head Exam: NORMAL INSPECTION - Eye Exam Eye Exam: EOMI, PERRL - ENT Exam ENT Exam: Normal Oropharynx - Neck Exam Neck Exam: Normal Inspection - Respiratory Exam Respiratory Exam: Clear to Ausculation Bilateral, NORMAL BREATHING PATTERN - Cardiovascular Exam Cardiovascular Exam: REGULAR RHYTHM, +S1, +S2 - GI/Abdominal Exam GI & Abdominal Exam: Soft, Normal Bowel Sounds. absent: Tenderness - Extremities Exam Extremities Exam: Normal Capillary Refill. absent: Calf Tenderness, Joint Sw elling, Pedal Edema - Back Exam Back Exam: absent: rash noted - Neurological Exam Neurological Exam: Alert, Awake, CN II-XII Intact, Reflexes Normal - Psychiatric Exam Psychiatric exam: Normal Mood - Skin Skin Exam: Normal Color, Warm Assessment and Plan (1) Listeria infection Assessment & Plan: repeat blood cultures 09/29/18 -ve growth to date repeat URINE CULTURES -VE ESR 60. AWAIT 2D ECHO . ON IV ABX. Status: Acute (2) Acute on chronic systolic CHF (congestive heart failure) Status: Acute (3) Altered mental status Assessment & Plan: IMPROVING . +VE TREMORS Status: Acute (4) CAD (coronary artery disease) Status: Chronic (5) HTN (hypertension) Status: Chronic (6) Parkinson disease Assessment & Plan: ON SINEMET. Status: Chronic (7) AICD (automatic cardioverter/defibrillator) present Status: Acute (8) Dysphagia Assessment & Plan: AWAIT SWALLOW EVAL. ELEVATE HEAD/OR SIT UP POSITION WHILE FEEDING Status: Acute
[2018-09-30] MEDS: Insulin Detemir 100 units/ml Vial (Levemir) SC SCH (21:43)
--- NOTE | 2018-09-30 22:28 | PN ---
DATE: 09/30/2018 SUBJECTIVE: The patient is confused, but less agitated. Daughter is at the bedside. PHYSICAL EXAMINATION: VITAL SIGNS: Blood pressure 108/52, heart rate 60, temperature 97.5, respirations 20. HEENT: Normocephalic. CHEST: Bilateral rhonchi. HEART: S1 and S2 regular. EXTREMITIES: No edema. LABORATORY DATA: Repeat echocardiogram study revealed ejection fraction in the range of 30% to 40%, mild aortic insufficiency, [id number] mitral insufficiency. No definite valvular regurgitation noted. ASSESSMENT: 1. Nonischemic cardiomyopathy. 2. Listeria monocytogenes bacteremia. No definite evidence of valvular vegetation. 3. Altered mental status. 4. Parkinsonism. PLAN: Continue ampicillin intravenously every 6 hours, hydralazine 50 mg every 8 hours, amiodarone 200 mg once a day, Coreg 12.5 mg twice a day, Crestor 10 mg once a day, aspirin 81 mg once a day, Feosol one tablet twice a day, Sinemet 1 tablet t.i.d., and Zestril 20 mg once a day. Grey Reese MD
[2018-10-01] MEDS: AMPicillin 1 GM in Sodium Chloride 0.9% 100 ML IVPB SCH ×4 (03:52→21:34)
[2018-10-01] MEDS: (Novolin R) Insulin Human Regular 100 units/ml vial SC SCH ×4 (08:24→22:26)
[2018-10-01] MEDS: Clotrimazole/Betamethasone Cream(15 gm) TOP SCH ×2 (09:54→18:24)
--- NOTE | 2018-10-01 15:34 | PN ---
DATE: 10/01/2018 SUBJECTIVE: The patient is still confused, but not agitated and does not appear to be in respiratory distress. PHYSICAL EXAMINATION: VITAL SIGNS: Blood pressure 166/56, heart rate 57, temperature 98.2, respirations 20. HEENT: Normocephalic. CHEST: Clear. HEART: S1 and S2 regular. EXTREMITIES: No edema. LABORATORY DATA: Today's blood sugar is 148. ASSESSMENT: 1. Nonischemic cardiomyopathy. 2. Parkinsonism. 3. Listeria monocytogenes bacteremia. 4. Altered mental status. 5. Uncontrolled diabetes mellitus. PLAN: Continue current IV ampicillin 1 g every 6 hours, continue amiodarone 200 mg daily, Colace 100 mg t.i.d., hydralazine 50 mg every 8 hours, aspirin 81 mg once a day, Lasix 40 mg intravenously daily, Sinemet one tablet t.i.d., and Zestril 20 mg daily. Grey Reese MD
[2018-10-01] MEDS: Insulin Detemir 100 units/ml Vial (Levemir) SC SCH (21:36)
[2018-10-02] MEDS: AMPicillin 1 GM in Sodium Chloride 0.9% 100 ML IVPB SCH ×4 (04:10→22:56)
[2018-10-02] MEDS: (Novolin R) Insulin Human Regular 100 units/ml vial SC SCH ×4 (07:28→22:24)
[2018-10-02] MEDS: Clotrimazole/Betamethasone Cream(15 gm) TOP SCH ×2 (09:54→18:04)
--- NOTE | 2018-10-02 16:11 | CP.PCM.PN ---
Subjective - Date & Time of Evaluation Date of Evaluation: 10/02/18 Time of Evaluation: 16:11 - Subjective Subjective: afebrile comfortable on antibiotics awake and responsive. c/o CONSTIPATION. PATIENT UNDERWENT 2-D ECHO. LV -SEVERELY DILATED aSYMMETRICAL LEFT VENTRICULAR HYPERTROPHY LVSF MODERATELY IMPAIRED. EF 35-40%. PACEMAKER LEAD IN RIGHT VENTRICLE THICKENED AND ECHOGENIC -pOSSIBLE THROMBUS/CALCIFICATION ? VEGETATION. (see full report. ) Objective - Vital Signs/Intake and Output Vital Signs (last 24 hours): Temp Pulse Resp BP Pulse Ox 98 F 60 20 137/58 L 97 10/02/18 08:31 10/02/18 13:35 10/02/18 08:31 10/02/18 13:35 10/02/18 08:31 Intake and Output: 10/02/18 10/02/18 06:59 18:59 Intake Total 200 500 Output Total 1275 1075 Balance -1075 -575 - Medications Medications: Current Medications Acetaminophen (Tylenol 325mg Tab) 650 mg PO Q4 PRN PRN Reason: Fever >100.4 F Last Admin: 10/02/18 13:39 Dose: 650 mg Amiodarone HCl (Cordarone) 200 mg PO DAILY [facility] Last Admin: 10/02/18 09:27 Dose: 200 mg Aspirin (Ecotrin) 81 mg PO DAILY [facility] Last Admin: 10/02/18 09:27 Dose: 81 mg Betamethasone/Clotrimazole (Lotrisone) 0 gm TOP BID [facility] Last Admin: 10/02/18 09:54 Dose: Not Given Carbidopa/Levodopa (Sinemet 10/100) 1 tab PO TID [facility] Last Admin: 10/02/18 13:37 Dose: 1 tab Carvedilol (Coreg) 12.5 mg PO BID [facility] Last Admin: 10/02/18 09:27 Dose: 12.5 mg Docusate Sodium (Colace) 100 mg PO TID [facility] Last Admin: 10/02/18 13:37 Dose: 100 mg Ferrous Sulfate (Feosol) 325 mg PO BID [facility] Last Admin: 10/02/18 09:27 Dose: 325 mg Finasteride (Proscar) 5 mg PO DAILY [facility] Last Admin: 10/02/18 09:26 Dose: 5 mg Furosemide (Lasix) 40 mg IVP DAILY [facility] Last Admin: 10/02/18 09:26 Dose: 40 mg Hydralazine HCl (Apresoline) 50 mg PO Q8 [facility] Last Admin: 10/02/18 13:37 Dose: 50 mg Ampicillin 1 gm/ Sodium (Chloride) 100 mls @ 100 mls/hr IVPB Q6H [facility]; Protocol Last Admin: 10/02/18 09:48 Dose: 100 mls/hr Insulin Detemir (Levemir) 10 unit SC [facility] Last Admin: 10/01/18 21:36 Dose: 10 units Insulin Human Regular (Novolin R) 0 unit SC [facility]; Protocol Last Admin: 10/02/18 12:34 Dose: 3 u Lisinopril (Zestril) 20 mg PO DAILY [facility] Last Admin: 10/02/18 09:27 Dose: 20 mg Quetiapine Fumarate (Seroquel) 25 mg PO BID [facility] Last Admin: 10/02/18 09:27 Dose: 25 mg Rosuvastatin Calcium (Crestor) 10 mg PO [facility] Last Admin: 10/01/18 21:34 Dose: 10 mg Tamsulosin HCl (Flomax) 0.4 mg PO DAILY [facility] Last Admin: 10/02/18 09:27 Dose: 0.4 mg - Labs Labs: 09/29/18 04:09 09/29/18 04:09 PT 11.6 SECONDS (9.7-12.2) 09/18/18 03:36 INR 1.1 09/18/18 03:36 APTT 62 SECONDS (21-34) H 09/18/18 03:36 - Constitutional Appears: No Acute Distress, Confused (intermittently but able to answer questions.), Cachectic - Head Exam Head Exam: NORMOCEPHALIC - Eye Exam Eye Exam: EOMI, PERRL - ENT Exam ENT Exam: Normal Oropharynx - Neck Exam Neck Exam: Normal Inspection - Respiratory Exam Respiratory Exam: Clear to Ausculation Bilateral - Cardiovascular Exam Cardiovascular Exam: REGULAR RHYTHM, +S1, +S2 - GI/Abdominal Exam GI & Abdominal Exam: Soft, Normal Bowel Sounds. absent: Mass, Organomegaly - Extremities Exam Extremities Exam: Normal Capillary Refill. absent: Calf Tenderness, Pedal Edema - Neurological Exam Neurological Exam: Awake, CN II-XII Intact - Psychiatric Exam Psychiatric exam: Normal Mood - Skin Skin Exam: Normal Color, Warm Assessment and Plan (1) Listeria infection Status: Acute (2) Acute on chronic systolic CHF (congestive heart failure) Status: Acute (3) Altered mental status Status: Acute (4) CAD (coronary artery disease) Status: Chronic (5) HTN (hypertension) Status: Chronic (6) Parkinson disease Status: Chronic (7) AICD (automatic cardioverter/defibrillator) present Assessment & Plan: SEE 2D ECHO . AWAIT CARDIOLOGY RECOMMENDATIONS/AND IMPRESSION. COMPUTER SYSTEMS INTEGRATOR MS LYNNE TO CONVEY THE REPORT TO CARDIOLOGY. Status: Acute (8) Dysphagia Assessment & Plan: PATIENT PRESENTLY DENIES DYSPHAGIA. PER RN PATIENT SWALLOWS HIS PILL VERY WELL. Status: Acute - Assessment and Plan (Free Text) Plan: repeat blood cultures 09/29/18 -ve growth to date repeat URINE CULTURES -VE ESR 60. 2D ECHO REPORT NOTED.wILL DISCUSS WITH CARDIOLOGY 2 REVIEW ECHO REPORT AND AWAIT HIS RECOMMENDA CONTINUE IV AMPICILLIN 1 G EVERY [address] NOW[address] SCAN OF THE HEAD R/O CEREBRITIS VERSUS MASS LESION PATIENT HAS HISTORY OF LISTERIA MONOCYTOGENES. CASE DISCUSSED WITH THE STAFF/ AND COMPUTER SYSTEMS INTEGRATOR- MS LYNNE.
--- NOTE | 2018-10-02 18:00 | PN ---
DATE: 10/02/2018 SUBJECTIVE: The patient is confused, but not agitated and does not appear to be in respiratory distress. PHYSICAL EXAMINATION: VITAL SIGNS: Blood pressure 148/53, heart rate 67, temperature 98, respirations 20. HEENT: Normocephalic. CHEST: Clear. HEART: S1, S2 regular. EXTREMITIES: No edema. LABORATORY DATA: Today's blood sugar is 137 and 239. ASSESSMENT: 1. Dilated cardiomyopathy, status post implantable cardioverter-defibrillator placement. 2. Listeria monocytogenes bacteremia. 3. Uncontrolled diabetes mellitus. 4. Parkinsonism. 5. Prerenal azotemia. RECOMMENDATIONS: Continue current IV ampicillin 1 g every 6 hours, continue hydralazine 50 mg every 8 hours, amiodarone 200 mg once a day, Crestor 10 mg once a day, Coreg 12.5 mg twice a day, Lasix 40 mg intravenously daily, Sinemet 1 tablet t.i.d., and Zestril 20 mg daily. Grey Reese MD
[2018-10-02] MEDS: Insulin Detemir 100 units/ml Vial (Levemir) SC SCH (22:56)
--- NOTE | 2018-10-03 02:08 | CP.PCM.PN ---
Subjective - Date & Time of Evaluation Date of Evaluation: 09/26/18 - Subjective Subjective: dictated Objective - Vital Signs/Intake and Output Vital Signs (last 24 hours): Temp Pulse Resp BP Pulse Ox 98 F 62 20 140/56 L 96 10/02/18 23:00 10/02/18 23:00 10/02/18 23:00 10/02/18 23:00 10/02/18 23:00 Intake and Output: 10/02/18 10/03/18 18:59 06:59 Intake Total 500 200 Output Total 1075 400 Balance -575 -200 - Medications Medications: Current Medications Acetaminophen (Tylenol 325mg Tab) 650 mg PO Q4 PRN PRN Reason: Fever >100.4 F Last Admin: 10/02/18 13:39 Dose: 650 mg Amiodarone HCl (Cordarone) 200 mg PO DAILY [facility] Last Admin: 10/02/18 09:27 Dose: 200 mg Aspirin (Ecotrin) 81 mg PO DAILY [facility] Last Admin: 10/02/18 09:27 Dose: 81 mg Betamethasone/Clotrimazole (Lotrisone) 0 gm TOP BID [facility] Last Admin: 10/02/18 18:04 Dose: 1 applic Carbidopa/Levodopa (Sinemet 10/100) 1 tab PO TID [facility] Last Admin: 10/02/18 18:02 Dose: 1 tab Carvedilol (Coreg) 12.5 mg PO BID [facility] Last Admin: 10/02/18 18:02 Dose: 12.5 mg Docusate Sodium (Colace) 100 mg PO TID [facility] Last Admin: 10/02/18 18:02 Dose: 100 mg Ferrous Sulfate (Feosol) 325 mg PO BID [facility] Last Admin: 10/02/18 18:02 Dose: 325 mg Finasteride (Proscar) 5 mg PO DAILY [facility] Last Admin: 10/02/18 09:26 Dose: 5 mg Furosemide (Lasix) 40 mg IVP DAILY [facility] Last Admin: 10/02/18 09:26 Dose: 40 mg Hydralazine HCl (Apresoline) 50 mg PO Q8 [facility] Last Admin: 10/02/18 22:57 Dose: Not Given Ampicillin 1 gm/ Sodium (Chloride) 100 mls @ 100 mls/hr IVPB Q6H [facility]; Protocol Last Admin: 10/02/18 22:56 Dose: 100 mls/hr Insulin Detemir (Levemir) 10 unit SC [facility] Last Admin: 10/02/18 22:56 Dose: 10 units Insulin Human Regular (Novolin R) 0 unit SC [facility]; Protocol Last Admin: 10/02/18 22:24 Dose: Not Given Lisinopril (Zestril) 20 mg PO DAILY [facility] Last Admin: 10/02/18 09:27 Dose: 20 mg Quetiapine Fumarate (Seroquel) 25 mg PO BID [facility] Last Admin: 10/02/18 18:02 Dose: 25 mg Rosuvastatin Calcium (Crestor) 10 mg PO [facility] Last Admin: 10/02/18 22:57 Dose: Not Given Tamsulosin HCl (Flomax) 0.4 mg PO DAILY [facility] Last Admin: 10/02/18 09:27 Dose: 0.4 mg - Labs Labs: 09/29/18 04:09 09/29/18 04:09 PT 11.6 SECONDS (9.7-12.2) 09/18/18 03:36 INR 1.1 09/18/18 03:36 APTT 62 SECONDS (21-34) H 09/18/18 03:36
--- NOTE | 2018-10-03 02:09 | CP.PCM.PN ---
Subjective - Date & Time of Evaluation Date of Evaluation: 10/02/18 - Subjective Subjective: dictated Objective - Vital Signs/Intake and Output Vital Signs (last 24 hours): Temp Pulse Resp BP Pulse Ox 98 F 62 20 140/56 L 96 10/02/18 23:00 10/02/18 23:00 10/02/18 23:00 10/02/18 23:00 10/02/18 23:00 Intake and Output: 10/02/18 10/03/18 18:59 06:59 Intake Total 500 200 Output Total 1075 400 Balance -575 -200 - Medications Medications: Current Medications Acetaminophen (Tylenol 325mg Tab) 650 mg PO Q4 PRN PRN Reason: Fever >100.4 F Last Admin: 10/02/18 13:39 Dose: 650 mg Amiodarone HCl (Cordarone) 200 mg PO DAILY [facility] Last Admin: 10/02/18 09:27 Dose: 200 mg Aspirin (Ecotrin) 81 mg PO DAILY [facility] Last Admin: 10/02/18 09:27 Dose: 81 mg Betamethasone/Clotrimazole (Lotrisone) 0 gm TOP BID [facility] Last Admin: 10/02/18 18:04 Dose: 1 applic Carbidopa/Levodopa (Sinemet 10/100) 1 tab PO TID [facility] Last Admin: 10/02/18 18:02 Dose: 1 tab Carvedilol (Coreg) 12.5 mg PO BID [facility] Last Admin: 10/02/18 18:02 Dose: 12.5 mg Docusate Sodium (Colace) 100 mg PO TID [facility] Last Admin: 10/02/18 18:02 Dose: 100 mg Ferrous Sulfate (Feosol) 325 mg PO BID [facility] Last Admin: 10/02/18 18:02 Dose: 325 mg Finasteride (Proscar) 5 mg PO DAILY [facility] Last Admin: 10/02/18 09:26 Dose: 5 mg Furosemide (Lasix) 40 mg IVP DAILY [facility] Last Admin: 10/02/18 09:26 Dose: 40 mg Hydralazine HCl (Apresoline) 50 mg PO Q8 [facility] Last Admin: 10/02/18 22:57 Dose: Not Given Ampicillin 1 gm/ Sodium (Chloride) 100 mls @ 100 mls/hr IVPB Q6H [facility]; Protocol Last Admin: 10/02/18 22:56 Dose: 100 mls/hr Insulin Detemir (Levemir) 10 unit SC [facility] Last Admin: 10/02/18 22:56 Dose: 10 units Insulin Human Regular (Novolin R) 0 unit SC [facility]; Protocol Last Admin: 10/02/18 22:24 Dose: Not Given Lisinopril (Zestril) 20 mg PO DAILY [facility] Last Admin: 10/02/18 09:27 Dose: 20 mg Quetiapine Fumarate (Seroquel) 25 mg PO BID [facility] Last Admin: 10/02/18 18:02 Dose: 25 mg Rosuvastatin Calcium (Crestor) 10 mg PO [facility] Last Admin: 10/02/18 22:57 Dose: Not Given Tamsulosin HCl (Flomax) 0.4 mg PO DAILY [facility] Last Admin: 10/02/18 09:27 Dose: 0.4 mg - Labs Labs: 09/29/18 04:09 09/29/18 04:09 PT 11.6 SECONDS (9.7-12.2) 09/18/18 03:36 INR 1.1 09/18/18 03:36 APTT 62 SECONDS (21-34) H 09/18/18 03:36
[2018-10-03] MEDS: AMPicillin 1 GM in Sodium Chloride 0.9% 100 ML IVPB SCH ×5 (04:25→21:42)
[2018-10-03 06:51] LABS: BASO % 0.3 % (0.0-2.0); EOS # 0.1 K/uL (0.0-0.7); HEMOGLOBIN 11.2 g/dL (12.0-18.0); LYMPH # 1.8 K/uL (1.0-4.3); LYMPH % 27.3 % (20.0-40.0); MEAN CELL VOLUME 79.4 fL (80.0-94.0); MEAN CORPUSCULAR HGB CONC 32.8 g/dL (33.0-37.0); MEAN PLATELET VOLUME 7.9 fL (7.2-11.7); MONO # 0.7 K/uL (0.0-0.8); MONO % 9.9 % (0.0-10.0); NEUT % 60.5 % (50.0-75.0); NRBC % 0.1 % (0.0-2.0); RBC 4.3 Mil/uL (4.40-5.90); WHITE BLOOD COUNT 6.6 K/uL (4.8-10.8)
[2018-10-03] MEDS: (Novolin R) Insulin Human Regular 100 units/ml vial SC SCH ×4 (07:30→21:45)
[2018-10-03 07:36] LABS: ALBUMIN 3.2 g/dL (3.5-5.0); BILIRUBIN,DIRECT 0.3 mg/dL (0.0-0.4); CALCIUM 8.8 mg/dl (8.6-10.4)
--- NOTE | 2018-10-03 08:29 | PN ---
DATE: 10/03/2018 SUBJECTIVE: Rai Ruggiero is improving. He has less cough, less shortness of breath. The patient is waiting to be placed, although the patient is confused. PHYSICAL EXAMINATION: VITAL SIGNS: Blood pressure 145/73, pulse 58, respiratory rate 20, temperature 97.6. LUNGS: Bilateral basal rales. CARDIOVASCULAR SYSTEM: S1 and S2 plus S3 positive. ABDOMEN: Soft. CENTRAL NERVOUS SYSTEM: Severely reduced memory. ASSESSMENT: 1. Alzheimer. 2. Congestive heart failure due to hypertensive heart disease plus cardiomyopathy. 3. Hypertension. 4. Type 2 diabetes. 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 Monitor the patient. Dmitriy Lora MD
--- NOTE | 2018-10-03 08:31 | PN ---
DATE: 10/03/2018 SUBJECTIVE: Rai Ruggiero is improving. The patient's family members spoke to me, and the patient does not want to go to jail. The patient is feeling better. I will speak to Social Service. PHYSICAL EXAMINATION: VITAL SIGNS: Blood pressure 148/53, pulse 67, respiratory rate 20, temperature 98. LUNGS: Clear. CARDIOVASCULAR SYSTEM: S1, S2 regular. ABDOMEN: Soft. CENTRAL NERVOUS SYSTEM: Forgetful. ASSESSMENT: 1. Dementia. 2. Chronic heart failure. 3. Diabetes. 4. Hypertension. PLAN: I will consider discharge once Social Service has cleared the patient. Dmitriy Lora MD
--- NOTE | 2018-10-03 08:32 | CT ---
Date of service: 10/02/2018 PROCEDURE: CT HEAD WITHOUT CONTRAST. HISTORY: AMS / blood culture + COMPARISON: Comparison is made with 03/20/2017 TECHNIQUE: Axial computed tomography images were obtained through the head/brain without intravenous contrast. Radiation dose: Total exam DLP = 990.84 mGy-cm. This CT exam was performed using one or more of the following dose reduction techniques: Automated exposure control, adjustment of the mA and/or kV according to patient size, and/or use of iterative reconstruction technique. FINDINGS: HEMORRHAGE: No intracranial hemorrhage. BRAIN: No mass effect or edema. Mild atrophy and [id number] chronic microvascular white matter ischemic changes are again noted. VENTRICLES: Unremarkable. No hydrocephalus. CALVARIUM: Unremarkable. PARANASAL SINUSES: [id number] left maxillary sinus mucosal thickening. MASTOID AIR CELLS: Unremarkable as visualized. No inflammatory changes. OTHER FINDINGS: None. IMPRESSION: No evidence of acute intracranial hemorrhage intracranial collection mass effect or midline shift. Preliminary report was submitted by [facility] Radiology contains concordant findings.
[2018-10-03] MEDS: Clotrimazole/Betamethasone Cream(15 gm) TOP SCH ×2 (11:00→18:13)
--- NOTE | 2018-10-03 16:37 | PN ---
DATE: 10/03/2018 SUBJECTIVE: The patient is oriented to place. He denies any chest pain. He is asking when he is going to go home. PHYSICAL EXAMINATION: VITAL SIGNS: Blood pressure 183/58, heart rate is 62, temperature 98.2, respiratory rate 20. HEENT: Normocephalic. CHEST: Clear. HEART: S1, S2 regular. EXTREMITIES: No edema. LABORATORY DATA: Hemoglobin and hematocrit 11.1 and 34.2, white count and platelet count are within normal limits. Today's SMA-7 is within normal limits except for glucose of 138 and BUN of 37. The report of the most recent echo mentioned severely dilated left ventricle with mildly hypertrophy and ejection fraction in the range of 35% to 40%. The pacemaker lead in right ventricle is thickened and echogenic suggestive of possible thrombus, calcification of vegetation and no definite valvular regurgitation. ASSESSMENT: 1. Dilated cardiomyopathy status post implantable cardioverter defibrillator placement. 2. Listeria monocytogenes bacteremia, most likely infected and implantable cardioverter defibrillator leak. 3. Parkinsonism. RECOMMENDATIONS: Continue intravenous ampicillin at 1 g every 6 hours, a total of 6 weeks of intravenous antibiotics with a followup echocardiographic study. I would request EP consult to evaluate the patient for possible trigger of that ICD leak. Grey Reese MD
--- NOTE | 2018-10-03 19:44 | CP.PCM.PN ---
Subjective - Date & Time of Evaluation Date of Evaluation: 10/03/18 Time of Evaluation: 19:44 - Subjective Subjective: AFEBRILE. AWAKE. OFFERS NO COMPLAINTS. CLINICALLY SAME. ON iv AMPICILLIN. Objective - Vital Signs/Intake and Output Vital Signs (last 24 hours): Temp Pulse Resp BP Pulse Ox 97.9 F 63 20 172/64 H 96 10/03/18 15:26 10/03/18 15:26 10/03/18 15:26 10/03/18 17:56 10/03/18 15:26 Intake and Output: 10/03/18 10/04/18 18:59 06:59 Intake Total 150 Output Total 200 Balance -50 - Medications Medications: Current Medications Acetaminophen (Tylenol 325mg Tab) 650 mg PO Q4 PRN PRN Reason: Fever >100.4 F Last Admin: 10/02/18 13:39 Dose: 650 mg Amiodarone HCl (Cordarone) 200 mg PO DAILY [facility] Last Admin: 10/03/18 09:33 Dose: 200 mg Aspirin (Ecotrin) 81 mg PO DAILY [facility] Last Admin: 10/03/18 09:32 Dose: 81 mg Betamethasone/Clotrimazole (Lotrisone) 0 gm TOP BID [facility] Last Admin: 10/03/18 18:13 Dose: Not Given Carbidopa/Levodopa (Sinemet 10/100) 1 tab PO TID [facility] Last Admin: 10/03/18 17:55 Dose: 1 tab Carvedilol (Coreg) 12.5 mg PO BID [facility] Last Admin: 10/03/18 17:56 Dose: 12.5 mg Docusate Sodium (Colace) 100 mg PO TID [facility] Last Admin: 10/03/18 17:55 Dose: 100 mg Ferrous Sulfate (Feosol) 325 mg PO BID [facility] Last Admin: 10/03/18 17:56 Dose: 325 mg Finasteride (Proscar) 5 mg PO DAILY [facility] Last Admin: 10/03/18 09:33 Dose: 5 mg Furosemide (Lasix) 40 mg IVP DAILY [facility] Last Admin: 10/03/18 11:00 Dose: 40 mg Hydralazine HCl (Apresoline) 75 mg PO Q8 [facility] Ampicillin 1 gm/ Sodium (Chloride) 100 mls @ 100 mls/hr IVPB Q6H [facility]; Protocol Last Admin: 10/03/18 17:12 Dose: Not Given Insulin Detemir (Levemir) 10 unit SC [facility] Last Admin: 10/02/18 22:56 Dose: 10 units Insulin Human Regular (Novolin R) 0 unit SC [facility]; Protocol Last Admin: 10/03/18 17:13 Dose: Not Given Lisinopril (Zestril) 20 mg PO DAILY [facility] Last Admin: 10/03/18 09:33 Dose: 20 mg Quetiapine Fumarate (Seroquel) 25 mg PO BID [facility] Last Admin: 10/03/18 17:55 Dose: 25 mg Rosuvastatin Calcium (Crestor) 10 mg PO [facility] Last Admin: 10/02/18 22:57 Dose: Not Given Tamsulosin HCl (Flomax) 0.4 mg PO DAILY [facility] Last Admin: 10/03/18 09:33 Dose: 0.4 mg - Labs Labs: 10/03/18 06:44 10/03/18 06:44 PT 11.6 SECONDS (9.7-12.2) 09/18/18 03:36 INR 1.1 09/18/18 03:36 APTT 62 SECONDS (21-34) H 09/18/18 03:36 - Constitutional Appears: No Acute Distress, Cachectic, Chronically Ill - Head Exam Head Exam: NORMAL INSPECTION - Eye Exam Eye Exam: EOMI, PERRL - ENT Exam ENT Exam: Normal Oropharynx - Neck Exam Neck Exam: Normal Inspection. absent: Meningismus - Respiratory Exam Respiratory Exam: Clear to Ausculation Bilateral - Cardiovascular Exam Cardiovascular Exam: REGULAR RHYTHM, +S1, +S2 - GI/Abdominal Exam GI & Abdominal Exam: Soft, Normal Bowel Sounds - Extremities Exam Extremities Exam: Normal Capillary Refill. absent: Calf Tenderness, Pedal Edema - Neurological Exam Neurological Exam: Alert, Awake, CN II-XII Intact - Psychiatric Exam Psychiatric exam: Normal Mood - Skin Skin Exam: Normal Color, Warm Assessment and Plan (1) Listeria infection Status: Acute (2) Acute on chronic systolic CHF (congestive heart failure) Status: Acute (3) Altered mental status Status: Acute (4) CAD (coronary artery disease) Status: Chronic (5) HTN (hypertension) Status: Chronic (6) Parkinson disease Status: Chronic (7) AICD (automatic cardioverter/defibrillator) present Status: Acute (8) Dysphagia Status: Acute - Assessment and Plan (Free Text) Plan: repeat blood cultures 09/29/18 -ve growth to date repeat URINE CULTURES -VE ESR 60. 2D ECHO REPORT NOTED. CARDIOLOGY 2 REVIEW ECHO REPORT AND AWAIT HIS RECOMMENDATIONS CONTINUE IV AMPICILLIN 1 G EVERY 6 HOURLY FOR TOTAL OF 6WKS IN VIEW OF NEW FINDINGS. CASE DISCUSSED WITH THE STAFF/ AND REPAIRER RESISTANCE WELDING MACHINES- MS LYNNE. REPAIRER RESISTANCE WELDING MACHINES INFORMS THAT PATIENT WILL BE EVALUATED BY CHARTERED WEALTH MANAGER PER RECOMMENDATIONS OF DR ALBARRAN SCOW CAPTAIN.
[2018-10-03] MEDS: Insulin Detemir 100 units/ml Vial (Levemir) SC SCH (21:43)
--- NOTE | 2018-10-03 21:55 | CP.PCM.PN ---
Subjective - Subjective Subjective: dictated Objective - Vital Signs/Intake and Output Vital Signs (last 24 hours): Temp Pulse Resp BP Pulse Ox 97.9 F 63 20 172/64 H 96 10/03/18 15:26 10/03/18 15:26 10/03/18 15:26 10/03/18 17:56 10/03/18 15:26 Intake and Output: 10/03/18 10/04/18 18:59 06:59 Intake Total 150 Output Total 200 Balance -50 - Medications Medications: Current Medications Acetaminophen (Tylenol 325mg Tab) 650 mg PO Q4 PRN PRN Reason: Fever >100.4 F Last Admin: 10/02/18 13:39 Dose: 650 mg Amiodarone HCl (Cordarone) 200 mg PO DAILY [facility] Last Admin: 10/03/18 09:33 Dose: 200 mg Aspirin (Ecotrin) 81 mg PO DAILY [facility] Last Admin: 10/03/18 09:32 Dose: 81 mg Betamethasone/Clotrimazole (Lotrisone) 0 gm TOP BID [facility] Last Admin: 10/03/18 18:13 Dose: Not Given Carbidopa/Levodopa (Sinemet 10/100) 1 tab PO TID [facility] Last Admin: 10/03/18 17:55 Dose: 1 tab Carvedilol (Coreg) 12.5 mg PO BID [facility] Last Admin: 10/03/18 17:56 Dose: 12.5 mg Docusate Sodium (Colace) 100 mg PO TID [facility] Last Admin: 10/03/18 17:55 Dose: 100 mg Ferrous Sulfate (Feosol) 325 mg PO BID [facility] Last Admin: 10/03/18 17:56 Dose: 325 mg Finasteride (Proscar) 5 mg PO DAILY [facility] Last Admin: 10/03/18 09:33 Dose: 5 mg Furosemide (Lasix) 40 mg IVP DAILY [facility] Last Admin: 10/03/18 11:00 Dose: 40 mg Hydralazine HCl (Apresoline) 75 mg PO Q8 [facility] Last Admin: 10/03/18 21:44 Dose: 75 mg Ampicillin 1 gm/ Sodium (Chloride) 100 mls @ 100 mls/hr IVPB Q6H [facility]; Protocol Last Admin: 10/03/18 21:42 Dose: Not Given Insulin Detemir (Levemir) 10 unit SC [facility] Last Admin: 10/03/18 21:43 Dose: Not Given Insulin Human Regular (Novolin R) 0 unit SC [facility]; Protocol Last Admin: 10/03/18 21:45 Dose: Not Given Lisinopril (Zestril) 20 mg PO DAILY [facility] Last Admin: 10/03/18 09:33 Dose: 20 mg Quetiapine Fumarate (Seroquel) 25 mg PO BID [facility] Last Admin: 10/03/18 17:55 Dose: 25 mg Rosuvastatin Calcium (Crestor) 10 mg PO HS [facility] Last Admin: 10/03/18 21:45 Dose: 10 mg Tamsulosin HCl (Flomax) 0.4 mg PO DAILY [facility] Last Admin: 10/03/18 09:33 Dose: 0.4 mg - Labs Labs: 10/03/18 06:44 10/03/18 06:44 PT 11.6 SECONDS (9.7-12.2) 09/18/18 03:36 INR 1.1 09/18/18 03:36 APTT 62 SECONDS (21-34) H 09/18/18 03:36
[2018-10-04] MEDS: AMPicillin 1 GM in Sodium Chloride 0.9% 100 ML IVPB SCH ×4 (04:06→22:30)
[2018-10-04] MEDS: (Novolin R) Insulin Human Regular 100 units/ml vial SC SCH ×3 (07:30→16:43)
--- NOTE | 2018-10-04 07:52 | PN ---
DATE: 10/04/2018 SUBJECTIVE: The patient, Rai Ruggiero, is afebrile. He has infective endocarditis. His blood pressure is poorly controlled. 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 PHYSICAL EXAMINATION VITAL SIGNS: Blood pressure is 172/64, pulse 62, respiratory rate 20, and temperature 97.9. GENERAL: The patient has been refusing his oral medications, and his blood pressure control has been a challenge. LUNGS: Bilaterally clear. No rales. CARDIOVASCULAR SYSTEM: S1 and S2 plus S4 positive. ABDOMEN: Soft. ASSESSMENT: 1. Infective endocarditis, continue antibiotics. 2. Alzheimer's. 3. Congestive heart failure. 4. Poorly controlled hypertension due to the patient is refusing home medications. PLAN: Continue current medication. Monitor the patient. Dmitriy Lora MD
[2018-10-04] MEDS: Clotrimazole/Betamethasone Cream(15 gm) TOP SCH ×2 (09:57→19:05)
--- NOTE | 2018-10-04 15:00 | CP.PCM.PN ---
Subjective - Date & Time of Evaluation Date of Evaluation: 10/04/18 Time of Evaluation: 10:30 - Subjective Subjective: JAMB CUTTER NOTES patient seen today , awake, alert , oriented to person, comfortable and calm a febrile Objective - Vital Signs/Intake and Output Vital Signs (last 24 hours): Temp Pulse Resp BP Pulse Ox 97.4 F L 64 20 140/72 96 10/04/18 07:00 10/04/18 07:00 10/04/18 07:00 10/04/18 12:00 10/04/18 07:00 Intake and Output: 10/04/18 10/04/18 06:59 18:59 Intake Total 100 Output Total 1250 Balance -1150 - Medications Medications: Current Medications Acetaminophen (Tylenol 325mg Tab) 650 mg PO Q4 PRN PRN Reason: Fever >100.4 F Last Admin: 10/02/18 13:39 Dose: 650 mg Amiodarone HCl (Cordarone) 200 mg PO DAILY [facility] Last Admin: 10/04/18 09:56 Dose: 200 mg Aspirin (Ecotrin) 81 mg PO DAILY [facility] Last Admin: 10/04/18 09:56 Dose: 81 mg Betamethasone/Clotrimazole (Lotrisone) 0 gm TOP BID [facility] Last Admin: 10/04/18 09:57 Dose: 1 applic Carbidopa/Levodopa (Sinemet 10/100) 1 tab PO TID [facility] Last Admin: 10/04/18 13:31 Dose: 1 tab Carvedilol (Coreg) 12.5 mg PO BID [facility] Last Admin: 10/04/18 09:55 Dose: 12.5 mg Docusate Sodium (Colace) 100 mg PO TID [facility] Last Admin: 10/04/18 13:31 Dose: 100 mg Ferrous Sulfate (Feosol) 325 mg PO BID [facility] Last Admin: 10/04/18 13:34 Dose: 325 mg Finasteride (Proscar) 5 mg PO DAILY [facility] Last Admin: 10/04/18 09:55 Dose: 5 mg Furosemide (Lasix) 40 mg IVP DAILY [facility] Last Admin: 10/04/18 12:00 Dose: 40 mg Hydralazine HCl (Apresoline) 75 mg PO Q8 [facility] Last Admin: 10/04/18 13:31 Dose: 75 mg Ampicillin 1 gm/ Sodium (Chloride) 100 mls @ 100 mls/hr IVPB Q6H [facility]; Protocol Last Admin: 10/04/18 10:30 Dose: 100 mls/hr Insulin Detemir (Levemir) 10 unit SC [facility] Last Admin: 10/03/18 21:43 Dose: Not Given Insulin Human Regular (Novolin R) 0 unit SC [facility]; Protocol Last Admin: 10/04/18 11:37 Dose: Not Given Lisinopril (Zestril) 20 mg PO DAILY [facility] Last Admin: 10/04/18 09:56 Dose: 20 mg Lorazepam (Ativan) 1 mg IVP ONCE ONE Stop: 10/04/18 15:01 Quetiapine Fumarate (Seroquel) 25 mg PO BID [facility] Last Admin: 10/04/18 09:56 Dose: 25 mg Rosuvastatin Calcium (Crestor) 10 mg PO HS [facility] Last Admin: 10/03/18 21:45 Dose: 10 mg Tamsulosin HCl (Flomax) 0.4 mg PO DAILY [facility] Last Admin: 10/04/18 09:56 Dose: 0.4 mg - Labs Labs: 10/03/18 06:44 10/03/18 06:44 PT 11.6 SECONDS (9.7-12.2) 09/18/18 03:36 INR 1.1 09/18/18 03:36 APTT 62 SECONDS (21-34) H 09/18/18 03:36 Assessment and Plan - Assessment and Plan (Free Text) Assessment: A/P 83 YR OLD male with pmhx of Alzheimer's Disease, Arthritis, Asthma, CAD, CHF, Dementia, Diabetes, HTN, Hypercholesterolemia, Hyperlipidemia, Parkinson's D isease, admitted with exc. CHF blood culture positive + for listeria .Jen and Dr. Banks on consult echo - done- PACEMAKER LEAD IN RIGHT VENTRICLE THICKENED AND ECHOGENIC -POSSIBLE THROMBUS/CALCIFICATION / VEGETATION. D/w Dr. Reese, treat with [address] Mcmullen on consult D/W Dr. Mcmullen will see patient awaiting recommendations patient needs 6 weeks of antibiotics and need PICC LINE spoke to grandson jairo over the phone with security clerk and consented for picc line will place PICC line and CON for antibiotics
--- NOTE | 2018-10-04 19:09 | PN ---
DATE: 10/04/2018 SUBJECTIVE: The patient is confused today, but not agitated and does not appear to be in any respiratory distress. PHYSICAL EXAMINATION: VITAL SIGNS: Blood pressure 154/67, heart rate 64, temperature 97.4, respirations 20. HEENT: Normocephalic. CHEST: Minimal rhonchi. HEART: S1 and S2, regular. EXTREMITIES: No edema. LABORATORY DATA: Today's blood sugar is 185 and 149 respectively. 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 2. Cardiomyopathy. 3. Nonsustained ventricular tachycardia. 4. Parkinsonism. RECOMMENDATIONS: The patient should be treated for endocarditis for a full course of 6 weeks of appropriate intravenous antibiotics as per the choice of Dr. Jared Keene. In the meantime, continue Zestril 20 mg daily, Lasix 40 mg intravenously once a day, aspirin 81 mg once a day, Coreg 12.5 mg twice a day, amiodarone 200 mg once a day, and hydralazine 75 mg every 8 hours. AP consult was requested from Dr. Tirado. Grey Reese MD
[2018-10-04] MEDS: Insulin Detemir 100 units/ml Vial (Levemir) SC SCH (22:00)
--- NOTE | 2018-10-04 22:34 | CP.PCM.PN ---
Subjective - Subjective Subjective: dictated Objective - Vital Signs/Intake and Output Vital Signs (last 24 hours): Temp Pulse Resp BP Pulse Ox 98.2 F 60 20 152/61 H 97 10/04/18 15:29 10/04/18 15:29 10/04/18 15:29 10/04/18 15:29 10/04/18 15:29 Intake and Output: 10/04/18 10/05/18 18:59 06:59 Intake Total 430 250 Output Total 400 600 Balance 30 -350 - Medications Medications: Current Medications Acetaminophen (Tylenol 325mg Tab) 650 mg PO Q4 PRN PRN Reason: Fever >100.4 F Last Admin: 10/02/18 13:39 Dose: 650 mg Amiodarone HCl (Cordarone) 200 mg PO DAILY [facility] Last Admin: 10/04/18 09:56 Dose: 200 mg Aspirin (Ecotrin) 81 mg PO DAILY [facility] Last Admin: 10/04/18 09:56 Dose: 81 mg Betamethasone/Clotrimazole (Lotrisone) 0 gm TOP BID [facility] Last Admin: 10/04/18 19:05 Dose: Not Given Carbidopa/Levodopa (Sinemet 10/100) 1 tab PO TID [facility] Last Admin: 10/04/18 19:05 Dose: Not Given Carvedilol (Coreg) 12.5 mg PO BID [facility] Last Admin: 10/04/18 19:05 Dose: Not Given Docusate Sodium (Colace) 100 mg PO TID [facility] Last Admin: 10/04/18 19:00 Dose: Not Given Ferrous Sulfate (Feosol) 325 mg PO BID [facility] Last Admin: 10/04/18 19:05 Dose: Not Given Finasteride (Proscar) 5 mg PO DAILY [facility] Last Admin: 10/04/18 09:55 Dose: 5 mg Furosemide (Lasix) 40 mg IVP DAILY [facility] Last Admin: 10/04/18 12:00 Dose: 40 mg Hydralazine HCl (Apresoline) 75 mg PO Q8 [facility] Last Admin: 10/04/18 13:31 Dose: 75 mg Ampicillin 1 gm/ Sodium (Chloride) 100 mls @ 100 mls/hr IVPB Q6H [facility]; Protocol Last Admin: 10/04/18 17:15 Dose: Not Given Insulin Detemir (Levemir) 10 unit SC HS [facility] Last Admin: 10/03/18 21:43 Dose: Not Given Insulin Human Regular (Novolin R) 0 unit SC ACHS [facility]; Protocol Last Admin: 10/04/18 16:43 Dose: Not Given Lisinopril (Zestril) 20 mg PO DAILY [facility] Last Admin: 10/04/18 09:56 Dose: 20 mg Quetiapine Fumarate (Seroquel) 25 mg PO BID [facility] Last Admin: 10/04/18 09:56 Dose: 25 mg Rosuvastatin Calcium (Crestor) 10 mg PO [facility] Last Admin: 10/03/18 21:45 Dose: 10 mg Tamsulosin HCl (Flomax) 0.4 mg PO DAILY [facility] Last Admin: 10/04/18 09:56 Dose: 0.4 mg - Labs Labs: 10/03/18 06:44 10/03/18 06:44 PT 11.6 SECONDS (9.7-12.2) 09/18/18 03:36 INR 1.1 09/18/18 03:36 APTT 62 SECONDS (21-34) H 09/18/18 03:36
--- NOTE | 2018-10-05 03:36 | PN ---
DATE: 10/04/2018 SUBJECTIVE: The patient is on antibiotics for bacterial endocarditis. He is in short of breath. No chest pain. PHYSICAL EXAMINATION: VITAL SIGNS: Blood pressure 152/61, pulse 60, respiratory rate 20, temperature 98.2. LUNGS: Bilateral basal rales. CARDIOVASCULAR SYSTEM: S1 and S2 plus S3 positive. ABDOMEN: Soft, nontender. Bowel sounds are positive. ASSESSMENT: 1. Infective endocarditis. 2. Congestive heart failure exacerbation. 3. Chronic obstructive pulmonary disorder. 4. Parkinson disease. 5. Hypertension. PLAN: Antibiotics. Continue to monitor the patient. Dmitriy Lora MD
[2018-10-05] MEDS: AMPicillin 1 GM in Sodium Chloride 0.9% 100 ML IVPB SCH ×4 (04:08→22:08)
[2018-10-05] MEDS: (Novolin R) Insulin Human Regular 100 units/ml vial SC SCH ×4 (08:30→21:10)
[2018-10-05] MEDS: Clotrimazole/Betamethasone Cream(15 gm) TOP SCH ×2 (10:53→18:11)
--- NOTE | 2018-10-05 16:31 | CP.PCM.PCO ---
Physician Communication Note - Physician Communication Note Physician Communication Note: D/W VIJAY OLIVER , NO NEED TO REPLACE AICD, THICKEND IS USUSAL FOR AICD
--- NOTE | 2018-10-05 18:34 | PN ---
DATE: 10/05/2018 SUBJECTIVE: The patient is agitated, restless, and confused. Does not appear to be in respiratory distress. PHYSICAL EXAMINATION: VITAL SIGNS: Blood pressure 151/64, heart rate 72, temperature 97.1, respirations 20. HEENT: Normocephalic. CHEST: Clear. HEART: S1 and S2, regular. EXTREMITIES: No edema. LABORATORY DATA: Today's blood sugars are 183 and 224. Repeat blood cultures on 09/29/2018 were negative after 5 days. ASSESSMENT: 1. Listeria monocytogenes bacteremia. Consider endocarditis involving the implantable cardioverter defibrillator lead. 2. Nonischemic cardiomyopathy. 3. Parkinsonism. 4. Non-sustained ventricular tachycardia. RECOMMENDATIONS: Continue IV ampicillin 1 g daily. Continue hydralazine 75 mg every 8 hours, amiodarone 200 mg once a day, Coreg 12.5 mg twice a day, Crestor 10 mg once a day, aspirin 81 mg once a day, and Zestril 20 mg daily. Grey Reese MD
--- NOTE | 2018-10-05 21:57 | CP.PCM.PN ---
Subjective - Date & Time of Evaluation Date of Evaluation: 10/05/18 Time of Evaluation: 21:56 - Subjective Subjective: AFEBRILE. AWAKE. OFFERS NO COMPLAINTS. CLINICALLY SAME. ON iv AMPICILLIN. Objective - Vital Signs/Intake and Output Vital Signs (last 24 hours): Temp Pulse Resp BP Pulse Ox 97.9 F 72 20 168/70 H 100 10/05/18 07:00 10/05/18 07:00 10/05/18 07:00 10/05/18 18:01 10/05/18 07:00 Intake and Output: 10/05/18 10/06/18 18:59 06:59 Intake Total 200 Output Total 400 Balance -200 - Medications Medications: Current Medications Acetaminophen (Tylenol 325mg Tab) 650 mg PO Q4 PRN PRN Reason: Fever >100.4 F Last Admin: 10/05/18 04:48 Dose: 650 mg Amiodarone HCl (Cordarone) 200 mg PO DAILY [facility] Last Admin: 10/05/18 10:51 Dose: 200 mg Aspirin (Ecotrin) 81 mg PO DAILY [facility] Last Admin: 10/05/18 10:58 Dose: 81 mg Betamethasone/Clotrimazole (Lotrisone) 0 gm TOP BID [facility] Last Admin: 10/05/18 18:11 Dose: 1 applic Carbidopa/Levodopa (Sinemet 10/100) 1 tab PO TID [facility] Last Admin: 10/05/18 18:11 Dose: 1 tab Carvedilol (Coreg) 12.5 mg PO BID [facility] Last Admin: 10/05/18 18:01 Dose: 12.5 mg Docusate Sodium (Colace) 100 mg PO TID [facility] Last Admin: 10/05/18 18:01 Dose: 100 mg Ferrous Sulfate (Feosol) 325 mg PO BID [facility] Last Admin: 10/05/18 18:04 Dose: 325 mg Finasteride (Proscar) 5 mg PO DAILY [facility] Last Admin: 10/05/18 10:54 Dose: 5 mg Furosemide (Lasix) 40 mg IVP DAILY [facility] Last Admin: 10/05/18 13:36 Dose: 40 mg Hydralazine HCl (Apresoline) 75 mg PO Q8 [facility] Last Admin: 10/05/18 15:00 Dose: Not Given Ampicillin 1 gm/ Sodium (Chloride) 100 mls @ 100 mls/hr IVPB Q6H [facility]; Protocol Last Admin: 10/05/18 17:00 Dose: 100 mls/hr Insulin Detemir (Levemir) 10 unit SC [facility] Last Admin: 10/04/18 22:00 Dose: Not Given Insulin Human Regular (Novolin R) 0 unit SC [facility]; Protocol Last Admin: 10/05/18 21:10 Dose: Not Given Lisinopril (Zestril) 20 mg PO DAILY [facility] Last Admin: 10/05/18 10:53 Dose: 20 mg Quetiapine Fumarate (Seroquel) 25 mg PO BID [facility] Last Admin: 10/05/18 18:16 Dose: 25 mg Rosuvastatin Calcium (Crestor) 10 mg PO HS [facility] Last Admin: 10/04/18 22:00 Dose: Not Given Tamsulosin HCl (Flomax) 0.4 mg PO DAILY [facility] Last Admin: 10/05/18 10:53 Dose: 0.4 mg - Labs Labs: 10/03/18 06:44 10/03/18 06:44 PT 11.6 SECONDS (9.7-12.2) 09/18/18 03:36 INR 1.1 09/18/18 03:36 APTT 62 SECONDS (21-34) H 09/18/18 03:36 - Constitutional Appears: No Acute Distress, Cachectic, Chronically Ill - Head Exam Head Exam: NORMAL INSPECTION - Eye Exam Eye Exam: EOMI - ENT Exam ENT Exam: Normal Oropharynx - Neck Exam Neck Exam: Normal Inspection. absent: Meningismus - Respiratory Exam Respiratory Exam: Clear to Ausculation Bilateral - Cardiovascular Exam Cardiovascular Exam: REGULAR RHYTHM, +S1, +S2 - GI/Abdominal Exam GI & Abdominal Exam: Soft, Normal Bowel Sounds. absent: Organomegaly - Extremities Exam Extremities Exam: Normal Capillary Refill. absent: Calf Tenderness, Pedal Edema - Neurological Exam Neurological Exam: Alert, Awake, CN II-XII Intact - Psychiatric Exam Psychiatric exam: Normal Mood - Skin Skin Exam: Normal Color, Warm Assessment and Plan (1) Listeria infection Status: Acute (2) Acute on chronic systolic CHF (congestive heart failure) Status: Acute (3) Altered mental status Status: Acute (4) CAD (coronary artery disease) Status: Chronic (5) HTN (hypertension) Status: Chronic (6) Parkinson disease Status: Chronic (7) AICD (automatic cardioverter/defibrillator) present Status: Acute (8) Dysphagia Status: Acute - Assessment and Plan (Free Text) Plan: repeat blood cultures 09/29/18 -ve growth to date repeat URINE CULTURES -VE ESR 60. 2D ECHO REPORT NOTED. CARDIOLOGY RECOMMENDATIONS OF 10/05/18 NOTE NOTED CONTINUE IV AMPICILLIN 1 G EVERY 6 HOURLY FOR TOTAL OF 6WKS IN VIEW OF NEW FINDINGS. POLICE SURGEON DR LINARES REPORT PENDING. TO DISCUSS WITH PMD AND STAFF. IS THERE A THROMBUS/CALCIFICATION OR VEG ON THE LEAD ? AND ANY FURTHER RECOMMENDATION.
[2018-10-05] MEDS: Insulin Detemir 100 units/ml Vial (Levemir) SC SCH (22:08)
--- NOTE | 2018-10-06 00:57 | CP.PCM.PN ---
Subjective - Date & Time of Evaluation Date of Evaluation: 10/05/18 - Subjective Subjective: dictated Objective - Vital Signs/Intake and Output Vital Signs (last 24 hours): Temp Pulse Resp BP Pulse Ox 97.9 F 72 20 168/70 H 100 10/05/18 07:00 10/05/18 07:00 10/05/18 07:00 10/05/18 18:01 10/05/18 07:00 Intake and Output: 10/05/18 10/06/18 18:59 06:59 Intake Total 200 680 Output Total 400 1075 Balance -200 -395 - Medications Medications: Current Medications Acetaminophen (Tylenol 325mg Tab) 650 mg PO Q4 PRN PRN Reason: Fever >100.4 F Last Admin: 10/05/18 04:48 Dose: 650 mg Amiodarone HCl (Cordarone) 200 mg PO DAILY [facility] Last Admin: 10/05/18 10:51 Dose: 200 mg Aspirin (Ecotrin) 81 mg PO DAILY [facility] Last Admin: 10/05/18 10:58 Dose: 81 mg Betamethasone/Clotrimazole (Lotrisone) 0 gm TOP BID [facility] Last Admin: 10/05/18 18:11 Dose: 1 applic Carbidopa/Levodopa (Sinemet 10/) 1 tab PO TID [facility] Last Admin: 10/05/18 18:11 Dose: 1 tab Carvedilol (Coreg) 12.5 mg PO BID [facility] Last Admin: 10/05/18 18:01 Dose: 12.5 mg Docusate Sodium (Colace) 100 mg PO TID [facility] Last Admin: 10/05/18 18:01 Dose: 100 mg Ferrous Sulfate (Feosol) 325 mg PO BID [facility] Last Admin: 10/05/18 18:04 Dose: 325 mg Finasteride (Proscar) 5 mg PO DAILY [facility] Last Admin: 10/05/18 10:54 Dose: 5 mg Furosemide (Lasix) 40 mg IVP DAILY [facility] Last Admin: 10/05/18 13:36 Dose: 40 mg Hydralazine HCl (Apresoline) 75 mg PO Q8 [facility] Last Admin: 10/05/18 22:07 Dose: 75 mg Ampicillin 1 gm/ Sodium (Chloride) 100 mls @ 100 mls/hr IVPB Q6H [facility]; Protocol Last Admin: 10/05/18 22:08 Dose: 100 mls/hr Insulin Detemir (Levemir) 10 unit SC [facility] Last Admin: 10/05/18 22:08 Dose: 10 units Insulin Human Regular (Novolin R) 0 unit SC [facility]; Protocol Last Admin: 10/05/18 21:10 Dose: Not Given Lisinopril (Zestril) 20 mg PO DAILY [facility] Last Admin: 10/05/18 10:53 Dose: 20 mg Quetiapine Fumarate (Seroquel) 25 mg PO BID [facility] Last Admin: 10/05/18 18:16 Dose: 25 mg Rosuvastatin Calcium (Crestor) 10 mg PO [facility] Last Admin: 10/05/18 22:07 Dose: 10 mg Tamsulosin HCl (Flomax) 0.4 mg PO DAILY [facility] Last Admin: 10/05/18 10:53 Dose: 0.4 mg - Labs Labs: 10/03/18 06:44 10/03/18 06:44 PT 11.6 SECONDS (9.7-12.2) 09/18/18 03:36 INR 1.1 09/18/18 03:36 APTT 62 SECONDS (21-34) H 09/18/18 03:36
--- NOTE | 2018-10-06 03:34 | PN ---
DATE: 10/06/2018 SUBJECTIVE: Rai Ruggiero is on antibiotics for infective endocarditis. He denies any nausea or vomiting. He is confused, and he is for possible subacute rehab. PHYSICAL EXAMINATION: VITAL SIGNS: Blood pressure 170/82, pulse 74, respiratory rate 16, temperature 98. LUNGS: Clear. CARDIOVASCULAR SYSTEM: S1 and S2 plus S3 positive. ABDOMEN: Soft. ASSESSMENT: 1. Congestive heart failure with intraventricular thrombus. 2. Infective endocarditis. 3. Hypertension. 4. Diabetes. 5. Alzheimer. PLAN: Continue IV antibiotics. Monitor the patient. Dmitriy Lora MD
[2018-10-06] MEDS: AMPicillin 1 GM in Sodium Chloride 0.9% 100 ML IVPB SCH ×4 (04:11→21:49)
[2018-10-06] MEDS: (Novolin R) Insulin Human Regular 100 units/ml vial SC SCH ×4 (07:36→21:21)
[2018-10-06] MEDS: Clotrimazole/Betamethasone Cream(15 gm) TOP SCH ×2 (10:37→17:51)
--- NOTE | 2018-10-06 16:31 | PN ---
DATE: 10/06/2018 SUBJECTIVE: The patient is confused, restless, and refuses to take his medications. He is on one-to-one watch. PHYSICAL EXAMINATION: VITAL SIGNS: Blood pressure 182/55, heart rate 60, temperature 97.7, and respirations 20. HEENT: Normocephalic. CHEST: Clear. HEART: S1 and S2 regular. EXTREMITIES: No edema. LABORATORY DATA: Today's blood sugar is . ASSESSMENT: 1. Altered mental status. 2. Nonischemic cardiomyopathy. 3. Infective endocarditis involving the implantable cardioverter defibrillator lead. 4. Parkinsonism. RECOMMENDATIONS: Continue ampicillin 1 g every 6 hours and Coreg 12.5 mg twice a day if the patient allows for oral medication. The patient may require IM Haldol or IV Ativan at one point. Grey Reese MD
[2018-10-06] MEDS: Insulin Detemir 100 units/ml Vial (Levemir) SC SCH (21:51)
--- NOTE | 2018-10-06 22:13 | CP.PCM.PN ---
Subjective - Date & Time of Evaluation Date of Evaluation: 10/06/18 Time of Evaluation: 22:13 - Subjective Subjective: AFEBRILE. AWAKE. OFFERS NO COMPLAINTS. CLINICALLY SAME. ON iv AMPICILLIN since 09/28/18- 9th day pt also received iv ampicillin x 10days prior to that. SMOKE ROOM OPERATOR MAYANK REMARKS WITH EP- DR LINARES NOTED . WILL TREAT LEAD INFECTION/ENDOCARDITIS PER DR LAZARO (HEALTH TEACHER ) SO CONTINUE RX X 3 WKS MORE TO COMPLETE TOTAL OF 6WKS RX. Objective - Vital Signs/Intake and Output Vital Signs (last 24 hours): Temp Pulse Resp BP Pulse Ox 98.9 F 72 20 158/72 H 96 10/06/18 15:00 10/06/18 15:00 10/06/18 15:00 10/06/18 17:52 10/06/18 15:00 Intake and Output: 10/06/18 10/07/18 18:59 06:59 Intake Total 500 Output Total 1650 Balance -1150 - Medications Medications: Current Medications Acetaminophen (Tylenol 325mg Tab) 650 mg PO Q4 PRN PRN Reason: Fever >100.4 F Last Admin: 10/05/18 04:48 Dose: 650 mg Amiodarone HCl (Cordarone) 200 mg PO DAILY [facility] Last Admin: 10/06/18 10:52 Dose: Not Given Aspirin (Ecotrin) 81 mg PO DAILY [facility] Last Admin: 10/06/18 10:52 Dose: Not Given Betamethasone/Clotrimazole (Lotrisone) 0 gm TOP BID [facility] Last Admin: 10/06/18 17:51 Dose: 1 applic Carbidopa/Levodopa (Sinemet 10/100) 1 tab PO TID [facility] Last Admin: 10/06/18 17:51 Dose: 1 tab Carvedilol (Coreg) 12.5 mg PO BID [facility] Last Admin: 10/06/18 17:52 Dose: 12.5 mg Docusate Sodium (Colace) 100 mg PO TID [facility] Last Admin: 10/06/18 17:51 Dose: 100 mg Ferrous Sulfate (Feosol) 325 mg PO BID [facility] Last Admin: 10/06/18 17:51 Dose: 325 mg Finasteride (Proscar) 5 mg PO DAILY [facility] Last Admin: 10/06/18 10:52 Dose: Not Given Furosemide (Lasix) 40 mg IVP DAILY [facility] Last Admin: 10/06/18 10:36 Dose: 40 mg Hydralazine HCl (Apresoline) 75 mg PO Q8 [facility] Last Admin: 10/06/18 21:51 Dose: 75 mg Ampicillin 1 gm/ Sodium (Chloride) 100 mls @ 100 mls/hr IVPB Q6H [facility]; Protocol Last Admin: 10/06/18 21:49 Dose: 100 mls/hr Insulin Detemir (Levemir) 10 unit SC [facility] Last Admin: 10/06/18 21:51 Dose: 10 units Insulin Human Regular (Novolin R) 0 unit SC [facility]; Protocol Last Admin: 10/06/18 21:21 Dose: Not Given Lisinopril (Zestril) 20 mg PO DAILY [facility] Last Admin: 10/06/18 10:52 Dose: Not Given Quetiapine Fumarate (Seroquel) 25 mg PO BID [facility] Last Admin: 10/06/18 17:51 Dose: 25 mg Rosuvastatin Calcium (Crestor) 10 mg PO [facility] Last Admin: 10/06/18 21:51 Dose: 10 mg Tamsulosin HCl (Flomax) 0.4 mg PO DAILY [facility] Last Admin: 10/06/18 10:52 Dose: Not Given - Labs Labs: 10/03/18 06:44 10/03/18 06:44 PT 11.6 SECONDS (9.7-12.2) 09/18/18 03:36 INR 1.1 09/18/18 03:36 APTT 62 SECONDS (21-34) H 09/18/18 03:36 - Constitutional Appears: No Acute Distress, Cachectic, Chronically Ill - Head Exam Head Exam: NORMAL INSPECTION - Eye Exam Eye Exam: EOMI, PERRL - ENT Exam ENT Exam: Normal Oropharynx - Neck Exam Neck Exam: Normal Inspection. absent: Meningismus - Respiratory Exam Respiratory Exam: Decreased Breath Sounds - Cardiovascular Exam Cardiovascular Exam: Irregular Rhythm, +S1, +S2 - GI/Abdominal Exam GI & Abdominal Exam: Soft, Normal Bowel Sounds. absent: Tenderness - Extremities Exam Extremities Exam: Normal Capillary Refill. absent: Calf Tenderness, Pedal Edema - Neurological Exam Neurological Exam: Alert, Awake, CN II-XII Intact - Psychiatric Exam Psychiatric exam: Normal Mood - Skin Skin Exam: Normal Color, Warm Assessment and Plan (1) Listeria infection Status: Acute (2) Acute on chronic systolic CHF (congestive heart failure) Status: Acute (3) Altered mental status Status: Acute (4) CAD (coronary artery disease) Status: Chronic (5) HTN (hypertension) Status: Chronic (6) Parkinson disease Status: Chronic (7) AICD (automatic cardioverter/defibrillator) present Status: Acute (8) Dysphagia Status: Acute - Assessment and Plan (Free Text) Plan: ON iv AMPICILLIN since 09/28/18- 9 day pt also received iv ampicillin x 10days prior to that. GEE TALLEY REMARKS WITH EP- DR LINARES NOTED . WILL TREAT LEAD INFECTION/ENDOCARDITIS PER DR LAZARO (HEALTH TEACHER ) SO CONTINUE RX X 3 WKS MORE TO COMPLETE TOTAL OF 6WKS RX. CASE DISCUSSED WITH STAFF AT [facility]. 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
--- NOTE | 2018-10-06 23:54 | CP.PCM.PN ---
Subjective - Subjective Subjective: dictatedq Objective - Vital Signs/Intake and Output Vital Signs (last 24 hours): Temp Pulse Resp BP Pulse Ox 98.9 F 72 20 158/72 H 96 10/06/18 15:00 10/06/18 15:00 10/06/18 15:00 10/06/18 17:52 10/06/18 15:00 Intake and Output: 10/06/18 10/07/18 18:59 06:59 Intake Total 500 Output Total 1650 900 Balance -1150 -900 - Medications Medications: Current Medications Acetaminophen (Tylenol 325mg Tab) 650 mg PO Q4 PRN PRN Reason: Fever >100.4 F Last Admin: 10/05/18 04:48 Dose: 650 mg Amiodarone HCl (Cordarone) 200 mg PO DAILY [facility] Last Admin: 10/06/18 10:52 Dose: Not Given Aspirin (Ecotrin) 81 mg PO DAILY [facility] Last Admin: 10/06/18 10:52 Dose: Not Given Betamethasone/Clotrimazole (Lotrisone) 0 gm TOP BID [facility] Last Admin: 10/06/18 17:51 Dose: 1 applic Carbidopa/Levodopa (Sinemet 10/100) 1 tab PO TID [facility] Last Admin: 10/06/18 17:51 Dose: 1 tab Carvedilol (Coreg) 12.5 mg PO BID [facility] Last Admin: 10/06/18 17:52 Dose: 12.5 mg Docusate Sodium (Colace) 100 mg PO TID [facility] Last Admin: 10/06/18 17:51 Dose: 100 mg Ferrous Sulfate (Feosol) 325 mg PO BID [facility] Last Admin: 10/06/18 17:51 Dose: 325 mg Finasteride (Proscar) 5 mg PO DAILY [facility] Last Admin: 10/06/18 10:52 Dose: Not Given Furosemide (Lasix) 40 mg IVP DAILY [facility] Last Admin: 10/06/18 10:36 Dose: 40 mg Hydralazine HCl (Apresoline) 75 mg PO Q8 [facility] Last Admin: 10/06/18 21:51 Dose: 75 mg Ampicillin 1 gm/ Sodium (Chloride) 100 mls @ 100 mls/hr IVPB Q6H [facility]; Protocol Last Admin: 10/06/18 21:49 Dose: 100 mls/hr Insulin Detemir (Levemir) 10 unit SC [facility] Last Admin: 10/06/18 21:51 Dose: 10 units Insulin Human Regular (Novolin R) 0 unit SC [facility]; Protocol Last Admin: 10/06/18 21:21 Dose: Not Given Lisinopril (Zestril) 20 mg PO DAILY [facility] Last Admin: 10/06/18 10:52 Dose: Not Given Quetiapine Fumarate (Seroquel) 25 mg PO BID [facility] Last Admin: 10/06/18 17:51 Dose: 25 mg Rosuvastatin Calcium (Crestor) 10 mg PO [facility] Last Admin: 10/06/18 21:51 Dose: 10 mg Tamsulosin HCl (Flomax) 0.4 mg PO DAILY [facility] Last Admin: 10/06/18 10:52 Dose: Not Given - Labs Labs: 10/03/18 06:44 10/03/18 06:44 PT 11.6 SECONDS (9.7-12.2) 09/18/18 03:36 INR 1.1 09/18/18 03:36 APTT 62 SECONDS (21-34) H 09/18/18 03:36
--- NOTE | 2018-10-07 01:36 | PN ---
DATE: 10/06/2018 SUBJECTIVE: Rai Ruggiero has no changes. No fever. No chills. On antibiotics for infective endocarditis. PHYSICAL EXAMINATION: VITAL SIGNS: Blood pressure 167/59, pulse 72, respiratory rate 20, temperature 98.9. LUNGS: Bilaterally clear. CARDIOVASCULAR SYSTEM: S1 and S2 are regular. ABDOMEN: Soft. ASSESSMENT: 1. Poorly controlled hypertension. 2. Alzheimer. 3. Infective endocarditis. 4. Type 2 diabetes. PLAN: Continue antibiotics. Monitor the patient. Dmitriy Lora MD
[2018-10-07] MEDS: AMPicillin 1 GM in Sodium Chloride 0.9% 100 ML IVPB SCH ×4 (03:50→21:37)
[2018-10-07] MEDS: (Novolin R) Insulin Human Regular 100 units/ml vial SC SCH ×4 (07:26→21:12)
[2018-10-07] MEDS: Clotrimazole/Betamethasone Cream(15 gm) TOP SCH ×2 (10:09→17:41)
--- NOTE | 2018-10-07 14:25 | PN ---
DATE: 10/07/2018 SUBJECTIVE: The patient is still confused, restless, and refuses to take his medications. He does not appear to be in respiratory distress. PHYSICAL EXAMINATION: VITAL SIGNS: Blood pressure 164/55, heart rate 60 , temperature 98, respirations 20. HEENT: Normocephalic. CHEST: Clear. HEART: S1 and S2 regular. EXTREMITIES: No edema. LABORATORY DATA: Today's blood sugar is 92. ASSESSMENT: 1. Altered mental status. 2. Nonischemic cardiomyopathy,status post implantable cardioverter defibrillator placement. 3. 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 4. Parkinsonism. RECOMMENDATIONS: Continue IV ampicillin 1 g every 6 hours and resume oral meds once the patient is cooperative otherwise administer Haldol 1 mg every 6 hours p.r.n. Grey Reese MD
--- NOTE | 2018-10-07 14:50 | CP.PCM.PN ---
Subjective - Date & Time of Evaluation Date of Evaluation: 10/07/18 Time of Evaluation: 14:50 - Subjective Subjective: AFEBRILE. AWAKE. OFFERS NO COMPLAINTS. CLINICALLY SAME. PN IV ABX Objective - Vital Signs/Intake and Output Vital Signs (last 24 hours): Temp Pulse Resp BP Pulse Ox 98 F 60 20 164/55 H 98 10/07/18 07:00 10/07/18 10:00 10/07/18 07:00 10/07/18 10:00 10/07/18 07:00 Intake and Output: 10/07/18 10/07/18 06:59 18:59 Intake Total 420 Output Total 1600 750 Balance -1600 -330 - Medications Medications: Current Medications Acetaminophen (Tylenol 325mg Tab) 650 mg PO Q4 PRN PRN Reason: Fever >100.4 F Last Admin: 10/05/18 04:48 Dose: 650 mg Amiodarone HCl (Cordarone) 200 mg PO DAILY [facility] Last Admin: 10/07/18 10:08 Dose: Not Given Aspirin (Ecotrin) 81 mg PO DAILY [facility] Last Admin: 10/07/18 10:08 Dose: Not Given Betamethasone/Clotrimazole (Lotrisone) 0 gm TOP BID [facility] Last Admin: 10/07/18 10:09 Dose: Not Given Carbidopa/Levodopa (Sinemet 10/100) 1 tab PO TID [facility] Last Admin: 10/07/18 13:41 Dose: Not Given Carvedilol (Coreg) 12.5 mg PO BID [facility] Last Admin: 10/07/18 10:08 Dose: Not Given Docusate Sodium (Colace) 100 mg PO TID [facility] Last Admin: 10/07/18 13:41 Dose: Not Given Ferrous Sulfate (Feosol) 325 mg PO BID [facility] Last Admin: 10/07/18 10:08 Dose: Not Given Finasteride (Proscar) 5 mg PO DAILY [facility] Last Admin: 10/07/18 10:09 Dose: Not Given Furosemide (Lasix) 40 mg IVP DAILY [facility] Last Admin: 10/07/18 10:09 Dose: Not Given Hydralazine HCl (Apresoline) 75 mg PO Q8 [facility] Last Admin: 10/07/18 13:41 Dose: Not Given Ampicillin 1 gm/ Sodium (Chloride) 100 mls @ 100 mls/hr IVPB Q6H [facility]; Protocol Last Admin: 10/07/18 10:08 Dose: Not Given Insulin Detemir (Levemir) 10 unit SC [facility] Last Admin: 10/06/18 21:51 Dose: 10 units Insulin Human Regular (Novolin R) 0 unit SC [facility]; Protocol Last Admin: 10/07/18 12:09 Dose: Not Given Lisinopril (Zestril) 20 mg PO DAILY [facility] Last Admin: 10/07/18 10:09 Dose: Not Given Quetiapine Fumarate (Seroquel) 25 mg PO BID [facility] Last Admin: 10/07/18 10:09 Dose: Not Given Rosuvastatin Calcium (Crestor) 10 mg PO HS [facility] Last Admin: 10/06/18 21:51 Dose: 10 mg Tamsulosin HCl (Flomax) 0.4 mg PO DAILY [facility] Last Admin: 10/07/18 10:08 Dose: Not Given - Labs Labs: 10/03/18 06:44 10/03/18 06:44 PT 11.6 SECONDS (9.7-12.2) 09/18/18 03:36 INR 1.1 09/18/18 03:36 APTT 62 SECONDS (21-34) H 09/18/18 03:36 - Constitutional Appears: No Acute Distress, Cachectic, Chronically Ill - Head Exam Head Exam: NORMAL INSPECTION - Eye Exam Eye Exam: EOMI, PERRL - ENT Exam ENT Exam: Normal Oropharynx - Neck Exam Neck Exam: Normal Inspection - Respiratory Exam Respiratory Exam: Decreased Breath Sounds - Cardiovascular Exam Cardiovascular Exam: Irregular Rhythm, +S1, +S2 - GI/Abdominal Exam GI & Abdominal Exam: Soft, Normal Bowel Sounds - Extremities Exam Extremities Exam: Normal Capillary Refill, Pedal Edema (1+). absent: Calf Tenderness - Neurological Exam Neurological Exam: Awake, CN II-XII Intact - Psychiatric Exam Psychiatric exam: Normal Mood - Skin Skin Exam: Normal Color, Warm Assessment and Plan (1) Listeria infection Status: Acute (2) Acute on chronic systolic CHF (congestive heart failure) Status: Acute (3) Altered mental status Status: Acute (4) CAD (coronary artery disease) Status: Chronic (5) HTN (hypertension) Status: Chronic (6) Parkinson disease Status: Chronic (7) AICD (automatic cardioverter/defibrillator) present Status: Acute (8) Dysphagia Status: Acute - Assessment and Plan (Free Text) Plan: WILL TREAT LEAD INFECTION/ENDOCARDITIS PER DR LAZARO (DATA SCIENTIST ) SO CONTINUE RX X 3 WKS MORE TO COMPLETE TOTAL OF 6WKS RX. CASE DISCUSSED WITH STAFF AT [facility]. /AND GARMENT TURNER MS TALLEY.
--- NOTE | 2018-10-07 20:21 | CP.PCM.PN ---
Subjective - Subjective Subjective: dictated Objective - Vital Signs/Intake and Output Vital Signs (last 24 hours): Temp Pulse Resp BP Pulse Ox 97.8 F 73 20 170/80 H 96 10/07/18 15:15 10/07/18 15:15 10/07/18 15:15 10/07/18 17:42 10/07/18 15:15 Intake and Output: 10/07/18 10/08/18 18:59 06:59 Intake Total 420 Output Total 750 Balance -330 - Medications Medications: Current Medications Acetaminophen (Tylenol 325mg Tab) 650 mg PO Q4 PRN PRN Reason: Fever >100.4 F Last Admin: 10/05/18 04:48 Dose: 650 mg Amiodarone HCl (Cordarone) 200 mg PO DAILY [facility] Last Admin: 10/07/18 10:08 Dose: Not Given Aspirin (Ecotrin) 81 mg PO DAILY [facility] Last Admin: 10/07/18 10:08 Dose: Not Given Betamethasone/Clotrimazole (Lotrisone) 0 gm TOP BID [facility] Last Admin: 10/07/18 17:41 Dose: 1 applic Carbidopa/Levodopa (Sinemet 10/100) 1 tab PO TID [facility] Last Admin: 10/07/18 17:41 Dose: 1 tab Carvedilol (Coreg) 12.5 mg PO BID [facility] Last Admin: 10/07/18 17:42 Dose: 12.5 mg Docusate Sodium (Colace) 100 mg PO TID [facility] Last Admin: 10/07/18 17:41 Dose: 100 mg Ferrous Sulfate (Feosol) 325 mg PO BID [facility] Last Admin: 10/07/18 17:41 Dose: 325 mg Finasteride (Proscar) 5 mg PO DAILY [facility] Last Admin: 10/07/18 10:09 Dose: Not Given Furosemide (Lasix) 40 mg IVP DAILY [facility] Last Admin: 10/07/18 10:09 Dose: Not Given Hydralazine HCl (Apresoline) 75 mg PO Q8 [facility] Last Admin: 10/07/18 13:41 Dose: Not Given Ampicillin 1 gm/ Sodium (Chloride) 100 mls @ 100 mls/hr IVPB Q6H [facility]; Protocol Last Admin: 10/07/18 17:30 Dose: 100 mls/hr Insulin Detemir (Levemir) 10 unit SC [facility] Last Admin: 10/06/18 21:51 Dose: 10 units Insulin Human Regular (Novolin R) 0 unit SC [facility]; Protocol Last Admin: 10/07/18 17:24 Dose: Not Given Lisinopril (Zestril) 20 mg PO DAILY [facility] Last Admin: 10/07/18 10:09 Dose: Not Given Quetiapine Fumarate (Seroquel) 25 mg PO BID [facility] Last Admin: 10/07/18 17:41 Dose: 25 mg Rosuvastatin Calcium (Crestor) 10 mg PO [facility] Last Admin: 10/06/18 21:51 Dose: 10 mg Tamsulosin HCl (Flomax) 0.4 mg PO DAILY [facility] Last Admin: 10/07/18 10:08 Dose: Not Given - Labs Labs: 10/03/18 06:44 10/03/18 06:44 PT 11.6 SECONDS (9.7-12.2) 09/18/18 03:36 INR 1.1 09/18/18 03:36 APTT 62 SECONDS (21-34) H 09/18/18 03:36
[2018-10-07] MEDS: Insulin Detemir 100 units/ml Vial (Levemir) SC SCH (21:36)
--- NOTE | 2018-10-08 01:41 | PN ---
DATE: 10/07/2018 SUBJECTIVE: Rai Ruggiero is feeling better. He is alert. He is agitated, restless, uncooperative. He on exam. No fever. No chills. The patient is on antibiotic infective endocarditis, on ampicillin. PHYSICAL EXAMINATION VITAL SIGNS: Blood pressure 184/75, pulse 73, respiratory rate 20, temperature 97.8. LUNGS: Bilateral rhonchi. Bilateral rales. CARDIOVASCULAR SYSTEM: S1 and S2 plus II/ systolic murmur at the aortic area. ABDOMEN: Soft. Nontender. Bowel sounds are positive. ASSESSMENT: 1. Alzheimer's, advanced. 2. Congestive heart failure. 3. Poorly controlled hypertension. The patient is refusing oral medication. 4. Type 2 diabetes. PLAN: Continue current medication. Monitor the patient. Dmitriy Lora MD
[2018-10-08] MEDS: AMPicillin 1 GM in Sodium Chloride 0.9% 100 ML IVPB SCH ×4 (05:15→22:49)
[2018-10-08] MEDS: Nitroglycerin 2% Ointment Foilpak UD TOP SCH ×2 (05:19)
[2018-10-08] MEDS: (Novolin R) Insulin Human Regular 100 units/ml vial SC SCH ×4 (07:37→21:13)
[2018-10-08] MEDS: Clotrimazole/Betamethasone Cream(15 gm) TOP SCH ×2 (10:31→18:38)
[2018-10-08 11:21] LABS: BASO % 0.4 % (0.0-2.0); EOS # 0.1 K/uL (0.0-0.7); EOS % 1.4 % (0.0-4.0); HEMOGLOBIN 11.6 g/dL (12.0-18.0); LYMPH # 1.6 K/uL (1.0-4.3); LYMPH % 19.1 % (20.0-40.0); MEAN CELL VOLUME 80.1 fL (80.0-94.0); MEAN CORPUSCULAR HEMOGLOBIN 26.7 pg (27.0-31.0); MEAN CORPUSCULAR HGB CONC 33.4 g/dL (33.0-37.0); MEAN PLATELET VOLUME 8.6 fL (7.2-11.7); MONO # 0.8 K/uL (0.0-0.8); NEUT % 70.1 % (50.0-75.0); RBC 4.36 Mil/uL (4.40-5.90); RED CELL DISTRIBUTION WIDTH 16.5 % (11.5-14.5); WHITE BLOOD COUNT 8.5 K/uL (4.8-10.8)
[2018-10-08 11:32] LABS: CALCIUM 8.7 mg/dl (8.6-10.4)
--- NOTE | 2018-10-08 16:16 | PN ---
DATE: 10/08/2018 SUBJECTIVE: The patient is restless, uncooperative. He took his medications today, but does not appear to be in any respiratory distress. PHYSICAL EXAMINATION: VITAL SIGNS: Blood pressure 144/58, heart rate 60, temperature 97.8. HEENT: Normocephalic. CHEST: Clear. HEART: S1 and S2 regular. EXTREMITIES: No edema. LABORATORY DATA: Today's blood sugar is 137. ASSESSMENT: 1. Nonischemic cardiomyopathy, status post implantable cardioverter defibrillator placement. 2. 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 3. Altered mental status. 4. Parkinsonism. 5. Nonsustained ventricular tachycardia. RECOMMENDATIONS: Continue IV ampicillin 1 g every 6 hours, hydralazine 75 mg every 8 hours, amiodarone 200 mg daily, Coreg 12.5 mg twice a day, aspirin 81 mg once a day, Crestor 10 mg once a day, Lasix 40 mg intravenously daily, Sinemet one tablet t.i.d., and Restoril 20 mg daily. Grey Reese MD
--- NOTE | 2018-10-08 21:45 | CP.PCM.PN ---
Subjective - Subjective Subjective: dciated Objective - Vital Signs/Intake and Output Vital Signs (last 24 hours): Temp Pulse Resp BP Pulse Ox 97.9 F 84 18 138/53 L 99 10/08/18 16:00 10/08/18 16:00 10/08/18 16:00 10/08/18 18:39 10/08/18 16:00 Intake and Output: 10/08/18 10/09/18 18:59 06:59 Intake Total 500 Output Total 850 Balance -350 - Medications Medications: Current Medications Acetaminophen (Tylenol 325mg Tab) 650 mg PO Q4 PRN PRN Reason: Fever >100.4 F Last Admin: 10/05/18 04:48 Dose: 650 mg Amiodarone HCl (Cordarone) [address] [facility] Last Admin: 10/08/18 10:03 Dose: 200 mg Aspirin (Ecotrin) [address] [facility] Last Admin: 10/08/18 10:03 Dose: 81 mg Betamethasone/Clotrimazole (Lotrisone) [address] [facility] Last Admin: 10/08/18 18:38 Dose: 1 applic Carbidopa/Levodopa (Sinemet 10/100) [address] [facility] Last Admin: 10/08/18 18:39 Dose: 1 tab Carvedilol (Coreg) 12.[address] [facility] Last Admin: 10/08/18 18:39 Dose: 12.5 mg Docusate Sodium (Colace) [address] [facility] Last Admin: 10/08/18 18:39 Dose: 100 mg Ferrous Sulfate (Feosol) [address] [facility] Last Admin: 10/08/18 18:40 Dose: 325 mg Finasteride (Proscar) [address] [facility] Last Admin: 10/08/18 10:03 Dose: 5 mg Furosemide (Lasix) [address] [facility] Last Admin: 10/08/18 10:02 Dose: 40 mg Hydralazine HCl (Apresoline) [address] [facility] Last Admin: 10/08/18 13:42 Dose: Not Given Ampicillin 1 gm/ Sodium (Chloride) 100 mls @ 100 mls/hr IVPB Q6H [facility]; Protocol Last Admin: 10/08/18 17:30 Dose: 100 mls/hr Insulin Detemir (Levemir) [address] [facility] Last Admin: 10/07/18 21:36 Dose: 10 units Insulin Human Regular (Novolin R) [address] [facility]; Protocol Last Admin: 10/08/18 21:13 Dose: Not Given Lisinopril (Zestril) [address] [facility] Last Admin: 10/08/18 10:03 Dose: 20 mg Rosuvastatin Calcium (Crestor) [address] [facility] Last Admin: 10/07/18 21:36 Dose: 10 mg Tamsulosin HCl (Flomax) 0.[address] [facility] Last Admin: 10/08/18 10:03 Dose: 0.4 mg - Labs Labs: 10/08/18 11:09 10/08/18 11:09 PT 11.6 SECONDS (9.7-12.2) 09/18/18 03:36 INR 1.1 09/18/18 03:36 APTT 62 SECONDS (21-34) H 09/18/18 03:36
[2018-10-08] MEDS: Insulin Detemir 100 units/ml Vial (Levemir) SC SCH (22:51)
[2018-10-08 22:54] VITALS: RESP 20
--- NOTE | 2018-10-09 03:16 | PN ---
DATE: 10/08/2018 SUBJECTIVE: Bahman is afebrile. No shortness of breath. No chest pain. No nausea or vomiting. PHYSICAL EXAMINATION: VITAL SIGNS: Blood pressure 138/54, pulse 84, respiratory rate 18, and temperature 97.9. LUNGS: Clear. No rale. No rhonchi. CARDIOVASCULAR SYSTEM: S1, S2 regular. ABDOMEN: Soft. ASSESSMENT: 1. Congestive heart failure. 2. Type 2 diabetes. 3. Hypertension. 4. Alzheimer's. 5. Infective endocarditis. PLAN: Continue IV ampicillin. Dmitriy Lora MD
[2018-10-09] MEDS: AMPicillin 1 GM in Sodium Chloride 0.9% 100 ML IVPB SCH ×4 (04:16→22:15)
[2018-10-09] MEDS: (Novolin R) Insulin Human Regular 100 units/ml vial SC SCH ×5 (05:15→22:16)
[2018-10-09] MEDS: Clotrimazole/Betamethasone Cream(15 gm) TOP SCH ×2 (09:42→17:49)
[2018-10-09] MEDS ORDERED: Lidocaine 1% 20 MG/2 ML PF AMP ONE (10:40)
[2018-10-09] MEDS ORDERED: Lidocaine Hydrochloride 10 ML INJ ONE (10:42)
--- NOTE | 2018-10-09 12:36 | PCM.SURG1 ---
Surgeon's Initial Post Op Note - Surgeon's Notes Surgeon: Adryan Dodge MD Lint Cleaner: NONE Type of Anesthesia: Local Pre-Operative Diagnosis: Poor venous access Operative Findings: US showed patent right brachial vein Post-Operative Diagnosis: Poor venous access Operation Performed: Single lumen picc right arm, 39 cm. Specimen/Specimens Removed: None Estimated Blood Loss: EBL {In ML}: 2 Blood Products Given: N/A Drains Used: No Drains Post-Op Condition: Fair Date of Surgery/Procedure: 10/09/18 Time of Surgery/Procedure: 10:30
--- NOTE | 2018-10-09 14:04 | CP.PCM.PN ---
Subjective - Date & Time of Evaluation Date of Evaluation: 10/09/18 Time of Evaluation: 14:04 - Subjective Subjective: AFEBRILE. AWAKE. OFFERS NO COMPLAINTS. CLINICALLY SAME. ON IV ABX Objective - Vital Signs/Intake and Output Vital Signs (last 24 hours): Temp Pulse Resp BP Pulse Ox 97.7 F 72 20 148/58 L 96 10/09/18 07:10 10/09/18 07:10 10/09/18 07:10 10/09/18 09:42 10/09/18 07:10 Intake and Output: 10/09/18 10/09/18 06:59 18:59 Intake Total 350 Output Total 900 Balance -550 - Medications Medications: Current Medications Acetaminophen (Tylenol 325mg Tab) 650 mg PO Q4 PRN PRN Reason: Fever >100.4 F Last Admin: 10/05/18 04:48 Dose: 650 mg Amiodarone HCl (Cordarone) 200 mg PO DAILY [facility] Last Admin: 10/09/18 09:42 Dose: 200 mg Aspirin (Ecotrin) 81 mg PO DAILY [facility] Last Admin: 10/09/18 09:41 Dose: 81 mg Betamethasone/Clotrimazole (Lotrisone) 0 gm TOP BID [facility] Last Admin: 10/09/18 09:42 Dose: 1 applic Carbidopa/Levodopa (Sinemet 10/100) 1 tab PO TID [facility] Last Admin: 10/09/18 13:07 Dose: Not Given Carvedilol (Coreg) 12.5 mg PO BID [facility] Last Admin: 10/09/18 09:41 Dose: 12.5 mg Docusate Sodium (Colace) 100 mg PO TID [facility] Last Admin: 10/09/18 13:06 Dose: Not Given Ferrous Sulfate (Feosol) 325 mg PO BID [facility] Last Admin: 10/09/18 10:02 Dose: 325 mg Finasteride (Proscar) 5 mg PO DAILY [facility] Last Admin: 10/09/18 09:41 Dose: 5 mg Furosemide (Lasix) 40 mg IVP DAILY [facility] Last Admin: 10/09/18 09:42 Dose: 40 mg Hydralazine HCl (Apresoline) 75 mg PO Q8 [facility] Last Admin: 10/09/18 13:06 Dose: 75 mg Ampicillin 1 gm/ Sodium (Chloride) 100 mls @ 100 mls/hr IVPB Q6H [facility]; Protocol Last Admin: 10/09/18 09:42 Dose: 100 mls/hr Insulin Detemir (Levemir) 10 unit SC HS [facility] Last Admin: 10/08/18 22:51 Dose: 10 units Insulin Human Regular (Novolin R) 0 unit SC ACHS [facility]; Protocol Last Admin: 10/09/18 13:15 Dose: Not Given Lisinopril (Zestril) 20 mg PO DAILY [facility] Last Admin: 10/09/18 09:41 Dose: 20 mg Rosuvastatin Calcium (Crestor) 10 mg PO HS [facility] Last Admin: 10/08/18 22:52 Dose: 10 mg Tamsulosin HCl (Flomax) 0.4 mg PO DAILY [facility] Last Admin: 10/09/18 09:41 Dose: 0.4 mg - Labs Labs: 10/08/18 11:09 10/08/18 11:09 PT 11.6 SECONDS (9.7-12.2) 09/18/18 03:36 INR 1.1 09/18/18 03:36 APTT 62 SECONDS (21-34) H 09/18/18 03:36 Assessment and Plan (1) Listeria infection Status: Acute (2) Acute on chronic systolic CHF (congestive heart failure) Status: Acute (3) Altered mental status Status: Acute (4) CAD (coronary artery disease) Status: Chronic (5) HTN (hypertension) Status: Chronic (6) Parkinson disease Status: Chronic (7) AICD (automatic cardioverter/defibrillator) present Status: Acute (8) Dysphagia Status: Acute - Assessment and Plan (Free Text) Plan: CONTINUE RX X 3 WKS MORE TO COMPLETE TOTAL OF 6WKS RX. CASE DISCUSSED WITH STAFF AT [facility]. /AND [facility]. PLEASE RECALL IF NEEDED. WILL SIGN OFF.
--- NOTE | 2018-10-09 15:03 | PN ---
DATE: 10/09/2018 SUBJECTIVE: The patient is just confused but not agitated. He just underwent PICC line placement in the rn labor delivery. He has been hemodynamically stable and is in sinus rhythm. PHYSICAL EXAMINATION: VITAL SIGNS: Blood pressure 144/58, heart rate 72, temperature 97.7, respiration 20. HEENT: [place] conjunctivae. CHEST: Clear. HEART: S1 and S2 regular. EXTREMITIES: No edema. 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 The repeat blood cultures on 09/29/2018 are negative after five days. 2. Nonischemic cardiomyopathy. 3. Non-sustained ventricular tachycardia. 4. Uncontrolled diabetes mellitus. RECOMMENDATIONS: Continue current IV ampicillin at 1 g every 6 hours. Continue hydralazine 75 mg every 8 hours, amiodarone 200 mg daily, Coreg 12.5 mg twice a day, aspirin 81 mg once a day, Crestor 10 mg once a day, Lasix 40 mg intravenously once a day, Zestril at 20 mg once a day. Grey Reese MD
--- NOTE | 2018-10-09 18:19 | PCM.HF ---
Heart Failure Core Measure DEMARCO Inhibitor Prescribed: Yes Beta-Lay Prescribed: Carvedilol
--- NOTE | 2018-10-09 18:22 | CP.PCM.PN ---
Objective - Vital Signs/Intake and Output Vital Signs (last 24 hours): Temp Pulse Resp BP Pulse Ox 97.1 F L 61 20 137/53 L 96 10/09/18 15:00 10/09/18 15:00 10/09/18 15:00 10/09/18 17:48 10/09/18 15:00 Intake and Output: 10/09/18 10/09/18 06:59 18:59 Intake Total 350 1220 Output Total 900 1400 Balance -550 -180 - Medications Medications: Current Medications Acetaminophen (Tylenol 325mg Tab) 650 mg PO Q4 PRN PRN Reason: Fever >100.4 F Last Admin: 10/05/18 04:48 Dose: 650 mg Amiodarone HCl (Cordarone) 200 mg PO DAILY [facility] Last Admin: 10/09/18 09:42 Dose: 200 mg Aspirin (Ecotrin) 81 mg PO DAILY [facility] Last Admin: 10/09/18 09:41 Dose: 81 mg Betamethasone/Clotrimazole (Lotrisone) 0 gm TOP BID [facility] Last Admin: 10/09/18 17:49 Dose: 1 applic Carbidopa/Levodopa (Sinemet 10/100) 1 tab PO TID [facility] Last Admin: 10/09/18 17:47 Dose: 1 tab Carvedilol (Coreg) 12.5 mg PO BID [facility] Last Admin: 10/09/18 17:48 Dose: 12.5 mg Docusate Sodium (Colace) 100 mg PO TID [facility] Last Admin: 10/09/18 17:47 Dose: 100 mg Ferrous Sulfate (Feosol) 325 mg PO BID [facility] Last Admin: 10/09/18 17:48 Dose: 325 mg Finasteride (Proscar) 5 mg PO DAILY [facility] Last Admin: 10/09/18 09:41 Dose: 5 mg Furosemide (Lasix) 40 mg IVP DAILY [facility] Last Admin: 10/09/18 09:42 Dose: 40 mg Hydralazine HCl (Apresoline) 75 mg PO Q8 [facility] Last Admin: 10/09/18 13:06 Dose: 75 mg Ampicillin 1 gm/ Sodium (Chloride) 100 mls @ 100 mls/hr IVPB Q6H [facility]; Protocol Last Admin: 10/09/18 17:45 Dose: 100 mls/hr Insulin Detemir (Levemir) 10 unit SC HS [facility] Last Admin: 10/08/18 22:51 Dose: 10 units Insulin Human Regular (Novolin R) 0 unit SC ACHS [facility]; Protocol Last Admin: 10/09/18 13:15 Dose: Not Given Lisinopril (Zestril) 20 mg PO DAILY [facility] Last Admin: 10/09/18 09:41 Dose: 20 mg Rosuvastatin Calcium (Crestor) 10 mg PO [facility] Last Admin: 10/08/18 22:52 Dose: 10 mg Tamsulosin HCl (Flomax) 0.4 mg PO DAILY [facility] Last Admin: 10/09/18 09:41 Dose: 0.4 mg - Labs Labs: 10/08/18 11:09 10/08/18 11:09 PT 11.6 SECONDS (9.7-12.2) 09/18/18 03:36 INR 1.1 09/18/18 03:36 APTT 62 SECONDS (21-34) H 09/18/18 03:36 Assessment and Plan - Assessment and Plan (Free Text) Assessment: 83 year old male admitted with acute CHF, hypertention, seen and examined. Alert, responsive, non co-operative at times. No sob or chest pains noted.
--- NOTE | 2018-10-09 21:54 | CP.PCM.PN ---
Subjective - Subjective Subjective: dictated Objective - Vital Signs/Intake and Output Vital Signs (last 24 hours): Temp Pulse Resp BP Pulse Ox 97.1 F L 61 20 137/53 L 96 10/09/18 15:00 10/09/18 15:00 10/09/18 15:00 10/09/18 17:48 10/09/18 15:00 Intake and Output: 10/09/18 10/10/18 18:59 06:59 Intake Total 1220 Output Total 1400 Balance -180 - Medications Medications: Current Medications Acetaminophen (Tylenol 325mg Tab) 650 mg PO Q4 PRN PRN Reason: Fever >100.4 F Last Admin: 10/05/18 04:48 Dose: 650 mg Amiodarone HCl (Cordarone) 200 mg PO DAILY [facility] Last Admin: 10/09/18 09:42 Dose: 200 mg Aspirin (Ecotrin) 81 mg PO DAILY [facility] Last Admin: 10/09/18 09:41 Dose: 81 mg Betamethasone/Clotrimazole (Lotrisone) 0 gm TOP BID [facility] Last Admin: 10/09/18 17:49 Dose: 1 applic Carbidopa/Levodopa (Sinemet 10/100) 1 tab PO TID [facility] Last Admin: 10/09/18 17:47 Dose: 1 tab Carvedilol (Coreg) 12.5 mg PO BID [facility] Last Admin: 10/09/18 17:48 Dose: 12.5 mg Docusate Sodium (Colace) 100 mg PO TID [facility] Last Admin: 10/09/18 17:47 Dose: 100 mg Ferrous Sulfate (Feosol) 325 mg PO BID [facility] Last Admin: 10/09/18 17:48 Dose: 325 mg Finasteride (Proscar) 5 mg PO DAILY [facility] Last Admin: 10/09/18 09:41 Dose: 5 mg Furosemide (Lasix) 40 mg IVP DAILY [facility] Last Admin: 10/09/18 09:42 Dose: 40 mg Hydralazine HCl (Apresoline) 75 mg PO Q8 [facility] Last Admin: 10/09/18 13:06 Dose: 75 mg Ampicillin 1 gm/ Sodium (Chloride) 100 mls @ 100 mls/hr IVPB Q6H [facility]; Protocol Last Admin: 10/09/18 17:45 Dose: 100 mls/hr Insulin Detemir (Levemir) 10 unit SC HS [facility] Last Admin: 10/08/18 22:51 Dose: 10 units Insulin Human Regular (Novolin R) 0 unit SC ACHS [facility]; Protocol Last Admin: 10/09/18 13:15 Dose: Not Given Lisinopril (Zestril) 20 mg PO DAILY [facility] Last Admin: 10/09/18 09:41 Dose: 20 mg Rosuvastatin Calcium (Crestor) 10 mg PO HS [facility] Last Admin: 10/08/18 22:52 Dose: 10 mg Tamsulosin HCl (Flomax) 0.4 mg PO DAILY [facility] Last Admin: 10/09/18 09:41 Dose: 0.4 mg - Labs Labs: 10/08/18 11:09 10/08/18 11:09 PT 11.6 SECONDS (9.7-12.2) 09/18/18 03:36 INR 1.1 09/18/18 03:36 APTT 62 SECONDS (21-34) H 09/18/18 03:36
[2018-10-09] MEDS: Insulin Detemir 100 units/ml Vial (Levemir) SC SCH (22:14)
--- NOTE | 2018-10-10 02:15 | PN ---
DATE: 10/09/2018 SUBJECTIVE: Bahman is feeling better. He is afebrile. No shortness of breath. No chest pain. He gets agitated and restless, and does not follow the commands. PHYSICAL EXAMINATION: VITAL SIGNS: Blood pressure 137/53, pulse 61, respiratory rate 20, and temperature 99.1. LUNGS: Bilateral scattered rales. CARDIOVASCULAR SYSTEM: S1 and S2 regular. ABDOMEN: Soft. ASSESSMENT: 1. Congestive heart failure exacerbation. 2. Type 2 diabetes. 3. Infective endocarditis. 4. Hypertension. 5. Hyperlipidemia. PLAN: Continue antibiotics. Monitor the patient. Dmitriy Lora MD
[2018-10-10] MEDS: AMPicillin 1 GM in Sodium Chloride 0.9% 100 ML IVPB SCH ×3 (05:04→16:44)
[2018-10-10 08:09] VITALS: PULSE 59; TEMP 98; O2SAT 97
[2018-10-10] MEDS: (Novolin R) Insulin Human Regular 100 units/ml vial SC SCH ×3 (08:26→16:54)
[2018-10-10] MEDS: Clotrimazole/Betamethasone Cream(15 gm) TOP SCH (09:08)
[2018-10-10 09:10] VITALS: BP 140/58
--- NOTE | 2018-10-10 15:39 | PN ---
DATE: 10/10/2018 SUBJECTIVE: The patient is confused but less restless. He ate his lunch and took his medications today. He does not appear to be in respiratory distress. PHYSICAL EXAMINATION: VITAL SIGNS: Blood pressure 144/58, heart rate 69, temperature 98, respirations 20. HEENT: Normocephalic. CHEST: Clear. HEART: S1, S2 regular. EXTREMITIES: No edema. LABORATORY DATA: His blood sugars are 199 and 167. ASSESSMENT: 1. Nonischemic cardiomyopathy. 2. Altered mental status. 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 4. Nonsustained ventricular tachycardia. RECOMMENDATIONS: Continue IV ampicillin at 1 g every 6 hours, hydralazine 75 mg every 8 hours, amiodarone 200 mg daily, Coreg 12.5 mg twice a day, Crestor 10 mg once a day, aspirin 81 mg once a day, Lasix 40 mg intravenously daily and Zestril 20 mg daily. Grey Reese MD
--- NOTE | 2018-10-11 00:22 | CP.PCM.DIS ---
Provider - Provider Date of Admission: 09/18/18 06:00 Attending physician: Dmitriy Lora MD Consults: 09/18/18 06:09 Cardiology Consult Stat Comment: Consulting Provider: Grey Reese Consulting Physician: Grey Reese Reason for Consult: chf 09/18/18 15:38 Nursing Referral for Wound Care Routine Comment: Physician Instructions: Reason For Exam: r ankle wound 09/19/18 16:20 Psychiatry Consult Routine Comment: Consulting Provider: Pablo Cortez Consulting Physician: Pablo Cortez Reason for Consult: competency 09/28/18 12:17 Physician Consult Routine Comment: Consulting Provider: Jared Keene Consulting Physician: Jared Keene Reason for Consult: LISTERIA MONOCYTOGENS 10/03/18 12:00 Physician Consult Routine Comment: Consulting Provider: Priya Mcmullen Consulting Physician: Priya cMmullen Reason for Consult: ? infected ICD lead Hospital Course - Lab Results Lab Results: Micro Results 09/29/18 04:36 Blood-Venous Blood Culture - Final NO GROWTH AFTER 5 DAYS 09/29/18 04:36 Blood-Venous Gram Stain - Final TEST NOT PERFORMED 09/29/18 04:35 Blood-Venous Blood Culture - Final NO GROWTH AFTER 5 DAYS 09/29/18 04:35 Blood-Venous Gram Stain - Final TEST NOT PERFORMED 09/29/18 06:04 Urine,Clean Catch Urine Culture - Final No Growth (<1,000 CFU/ML) 09/23/18 13:55 Blood-Venous Blood Culture - Final NO GROWTH AFTER 5 DAYS 09/23/18 13:55 Blood-Venous Gram Stain - Final TEST NOT PERFORMED 09/23/18 13:26 Blood-Venous Blood Culture - Final NO GROWTH AFTER 5 DAYS 09/23/18 13:26 Blood-Venous Gram Stain - Final TEST NOT PERFORMED 09/18/18 09:03 Blood Blood Culture - Final Listeria Monocytogenes 09/18/18 09:03 Blood Gram Stain - Final 09/18/18 09:13 Blood Blood Culture - Final NO GROWTH AFTER 5 DAYS 09/18/18 09:13 Blood Gram Stain - Final TEST NOT PERFORMED 09/18/18 07:01 Urine,Catheterized Urine Culture - Final No Growth (<1,000 CFU/ML) Most Recent Lab Values WBC 8.5 K/uL (4.8-10.8) 12/02/18 11:09 RBC 4.36 Mil/uL (4.40-5.90) L 10/08/18 11:09 Hgb 11.6 g/dL (12.0-18.0) L 10/08/18 11:09 Hct 34.9 % (35.0-51.0) L 10/08/18 11:09 MCV 80.1 fL (80.0-94.0) 10/08/18 11:09 MCH 26.7 pg (27.0-31.0) L 10/08/18 11:09 MCHC 33.4 g/dL (33.0-37.0) 10/08/18 11:09 RDW 16.5 % (11.5-14.5) H 10/08/18 11:09 Plt Count 331 K/uL (130-400) 10/08/18 11:09 MPV 8.6 fL (7.2-11.7) 10/08/18 11:09 Neut % (Auto) 70.1 % (50.0-75.0) 10/08/18 11:09 Lymph % (Auto) 19.1 % (20.0-40.0) L 10/08/18 11:09 [place] % (Auto) 9.0 % (0.0-10.0) 10/08/18 11:09 Eos % (Auto) 1.4 % (0.0-4.0) 10/08/18 11:09 Baso % (Auto) 0.4 % (0.0-2.0) 10/08/18 11:09 Neut # (Auto) 6.0 K/uL (1.8-7.0) 10/08/18 11:09 Lymph # (Auto) 1.6 K/uL (1.0-4.3) 10/08/18 11:09 [place] # (Auto) 0.8 K/uL (0.0-0.8) 10/08/18 11:09 Eos # (Auto) 0.1 K/uL (0.0-0.7) 10/08/18 11:09 Baso # (Auto) 0.0 K/uL (0.0-0.2) 10/08/18 11:09 Neutrophils % (Manual) 83 % (50-75) H 09/19/18 11:24 Lymphocytes % (Manual) 8 % (20-40) L 09/19/18 11:24 Monocytes % (Manual) 9 % (0-10) 09/19/18 11:24 Basophils % (Manual) 1 % (0-2) 09/18/18 03:36 Platelet Estimate Normal (NORMAL) 09/19/18 11:24 Hypochromasia (manual) Slight 09/19/18 11:24 Poikilocytosis (manual Slight 09/19/18 11:24 Anisocytosis (manual) Slight 09/19/18 11:24 Target Cells Slight 09/19/18 11:24 ESR 40 mm/hr (0-15) H 09/29/18 04:09 PT 11.6 SECONDS (9.7-12.2) 09/18/18 03:36 INR 1.1 09/18/18 03:36 APTT 62 SECONDS (21-34) H 09/18/18 03:36 D-Dimer, Quantitative 410 ng/mlDDU (0-243) H 09/18/18 03:36 Puncture Site Lr 09/18/18 03:20 pCO2 30 mm/Hg (35-45) L 09/18/18 03:20 pO2 374 mm/Hg (80-100) H 09/18/18 03:20 HCO3 20.6 mmol/L (21-28) L 09/18/18 03:20 ABG pH 7.39 (7.35-7.45) 09/18/18 03:20 ABG Total CO2 19.1 mmol/L (22-28) L 09/18/18 03:20 ABG O2 Saturation 100.6 % (95-98) H 09/18/18 03:20 ABG Base Excess -5.6 mmol/L (-2.0-3.0) L 09/18/18 03:20 [place] Test Pos 09/18/18 03:20 ABG Potassium 3.2 mmol/L (3.6-5.2) L 09/18/18 03:20 A-a O2 Difference 302.0 mm/Hg 09/18/18 03:20 Respiratory Index 0.8 09/18/18 03:20 Sodium 143.0 mmol/l (132-148) 09/18/18 03:20 Chloride 117.0 mmol/L (98-107) H 09/18/18 03:20 Glucose 228 mg/dl (75-110) H 09/18/18 03:20 Lactate 1.0 mmol/L (0.7-2.1) 09/18/18 03:20 FiO2 100.0 % 09/18/18 03:20 Inspiratory BiPAP 12 09/18/18 03:20 Expiratory BiPAP 6 09/18/18 03:20 Sodium 137 mmol/L (132-148) 10/08/18 11:09 Potassium 4.0 mmol/L (3.6-5.2) 10/08/18 11:09 Chloride 100 mmol/L (98-107) 10/08/18 11:09 Carbon Dioxide 26 mmol/L (22-30) 10/08/18 11:09 Anion Gap 15 (10-20) 10/08/18 11:09 BUN 35 mg/dL (9-20) H 10/08/18 11:09 Creatinine 1.4 mg/dL (0.8-1.5) 10/08/18 11:09 Est GFR ( Amer) 58 10/08/18 11:09 Est GFR (Non-Af Amer) 48 10/08/18 11:09 POC Glucose (mg/dL) 111 mg/dL (65-110) H 10/10/18 16:51 Random Glucose 183 mg/dL (75-110) H 10/08/18 11:09 Calcium 8.7 mg/dl (8.6-10.4) 10/08/18 11:09 Magnesium 2.1 mg/dL (1.6-2.3) 10/08/18 11:09 Total Bilirubin 0.6 mg/dL (0.2-1.3) 10/03/18 06:44 Direct Bilirubin 0.3 mg/dL (0.0-0.4) 10/03/18 06:44 AST 34 U/L (17-59) 10/03/18 06:44 ALT 44 U/L (21-72) 10/03/18 06:44 Alkaline Phosphatase 65 U/L (38-126) 10/03/18 06:44 Total Creatine Kinase 47 U/L (55-170) L 09/18/18 19:39 CK-MB (Mass) 0.81 ng/mL (0.0-3.38) 09/18/18 19:39 Troponin I 0.0170 ng/mL (0.00-0.120) 09/18/18 19:39 C-React Prot High Sens 2.48 mg/L (1.00-3.00) 09/29/18 04:09 NT-Pro-B Natriuret Pep 2600 pg/mL (0-900) H 09/29/18 06:43 Total Protein 6.6 g/dL (6.3-8.3) 10/03/18 06:44 Albumin 3.2 g/dL (3.5-5.0) L 10/03/18 06:44 Globulin 3.3 gm/dL (2.2-3.9) 10/03/18 06:44 Albumin/Globulin Ratio 1.0 (1.0-2.1) 10/03/18 06:44 Arterial Blood Potassium 3.2 mmol/L (3.6-5.2) L 09/18/18 03:20 Urine Color Yellow (YELLOW) 09/29/18 06:04 Urine Clarity Clear (Clear) 09/29/18 06:04 Urine pH 7.0 (5.0-8.0) 09/29/18 06:04 Ur Specific [place] 1.013 (1.003-1.030) 09/29/18 06:04 Urine Protein Negative mg/dL (NEGATIVE) 09/29/18 06:04 Urine Glucose (UA) Normal mg/dL (Normal) 09/29/18 06:04 Urine Ketones Negative mg/dL (NEGATIVE) 09/29/18 06:04 Urine Blood 2+ (NEGATIVE) H 09/29/18 06:04 Urine Nitrate Negative (NEGATIVE) 09/29/18 06:04 Urine Bilirubin Negative (NEGATIVE) 09/29/18 06:04 Urine Urobilinogen Normal mg/dL (0.2-1.0) 09/29/18 06:04 Ur Leukocyte Esterase 1+ Bahman/uL (Negative) H 09/29/18 06:04 Urine WBC (Auto) 9 /hpf (0-5) H 09/29/18 06:04 Urine RBC (Auto) 198 /hpf (0-3) H 09/29/18 06:04 Ur Squamous Epith Cells < 1 /hpf (0-5) 09/29/18 06:04 Urine Bacteria Rare (<OCC) 09/29/18 06:04 Hyaline Casts 3-5 /lpf (0-2) H 09/18/18 22:50 B-Hydroxybutyrate 0.08 mM (0.02-0.27) 09/18/18 03:36 Complement C2 2.6 mg/dL (1.6-3.5) 09/29/18 06:43 Complement C4 23.0 mg/dL (14.0-44.0) 09/29/18 06:43 Tot Complement (CH50) >60 U/mL (31-60) H 09/29/18 06:43 Influenza Typ A,B (EIA) Negative for flu a/b (NEGATIVE) 09/18/18 04:20 Discharge Exam - Head Exam Head Exam: NORMAL INSPECTION Discharge Plan - Follow Up Plan Condition: STABLE Disposition: REHAB FACILITY/REHAB UNIT Instructions: Heart Healthy Diet, Heart Failure, Adult (DC), High Blood Pressure (DC) Referrals: Jared Keene MD [Staff Provider] - Dmitriy Lora MD [Staff Provider] -
--- NOTE | 2018-10-11 18:55 | DS ---
DISCHARGE DIAGNOSES: Infective endocarditis, exacerbation of congestive heart failure, hypertension, Alzheimer's and Parkinson disease. HISTORY OF PRESENT ILLNESS: This is an 83-year-old male with history of diabetes, hypertension, hyperlipidemia, Parkinson disease, Alzheimer's who came in because of shortness of breath, orthopnea, PND, found to be in little congestive heart failure? started on diuretics, intake/output daily, body weight, blood culture, urine culture, chest x-ray and he was found to have infective endocarditis with Listeria monocytogenes and he had vegetation on the valve and he was started on antibiotics and he will continue three more weeks of antibiotics and he was treated, stabilized, and discharged with outpatient followup. CONDITION UPON DISCHARGE: Stable. PHYSICAL EXAMINATION: VITAL SIGNS: Blood pressure 120/58, pulse 59, respiratory rate 20, temperature 98. LUNGS: Bilateral rhonchi and rales. CARDIOVASCULAR: S1 and S2 plus S3 positive, 2/6 ejection systolic murmur at the apex. ABDOMEN: Soft and nontender. CENTRAL NERVOUS SYSTEM: The patient is forgetful. LABORATORY DATA: WBC 8.5, hemoglobin 11.6, hematocrit 34.9, platelets 331. Chemistries: Sodium 137, potassium 4, chloride 100, bicarb 26, BUN 35, creatinine 1.5. CONDITION UPON DISCHARGE: Stable. He will go to subacute rehab. Dmitriy Lora MD
== END 2018-10-10 17:37 | DRG 291 ==
LOC: C.ER 02:55 → C.9E 06:00 → UNDOADMIN 06:00 → C.ER 10:31 → C.6T 12:02
PROVIDERS: ADMIT Internal Medicine; ATTEND Internal Medicine
PROC: 02HV33Z Insertion of Infusion Device into Superior Vena Cava, Percutaneous Approach (ICD-10-PCS; principal; 2018-10-09)
PROC: B518ZZA Fluoroscopy of Superior Vena Cava, Guidance (ICD-10-PCS; 2018-10-09)
DX: I13.0 Hypertensive heart and chronic kidney disease with heart failure and stage 1 through stage 4 chronic kidney disease, or unspecified chronic kidney disease (principal); I50.23 Acute on chronic systolic (congestive) heart failure; I33.0 Acute and subacute infective endocarditis; J18.1 Lobar pneumonia, unspecified organism; I47.2 Ventricular tachycardia; J44.0 Chronic obstructive pulmonary disease with (acute) lower respiratory infection; N39.0 Urinary tract infection, site not specified; T82.7XXA Infection and inflammatory reaction due to other cardiac and vascular devices, implants and grafts, initial encounter; J98.11 Atelectasis; R78.81 Bacteremia; A00-B99 Certain infectious and parasitic diseases; I42.0 Dilated cardiomyopathy; E11.65 Type 2 diabetes mellitus with hyperglycemia; N18.9 Chronic kidney disease, unspecified; I25.10 Atherosclerotic heart disease of native coronary artery without angina pectoris; B96.89 Other specified bacterial agents as the cause of diseases classified elsewhere; F43.29 Adjustment disorder with other symptoms; G30.9 Alzheimer's disease, unspecified; F02.80 Dementia in other diseases classified elsewhere, unspecified severity, without behavioral disturbance, psychotic disturbance, mood disturbance, and anxiety; G20 Parkinson's disease; E11.22 Type 2 diabetes mellitus with diabetic chronic kidney disease; I48.91 Unspecified atrial fibrillation; N13.9 Obstructive and reflux uropathy, unspecified; D64.9 Anemia, unspecified; G25.2 Other specified forms of tremor; R13.10 Dysphagia, unspecified; K59.00 Constipation, unspecified; E78.5 Hyperlipidemia, unspecified; E78.00 Pure hypercholesterolemia, unspecified; Z95.810 Presence of automatic (implantable) cardiac defibrillator; Z87.891 Personal history of nicotine dependence; Z95.5 Presence of coronary angioplasty implant and graft

== ENCOUNTER 2018-10-29 02:42 | Emergency (ER) | payer MEDICARE, MEDICAID ==
[2018-10-29 02:43] VITALS: BMI 27.1
[2018-10-29 02:58] VITALS: TEMP 98.3
--- NOTE | 2018-10-29 03:29 | C.PDOC ---
History Of Present Illness Patient sent to ED from [place] home for evaluation, was allegedly combative and agitated in [place]. Patient currently calm and cooperative, has no physical complaints. Time Seen by Provider: 10/29/18 02:54 Chief Complaint (Nursing): Medical Clearance History Per: Patient, EMS History/Exam Limitations: no limitations Past Medical History Reviewed: Historical Data, Nursing Documentation, Vital Signs Vital Signs: Last Vital Signs Temp 98.3 F 10/29/18 02:50 Pulse 74 10/29/18 02:50 Resp 18 10/29/18 02:50 BP 181/71 H 10/29/18 02:50 Pulse Ox 96 10/29/18 02:50 - Medical History PMH: Alzheimer's Disease, Arthritis, Asthma, CAD, CHF, Dementia, Diabetes, HTN, Hypercholesterolemia, Hyperlipidemia, Parkinson's Disease, Pneumonia, Chronic Kidney Disease Surgical History: Coronary Stent, Pacemaker - [facility] Procedures FLUOROSCOPY OF LEFT HEART USING OTHER CONTRAST (08/02/18) FLUOROSCOPY OF MULTIPLE CORONARY ARTERIES USING OTH CONTRAST (08/02/18) FLUOROSCOPY OF SUPERIOR VENA CAVA, GUIDANCE (09/18/18) INSERTION OF INFUSION DEV INTO SUP VENA CAVA, PERC APPROACH (09/18/18) MEASURE OF CARDIAC SAMPL & PRESSURE, L HEART, PERC APPROACH (08/02/18) TETANUS TOXOID ADMINIST (10/01/13) TRANSFUSE NONAUT RED BLOOD CELLS IN PERIPH VEIN, PERC (03/20/17) Family History: States: Other Other Family History: noncontributory - Social History Hx Tobacco Use: No Hx Alcohol Use: No Hx Substance Use: No - Immunization History Hx Tetanus Toxoid Vaccination: No Hx Influenza Vaccination: Yes Hx Pneumococcal Vaccination: No Review Of Systems Constitutional: Negative for: Fever Cardiovascular: Negative for: Chest Pain Respiratory: Negative for: Shortness of Breath Gastrointestinal: Negative for: Nausea, Vomiting, Abdominal Pain Neurological: Negative for: Headache, Dizziness Physical Exam - Physical Exam Appears: Well, Non-toxic, No Acute Distress Skin: Other (multiple scattered ecchymoses of B/L UEs) Eye(s): bilateral: Normal Inspection, PERRL, EOMI Oral Mucosa: Moist Cardiovascular: Rhythm Regular Respiratory: Normal Breath Sounds, No Rales, No Rhonchi, No Wheezing Gastrointestinal/Abdominal: Normal Exam, Bowel Sounds, Soft, No Tenderness Extremity: Bilateral: Atraumatic, Normal Color And Temperature Neurological/Psych: Oriented x3, Other (resting tremor noted ) ED Course And Treatment O2 Sat by Pulse Oximetry: 96 (RA) Pulse Ox Interpretation: Normal Progress Note: Patient is AAOx3, calm and cooperative, and has no physical complaints. Vitals are WNL, accucheck 182. Patient now c/o left hip pain - Xray of left hip/pelvis ordered and reviewed - negative for acute findings. Will discharge back to [place]. Disposition Counseled Patient/Family Regarding: Diagnosis, Need For Followup - Disposition Referrals: Dmitriy Lora MD [Staff Provider] - Disposition: TRANSF TO SNF Disposition Time: 03:30 Condition: STABLE Forms: [facility] (Estonian), General Discharge Instructions Print Language: [place] - Clinical Impression Clinical Impression: Medical assessment
[2018-10-29] MEDS ORDERED: Sodium Chloride 0.9% 0 ML ONE (04:11)
[2018-10-29 07:51] VITALS: BP 142/59; PULSE 100; RESP 16; O2SAT 97
--- NOTE | 2018-10-29 16:09 | RAD ---
PROCEDURE: Left Hip X-ray Radiographs. HISTORY: left hip/pelvis pain COMPARISON: None. FINDINGS: BONES: Normal. No fracture. JOINTS: Normal. SOFT TISSUES: Normal. OTHER FINDINGS: None. IMPRESSION: Normal left hip radiographs.
== END 2018-10-29 07:50 ==
LOC: C.ER 02:42
DX: Z00.00 Encounter for general adult medical examination without abnormal findings (principal)

== ENCOUNTER 2019-01-27 17:12 | Inpatient (IN) | payer MEDICARE, MEDICAID ==
[2019-01-27 17:13] VITALS: BMI 27.1
[2019-01-27] MEDS ORDERED: Albuterol-Ipratrop 3 mg / 0.5 (3 ml) UD INH STA (17:43)
[2019-01-27 17:56] LABS: BASO % 0.4 % (0.0-2.0); EOS # 0.1 K/uL (0.0-0.7); EOS % 1.8 % (0.0-4.0); HEMOGLOBIN 12.1 g/dL (12.0-18.0); LYMPH # 0.9 K/uL (1.0-4.3); MEAN CELL VOLUME 78.7 fL (80.0-94.0); MEAN CORPUSCULAR HEMOGLOBIN 25.8 pg (27.0-31.0); MEAN CORPUSCULAR HGB CONC 32.8 g/dL (33.0-37.0); MEAN PLATELET VOLUME 7.9 fL (7.2-11.7); MONO # 0.6 K/uL (0.0-0.8); NEUT % 77.8 % (50.0-75.0); RBC 4.69 Mil/uL (4.40-5.90); RED CELL DISTRIBUTION WIDTH 15.3 % (11.5-14.5); WHITE BLOOD COUNT 7.8 K/uL (4.8-10.8)
[2019-01-27] MEDS ORDERED: Albuterol-Ipratrop 3 mg / 0.5 (3 ml) UD ONE (17:57)
--- NOTE | 2019-01-27 18:01 | C.PDOC ---
History Of Present Illness 83 year old male with PMHx of HTN, COPD, CHF, CAD post stent, Parkinson's, Alzheimer's, and pacemaker was brought in by EMS for evaluation of cough. The pt lives at home with his family when he began to cough In the ED the patient c omplains of productive cough, Admits to eating soup prior to cough, but also notes long standing cough which has recently worsened. No constipation or diarrhea. No dark or bloody stool. No back pain. No urinary complaints. No fever, chills, or any other associated symptoms. Per records pt is allergic to nitroglycerin. Time Seen by Provider: 01/27/19 17:18 Chief Complaint (Nursing): Cough, Cold, Congestion History Per: Patient, EMS History/Exam Limitations: no limitations Onset/Duration Of Symptoms: Hrs (prior to arrival) Current Symptoms Are (Timing): Still Present Recent travel outside of the [place]: No Past Medical History Reviewed: Historical Data, Nursing Documentation, Vital Signs Vital Signs: Last Vital Signs Temp 96.1 F L 01/27/19 17:22 Pulse 66 01/27/19 17:22 Resp 24 01/27/19 17:22 BP 128/48 L 01/27/19 17:22 Pulse Ox 96 01/27/19 17:22 - Medical History PMH: Alzheimer's Disease, Arthritis, Asthma, CAD, CHF, Dementia, Diabetes, HTN, Hypercholesterolemia, Hyperlipidemia, Parkinson's Disease, Pneumonia, Chronic Kidney Disease Denies: HIV, Seizures, Sexually Transmitted Disease Surgical History: Coronary Stent, Pacemaker - [facility] Procedures FLUOROSCOPY OF LEFT HEART USING OTHER CONTRAST (08/02/18) FLUOROSCOPY OF MULTIPLE CORONARY ARTERIES USING OTH CONTRAST (08/02/18) FLUOROSCOPY OF SUPERIOR VENA CAVA, GUIDANCE (09/18/18) INSERTION OF INFUSION DEV INTO SUP VENA CAVA, PERC APPROACH (09/18/18) MEASURE OF CARDIAC SAMPL & PRESSURE, L HEART, PERC APPROACH (08/02/18) TETANUS TOXOID ADMINIST (10/01/13) TRANSFUSE NONAUT RED BLOOD CELLS IN PERIPH VEIN, PERC (03/20/17) Family History: States: Unknown Family Hx - Social History Hx Tobacco Use: No Hx Alcohol Use: No Hx Substance Use: No - Immunization History Hx Tetanus Toxoid Vaccination: No Hx Influenza Vaccination: Yes Hx Pneumococcal Vaccination: No Review Of Systems Except As Marked, All Systems Reviewed And Found Negative. Constitutional: Negative for: Fever, Chills, Weakness, Malaise Eyes: Negative for: Pain, Vision Change, Eyelid Inflammation ENT: Negative for: Ear Pain, Ear Discharge, Nose Pain, Nose Discharge, Nose Congestion, Mouth Pain, Mouth Swelling, Throat Pain Cardiovascular: Negative for: Chest Pain, Palpitations, Orthopnea, Paroxysmal Noc. Dyspnea, Edema Respiratory: Positive for: Cough (productive cough. ), Other (choking. ). Negative for: Shortness of Breath, Hemoptysis, SOB with Excertion, Pleuritic Pain Gastrointestinal: Negative for: Nausea, Vomiting, Abdominal Pain, Diarrhea, Constipation, Melena, Hematochezia, Hematemesis Genitourinary: Negative for: Dysuria, Frequency, Hematuria, Penile Discharge, Scrotal Pain Musculoskeletal: Negative for: Neck Pain, Shoulder Pain, Back Pain, Hand Pain Skin: Negative for: Rash, Lesions Neurological: Negative for: Weakness, Numbness, Change in Speech, Headache Physical Exam - Physical Exam Appears: Well, Non-toxic, No Acute Distress Skin: Warm, Dry Head: Atraumatic, Normacephalic Eye(s): bilateral: Normal Inspection, PERRL, EOMI Ear(s): Bilateral: Normal Nose: Normal, No Flaring, No Discharge Oral Mucosa: Moist Throat: Normal, No Erythema, No Exudate Neck: Normal ROM, Supple, Other (no meningeal signs) Lymphatic: Normal Exam, No Adenopathy Chest: Symmetrical, No Deformity Cardiovascular: Rhythm Regular, No Edema, No Friction Rub, No Murmur, No JVD Respiratory: Decreased Breath Sounds (on the left lung. ), No Accessory Muscle Use, No Rales, No Rhonchi, No Stridor, No Wheezing, No Plerual Rub Gastrointestinal/Abdominal: Normal Exam, Soft, No Tenderness, No Mass, No Distention, No Guarding Back: Normal Inspection, No CVA Tenderness, No Vertebral Tenderness, No Decreased ROM Extremity: Normal ROM Extremity: Bilateral: Atraumatic, Normal Color And Temperature, Normal ROM Neurological/Psych: Oriented x3, Normal Speech, Other (resting tremors. ) ED Course And Treatment - Laboratory Results Result Diagrams: 01/27/19 17:53 01/27/19 17:53 O2 Sat by Pulse Oximetry: 96 (RA) Pulse Ox Interpretation: Normal - Other Rad CXR X-Ray: Viewed By Me, Read By Radiologist Interpretation: FINDINGS: LUNGS: No active pulmonary disease. PLEURA: No significant pleural effusion identified. No pneumothorax apparent. CARDIOVASCULAR: No aortic atherosclerotic calcification present. Normal cardiac size. No congestive change. AICD. OSSEOUS STRUCTURES: No significant abnormalities. VISUALIZED UPPER ABDOMEN: Normal. OTHER FINDINGS: None. IMPRESSION: No active disease. Medical Decision Making Medical Decision Makin yr old male w/ hx of ALZHD, Parkinson, Pacemaker, CAD w/ stent, CHF, PNA p/w cough. Likely CHF exacerbation vs PNA. No complaints of body aches and no flu on exam. Relatively comfortable on exam. No signs of trauma or fall. No dark or bloody stool per pt. No GI or complaints. No wheezes on exam but will rx w/ x1 duoneb for possible mild copd exacerbation. Initial plan: -Blood sent. -CXR -Duoneb -Blood culture -Throat culture -Influenza -Rapid Strep 193 abx ordered for ?PNA on my read CHF exacerbation, BNP elevated. lasix ordered pt in NAD no other complaints lactic unremarakble appreciate consult w/ Dmitriy Gilbert to admit to his service Disposition - Disposition Disposition: HOSPITALIZED Disposition Time: 19:35 Condition: STABLE - Clinical Impression Clinical Impression: CHF exacerbation - Scribe Statement The provider has reviewed the documentation as recorded by the Scribe (Shanice Hopkins) Provider Attestation: All medical record entries made by the Scribe were at my direction and personally dictated by me. I have reviewed the chart and agree that the record accurately reflects my personal performance of the history, physical exam, medical decision making, and the department course for this patient. I have also personally directed, reviewed, and agree with the discharge instructions and disposition.
[2019-01-27 18:12] LABS: VENOUS BLOOD GAS BASE EXCESS 0.1 mmol/L (0.0-2.0); VENOUS BLOOD GAS PCO2 46 mmHg (40-60); VENOUS BLOOD GAS PO2 34 mm/Hg (30-55); VENOUS BLOOD PH 7.36 (7.32-7.43)
[2019-01-27 18:13] LABS: ALB/GLOB RATIO 1.2 (1.0-2.1); ALBUMIN 3.7 g/dL (3.5-5.0); AST/SGOT 17 U/L (17-59); BLOOD UREA NITROGEN 20 mg/dL (9-20); CALCIUM 9.1 mg/dl (8.6-10.4); GFR NON-AFRICAN AMERICAN 58
[2019-01-27 18:22] LABS: ALT/SGPT < 6 U/L (21-72)
[2019-01-27 18:24] LABS: B-TYPE NATRIURETIC PEPTIDE 3500 pg/mL (0-900)
[2019-01-27] MEDS ORDERED: Vancomycin 1 gm/NS 200 ml 1 GM/200 ML BAG IVPB STA (18:38)
--- NOTE | 2019-01-27 18:41 | RAD ---
Date of service: 01/27/2019 HISTORY: sob COMPARISON: 09/29/2018 TECHNIQUE: Chest PA and lateral views FINDINGS: LUNGS: No active pulmonary disease. PLEURA: No significant pleural effusion identified. No pneumothorax apparent. CARDIOVASCULAR: No aortic atherosclerotic calcification present. Normal cardiac size. No congestive change. AICD. OSSEOUS STRUCTURES: No significant abnormalities. VISUALIZED UPPER ABDOMEN: Normal. OTHER FINDINGS: None. IMPRESSION: No active disease.
[2019-01-27] MEDS ORDERED: Vancomycin 1 GM 1 GM/250 ML BAG IVPB ONE (19:20)
[2019-01-27] MEDS: (Novolin R) Insulin Human Regular 100 units/ml vial SC SCH (21:33)
[2019-01-27] MEDS: Insulin Detemir 100 units/ml Vial (Levemir) SC SCH (22:33)
--- NOTE | 2019-01-27 22:53 | CP.PCM.CON ---
History of Present Illness - History of Present Illness History of Present Illness: CC: Cardiac evaluation for dyspnea 83 year old male with PMHx of HTN, COPD, CHF, CAD post stent, Parkinson's, Alzheimer's, and pacemaker was brought in by EMS for evaluation of choking on a pill. The pt lives at home with his family when he began to choke. In the ED the patient complains of productive cough. Admits to eating soup. No fever, chills, or any other associated symptoms. Per records pt is allergic to nitroglycerin. Chief Complaint (Nursing): Cough, Cold, Congestion History Per: Patient, EMS History/Exam Limitations: no limitations Onset/Duration Of Symptoms: Hrs (prior to arrival) Current Symptoms Are (Timing): Still Present Recent travel outside of the [place]: No Past Medical History Reviewed: Historical Data, Nursing Documentation, Vital Signs Vital Signs: Last Vital Signs Temp 96.1 F L 01/27/19 17:22 Pulse 66 01/27/19 17:22 Resp 24 01/27/19 17:22 BP 128/48 L 01/27/19 17:22 Pulse Ox 96 01/27/19 17:22 - Medical History PMH: Alzheimer's Disease, Arthritis, Asthma, CAD, CHF, Dementia, Diabetes, HTN, Hypercholesterolemia, Hyperlipidemia, Parkinson's Disease, Pneumonia, Chronic Kidney Disease Denies: HIV, Seizures, Sexually Transmitted Disease Surgical History: Coronary Stent, Pacemaker - [facility] Procedures FLUOROSCOPY OF LEFT HEART USING OTHER CONTRAST (08/02/18) FLUOROSCOPY OF MULTIPLE CORONARY ARTERIES USING OTH CONTRAST (08/02/18) FLUOROSCOPY OF SUPERIOR VENA CAVA, GUIDANCE (09/18/18) INSERTION OF INFUSION DEV INTO SUP VENA CAVA, PERC APPROACH (09/18/18) MEASURE OF CARDIAC SAMPL & PRESSURE, L HEART, PERC APPROACH (08/02/18) TETANUS TOXOID ADMINIST (10/01/13) TRANSFUSE NONAUT RED BLOOD CELLS IN PERIPH VEIN, PERC (03/20/17) Family History: States: Unknown Family Hx - Social History Hx Tobacco Use: No Hx Alcohol Use: No Hx Substance Use: No - Immunization History Hx Tetanus Toxoid Vaccination: No Hx Influenza Vaccination: Yes Hx Pneumococcal Vaccination: No Review Of Systems Except As Marked, All Systems Reviewed And Found Negative. Constitutional: Negative for: Fever, Chills Respiratory: Positive for: Cough (productive cough. ), Other (choking. ) Physical Exam - Physical Exam Appears: Non-toxic, No Acute Distress Skin: Warm, Dry Head: Atraumatic, Normacephalic Eye(s): bilateral: Normal Inspection Oral Mucosa: Moist Neck: Normal ROM, Supple Chest: Symmetrical, No Deformity Cardiovascular: Rhythm Regular, No Murmur Respiratory: Decreased Breath Sounds (on the left lung. ), Other (clear lung sounds. ) Gastrointestinal/Abdominal: Normal Exam, Soft, No Tenderness Extremity: Bilateral: Atraumatic, Normal Color And Temperature, Normal ROM Neurological/Psych: Oriented x3, Normal Speech, Other (resting tremors. ) Past Patient History - Infectious Disease Hx of Infectious Diseases: None - Past Medical History & Family History Past Medical History?: Yes - Past Social History Smoking Status: Never Smoked - CARDIAC Hx Congestive Heart Failure: Yes Hx Hypercholesterolemia: Yes Hx Hypertension: Yes Hx Pacemaker: Yes - PULMONARY Hx Asthma: Yes Hx Pneumonia: Yes - NEUROLOGICAL Hx Alzheimer's Disease: Yes Hx Dementia: Yes Hx Parkinson's Disease: Yes Hx Seizures: No - HEENT Hx HEENT Problems: No - RENAL Hx Chronic Kidney Disease: Yes - ENDOCRINE/METABOLIC Hx Diabetes Mellitus Type 2: Yes - HEMATOLOGICAL/ONCOLOGICAL Hx Human Immunodeficiency Virus (HIV): No - INTEGUMENTARY Hx Dermatological Problems: No - MUSCULOSKELETAL/RHEUMATOLOGICAL Hx Arthritis: Yes - GASTROINTESTINAL Hx Gastrointestinal Disorders: No - GENITOURINARY/GYNECOLOGICAL Hx Sexually Transmitted Disorders: No - PSYCHIATRIC Hx Substance Use: No - SURGICAL HISTORY Hx Coronary Stent: Yes - ANESTHESIA Hx Anesthesia: Yes Hx Anesthesia Reactions: No Meds Allergies/Adverse Reactions: Allergies Allergy/AdvReac Type Severity Reaction Status Date / Time nitroglycerin Allergy Mild ITCHING Verified 01/27/19 17:28 - Medications Medications: Current Medications Albuterol/Ipratropium (Duoneb 3 Mg/0.5 Mg (3 Ml) Ud) 3 ml INH RQ6 [facility] Amiodarone HCl (Cordarone) 200 mg PO DAILY [facility] Aspirin (Ecotrin) 81 mg PO DAILY [facility] Carbidopa/Levodopa (Sinemet 10/100) 1 tab PO TID [facility] Carvedilol (Coreg) 12.5 mg PO BID [facility] Clonazepam (Klonopin) 1 mg PO Q4 PRN PRN Reason: Anxiety Docusate Sodium (Colace) 100 mg PO TID [facility] Enoxaparin Sodium (Lovenox) 30 mg SC DAILY [facility] Ferrous Sulfate (Feosol) 325 mg PO BID [facility] Finasteride (Proscar) 5 mg PO DAILY [facility] Hydralazine HCl (Apresoline) 50 mg PO Q8 [facility] Last Admin: 01/27/19 22:33 Dose: 50 mg Insulin Aspart (Novolog) 10 unit SC BID [facility] Insulin Detemir (Levemir) 10 unit SC HS [facility] Last Admin: 01/27/19 22:33 Dose: 10 unit Insulin Human Regular (Novolin R) 0 unit SC ACHS [facility]; Protocol Last Admin: 01/27/19 21:33 Dose: Not Given Lisinopril (Zestril) 20 mg PO DAILY [facility] Pramipexole Dihydrochloride (Mirapex) 0.5 mg PO TID [facility] Quetiapine Fumarate (Seroquel) 25 mg PO BID [facility] Tamsulosin HCl (Flomax) 0.4 mg PO DAILY [facility] Results - Vital Signs Recent Vital Signs: Last Vital Signs Temp 97.6 F 01/27/19 20:11 Pulse 63 01/27/19 20:11 Resp 18 01/27/19 20:11 BP 156/60 H 01/27/19 20:11 Pulse Ox 96 01/27/19 20:11 - Labs Result Diagrams: 01/27/19 17:53 01/27/19 17:53 Labs: Laboratory Results - last 24 hr 01/27/19 01/27/19 01/27/19 17:53 17:53 17:58 WBC 7.8 RBC 4.69 Hgb 12.1 Hct 36.9 MCV 78.7 L MCH 25.8 L MCHC 32.8 L RDW 15.3 H Plt Count 281 MPV 7.9 Neut % (Auto) 77.8 H Lymph % (Auto) 12.0 L [place] % (Auto) 8.0 Eos % (Auto) 1.8 Baso % (Auto) 0.4 Neut # (Auto) 6.0 Lymph # (Auto) 0.9 L [place] # (Auto) 0.6 Eos # (Auto) 0.1 Baso # (Auto) 0.0 pO2 VBG pH VBG pCO2 VBG HCO3 VBG Total CO2 VBG O2 Sat (Calc) VBG Base Excess VBG Potassium Glucose Lactate Sodium 137 Potassium 4.5 Chloride 104 Carbon Dioxide 26 Anion Gap 12 BUN 20 Creatinine 1.2 Est GFR ( Amer) > 60 Est GFR (Non-Af Amer) 58 Random Glucose 168 H Calcium 9.1 Total Bilirubin 1.1 AST 17 D ALT < 6 L D Alkaline Phosphatase 83 Troponin I < 0.0120 NT-Pro-B Natriuret Pep 3500 H Total Protein 6.6 Albumin 3.7 Globulin 2.9 Albumin/Globulin Ratio 1.2 Venous Blood Potassium Influenza Typ A,B (EIA) Negative for flu a/b Grp A Beta Strep Ag 01/27/19 01/27/19 17:58 18:00 WBC RBC Hgb Hct MCV MCH MCHC RDW Plt Count MPV Neut % (Auto) Lymph % (Auto) [place] % (Auto) Eos % (Auto) Baso % (Auto) Neut # (Auto) Lymph # (Auto) [place] # (Auto) Eos # (Auto) Baso # (Auto) pO2 34 VBG pH 7.36 VBG pCO2 46 VBG HCO3 24.1 VBG Total CO2 27.4 VBG O2 Sat (Calc) 68.6 H VBG Base Excess 0.1 VBG Potassium 4.1 Glucose 151 H Lactate 1.0 Sodium 140.0 Potassium Chloride 108.0 H Carbon Dioxide Anion Gap BUN Creatinine Est GFR ( Amer) Est GFR (Non-Af Amer) Random Glucose Calcium Total Bilirubin AST ALT Alkaline Phosphatase Troponin I NT-Pro-B Natriuret Pep Total Protein Albumin Globulin Albumin/Globulin Ratio Venous Blood Potassium 4.1 Influenza Typ A,B (EIA) Grp A Beta Strep Ag Negative Assessment & Plan - Assessment and Plan (Free Text) Assessment: A/P: Patient is a 83 year old male with past medical history of Alzheimer's Disease, Parkinson's disease, HTN, DM, CAD status post stent, Systolic CHF, pacemaker/AICD who presented to the emergency dept via EMS with shortness of breath x 3 days. Shortness of breath likely due to Acute on Chronic Systolic Congestive Heart Failure -Stable, afebrile -Monitor on telemetry -Patient with pacemaker/AICD -BNP 10,000 on admission -S/P Lasix 80mg IVP in the emergency dept -Last echocardiogram 05/2018 showed ED 30-35%, severely dilated LV, moderate to severe MR (see full report) -CXR showed pulmonary venous congestion (official read pending) -We will continue Lasix 20mg IVP daily -Patient on both lopressor 25mg Q12H and Coreg 6.125mg PO BID, unclear why, will hold lopressor at this time. -Cardiology on consult, Dr Garcia, help appreciated -Daily weights, strict intake/output -Supplemental O2 Ventricular Tachycardia -patient transferred to ICU on 08/03 given 2 gem of magnesium, 150 mg IV Amiod arone, placed on BIPAP and shortly afterwards he broke and back in base line rhythm with HR 70s. -patient transferred back to tele on 08/04 -will need biventricular defibrillator interrogated CAD -Continue ASA 81mg PO daily -Continue Amiodarone 200mg PO daily -Cardiology on consult, help appreciated Hypertension -Continue Norvasc 10mg PO daily -Lisinopril 10mg PO daily, Coreg 6.25mg PO BID -Monitor vitals Diabetes Mellitus, Type 2 -Low dose insulin scale ACHS -Accuchecks ACHS -Last HgA1c 6.2% -Hypoglycemia protocol BPH -Continue Flomax 0.4mg PO daily -Continue Proscar 5mg PO daily History of Parkinson's Disease -Continue Carbidopa/Levodopa 1 tab PO TID -Continue Seroquel 25mg PO HS GI/DVT ppx: -Protonix 40mg IVP daily -Lovenox 40mg SC daily Assessment and Plan: I melissa CMP with low EF s/p AICD Acute on Chronic systolic CHF A Fib with wide complex tachycardia Due to [place] Dementia not a candidate for alf anticoagulation Continue Medical management
[2019-01-28] MEDS: (Novolin R) Insulin Human Regular 100 units/ml vial SC SCH ×4 (07:18→22:24)
[2019-01-28] MEDS: Albuterol-Ipratrop 3 mg / 0.5 (3 ml) UD INH SCH ×3 (08:37→19:20)
[2019-01-28] MEDS: Enoxaparin 30 mg Syringe SC SCH ×2 (09:18→09:29)
[2019-01-28] MEDS: (Novolog) Insulin Aspart, Recombinant 100 u/ml 10 ml vial SC SCH ×2 (09:18→17:40)
--- NOTE | 2019-01-28 13:27 | CP.PCM.CON ---
History of Present Illness - History of Present Illness History of Present Illness: Pulmonary consult, Covering Dr Khan The Patient was seen and examined at the bedside, Medical records reviewed, and management issues were discussed and formulated with the house staff. Events reviewed Terra Ruggiero is a 83 year old male with PMHx of HTN, Hypercholesterolemia, Hyperlipidemia, COPD, CHF, CAD S/P stent, pacemaker, Chronic Kidney Disease, Alzheimer's dementia and Parkinson's Disease Who was brought in by EMS for evaluation of productive cough, Admits to eating soup prior to cough starts, but also notes long standing cough which has recently worsened. Past Patient History - Infectious Disease Hx of Infectious Diseases: None - Past Medical History & Family History Past Medical History?: Yes - Past Social History Smoking Status: Never Smoked - CARDIAC Hx Congestive Heart Failure: Yes Hx Hypercholesterolemia: Yes Hx Hypertension: Yes Hx Pacemaker: Yes - PULMONARY Hx Asthma: Yes Hx Pneumonia: Yes - NEUROLOGICAL Hx Alzheimer's Disease: Yes Hx Dementia: Yes Hx Parkinson's Disease: Yes Hx Seizures: No - HEENT Hx HEENT Problems: No - RENAL Hx Chronic Kidney Disease: Yes - ENDOCRINE/METABOLIC Hx Diabetes Mellitus Type 2: Yes - HEMATOLOGICAL/ONCOLOGICAL Hx Human Immunodeficiency Virus (HIV): No - INTEGUMENTARY Hx Dermatological Problems: No - MUSCULOSKELETAL/RHEUMATOLOGICAL Hx Arthritis: Yes - GASTROINTESTINAL Hx Gastrointestinal Disorders: No - GENITOURINARY/GYNECOLOGICAL Hx Sexually Transmitted Disorders: No - PSYCHIATRIC Hx Substance Use: No - SURGICAL HISTORY Hx Coronary Stent: Yes - ANESTHESIA Hx Anesthesia: Yes Hx Anesthesia Reactions: No Meds Allergies/Adverse Reactions: Allergies Allergy/AdvReac Type Severity Reaction Status Date / Time nitroglycerin Allergy Mild ITCHING Verified 01/28/19 00:26 - Medications Medications: Current Medications Albuterol/Ipratropium (Duoneb 3 Mg/0.5 Mg (3 Ml) Ud) 3 ml INH RQ6 [facility] Last Admin: 01/28/19 08:37 Dose: 3 ml Amiodarone HCl (Cordarone) 200 mg PO DAILY [facility] Last Admin: 01/28/19 09:18 Dose: 200 mg Aspirin (Ecotrin) 81 mg PO DAILY [facility] Last Admin: 01/28/19 09:17 Dose: 81 mg Carbidopa/Levodopa (Sinemet 10/100) 1 tab PO TID [facility] Last Admin: 01/28/19 09:25 Dose: 1 tab Carvedilol (Coreg) 12.5 mg PO BID [facility] Last Admin: 01/28/19 09:18 Dose: 12.5 mg Clonazepam (Klonopin) 1 mg PO Q4 PRN PRN Reason: Anxiety Last Admin: 01/28/19 00:57 Dose: 1 mg Docusate Sodium (Colace) 100 mg PO TID [facility] Last Admin: 01/28/19 09:17 Dose: 100 mg Enoxaparin Sodium (Lovenox) 30 mg SC DAILY [facility] Last Admin: 01/28/19 09:29 Dose: Not Given Ferrous Sulfate (Feosol) 325 mg PO BID [facility] Last Admin: 01/28/19 09:17 Dose: 325 mg Finasteride (Proscar) 5 mg PO DAILY [facility] Last Admin: 01/28/19 09:17 Dose: 5 mg Hydralazine HCl (Apresoline) 50 mg PO Q8 [facility] Last Admin: 01/28/19 06:13 Dose: 50 mg Insulin Aspart (Novolog) 10 unit SC BID [facility] Last Admin: 01/28/19 09:18 Dose: 10 units Insulin Detemir (Levemir) 10 unit SC [facility] Last Admin: 01/27/19 22:33 Dose: 10 unit Insulin Human Regular (Novolin R) 0 unit SC [facility]; Protocol Last Admin: 01/28/19 12:47 Dose: Not Given Lisinopril (Zestril) 20 mg PO DAILY [facility] Last Admin: 01/28/19 09:17 Dose: 20 mg Pramipexole Dihydrochloride (Mirapex) 0.5 mg PO TID [facility] Last Admin: 01/28/19 09:26 Dose: 0.5 mg Quetiapine Fumarate (Seroquel) 25 mg PO BID [facility] Last Admin: 01/28/19 09:18 Dose: 25 mg Tamsulosin HCl (Flomax) 0.4 mg PO DAILY [facility] Last Admin: 01/28/19 09:17 Dose: 0.4 mg Results - Vital Signs Recent Vital Signs: Last Vital Signs Temp 97.8 F 01/28/19 08:59 Pulse 64 01/28/19 08:59 Resp 20 01/28/19 08:59 BP 131/66 01/28/19 09:18 Pulse Ox 97 01/28/19 08:59 - Labs Result Diagrams: 01/27/19 17:53 01/27/19 17:53 Labs: Laboratory Results - last 24 hr 01/27/19 01/27/19 01/27/19 17:53 17:53 17:58 WBC 7.8 RBC 4.69 Hgb 12.1 Hct 36.9 MCV 78.7 L MCH 25.8 L MCHC 32.8 L RDW 15.3 H Plt Count 281 MPV 7.9 Neut % (Auto) 77.8 H Lymph % (Auto) 12.0 L [place] % (Auto) 8.0 Eos % (Auto) 1.8 Baso % (Auto) 0.4 Neut # (Auto) 6.0 Lymph # (Auto) 0.9 L [place] # (Auto) 0.6 Eos # (Auto) 0.1 Baso # (Auto) 0.0 pO2 VBG pH VBG pCO2 VBG HCO3 VBG Total CO2 VBG O2 Sat (Calc) VBG Base Excess VBG Potassium Glucose Lactate Sodium 137 Potassium 4.5 Chloride 104 Carbon Dioxide 26 Anion Gap 12 BUN 20 Creatinine 1.2 Est GFR ( Amer) > 60 Est GFR (Non-Af Amer) 58 POC Glucose (mg/dL) Random Glucose 168 H Calcium 9.1 Total Bilirubin 1.1 AST 17 D ALT < 6 L D Alkaline Phosphatase 83 Troponin I < 0.0120 NT-Pro-B Natriuret Pep 3500 H Total Protein 6.6 Albumin 3.7 Globulin 2.9 Albumin/Globulin Ratio 1.2 Venous Blood Potassium Influenza Typ A,B (EIA) Negative for flu a/b Grp A Beta Strep Ag 01/27/19 01/27/19 01/28/19 17:58 18:00 12:26 WBC RBC Hgb Hct MCV MCH MCHC RDW Plt Count MPV Neut % (Auto) Lymph % (Auto) [place] % (Auto) Eos % (Auto) Baso % (Auto) Neut # (Auto) Lymph # (Auto) [place] # (Auto) Eos # (Auto) Baso # (Auto) pO2 34 VBG pH 7.36 VBG pCO2 46 VBG HCO3 24.1 VBG Total CO2 27.4 VBG O2 Sat (Calc) 68.6 H VBG Base Excess 0.1 VBG Potassium 4.1 Glucose 151 H Lactate 1.0 Sodium 140.0 Potassium Chloride 108.0 H Carbon Dioxide Anion Gap BUN Creatinine Est GFR ( Amer) Est GFR (Non-Af Amer) POC Glucose (mg/dL) 81 Random Glucose Calcium Total Bilirubin AST ALT Alkaline Phosphatase Troponin I NT-Pro-B Natriuret Pep Total Protein Albumin Globulin Albumin/Globulin Ratio Venous Blood Potassium 4.1 Influenza Typ A,B (EIA) Grp A Beta Strep Ag Negative
--- NOTE | 2019-01-28 21:51 | CP.PCM.HP ---
Present on Admission - Present on Admission Any Indicators Present on Admission: No Past Patient History - Infectious Disease Hx of Infectious Diseases: None - Past Medical History & Family History Past Medical History?: Yes - Past Social History Smoking Status: Never Smoked - CARDIAC Hx Congestive Heart Failure: Yes Hx Hypercholesterolemia: Yes Hx Hypertension: Yes Hx Pacemaker: Yes - PULMONARY Hx Asthma: Yes Hx Pneumonia: Yes - NEUROLOGICAL Hx Alzheimer's Disease: Yes Hx Dementia: Yes Hx Parkinson's Disease: Yes Hx Seizures: No - HEENT Hx HEENT Problems: No - RENAL Hx Chronic Kidney Disease: Yes - ENDOCRINE/METABOLIC Hx Diabetes Mellitus Type 2: Yes - HEMATOLOGICAL/ONCOLOGICAL Hx Human Immunodeficiency Virus (HIV): No - INTEGUMENTARY Hx Dermatological Problems: No - MUSCULOSKELETAL/RHEUMATOLOGICAL Hx Arthritis: Yes - GASTROINTESTINAL Hx Gastrointestinal Disorders: No - GENITOURINARY/GYNECOLOGICAL Hx Sexually Transmitted Disorders: No - PSYCHIATRIC Hx Substance Use: No - SURGICAL HISTORY Hx Coronary Stent: Yes - ANESTHESIA Hx Anesthesia: Yes Hx Anesthesia Reactions: No Meds Allergies/Adverse Reactions: Allergies Allergy/AdvReac Type Severity Reaction Status Date / Time nitroglycerin Allergy Mild ITCHING Verified 01/28/19 00:26 Results - Vital Signs Recent Vital Signs: Last Vital Signs Temp 97.8 F 01/28/19 08:59 Pulse 62 01/28/19 20:00 Resp 20 01/28/19 08:59 BP 144/65 01/28/19 17:57 Pulse Ox 97 01/28/19 08:59 - Labs Result Diagrams: 01/27/19 17:53 01/27/19 17:53 Labs: Laboratory Results - last 24 hr 01/28/19 01/28/19 12:26 17:20 POC Glucose (mg/dL) 81 91
--- NOTE | 2019-01-28 22:07 | CP.PCM.PN ---
Subjective - Date & Time of Evaluation Date of Evaluation: 01/28/19 Time of Evaluation: 09:10 - Subjective Subjective: Improved dyspnea No cardiac events noted Objective - Vital Signs/Intake and Output Vital Signs (last 24 hours): Temp Pulse Resp BP Pulse Ox 97.8 F 62 20 144/65 97 01/28/19 08:59 01/28/19 20:00 01/28/19 08:59 01/28/19 17:57 01/28/19 08:59 - Medications Medications: Current Medications Albuterol/Ipratropium (Duoneb 3 Mg/0.5 Mg (3 Ml) Ud) 3 ml INH RQ6 [facility] Last Admin: 01/28/19 19:20 Dose: 3 ml Amiodarone HCl (Cordarone) 200 mg PO DAILY [facility] Last Admin: 01/28/19 09:18 Dose: 200 mg Aspirin (Ecotrin) 81 mg PO DAILY [facility] Last Admin: 01/28/19 09:17 Dose: 81 mg Carbidopa/Levodopa (Sinemet 10/100) 1 tab PO TID [facility] Last Admin: 01/28/19 17:57 Dose: 1 tab Carvedilol (Coreg) 12.5 mg PO BID [facility] Last Admin: 01/28/19 17:57 Dose: 12.5 mg Clonazepam (Klonopin) 1 mg PO Q4 PRN PRN Reason: Anxiety Last Admin: 01/28/19 00:57 Dose: 1 mg Docusate Sodium (Colace) 100 mg PO TID [facility] Last Admin: 01/28/19 17:57 Dose: 100 mg Enoxaparin Sodium (Lovenox) 30 mg SC DAILY [facility] Last Admin: 01/28/19 09:29 Dose: Not Given Ferrous Sulfate (Feosol) 325 mg PO BID [facility] Last Admin: 01/28/19 17:57 Dose: 325 mg Finasteride (Proscar) 5 mg PO DAILY [facility] Last Admin: 01/28/19 09:17 Dose: 5 mg Hydralazine HCl (Apresoline) 50 mg PO Q8 [facility] Last Admin: 01/28/19 14:33 Dose: Not Given Insulin Aspart (Novolog) 10 unit SC BID [facility] Last Admin: 01/28/19 17:40 Dose: Not Given Insulin Detemir (Levemir) 10 unit SC HS [facility] Last Admin: 01/27/19 22:33 Dose: 10 unit Insulin Human Regular (Novolin R) 0 unit SC [facility]; Protocol Last Admin: 01/28/19 17:40 Dose: Not Given Lisinopril (Zestril) 20 mg PO DAILY [facility] Last Admin: 01/28/19 09:17 Dose: 20 mg Pramipexole Dihydrochloride (Mirapex) 0.5 mg PO TID [facility] Last Admin: 01/28/19 17:57 Dose: 0.5 mg Quetiapine Fumarate (Seroquel) 25 mg PO BID [facility] Last Admin: 01/28/19 17:57 Dose: 25 mg Tamsulosin HCl (Flomax) 0.4 mg PO DAILY [facility] Last Admin: 01/28/19 09:17 Dose: 0.4 mg - Labs Labs: 01/27/19 17:53 01/27/19 17:53
[2019-01-28] MEDS: Insulin Detemir 100 units/ml Vial (Levemir) SC SCH (22:24)
[2019-01-29] MEDS: Albuterol-Ipratrop 3 mg / 0.5 (3 ml) UD INH SCH ×4 (01:21→20:12)
--- NOTE | 2019-01-29 03:01 | PN ---
DATE: 01/28/2019 SUBJECTIVE: The patient is less short of breath, less cough, less wheezing. No nausea or vomiting. PHYSICAL EXAMINATION: VITAL SIGNS: Blood pressure 131/66, pulse 60, respiratory rate 20, temperature 97.8. LUNGS: Decreased air entry, positive rhonchi. CARDIOVASCULAR SYSTEM: S1 and S2, regular. No heave. No thrill. ABDOMEN: Soft, nontender. Bowel sounds are positive. ASSESSMENT: 1. Acute exacerbation of congestive heart failure. 2. Diabetes. 3. Chronic obstructive pulmonary disease. 4. Alzheimer's. PLAN: Continue Solu-Medrol, oxygen, nebulizer. Monitor the patient. Dmitriy Lora MD
[2019-01-29] MEDS: (Novolin R) Insulin Human Regular 100 units/ml vial SC SCH ×4 (07:57→22:28)
[2019-01-29] MEDS: (Novolog) Insulin Aspart, Recombinant 100 u/ml 10 ml vial SC SCH ×2 (10:43→17:45)
[2019-01-29] MEDS: Enoxaparin 30 mg Syringe SC SCH (10:48)
[2019-01-29 17:29] VITALS: RESP 20
--- NOTE | 2019-01-29 18:30 | CP.PCM.PN ---
Subjective - Date & Time of Evaluation Date of Evaluation: 01/29/19 Time of Evaluation: 11:00 - Subjective Subjective: Patient seen and examined Alert, awake, No acute distress Denies fevers, chest pain, SOB, Cough Afebrile Patient is refusing all of his medications Chest Xray 01/27- No active disease Physical Exam Oxygen Saturation 98% NC General: NAD Cardio: S1, S2 Resp: Decreased breath sounds Abd: Soft, Nontender A/P 1) CHF -Continue Lasix Objective - Vital Signs/Intake and Output Vital Signs (last 24 hours): Temp Pulse Resp BP Pulse Ox 97.9 F 70 20 115/59 L 95 01/29/19 15:00 01/29/19 15:00 01/29/19 15:00 01/29/19 17:45 01/29/19 15:00 - Medications Medications: Current Medications Albuterol/Ipratropium (Duoneb 3 Mg/0.5 Mg (3 Ml) Ud) 3 ml INH RQ6 [facility] Last Admin: 01/29/19 15:05 Dose: 3 ml Amiodarone HCl (Cordarone) 200 mg PO DAILY [facility] Last Admin: 01/29/19 10:43 Dose: 200 mg Aspirin (Ecotrin) 81 mg PO DAILY [facility] Last Admin: 01/29/19 10:43 Dose: 81 mg Carbidopa/Levodopa (Sinemet 10/100) 1 tab PO TID [facility] Last Admin: 01/29/19 17:44 Dose: 1 tab Carvedilol (Coreg) 12.5 mg PO BID [facility] Last Admin: 01/29/19 17:45 Dose: 12.5 mg Clonazepam (Klonopin) 1 mg PO Q4 PRN PRN Reason: Anxiety Last Admin: 01/29/19 10:44 Dose: 1 mg Docusate Sodium (Colace) 100 mg PO TID [facility] Last Admin: 01/29/19 17:44 Dose: 100 mg Enoxaparin Sodium (Lovenox) 30 mg SC DAILY [facility] Last Admin: 01/29/19 10:48 Dose: 30 mg Ferrous Sulfate (Feosol) 325 mg PO BID [facility] Last Admin: 01/29/19 17:44 Dose: 325 mg Finasteride (Proscar) 5 mg PO DAILY [facility] Last Admin: 01/29/19 10:44 Dose: 5 mg Hydralazine HCl (Apresoline) 50 mg PO Q8 [facility] Last Admin: 01/29/19 14:59 Dose: Not Given Insulin Aspart (Novolog) 10 unit SC BID [facility] Last Admin: 01/29/19 17:45 Dose: Not Given Insulin Detemir (Levemir) 10 unit SC HS [facility] Last Admin: 01/28/19 22:24 Dose: Not Given Insulin Human Regular (Novolin R) 0 unit SC ACHS [facility]; Protocol Last Admin: 01/29/19 16:53 Dose: Not Given Lisinopril (Zestril) 20 mg PO DAILY [facility] Last Admin: 01/29/19 10:43 Dose: 20 mg Pramipexole Dihydrochloride (Mirapex) 0.5 mg PO TID [facility] Last Admin: 01/29/19 17:44 Dose: 0.5 mg Quetiapine Fumarate (Seroquel) 25 mg PO BID [facility] Last Admin: 01/29/19 17:44 Dose: 25 mg Tamsulosin HCl (Flomax) 0.4 mg PO DAILY [facility] Last Admin: 01/29/19 10:44 Dose: 0.4 mg - Labs Labs: 01/27/19 17:53 01/27/19 17:53
[2019-01-29] MEDS: Insulin Detemir 100 units/ml Vial (Levemir) SC SCH (22:28)
--- NOTE | 2019-01-29 22:43 | CP.PCM.PN ---
Subjective - Date & Time of Evaluation Date of Evaluation: 01/29/19 Time of Evaluation: 07:20 - Subjective Subjective: dictated Objective - Vital Signs/Intake and Output Vital Signs (last 24 hours): Temp Pulse Resp BP Pulse Ox 97.9 F 61 20 115/59 L 95 01/29/19 15:00 01/29/19 20:15 01/29/19 15:00 01/29/19 17:45 01/29/19 15:00 - Medications Medications: Current Medications Albuterol/Ipratropium (Duoneb 3 Mg/0.5 Mg (3 Ml) Ud) 3 ml INH RQ6 [facility] Last Admin: 01/29/19 20:12 Dose: 3 ml Amiodarone HCl (Cordarone) 200 mg PO DAILY [facility] Last Admin: 01/29/19 10:43 Dose: 200 mg Aspirin (Ecotrin) 81 mg PO DAILY [facility] Last Admin: 01/29/19 10:43 Dose: 81 mg Carbidopa/Levodopa (Sinemet 10/100) 1 tab PO TID [facility] Last Admin: 01/29/19 17:44 Dose: 1 tab Carvedilol (Coreg) 12.5 mg PO BID [facility] Last Admin: 01/29/19 17:45 Dose: 12.5 mg Clonazepam (Klonopin) 1 mg PO Q4 PRN PRN Reason: Anxiety Last Admin: 01/29/19 10:44 Dose: 1 mg Docusate Sodium (Colace) 100 mg PO TID [facility] Last Admin: 01/29/19 17:44 Dose: 100 mg Enoxaparin Sodium (Lovenox) 30 mg SC DAILY [facility] Last Admin: 01/29/19 10:48 Dose: 30 mg Ferrous Sulfate (Feosol) 325 mg PO BID [facility] Last Admin: 01/29/19 17:44 Dose: 325 mg Finasteride (Proscar) 5 mg PO DAILY [facility] Last Admin: 01/29/19 10:44 Dose: 5 mg Hydralazine HCl (Apresoline) 50 mg PO Q8 [facility] Last Admin: 01/29/19 22:28 Dose: 50 mg Insulin Aspart (Novolog) 10 unit SC BID [facility] Last Admin: 01/29/19 17:45 Dose: Not Given Insulin Detemir (Levemir) 10 unit SC HS [facility] Last Admin: 01/29/19 22:28 Dose: Not Given Insulin Human Regular (Novolin R) [address] [facility]; Protocol Last Admin: 01/29/19 22:28 Dose: Not Given Lisinopril (Zestril) 20 mg PO DAILY [facility] Last Admin: 01/29/19 10:43 Dose: 20 mg Pramipexole Dihydrochloride (Mirapex) 0.5 mg PO TID [facility] Last Admin: 01/29/19 17:44 Dose: 0.5 mg Quetiapine Fumarate (Seroquel) 25 mg PO BID [facility] Last Admin: 01/29/19 17:44 Dose: 25 mg Tamsulosin HCl (Flomax) 0.4 mg PO DAILY [facility] Last Admin: 01/29/19 10:44 Dose: 0.4 mg - Labs Labs: 01/27/19 17:53 01/27/19 17:53
--- NOTE | 2019-01-29 23:30 | CP.PCM.PN ---
Subjective - Date & Time of Evaluation Date of Evaluation: 01/29/19 Time of Evaluation: 17:10 - Subjective Subjective: Patient seen and evaluated Offers no complaints No cardiac events noted Objective - Vital Signs/Intake and Output Vital Signs (last 24 hours): Temp Pulse Resp BP Pulse Ox 97.9 F 61 20 115/59 L 95 01/29/19 15:00 01/29/19 20:15 01/29/19 15:00 01/29/19 17:45 01/29/19 15:00 Intake and Output: 01/29/19 01/30/19 18:59 06:59 Intake Total 300 Balance 300 - Medications Medications: Current Medications Albuterol/Ipratropium (Duoneb 3 Mg/0.5 Mg (3 Ml) Ud) 3 ml INH RQ6 [facility] Last Admin: 01/29/19 20:12 Dose: 3 ml Amiodarone HCl (Cordarone) 200 mg PO DAILY [facility] Last Admin: 01/29/19 10:43 Dose: 200 mg Aspirin (Ecotrin) 81 mg PO DAILY [facility] Last Admin: 01/29/19 10:43 Dose: 81 mg Carbidopa/Levodopa (Sinemet 10/100) 1 tab PO TID [facility] Last Admin: 01/29/19 17:44 Dose: 1 tab Carvedilol (Coreg) 12.5 mg PO BID [facility] Last Admin: 01/29/19 17:45 Dose: 12.5 mg Clonazepam (Klonopin) 1 mg PO Q4 PRN PRN Reason: Anxiety Last Admin: 01/29/19 10:44 Dose: 1 mg Docusate Sodium (Colace) 100 mg PO TID [facility] Last Admin: 01/29/19 17:44 Dose: 100 mg Enoxaparin Sodium (Lovenox) 30 mg SC DAILY [facility] Last Admin: 01/29/19 10:48 Dose: 30 mg Ferrous Sulfate (Feosol) 325 mg PO BID [facility] Last Admin: 01/29/19 17:44 Dose: 325 mg Finasteride (Proscar) 5 mg PO DAILY [facility] Last Admin: 01/29/19 10:44 Dose: 5 mg Hydralazine HCl (Apresoline) 50 mg PO Q8 [facility] Last Admin: 01/29/19 22:28 Dose: 50 mg Insulin Aspart (Novolog) 10 unit SC BID [facility] Last Admin: 01/29/19 17:45 Dose: Not Given Insulin Detemir (Levemir) 10 unit SC HS [facility] Last Admin: 01/29/19 22:28 Dose: Not Given Insulin Human Regular (Novolin R) 0 unit SC [facility]; Protocol Last Admin: 01/29/19 22:28 Dose: Not Given Lisinopril (Zestril) 20 mg PO DAILY [facility] Last Admin: 01/29/19 10:43 Dose: 20 mg Pramipexole Dihydrochloride (Mirapex) 0.5 mg PO TID [facility] Last Admin: 01/29/19 17:44 Dose: 0.5 mg Quetiapine Fumarate (Seroquel) 25 mg PO BID [facility] Last Admin: 01/29/19 17:44 Dose: 25 mg Tamsulosin HCl (Flomax) 0.4 mg PO DAILY [facility] Last Admin: 01/29/19 10:44 Dose: 0.4 mg - Labs Labs: 01/27/19 17:53 01/27/19 17:53
[2019-01-30] MEDS: Albuterol-Ipratrop 3 mg / 0.5 (3 ml) UD INH SCH ×4 (01:20→19:56)
--- NOTE | 2019-01-30 05:01 | PN ---
DATE: 01/29/2019 SUBJECTIVE: The patient, Rai Ruggiero, is feeling better, less cough, shortness of breath, less wheezing. No fever. No chills. No nausea or vomiting. No dizziness. PHYSICAL EXAMINATION: VITAL SIGNS: Blood pressure 115/59, pulse 62, respiratory rate 20, temperature 97.9. LUNGS: Bilaterally scattered rales. No rhonchi. CARDIOVASCULAR SYSTEM: S1, S2. Regular. ABDOMEN: Soft, nontender. Bowel sounds are positive. ASSESSMENT: 1. Exacerbation of congestive heart failure. 2. Exacerbation of chronic obstructive pulmonary disease. 3. Type 2 diabetes. 4. Alzheimer's. PLAN: Continue current medications, Solu-Medrol. Accu-Chek sliding scale. Monitor the patient. Dmitriy Lora MD
[2019-01-30 07:17] LABS: HEMOGLOBIN 11.2 g/dL (12.0-18.0); MEAN CORPUSCULAR HEMOGLOBIN 26.7 pg (27.0-31.0); MEAN CORPUSCULAR HGB CONC 33.4 g/dL (33.0-37.0); MEAN PLATELET VOLUME 8.1 fL (7.2-11.7); RBC 4.2 Mil/uL (4.40-5.90); RED CELL DISTRIBUTION WIDTH 15.7 % (11.5-14.5); WHITE BLOOD COUNT 5.8 K/uL (4.8-10.8)
[2019-01-30] MEDS: (Novolin R) Insulin Human Regular 100 units/ml vial SC SCH ×3 (07:39→19:43)
[2019-01-30 07:45] LABS: CALCIUM 9.4 mg/dl (8.6-10.4)
[2019-01-30] MEDS: Enoxaparin 30 mg Syringe SC SCH (10:39)
--- NOTE | 2019-01-30 14:44 | CP.PCM.PN ---
Subjective - Date & Time of Evaluation Date of Evaluation: 01/30/19 Time of Evaluation: 11:25 - Subjective Subjective: Patient seen today alert, confused , NAD , comfortable , occasional productive cough noted a febrile no overnight events reported by RN Objective - Vital Signs/Intake and Output Vital Signs (last 24 hours): Temp Pulse Resp BP Pulse Ox 98.0 F 60 20 121/54 L 94 L 01/30/19 07:30 01/30/19 10:40 01/30/19 07:30 01/30/19 14:01 01/30/19 07:30 Intake and Output: 01/30/19 01/30/19 06:59 18:59 Intake Total 300 Balance 300 - Medications Medications: Current Medications Albuterol/Ipratropium (Duoneb 3 Mg/0.5 Mg (3 Ml) Ud) 3 ml INH RQ6 [facility] Last Admin: 01/30/19 13:17 Dose: 3 ml Amiodarone HCl (Cordarone) 200 mg PO DAILY [facility] Last Admin: 01/30/19 10:50 Dose: Not Given Aspirin (Ecotrin) 81 mg PO DAILY [facility] Last Admin: 01/30/19 10:50 Dose: Not Given Carbidopa/Levodopa (Sinemet 10/100) 1 tab PO TID [facility] Last Admin: 01/30/19 14:34 Dose: Not Given Carvedilol (Coreg) 12.5 mg PO BID [facility] Last Admin: 01/30/19 10:50 Dose: Not Given Clonazepam (Klonopin) 1 mg PO Q4 PRN PRN Reason: Anxiety Last Admin: 01/29/19 10:44 Dose: 1 mg Docusate Sodium (Colace) 100 mg PO TID [facility] Last Admin: 01/30/19 14:04 Dose: Not Given Enoxaparin Sodium (Lovenox) 30 mg SC DAILY [facility] Last Admin: 01/30/19 10:39 Dose: 30 mg Ferrous Sulfate (Feosol) 325 mg PO BID [facility] Last Admin: 01/30/19 10:50 Dose: Not Given Finasteride (Proscar) 5 mg PO DAILY [facility] Last Admin: 01/30/19 10:40 Dose: Not Given Hydralazine HCl (Apresoline) 50 mg PO Q8 [facility] Last Admin: 01/30/19 14:02 Dose: Not Given Insulin Aspart (Novolog) 10 unit SC BID [facility] Last Admin: 01/29/19 17:45 Dose: Not Given Insulin Detemir (Levemir) 10 unit SC HS [facility] Last Admin: 01/29/19 22:28 Dose: Not Given Insulin Human Regular (Novolin R) 0 unit SC ACHS [facility]; Protocol Last Admin: 01/30/19 14:04 Dose: Not Given Lisinopril (Zestril) 20 mg PO DAILY [facility] Last Admin: 01/30/19 10:50 Dose: Not Given Pramipexole Dihydrochloride (Mirapex) 0.5 mg PO TID [facility] Last Admin: 01/30/19 14:04 Dose: Not Given Quetiapine Fumarate (Seroquel) 25 mg PO BID [facility] Last Admin: 01/30/19 10:49 Dose: Not Given Tamsulosin HCl (Flomax) 0.4 mg PO DAILY [facility] Last Admin: 01/30/19 10:50 Dose: Not Given - Labs Labs: 01/30/19 07:04 01/30/19 07:04 Assessment and Plan - Assessment and Plan (Free Text) Assessment: A/P 83 year old male with PMHx of HTN, COPD, CHF, CAD post stent, Parkinson's, Alzheimer's, and pacemaker was brought in by EMS for evaluation of cough. admitted for exc. CHF blood culture- negative for 48 hrs throat culture - negative a febrile CXR No significant pleural effusion identified. No pneumothorax apparent. D/w Dr. Lora , cleared for discharge home today and continue same medication s
--- NOTE | 2019-01-30 14:45 | PCM.HF ---
Heart Failure Core Measure - Heart Failure Ejection Fraction: Less Than 40 % DEMARCO Inhibitor Prescribed: Yes Beta-Lay Prescribed: Carvedilol AnticoagulationTherapy for Atrial Fibrillation/Atrialflutter: No Contraindication/Reason for not providing: no hx of a fib Aldosterone Antagonist Prescribed: No Contraindication/Reason for not providing: ARF Hydralazine Nitrate Prescribed: Yes Implantable Cardioverter Defibrillator Therapy: No Contraindication/Reason for not providing: pt pacemake r Cardiac Resynchronization Therapy Prescribed: No Contraindication/Reason for not providing: pt has pacemake r - Follow up Will be discharged to: Home Follow Up Date (must be within 7 days from discharge): 02/04/19 Follow Up Time: 15:00
[2019-01-30] MEDS ORDERED: Azithromycin 500 MG in Sodium Chloride 0.9% 250 ML IVPB SCH (17:15)
--- NOTE | 2019-01-30 17:15 | CP.PCM.PN ---
Subjective - Date & Time of Evaluation Date of Evaluation: 01/30/19 Time of Evaluation: 16:00 - Subjective Subjective: Patient seen and examined No distress on examination Patient still has cough Afebrile Chest x-ray no infiltrate Objective - Vital Signs/Intake and Output Vital Signs (last 24 hours): Temp Pulse Resp BP Pulse Ox 98.0 F 60 20 121/54 L 94 L 01/30/19 07:30 01/30/19 10:40 01/30/19 07:30 01/30/19 14:01 01/30/19 07:30 Intake and Output: 01/30/19 01/30/19 06:59 18:59 Intake Total 300 Balance 300 - Medications Medications: Current Medications Albuterol/Ipratropium (Duoneb 3 Mg/0.5 Mg (3 Ml) Ud) 3 ml INH RQ6 [facility] Last Admin: 01/30/19 13:17 Dose: 3 ml Amiodarone HCl (Cordarone) 200 mg PO DAILY [facility] Last Admin: 01/30/19 10:50 Dose: Not Given Aspirin (Ecotrin) 81 mg PO DAILY [facility] Last Admin: 01/30/19 10:50 Dose: Not Given Carbidopa/Levodopa (Sinemet 10/100) 1 tab PO TID [facility] Last Admin: 01/30/19 14:34 Dose: Not Given Carvedilol (Coreg) 12.5 mg PO BID [facility] Last Admin: 01/30/19 10:50 Dose: Not Given Clonazepam (Klonopin) 1 mg PO Q4 PRN PRN Reason: Anxiety Last Admin: 01/29/19 10:44 Dose: 1 mg Docusate Sodium (Colace) 100 mg PO TID [facility] Last Admin: 01/30/19 14:04 Dose: Not Given Enoxaparin Sodium (Lovenox) 30 mg SC DAILY [facility] Last Admin: 01/30/19 10:39 Dose: 30 mg Ferrous Sulfate (Feosol) 325 mg PO BID [facility] Last Admin: 01/30/19 10:50 Dose: Not Given Finasteride (Proscar) 5 mg PO DAILY [facility] Last Admin: 01/30/19 10:40 Dose: Not Given Hydralazine HCl (Apresoline) 50 mg PO Q8 [facility] Last Admin: 01/30/19 14:02 Dose: Not Given Insulin Aspart (Novolog) 10 unit SC BID [facility] Last Admin: 01/29/19 17:45 Dose: Not Given Insulin Detemir (Levemir) 10 unit SC HS [facility] Last Admin: 01/29/19 22:28 Dose: Not Given Insulin Human Regular (Novolin R) 0 unit SC ACHS [facility]; Protocol Last Admin: 01/30/19 14:04 Dose: Not Given Lisinopril (Zestril) 20 mg PO DAILY [facility] Last Admin: 01/30/19 10:50 Dose: Not Given Pramipexole Dihydrochloride (Mirapex) 0.5 mg PO TID [facility] Last Admin: 01/30/19 14:04 Dose: Not Given Quetiapine Fumarate (Seroquel) 25 mg PO BID [facility] Last Admin: 01/30/19 10:49 Dose: Not Given Tamsulosin HCl (Flomax) 0.4 mg PO DAILY [facility] Last Admin: 01/30/19 10:50 Dose: Not Given - Labs Labs: 01/30/19 07:04 01/30/19 07:04 - Head Exam Head Exam: ATRAUMATIC, NORMOCEPHALIC - ENT Exam ENT Exam: Mucous Membranes Moist - Neck Exam Neck Exam: Normal Inspection - Respiratory Exam Respiratory Exam: Rhonchi, Wheezes - Cardiovascular Exam Cardiovascular Exam: REGULAR RHYTHM - GI/Abdominal Exam GI & Abdominal Exam: Soft Assessment and Plan (1) Cough Assessment & Plan: Most likely secondary to bronchitis/upper respiratory infection Azithromycin and nebulizer treatment inhaled steroids Continue to treat CHF Status: Acute (2) CHF exacerbation Status: Acute
[2019-01-30 19:49] VITALS: BP 160/66; PULSE 68; TEMP 98.1; O2SAT 97
[2019-01-30] MEDS ORDERED: Budesonide 0.5 mg/2 ml Inhal Susp UD INH SCH (20:00)
--- NOTE | 2019-01-30 23:50 | CP.PCM.DIS ---
Provider - Provider Date of Admission: 01/27/19 19:36 Attending physician: Dmitriy Lora MD Consults: 01/27/19 19:44 Cardiology Consult Stat Comment: Consulting Provider: Breezy Garcia Consulting Physician: Breezy Garcia Reason for Consult: chf Pulmonology Consult Stat Comment: Consulting Provider: Eris Khan Consulting Physician: Eris Khan Reason for Consult: shortness of breath Time Spent in preparation of Discharge (in minutes): 30 Hospital Course - Lab Results Lab Results: Micro Results 01/27/19 18:20 Blood Blood Culture - Preliminary NO GROWTH AFTER 3 DAYS 01/27/19 17:50 Blood Blood Culture - Preliminary NO GROWTH AFTER 3 DAYS 01/27/19 17:58 Throat Group A Strep Throat Culture - Final NO BETA STREP GROUP A ISOLATED. Most Recent Lab Values WBC 5.8 K/uL (4.8-10.8) 01/30/19 07:04 RBC 4.20 Mil/uL (4.40-5.90) L 01/30/19 07:04 Hgb 11.2 g/dL (12.0-18.0) L 01/30/19 07:04 Hct 33.6 % (35.0-51.0) L 01/30/19 07:04 MCV 80.0 fL (80.0-94.0) 01/30/19 07:04 MCH 26.7 pg (27.0-31.0) L 01/30/19 07:04 MCHC 33.4 g/dL (33.0-37.0) 01/30/19 07:04 RDW 15.7 % (11.5-14.5) H 01/30/19 07:04 Plt Count 290 K/uL (130-400) 01/30/19 07:04 MPV 8.1 fL (7.2-11.7) 01/30/19 07:04 Neut % (Auto) 77.8 % (50.0-75.0) H 01/27/19 17:53 Lymph % (Auto) 12.0 % (20.0-40.0) L 01/27/19 17:53 Cowley % (Auto) 8.0 % (0.0-10.0) 01/27/19 17:53 Eos % (Auto) 1.8 % (0.0-4.0) 01/27/19 17:53 Baso % (Auto) 0.4 % (0.0-2.0) 01/27/19 17:53 Neut # (Auto) 6.0 K/uL (1.8-7.0) 01/27/19 17:53 Lymph # (Auto) 0.9 K/uL (1.0-4.3) L 01/27/19 17:53 Cowley # (Auto) 0.6 K/uL (0.0-0.8) 01/27/19 17:53 Eos # (Auto) 0.1 K/uL (0.0-0.7) 01/27/19 17:53 Baso # (Auto) 0.0 K/uL (0.0-0.2) 01/27/19 17:53 pO2 34 mm/Hg (30-55) 01/27/19 18:00 VBG pH 7.36 (7.32-7.43) 01/27/19 18:00 VBG pCO2 46 mmHg (40-60) 01/27/19 18:00 VBG HCO3 24.1 mmol/L 01/27/19 18:00 VBG Total CO2 27.4 mmol/L (22-28) 01/27/19 18:00 VBG O2 Sat (Calc) 68.6 % (40-65) H 01/27/19 18:00 VBG Base Excess 0.1 mmol/L (0.0-2.0) 01/27/19 18:00 VBG Potassium 4.1 mmol/L (3.6-5.2) 01/27/19 18:00 Sodium 140.0 mmol/l (132-148) 01/27/19 18:00 Chloride 108.0 mmol/L (98-107) H 01/27/19 18:00 Glucose 151 mg/dl (75-110) H 01/27/19 18:00 Lactate 1.0 mmol/L (0.7-2.1) 01/27/19 18:00 Sodium 137 mmol/L (132-148) 01/30/19 07:04 Potassium 4.4 mmol/L (3.6-5.2) 01/30/19 07:04 Chloride 105 mmol/L (98-107) 01/30/19 07:04 Carbon Dioxide 26 mmol/L (22-30) 01/30/19 07:04 Anion Gap 10 (10-20) 01/30/19 07:04 BUN 27 mg/dL (9-20) H 01/30/19 07:04 Creatinine 1.7 mg/dL (0.8-1.5) H 01/30/19 07:04 Est GFR ( Amer) 47 01/30/19 07:04 Est GFR (Non-Af Amer) 38 01/30/19 07:04 POC Glucose (mg/dL) 177 mg/dL (65-110) H 01/30/19 17:14 Random Glucose 122 mg/dL (75-110) H D 01/30/19 07:04 Calcium 9.4 mg/dl (8.6-10.4) 01/30/19 07:04 Total Bilirubin 1.1 mg/dL (0.2-1.3) 01/27/19 17:53 AST 17 U/L (17-59) D 01/27/19 17:53 ALT < 6 U/L (21-72) L D 01/27/19 17:53 Alkaline Phosphatase 83 U/L (38-126) 01/27/19 17:53 Troponin I < 0.0120 ng/mL (0.00-0.120) 01/27/19 17:53 NT-Pro-B Natriuret Pep 3500 pg/mL (0-900) H 01/27/19 17:53 Total Protein 6.6 g/dL (6.3-8.3) 01/27/19 17:53 Albumin 3.7 g/dL (3.5-5.0) 01/27/19 17:53 Globulin 2.9 gm/dL (2.2-3.9) 01/27/19 17:53 Albumin/Globulin Ratio 1.2 (1.0-2.1) 01/27/19 17:53 Venous Blood Potassium 4.1 mmol/L (3.6-5.2) 01/27/19 18:00 Influenza Typ A,B (EIA) Negative for flu a/b (NEGATIVE) 01/27/19 17:58 Grp A Beta Strep Ag Negative (NEGATIVE) 01/27/19 17:58 Discharge Exam - Head Exam Head Exam: ATRAUMATIC, NORMOCEPHALIC Discharge Plan - Follow Up Plan Condition: STABLE Disposition: HOME/ ROUTINE Instructions: Heart Healthy Diet, Heart Failure, Adult (DC) Additional Instructions: Please follow up with Dr. Lora office in 1 week Please continue medication as per med. rec. Referrals: Dmitriy Lora MD [Staff Provider] -
--- NOTE | 2019-02-01 13:15 | DS ---
DISCHARGE DIAGNOSIS: 1. Acute exacerbation of congestive heart failure. 2. Exacerbation of chronic obstructive pulmonary disease. 3. Diabetes. 4. Hypertension. 5. Alzheimer's. HISTORY: This is an 83-year-old male with history of diabetes, hypertension, hyperlipidemia, Alzheimer's, who came in because of shortness of breath, cough, congestion, wheezing. He was found to be in congestive heart failure. He was given diuretics, intake/output daily, body weight, nebulizer treatment. The patient's condition got better. He was treated, stabilized, and discharged with outpatient followup. CONDITION UPON DISCHARGE: Stable. PHYSICAL EXAMINATION: VITAL SIGNS: Blood pressure 160/66, pulse 68, respiratory rate 20, temperature 98.1. DIAGNOSTIC DATA: The patient's chest x-ray showed congestion with no infiltrates. The patient is stable. He is being discharged, outpatient followup. Dmitriy Lora MD
== END 2019-01-30 21:58 | disposition home or self-care (01) | DRG 291 ==
LOC: C.ER 17:12 → C.9E 19:36 → C.6T 19:55
PROVIDERS: ADMIT Internal Medicine; ATTEND Internal Medicine
DX: I13.0 Hypertensive heart and chronic kidney disease with heart failure and stage 1 through stage 4 chronic kidney disease, or unspecified chronic kidney disease (principal); I50.23 Acute on chronic systolic (congestive) heart failure; I47.2 Ventricular tachycardia; J44.1 Chronic obstructive pulmonary disease with (acute) exacerbation; G20 Parkinson's disease; G30.9 Alzheimer's disease, unspecified; I25.10 Atherosclerotic heart disease of native coronary artery without angina pectoris; I48.91 Unspecified atrial fibrillation; J06.9 Acute upper respiratory infection, unspecified; E78.5 Hyperlipidemia, unspecified; E11.22 Type 2 diabetes mellitus with diabetic chronic kidney disease; F02.80 Dementia in other diseases classified elsewhere, unspecified severity, without behavioral disturbance, psychotic disturbance, mood disturbance, and anxiety; N18.9 Chronic kidney disease, unspecified; N40.0 Benign prostatic hyperplasia without lower urinary tract symptoms; Z87.01 Personal history of pneumonia (recurrent); Z95.0 Presence of cardiac pacemaker; Z95.5 Presence of coronary angioplasty implant and graft; Z95.810 Presence of automatic (implantable) cardiac defibrillator

== ENCOUNTER 2019-02-21 10:43 | Inpatient (IN) | payer MEDICARE, MEDICAID ==
[2019-02-21 10:44] VITALS: BMI 27.1
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
[2019-02-21 15:17] LABS: BASO % 0.3 % (0.0-2.0); EOS % 0.1 % (0.0-4.0); HEMOGLOBIN 11.1 g/dL (12.0-18.0); LYMPH # 0.8 K/uL (1.0-4.3); LYMPH % 7.3 % (20.0-40.0); MEAN CELL VOLUME 81.2 fL (80.0-94.0); MEAN CORPUSCULAR HEMOGLOBIN 26.2 pg (27.0-31.0); MEAN CORPUSCULAR HGB CONC 32.2 g/dL (33.0-37.0); MEAN PLATELET VOLUME 8.2 fL (7.2-11.7); MONO # 0.8 K/uL (0.0-0.8); MONO % 7.1 % (0.0-10.0); NEUT # 9.6 K/uL (1.8-7.0); NEUT % 85.2 % (50.0-75.0); NRBC % 0.1 % (0.0-2.0); PLATELET COUNT 295 K/uL (130-400); RBC 4.26 Mil/uL (4.40-5.90); RED CELL DISTRIBUTION WIDTH 16.2 % (11.5-14.5)
[2019-02-21 15:19] LABS: WHITE BLOOD COUNT 11.2 K/uL (4.8-10.8)
[2019-02-21 15:47] LABS: EOSINOPHIL 2 % (0-4); LYMPHOCYTE 6 % (20-40); MONOCYTE 5 % (0-10); NEUTROPHIL 87 % (50-75); TOTAL CELLS COUNTED 100
[2019-02-21 15:48] LABS: PLATELET ESTIMATE NORMAL (NORMAL)
[2019-02-21 15:51] LABS: ALB/GLOB RATIO 1.1 (1.0-2.1); ALBUMIN 3.1 g/dL (3.5-5.0); ALT/SGPT 25 U/L (21-72); AST/SGOT 24 U/L (17-59); BLOOD UREA NITROGEN 22 mg/dL (9-20); GFR NON-AFRICAN AMERICAN > 60
[2019-02-21] MEDS ORDERED: Albuterol-Ipratrop 3 mg / 0.5 (3 ml) UD INH PRN (18:08)
[2019-02-21] MEDS ORDERED: Albuterol-Ipratrop 3 mg / 0.5 (3 ml) UD INH SCH (20:00)
[2019-02-21] MEDS: Insulin Detemir 100 units/ml Vial (Levemir) SC SCH (22:16)
[2019-02-21] MEDS: (Novolin R) Insulin Human Regular 100 units/ml vial SC SCH (22:17)
[2019-02-21] MEDS: Magnesium Hydroxide Susp 30 ml UD PO SCH (22:17)
[2019-02-22 07:32] LABS: SQUAMOUS EPITHIAL < 1 /hpf (0-5); URINE BILIRUBIN NEGATIVE (NEGATIVE); URINE BLOOD NEGATIVE (NEGATIVE); URINE CLARITY Clear (Clear); URINE COLOR Yellow (YELLOW); URINE GLUCOSE (UA) NORMAL (Normal); URINE LEUKOCYTE ESTERASE NEG Leu/uL (Negative); URINE PROTEIN NEGATIVE (NEGATIVE); URINE UROBILINOGEN NORMAL mg/dL (0.2-1.0)
[2019-02-22 08:18] LABS: BASO % 0.5 % (0.0-2.0); EOS # 0.1 K/uL (0.0-0.7); EOS % 1.3 % (0.0-4.0); HEMOGLOBIN 10.7 g/dL (12.0-18.0); LYMPH # 0.8 K/uL (1.0-4.3); LYMPH % 10.4 % (20.0-40.0); MEAN CELL VOLUME 80.3 fL (80.0-94.0); MEAN CORPUSCULAR HEMOGLOBIN 26.4 pg (27.0-31.0); MEAN CORPUSCULAR HGB CONC 32.9 g/dL (33.0-37.0); MEAN PLATELET VOLUME 7.9 fL (7.2-11.7); MONO # 0.8 K/uL (0.0-0.8); MONO % 10.2 % (0.0-10.0); NEUT % 77.6 % (50.0-75.0); RBC 4.04 Mil/uL (4.40-5.90); RED CELL DISTRIBUTION WIDTH 16.2 % (11.5-14.5); WHITE BLOOD COUNT 7.7 K/uL (4.8-10.8)
[2019-02-22 08:24] LABS: INR 1.1; PROTHROMBIN TIME 12.1 SECONDS (9.7-12.2)
[2019-02-22 08:30] LABS: BLOOD UREA NITROGEN 21 mg/dL (9-20); GFR NON-AFRICAN AMERICAN > 60
[2019-02-22] MEDS: (Novolin R) Insulin Human Regular 100 units/ml vial SC SCH ×4 (08:41→21:18)
[2019-02-22] MEDS: Enoxaparin 40 mg Syringe SC SCH (10:41)
[2019-02-22] MEDS: Magnesium Hydroxide Susp 30 ml UD PO SCH (21:25)
[2019-02-22] MEDS: Insulin Detemir 100 units/ml Vial (Levemir) SC SCH (21:26)
--- NOTE | 2019-02-23 00:01 | CARD ---
APPROVED REPORT Date of service: 02/21/2019 EKG Measurement Heart [id number] <Conclusion> Normal sinus rhythm Left axis deviation Nonspecific intraventricular block Inferolateral infarct, age undetermined Abnormal ECG
--- NOTE | 2019-02-23 00:51 | CP.PCM.HP ---
Present on Admission - Present on Admission Any Indicators Present on Admission: No Past Patient History - Infectious Disease Hx of Infectious Diseases: None - Past Medical History & Family History Past Medical History?: Yes - Past Social History Smoking Status: Never Smoked - CARDIAC Hx Congestive Heart Failure: Yes Hx Hypercholesterolemia: Yes Hx Hypertension: Yes - PULMONARY Hx Asthma: Yes Hx Pneumonia: Yes - NEUROLOGICAL Hx Alzheimer's Disease: Yes Hx Dementia: Yes Hx Parkinson's Disease: Yes Hx Seizures: No - HEENT Hx HEENT Problems: No - RENAL Hx Chronic Kidney Disease: Yes - ENDOCRINE/METABOLIC Hx Diabetes Mellitus Type 2: Yes - HEMATOLOGICAL/ONCOLOGICAL Hx Human Immunodeficiency Virus (HIV): No - INTEGUMENTARY Hx Dermatological Problems: No - MUSCULOSKELETAL/RHEUMATOLOGICAL Hx Arthritis: Yes - GASTROINTESTINAL Hx Gastrointestinal Disorders: No - GENITOURINARY/GYNECOLOGICAL Hx Sexually Transmitted Disorders: No - PSYCHIATRIC Hx Substance Use: No - SURGICAL HISTORY Hx Coronary Stent: Yes - ANESTHESIA Hx Anesthesia: Yes Hx Anesthesia Reactions: No Meds Allergies/Adverse Reactions: Allergies Allergy/AdvReac Type Severity Reaction Status Date / Time nitroglycerin Allergy Mild ITCHING Verified 01/28/19 00:26 Results - Vital Signs Recent Vital Signs: Last Vital Signs Temp 98 F 02/23/19 00:00 Pulse 65 02/23/19 00:00 Resp 20 02/23/19 00:00 BP 158/67 H 02/23/19 00:00 Pulse Ox 96 02/23/19 00:00 - Labs Result Diagrams: 02/22/19 08:11 02/22/19 08:11 Labs: Laboratory Results - last 24 hr 02/22/19 02/22/19 02/22/19 06:35 07:52 08:11 WBC 7.7 RBC 4.04 L Hgb 10.7 L Hct 32.5 L MCV 80.3 MCH 26.4 L MCHC 32.9 L RDW 16.2 H Plt Count 264 MPV 7.9 Neut % (Auto) 77.6 H Lymph % (Auto) 10.4 L Mercer % (Auto) 10.2 H Eos % (Auto) 1.3 Baso % (Auto) 0.5 Neut # (Auto) 6.0 Lymph # (Auto) 0.8 L Mercer # (Auto) 0.8 Eos # (Auto) 0.1 Baso # (Auto) 0.0 PT INR Sodium Potassium Chloride Carbon Dioxide Anion Gap BUN Creatinine Est GFR ( Amer) Est GFR (Non-Af Amer) POC Glucose (mg/dL) 157 H Random Glucose Calcium Urine Color Yellow Urine Clarity Clear Urine pH 6.0 Ur Specific Derwood 1.011 Urine Protein Negative Urine Glucose (UA) Normal Urine Ketones Negative Urine Blood Negative Urine Nitrate Negative Urine Bilirubin Negative Urine Urobilinogen Normal Ur Leukocyte Esterase Neg Urine WBC (Auto) < 1 Ur Squamous Epith Cells < 1 02/22/19 02/22/19 02/22/19 08:11 08:11 12:01 WBC RBC Hgb Hct MCV MCH MCHC RDW Plt Count MPV Neut % (Auto) Lymph % (Auto) Mercer % (Auto) Eos % (Auto) Baso % (Auto) Neut # (Auto) Lymph # (Auto) Mercer # (Auto) Eos # (Auto) Baso # (Auto) PT 12.1 INR 1.1 Sodium 138 Potassium 4.3 Chloride 104 Carbon Dioxide 28 Anion Gap 10 BUN 21 H Creatinine 1.1 Est GFR ( Amer) > 60 Est GFR (Non-Af Amer) > 60 POC Glucose (mg/dL) 118 H Random Glucose 155 H D Calcium 9.0 Urine Color Urine Clarity Urine pH Ur Specific Derwood Urine Protein Urine Glucose (UA) Urine Ketones Urine Blood Urine Nitrate Urine Bilirubin Urine Urobilinogen Ur Leukocyte Esterase Urine WBC (Auto) Ur Squamous Epith Cells 02/22/19 02/22/19 16:10 21:12 WBC RBC Hgb Hct MCV MCH MCHC RDW Plt Count MPV Neut % (Auto) Lymph % (Auto) Mercer % (Auto) Eos % (Auto) Baso % (Auto) Neut # (Auto) Lymph # (Auto) Mercer # (Auto) Eos # (Auto) Baso # (Auto) PT INR Sodium Potassium Chloride Carbon Dioxide Anion Gap BUN Creatinine Est GFR ( Amer) Est GFR (Non-Af Amer) POC Glucose (mg/dL) 140 H 204 H Random Glucose Calcium Urine Color Urine Clarity Urine pH Ur Specific Derwood Urine Protein Urine Glucose (UA) Urine Ketones Urine Blood Urine Nitrate Urine Bilirubin Urine Urobilinogen Ur Leukocyte Esterase Urine WBC (Auto) Ur Squamous Epith Cells
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
[2019-02-23] MEDS: (Novolin R) Insulin Human Regular 100 units/ml vial SC SCH ×5 (08:14→22:53)
[2019-02-23] MEDS: Enoxaparin 40 mg Syringe SC SCH ×2 (09:50→12:08)
[2019-02-23] MEDS: Insulin Detemir 100 units/ml Vial (Levemir) SC SCH (22:52)
[2019-02-23] MEDS: Magnesium Hydroxide Susp 30 ml UD PO SCH (22:52)
--- NOTE | 2019-02-23 22:59 | CP.PCM.PN ---
Subjective - Date & Time of Evaluation Date of Evaluation: 02/23/19 Time of Evaluation: 07:40 - Subjective Subjective: dict Objective - Vital Signs/Intake and Output Vital Signs (last 24 hours): Temp Pulse Resp BP Pulse Ox 98.4 F 66 20 165/70 H 93 L 02/23/19 18:56 02/23/19 18:56 02/23/19 18:56 02/23/19 18:56 02/23/19 16:00 Intake and Output: 02/23/19 02/24/19 18:59 06:59 Intake Total 450 400 Output Total 850 Balance -400 400 - Medications Medications: Current Medications Albuterol/Ipratropium (Duoneb 3 Mg/0.5 Mg (3 Ml) Ud) 3 ml INH RQ6 PRN PRN Reason: Wheezing Amiodarone HCl (Cordarone) 200 mg PO DAILY [facility] Last Admin: 02/23/19 09:50 Dose: 200 mg Aspirin (Ecotrin) 81 mg PO DAILY [facility] Last Admin: 02/23/19 09:50 Dose: 81 mg Carbidopa/Levodopa (Sinemet 10/100) 1 tab PO TID [facility] Last Admin: 02/23/19 18:45 Dose: 1 tab Carvedilol (Coreg) 12.5 mg PO BID [facility] Last Admin: 02/23/19 18:00 Dose: Not Given Docusate Sodium (Colace) 100 mg PO TID [facility] Last Admin: 02/23/19 18:00 Dose: Not Given Enoxaparin Sodium (Lovenox) 40 mg SC DAILY [facility] Last Admin: 02/23/19 12:08 Dose: Not Given Finasteride (Proscar) 5 mg PO DAILY [facility] Last Admin: 02/23/19 09:49 Dose: 5 mg Furosemide (Lasix) 20 mg PO DAILY [facility] Last Admin: 02/23/19 09:50 Dose: 20 mg Hydralazine HCl (Apresoline) 50 mg PO Q8 [facility] Last Admin: 02/23/19 22:52 Dose: Not Given Insulin Detemir (Levemir) 10 unit SC [facility] Last Admin: 02/23/19 22:52 Dose: Not Given Insulin Human Regular (Novolin R) 0 unit SC [facility]; Protocol Last Admin: 02/23/19 22:53 Dose: Not Given Lisinopril (Zestril) 20 mg PO DAILY [facility] Last Admin: 02/23/19 09:50 Dose: 20 mg Magnesium Hydroxide (Milk Of Magnesia) 30 ml PO HS [facility] Last Admin: 02/23/19 22:52 Dose: Not Given Pneumococcal Polyvalent Vaccine (Pneumovax 23 Vaccine) 0.5 ml IM .ONCE ONE Stop: 02/24/19 10:01 Quetiapine Fumarate (Seroquel) 25 mg PO BID [facility] Last Admin: 02/23/19 18:00 Dose: Not Given Tamsulosin HCl (Flomax) 0.4 mg PO DAILY [facility] Last Admin: 02/23/19 09:50 Dose: 0.4 mg - Labs Labs: 02/22/19 08:11 02/22/19 08:11 PT 12.1 SECONDS (9.7-12.2) 02/22/19 08:11 INR 1.1 02/22/19 08:11
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
[2019-02-24] MEDS: (Novolin R) Insulin Human Regular 100 units/ml vial SC SCH ×4 (07:57→21:44)
[2019-02-24] MEDS: Enoxaparin 40 mg Syringe SC SCH ×2 (09:04→10:31)
[2019-02-24] MEDS ORDERED: Pneumococcal 23-Valent Vaccine IM ONE (10:00)
[2019-02-24] MEDS: Insulin Detemir 100 units/ml Vial (Levemir) SC SCH (21:44)
[2019-02-24] MEDS: Magnesium Hydroxide Susp 30 ml UD PO SCH (21:45)
--- NOTE | 2019-02-25 01:00 | CP.PCM.PN ---
Subjective - Date & Time of Evaluation Date of Evaluation: 02/24/19 Time of Evaluation: 11:11 - Subjective Subjective: dict Objective - Vital Signs/Intake and Output Vital Signs (last 24 hours): Temp Pulse Resp BP Pulse Ox 98.8 F 92 H 16 160/66 H 98 02/25/19 00:00 02/25/19 00:00 02/25/19 00:00 02/25/19 00:00 02/25/19 00:00 Intake and Output: 02/24/19 02/25/19 18:59 06:59 Intake Total 380 Balance 380 - Medications Medications: Current Medications Albuterol/Ipratropium (Duoneb 3 Mg/0.5 Mg (3 Ml) Ud) 3 ml INH RQ6 PRN PRN Reason: Wheezing Amiodarone HCl (Cordarone) 200 mg PO DAILY [facility] Last Admin: 02/24/19 09:04 Dose: 200 mg Aspirin (Ecotrin) 81 mg PO DAILY [facility] Last Admin: 02/24/19 09:03 Dose: 81 mg Carbidopa/Levodopa (Sinemet 10/100) 1 tab PO TID [facility] Last Admin: 02/24/19 17:16 Dose: 1 tab Carvedilol (Coreg) 12.5 mg PO BID [facility] Last Admin: 02/24/19 17:37 Dose: 12.5 mg Docusate Sodium (Colace) 100 mg PO TID [facility] Last Admin: 02/24/19 17:16 Dose: 100 mg Enoxaparin Sodium (Lovenox) 40 mg SC DAILY [facility] Last Admin: 02/24/19 10:31 Dose: Not Given Finasteride (Proscar) 5 mg PO DAILY [facility] Last Admin: 02/24/19 09:03 Dose: 5 mg Furosemide (Lasix) 20 mg PO DAILY [facility] Last Admin: 02/24/19 09:04 Dose: 20 mg Hydralazine HCl (Apresoline) 50 mg PO Q8 [facility] Last Admin: 02/24/19 21:44 Dose: Not Given Insulin Detemir (Levemir) 10 unit SC [facility] Last Admin: 02/24/19 21:44 Dose: Not Given Insulin Human Regular (Novolin R) 0 unit SC [facility]; Protocol Last Admin: 02/24/19 21:44 Dose: Not Given Lisinopril (Zestril) 20 mg PO DAILY [facility] Last Admin: 04/20/19 09:04 Dose: 20 mg Magnesium Hydroxide (Milk Of Magnesia) 30 ml PO HS [facility] Last Admin: 02/24/19 21:45 Dose: Not Given Quetiapine Fumarate (Seroquel) 25 mg PO BID [facility] Last Admin: 02/24/19 17:15 Dose: 25 mg Tamsulosin HCl (Flomax) 0.4 mg PO DAILY [facility] Last Admin: 02/24/19 09:04 Dose: 0.4 mg - Labs Labs: 02/22/19 08:11 02/22/19 08:11 PT 12.1 SECONDS (9.7-12.2) 02/22/19 08:11 INR 1.1 02/22/19 08:11
[2019-02-25] MEDS: (Novolin R) Insulin Human Regular 100 units/ml vial SC SCH ×4 (07:35→21:25)
[2019-02-25] MEDS: Enoxaparin 40 mg Syringe SC SCH (09:18)
[2019-02-25 11:33] LABS: BASO % 0.4 % (0.0-2.0); EOS # 0.1 K/uL (0.0-0.7); EOS % 1.3 % (0.0-4.0); HEMOGLOBIN 11.4 g/dL (12.0-18.0); LYMPH % 17.8 % (20.0-40.0); MEAN CELL VOLUME 80.3 fL (80.0-94.0); MEAN CORPUSCULAR HEMOGLOBIN 26.8 pg (27.0-31.0); MEAN CORPUSCULAR HGB CONC 33.4 g/dL (33.0-37.0); MEAN PLATELET VOLUME 8.2 fL (7.2-11.7); MONO # 0.6 K/uL (0.0-0.8); MONO % 10.3 % (0.0-10.0); NEUT # 3.9 K/uL (1.8-7.0); NEUT % 70.2 % (50.0-75.0); RBC 4.24 Mil/uL (4.40-5.90); RED CELL DISTRIBUTION WIDTH 15.9 % (11.5-14.5); WHITE BLOOD COUNT 5.6 K/uL (4.8-10.8)
[2019-02-25 12:01] LABS: ALB/GLOB RATIO 1.1 (1.0-2.1); ALBUMIN 3.4 g/dL (3.5-5.0); ALT/SGPT 27 U/L (21-72); AST/SGOT 22 U/L (17-59); BLOOD UREA NITROGEN 24 mg/dL (9-20); CALCIUM 9.2 mg/dl (8.6-10.4); GFR NON-AFRICAN AMERICAN > 60
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
[2019-02-25] MEDS: Magnesium Hydroxide Susp 30 ml UD PO SCH (20:59)
[2019-02-25] MEDS: Insulin Detemir 100 units/ml Vial (Levemir) SC SCH (21:30)
--- NOTE | 2019-02-25 23:58 | CP.PCM.PN ---
Subjective - Date & Time of Evaluation Date of Evaluation: 02/25/19 Time of Evaluation: 07:40 - Subjective Subjective: dict Objective - Vital Signs/Intake and Output Vital Signs (last 24 hours): Temp Pulse Resp BP Pulse Ox 98.6 F 69 18 144/76 98 02/25/19 23:50 02/25/19 23:50 02/25/19 23:50 02/25/19 23:50 02/25/19 23:50 Intake and Output: 02/25/19 02/26/19 18:59 06:59 Intake Total 300 300 Balance 300 300 - Medications Medications: Current Medications Albuterol/Ipratropium (Duoneb 3 Mg/0.5 Mg (3 Ml) Ud) 3 ml INH RQ6 PRN PRN Reason: Wheezing Amiodarone HCl (Cordarone) 200 mg PO DAILY [facility] Last Admin: 02/25/19 09:17 Dose: 200 mg Aspirin (Ecotrin) 81 mg PO DAILY [facility] Last Admin: 02/25/19 09:16 Dose: 81 mg Carbidopa/Levodopa (Sinemet 10/100) 1 tab PO TID [facility] Last Admin: 02/25/19 17:29 Dose: 1 tab Carvedilol (Coreg) 12.5 mg PO BID [facility] Last Admin: 02/25/19 17:29 Dose: 12.5 mg Docusate Sodium (Colace) 100 mg PO TID [facility] Last Admin: 02/25/19 17:34 Dose: 100 mg Enoxaparin Sodium (Lovenox) 40 mg SC DAILY [facility] Last Admin: 02/25/19 09:18 Dose: Not Given Finasteride (Proscar) 5 mg PO DAILY [facility] Last Admin: 02/25/19 09:17 Dose: 5 mg Furosemide (Lasix) 20 mg PO DAILY [facility] Last Admin: 02/25/19 09:17 Dose: 20 mg Hydralazine HCl (Apresoline) 100 mg PO Q8 [facility] Last Admin: 02/25/19 21:29 Dose: 100 mg Insulin Detemir (Levemir) 10 unit SC [facility] Last Admin: 02/25/19 21:30 Dose: 10 units Insulin Human Regular (Novolin R) 0 unit SC [facility]; Protocol Last Admin: 02/25/19 21:25 Dose: 2 units Lisinopril (Zestril) 20 mg PO DAILY [facility] Last Admin: 04/21/19 09:17 Dose: 20 mg Magnesium Hydroxide (Milk Of Magnesia) 30 ml PO HS [facility] Last Admin: 02/25/19 20:59 Dose: Not Given Quetiapine Fumarate (Seroquel) 25 mg PO BID [facility] Last Admin: 02/25/19 17:29 Dose: 25 mg Tamsulosin HCl (Flomax) 0.4 mg PO DAILY [facility] Last Admin: 02/25/19 09:16 Dose: 0.4 mg - Labs Labs: 02/25/19 11:23 02/25/19 11:23 PT 12.1 SECONDS (9.7-12.2) 02/22/19 08:11 INR 1.1 02/22/19 08:11
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
[2019-02-26] MEDS: (Novolin R) Insulin Human Regular 100 units/ml vial SC SCH ×4 (07:39→21:33)
[2019-02-26 07:56] VITALS: RESP 20
[2019-02-26] MEDS: Enoxaparin 40 mg Syringe SC SCH (09:31)
[2019-02-26] MEDS: Magnesium Hydroxide Susp 30 ml UD PO SCH (21:33)
[2019-02-26] MEDS: Insulin Detemir 100 units/ml Vial (Levemir) SC SCH (21:33)
--- NOTE | 2019-02-26 22:31 | CP.PCM.PN ---
Subjective - Date & Time of Evaluation Date of Evaluation: 02/26/19 Time of Evaluation: 07:00 - Subjective Subjective: dict Objective - Vital Signs/Intake and Output Vital Signs (last 24 hours): Temp Pulse Resp BP Pulse Ox 97.5 F L 60 20 153/53 H 96 02/26/19 15:00 02/26/19 21:26 02/26/19 15:00 02/26/19 21:26 02/26/19 15:00 Intake and Output: 02/26/19 02/27/19 18:59 06:59 Intake Total 600 Output Total 600 Balance -600 600 - Medications Medications: Current Medications Amiodarone HCl (Cordarone) 200 mg PO DAILY [facility] Last Admin: 02/26/19 09:32 Dose: 200 mg Aspirin (Ecotrin) 81 mg PO DAILY [facility] Last Admin: 02/26/19 09:32 Dose: 81 mg Carbidopa/Levodopa (Sinemet 10/100) 1 tab PO TID [facility] Last Admin: 02/26/19 17:15 Dose: 1 tab Carvedilol (Coreg) 12.5 mg PO BID [facility] Last Admin: 02/26/19 17:14 Dose: 12.5 mg Docusate Sodium (Colace) 100 mg PO TID [facility] Last Admin: 02/26/19 17:14 Dose: 100 mg Enoxaparin Sodium (Lovenox) 40 mg SC DAILY [facility] Last Admin: 02/26/19 09:31 Dose: 40 mg Finasteride (Proscar) 5 mg PO DAILY [facility] Last Admin: 02/26/19 09:33 Dose: 5 mg Furosemide (Lasix) 20 mg PO DAILY [facility] Last Admin: 02/26/19 09:33 Dose: 20 mg Hydralazine HCl (Apresoline) 100 mg PO Q8 [facility] Last Admin: 02/26/19 21:33 Dose: Not Given Insulin Detemir (Levemir) 10 unit SC [facility] Last Admin: 02/26/19 21:33 Dose: Not Given Insulin Human Regular (Novolin R) 0 unit SC [facility]; Protocol Last Admin: 02/26/19 21:33 Dose: Not Given Lisinopril (Zestril) 20 mg PO DAILY [facility] Last Admin: 02/26/19 09:32 Dose: 20 mg Magnesium Hydroxide (Milk Of Magnesia) 30 ml PO [facility] Last Admin: 02/26/19 21:33 Dose: Not Given Quetiapine Fumarate (Seroquel) 25 mg PO BID [facility] Last Admin: 02/26/19 17:15 Dose: 25 mg Tamsulosin HCl (Flomax) 0.4 mg PO DAILY [facility] Last Admin: 02/26/19 09:33 Dose: 0.4 mg - Labs Labs: 02/25/19 11:23 02/25/19 11:23 PT 12.1 SECONDS (9.7-12.2) 02/22/19 08:11 INR 1.1 02/22/19 08:11
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
--- NOTE | 2019-02-27 05:49 | CP.PCM.CON ---
History of Present Illness - History of Present Illness History of Present Illness: Patient seen and evaluated for CHF ECHO pending Will continue current meds Will follow Past Patient History - Infectious Disease Hx of Infectious Diseases: None - Past Medical History & Family History Past Medical History?: Yes - Past Social History Smoking Status: Never Smoked - CARDIAC Hx Congestive Heart Failure: Yes Hx Hypercholesterolemia: Yes Hx Hypertension: Yes - PULMONARY Hx Asthma: Yes Hx Pneumonia: Yes - NEUROLOGICAL Hx Alzheimer's Disease: Yes Hx Dementia: Yes Hx Parkinson's Disease: Yes Hx Seizures: No - HEENT Hx HEENT Problems: No - RENAL Hx Chronic Kidney Disease: Yes - ENDOCRINE/METABOLIC Hx Diabetes Mellitus Type 2: Yes - HEMATOLOGICAL/ONCOLOGICAL Hx Human Immunodeficiency Virus (HIV): No - INTEGUMENTARY Hx Dermatological Problems: No - MUSCULOSKELETAL/RHEUMATOLOGICAL Hx Arthritis: Yes Hx Falls: Yes - GASTROINTESTINAL Hx Gastrointestinal Disorders: No - GENITOURINARY/GYNECOLOGICAL Hx Sexually Transmitted Disorders: No - PSYCHIATRIC Hx Substance Use: No - SURGICAL HISTORY Hx Coronary Stent: Yes - ANESTHESIA Hx Anesthesia: Yes Hx Anesthesia Reactions: No Meds Allergies/Adverse Reactions: Allergies Allergy/AdvReac Type Severity Reaction Status Date / Time nitroglycerin Allergy Mild ITCHING Verified 01/28/19 00:26 - Medications Medications: Current Medications Amiodarone HCl (Cordarone) 200 mg PO DAILY [facility] Last Admin: 02/26/19 09:32 Dose: 200 mg Aspirin (Ecotrin) 81 mg PO DAILY [facility] Last Admin: 02/26/19 09:32 Dose: 81 mg Carbidopa/Levodopa (Sinemet 10/100) 1 tab PO TID [facility] Last Admin: 02/26/19 17:15 Dose: 1 tab Carvedilol (Coreg) 12.5 mg PO BID [facility] Last Admin: 02/26/19 17:14 Dose: 12.5 mg Docusate Sodium (Colace) 100 mg PO TID [facility] Last Admin: 02/26/19 17:14 Dose: 100 mg Enoxaparin Sodium (Lovenox) 40 mg SC DAILY [facility] Last Admin: 02/26/19 09:31 Dose: 40 mg Finasteride (Proscar) 5 mg PO DAILY [facility] Last Admin: 02/26/19 09:33 Dose: 5 mg Furosemide (Lasix) 20 mg PO DAILY [facility] Last Admin: 02/26/19 09:33 Dose: 20 mg Hydralazine HCl (Apresoline) 100 mg PO Q8 [facility] Last Admin: 02/26/19 21:33 Dose: Not Given Insulin Detemir (Levemir) 10 unit SC [facility] Last Admin: 02/26/19 21:33 Dose: Not Given Insulin Human Regular (Novolin R) 0 unit SC [facility]; Protocol Last Admin: 02/26/19 21:33 Dose: Not Given Lisinopril (Zestril) 20 mg PO DAILY [facility] Last Admin: 02/26/19 09:32 Dose: 20 mg Magnesium Hydroxide (Milk Of Magnesia) 30 ml PO [facility] Last Admin: 02/26/19 21:33 Dose: Not Given Quetiapine Fumarate (Seroquel) 25 mg PO BID [facility] Last Admin: 02/26/19 17:15 Dose: 25 mg Tamsulosin HCl (Flomax) 0.4 mg PO DAILY [facility] Last Admin: 02/26/19 09:33 Dose: 0.4 mg Results - Vital Signs Recent Vital Signs: Last Vital Signs Temp 97.5 F L 02/26/19 15:00 Pulse 60 02/26/19 21:26 Resp 20 02/26/19 15:00 BP 153/53 H 02/26/19 21:26 Pulse Ox 96 02/26/19 15:00 - Labs Result Diagrams: 02/25/19 11:23 02/25/19 11:23 Labs: Laboratory Results - last 24 hr 02/26/19 02/26/19 02/26/19 07:07 11:19 16:08 POC Glucose (mg/dL) 150 H 243 H 179 H 02/26/19 20:57 POC Glucose (mg/dL) 153 H
[2019-02-27] MEDS: (Novolin R) Insulin Human Regular 100 units/ml vial SC SCH ×3 (08:30→17:11)
[2019-02-27] MEDS: Enoxaparin 40 mg Syringe SC SCH (10:04)
--- NOTE | 2019-02-27 14:29 | CP.PCM.PN ---
Subjective - Date & Time of Evaluation Date of Evaluation: 02/27/19 Time of Evaluation: 14:28 - Subjective Subjective: PATIENT SEEN AND EXAMINED AT THE BEDSIDE Objective - Vital Signs/Intake and Output Vital Signs (last 24 hours): Temp Pulse Resp BP Pulse Ox 97.5 F L 58 L 20 179/72 H 99 02/27/19 08:47 02/27/19 08:47 02/27/19 08:47 02/27/19 10:03 02/27/19 08:47 Intake and Output: 02/27/19 02/27/19 06:59 18:59 Intake Total 780 Output Total 150 Balance 780 -150 - Medications Medications: Current Medications Amiodarone HCl (Cordarone) 200 mg PO DAILY [facility] Last Admin: 02/27/19 10:03 Dose: 200 mg Aspirin (Ecotrin) 81 mg PO DAILY [facility] Last Admin: 02/27/19 10:03 Dose: 81 mg Carbidopa/Levodopa (Sinemet 10/100) 1 tab PO TID [facility] Last Admin: 02/27/19 13:09 Dose: Not Given Carvedilol (Coreg) 12.5 mg PO BID [facility] Last Admin: 02/27/19 10:02 Dose: 12.5 mg Docusate Sodium (Colace) 100 mg PO TID [facility] Last Admin: 02/27/19 13:10 Dose: Not Given Enoxaparin Sodium (Lovenox) 40 mg SC DAILY [facility] Last Admin: 02/27/19 10:04 Dose: 40 mg Finasteride (Proscar) 5 mg PO DAILY [facility] Last Admin: 02/27/19 10:03 Dose: 5 mg Furosemide (Lasix) 20 mg PO DAILY [facility] Last Admin: 02/27/19 10:03 Dose: 20 mg Hydralazine HCl (Apresoline) 100 mg PO Q8 [facility] Last Admin: 02/27/19 13:08 Dose: Not Given Insulin Detemir (Levemir) 10 unit SC [facility] Last Admin: 02/26/19 21:33 Dose: Not Given Insulin Human Regular (Novolin R) 0 unit SC [facility]; Protocol Last Admin: 02/27/19 12:01 Dose: 4 units Lisinopril (Zestril) 20 mg PO DAILY [facility] Last Admin: 02/27/19 10:03 Dose: 20 mg Magnesium Hydroxide (Milk Of Magnesia) 30 ml PO [facility] Last Admin: 02/26/19 21:33 Dose: Not Given Quetiapine Fumarate (Seroquel) 25 mg PO BID [facility] Last Admin: 02/27/19 10:02 Dose: 25 mg Tamsulosin HCl (Flomax) 0.4 mg PO DAILY [facility] Last Admin: 02/27/19 10:03 Dose: 0.4 mg - Labs Labs: 02/25/19 11:23 02/25/19 11:23 PT 12.1 SECONDS (9.7-12.2) 02/22/19 08:11 INR 1.1 02/22/19 08:11 Assessment and Plan - Assessment and Plan (Free Text) Assessment: PLACE UNDER THE SERVICE OF DR MCCALL AT THE FACILITY -----CALL FOR ADMITTING ORDER CONTINUE HOME MEDICATION PER MED REC ACTIVITY TOLERATED CALL DR MCCALL FOR FURTHER ORDER
[2019-02-27 15:53] VITALS: PULSE 63; TEMP 98; O2SAT 94
[2019-02-27 17:11] VITALS: BP 169/86
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
== END 2019-02-27 17:41 | DRG 125 ==
LOC: C.ER 10:43 → EEVIPCON 14:49 → C.3T 14:49 → OBSVTOIN 02-23 16:22
PROVIDERS: ADMIT Internal Medicine; ATTEND Internal Medicine
DX: S00.11XA Contusion of right eyelid and periocular area, initial encounter (principal); I13.0 Hypertensive heart and chronic kidney disease with heart failure and stage 1 through stage 4 chronic kidney disease, or unspecified chronic kidney disease; S00.03XA Contusion of scalp, initial encounter; E11.22 Type 2 diabetes mellitus with diabetic chronic kidney disease; I25.10 Atherosclerotic heart disease of native coronary artery without angina pectoris; E78.00 Pure hypercholesterolemia, unspecified; I50.9 Heart failure, unspecified; G20 Parkinson's disease; F02.80 Dementia in other diseases classified elsewhere, unspecified severity, without behavioral disturbance, psychotic disturbance, mood disturbance, and anxiety; G30.9 Alzheimer's disease, unspecified; N18.9 Chronic kidney disease, unspecified; E78.5 Hyperlipidemia, unspecified; J44.9 Chronic obstructive pulmonary disease, unspecified; Z95.5 Presence of coronary angioplasty implant and graft; Z74.01 Bed confinement status; J32.0 Chronic maxillary sinusitis; Y09 Assault by unspecified means